=== PATIENT | male | born 1950 | race Caucasian/White ===

== ENCOUNTER 2020-11-26 06:53 | Outpatient (REF) | payer MEDICARE, SELFPAY ==
[2020-11-26 07:44] LABS: Anion Gap 12 (12-20); Blood Urea Nitrogen 12 mg/dL (9-16); Carbon Dioxide 28 mmol/L (22-29); Chloride 105 mmol/L (96-108); Estimated Glomerular Filt Rate > 60; Potassium 4.8 mmol/l (3.3-5.1); Sodium 140 mmol/L (135-145)
== END 2020-11-26 06:54 | disposition home or self-care (01) ==
LOC: HO.LAB 06:53
PROVIDERS: Visit Provider Family Medicine
DX: R79.89 Other specified abnormal findings of blood chemistry (principal)
CPT/HCPCS: 36415; 80051; 82565; 84520

== ENCOUNTER → 2021-01-13 12:36 | Outpatient (BNVA) | payer MEDICARE, SELFPAY | PROVIDERS: PCP Family Medicine; Visit Provider Internal Medicine Cardiovascular Disease | DX: R53.83 Other fatigue (principal); I25.10 Atherosclerotic heart disease of native coronary artery without angina pectoris; I10 Essential (primary) hypertension | CPT/HCPCS: 99212 ==

== ENCOUNTER 2021-06-30 09:16 | Outpatient (REF) | payer MEDICARE, SELFPAY ==
[2021-06-30 10:13] LABS: MANUAL DIFF FLAG NO
[2021-06-30 10:19] LABS: Basophils Percent Auto 0.5 % (0-2); Eosinophils Absolute Auto 0.3 X10*3/uL (0.0-0.4); Eosinophils Percent Auto 4.3 % (0-4); Hematocrit 43.5 % (42-52); Hemoglobin 14.6 g/dl (14.0-18.0); Imm Gran Abs Auto 0.04 X10*3/uL (0.00-0.03); Imm Gran Pct Auto 0.7 % (0.0-0.4); Lymphocytes Absolute Auto 1.5 X10*3/uL (1.2-4.9); Lymphocytes Percent Auto 25.6 % (20-40); Mean Corpuscular HGB Conc 33.6 g/dl (31.0-36.0); Mean Corpuscular Hemoglobin 32.4 pg (27.0-33.0); Mean Corpuscular Volume 96.7 fL (80-98); Mean Platelet Volume 9.6 fL (9.4-12.4); Monocytes Absolute Auto 0.6 X10*3/uL (0.1-1.2); Monocytes Percent Auto 10.1 % (2-11); Neutrophils Absolute Auto 3.4 X10*3/uL (2.0-8.3); Neutrophils Percent Auto 58.8 % (45-73); Platelet Count 214 X10*3/uL (160-400); White Blood Count 5.8 X10*3/uL (4.8-10.8)
[2021-06-30 10:40] LABS: Alanine Aminotransferase 27 U/L (0-40); Anion Gap 11 (12-20); Aspartate Amino Transferase 25 U/L (5-37); Blood Urea Nitrogen 12 mg/dL (9-16); Carbon Dioxide 27 mmol/L (22-29); Chloride 107 mmol/L (96-108); Estimated Glomerular Filt Rate > 60; Magnesium 2.2 mg/dL (1.6-2.6); Potassium 4.2 mmol/L (3.3-5.1); Sodium 141 mmol/L (135-145)
== END 2021-06-30 09:17 | disposition home or self-care (01) ==
LOC: HO.10HDL 09:16
PROVIDERS: PCP Family Medicine; Visit Provider Family Medicine
DX: Z13.89 Encounter for screening for other disorder (principal)
CPT/HCPCS: 36415; 80051; 82550; 82565; 83735; 84450; 84460; 84520; 85025

== ENCOUNTER → 2021-07-28 15:12 | Outpatient (BNVA) | payer MEDICARE, SELFPAY | PROVIDERS: PCP Family Medicine; Visit Provider Internal Medicine Cardiovascular Disease | DX: I25.10 Atherosclerotic heart disease of native coronary artery without angina pectoris (principal); I10 Essential (primary) hypertension; Z95.5 Presence of coronary angioplasty implant and graft; Z98.890 Other specified postprocedural states | CPT/HCPCS: 93005; 99212 ==

== ENCOUNTER 2021-09-18 11:33 | Outpatient (REF) | payer MEDICARE, SELFPAY ==
--- NOTE | ~2021-09-18 | XR_ITS ---
EXAMINATION: XR THORACIC SPINE CLINICAL INFORMATION: Back pain COMPARISON: None TECHNIQUE: 3 views of the thoracic spine were obtained. FINDINGS: Bone alignment is normal. No fracture or dislocation is seen. There is multilevel degenerative disc disease and spondylosis of the mid and lower thoracic spine. Paraspinal soft tissues are normal. XR/XR thoracic spine 3V IMPRESSION: Multilevel degenerative disc disease and spondylosis of the mid and lower thoracic spine.
--- NOTE | 2021-09-18 11:44 | ECG_ITS ---
Test Reason : palpitations Blood Pressure : / mmHG Vent. Rate : 059 BPM Atrial Rate : 059 BPM P-R Int : 162 ms QRS Dur : 100 ms QT Int : 412 ms P-R-T Axes : 044 035 031 degrees QTc Int : 407 ms Sinus bradycardia Otherwise normal ECG When compared with ECG of 24-JUN-2012 10:25, No significant change was found Heart rate has decreased Referred By: Agustin Mullen Electronically Signed By:SOPHIE LITTLE MD
== END 2021-09-18 11:34 | disposition home or self-care (01) ==
LOC: HO.XRAY 11:33
PROVIDERS: PCP Family Medicine; Visit Provider Family Medicine
DX: R00.2 Palpitations (principal); M54.9 Dorsalgia, unspecified
CPT/HCPCS: 72072; 93005

== ENCOUNTER → 2021-09-30 15:02 | Outpatient (BNVA) | payer MEDICARE, SELFPAY | PROVIDERS: PCP Family Medicine; Visit Provider Nurse Practitioner Family | DX: I25.10 Atherosclerotic heart disease of native coronary artery without angina pectoris (principal); I10 Essential (primary) hypertension; R10.9 Unspecified abdominal pain; Z95.5 Presence of coronary angioplasty implant and graft | CPT/HCPCS: 99212 ==

== ENCOUNTER 2022-03-16 06:44 | Outpatient (REF) | payer MEDICARE, SELFPAY ==
[2022-03-16 07:46] LABS: Alanine Aminotransferase 24 U/L (0-40); Anion Gap 16 (12-20); Aspartate Amino Transferase 27 U/L (5-37); Blood Urea Nitrogen 10 mg/dL (9-16); Carbon Dioxide 24 mmol/L (22-29); Chloride 105 mmol/L (96-108); Cholesterol 153 mg/dL; Estimated Glomerular Filt Rate > 60; HDL Cholesterol 39 mg/dL; LDL Cholesterol Calculated 70 mg/dl; Potassium 4.8 mmol/L (3.3-5.1); Sodium 140 mmol/L (135-145); Triglycerides 222 mg/dL
== END 2022-03-16 06:45 | disposition home or self-care (01) ==
LOC: HO.LAB 06:44
PROVIDERS: PCP Family Medicine; Visit Provider Family Medicine
DX: I10 Essential (primary) hypertension (principal); E78.00 Pure hypercholesterolemia, unspecified; Z79.899 Other long term (current) drug therapy
CPT/HCPCS: 36415; 80051; 80061; 82550; 82565; 84450; 84460; 84520

== ENCOUNTER → 2022-07-29 08:47 | Outpatient (BNVA) | payer MEDICARE, SELFPAY | PROVIDERS: PCP Family Medicine; Referring Provider Family Medicine; Visit Provider Internal Medicine Cardiovascular Disease | DX: I25.10 Atherosclerotic heart disease of native coronary artery without angina pectoris (principal); I10 Essential (primary) hypertension; Z95.5 Presence of coronary angioplasty implant and graft | CPT/HCPCS: 93005; 99212 ==

== ENCOUNTER → 2022-08-19 08:17 | Outpatient (REF) | payer MEDICARE, SELFPAY ==
--- NOTE | 2022-08-19 08:20 | CA_ITS ---
Transthoracic Echocardiogram Patient (Last, First, Middle): Darrick Ty E Gender: Male Date of : 1950 Age: 72 Procedure Date: 08/19/2022 Procedure Type: Transthoracic Echocardiogram Location: OP Height: 167.64 cm Weight: 89.81 kg BSA: 1.99 m2 Heart Rate: bpm BP: 130 / 64 mmHg Rotary Dump Operator: TO Referring MD: Williams Monzon MD Solvent Mixer: Williams Monzon MD Symptoms: I25.10 - Atherosclerotic heart disease of [place] coronary artery without... Study Quality: Adequate Conclusions: - Normal left ventricular size, thickness, systolic function, and wall motion. The visually estimated ejection fraction is between 55-60%. Diastolic function is normal for age. - Normal right ventricular cavity size and systolic function. - The left atrium is mildly dilated. The right atrium is mildly dilated. - There is mild dilatation of the sinuses of Valsalva measuring 3.69 cm and mild dilatation of the ascending aorta measuring 3.50 cm. Findings Left Ventricle Normal left ventricular size, thickness, systolic function, and wall motion. The visually estimated ejection fraction is between 55-60%. Diastolic function is normal for age. Right Ventricle Normal right ventricular cavity size and systolic function. Atria The left atrium is mildly dilated. The right atrium is mildly dilated. Aortic Valve Normal aortic valve structure and function. There is no aortic valve stenosis. There is no aortic valve regurgitation. Mitral Valve Normal mitral valve structure and function. There is trace mitral valve regurgitation. There is no mitral valve stenosis. Pulmonic Valve Normal pulmonic valve structure and function. There is trace pulmonic valve regurgitation. Tricuspid Valve Normal tricuspid valve structure and function. There is trace tricuspid valve regurgitation. Normal right atrial pressure. There is no evidence of pulmonary hypertension. Great Vessels There is mild dilatation of the sinuses of Valsalva measuring 3.69 cm and mild dilatation of the ascending aorta measuring 3.50 cm. The visualized portions of the pulmonary artery and branches are normal. Venous The inferior vena cava is normal in size and collapses greater than 50% with inspiration. Pericardium/Pleural There is no evidence of pericardial effusion. Prior Study Comparison No prior study available for comparison. Measurements 2D Linear Measurements IVSd: 1.09 0.6-0.9/0.6-1.0 cm LVIDd: 5.20 3.9-5.3/4.2-5.9 cm LVIDd Index: 2.61 2.4-3.2/2.2-3.1 cm/m2 LVIDs: 2.75 2.0-3.6 cm LVPWd: 0.99 0.7-1.1 cm LA Diam: 4.20 2.7-3.8/3.0-4.0 cm LAIDs Index: 2.11 1.5-2.3 cm/m2 LV Mass: 255.36 67-162/88-224 g LV Mass Index: 128.32 43-95/49-115 g/m2 LVOT Diam: 2.20 3.0+(-)1.3 cm 2D Systolic Function EF 4C: 59.10 >55% EF 2C: 58.30 >55% EF BiP: 59.30 >55% Mitral Valve MV Pk E: 0.55 MV PK A: 0.39 MV Decel Time: 300.00 E/A: 1.40 E'Lateral: 9.36 E'Medial: 6.09 E/E' Med: 9.00 E/E' Lat: 5.90 PHT: 88.00 MVA PHT: 2.50 Decel [place]: 1.83 Aortic Valve AoV Pk Luis F: 1.54 AoV Mn Luis F: 1.05 AoV VTI: 0.35 AoV Pk Grad: 9.00 Aov Mn Grad: 5.00 DEBORAH Cont.VTI: 2.46 LVOT LVOT Pk Luis F: 0.98 LVOT Mn Luis F: 0.59 LVOT VTI: 0.23 LVOT Pk Grad: 4.00 LVOT Mn Grad: 2.00 LVOT Diam: 2.20 LVOT Area: 3.80 Diastolic Function MV Pk E: 0.55 MV Pk A: 0.39 E/A: 1.40 E'Medial: 6.09 E/E' Med: 9.00 E' Laterial: 9.36 E/E' Lat: 5.90 Right Ventricle TAPSE (mm): 29.50 TVS' Luis F: 11.70 Tricuspid Valve TR Pk Luis F: 2.46 TR Pk Grad: 24.00 RA Press: 3.00 RVSP: 27.00 Great Vessels Aorta Sinus of Valsalva: 3.69 2.0-3.5 cm Ao Asc: 3.50 2.1-3.4 cm Updated in Other Vendor System with Status of Final Williams Monzon MD electronically signed on 08/20/2022 7:49:51 PM with status of Final
== END ==
LOC: HO.CARD 08:17
PROVIDERS: Visit Provider Internal Medicine Cardiovascular Disease
DX: I25.10 Atherosclerotic heart disease of native coronary artery without angina pectoris (principal)
CPT/HCPCS: 93306

== ENCOUNTER 2022-09-08 06:44 | Outpatient (REF) | payer MEDICARE, SELFPAY ==
[2022-09-08 07:45] LABS: Anion Gap 14 (12-20); Blood Urea Nitrogen 12 mg/dL (9-16); Carbon Dioxide 29 mmol/L (22-29); Chloride 103 mmol/L (96-108); Estimated Glomerular Filt Rate > 60; Potassium 4.6 mmol/L (3.3-5.1); Sodium 141 mmol/L (135-145)
== END 2022-09-08 06:45 | disposition home or self-care (01) ==
LOC: HO.LAB 06:44
PROVIDERS: PCP Family Medicine; Visit Provider Family Medicine
DX: I10 Essential (primary) hypertension (principal)
CPT/HCPCS: 36415; 80051; 82565; 84520

== ENCOUNTER 2023-08-02 08:46 | Outpatient (AMB) | payer MEDICARE, SELFPAY ==
[2023-08-02 08:52] VITALS: BP 130/80; PULSE 63; BMI 31.1
--- NOTE | 2023-08-02 08:52 | A.OFFVIS_ITS ---
Intake Vital Signs 08/02/23 08:52 Height 5 ft 7 in Weight 198 lb 6.656 oz BMI 31.1 BP 130/80 Blood Pressure Location Lt brachial Position Sitting Pulse 63 Intake Visit Reasons: 1 yr f/up Intake Note: 1 year follow-up with ekg feeling good Post Doc Fellowship Required: No Allergies No Known Allergies Allergy (Verified 07/29/22 08:49) Medication List - Last Reconciled 08/02/23 by Te Monzon MD amlodipine 5 mg PO DAILY aspirin (Adult Low Dose Aspirin) 81 mg PO DAILY atorvastatin 20 mg PO DAILY losartan 100 mg PO DAILY metoprolol tartrate 12.5 mg PO BID omeprazole 40 mg PO DAILY tramadol 50 mg PO TID PRN HPI HPI Comments History of Present Illness Details Pleasant 73-year-old gentleman here for follow-up. He has known history of coronary artery disease and previous distal RCA into PDA PCI complicated by side branch occlusion which was PLV. He did well since then. He has no chest discomfort. Blood pressure is well controlled on the current regimen. He has stopped taking the Plavix. He is taking baby aspirin. No bleeding issues. He is limited due to arthritis but denying any significant chest discomfort shortness of breath. 08/02/23: He returns for follow-up. He is denying any chest discomfort sh ortness of breath. His main complaints in the are related to arthritis involving his lower back and hands. He is saying he continues to work and exercise and has no exertional symptoms. [facility] Medical History Arthritis C2 cervical fracture Carpal tunnel syndrome Hypertension Scoliosis Surgical History History of cardiac cath Family History Father HTN (hypertension) Cardiac arrest Mother HTN (hypertension) Stroke Sister HTN (hypertension) Cancer Social History (Updated 07/29/22 @ 09:01 by GEORGIA Varghese) Alcohol intake: never Patient Tobacco Use Status: Former Tobacco user Quit Date: 1970 Years Smoked: 3 +/- Review of Systems Const Denies chills, Denies fatigue, Denies fever(s), Denies frequent falls, Denies weakness, Denies weight gain and Denies weight loss ENT Denies dizziness Card Denies chest pain, Denies leg edema, Denies lightheadedness, Denies palpitations, Denies dyspnea, Denies dyspnea on exertion, Denies orthopnea and Denies other (loss of consciousness) Resp Denies cough, Denies dyspnea and Denies dyspnea on exertion GI Denies hematochezia and Denies change in stool character Musc Denies abnormal gait, Denies muscle weakness, Denies numbness, Denies radiating pain into limb and Denies tingling Neuro Denies abnormal gait, Denies dizziness, Denies frequent falls, Denies numbness, Denies tingling and Denies weakness Endo Denies fatigue and Denies palpitations Physical Exam Vital Signs: BMI result Body Mass Index 31.1 GENERAL APPEARANCE: in no acute distress, well developed, well nourished. NECK/THYROID: no carotid bruit, no jugular venous distention. SKIN: no suspicious lesions, warm and dry. HEART: no murmurs, regular rate and rhythm, S1, S2 normal. LUNGS: clear to auscultation bilaterally. ABDOMEN: normal, bowel sounds present, soft, nontender, nondistended. EXTREMITIES: no clubbing, cyanosis, or edema. PERIPHERAL PULSES: equal. NEUROLOGIC: nonfocal, alert and oriented. PSYCH: mood/affect full range. Office Procedures EKG Details: Sinus rhythm 63 beats per minute, normal axis, poor R-wave progression, QTC 395 milliseconds. [id number], Complete Assessment & Plan Assessment & Plan (1) Stable angina: Code(s): I20.8 - Other forms of angina pectoris Plan Pleasant 73-year-old gentleman who is presenting for follow-up. He has stable angina at this point. He is physically active and denies any exertional issues right now. Main complaints are arthritis and low back issues. Blood pressure control is good. Clinically stable and will see us back in 1 year. Thank you for allowing me to participate in the care of your patient. Please feel free to contact me if you have any questions. Coding Level of Care Code Est Pt Level 3 (55303) Diagnoses Stable angina I20.8 CPT Codes EKG - CPT: 19758-[id number], Complete ([id number])
== END 2023-08-02 09:15 | disposition home or self-care (01) ==
PROVIDERS: PCP Family Medicine; Visit Provider Internal Medicine Cardiovascular Disease
DX: I20.8 Other forms of angina pectoris (principal)
CPT/HCPCS: 93010; 99213

== ENCOUNTER → 2023-08-02 08:46 | Outpatient (BNVA) | payer MEDICARE, SELFPAY | PROVIDERS: PCP Family Medicine; Visit Provider Internal Medicine Cardiovascular Disease | DX: I20.8 Other forms of angina pectoris (principal) | CPT/HCPCS: 93005; 99212 ==

== ENCOUNTER 2023-10-13 08:11 | Emergency (ER) | payer MEDICARE, SELFPAY ==
--- NOTE | ~2023-10-13 | CT_ITS ---
EXAMINATION: CT ABDOMEN AND PELVIS WITH CONTRAST CLINICAL INFORMATION: Abdominal pain and bloating. Rule out pancreatitis. COMPARISON: Ultrasound abdomen 06/29/2012 TECHNIQUE: Multidetector volumetric images were obtained from the superior aspect of the liver through the pubic symphysis following administration 85 mL of Omnipaque 350 intravenous contrast. Sagittal and coronal reformatted images were obtained on the technologist's workstation. Oral contrast: No This CT examination was performed using dose optimization techniques as appropriate, variously including the following: *Automated exposure control *Adjustment of mA and/or kV according to patient size (this includes techniques or standardized protocols for targeted exams where dose is matched to indication/reason for exam; i.e. extremities or head) *Use of iterative reconstruction technique DLP: 640 mGy-cm FINDINGS: LUNG BASES: There is lingular atelectasis. The heart size is normal. A small hiatal hernia. LIVER, GALLBLADDER, AND BILIARY TREE: The liver is normal in size, shape, and attenuation. No focal hepatic lesion or biliary ductal dilatation is present. There are multiple radiopaque gallstones without wall thickening or pericholecystic fluid collection. PANCREAS: The head of the pancreas is atrophied. The body and the tail of pancreas appears unremarkable.. SPLEEN: Unremarkable. ADRENAL GLANDS: Unremarkable. KIDNEYS AND URETERS: The kidneys are normal in size, shape, and attenuation. No hydronephrosis, hydroureter, or calculi seen. There is mild bilateral perinephric stranding. There are several punctate hypodensities in the midpole left kidney measuring fluid density likely small cysts. BLADDER: Unremarkable. GASTROINTESTINAL TRACT: Scattered stool, gas seen throughout the colon without distention. The small bowel loops are normal caliber. Appendix is not visualized. There is no free air or free fluid. No inflammatory process seen either. ABDOMINAL WALL: No significant hernia is appreciated. LYMPH NODES: Normal. VASCULAR: Unremarkable. PELVIC VISCERA: There is moderate prostate enlargement. No abnormal pelvic lymph nodes. No evidence of hernia. OSSEOUS STRUCTURES: There are degenerative disc changes with vacuum disc phenomena and spondylosis at every lumbar disc level. No aggressive lytic or sclerotic process seen. CT/CT abdomen pelvis w IV con IMPRESSION: 1. No acute intra-abdominal process seen. 2. Cholelithiasis without wall thickening. 3. Moderate prostate enlargement. 4. Small cysts in the upper pole left kidney Fleischner guidelines were followed.
--- NOTE | 2023-10-13 08:43 | ECG_ITS ---
Test Reason : epigastric pain Blood Pressure : / mmHG Vent. Rate : 092 BPM Atrial Rate : 092 BPM P-R Int : 162 ms QRS Dur : 098 ms QT Int : 368 ms P-R-T Axes : 039 002 015 degrees QTc Int : 455 ms Sinus rhythm with occasional Premature ventricular complexes Inferior infarct , age undetermined Anteroseptal infarct , age undetermined Abnormal ECG When compared with ECG of 18-SEP-2021 11:50, Premature ventricular complexes are now Present Vent. rate has increased BY 33 BPM Anteroseptal infarct is now Present Inferior infarct is now Present QT has lengthened Referred By: Nabor Todd Electronically Signed By:SANDHYA HAIRSTON
--- NOTE | 2023-10-13 08:43 | ED.ABDPAIN ---
HPI - Abdominal Pain General Chief Complaint: Abdominal Pain Stated Complaint: RUQ PAIN,CP,ETOH USE PER EMS Time Seen by Provider: 10/13/23 08:15 Source: patient Mode of arrival: EMS Limitations: no limitations History of Present Illness HPI narrative: 73-year-old male with a history of hypertension, hyperlipidemia, coronary artery disease ( no ID, stent 6 years prior), arthritis who presents emergency department for evaluation of abdominal pain, cramping a bloated sensation. He states that at 04:00 hours he woke up with abdominal pain he states the pain was greater than 10/10. He felt extremely bloated. He was diaphoretic and short of breath. States that he had nausea but no vomiting. At the time of evaluation he states that his pain is resolved he states that he had similar pain 8 years ago but never got a diagnosis. Patient states that he last moved his bowels yesterday unusually moves his bowels once or twice a day. He did not notice any dark bloody bowel movements or black bowel movements. He denied fever, chills, cough, chest pain, diarrhea, frequency, urgency or dysuria. Related Data Home Medications Medication Instructions Recorded Confirmed aspirin 81 mg tablet,delayed 81 mg PO DAILY 01/13/21 08/02/23 release (Adult Low Dose Aspirin) atorvastatin 20 mg tablet 20 mg PO DAILY 01/13/21 08/02/23 losartan 100 mg tablet 100 mg PO DAILY 01/13/21 08/02/23 metoprolol tartrate 25 mg tablet 12.5 mg PO BID 01/13/21 08/02/23 omeprazole 40 mg capsule,delayed 40 mg PO DAILY 01/13/21 08/02/23 release tramadol 50 mg tablet 50 mg PO TID PRN 01/13/21 08/02/23 Previous Rx's Medication Instructions Recorded amlodipine 5 mg tablet 5 mg PO DAILY #90 tabs 11/06/22 Allergies Allergy/AdvReac Type Severity Reaction Status Date / Time No Known Allergies Allergy Verified 07/29/22 08:49 Review of Systems Review of Systems Yes all other systems are reviewed and are negative [facility] Past Medical History [facility] Narrative: Social history: He denies tobacco, alcohol and drug use. Medical History Arthritis C2 cervical fracture Carpal tunnel syndrome Hypertension Scoliosis Surgical History History of cardiac cath Family History Family History Father HTN (hypertension) Cardiac arrest Mother HTN (hypertension) Stroke Sister HTN (hypertension) Cancer Social History Social History (Updated 07/29/22 @ 09:01 by GEORGIA Varghese) Alcohol intake: never Patient Tobacco Use Status: Former Tobacco user Quit Date: 1970 Years Smoked: 3 +/- Smoked in Last 30 Days: No Use of substances other than those prescribed or required for medical reasons: No Advance Directives: No Advance Directives Information Provided: Yes Physical Exam ED Vital Signs: Vital Signs - 24 hr 10/13/23 08:58 10/13/23 10:05 10/13/23 11:13 Temperature 98.7 F 98.0 F Pulse Rate 101 H 64 67 Respiratory Rate 13 18 15 Blood Pressure 157/80 H 127/70 130/63 Pulse Oximetry 94 93 96 Oxygen Delivery Method Room Air Room Air Room Air 10/13/23 11:53 Temperature Pulse Rate 79 Respiratory Rate 18 Blood Pressure 137/72 Pulse Oximetry 95 Oxygen Delivery Method Room Air BMI result Body Mass Index 32.2 Exam: General: Awake, alert in no distress Head: Normocephalic, atraumatic EENT: PERRL, Lids normal, sclera normal, conjunctiva normal, nose normal , ears normal, throat without erythema or exudates Neck: Supple, no adenopathy, no trachea midline or C-spine tenderness Lung: breath sounds symmetric, no wheezing, rales or rhonchi Chest: symmetric movement, nontender Heart: regular rate and rhythm, normal S1, S2 no murmurs or rubs Abdomen: soft, obese, non-tender, distended, normal bowel sounds Back: no vertebral tenderness, no CVAT Extremities: no deformities, moves all extremities symmetrically Neuro: Awake, alert, oriented, normal speech, cranial nerves intact, moves all extremities symmetrically Psych: Pleasant, cooperative Medical Decision Making Medical Decision Making MDM Narrative: 73-year-old male with a history of hypertension, hyperlipidemia, coronary artery disease ( no ID, stent 6 years prior), arthritis who presents emergency department for evaluation of abdominal pain, cramping a bloated sensation. He states that at 04:00 hours he woke up with bloated, abdominal pain he states the pain was greater than 10/10 associated with shortness of breath, diaphoresis and nausea. Patient is currently pain-free. He states he had similar pain 8 years prior but never was given a diagnosis. Patient has had no abdominal surgeries. Exam revealed no abdominal tenderness but he does appear to be distended. Following evaluation was ordered: CBC, CMP, lipase, PT/INR, PTT, troponin, urinalysis, CT scan of the abdomen pelvis with IV contrast, EKG Patient was treated with normal saline 1 L IV 12:06 Patient's laboratory evaluation revealed mild elevations in white blood cell count, elevated glucose elevated ALT and bilirubin otherwise but otherwise nonspecific. CT scan with IV contrast did not reveal a clear cause for the patient's pain, he did have gallstones and small left renal cyst which were incidental findings and not the explanation of his pain. Patient is feeling significantly better and has no abdominal tenderness, patient's pain was most likely caused by retention gas I did discuss this with him Patient was discharged home. Differential Diagnosis Differential Diagnoses: The differential diagnosis associated with the presentation includes Differential diagnosis includes but is not limited to bowel obstruction, perforation, pancreatitis, appendicitis, gastritis, ischemia, myocardial infarction, myocardial ischemia Admission/Observation Consideration of admission/observation: Escalation of care including admission/observation considered Lab Data MDM Lab Attestation statement: I reviewed the patient's lab results. My interpretation patient's laboratory evaluation as follows: WBC elevated 12,200, elevated glucose 127, elevated bilirubin 0.7, elevated AST 111, lipase normal. Troponin below detectable limits. Urinalysis was negative. 10/13/23 09:20 10/13/23 09:20 Labs: Lab Results 10/13/23 10/13/23 Range/Units 09:20 10:21 WBC 12.2 H (4.8-10.8) X10*3/uL RBC 4.51 L (4.60-5.80) X10*6/uL Hgb 14.5 (14.0-18.0) g/dl Hct 42.5 (42.0-52.0) % MCV 94.2 (80.0-98.0) fL MCH 32.2 (27.0-33.0) pg MCHC 34.1 (31.0-36.0) g/dl RDW 13.0 (11.0-16.0) % Plt Count 196 (160-400) X10*3/uL MPV 9.2 L (9.4-12.4) fL Immature Gran % (Auto) 0.4 (0.0-0.4) % Neut % (Auto) 90.7 H (45-73) % Lymph % (Auto) 3.9 L (20-40) % [place] % (Auto) 4.7 (2-11) % Eos % (Auto) 0.1 (0-4) % Baso % (Auto) 0.2 (0-2) % Lymph # (Auto) 0.5 L (1.2-4.9) X10*3/uL [place] # (Auto) 0.6 (0.1-1.2) X10*3/uL Eos # (Auto) 0.0 (0.0-0.4) X10*3/uL Baso # (Auto) 0.0 (0.0-0.2) X10*3/uL Abs Immat Gran (auto) 0.05 H (0.00-0.03) X10*3/uL Absolute Neuts (auto) 11.0 H (2.0-8.3) x10*3/uL Absolute Nucleated RBC 0.000 (0.0-0.012) X10*3/uL Nucleated RBC % (auto) 0.0 (0.0-0.2) /100WBC Smear Tech's Comments VERIFIED PT 12.2 (11.1-13.3) SEC INR 1.0 (0.9-1.1) APTT 30.9 (26.0-36.4) SEC Sodium 138 (135-145) mmol/L Potassium 4.1 (3.3-5.1) mmol/L Chloride 108 (96-108) mmol/L Carbon Dioxide 22 (22-29) mmol/L Anion Gap 12 (12-20) BUN 14 (9-16) mg/dL Creatinine 0.70 (0.5-1.4) mg/dL Estim Creat Clear Calc 99.0 Estimated GFR > 60 Random Glucose 127 H (60-115) mg/dL Calcium 8.9 (8.4-10.2) mg/dL Total Bilirubin 1.7 H (0.0-1.0) mg/dL AST 148 H (5-37) U/L ALT 111 H (0-40) U/L Alkaline Phosphatase 99 (39-117) U/L Troponin I High Sens < 2.7 (<3.5-35.0) ng/L Total Protein 7.1 (6.5-8.0) g/dL Albumin 4.0 (3.5-5.0) g/dL Lipase 17 (8-78) U/L Urine Color Yellow Urine Appearance Clear Urine pH 8.0 (5.0-9.0) Ur Specific [place] 1.015 (1.005-1.025) Urine Protein Negative (Neg-Trace) mg/dL Urine Glucose (UA) Negative (Negative) mg/dL Urine Ketones Negative (Negative) mg/dL Urine Blood Negative (Negative) Urine Nitrite Negative (Negative) Ur Leukocyte Esterase Negative (Negative) Radiology Impression Discussion of test interpretation with radiology: I have reviewed the radiologist's reading. Radiologist Impression: CT abdomen pelvis w IV con IMPRESSION: 1. No acute intra-abdominal process seen. 2. Cholelithiasis without wall thickening. 3. Moderate prostate enlargement. 4. Small cysts in the upper pole left kidney Fleischner guidelines were followed. Dictated By: Octavio Shaffer MD Chronic Conditions Patient?s care impacted by: Hypertension and Other (Coronary artery disease) Medications Administered Discontinued Medications Generic Name Dose Route Start Last Admin Trade Name Freq PRN Reason Stop Dose Admin Sodium Chloride 1,000 mls @ 999 mls/hr 10/13/23 08:43 10/13/23 10:22 Ns IV 10/13/23 09:43 999 mls/hr .Q1H1M STA Administration Iohexol 100 ml 10/13/23 10:44 10/13/23 10:45 Iohexol 350 Mg/Ml 100 Ml Infus..Btl IV 10/13/23 10:45 85 ml ONCE ONE Administration Discharge Plan Discharge Clinical Impression: Abdominal pain Qualifiers: Abdominal location: generalized Qualified Code(s): R10.84 - Generalized abdominal pain Patient Disposition: Home, Self-Care Instructions: Abdominal Pain (ED) Additional Instructions: Your blood work was nondiagnostic. The CT scan of your abdomen pelvis with IV contrast did not reveal a clear cause of your pain which is reassuring. There were 2 incidental findings: 1. Gallstone with no swelling or inflammation of your gallbladder 2. Small cysts in your left kidney but no evidence of kidney stones Your pain was most likely caused by retention of gas. Continue taking medications as prescribed by your providers. Follow-up with your doctor in 2 days. Please return to the emergency department if your symptoms get worse or if you develop any symptoms that are concerning to you. Prescriptions: No Action amlodipine 5 mg tablet 5 mg PO DAILY Qty: 90 3RF losartan 100 mg tablet 100 mg PO DAILY atorvastatin 20 mg tablet 20 mg PO DAILY omeprazole 40 mg capsule,delayed release(DR/EC) 40 mg PO DAILY metoprolol tartrate 25 mg tablet 12.5 mg PO BID tramadol 50 mg tablet 50 mg PO TID PRN aspirin [Adult Low Dose Aspirin] 81 mg tablet,delayed release (DR/EC) 81 mg PO DAILY
[2023-10-13 08:56] VITALS: BP 162/86; PULSE 102; O2SAT 97
[2023-10-13 08:58] VITALS: BP 157/80; PULSE 101; RESP 13; TEMP 37.1; O2SAT 94; BMI 32.2
[2023-10-13 09:29] LABS: Basophils Percent Auto 0.2 % (0-2); Eosinophils Percent Auto 0.1 % (0-4); Hematocrit 42.5 % (42.0-52.0); Hemoglobin 14.5 g/dl (14.0-18.0); Imm Gran Abs Auto 0.05 X10*3/uL (0.00-0.03); Imm Gran Pct Auto 0.4 % (0.0-0.4); Lymphocytes Absolute Auto 0.5 X10*3/uL (1.2-4.9); Lymphocytes Percent Auto 3.9 % (20-40); MANUAL DIFF FLAG SCAN; Mean Corpuscular HGB Conc 34.1 g/dl (31.0-36.0); Mean Corpuscular Hemoglobin 32.2 pg (27.0-33.0); Mean Corpuscular Volume 94.2 fL (80.0-98.0); Mean Platelet Volume 9.2 fL (9.4-12.4); Monocytes Absolute Auto 0.6 X10*3/uL (0.1-1.2); Monocytes Percent Auto 4.7 % (2-11); Neutrophils Percent Auto 90.7 % (45-73); Platelet Count 196 X10*3/uL (160-400); Red Blood Count 4.51 X10*6/uL (4.60-5.80); SCAN SMEAR FLAG 1; White Blood Count 12.2 X10*3/uL (4.8-10.8)
[2023-10-13 09:32] LABS: Prothrombin Time 12.2 SEC (11.1-13.3)
[2023-10-13 09:35] LABS: Partial Thromboplastin Time 30.9 SEC (26.0-36.4)
--- OUTSIDE RECORDS SUMMARY | 2023-10-13 09:38 | XMS_ITS | Continuity of Care Document ---
Author Name Unknown Organization [facility] ter Address [address] [place] [id number] Care Team Providers Care Downstairs Maid Name Role Phone Sebas BOSTON, Agustin Esquivel Primary Care Physician Encounter [facility] Date(s): 09/08/21 - 09/09/[address] [id number] Discharge Disposition: A-D/C Home Attending Physician: Nory Bowman MD Admitting Physician: Jenifer Adam DO Referring Physician: Not on Staff, Referring MD Allergies, Adverse Reactions, Alerts Substance Reaction Severity Status NKA Active Medications amLODIPine 5 mg oral tablet 5 mg, 1, tablet, By Mouth, Daily, # 30 tablet, Refills 0, Maintenance, 09/08/21 13:57:00 EDT, Partial fill upon patient request if the prescription is for a schedule II opioid drug. Start Date: 09/08/21 Status: Ordered amLODIPine 5 mg oral tablet 5 mg, Tablet, By Mouth, 09/09/21 9:00:00 EDT Start Date: 09/09/21 Stop Date: 09/09/21 Status: Completed aspirin 81 mg oral capsule 4 capsule = 324 mg, By Mouth, Every 4 hours, 0 Refills, Maintenance, 09/08/21 13:53:00 EDT, Partialfill upon patient request if the prescription is for a schedule II opioid drug. Start Date: 09/08/21 Status: Ordered atorvastatin 20 mg oral tablet 1 tablet = 20 mg, By Mouth, Every 48 hours, # 30 tablet, 0 Refills, Maintenance, Tablet, Route to Pharmacy Electronically, NCPDP_ID-[id number], [facility] Start Date: 03/28/19 Status: Ordered losartan 50 mg oral tablet 50 mg, 1, tablet, By Mouth, Daily, # 90 tablet, Refills 0, Maintenance, 09/08/21 13:52:00 EDT, Partial fill upon patient request if the prescription is for a schedule II opioid drug. Start Date: 09/08/21 Status: Ordered Metoprolol Tartrate 25 mg oral tablet 0.5 tablet = 12.5 mg, By Mouth, 2 times a day, 0 Refills, Maintenance, 09/08/21 13:52:00 EDT, Partial fill upon patient request if the prescription is for a schedule II opioid drug. Start Date: 09/08/21 Status: Ordered omeprazole 40 mg oral enteric coated capsule 1 capsule = 40 mg, By Mouth, Daily, # 90 capsule, 0 Refills, Maintenance, 09/08/21 13:51:00 EDT, ECCapsule, Partial fill upon patient request if the prescription is for a schedule II opioid drug. Start Date: 09/08/21 Status: Ordered Results Radiology Reports * Exam Date Time Procedure Performing Provider Status 09/08/21 8:05 AM Chest Portable Claudine Chamberlain; Auth (V erified) Notes: (Chest Portable) Reason For Exam: Shortness of Breath RESULT: Chest Portable Chest Portable HX OF PRESENT ILLNESS: Abd pain; Reason: Shortness of Breath; Clinical Question(s): CHF / CHF COMPARISON: None. FINDINGS: LINES AND TUBES: None. LUNGS AND PLEURA: Clear lungs. Normal pulmonary vascularity. No pleural effusion. No pneumothorax. HEART, MEDIASTINUM AND HALI: Heart is normal in size. Normal mediastinal and hilar contour. BONES AND SOFT TISSUES: No acute abnormality. IMPRESSION: No evidence of acute abnormality. WSN: [id number] Ordering Physician: Alfredo Lobato Dictated By: Sigifredo Archibald MD Dictated Date/Time: 09/08/21 8:20 am Reviewed By: Sigifredo Archibald MD Signed By: Sigifredo Archibald MD Signed Date/Time: 09/08/21 8:20 am Transcribed By: YARIEL Transcribed Date/Time: 09/08/21 8:19 am Vital Signs Most recent to oldest [Reference Range]: 1 2 3 Height 168.9 cm (09/09/21 11:51 AM) 168.9 cm (09/09/21 7:31 AM) 168.9 cm (09/09/21 4:02 AM) Weight 87.4 kg (09/08/21 1:01 PM) 87.4 kg (09/08/21 1:00 PM) Oxygen Saturation [94-100 %] 97 % (09/09/21 11:51 AM) 97 % (09/09/21 7:31 AM) 96 % (09/09/21 4:02 AM) Pulse Rate [55-90 bpm] 88 bpm (09/09/21 11:51 AM) 76 bpm (09/09/21 7:31 AM) 86 bpm (09/09/21 4:02 AM) Body Mass Index [18.5-24.99] 30.64 *>HHI* (09/08/21 1:01 PM) Blood Pressure [90-138/55-84 mm Hg] 114/64mm Hg (09/09/21 11:51 AM) 130/68mm Hg (09/09/21 8:17 AM) 125/67mm Hg (09/09/21 7:31 AM) Respiratory Rate [16-30 br/min] 18 br/min (09/09/21 11:51 AM) 18 br/min (09/09/21 8:21 AM) 17 br/min (09/09/21 7:31 AM) Temperature [96.8-100.4 DegF] 98.5 DegF (09/09/21 11:51 AM) 98.7 DegF (09/09/21 7:31 AM) 99.2 DegF (09/09/21 4:02 AM) Mode of Delivery (Oxygen) Room air (09/09/21 11:51 AM) Room air (09/09/21 7:31 AM) Room air (09/09/21 4:02 AM) Blood pressure sites Arm, right (09/09/21 11:51 AM) Arm, right (09/09/21 7:31 AM) Arm, right (09/09/21 4:02 AM) Temperature Route Oral (09/09/21 11:51 AM) Oral (09/09/21 7:31 AM) Oral (09/09/21 4:02 AM) Dry Weight 87.4 kg (09/08/21 1:01 PM) Weight Obtained Via Bed scale (09/08/21 1:01 PM) Bed scale (09/08/21 1:00 PM)
[2023-10-13 09:50] LABS: SLIDE REVIEW VERIFIED
[2023-10-13 09:56] LABS: Alanine Aminotransferase 111 U/L (0-40); Alkaline Phosphatase 99 U/L (39-117); Anion Gap 12 (12-20); Aspartate Amino Transferase 148 U/L (5-37); Bilirubin Total 1.7 mg/dL (0.0-1.0); Blood Urea Nitrogen 14 mg/dL (9-16); Calcium 8.9 mg/dL (8.4-10.2); Carbon Dioxide 22 mmol/L (22-29); Chloride 108 mmol/L (96-108); Estimated Glomerular Filt Rate > 60; Glucose Random 127 mg/dL (60-115); Lipase 17 U/L (8-78); Potassium 4.1 mmol/L (3.3-5.1); Sodium 138 mmol/L (135-145); Total Protein 7.1 g/dL (6.5-8.0)
[2023-10-13 09:58] LABS: Troponin-I High Sensitivity < 2.7 ng/L (<3.5-35.0)
[2023-10-13 10:05] VITALS: BP 127/70; PULSE 64; RESP 18; O2SAT 93
[2023-10-13] MEDS: 0.9 % Sodium Chloride 1,000 ML 999 ML IV (10:22)
[2023-10-13 10:33] LABS: Appearance Urine Clear; Color Urine Yellow; Glucose Urine UA Negative (Negative); Leukocyte Esterase Urine Negative (Negative); Nitrite Urine Negative (Negative); Specific Gravity - Urine 1.015 (1.005-1.025); Urine Blood Negative (Negative); Urine Ketones Negative (Negative); Urine Protein Negative (Neg-Trace)
[2023-10-13] MEDS: iohexoL 350 MG/ML 100 ML INFUS..BTL IV (10:45)
[2023-10-13 11:13] VITALS: BP 130/63; PULSE 67; RESP 15; TEMP 36.7; O2SAT 96
[2023-10-13 11:53] VITALS: BP 137/72; PULSE 79; RESP 18; O2SAT 95
== END 2023-10-13 12:31 | disposition home or self-care (01) ==
PROVIDERS: Emergency Provider Emergency Medicine Emergency Medical Services; PCP Family Medicine
DX: R10.84 Generalized abdominal pain (principal); R06.02 Shortness of breath; I10 Essential (primary) hypertension; E78.5 Hyperlipidemia, unspecified; Z79.02 Long term (current) use of antithrombotics/antiplatelets; Z79.82 Long term (current) use of aspirin; Z79.899 Other long term (current) drug therapy; Z87.891 Personal history of nicotine dependence
CPT/HCPCS: 36415; 74177; 80053; 81003; 83690; 84484; 85025; 85610; 85730; 93005; 99284; 99285; Q9967

== ENCOUNTER → 2023-10-13 08:43 | Outpatient (BNV) | payer MEDICARE, SELFPAY | PROVIDERS: Emergency Provider Emergency Medicine Emergency Medical Services; PCP Family Medicine; Visit Provider Internal Medicine | DX: I49.3 Ventricular premature depolarization (principal); R94.31 Abnormal electrocardiogram [ECG] [EKG] | CPT/HCPCS: 93010 ==

== ENCOUNTER 2023-10-21 09:34 | Outpatient (REF) | payer MEDICARE, SELFPAY ==
[2023-10-21 10:22] LABS: MANUAL DIFF FLAG NO
[2023-10-21 10:25] LABS: Basophils Percent Auto 0.7 % (0-2); Eosinophils Absolute Auto 0.2 X10*3/uL (0.0-0.4); Eosinophils Percent Auto 3.1 % (0-4); Hematocrit 44.5 % (42.0-52.0); Hemoglobin 15.2 g/dl (14.0-18.0); Imm Gran Abs Auto 0.02 X10*3/uL (0.00-0.03); Imm Gran Pct Auto 0.3 % (0.0-0.4); Lymphocytes Absolute Auto 1.4 X10*3/uL (1.2-4.9); Lymphocytes Percent Auto 23.6 % (20-40); Mean Corpuscular HGB Conc 34.2 g/dl (31.0-36.0); Mean Corpuscular Hemoglobin 32.9 pg (27.0-33.0); Mean Corpuscular Volume 96.3 fL (80.0-98.0); Mean Platelet Volume 9.3 fL (9.4-12.4); Monocytes Absolute Auto 0.6 X10*3/uL (0.1-1.2); Neutrophils Absolute Auto 3.7 x10*3/uL (2.0-8.3); Neutrophils Percent Auto 62.3 % (45-73); Platelet Count 220 X10*3/uL (160-400); Red Blood Count 4.62 X10*6/uL (4.60-5.80); Red Cell Distribution Width 13.3 % (11.0-16.0); White Blood Count 5.9 X10*3/uL (4.8-10.8)
[2023-10-21 10:39] LABS: Alanine Aminotransferase 53 U/L (0-40); Albumin Level 4.5 g/dL (3.5-5.0); Alkaline Phosphatase 107 U/L (39-117); Aspartate Amino Transferase 36 U/L (5-37); Bilirubin Direct 0.4 mg/dL (0.0-0.5); Bilirubin Total 1.3 mg/dL (0.0-1.0); Total Protein 7.7 g/dL (6.5-8.0)
== END 2023-10-21 09:35 | disposition home or self-care (01) ==
LOC: HO.10HDL 09:34
PROVIDERS: Visit Provider Family Medicine
DX: R10.13 Epigastric pain (principal)
CPT/HCPCS: 36415; 80076; 85025

== ENCOUNTER 2023-10-29 08:38 | Outpatient (REF) | payer MEDICARE, SELFPAY ==
--- NOTE | ~2023-10-29 | US_ITS ---
EXAMINATION: US ABDOMEN COMPLETE CLINICAL INFORMATION: Epigastric pain, gallstones, rule out cholecystitis. COMPARISON: CT abdomen and pelvis 10/13/2023 TECHNIQUE: Real-time imaging of the abdominal viscera. FINDINGS: PANCREAS: Visualized portions of the pancreas appear atrophic though of note portions are obscured by bowel gas limiting evaluation. ABDOMINAL AORTA: Atherosclerosis of the abdominal aorta. INFERIOR VENA CAVA: Visualized portions are normal. LIVER: The liver is normal in size. The liver contour is normal. Parenchymal echogenicity is normal. A 1.6 x 1.6 x 1.0 cm solid hypoechoic mass in the right hepatic lobe. There is no intrahepatic biliary duct dilatation seen. GALLBLADDER: Cholelithiasis and sludge balls within the gallbladder. Gallbladder wall is borderline to mildly thickened with trace pericholecystic fluid and moderate gallbladder distention. Per report there is a negative sonographic Herrera sign. COMMON BILE DUCT: Normal in caliber measuring 0.6 cm in diameter. RIGHT KIDNEY: Normal. No hydronephrosis. No renal calculi or focal parenchymal lesions. The kidney measures 11.7 cm in maximum dimension. LEFT KIDNEY: Benign-appearing renal cyst measuring 1 cm. No follow up imaging is recommended. No hydronephrosis or renal calculi. The kidney measures 11.5 cm in maximum dimension. SPLEEN: Normal. The spleen measures 11.6 cm in maximum dimension. FREE FLUID: None. US/US abdomen complete IMPRESSION: 1. Cholelithiasis and sludge balls within the gallbladder. Gallbladder wall is borderline to mildly thickened with trace pericholecystic fluid and moderate gallbladder distention, though there is a negative sonographic Herrera sign. Morphologically imaging findings can be seen in the setting of acute cholecystitis although this would be unusual given the absence of a sonographic Herrera sign and therefore correlation with clinical symptoms and further evaluation with HIDA scan is recommended. 2. A 1.6 cm solid hypoechoic mass in the right hepatic lobe, incompletely characterized. Recommend further characterization with contrast-enhanced MR abdomen. The findings and recommendations were discussed with Agustin Mullen MD by telephone at 10/29/2023 3:54 PM and it was ascertained that the content and urgency of the report was understood at the time of direct communication.
== END 2023-10-29 08:39 | disposition home or self-care (01) ==
LOC: HO.HMGCX 08:38
PROVIDERS: PCP Family Medicine; Visit Provider Family Medicine
DX: R10.13 Epigastric pain (principal); K80.20 Calculus of gallbladder without cholecystitis without obstruction
CPT/HCPCS: 76700

== ENCOUNTER 2023-11-03 14:06 | Outpatient (AMB) | payer MEDICARE, SELFPAY ==
--- NOTE | 2023-11-03 14:18 | A.OFFVIS_ITS ---
Intake Vital Signs 11/03/23 14:26 Height 5 ft 6 in Weight 198 lb BMI 32.0 BP 153/68 H Blood Pressure Location Rt brachial Position Sitting Pulse 91 Intake Visit Reasons: gallstones, Gallbladder sludge Intake Note: This patient presents for an assessment for gallstones, Gallbladder sludge. Patient c/o; reports afraid to eat , reports no postprandial nausea or vomiting, reports one episode of dry heaving, reports had an episode on [place] 11/01/2023. 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 He says he has known he has gallstones for over 2 years now. He says he really did not have problems with this until the past 1 or 2 months. He describes having episodes of right upper quadrant pain and tenderness. He was in the ER 3 weeks ago for an episode and is imaging studies did show gallstones. He says he had another episode about 3 days ago medication. He is LFTs have been unremarkable He does have a history of stenting about 5 years ago but he is no longer on antiplatelet.. Otherwise he says that he seems to be in good health and remains active for his age. [facility] Medical History (Updated 11/03/23 @ 14:42 by Ismael Dutta MD) Gallstones Scoliosis Carpal tunnel syndrome C2 cervical fracture Arthritis Hypertension Surgical History History of cardiac cath Family History Father HTN (hypertension) Cardiac arrest Mother HTN (hypertension) Stroke Sister HTN (hypertension) Cancer Social History Alcohol intake: never Patient Tobacco Use Status: Former Tobacco user Quit Date: 1971 Years Smoked: 3 +/- Review of Systems Const Denies chills and Denies fever(s) Card Denies chest pain, Denies dyspnea and Denies dyspnea on exertion Resp Denies cough, Denies dyspnea and Denies dyspnea on exertion GI Denies hematochezia and Denies change in bowel habits Denies hematuria and Denies difficulty urinating Musc Denies back pain and Denies limited range of motion Neuro Denies focal weakness and Denies convulsions Psych Denies depression and Denies mood swings Physical Exam Vital Signs: Last Vital Signs Pulse 91 11/03/23 14:26 BP 153/68 H 11/03/23 14:26 BMI result Body Mass Index 32.0 Const General: comfortable and no acute distress Orientation/consciousness: patient oriented x3 Neck Neck: Yes no lymphadenopathy Resp Auscultation: clear to auscultation bilaterally Cardio Rhythm: regular rhythm GI Other: No right upper quadrant tenderness or Herrera's sign Palpation (GI): Soft to palpation, nontender and no guarding Neuro General: patient oriented x3 Assessment & Plan Assessment & Plan (1) Gallstones: Code(s): K80.20 - Calculus of gallbladder without cholecystitis without obstruction Plan: He has had gallstones with symptoms. He had episodes of right upper quadrant pain the past 3 weeks. He therefore wants to proceed with cholecystectomy. I reviewed with the technique of laparoscopic cholecystectomy and possible open cholecystectomy. I explained the risks including but not limited to bleeding, infections, injury to other organs including bowel, liver and bile ducts, retained stones, bile leak, as well as the benefits and alternatives. He understands the risk of anesthesia for his age. He did have some mild elevation of his bilirubin at that time 3 weeks ago but this has improved significantly. His CAT scan does not suggest any CBD obstruction. I am going to repeat his LFTs. 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 Orders: Orders Liver Panel 11/03/23 K80.20 - Calculus of gallbladder without cholecystitis without obstruction Coding Level of Care Code New Pt Level 3 (92180) Diagnoses Gallstones K80.20
[2023-11-03 14:26] VITALS: BP 153/68; PULSE 91; BMI 32.0
== END 2023-11-03 14:40 | disposition home or self-care (01) ==
PROVIDERS: PCP Family Medicine; Visit Provider Surgery
DX: K80.20 Calculus of gallbladder without cholecystitis without obstruction (principal)
CPT/HCPCS: 99203

== ENCOUNTER 2023-11-03 14:06 | Outpatient (REF) | payer MEDICARE, SELFPAY ==
[2023-11-03 16:17] LABS: Alanine Aminotransferase 215 U/L (0-40); Albumin Level 4.2 g/dL (3.5-5.0); Alkaline Phosphatase 162 U/L (39-117); Aspartate Amino Transferase 83 U/L (5-37); Bilirubin Direct 0.5 mg/dL (0.0-0.5); Bilirubin Total 1.4 mg/dL (0.0-1.0); Total Protein 7.5 g/dL (6.5-8.0)
== END 2023-11-03 14:07 | disposition home or self-care (01) ==
LOC: HO.LAB 14:06
PROVIDERS: PCP Family Medicine; Visit Provider Surgery
DX: K80.20 Calculus of gallbladder without cholecystitis without obstruction (principal)
CPT/HCPCS: 36415; 80076; 99202

== ENCOUNTER 2023-11-10 16:50 | Inpatient (IN) | payer MEDICARE, SELFPAY ==
[2023-11-05 09:52] VITALS: BMI 31.5
--- NOTE | 2023-11-09 09:50 | HO.ANESPROP2 ---
Documented by User: Megan Linder NP 11/09/23 10:51 HPI - Anesthesia Eval Consult details Narrative: 73yo M for Cholecystectomy Laparoscopic,poss cholangiogram Cardiac cleared at [facility] (Tigertext sent in regards to new EKG changes 10/13/23. Awaiting response) [facility] Active Problems Active Problems: All Active Problems (Updated 11/05/23 @ 09:55 by Romi Grant RN) Stable angina (Acute) Stented coronary artery (Acute) Abdominal pain (Acute) Fatigue (Acute) Coronary artery disease (Acute) Essential hypertension (Acute) Gallstones (Acute) Past Medical History Medical History Hematoma GERD (gastroesophageal reflux disease) Elevated cholesterol Low back pain Depression CAD (coronary artery disease) Stable angina Gallstones Scoliosis Carpal tunnel syndrome C2 cervical fracture Arthritis Hypertension Family History Family History Father HTN (hypertension) Cardiac arrest Mother HTN (hypertension) Stroke Sister HTN (hypertension) Cancer Surgical History Surgical History S/P laparoscopic cholecystectomy Hx of carpal tunnel repair History of esophagogastroduodenoscopy (EGD) H/O colonoscopy History of cardiac cath Social History Social History Household Members: Spouse Household Members Other:: tereza Housing: House Are you a primary director day care center to a significant other at home: No Do you presently have visiting nurse or other home services: No Unable to assess alcohol history related to: Unable to respond Alcohol intake: never Patient Tobacco Use Status: Former Tobacco user Quit Date: 1970 Tobacco use type: Cigarette Years Smoked: 3 +/- service: Yes Meds Allergies Allergy/AdvReac Type Severity Reaction Status Date / Time No Known Allergies Allergy Verified 11/10/23 08:20 Home Medications Medication Instructions Recorded Confirmed Last Taken Type aspirin 81 mg tablet,delayed 81 mg PO DAILY 01/13/21 11/05/23 11/09/23 History release (Adult Low Dose Aspirin) atorvastatin 20 mg tablet 20 mg PO Q OTHER DAY 01/13/21 11/10/23 11/08/23 History losartan 100 mg tablet 100 mg PO BEDTIME 01/13/21 11/10/23 11/09/23 History metoprolol tartrate 25 mg tablet 12.5 mg PO BID 01/13/21 11/05/23 11/10/23 00:10 History omeprazole 40 mg capsule,delayed 40 mg PO BEDTIME 01/13/21 11/10/23 11/09/23 History release tramadol 50 mg tablet 50 mg PO BID PRN Pain 01/13/21 11/10/23 Unknown History acetaminophen 500 mg tablet 500 mg PO Q6H PRN Pain 11/03/23 11/10/23 Unknown History cholecalciferol (vitamin D3) 25 25 mcg PO DAILY 11/03/23 11/10/23 11/09/23 History mcg (1,000 unit) capsule glucosamine-chondroitin 500 mg-400 1 cap PO DAILY 11/03/23 11/10/23 11/09/23 History mg capsule magnesium oxide 500 mg tablet 500 mg PO DAILY 11/03/23 11/10/23 11/09/23 History mecobalamin (vitamin B12) 2,500 3,000 mcg PO DAILY 11/03/23 11/10/23 11/09/23 History mcg chewable tablet omega 3-zgm-jrp-fish oil 1,000 mg 1 cap PO DAILY 11/03/23 11/05/23 11/09/23 History (120 mg-180 mg) capsule (Fish Oil) amlodipine 5 mg tablet 5 mg PO BEDTIME 11/05/23 11/10/23 11/09/23 History Exam Height,Weight and Vital Signs: Height 5 ft 6 in Weight 88.451 kg Pertinent Lab Results Pertinent Lab Results: Laboratory Tests 10/13/23 10/21/23 09:20 09:40 WBC 5.9 Hgb 15.2 Hct 44.5 Plt Count 220 Sodium 138 Potassium 4.1 Chloride 108 Carbon Dioxide 22 BUN 14 Creatinine 0.70 Narrative Narrative: EKG 10/2023 Vent. Rate : 092 BPM Atrial Rate : 092 BPM P-R Int : 162 ms QRS Dur : 098 ms QT Int : 368 ms P-R-T Axes : 039 002 015 degrees QTc Int : 455 ms Sinus rhythm with occasional Premature ventricular complexes Inferior infarct , age undetermined Anteroseptal infarct , age undetermined Abnormal ECG When compared with ECG of 18-SEP-2021 11:50, Premature ventricular complexes are now Present Vent. rate has increased BY 33 BPM Anteroseptal infarct is now Present Inferior infarct is now Present QT has lengthened ECHO 2021 Conclusions: - Normal left ventricular size, thickness, systolic function, and wall motion. The visually estimated ejection fraction is between 55-60%. Diastolic function is normal for age. - Normal right ventricular cavity size and systolic function. - The left atrium is mildly dilated. The right atrium is mildly dilated. - There is mild dilatation of the sinuses of Valsalva measuring 3.69 cm and mild dilatation of the ascending aorta measuring 3.50 cm. Assessment and Plan Assessment Anesthesia Assessment: Chart Reviewed Documented by User: Luana Chatterjee MD 11/11/23 16:15 HPI - Anesthesia Eval Consult details Narrative: 73yo M s/p Laparoscopic Cholecystectomy 11/10/2023. With hematoma. For exploratory laparotomy and evacuation of hematoma. Cardiac cleared at intermediate (Tigertext sent in regards to new EKG changes 10/13/23. Awaiting response) [facility] Active Problems Active Problems: All Active Problems (Updated 11/11/23 @ 11:09 by Luana Chatterjee MD) Stable angina (Acute) Stented coronary artery (Acute) Abdominal pain (Acute) Fatigue (Acute) Coronary artery disease (Acute) Essential hypertension (Acute) Gallstones (Acute) 2 syncopal episodes yesterday in PACU. Admitted for observation. Still with pain today- CT-hematoma around liver Anemia Hgb/Hct 15.2/44.5(10/21/23) to 12.3/37(11/10/23) to 9.3/27.3(11/11/23) to 9.8/28.7 (11/11/23 post 1 unit PRBC) Past Medical History Medical History Hematoma GERD (gastroesophageal reflux disease) Elevated cholesterol Low back pain Depression CAD (coronary artery disease) Stable angina Gallstones Scoliosis Carpal tunnel syndrome C2 cervical fracture Arthritis Hypertension Family History Family History Father HTN (hypertension) Cardiac arrest Mother HTN (hypertension) Stroke Sister HTN (hypertension) Cancer Family history of problems with anesthesia: No Surgical History Surgical History S/P laparoscopic cholecystectomy Hx of carpal tunnel repair History of esophagogastroduodenoscopy (EGD) H/O colonoscopy History of cardiac cath History of Problems with Anesthesia: No Social History Social History Household Members: Spouse Household Members Other:: tereza Housing: House Are you a primary director day care center to a significant other at home: No Do you presently have visiting nurse or other home services: No Unable to assess alcohol history related to: Unable to respond Alcohol intake: never Patient Tobacco Use Status: Former Tobacco user Quit Date: 1970 Tobacco use type: Cigarette Years Smoked: 3 +/- service: Yes Meds Allergies Allergy/AdvReac Type Severity Reaction Status Date / Time No Known Allergies Allergy Verified 11/10/23 08:20 Home Medications Medication Instructions Recorded Confirmed Last Taken Type aspirin 81 mg tablet,delayed 81 mg PO DAILY 01/13/21 11/05/23 11/09/23 History release (Adult Low Dose Aspirin) atorvastatin 20 mg tablet 20 mg PO Q OTHER DAY 01/13/21 11/10/23 11/08/23 History losartan 100 mg tablet 100 mg PO BEDTIME 01/13/21 11/10/23 11/09/23 History metoprolol tartrate 25 mg tablet 12.5 mg PO BID 01/13/21 11/05/23 11/10/23 00:10 History omeprazole 40 mg capsule,delayed 40 mg PO BEDTIME 01/13/21 11/10/23 11/09/23 History release tramadol 50 mg tablet 50 mg PO BID PRN Pain 01/13/21 11/10/23 Unknown History acetaminophen 500 mg tablet 500 mg PO Q6H PRN Pain 11/03/23 11/10/23 Unknown History cholecalciferol (vitamin D3) 25 25 mcg PO DAILY 11/03/23 11/10/23 11/09/23 History mcg (1,000 unit) capsule glucosamine-chondroitin 500 mg-400 1 cap PO DAILY 11/03/23 11/10/23 11/09/23 History mg capsule magnesium oxide 500 mg tablet 500 mg PO DAILY 11/03/23 11/10/23 11/09/23 History mecobalamin (vitamin B12) 2,500 3,000 mcg PO DAILY 11/03/23 11/10/23 11/09/23 History mcg chewable tablet omega 1-jxy-slx-fish oil 1,000 mg 1 cap PO DAILY 11/03/23 11/05/23 11/09/23 History (120 mg-180 mg) capsule (Fish Oil) amlodipine 5 mg tablet 5 mg PO BEDTIME 11/05/23 11/10/23 11/09/23 History Exam Height,Weight and Vital Signs: Height 5 ft 6 in Weight 88.451 kg Vital Signs Temp Pulse Resp BP Pulse Ox O2 Del Method O2 Flow Rate 11/11/23 11:23 97.0 F 120 H 20 132/66 91 L Room Air 11/11/23 11:02 100.0 F 124 H Nasal Cannula 2 11/11/23 10:55 14 11/11/23 10:34 97.7 F 124 H 14 128/68 11/11/23 08:58 98.1 F 120 H 14 104/68 11/11/23 08:47 98.6 F 126 H 14 108/66 11/11/23 08:43 14 11/11/23 08:36 123 H 11/11/23 08:24 98.6 F 126 H 18 108/66 95 Nasal Cannula 2 11/11/23 05:47 98.0 F 111 H 25 H 108/63 98 Nasal Cannula 2 11/11/23 05:39 24 H 11/11/23 02:05 97.7 F 118 H 21 H 104/52 L 97 Nasal Cannula 2 11/11/23 00:22 106 H 20 99/50 L 95 Room Air 11/10/23 21:45 99.0 F 113 H 20 94/52 L 95 Nasal Cannula 2 11/10/23 21:07 111 H 20 108/60 97 Nasal Cannula 2 11/10/23 20:45 106 H 20 90/47 L 11/10/23 20:03 106 H 20 118/69 97 Nasal Cannula 2 11/10/23 18:56 98.2 F 103 H 30 H 132/71 98 Nasal Cannula 3 11/10/23 17:06 69 13 146/61 H 100 Nasal Cannula 3 11/10/23 17:00 71 15 142/62 H 100 Nasal Cannula 11/10/23 16:15 73 16 103/54 L 95 Nasal Cannula 2 11/10/23 16:00 76 16 105/53 L 95 Room Air 11/10/23 15:45 76 16 103/54 L 95 Room Air 11/10/23 15:20 75 16 117/69 95 Room Air 11/10/23 15:05 74 16 128/68 95 Nasal Cannula 2 11/10/23 14:55 70 16 136/69 95 Nasal Cannula 2 11/10/23 14:40 70 16 133/63 95 Nasal Cannula 2 11/10/23 14:25 67 16 135/59 L 92 Room Air 11/10/23 14:10 69 16 131/61 94 Room Air 2 11/10/23 13:55 68 16 137/60 98 Room Air 2 11/10/23 13:40 67 16 135/58 L 94 Room Air 11/10/23 13:10 59 20 106/55 L 95 Nasal Cannula with ETCO2 2 11/10/23 12:55 56 16 120/54 L 96 Room Air 3 11/10/23 12:40 97 F 65 16 132/51 L 96 Room Air 11/10/23 12:25 59 16 128/51 L 95 Room Air 11/10/23 12:10 58 16 93/45 L 96 Nasal Cannula 2 11/10/23 12:05 52 16 89/41 L 96 Nasal Cannula 2 11/10/23 12:00 52 16 108/42 L 96 Nasal Cannula 2 11/10/23 12:00 16 11/10/23 11:55 61 16 132/62 96 Nasal Cannula 2 11/10/23 11:40 67 16 146/80 H 96 Nasal Cannula 2 Airway Mallampati Class: III (H/o C2 cervical fracture) TM Dist: >3cm Neck ROM: Limited Loose/Missing/Broken Teeth: Yes (Some missing. Denies broken or loose teeth) Heart: RRR. Tachycardic Lungs: CTAB Assessment and Plan Assessment Anesthesia Assessment: Anesthesia Plan Discussed Final Anesthetic Review Family History of Problems with Anesthesia: No History of Problems with Anesthesia: No NPO: Yes ASA Class: IV and Emergency Final Preanesthetic Review: No Changes in Pt Med Stat, Meds/Allgs Chart Reviewed, Consent Obtained/Reviewed and Anes Risks/Benef Reviewed Patient Risk: High Procedure Risk: High Assessment/Block/Sedation in SS: Assess/Block/Sedation-SS Anesthetic Plan Anesthetic Plan: GA and Other (Arterial line) Disposition: Standard PACU, Inp. Admit - Standard Bed and Inp. Admit - ICU
[2023-11-10] VITALS (37 sets, daily range): BP systolic 89–190; BP diastolic 41–87; PULSE 52–113; RESP 13–30; TEMP 36.1–37.2; O2SAT 92–100; BMI 28.5
--- NOTE | ~2023-11-10 | XR_ITS ---
EXAMINATION: XR CHEST CLINICAL INFORMATION: Fever. COMPARISON: Chest radiograph 11/22/2023. TECHNIQUE: AP view of the chest was obtained. FINDINGS: Stable prominence of the cardiomediastinal silhouette. Low lung volumes with unchanged left greater than right bibasilar platelike opacities and left greater than right small pleural effusions. No new focal airspace densities. No pneumothorax. No acute osseous findings. XR/XR chest 1V IMPRESSION: No significant change when compared to 11/22/2023.
--- NOTE | ~2023-11-10 | US_ITS ---
EXAMINATION: US VENOUS ULTRASOUND WITH DOPPLER LOWER EXTREMITY, BILATERAL CLINICAL INFORMATION: Bilateral lower extremities COMPARISON: None available. TECHNIQUE: Ultrasound of the deep veins is performed from the hip to the calf with compression sonography and color and pulse Doppler assessment. Spectral analysis with color-flow imaging is performed. FINDINGS: RIGHT: There is evidence of DVT in the right leg with thrombus seen in the proximal to mid posterior tibial vein in the proximal to mid peroneal veins. Otherwise there is normal venous compression and respiratory variation with augmented flow in the common femoral vein, superficial femoral vein, profunda femoral vein and the popliteal vein. There is no significant popliteal fossa cyst. LEFT: There is DVT present with noncompressible thrombus seen in the left common femoral vein as well as the left great saphenous vein. The remainder of the left lower extremities demonstrates normal venous compression and respiratory variation with augmented flow. The visualized superficial femoral vein, profunda femoral vein, popliteal vein, and the trifurcation region shows no evidence of deep venous thrombosis. There is no significant popliteal fossa cyst. US/US venous duplex LE BI IMPRESSION: Bilateral DVT as described above.
--- NOTE | ~2023-11-10 | CT_ITS ---
EXAMINATION: CT ANGIOGRAM OF THE CHEST WITH AND WITHOUT CONTRAST (CT PULMONARY ANGIOGRAM FOR PE) CLINICAL INFORMATION: Reason for Exam DVTs, SOB COMPARISON: 11/15/2023 TECHNIQUE: Prior to contrast administration, noncontrast localization images were obtained. Subsequently, multidetector volumetric imaging was performed from the thoracic inlet to below the diaphragms following the administration of 65 mL Omnipaque 350 intravenous contrast. No contrast reaction reported Sagittal, coronal, and MIP oblique sagittal reformatted images were obtained on the CT workstation, uploaded to PACS, and reviewed. This CT examination was performed using dose optimization techniques as appropriate, variously including the following: *Automated exposure control *Adjustment of mA and/or kV according to patient size (this includes techniques or standardized protocols for targeted exams where dose is matched to indication/reason for exam; i.e. extremities or head) *Use of iterative reconstruction technique Total exam dose-length product 392 mGy-cm FINDINGS: QUALITY OF STUDY/CONTRAST BOLUS: Suboptimal. PULMONARY ARTERIES: Despite suboptimal contrast bolus timing there are pulmonary arterial filling defects involving all 5 lobes from lobar 2 subsegmental branches. Moderate clot burden. THORACIC AORTA: No aneurysm. LUN.1 cm left upper lobe groundglass nodule on image 16 of series 6. 4 mm solid right lower lobe nodule on image 24 series 6. Bibasilar consolidation/compressive atelectasis. PLEURA: Moderate right pleural effusion. Small left pleural effusion. MEDIASTINUM: The heart is enlarged. No pericardial effusion. No bulky hilar or mediastinal lymphadenopathy. No evidence of septal bowing or right heart strain. CORONARY ARTERY CALCIFICATION: Moderate. CHEST WALL/AXILLA: Gynecomastia. No axillary lymphadenopathy. OSSEOUS STRUCTURES: No destructive bone lesions. UPPER ABDOMEN: Ring-enhancing lesion measuring 1.6 x 1.5 cm in the right hepatic lobe. Partial visualization of subcapsular hematoma with indwelling drainage catheter. Partially visualized surgical drain in the central abdomen. Small hiatal hernia. Positive reflux of contrast into the hepatic veins to suggest elevated right heart pressures. CT/CT angio chest PE protocol IMPRESSION: Suboptimal contrast bolus timing. Despite this limitation, there are identified multiple bilateral pulmonary arterial filling defects involving the lobar, segmental and subsegmental branches. Moderate clot burden. No evidence of right heart strain. Moderate right pleural effusion. Small left pleural effusion. Bibasilar consolidation/compressive atelectasis. VTE: positive Findings were reviewed and discussed with the provider Mark Wright MD at 4:22 PM on 11/26/2023.
--- NOTE | ~2023-11-10 | CT_ITS ---
EXAMINATION: CTA CHEST PE STUDY CLINICAL INFORMATION: tachy, hypoxic, post op. r/o pe COMPARISON: 11/13/2023 chest x-ray. 11/11/2023 CT scan of the abdomen TECHNIQUE: Prior to contrast administration, noncontrast localization images were obtained. After the administration of 65 mL of Omnipaque nonionic IV contrast, contiguous thin slice helical images were obtained through the thorax. Reformatted MIP images in the coronal and sagittal planes were obtained at the acquisition workstation. This CT examination was performed using dose optimization techniques as appropriate, variously including the following: *Automated exposure control *Adjustment of mA and/or kV according to patient size (this includes techniques or standardized protocols for targeted exams where dose is matched to indication/reason for exam; i.e. extremities or head) *Use of iterative reconstruction technique DLP: 359 mGy-cm. FINDINGS: The bolus timing on this study was acceptable for visualization of the pulmonary arterial tree. There are no intraluminal pulmonary arterial filling defects present to suggest pulmonary embolism. Dependent airspace changes likely reflecting a component of atelectasis from small bilateral pleural effusions. No abnormal pulmonary nodules or masses are appreciated. No significant hilar or mediastinal adenopathy. There is no evidence of pneumothorax. The heart is normal in size. No evidence of ventricular septal bowing or right heart strain. Vascular calcification within the aorta and coronary vessels. Small hiatal hernia. There is no pericardial effusion or pericardial thickening. Limited evaluation of the upper abdominal viscera postoperative changes seen in the upper abdomen. Again there is a complex hyperdense hematoma surrounding the liver. Surgical drain is seen in the anterior abdomen. 1.3 cm lesion near the junctions of segments 5 and 8 of uncertain etiology. Examination is not tailored to evaluate the liver. This is not readily apparent on the older CT scan. CT/CT angio chest PE protocol IMPRESSION: 1. No evidence for pulmonary emboli. 2. Small bilateral pleural effusions with associated dependent airspace changes likely reflecting component of atelectasis. 3. Postoperative changes in the upper abdomen with evolving complex hyperdense hematoma surrounding the liver as noted on the prior study. 4. There is a 1.3 cm lesion suggested near the junctions of segments 5 and 8 of uncertain etiology. This is not readily apparent on the older 10/13/2023 CT scan. VTE: Negative.
--- NOTE | ~2023-11-10 | CT_ITS ---
Concern for infected perihepatic hematoma. Surgical service requests percutaneous drainage PROCEDURES: 1. Limited preprocedure CT of the abdomen. Permanent images saved in PACS. 2. Placement of a 14 Surinamese all-purpose drainage catheter into the perihepatic hematoma 3. Limited post procedure CT of the abdomen. Permanent images saved in PACS. CLINICIANS: Pedro Chairez PA-C Preprocedural imaging reviewed with Dr. Santiago MEDICATIONS: -Fentanyl 50 mcg, and lidocaine 1% 10 mL SQ -Antibiotics: None -For additional details, please see nursing flowsheet. COMPLICATIONS: None ESTIMATED BLOOD LOSS: < 5 ml CONTRAST: None SPECIMENS: A sample of fluid was sent for culture. PROCEDURE NOTE: The procedure, risks, benefits, and alternatives were carefully explained to the patient and written informed consent was obtained. The patient was placed supine on the CT table. A timeout was performed. A limited CT of the abdomen was performed to localize perihepatic fluid collection and choose appropriate needle entry and trajectory. The patient was prepped and draped in usual sterile fashion. The skin, subcutaneous tissues, and periosteum were anesthetized with lidocaine. Under CT guidance, 5 Surinamese Yueh catheter was advanced into the perihepatic fluid collection. Dark, nonclotting blood tinged fluid was immediately aspirated. A 0.038 in Amplatz wire was inserted through the catheter and coiled into the fluid collection. The tract was serially dilated. Over the wire, a 14 Surinamese all-purpose drainage catheter was advanced and coiled into the perihepatic collection. A total of 600 mL of dark, nonclotting blood tinged fluid was aspirated. A sample was sent for culture. The drainage catheter was connected to a DONATO bulb. The catheter was secured to the skin with 2-0 nylon suture. A dry dressing was applied and secured with Tegaderm. There were no immediate complications. The patient was stable after the procedure and was transferred back to surgical floor. The procedure was done with a dedicated nurse for monitoring of vital signs. CT/CT guided drainage Impression: CT-guided drainage of perihepatic hematoma. This procedure was performed by Pedro Chairez PA-C and supervised by Dr. Santiago.
--- NOTE | ~2023-11-10 | CT_ITS ---
EXAMINATION: CT ABDOMEN AND PELVIS WITHOUT CONTRAST CLINICAL INFORMATION: Abdominal pain. Sepsis. COMPARISON: Previous CT of the abdomen and pelvis November 11 and chest CTA 11/15/2023 TECHNIQUE: Multidetector volumetric imaging was performed from the superior aspect of the liver through the pubic symphysis. Sagittal and coronal reformatted images were obtained on the technologist's workstation. This CT examination was performed using dose optimization techniques as appropriate, variously including the following: *Automated exposure control *Adjustment of mA and/or kV according to patient size (this includes techniques or standardized protocols for targeted exams where dose is matched to indication/reason for exam; i.e. extremities or head) *Use of iterative reconstruction technique DLP: 593 mGy-cm FINDINGS: LUNG BASES: Bilateral lower lobe atelectasis/consolidation. This minimally increased on the right and significantly the left compared to 11/11/2023 exam. There are small bilateral pleural effusions. There is bilateral gynecomastia. LIVER, GALLBLADDER, AND BILIARY TREE: The liver is normal in size, shape, and attenuation. There is a round low-attenuation 1.3 cm lesion in the liver near the junction of the anterior segment of the right lobe and medial segment of the left lobe axial image 22 series ring-enhancing lesion seen on chest CTA November slightly increased in size from 8 mm November 2023 exam. The gallbladder has been removed.. There is a large hematoma adjacent to the right lobe of the liver. This is Heterogeneous in attenuation but overall decreased in size and attenuation from 11/11/2023 exam. There is a surgical drain inferior to the left lobe of the liver. There is no biliary duct dilatation. PANCREAS: Unremarkable. SPLEEN: Unremarkable. ADRENAL GLANDS: Unremarkable. KIDNEYS AND URETERS: The kidneys are normal in size, shape, and attenuation. No hydronephrosis, hydroureter, or calculi seen. No perinephric stranding. BLADDER: Air-fluid level in the bladder catheter placement. GASTROINTESTINAL TRACT: Mild diverticulosis of colon. The small and large bowel are otherwise unremarkable. The appendix is not seen. Small hiatal hernia. ABDOMINAL WALL: No significant hernia is appreciated. LYMPH NODES: Small upper abdominal and periportal lymph nodes. Small nonspecific peritoneal densities axial image 62 and 64. This may be related to recent surgery. VASCULAR: Unremarkable. PELVIC VISCERA: Prostate gland is enlarged. Small amount of ascites in the pelvis OSSEOUS STRUCTURES: Degenerative changes and scoliosis of the spine. CT/CT abdomen pelvis wo IV con IMPRESSION: Interval decrease in size and density of the large hematoma adjacent to the right lobe of the liver. Stable 1.3 cm low-attenuation liver lesion from chest CTA 11/15/2023 and increased in size from 11/11/[address] Liver abscess should be considered. Increasing bilateral lower lobe atelectasis/consolidation and small pleural effusions, particularly on the left. Fleischner guidelines were followed.
[2023-11-10] MEDS: Lactated Ringers 1,000 ML 100 ML IVCONT (08:22)
--- NOTE | 2023-11-10 08:59 | HO.ANESPROP2 ---
[facility] Active Problems Active Problems: All Active Problems (Updated 11/05/23 @ 09:55 by Romi Grant RN) Stable angina (Acute) Stented coronary artery (Acute) Abdominal pain (Acute) Fatigue (Acute) Coronary artery disease (Acute) Essential hypertension (Acute) Gallstones (Acute) Past Medical History Medical History GERD (gastroesophageal reflux disease) Elevated cholesterol Low back pain Depression CAD (coronary artery disease) Stable angina Gallstones Scoliosis Carpal tunnel syndrome C2 cervical fracture Arthritis Hypertension Family History Family History Father HTN (hypertension) Cardiac arrest Mother HTN (hypertension) Stroke Sister HTN (hypertension) Cancer Family history of problems with anesthesia: No Surgical History Surgical History Hx of carpal tunnel repair History of esophagogastroduodenoscopy (EGD) H/O colonoscopy History of cardiac cath History of Problems with Anesthesia: No Social History Social History Are you a primary adult caregiver to a significant other at home: No Do you presently have visiting nurse or other home services: No Alcohol intake: never Patient Tobacco Use Status: Former Tobacco user Quit Date: 1970 Tobacco use type: Cigarette Years Smoked: 3 +/- Use of substances other than those prescribed or required for medical reasons: No Have you been hit, kicked, punched, or otherwise hurt by someone within the past year? If so, by whom?: No Are you DNR?: Yes Advance Directives Information Provided: Yes (as above noted-will bring copies DOS) Advance Directives on File: No Recently lost weight without trying: No Eating poorly because of decreased appetite: No Nutrition Risks: No Nutritional Risk Poor oral hygiene: No (implants & crowns) Meds Allergies Allergy/AdvReac Type Severity Reaction Status Date / Time No Known Allergies Allergy Verified 11/10/23 08:20 Active Medications: Current Medications Fentanyl (Fentanyl Citrate/Pf 100 Mcg/2 Ml Vial) 25 mcg IVPUSH Q5M PRN; Protocol PRN Reason: Pain, Moderate(Pain Scale 4-6) Lactated Ringer's (Lr) 1,000 mls @ 100 mls/hr IVCONT .Q10H LEYLA Last Admin: 11/10/23 08:22 Dose: 100 mls/hr Ondansetron HCl (Ondansetron Hcl 4 Mg/2 Ml Vial) 4 mg IVPUSH ONCE PRN PRN Reason: Nausea and Vomiting Home Medications Medication Instructions Recorded Confirmed Last Taken Type aspirin 81 mg tablet,delayed 81 mg PO DAILY 01/13/21 11/05/23 11/09/23 History release (Adult Low Dose Aspirin) atorvastatin 20 mg tablet 20 mg PO BEDTIME 01/13/21 11/05/23 Unknown History losartan 100 mg tablet 100 mg PO BEDTIME 01/13/21 11/05/23 Unknown History metoprolol tartrate 25 mg tablet 12.5 mg PO BID 01/13/21 11/05/23 11/10/23 00:10 History omeprazole 40 mg capsule,delayed 40 mg PO BEDTIME 01/13/21 11/05/23 Unknown History release tramadol 50 mg tablet 50 mg PO TID PRN Pain 01/13/21 11/05/23 Unknown History acetaminophen 500 mg tablet 500 mg PO Q6H PRN Pain 11/03/23 11/05/23 Unknown History cholecalciferol (vitamin D3) 25 25 mcg PO DAILY 11/03/23 11/05/23 Unknown History mcg (1,000 unit) capsule glucosamine-chondroitin 500 mg-400 1 cap PO DAILY 11/03/23 11/05/23 Unknown History mg capsule magnesium oxide 500 mg tablet 500 mg PO DAILY 11/03/23 11/05/23 Unknown History mecobalamin (vitamin B12) 2,500 3,000 mcg PO DAILY 11/03/23 11/05/23 Unknown History mcg chewable tablet omega 3-gos-lde-fish oil 1,000 mg 1 cap PO DAILY 11/03/23 11/05/23 11/09/23 History (120 mg-180 mg) capsule (Fish Oil) amlodipine 5 mg tablet 5 mg PO BEDTIME 11/05/23 11/05/23 Unknown History Exam Height,Weight and Vital Signs: Height 5 ft 6 in Weight 88.451 kg Last Vital Signs Temp 97.9 F 11/10/23 08:17 Pulse 60 11/10/23 08:17 Resp 16 11/10/23 08:17 BP 157/77 H 11/10/23 08:17 Pulse Ox 96 11/10/23 08:17 O2 Del Method Room Air 11/10/23 08:17 Airway Mallampati Class: II TM Dist: >3cm Neck ROM: Full Loose/Missing/Broken Teeth: No Heart: rrr Lungs: clear Assessment and Plan Final Anesthetic Review Family History of Problems with Anesthesia: No History of Problems with Anesthesia: No NPO: Yes ASA Class: III Final Preanesthetic Review: No Changes in Pt Med Stat, Consent Obtained/Reviewed and Anes Risks/Benef Reviewed Patient Risk: Intermediate Procedure Risk: Intermediate Anesthetic Plan Anesthetic Plan: GA Disposition: Standard PACU
--- NOTE | 2023-11-10 09:10 | MHC.SHP ---
Pre-Procedural Eval Section A Date of Service: 11/10/23 The patient is an INPATIENT: No Changes since office visit: No Cold of Flu in the past 2 weeks, No New Medical Problems, No Changes in Medication and No Patient answered all questions The History & Physical has been completed within 30 days and I have reviewed it.: Yes Section B Chief Complaint: Calculus of gallbladder without cholecystitis with Allergies: Allergies Allergy/AdvReac Type Severity Reaction Status Date / Time No Known Allergies Allergy Verified 11/10/23 08:20 Plan I have reviewed the history and physical and performed a pertinent physical examination on my patient. No changes have occurred unless specified. Time Spent With Patient Time: Total time managing care of this patient today ____ minutes.
--- NOTE | 2023-11-10 10:42 | P.OP_ITS ---
Operative Note Operative Note Date of Service: 11/10/23 Narrative: Preop diagnosis: Gallstones, with symptoms Postop diagnosis: The same, with chronic cholecystitis Procedure: Laparoscopic cholecystectomy Surgeon: Ismael Dutta MD The patient is a 73-year-old male with recurrent right upper quadrant pain with note of gallstones on imaging studies. He had been to the ER because of this and continues to have recurrent symptoms. He wanted to proceed with cholecystectomy. He understood the technique of laparoscopic cholecystectomy and was aware of the risks, benefits, and alternatives. He was brought to the operating room. He was placed supine under general anesthesia via endotracheal tube. The abdomen was prepped and draped in the usual sterile fashion. A surgical time-out was done. The patient received Cefotan 2 g IV preoperatively. A small supraumbilical incision was made using blade 15. This was carried down through the full-thickness of the skin subcutaneous fat down to the fascia. The fascia was incised. The peritoneum was entered. Through this incision is on port was introduced. Pneumoperitoneum was introduced to a pressure of 15 mm of mercury. From here on the rest of procedure was done under vision with the laparoscopic. With laparoscopic visualization I proceeded to insert a 5/12 the port via small stab incision. Two 5 mm ports introduced small tissue below the subcostal margin along the anterior axillary line and the midclavicular line. Graspers were placed through this working ports. The patient was placed in head-up and [id number] position The gallbladder was seen. This was distended and the GB wall was significantly thickened. This was not erythematous. There was note of omentum adherent on the anterior wall. I was able to apply grasper on the fundus and this was used to retract the gallbladder cephalad. By doing so, so I was able to then gently dissect the adhesions off of the anterior wall. We had to spend some time before able to achieve good exposure. I was then able to eventually apply a g rasper towards the pouch of the gallbladder. This was used to retract the gallbladder laterally. The gallbladder was therefore being retracted in a cephalad and lateral fashion to put the area of the cystic duct on stretch. We proceeded carefully and gently dissect the neck of the gallbladder using the [place] dissector as there was a lot of thickening and fibrotic tissue surrounding this. We proceeded this slowly until I was able to visualize the cystic duct. I continued to dissect the cystic duct to define its confluence with the neck of the gallbladder. By doing so was able to achieve a critical view of the hepatocystic triangle. The cystic artery was also seen. With confluence of the cystic duct with the neck of the gallbladder well- defined, I proceeded to apply clips on the cystic duct, with 2 clips applied distally. The cystic duct was transected between clips with Endo scissors. I then proceeded to carefully define the cystic artery. Clips were applied and this was injected between clips and the scissors. Graft there were other smaller and finer adhesions that or in the area of the hilum so we had to carefully define this and apply clips. These were transected with clips with Endo scissors. I then proceeded to use electrocautery spatulato incise the peritoneum of the gallbladder wall and proceeded to carefully define a plane of dissection between the gallbladder wall and liver bed. This plane was not well- defined because of thickening consistent with chronic cholecystitis. I proceeded to carefully separate the gallbladder from the liver bed using a combination of electrocautery as well as blunt dissection with the tip until was able to completely separate the gallbladder. There was note of a tear on the gallbladder wall from the retraction and some spillage of bile from the gallbladder. the gallbladder was retrieved through an endobag through the umbilical incision. I copies irrigated the area of the dissection. Observe for mass stasis. There was note of some oozing from the liver bed which I had to cauterize. I also placed Surgicel on the area I then observed all 4 quadrants and there was no evidence of any bleeding or bowel injury or bile leak I then re-examined the subhepatic space and observe for about 2 minutes. There was no significant bleeding. I therefore desufflated through the port sites and removed all ports under visualization with the laparoscopic The umbilical port was therefore removed last. The fascia of the umbilical incision was closed with figure-eight Polysorb 0 stitch. Skin closure was achieved on all incisions using Polysorb 4-0 subcuticular running sutures Steri-Strips and dressings were applied. All incisions were infiltrated with Marcaine 0.5% for postop analgesia. The patient tolerated procedure well. There were made complications. Initial final counts of sponges and instruments were correct. Estimated blood loss about 50 cc e name of the
[2023-11-10] MEDS: Lactated Ringers 1,000 ML 1000 ML IVCONT (16:45)
--- NOTE | 2023-11-10 16:54 | PM.EVENT ---
Event Note Date of Service: 11/10/23 Event Note: Paged overhead stat to see patient in PACU who had a vagal episode while being given instructions for discharge and seated. Patient had been monitored in PACU since 10:45am when he arrived in PACU s/p Laparoscopic cholecystectomy. Patient has had a prior vagal episode in PACU and was kept for an extended period. When seen earlier, patient was sleepy but vital signs were stable. O/A in PACU, patient was lying in bed- AAOx3. VSS but patient had needed a sternal rub to arouse immediately after vagal episode. Patient has received 2.5 L of IVF. Bladder scan shows 325ml. Last dose of narcotics was 4 hours ago. Patient is asymptomatic now but given his cardiac history, he was transferred to the ER for further evaluation. Dr Dutta aware. Time Spent With Patient Time: Total time managing care of this patient today ____ minutes.
--- NOTE | 2023-11-10 17:01 | PC.NURSE ---
Patient up to chair and thru process from bed to chair orthostatic negative as assessed. Patient in chair and given 15 minutes to ensure stable and texted md. Chatterjee and .Thania Dutta patient condition and patient stable and while beginning discharge paperwork with patient he had another event where in which case the patient slumped over...stopped breathing...and did not respond to loud voice, and took sternal rub to have slight response where he opened his eyes to voice. response team called and staff lifted patient back to bed and upon laying flat patent awoke bp assessed back to baseline and patient transitioned to e.d. report provided to team ( did see patient for a few minutes prior to admission to e.d.)
--- NOTE | 2023-11-10 17:04 | PM.HPGS ---
History of Present Illness History of Present Illness Date of Service: 11/15/23 Chief complaint: Syncope,s/p lap roosevelt Narrative: Darrick Ty is a 73 year old male who had undergone laparoscopic cholecystectomy this morning for symptomatic gallstones. He was in the ED last Oct 13 for RUQ pin. I had seen him in the office last week. He says he continued to have had episodes at home and had wanted to proceed with cholecystectomy as early as he could in view of persistent symptoms. He tolerated the procedure well this morning and was being prepared for discharge but had a syncopal episode in PACU. He was reported to have a vagal episode earlier in the PACU as well. According the nursing staff, he seemed to be unresponsive for a few seconds. He was also described to be diaphroretic at that time. He does have a history of CAD and had stenting in the past. He was therefore brought to the ED to be admitted. As per PACU notes, his vital signs have been stable throughout. According to the PACU nurse, there has been no change in his abdl exam. According to the , he has had frequent periods of near syncope at home for several months now. He also has a history of Gilbert's syndrome of the liver as per his primary care physician Dr. Mullen. FORMERLY [facility], [facility] Past Medical History Medical History (Updated 11/15/23 @ 14:28 by Ismael Dutta MD) Pavo disease Hematoma GERD (gastroesophageal reflux disease) Elevated cholesterol Low back pain Depression CAD (coronary artery disease) Stable angina Gallstones Scoliosis Carpal tunnel syndrome C2 cervical fracture Arthritis Hypertension Family History Family History Father HTN (hypertension) Cardiac arrest Mother HTN (hypertension) Stroke Sister HTN (hypertension) Cancer Surgical History Surgical History S/P laparoscopic cholecystectomy Hx of carpal tunnel repair History of esophagogastroduodenoscopy (EGD) H/O colonoscopy History of cardiac cath Social History Social History Household Members: Spouse Household Members Other:: tereza Housing: House Are you a primary respite care provider to a significant other at home: No Do you presently have visiting nurse or other home services: No Unable to assess alcohol history related to: Unable to respond Alcohol intake: never Patient Tobacco Use Status: Former Tobacco user Quit Date: 1970 Tobacco use type: Cigarette Years Smoked: 3 +/- service: Yes Meds Allergies Allergy/AdvReac Type Severity Reaction Status Date / Time No Known Allergies Allergy Verified 11/10/23 08:20 Active Medications: Current Medications Hydromorphone HCl (Hydromorphone Hcl 0.5 Mg/0.5 Ml Syringe) 0.5 mg IVPUSH Q10M PRN; Protocol PRN Reason: Pain, Moderate(Pain Scale 4-6) Last Admin: 11/10/23 12:00 Dose: 0.5 mg Lactated Ringer's (Lr) 1,000 mls @ 100 mls/hr IVCONT .Q10H LEYLA Last Infusion: 11/10/23 11:23 Dose: Infused Home Medications Medication Instructions Recorded Confirmed Last Taken Type aspirin 81 mg tablet,delayed 81 mg PO DAILY 01/13/21 11/05/23 11/09/23 History release (Adult Low Dose Aspirin) atorvastatin 20 mg tablet 20 mg PO Q OTHER DAY 01/13/21 11/10/23 11/08/23 History losartan 100 mg tablet 100 mg PO BEDTIME 01/13/21 11/10/23 11/09/23 History metoprolol tartrate 25 mg tablet 12.5 mg PO BID 01/13/21 11/05/23 11/10/23 00:10 History omeprazole 40 mg capsule,delayed 40 mg PO BEDTIME 01/13/21 11/10/23 11/09/23 History release tramadol 50 mg tablet 50 mg PO BID PRN Pain 01/13/21 11/10/23 Unknown History acetaminophen 500 mg tablet 500 mg PO Q6H PRN Pain 11/03/23 11/10/23 Unknown History cholecalciferol (vitamin D3) 25 25 mcg PO DAILY 11/03/23 11/10/23 11/09/23 History mcg (1,000 unit) capsule glucosamine-chondroitin 500 mg-400 1 cap PO DAILY 11/03/23 11/10/23 11/09/23 History mg capsule magnesium oxide 500 mg tablet 500 mg PO DAILY 11/03/23 11/10/23 11/09/23 History mecobalamin (vitamin B12) 2,500 3,000 mcg PO DAILY 11/03/23 11/10/23 11/09/23 History mcg chewable tablet omega 7-kah-gdw-fish oil 1,000 mg 1 cap PO DAILY 11/03/23 11/05/23 11/09/23 History (120 mg-180 mg) capsule (Fish Oil) amlodipine 5 mg tablet 5 mg PO BEDTIME 11/05/23 11/10/23 11/09/23 History Physical Exam Vital Signs: Vital Signs: Last Vital Signs Temp 97 F 11/10/23 12:40 Pulse 73 11/10/23 16:15 Resp 16 11/10/23 16:15 BP 103/54 L 11/10/23 16:15 Pulse Ox 95 11/10/23 16:15 O2 Del Method Nasal Cannula 11/10/23 16:15 O2 Flow Rate 2 11/10/23 16:15 BMI result Body Mass Index 31.5 Const: Other: answers questions, oriented x 3 Resp: Effort & Inspection: normal respiratory effort Cardio: Rate: regular rate Rhythm: regular rhythm GI: Other: dressings dry Palpation (GI): Soft to palpation Assessment and Plan (1) S/P laparoscopic cholecystectomy: Status: Acute He had a syncopal episode in the PACU. He will be admitted for close monitoring as he has a hx of CAD and stenting. His vital signs have remained stable through the postop period. His Hg has drifted some although he did a get a lot of IVF in PACU and here in the ED. Postop bleeding is a consideration so his hemoglobin will be followed as well. I will consult the Hospitalist as well. I have updated his . Quality Stroke Does the patient have a stroke diagnosis?: No VTE Prior VTE?: No VTE Risk Level:: Medical - moderate - high VTE Device Contraindication: N/A - Device Ordered VTE Drug Contraindication: Treatment Not Indicated (Contraindicated in view of possible bleeding) Procedures Date of Service Date of Service: 11/15/23
--- NOTE | 2023-11-10 17:13 | ED.GENADULT ---
HPI - General Adult General Chief complaint: General Medical History of Present Illness HPI narrative: Patient is 73 years old with a history of coronary artery disease. Status post lap choly this morning. Patient was in the recovery room. Attempted to discharge patient twice unfortunately patient got very lethargic had a syncopal episode twice. Patient was sent down to the ED for further evaluation. He denies having any chest pain. Feels some distention in the abdomen. Related Data Home Medications Medication Instructions Recorded Confirmed aspirin 81 mg tablet,delayed 81 mg PO DAILY 01/13/21 11/05/23 release (Adult Low Dose Aspirin) atorvastatin 20 mg tablet 20 mg PO Q OTHER DAY 01/13/21 11/10/23 losartan 100 mg tablet 100 mg PO BEDTIME 01/13/21 11/10/23 metoprolol tartrate 25 mg tablet 12.5 mg PO BID 01/13/21 11/05/23 omeprazole 40 mg capsule,delayed 40 mg PO BEDTIME 01/13/21 11/10/23 release tramadol 50 mg tablet 50 mg PO BID PRN Pain 01/13/21 11/10/23 acetaminophen 500 mg tablet 500 mg PO Q6H PRN Pain 11/03/23 11/10/23 cholecalciferol (vitamin D3) 25 25 mcg PO DAILY 11/03/23 11/10/23 mcg (1,000 unit) capsule glucosamine-chondroitin 500 mg-400 1 cap PO DAILY 11/03/23 11/10/23 mg capsule magnesium oxide 500 mg tablet 500 mg PO DAILY 11/03/23 11/10/23 mecobalamin (vitamin B12) 2,500 3,000 mcg PO DAILY 11/03/23 11/10/23 mcg chewable tablet omega 3-mbn-rlv-fish oil 1,000 mg 1 cap PO DAILY 11/03/23 11/05/23 (120 mg-180 mg) capsule (Fish Oil) amlodipine 5 mg tablet 5 mg PO BEDTIME 11/05/23 11/10/23 Previous Rx's Medication Instructions Recorded oxycodone 5 mg tablet 5 mg PO Q4H PRN pain #25 tabs 11/10/23 Allergies Allergy/AdvReac Type Severity Reaction Status Date / Time No Known Allergies Allergy Verified 11/10/23 08:20 Review of Systems Review of Systems: No fever no chills. Positive abdominal distention. Positive syncopal episode x2 PMFSH Past Medical History Onset Date is defined in the Problem List Problems that require an onset date and time if occurred within 24 hrs of arrival to the ED Aortic Dissection and Rupture; Neurologic impairment; Cardiopulmonary Arrest; Endotracheal Intubation; Insertion or Replacement of Mechanical Circulatory Assist Device Medical History GERD (gastroesophageal reflux disease) Elevated cholesterol Low back pain Depression CAD (coronary artery disease) Stable angina Gallstones Scoliosis Carpal tunnel syndrome C2 cervical fracture Arthritis Hypertension Surgical History S/P laparoscopic cholecystectomy Hx of carpal tunnel repair History of esophagogastroduodenoscopy (EGD) H/O colonoscopy History of cardiac cath Family History Family History Father HTN (hypertension) Cardiac arrest Mother HTN (hypertension) Stroke Sister HTN (hypertension) Cancer Social History Social History Are you a primary administrator health care facility to a significant other at home: No Do you presently have visiting nurse or other home services: No Alcohol intake: never Patient Tobacco Use Status: Former Tobacco user Quit Date: 1970 Tobacco use type: Cigarette Years Smoked: 3 +/- Smoked in Last 30 Days: No Use of substances other than those prescribed or required for medical reasons: No Have you been hit, kicked, punched, or otherwise hurt by someone within the past year? If so, by whom?: No Are you DNR?: Yes Advance Directives Information Provided: Yes (as above noted-will bring copies DOS) Advance Directives on File: No Recently lost weight without trying: No Eating poorly because of decreased appetite: No Nutrition Risks: No Nutritional Risk Poor oral hygiene: No (implants & crowns) Physical Exam ED Vital Signs: Vital Signs - 24 hr 11/10/23 08:17 11/10/23 10:46 11/10/23 10:50 Temperature 97.9 F 97 F Pulse Rate 60 71 62 Respiratory Rate 16 18 16 Blood Pressure 157/77 H 165/85 H 184/83 H Pulse Oximetry 96 98 96 Oxygen Delivery Method Room Air Simple Mask Nasal Cannula Oxygen Flow Rate 4 2 11/10/23 10:50 11/10/23 10:55 11/10/23 11:00 Temperature Pulse Rate 62 63 Respiratory Rate 18 18 18 Blood Pressure 182/81 H 181/70 H Pulse Oximetry 96 96 Oxygen Delivery Method Nasal Cannula Nasal Cannula Oxygen Flow Rate 2 2 11/10/23 11:00 11/10/23 11:05 11/10/23 11:05 Temperature Pulse Rate 61 67 Respiratory Rate 18 16 16 Blood Pressure 182/71 H 190/72 H Pulse Oximetry 96 96 Oxygen Delivery Method Nasal Cannula Nasal Cannula Oxygen Flow Rate 2 2 11/10/23 11:10 11/10/23 11:10 11/10/23 11:15 Temperature Pulse Rate 71 Respiratory Rate 16 18 16 Blood Pressure 173/70 H Pulse Oximetry 96 Oxygen Delivery Method Nasal Cannula Oxygen Flow Rate 2 11/10/23 11:15 11/10/23 11:20 11/10/23 11:25 Temperature Pulse Rate 69 80 72 Respiratory Rate 16 16 16 Blood Pressure 154/83 H 163/87 H 154/83 H Pulse Oximetry 96 96 96 Oxygen Delivery Method Nasal Cannula Nasal Cannula Nasal Cannula Oxygen Flow Rate 2 2 2 11/10/23 11:40 11/10/23 11:55 11/10/23 12:00 Temperature Pulse Rate 67 61 Respiratory Rate 16 16 16 Blood Pressure 146/80 H 132/62 Pulse Oximetry 96 96 Oxygen Delivery Method Nasal Cannula Nasal Cannula Oxygen Flow Rate 2 2 11/10/23 12:00 11/10/23 12:05 11/10/23 12:10 Temperature Pulse Rate 52 52 58 Respiratory Rate 16 16 16 Blood Pressure 108/42 L 89/41 L 93/45 L Pulse Oximetry 96 96 96 Oxygen Delivery Method Nasal Cannula Nasal Cannula Nasal Cannula Oxygen Flow Rate 2 2 2 11/10/23 12:25 11/10/23 12:40 11/10/23 12:55 Temperature 97 F Pulse Rate 59 65 56 Respiratory Rate 16 16 16 Blood Pressure 128/51 L 132/51 L 120/54 L Pulse Oximetry 95 96 96 Oxygen Delivery Method Room Air Room Air Room Air Oxygen Flow Rate 3 11/10/23 13:10 11/10/23 13:40 11/10/23 13:55 Temperature Pulse Rate 59 67 68 Respiratory Rate 20 16 16 Blood Pressure 106/55 L 135/58 L 137/60 Pulse Oximetry 95 94 98 Oxygen Delivery Method Nasal Cannula with ETCO2 Room Air Room Air Oxygen Flow Rate 2 2 11/10/23 14:10 11/10/23 14:25 11/10/23 14:40 Temperature Pulse Rate 69 67 70 Respiratory Rate 16 16 16 Blood Pressure 131/61 135/59 L 133/63 Pulse Oximetry 94 92 95 Oxygen Delivery Method Room Air Room Air Nasal Cannula Oxygen Flow Rate 2 2 11/10/23 14:55 11/10/23 15:05 11/10/23 15:20 Temperature Pulse Rate 70 74 75 Respiratory Rate 16 16 16 Blood Pressure 136/69 128/68 117/69 Pulse Oximetry 95 95 95 Oxygen Delivery Method Nasal Cannula Nasal Cannula Room Air Oxygen Flow Rate 2 2 11/10/23 15:45 11/10/23 16:00 11/10/23 16:15 Temperature Pulse Rate 76 76 73 Respiratory Rate 16 16 16 Blood Pressure 103/54 L 105/53 L 103/54 L Pulse Oximetry 95 95 95 Oxygen Delivery Method Room Air Room Air Nasal Cannula Oxygen Flow Rate 2 11/10/23 17:00 11/10/23 17:06 Temperature Pulse Rate 71 69 Respiratory Rate 15 13 Blood Pressure 142/62 H 146/61 H Pulse Oximetry 100 100 Oxygen Delivery Method Nasal Cannula Nasal Cannula Oxygen Flow Rate 3 BMI result Body Mass Index 28.5 Appearance: Alert. Oriented X3. No acute distress. Eyes: Pupils equal, round and reactive to light. ENT: Pharynx normal. Neck: Normal inspection. Neck supple. No lymph nodes noted. No crepitus CVS: Normal heart rate and rhythm. Pulses normal. Normal S1 and S2 Respiratory: No respiratory distress. Breath sounds normal. No Wheezing. No rales Abdomen: Distended abdomen positive bowel sounds wound intact. Skin: Skin warm and dry. Normal skin color. Normal skin turgor. Extremities: No lower extremity edema. Neurovascular intact to all extremities. No Lacerations. No Rash Neuro: Oriented X 3. No motor deficit. No sensory deficit. Moving all extermities. No slurred speech Medications Administered Generic Name Dose Route Start Last Admin Trade Name Freq PRN Reason Stop Dose Admin Hydromorphone HCl 0.5 mg 11/10/23 11:51 11/10/23 17:22 Hydromorphone Hcl 0.5 Mg/0.5 Ml Syringe IVPUSH 0.25 mg Q10M PRN Administration Pain, Moderate(Pain Scale 4-6) Protocol Lactated Ringer's 1,000 mls @ 100 mls/hr 11/10/23 07:45 11/10/23 17:32 Lr IVCONT Infused .Q10H LEYLA Infusion Discontinued Medications Generic Name Dose Route Start Last Admin Trade Name Nolanq PRN Reason Stop Dose Admin Fentanyl 25 mcg 11/10/23 08:13 11/10/23 11:15 Fentanyl Citrate/Pf 100 Mcg/2 Ml Vial IVPUSH 25 mcg Q5M PRN Administration Pain, Moderate(Pain Scale 4-6) Protocol Promethazine HCl 6.25 mg/ 50.25 mls @ 201 mls/hr 11/10/23 13:11 11/10/23 17:00 Sodium Chloride IV 11/10/23 13:12 Infused ONCE ONE Infusion Ondansetron HCl 4 mg 11/10/23 08:13 11/10/23 12:03 Ondansetron Hcl 4 Mg/2 Ml Vial IVPUSH 4 mg ONCE PRN Administration Nausea and Vomiting Oxycodone HCl 5 mg 11/10/23 11:10 11/10/23 11:17 Oxycodone Hcl Immed Release 5 Mg Tablet PO 11/10/23 11:11 5 mg ONCE ONE Administration Medical Decision Making Medical Decision Making [facility] Narrative: 73 years old presented today from the PACU with having syncopal episode x2 worse with sitting up. Already received 2 L of fluid postop. Patient's bladder scan showed 300 cc of urine. Will have patient get a Croft catheter. Surgery made aware Dr. Trista parra evaluated the patient. Agreed with plan of admission. Patient has a history of coronary artery disease. Status post stent. His troponin is currently pending. My interpretation of patient's EKG showed a sinus rhythm heart rate is 75 NE QRS QTC within normal limits is no acute ST segment elevation noted. Patient to be admitted for further evaluation. Further monitoring. Additional fluids being given. Differential Diagnosis Differential Diagnoses: The differential diagnosis associated with the presentation includes Dehydration, postop complication, syncope secondary to arrhythmia Admission/Observation Consideration of admission/observation: Escalation of care including admission/observation considered Will admit patient for further evaluation Consult Healthcare Provider Management of the patient was discussed with: Hospitalist and Medical Or Surgical Instrument Maker (Surgery) Lab Data [facility] Lab Attestation statement: I reviewed the patient's lab results. 11/10/23 17:08 11/10/23 17:08 Labs: Lab Results 11/10/23 11/10/23 11/10/23 Range/Units 12:54 17:08 17:09 WBC 16.9 H (4.8-10.8) X10*3/uL RBC 3.73 L (4.60-5.80) X10*6/uL Hgb 12.3 L (14.0-18.0) g/dl Hct 37.0 L (42.0-52.0) % MCV 99.2 H (80.0-98.0) fL MCH 33.0 (27.0-33.0) pg MCHC 33.2 (31.0-36.0) g/dl RDW 13.4 (11.0-16.0) % Plt Count 252 (160-400) X10*3/uL MPV 9.2 L (9.4-12.4) fL Absolute Nucleated RBC 0.000 (0.0-0.012) X10*3/uL Nucleated RBC % (auto) 0.0 (0.0-0.2) /100WBC PT (11.1-13.3) SEC INR (0.9-1.1) Sodium 140 (135-145) mmol/L Potassium 4.6 (3.3-5.1) mmol/L Chloride 107 (96-108) mmol/L Carbon Dioxide 24 (22-29) mmol/L Anion Gap 14 (12-20) BUN 13 (9-16) mg/dL Creatinine 0.95 (0.5-1.4) mg/dL Estim Creat Clear Calc 68.8 Estimated GFR > 60 POC Glucose 145 H (60-115) mg/dL Random Glucose 189 H (60-115) mg/dL Calcium 8.7 (8.4-10.2) mg/dL Total Bilirubin 1.3 H (0.0-1.0) mg/dL AST 38 H (5-37) U/L ALT 57 H (0-40) U/L Alkaline Phosphatase 93 (39-117) U/L Total Creatine Kinase 66 (38-174) U/L Troponin I High Sens < 2.7 (<3.5-35.0) ng/L Total Protein 6.1 L (6.5-8.0) g/dL Albumin 3.5 (3.5-5.0) g/dL 11/10/23 Range/Units 17:10 WBC (4.8-10.8) X10*3/uL RBC (4.60-5.80) X10*6/uL Hgb (14.0-18.0) g/dl Hct (42.0-52.0) % MCV (80.0-98.0) fL MCH (27.0-33.0) pg MCHC (31.0-36.0) g/dl RDW (11.0-16.0) % Plt Count (160-400) X10*3/uL MPV (9.4-12.4) fL Absolute Nucleated RBC (0.0-0.012) X10*3/uL Nucleated RBC % (auto) (0.0-0.2) /100WBC PT 13.5 H (11.1-13.3) SEC INR 1.1 (0.9-1.1) Sodium (135-145) mmol/L Potassium (3.3-5.1) mmol/L Chloride (96-108) mmol/L Carbon Dioxide (22-29) mmol/L Anion Gap (12-20) BUN (9-16) mg/dL Creatinine (0.5-1.4) mg/dL Estim Creat Clear Calc Estimated GFR POC Glucose (60-115) mg/dL Random Glucose (60-115) mg/dL Calcium (8.4-10.2) mg/dL Total Bilirubin (0.0-1.0) mg/dL AST (5-37) U/L ALT (0-40) U/L Alkaline Phosphatase (39-117) U/L Total Creatine Kinase (38-174) U/L Troponin I High Sens (<3.5-35.0) ng/L Total Protein (6.5-8.0) g/dL Albumin (3.5-5.0) g/dL Independent Interpretation I performed an independent interpretation of an: EKG (My interpretation of patient's EKG showed a sinus rhythm heart rate is 70 NE QRS QTC within normal limits there is nonspecific T-wave flattening noted diffusely.) External Record Review External record reviewed: Inpatient record Chronic Conditions Patient?s care impacted by: Hypertension History of coronary artery disease status post stent Discharge Plan Discharge Clinical Impression: Syncope Patient Disposition: Admitted As Inpatient
--- NOTE | 2023-11-10 17:14 | PC.NURSE ---
Trial w/ out O2, lasted approximately 5 minutes and PT desatted to 88% on RA. Placed back on O2 at 3L. Current sat 99%. Dr. Dutta aware.
--- NOTE | 2023-11-10 17:28 | PC.NURSE ---
Gave 0.25mg Dilaudid IV. Decreased dose per Dr. Dutta.
--- NOTE | 2023-11-10 17:33 | PHA.MEDREC ---
Pharmacy Consult ? Medication Reconciliation Pharmacy has completed the medication reconciliation. Spoke to patient's to confirm meds.
[2023-11-10 17:37] LABS: Alanine Aminotransferase 57 U/L (0-40); Albumin Level 3.5 g/dL (3.5-5.0); Alkaline Phosphatase 93 U/L (39-117); Anion Gap 14 (12-20); Aspartate Amino Transferase 38 U/L (5-37); Bilirubin Total 1.3 mg/dL (0.0-1.0); Blood Urea Nitrogen 13 mg/dL (9-16); Calcium 8.7 mg/dL (8.4-10.2); Carbon Dioxide 24 mmol/L (22-29); Chloride 107 mmol/L (96-108); Creatinine Clr Calc Pharmacy 68.8; Estimated Glomerular Filt Rate > 60; Glucose Random 189 mg/dL (60-115); Potassium 4.6 mmol/L (3.3-5.1); Sodium 140 mmol/L (135-145); Total Protein 6.1 g/dL (6.5-8.0)
--- NOTE | 2023-11-10 18:09 | PC.NURSE ---
This RN spoke with PACU regarding abx due prior to surgery. Per EVITA Mckeon the anesthesiologist was supposed to be the one to document the medication and usually there is no issue with it. This RN called pharmacy who stated it should be left on the MAR to avoid false documentation.
--- NOTE | 2023-11-10 18:27 | HO.PM.IMCN ---
History of Present Illness Data of Consult Service Date: 11/10/23 Requesting physician: Ismael Dutta Primary Care Provider: Agustin Mullen MD HPI Reason for consult: syncope 73-year-old male with history of hypertension, hyperlipidemia, GERD, coronary artery disease s/p LEELA RCA 2007 admitted to General surgery s/p laparoscopic cholecystectomy for symptomatic gallstones. Per General surgery, procedure was uneventful and was tolerated well and while being prepared for discharge had a syncopal episode in the PACU. The patient reports uncontrolled pain levels at that time and denies any other prodrome including lightheadedness, visual changes, shortness of breath, palpitations, or chest pain. He he was unresponsive and diaphoretic for several seconds for responded to sternal rub. Anesthesia did see patient at bedside and felt episode was a vagal episode. He is being admitted to general surgery for further management with consult placed hospitalist service due to syncopal episode. The patient currently reports feeling fatigued, comfortable at rest but significant discomfort in RUQ with any movement. He states he has had episodes of near syncope about 3 years ago while on a ladder but did not syncopize at that time. About 13 years ago did syncopize after working outside in June on a hot day. Review of Systems Review of Systems: General: +fatigue. No fevers, malaise, unintentional weight loss HEENT: No blurred vision, diplopia. No sore throat, nasal congestion, rhinorrhea, sinus pain, ear pain Cardiovascular: No chest pain, palpitations, or leg edema Respiratory: No shortness of breath, wheezing, cough GI: +abd pain. No nausea, vomiting : No dysuria, hematuria, increased urinary frequency Neuro: No headaches, weakness, paresthesias, lightheadedness. +syncope Skin: No rashes or lesions [facility] Medical History GERD (gastroesophageal reflux disease) Elevated cholesterol Low back pain Depression CAD (coronary artery disease) Stable angina Gallstones Scoliosis Carpal tunnel syndrome C2 cervical fracture Arthritis Hypertension Family History Father HTN (hypertension) Cardiac arrest Mother HTN (hypertension) Stroke Sister HTN (hypertension) Cancer Surgical History S/P laparoscopic cholecystectomy Hx of carpal tunnel repair History of esophagogastroduodenoscopy (EGD) H/O colonoscopy History of cardiac cath Social History Are you a primary neonatal intensive care unit nurse to a significant other at home: No Do you presently have visiting nurse or other home services: No Alcohol intake: never Patient Tobacco Use Status: Former Tobacco user Quit Date: 1970 Tobacco use type: Cigarette Years Smoked: 3 +/- Smoked in Last 30 Days: No Use of substances other than those prescribed or required for medical reasons: No Have you been hit, kicked, punched, or otherwise hurt by someone within the past year? If so, by whom?: No Are you DNR?: Yes Advance Directives Information Provided: Yes (as above noted-will bring copies DOS) Advance Directives on File: No Recently lost weight without trying: No Eating poorly because of decreased appetite: No Nutrition Risks: No Nutritional Risk Poor oral hygiene: No (implants & crowns) Meds Allergies Allergy/AdvReac Type Severity Reaction Status Date / Time No Known Allergies Allergy Verified 11/10/23 08:20 Active Medications: Current Medications Hydromorphone HCl (Hydromorphone Hcl 0.5 Mg/0.5 Ml Syringe) 0.5 mg IVPUSH Q10M PRN; Protocol PRN Reason: Pain, Moderate(Pain Scale 4-6) Last Admin: 11/10/23 17:22 Dose: 0.25 mg Hydromorphone HCl (Hydromorphone Hcl 0.5 Mg/0.5 Ml Syringe) 0.25 mg IVPUSH Q2H PRN; Protocol PRN Reason: Pain, Severe (Pain Scale 7-10) Lactated Ringer's (Lr) 1,000 mls @ 100 mls/hr IVCONT .Q10H LEYLA Last Infusion: 11/10/23 17:32 Dose: Infused Metoprolol Tartrate (Metoprolol Tartrate 12.5 Mg Halftab) 12.5 mg PO BID LEYLA; Protocol Omeprazole (Omeprazole 40 Mg Capsule.Dr) 40 mg PO BEDTIME LEYLA Ondansetron HCl (Ondansetron Hcl 4 Mg/2 Ml Vial) 4 mg IVPUSH Q8H PRN PRN Reason: nausea Sodium Chloride (0.9 % Sodium Chloride Flush 3 Ml Syringe) [facility] S[facility] Chloride (0.9 % Sodium Chloride Flush 3 Ml Syringe) 3 ml IVFLUSH [facility] Home Medications Medication Instructions Recorded Confirmed Last Taken Type aspirin 81 mg tablet,delayed 81 mg PO DAILY 01/13/21 11/05/23 11/09/23 History release (Adult Low Dose Aspirin) atorvastatin 20 mg tablet 20 mg PO Q OTHER DAY 01/13/21 11/10/23 11/08/23 History losartan 100 mg tablet 100 mg PO BEDTIME 01/13/21 11/10/23 11/09/23 History metoprolol tartrate 25 mg tablet 12.5 mg PO BID 01/13/21 11/05/23 11/10/23 00:10 History omeprazole 40 mg capsule,delayed 40 mg PO BEDTIME 01/13/21 11/10/23 11/09/23 History release tramadol 50 mg tablet 50 mg PO BID PRN Pain 01/13/21 11/10/23 Unknown History acetaminophen 500 mg tablet 500 mg PO Q6H PRN Pain 11/03/23 11/10/23 Unknown History cholecalciferol (vitamin D3) 25 25 mcg PO DAILY 11/03/23 11/10/23 11/09/23 History mcg (1,000 unit) capsule glucosamine-chondroitin 500 mg-400 1 cap PO DAILY 11/03/23 11/10/23 11/09/23 History mg capsule magnesium oxide 500 mg tablet 500 mg PO DAILY 11/03/23 11/10/23 11/09/23 History mecobalamin (vitamin B12) 2,500 3,000 mcg PO DAILY 11/03/23 11/10/23 11/09/23 History mcg chewable tablet omega 0-hcp-pfg-fish oil 1,000 mg 1 cap PO DAILY 11/03/23 11/05/23 11/09/23 History (120 mg-180 mg) capsule (Fish Oil) amlodipine 5 mg tablet 5 mg PO BEDTIME 11/05/23 11/10/23 11/09/23 History Physical Exam Vital Signs and Narrative: Vital Signs: Last Vital Signs Temp 97 F 11/10/23 12:40 Pulse 69 11/10/23 17:06 Resp 13 11/10/23 17:06 BP 146/61 H 11/10/23 17:06 Pulse Ox 100 11/10/23 17:06 O2 Del Method Nasal Cannula 11/10/23 17:06 O2 Flow Rate 3 11/10/23 17:06 Oxygen Flow Rate 2 11/10/23 17:00 BMI result Body Mass Index 28.5 Constitutional - Awake and Alert, No apparent distress Eyes - PERRLA, EOMI Cardiovascular - S1S2, RRR, No edema Respiratory - Normal lung expansion, Normal respiratory effort, No respiratory distress, CTA bilaterally Extremities - no calf tenderness bilaterally, no swelling Skin - Warm/Dry Neurological - Alert & oriented x3, CN II-XII in tact Psychological - Appropriate affect Results Labs 11/10/23 17:08 11/10/23 17:08 Labs: Laboratory Results - last 24 hr 11/10/23 11/10/23 11/10/23 12:54 17:08 17:10 MCV 99.2 H MCH 33.0 MCHC 33.2 RDW 13.4 Plt Count 252 MPV 9.2 L Absolute Nucleated RBC 0.000 Nucleated RBC % (auto) 0.0 PT 13.5 H INR 1.1 Anion Gap 14 Estim Creat Clear Calc 68.8 Estimated GFR > 60 POC Glucose 145 H Random Glucose 189 H Calcium 8.7 Total Bilirubin 1.3 H AST 38 H ALT 57 H Alkaline Phosphatase 93 Total Creatine Kinase 66 Total Protein 6.1 L Albumin 3.5 Assessment and Plan (1) Syncope: Status: Acute Plan 73-year-old male with history of hypertension, hyperlipidemia, GERD, coronary artery disease s/p LEELA 2007 admitted to General surgery s/p laparoscopic cholecystectomy for symptomatic gallstones. In discussion with patient and review of chart, syncopal episode seems consistent with vasovagal syncope given given pallor and diaphoresis likely in the setting of pain coupled with acute blood loss secondary to surgery given absence of other prodrome. Blood pressures have been stable in PACU, no arrhythmia noted on heel seat trimmer. Hgb 15.2 --> 12.3. Trop below detectable limits. Low suspicion for PE or ACS at this time. No focal neuro deficits. #Cholelithiasis s/p lap roosevelt -plan per general surgery -optimize pain management #Vasovagal syncope -Check EKG -Continue IV LR per general surgery -pain management -Monitor VS closely -Follow H/H -Continue telemetry monitoring #HTN -bp's stable, no hypotension post-operatively -continue metoprolol -hold lisinopril and amlodipine to prevent post-operative hypotension given vagal episode, resume as appropriate #HLD -continue statin #CAD -no anginal chest pain, trop below detectable limits, doubt acs -check ekg -resume asa per general surgery, continue statin/bb #GERD -continue ppi Thank you for this consult. Will continue following along with you.
--- NOTE | 2023-11-10 19:05 | PM.EVENT ---
Event Note Date of Service: 11/11/23 Event Note: now much more comfortable able to nap stable VS abd with some distension but soft tender on incisions labs checked troponin low as per - he has had multiple near syncopal episodes at home on Dilaudid for now repeat labs in AM Hospitalist consulted Charlene updated by phone Time Spent With Patient Time: Total time managing care of this patient today ____ minutes.
--- NOTE | 2023-11-10 20:54 | PC.NURSE ---
PT laying in bed resting, requested medication for 1010 pain. BP found to be 90/47 with a HR of 106 on L arm, right arm 87/45. PT arousable to voice and oriented x 3. Dr. Delgado notified, 1L bolus of NS ordered and now running. Dilaudid and Metoprolol held. PT refused his PO Omeprazole.
--- NOTE | 2023-11-10 22:22 | PC.NURSE ---
1000mls of NS infused, BP 101/50 HR 110 O2 97 temp 98.1 - Dr. Delgado made aware via [employer], plan of care ongoing.
--- NOTE | 2023-11-10 22:55 | PC.NURSE ---
BP currently 105/46, HR 112 per edward Briceno to give Dilaudid 0.25mg IV.
[2023-11-11] VITALS (24 sets, daily range): BP systolic 99–149; BP diastolic 46–70; PULSE 94–126; RESP 10–25; TEMP 36.1–37.8; O2SAT 91–98
--- NOTE | 2023-11-11 00:45 | PC.NURSE ---
BP's are soft 88-90/43, P 110-120. Patient sleeping, medicated with Dilaudid 0.25 mg at 22:59. LR running at 100 mL/hr. Dr. Dutta notified, verbal order obtained for LR bolus 500 mL and Ofirmev 100 mg IV Q 6 H for pain.
--- NOTE | 2023-11-11 00:53 | PC.NURSE ---
Clarified with Dr. Dutta Ofirmef 100 mg IV Q 6 H for pin.
--- NOTE | 2023-11-11 02:43 | PC.NURSE ---
Patient continues to endorse 10/10 abdominal pain with no response to pain medications. Patient reports no flatus since surgical procedure in am, abdomen distended, BS hypoactive. BP slightly improved after bolus of LR 98-104/53, P 118-120. Dr. Dutta notified, no new orders at this time. Patient repositioned in bed, call serrano within patient's reach. Plan of care ongoing.
--- NOTE | 2023-11-11 03:13 | PM.EVENT ---
Event Note Date of Service: 11/11/23 Event Note: called to eval pt c/o of pain still - unusual for lap roosevelt abd distended BP reported to be soft earlier - responded to fluid bolus abd soft, although distended, tender on various areas ordered CT, labs - r/o bleeding/hematoma Time Spent With Patient Time: Total time managing care of this patient today ____ minutes.
--- NOTE | 2023-11-11 03:35 | PC.NURSE ---
Patient's bladder scanned with > 300 mL of urine noted in patient's bladder, Dr. Dutta made aware, new order received to insert 16 Fr. F/C with 10 ML balloon inflation.
--- NOTE | 2023-11-11 03:58 | PC.NURSE ---
16 Fr F/C inserted, balloon inflated with 10 mL of sterile water, 450m mL of yessica colored urine in F/C bag with catheter insertion. Patient tolerated procedure well.
--- NOTE | 2023-11-11 04:00 | PC.NURSE ---
Patient taken to CT scan.
[2023-11-11 06:30] LABS: Hematocrit 27.3 % (42.0-52.0); Hemoglobin 9.3 g/dl (14.0-18.0); Mean Corpuscular HGB Conc 34.1 g/dl (31.0-36.0); Mean Corpuscular Volume 96.8 fL (80.0-98.0); Mean Platelet Volume 9.3 fL (9.4-12.4); Platelet Count 253 X10*3/uL (160-400); Red Blood Count 2.82 X10*6/uL (4.60-5.80); Red Cell Distribution Width 13.4 % (11.0-16.0); White Blood Count 13.2 X10*3/uL (4.8-10.8)
--- NOTE | 2023-11-11 06:38 | PM.EVENT ---
Event Note Date of Service: 11/11/23 Event Note: pt's BP more steady now HR elevated c/o CT reviewed - c/w hematoma around liver Hg 9.3 continue pain mgt tranfuse 1 unit as pt has hx of CAD follow H/H pain mgt Time Spent With Patient Time: Total time managing care of this patient today ____ minutes.
[2023-11-11 06:48] LABS: Anion Gap 14 (12-20); Blood Urea Nitrogen 24 mg/dL (9-16); Calcium 8.1 mg/dL (8.4-10.2); Carbon Dioxide 22 mmol/L (22-29); Chloride 107 mmol/L (96-108); Creatinine Clr Calc Pharmacy 49.9; Estimated Glomerular Filt Rate 54; Glucose Random 177 mg/dL (60-115); Potassium 4.9 mmol/L (3.3-5.1); Sodium 138 mmol/L (135-145)
--- NOTE | 2023-11-11 07:47 | PC.NURSE ---
Resumed care of patinet, he is currently laying supine in bed, shallow breathing d.t pain. Dr. Dutta contacted to obtain blood consent, blood is ready at this time. BP remains soft, second IV placed, awaiting OR time
--- NOTE | 2023-11-11 08:15 | PM.PNGS ---
Subjective Subjective Date of Service: 11/11/23 Interval history: Says he has abdominal pain No nausea or vomiting Blood pressure 90s to 100 systolic Had urinary retention so Croft catheter inserted early this morning Physical Exam Vital Signs: Vital Signs: Last Vital Signs Temp 98.0 F 11/11/23 05:47 Pulse 111 H 11/11/23 05:47 Resp 25 H 11/11/23 05:47 BP 108/63 11/11/23 05:47 Pulse Ox 98 11/11/23 05:47 O2 Del Method Nasal Cannula 11/11/23 05:47 O2 Flow Rate 2 11/11/23 05:47 Oxygen Flow Rate 2 11/10/23 17:00 BMI result Body Mass Index 28.5 Const: Other: Complains of abdominal pain Resp: Effort & Inspection: normal respiratory effort Cardio: Rate: tachycardic GI: Other: Distended but soft, dressings dry, tender touch diffusely Objective Data Active Medications Hydromorphone HCl (Hydromorphone Hcl 0.5 Mg/0.5 Ml Syringe) 0.5 mg IVPUSH Q10M PRN; Protocol PRN Reason: Pain, Moderate(Pain Scale 4-6) Last Admin: 11/10/23 17:22 Dose: 0.25 mg Documented By: TABITHA Comments: Gave 0.25mg per Dr. Dutta's instructions Lactated Ringer's (Lr) 1,000 mls @ 100 mls/hr IVCONT .Q10H [facility] Last Admin: 11/11/23 04:18 Dose: Not Given Documented By: ARIC Non-Admin Reason: Duplicate Order Lactated Ringer's (Lr) 1,000 mls @ 100 mls/hr IVCONT .Q10H [facility] Last Admin: 11/11/23 05:44 Dose: 100 mls/hr Documented By: ARIC Acetaminophen (Ofirmev) 1,000 mg in 100 mls @ 400 mls/hr IV Q6H [facility] Last Infusion: 11/11/23 02:11 Dose: Infused Documented By: ARIC Metoprolol Tartrate (Metoprolol Tartrate 12.5 Mg Halftab) 12.5 mg PO BID [facility]; Protocol Last Admin: 11/10/23 20:47 Dose: Not Given Documented By: JESSICA Non-Admin Reason: Decreased Blood Pressure Morphine Sulfate (Morphine Sulfate 2 Mg/Ml Cartridge) 2 mg IVPUSH Q2H PRN; Protocol PRN Reason: Pain, Severe (Pain Scale 7-10) Last Admin: 11/11/23 05:39 Dose: 2 mg Documented By: ARIC Omeprazole (Omeprazole 40 Mg Capsule.Dr) 40 mg PO BEDTIME [facility] Last Admin: 11/10/23 22:29 Dose: 40 mg Documented By: TABITHA Ondansetron HCl (Ondansetron Hcl 4 Mg/2 Ml Vial) 4 mg IVPUSH Q8H PRN PRN Reason: nausea Last Admin: 11/11/23 05:39 Dose: 4 mg Documented By: ARIC Sodium Chloride (0.9 % Sodium Chloride Flush 3 Ml Syringe) [facility] Last Admin: 11/11/23 01:08 Dose: 3 ml Documented By: ARIC Sodium Chloride (0.9 % Sodium Chloride Flush 3 Ml Syringe) 3 ml IVFLUSH [facility] Last Admin: 11/11/23 01:09 Dose: Not Given Documented By: ARIC Non-Admin Reason: Duplicate Order Labs 11/11/23 10:27 11/11/23 06:02 Labs: Laboratory Results - last 24 hr 11/10/23 11/10/23 11/10/23 12:54 17:08 17:10 MCV 99.2 H MCH 33.0 MCHC 33.2 RDW 13.4 Plt Count 252 MPV 9.2 L Absolute Nucleated RBC 0.000 Nucleated RBC % (auto) 0.0 PT 13.5 H INR 1.1 Anion Gap 14 Estim Creat Clear Calc 68.8 Estimated GFR > 60 POC Glucose 145 H Random Glucose 189 H Calcium 8.7 Total Bilirubin 1.3 H AST 38 H ALT 57 H Alkaline Phosphatase 93 Total Creatine Kinase 66 Total Protein 6.1 L Albumin 3.5 Blood Type Antibody Screen Crossmatch 11/11/23 06:02 MCV 96.8 MCH 33.0 MCHC 34.1 RDW 13.4 Plt Count 253 MPV 9.3 L Absolute Nucleated RBC 0.000 Nucleated RBC % (auto) 0.0 PT INR Anion Gap 14 Estim Creat Clear Calc 49.9 Estimated GFR 54 POC Glucose Random Glucose 177 H Calcium 8.1 L D Total Bilirubin AST ALT Alkaline Phosphatase Total Creatine Kinase Total Protein Albumin Blood Type O Positive Antibody Screen NEGATIVE Crossmatch See Detail Procedures Date of Service Date of Service: 11/11/23 Progress Note: A&P Assessment and plan (1) S/P laparoscopic cholecystectomy: Status: Acute Assessment and Plan: He was admitted last night for syncope prior to discharge Hg repeated this morning - down to 9.3 CT scan shows hematoma around the liver Tenderness diffusely likely from the large hematoma 1 unit ordered Plan to follow hemoglobin Bleeding likely from liver bed or small vessel Hopeful that this will tamponade If persistent bleeding, may need to explore, control bleeder and evacuate hematoma (2) Hematoma: Status: Acute Assessment and Plan: Transfusion order Pain likely due to the hematoma Time Spent With Patient Time: Total time managing care of this patient today ____ minutes. Quality Stroke Does the patient have a stroke diagnosis?: No VTE Prior VTE?: No VTE Risk Level:: Medical - moderate - high VTE Device Contraindication: N/A - Device Ordered VTE Drug Contraindication: Treatment Not Indicated
--- NOTE | 2023-11-11 09:26 | PC.NURSE ---
Iveth perdue at bedside at this time, Dr. Dutta notified of pt verbalizing increase in abdominal pressure/pain. Tra at bedside. Blood running at this time, tolerating well, HR remains elevated, BP stable.
--- NOTE | 2023-11-11 10:08 | PC.NURSE ---
This policy writer typist contacted Iveth Sorenson again after relaying concerns to Dr. Dutta. Blood contnues to infuse, HR continues to be 120s, BP more stable at this time. pt remains 93% on 2l NC. Dr. Bear at bedside with US at this time. Croft remains draining urine, pt has no bowel sounds in LLQ/RLQ/RUQ, hypoactive bowel sounds in LUQ, pt continues to have severe guarding of abdomen.
--- NOTE | 2023-11-11 10:58 | PM.EVENT ---
Event Note Date of Service: 11/11/23 Event Note: Finished transfusion of 1 unit of packed RBC Hemoglobin up on the to 9.8 from 9.3 Blood pressure much improved but still tachycardic thread cutter tender diffusely I had a long discussion with the patient In view of minimal increase in H&H after transfusion, it may be best to do laparotomy, control any bleeder and evacuate the hematoma I explained to him the technique of this procedure I reviewed the risks including but not limited to bleeding, infections, bowel injury, injury to other organs, inherent risks of anesthesia including AL He agrees to proceed I have discussed above with his Charlene at [phone] Time Spent With Patient Time: Total time managing care of this patient today ____ minutes.
--- NOTE | 2023-11-11 11:33 | PC.NURSE ---
this song writer talk with OR to give handoff, OR at bedside as well, monitors changed over from ED to OR monitors. This song writer contacted pt to give update on events that have happened since we spoke this morning. Pt was ice packed d/t rectal temp and pt request. Pt reynolds remains to drain yellow urine at this time. Pt had been having ice chips this am d/t sore throat and tolerated well.
--- NOTE | 2023-11-11 13:06 | MHC.CM.PN ---
Pt undergoing care, CM to return for IMM. Pt lives with his , he is independent, no home health services, or med equip. He has not used [facility] or been to [facility] in the past, HCP with him, CM obtained copy and it is in record. PCP: Agustin Mullen, and pt sees Ananth Patel at [facility]. CM to follow and assist with DC planning.
--- NOTE | 2023-11-11 13:26 | HO.PM.IMPN ---
Subjective Subjective Date of Service: 11/11/23 Interval History: seen and examined this morning follow up medical consultation patient reporting severe abdominal pain no other complaints Review of Systems Review of Systems: Yes all other systems are reviewed and are negative Constitutional Constitutional: Denies chills and Denies fever(s) Cardiovascular Cardiovascular: Denies chest pain, Denies palpitations and Denies dyspnea Respiratory Respiratory: Denies cough and Denies dyspnea Endocrine Endocrine: Denies palpitations Physical Exam Vital Signs: Vital Signs: Last Vital Signs Temp 97.0 F 11/11/23 11:23 Pulse 120 H 11/11/23 11:23 Resp 20 11/11/23 11:23 BP 132/66 11/11/23 11:23 Pulse Ox 91 L 11/11/23 11:23 O2 Del Method Room Air 11/11/23 11:23 O2 Flow Rate 2 11/11/23 11:02 Oxygen Flow Rate 2 11/10/23 17:00 BMI result Body Mass Index 28.5 Const: Other: appears uncomfortable; awake, alert Orientation/consciousness: patient oriented x3 Resp: Effort & Inspection: normal respiratory effort, able to speak in complete sentences, no respiratory distress and no use of accessory muscles Cardio: Rate: tachycardic GI: Other: abdomen diffusely tender Neuro: Other: grossly nonfocal General: patient oriented x3 Extrem: General: Yes no pedal edema Objective Data Active Medications Hydromorphone HCl (Hydromorphone Hcl 0.5 Mg/0.5 Ml Syringe) 0.5 mg IVPUSH Q10M PRN; Protocol PRN Reason: Pain, Moderate(Pain Scale 4-6) Last Admin: 11/10/23 17:22 Dose: 0.25 mg Documented By: TABITHA Comments: Gave 0.25mg per Dr. Dutta's instructions Lactated Ringer's (Lr) 1,000 mls @ 100 mls/hr IVCONT .Q10H [facility] Last Admin: 11/11/23 04:18 Dose: Not Given Documented By: ARIC Non-Admin Reason: Duplicate Order Lactated Ringer's (Lr) 1,000 mls @ 100 mls/hr IVCONT .Q10H [facility] Last Admin: 11/11/23 05:44 Dose: 100 mls/hr Documented By: ARIC Acetaminophen (Ofirmev) 1,000 mg in 100 mls @ 400 mls/hr IV Q6H [facility] Last Infusion: 11/11/23 08:59 Dose: Infused Documented By: RIANA Lactated Ringer's (Lr) 1,000 mls @ 100 mls/hr IVCONT .Q10H [facility] Metoprolol Tartrate (Metoprolol Tartrate 12.5 Mg Halftab) 12.5 mg PO BID [facility]; Protocol Last Admin: 11/11/23 10:45 Dose: 12.5 mg Documented By: RIANA Comments: admin per provider Morphine Sulfate (Morphine Sulfate 2 Mg/Ml Cartridge) 2 mg IVPUSH Q2H PRN; Protocol PRN Reason: Pain, Severe (Pain Scale 7-10) Last Admin: 11/11/23 10:55 Dose: 2 mg Documented By: RIANA Omeprazole (Omeprazole 40 Mg Capsule.Dr) 40 mg PO BEDTIME [facility] Last Admin: 11/10/23 22:29 Dose: 40 mg Documented By: TABITHA Ondansetron HCl (Ondansetron Hcl 4 Mg/2 Ml Vial) 4 mg IVPUSH Q8H PRN PRN Reason: nausea Last Admin: 11/11/23 05:39 Dose: 4 mg Documented By: ARIC Sodium Chloride (0.9 % Sodium Chloride Flush 3 Ml Syringe) [facility] Last Admin: 11/11/23 08:59 Dose: Not Given Documented By: RIANA Non-Admin Reason: IV Running Sodium Chloride (0.9 % Sodium Chloride Flush 3 Ml Syringe) 3 ml IVFLUSH QSAKFT [facility] Last Admin: 11/11/23 08:59 Dose: Not Given Documented By: RIANA Non-Admin Reason: IV Running Labs 11/11/23 10:27 11/11/23 06:02 Labs: Laboratory Results - last 24 hr 11/10/23 11/10/23 11/11/23 17:08 17:10 06:02 POC Hgb (Calc) POC Hct MCV 99.2 H 96.8 MCH 33.0 33.0 MCHC 33.2 34.1 RDW 13.4 13.4 Plt Count 252 253 MPV 9.2 L 9.3 L Absolute Nucleated RBC 0.000 0.000 Nucleated RBC % (auto) 0.0 0.0 PT 13.5 H INR 1.1 POC Std Base Excess POC O2 Sat (Calc) POC ABG pO2 POC ABG Total CO2 POC Capillary pH POC Capillary pCO2 POC Cap HCO3 (Calc) POC Sodium POC Potassium Anion Gap 14 14 Estim Creat Clear Calc 68.8 49.9 Estimated GFR > 60 54 POC Glucose Random Glucose 189 H 177 H Calcium 8.7 8.1 L D Total Bilirubin 1.3 H AST 38 H ALT 57 H Alkaline Phosphatase 93 Total Creatine Kinase 66 Total Protein 6.1 L Albumin 3.5 Blood Type O Positive Antibody Screen NEGATIVE Crossmatch See Detail 11/11/23 13:04 POC Hgb (Calc) 9.2 L POC Hct 27 L MCV MCH MCHC RDW Plt Count MPV Absolute Nucleated RBC Nucleated RBC % (auto) PT INR POC Std Base Excess -3 POC O2 Sat (Calc) 99 POC ABG pO2 144 H POC ABG Total CO2 25 POC Capillary pH 7.28 L POC Capillary pCO2 50 H POC Cap HCO3 (Calc) 24 POC Sodium 137 POC Potassium 5.0 Anion Gap Estim Creat Clear Calc Estimated GFR POC Glucose 166 H Random Glucose Calcium Total Bilirubin AST ALT Alkaline Phosphatase Total Creatine Kinase Total Protein Albumin Blood Type Antibody Screen Crossmatch Assessment and Plan (1) Hematoma: Status: Acute Plan 73-year-old male with history of hypertension, hyperlipidemia, GERD, coronary artery disease s/p LEELA 2007 admitted to General surgery s/p laparoscopic cholecystectomy for symptomatic gallstones. In discussion with patient and review of chart, syncopal episode seems consistent with vasovagal syncope given given pallor and diaphoresis likely in the setting of pain coupled with acute blood loss secondary to surgery given absence of other prodrome. Blood pressures have been stable in PACU, no arrhythmia noted on residential monitor. Hgb 15.2 --> 12.3. Trop below detectable limits. Low suspicion for PE or ACS at this time. No focal neuro deficits. #Cholelithiasis s/p lap roosevelt with post operative hematoma H/H trending down, plan to return to OR today for exploration possible evacuation of hematoma #Vasovagal syncope likely due to above, no further episodes continue close monitoring #GUTIERREZ creatinine trending up getting IVF follow renal function #HTN BP soft overnight -continue metoprolol -hold lisinopril and amlodipine to prevent post-operative hypotension given vagal episode, resume as appropriate #HLD hold statin for now, resume on discharge #CAD -no anginal chest pain, trop below detectable limits, doubt acs -asa on hold for surgery, hematoma; continue BB #GERD -continue ppi Thank you for this consult. Will continue following along with you. Quality Stroke Does the patient have a stroke diagnosis?: No VTE Prior VTE?: No VTE Risk Level:: Medical - moderate - high VTE Device Contraindication: N/A - Device Ordered VTE Drug Contraindication: Treatment Not Indicated
--- NOTE | 2023-11-11 14:19 | HO.POSTANES ---
Post Anesthesia Evaluation Post Anesthesia Evaluation Date of Service: 11/11/23 Vital Signs: Vital Signs Temp Pulse Resp BP Pulse Ox O2 Del Method O2 Flow Rate 11/11/23 11:23 97.0 F 120 H 20 132/66 91 L Room Air 11/11/23 11:02 100.0 F 124 H Nasal Cannula 2 11/11/23 10:55 14 11/11/23 10:34 97.7 F 124 H 14 128/68 11/11/23 08:58 98.1 F 120 H 14 104/68 11/11/23 08:47 98.6 F 126 H 14 108/66 11/11/23 08:43 14 11/11/23 08:36 123 H 11/11/23 08:24 98.6 F 126 H 18 108/66 95 Nasal Cannula 2 11/11/23 05:47 98.0 F 111 H 25 H 108/63 98 Nasal Cannula 2 11/11/23 05:39 24 H Anesthesia: General Endotracheal-GETA Mental Status: Awake Pain Control: Satisfactory (complains of pain) Nausea/Vomiting: Mild Hydration: Adequate Anesthesia-Related Issues: No Anes. Related Issues Comments: Patient brought back to OR today for ex-lap evacuation of hematoma.
--- NOTE | 2023-11-11 14:29 | W.PM.OPN ---
Operative Note Operative Note Date of Service: 11/11/23 Narrative: Preop diagnosis: Postop bleeding and hematoma, status post laparoscopic cholecystectomy Postop diagnosis: The same Procedure: Laparotomy, control of bleeder under the gallbladder fossa, near the cystic duct stump, evacuation of hematoma, placement of DONATO drain Surgeon: Ismael Dutta MD [address] visitor use assistant: Quincy Parkinson MD Assistants: MD RICHARDSON Fitzgerald The patient is a 73-year-old male who had undergone laparoscopic cholecystectomy today for gallstones with chronic cholecystitis and symptoms. He had a syncopal episode just prior to discharge from the PACU yesterday afternoon so he was kept overnight. He continued to have unusual pain along with borderline blood pressure. I therefore ordered for a CT scan early this morning which showed a large hematoma surrounding the liver. He was ordered for 1 unit of p RBC and and repeat H&H showed minimal increased from 9.2-9.8. he remained tachycardic with pain so I explained to him that it will be best to explore and control any bleeders. He understood the planned procedure as well as the risks, benefits, and alternatives He was brought to the operating room. He was placed supine under general anesthesia via endotracheal tube. The abdomen was prepped and draped in the usual sterile fashion. A surgical time-out was done. The patient received cephalo stool in 2 g IV preoperatively. I made a an upper midline incision using blade number 15. This carried down to full-thickness of the skin subcutaneous fat down to the fascia. The fascia was incised. The peritoneum was entered. We proceeded to apply retractors . I retracted bowel loops away from the subhepatic space. We were able to see large amounts of clots in this area. This was evacuated. There was note of pulling of dark blood as well. We proceeded to suction and exposed this area We noticed that there was some significant steady oozing from a matted area of fat adjacent to the cystic duct stump. this appeared to be more of a use who is from this area. We attempted to apply clips initially without success as the clips appeared to just fall off from the friability of this fat areolar tissue . He had spent some time attempting to control this with clips but without success. I attempted placing a [id number] stitch as well but this did not achieve hemostasis at all . we applied packing with labs as well as Surgicel and snow for hemostasis on this area without any success. Since there was steady oozing from this area without as being able to achieve good hemostasis,, we decided to call in the vascular surgeon Dr. Parkinson. He scrubbed in on the procedure as well. We applied retraction on the surrounding bowel loops along with a Freistatt retractor. The bowel loops were protected with lap pads. We continued to attempt to achieve good visualization of the steady oozing area. This did not appear to be an single arterial bleeder path rather was like a raw oozing area. Eventually, we were able to apply 2 clips on this matted area of fibroareolar tissue which seemed to have allowed adequate hemostasis. We intermittently applied Surgicel as well as Snow for hemostasis prior to that without any significant success. At some point, we noticed that the 2 clips on the cystic duct stump were loosening and there was note of some scanty amount of bile from this area. Furthermore, the cystic duct stump had retracted to an area of matted tissue so there was very little stump to work with to apply fresh clips. I therefore had to close this stump with figure-eight nylon Prolene 5 0 sutures. It appears that this closed the stump adequately. We irrigated and examined for hemostasis.. We applied Snow and Surgicel as well. I positioned a DONATO drain in the subhepatic space along this area and this was brought out through an exit site on the right side of the abdomen. This was secured to the skin with 3-0 sutures. We continue to observe and wants it appeared that we had adequate hemostasis, I proceeded to then irrigate again. We removed all the lap pads. We closed the fascia with a running Maxon 1 stitch. Initial and final counts of sponges and instruments were then determined to be correct so we closed the skin with since laure. I infiltrated the incisions with Marcaine 0.5% for postop analgesia Dressings were applied Since we did not count the Freistatt retractors as this was opened in the middle of the procedure, a KUB was done at the end and this did not reveal any retained foreign body. Estimated blood loss was about a 1000 cc including clots that were evacuated. The patient was transfused with 3 units packed RBC in anticipation of a drop in H&H. However, there were no immediate complications during the procedure itself The patient is then transferred to the ICU with stable vital signs.
--- NOTE | 2023-11-11 15:00 | PC.NURSE ---
pt arrives to unit from or bedside report from staff. pt is alert to stimuli, not resposive to questions, confused, pulling at tubes.
--- NOTE | 2023-11-11 15:43 | PM.CCN ---
Critical Care Event Note Summary Date of Service: 11/11/23 Code activated: No Narrative: 73-year-old gentleman with underlying hypertension, hyperlipidemia, CAD status post drug-eluting stent in 2007 admitted on 11/10/2023 after laparoscopic cholecystectomy for cholelithiasis. Returned to [facility] 11/11/2023 for hematoma evacuation with EBL of approximately 1 L, status post 4 units of packed red blood cells. Now being monitored in the intensive care in the postop period. Critical Care Time (minutes): 0
--- NOTE | 2023-11-11 16:55 | PM.EVENT ---
Event Note Date of Service: 11/12/23 Event Note: seen postop in ICU waking up, able to communicate says he has adequate pain control NGT in place good UO DONATO drain - dark blood noted BP stable, HR in the 90's Hg 11 pain mgt drain care follow Hg Charlene updated earlier - explained procedure to her Time Spent With Patient Time: Total time managing care of this patient today ____ minutes.
[2023-11-12] VITALS (18 sets, daily range): BP systolic 131–179; BP diastolic 46–76; PULSE 84–104; RESP 13–21; TEMP 36.6–37.2; O2SAT 92–95; BMI 33.4
[2023-11-12 05:44] LABS: VBG Base Excess 4.7 mmol/L; VBG HCO3 28 mmol/L (22-26); VBG pCO2 40 mmHg; VBG pH 7.45 (7.32-7.43); VBG pO2 35 mmHg
--- NOTE | 2023-11-12 08:33 | PM.PNGS ---
Subjective Subjective Date of Service: 11/16/23 Interval history: no events overnight c/o incisional pain good UO Physical Exam Vital Signs: Vital Signs: Last Vital Signs Temp 98.9 F 11/12/23 08:00 Pulse 95 11/12/23 08:00 Resp 18 11/12/23 08:00 BP 139/51 L 11/12/23 08:00 Pulse Ox 93 11/12/23 08:00 O2 Del Method Nasal Cannula 11/12/23 08:00 O2 Flow Rate 2 11/12/23 08:00 Oxygen Flow Rate 2 11/10/23 17:00 BMI result Body Mass Index 33.4 Const: Other: awake General: no acute distress Resp: Effort & Inspection: normal respiratory effort Cardio: Rhythm: regular rhythm GI: Other: soft, dressings dry, DONATO drain - bloody, but low amount Objective Data Active Medications Acetaminophen (Ofirmev) 1,000 mg in 100 mls @ 400 mls/hr IV Q6H [facility] Last Infusion: 11/12/23 08:14 Dose: Infused Documented By: JULI Potassium Phosphate (Kphos) 15 mmol in 250 mls @ 62.5 mls/hr IV ONCE ONE Stop: 11/12/23 11:59 Last Admin: 11/12/23 07:43 Dose: 62.5 mls/hr Documented By: JULI Albumin Human (Kedbumin 25 %) 100 mls @ 100 mls/hr IV Q6H [facility] Stop: 11/13/23 02:59 Last Admin: 11/12/23 07:32 Dose: 100 mls/hr Documented By: JULI Morphine Sulfate (Morphine Sulfate 2 Mg/Ml Cartridge) 2 mg IVPUSH Q2H PRN; Protocol PRN Reason: Pain, Severe (Pain Scale 7-10) Last Admin: 11/12/23 05:47 Dose: 2 mg Documented By: JOSE ALFREDO Ondansetron HCl (Ondansetron Hcl 4 Mg/2 Ml Vial) 4 mg IVPUSH Q8H PRN PRN Reason: nausea Last Admin: 11/11/23 05:39 Dose: 4 mg Documented By: ARIC Sodium Chloride (0.9 % Sodium Chloride Flush 3 Ml Syringe) 3 ml IVFLUSH [facility] Last Admin: 11/12/23 07:32 Dose: 3 ml Documented By: JULI Labs 11/16/23 06:10 11/16/23 06:10 Labs: Laboratory Results - last 24 hr 11/11/23 11/11/23 11/11/23 06:02 13:04 14:14 POC Hgb (Calc) 9.2 L 10.5 L POC Hct 27 L 31 L MCV MCH MCHC RDW Plt Count MPV Immature Gran % (Auto) Neut % (Auto) Lymph % (Auto) [place] % (Auto) Eos % (Auto) Baso % (Auto) Lymph # (Auto) [place]t # (Auto) Eos # (Auto) Baso # (Auto) Abs Immat Gran (auto) Absolute Neuts (auto) Absolute Nucleated RBC Nucleated RBC % (auto) POC Std Base Excess -3 -3 POC O2 Sat (Calc) 99 99 POC ABG pO2 144 H 157 H POC ABG Total CO2 25 25 VBG pH VBG pCO2 VBG pO2 VBG HCO3 VBG O2 Saturation VBG Base Excess POC Capillary pH 7.28 L 7.33 L POC Capillary pCO2 50 H 44 POC Cap HCO3 (Calc) 24 23 POC Sodium 137 137 POC Potassium 5.0 5.4 H Anion Gap Estim Creat Clear Calc Estimated GFR POC Glucose 166 H 168 H Random Glucose Calcium Phosphorus Magnesium Total Bilirubin AST ALT Alkaline Phosphatase Total Protein Albumin Hold Green Top Blood Type O Positive Antibody Screen NEGATIVE Crossmatch See Detail 11/11/23 11/11/23 11/11/23 14:51 15:42 15:51 POC Hgb (Calc) POC Hct MCV 94.3 MCH 31.7 MCHC 33.6 RDW 14.3 Plt Count 172 D MPV 9.0 L Immature Gran % (Auto) 0.6 H Neut % (Auto) 88.3 H Lymph % (Auto) 4.2 L Knott % (Auto) 6.8 Eos % (Auto) 0.0 Baso % (Auto) 0.1 Lymph # (Auto) 0.7 L K[place]t # (Auto) 1.1 Eos # (Auto) 0.0 Baso # (Auto) 0.0 Abs Immat Gran (auto) 0.10 H Absolute Neuts (auto) 14.1 H Absolute Nucleated RBC 0.000 Nucleated RBC % (auto) 0.0 POC Std Base Excess POC O2 Sat (Calc) POC ABG pO2 POC ABG Total CO2 VBG pH 7.47 H VBG pCO2 30 VBG pO2 144 VBG HCO3 22 VBG O2 Saturation 100.0 VBG Base Excess -0.4 POC Capillary pH POC Capillary pCO2 POC Cap HCO3 (Calc) POC Sodium POC Potassium Anion Gap 13 Estim Creat Clear Calc 77.8 Estimated GFR > 60 POC Glucose Random Glucose 161 H Calcium 7.9 L Phosphorus 3.3 Magnesium 1.6 Total Bilirubin 4.5 H AST 75 H ALT 58 H Alkaline Phosphatase 64 Total Protein 4.8 L Albumin 2.8 L Hold Green Top See Note Blood Type Antibody Screen Crossmatch 11/12/23 11/12/23 05:36 05:37 POC Hgb (Calc) POC Hct MCV 94.1 MCH 32.1 MCHC 34.1 RDW 14.6 Plt Count 159 L MPV 9.1 L Immature Gran % (Auto) 0.5 H Neut % (Auto) 88.7 H Lymph % (Auto) 4.7 L Knott % (Auto) 6.0 Eos % (Auto) 0.0 Baso % (Auto) 0.1 Lymph # (Auto) 0.8 L [place] # (Auto) 1.0 Eos # (Auto) 0.0 Baso # (Auto) 0.0 Abs Immat Gran (auto) 0.08 H Absolute Neuts (auto) 14.6 H Absolute Nucleated RBC 0.000 Nucleated RBC % (auto) 0.0 POC Std Base Excess POC O2 Sat (Calc) POC ABG pO2 POC ABG Total CO2 VBG pH 7.45 H VBG pCO2 40 VBG pO2 35 VBG HCO3 28 H VBG O2 Saturation 62.0 VBG Base Excess 4.7 POC Capillary pH POC Capillary pCO2 POC Cap HCO3 (Calc) POC Sodium POC Potassium Anion Gap 12 Estim Creat Clear Calc 95.4 Estimated GFR > 60 POC Glucose Random Glucose 124 H Calcium 8.3 L Phosphorus 2.5 L Magnesium 1.9 Total Bilirubin 2.4 H AST 64 H ALT 48 H Alkaline Phosphatase 67 Total Protein 5.1 L Albumin 2.9 L Hold Green Top Blood Type Antibody Screen Crossmatch Procedures Date of Service Date of Service: 11/16/23 Progress Note: A&P Assessment and plan (1) Hematoma: Status: Acute Assessment and Plan: s/p laparotomy, control of bleeder, evac of hematoma Hg holding DONATO drain - bloody but decreasing, low amount stable VS follow Hg bilirubin down to 2.4 from 4.2 - likely from liver manipulation, retraction keep drain in place NGT in - if output low, will plan on removing, but anticipate ileus pain mgt will update Time Spent With Patient Time: Total time managing care of this patient today ____ minutes. Quality Stroke Does the patient have a stroke diagnosis?: No VTE Prior VTE?: No VTE Risk Level:: Medical - moderate - high VTE Device Contraindication: N/A - Device Ordered VTE Drug Contraindication: Treatment Not Indicated
--- NOTE | 2023-11-12 10:20 | HO.POSTANES ---
Post Anesthesia Evaluation Post Anesthesia Evaluation Date of Service: 11/12/23 Vital Signs: Vital Signs Temp Pulse Resp BP Pulse Ox O2 Del Method O2 Flow Rate 11/12/23 10:00 93 21 H 137/60 93 Nasal Cannula 2 11/12/23 09:00 98 F 93 17 147/52 H 93 Nasal Cannula 2 11/12/23 08:00 98.9 F 95 18 139/51 L 93 Nasal Cannula 2 11/12/23 07:00 89 16 151/52 H 94 Nasal Cannula 2 11/12/23 06:00 104 H 17 145/54 H 93 Room Air 11/12/23 05:00 93 16 158/56 H 94 Nasal Cannula 2 11/12/23 04:00 98.3 F 93 13 153/59 H 94 Nasal Cannula 2 11/12/23 03:00 86 15 149/52 H 93 Nasal Cannula 2 11/12/23 02:00 101 H 17 131/51 L 92 Nasal Cannula 2 11/12/23 01:00 98.5 F 96 17 133/46 L 93 Nasal Cannula 2 11/12/23 00:00 93 18 140/50 H 94 Nasal Cannula 2 11/11/23 23:00 94 18 123/46 L 93 Nasal Cannula 2 Anesthesia: General Endotracheal-GETA Mental Status: Awake Pain Control: Satisfactory Nausea/Vomiting: None Hydration: Adequate Anesthesia-Related Issues: No Anes. Related Issues
--- NOTE | 2023-11-12 14:05 | PC.NURSE ---
report to inpatient nurse verito. a line removed, reynolds removed, infiltrated ivs removed. pt moved with all belonings on tele back, vss. pt is alert oriented updated on plan of care.
--- NOTE | 2023-11-12 14:57 | PM.EVENT ---
Event Note Date of Service: 11/12/23 Event Note: transferred to [facility] this afternoon appears to have adequate pain control although a little uncomfortable NGT in [place] out DONATO drain - dark blood, nonbilious stable VS awake and alert pain mgt given incentive spirometry, instructed if unable to void - reinsert catheter at bedside Time Spent With Patient Time: Total time managing care of this patient today ____ minutes.
--- NOTE | 2023-11-12 15:56 | MHC.CM.PN ---
IMM 11/12/23, Pt's signed as pt. is still confused following surgery. She informed CM that Pt has to be able to walk upstairs to get into his home. CM will follow and assist with DC planning.
--- NOTE | 2023-11-12 17:27 | PC.NURSE ---
Pt. arrived to unit from ICU. Pt. with NGT in L nare to LWS. IVF infusing. Pt. due to void at 1999. [place] cath applied. updated at bedside.
[2023-11-13] VITALS (12 sets, daily range): BP systolic 142–180; BP diastolic 52–76; PULSE 71–102; RESP 17–20; TEMP 36.4–37.3; O2SAT 90–93
--- NOTE | 2023-11-13 04:41 | PC.NURSE ---
At approx 2000 pt noted to have increased PVCs on inspector watch parts. Not previous documented. Pt denies any chest pain, discomfort or palpitations. MD Delgado notified. STAT BMP and Mag level drawn and results to MD to review. No new orders at this time.
--- NOTE | 2023-11-13 07:42 | HO.PM.IMPN ---
Subjective Subjective Date of Service: 11/13/23 Interval History: seen and examined this morning follow up medical consultation patient reporting abd pain. productive cough x2 days, no sob, cp. NG tube in place with brown/black drainage no other complaints Review of Systems Review of Systems: Yes all other systems are reviewed and are negative Physical Exam Vital Signs: Vital Signs: Last Vital Signs Temp 97.8 F 11/13/23 04:00 Pulse 102 H 11/13/23 04:00 Resp 20 11/13/23 04:00 BP 148/72 H 11/13/23 04:00 Pulse Ox 91 L 11/13/23 04:00 O2 Del Method Nasal Cannula 11/13/23 04:00 O2 Flow Rate 2 11/13/23 04:00 Oxygen Flow Rate 2 11/12/23 15:00 BMI result Body Mass Index 33.4 Constitutional - Awake and fatigued, appears unwell, slightly clammy Eyes - PERRLA, EOMI Cardiovascular - S1S2, RRR, No edema Respiratory - Normal lung expansion, Normal respiratory effort, No respiratory distress, CTA bilaterally Extremities - no calf tenderness bilaterally, no swelling Skin - Warm/Dry Neurological - Alert & oriented x3 Psychological - Appropriate affect Objective Data Active Medications Acetaminophen (Ofirmev) 1,000 mg in 100 mls @ 400 mls/hr IV Q6H [facility] Last Infusion: 11/13/23 01:55 Dose: Infused Documented By: ISHAN Lactated Ringer's (Lr) 1,000 mls @ 80 mls/hr IVCONT .[id number] [facility] Last Admin: 11/13/23 05:40 Dose: 80 mls/hr Documented By: ISHAN Morphine Sulfate (Morphine Sulfate 2 Mg/Ml Cartridge) 2 mg IVPUSH Q2H PRN; Protocol PRN Reason: Pain, Severe (Pain Scale 7-10) Last Admin: 11/12/23 13:42 Dose: 2 mg Documented By: JULI Ondansetron HCl (Ondansetron Hcl 4 Mg/2 Ml Vial) 4 mg IVPUSH Q8H PRN PRN Reason: nausea Last Admin: 11/12/23 09:01 Dose: 4 mg Documented By: JULI Sodium Chloride (0.9 % Sodium Chloride Flush 3 Ml Syringe) 3 ml IVFLUSH QSHIFT [facility] Last Admin: 11/12/23 20:28 Dose: Not Given Documented By: ISHAN Non-Admin Reason: IV Running Labs 11/13/23 15:39 11/13/23 07:31 Labs: Laboratory Results - last 24 hr 11/12/23 11/12/23 16:09 20:13 Anion Gap 9 L Estim Creat Clear Calc 100.8 Estimated GFR > 60 POC Glucose 101 Random Glucose 101 Calcium 8.7 Magnesium 1.9 Assessment and Plan (1) Hematoma: Status: Acute Plan 73-year-old male with history of hypertension, hyperlipidemia, GERD, coronary artery disease s/p LEELA RCA 2007 admitted to General surgery s/p laparoscopic cholecystectomy for symptomatic gallstones. In discussion with patient and review of chart, syncopal episode seems consistent with vasovagal syncope given given pallor and diaphoresis likely in the setting of pain coupled with acute blood loss secondary to surgery given absence of other prodrome. Blood pressures have been stable in PACU, no arrhythmia noted on night monitor. Hgb 15.2 --> 12.3. Trop below detectable limits. Low suspicion for PE or ACS at this time. No focal neuro deficits. #Cholelithiasis s/p lap roosevelt with post operative hematoma s/p hematoma evacuation H/H trending down #Acute blood loss anemia -Hgb 10.9 --> 8.2 this am -Discussed with hematology/general surgery, transfuse 2 units FFP and 1 unit plt -Per general surgery, no intervention at this time, follow cbc #Acute pneumonia -?aspiration, cxr shows bilateraly patchy infiltrates -afebrile, WBC trending down -IV unasyn (initiated 11/13) #Vasovagal syncope likely due to above, no further episodes continue close monitoring #GUTIERREZ- resolved creatinine trending down getting IVF follow renal function #HTN -continue metoprolol -resume amlodipine. Continue holding lisinopril given gutierrez #HLD hold statin for now, resume on discharge #CAD -no anginal chest pain, trop below detectable limits, doubt acs -asa on hold for surgery, hematoma; continue BB #GERD -continue ppi Thank you for this consult. Will continue following along with you. Quality Stroke Does the patient have a stroke diagnosis?: No VTE Prior VTE?: No VTE Risk Level:: Medical - moderate - high VTE Device Contraindication: N/A - Device Ordered VTE Drug Contraindication: Treatment Not Indicated
--- NOTE | 2023-11-13 15:42 | PM.PNGS ---
Subjective Subjective Date of Service: 11/13/23 Interval history: pt feeling tired, awakens and talks well, still having pain but not as bad, passing some gas denies chest pain or sob Physical Exam Vital Signs: Vital Signs: Last Vital Signs Temp 97.9 F 11/13/23 15:32 Pulse 89 11/13/23 15:32 Resp 20 11/13/23 15:32 BP 143/71 H 11/13/23 15:32 Pulse Ox 92 11/13/23 15:32 O2 Del Method Nasal Cannula 11/13/23 15:32 O2 Flow Rate 2 11/13/23 15:32 Oxygen Flow Rate 2 11/13/23 14:12 BMI result Body Mass Index 33.4 Const: General: cooperative, no acute distress and tired appearing GI: Other: abdomen is distended , diffuse mild tenderness sharan drain - putting out bloody fluid - little thicker, no bile noted Objective Data Active Medications Amlodipine Besylate (Amlodipine Besylate 5 Mg Tablet) 5 mg PO BEDTIME [facility]; Protocol Acetaminophen (Ofirmev) 1,000 mg in 100 mls @ 400 mls/hr IV Q6H [facility] Last Infusion: 11/13/23 14:24 Dose: Infused Documented By: MANDIE Lactated Ringer's (Lr) 1,000 mls @ 80 mls/hr IVCONT .[id number] [facility] Last Admin: 11/13/23 05:40 Dose: 80 mls/hr Documented By: ISHAN Sodium Chloride (Ns) 100 mls @ 100 mls/hr IV ONCE ONE Stop: 11/13/23 16:30 Morphine Sulfate (Morphine Sulfate 2 Mg/Ml Cartridge) 2 mg IVPUSH Q2H PRN; Protocol PRN Reason: Pain, Severe (Pain Scale 7-10) Last Admin: 11/13/23 11:57 Dose: 2 mg Documented By: MANDIE Ondansetron HCl (Ondansetron Hcl 4 Mg/2 Ml Vial) 4 mg IVPUSH Q8H PRN PRN Reason: nausea Last Admin: 11/12/23 09:01 Dose: 4 mg Documented By: JULI Pantoprazole Sodium (Pantoprazole Sodium 40 Mg/10 Ml Vial) 40 mg IVPUSH BID@0630,1630 [facility] Sodium Chloride (0.9 % Sodium Chloride Flush 3 Ml Syringe) 3 ml IVFLUSH QSHIFT [facility] Last Admin: 11/13/23 14:08 Dose: 3 ml Documented By: MANDIE Labs 11/13/23 07:31 11/13/23 07:31 Labs: Laboratory Results - last 24 hr 11/11/23 11/12/23 11/12/23 06:02 16:09 20:13 MCV MCH MCHC RDW Plt Count MPV Immature Gran % (Auto) Neut % (Auto) Lymph % (Auto) [place] % (Auto) Eos % (Auto) Baso % (Auto) Lymph # (Auto) [place] # (Auto) Eos # (Auto) Baso # (Auto) Abs Immat Gran (auto) Absolute Neuts (auto) Absolute Nucleated RBC Nucleated RBC % (auto) Anion Gap 9 L Estim Creat Clear Calc 100.8 Estimated GFR > 60 POC Glucose 101 Random Glucose 101 Calcium 8.7 Phosphorus Magnesium 1.9 Albumin Gastric Occult Blood Blood Type O Positive Antibody Screen NEGATIVE Crossmatch See Detail 11/13/23 11/13/23 07:31 14:06 MCV 94.0 MCH 32.9 MCHC 35.0 RDW 14.4 Plt Count 144 L MPV 9.8 Immature Gran % (Auto) 0.7 H Neut % (Auto) 87.9 H Lymph % (Auto) 4.9 L [place] % (Auto) 6.1 Eos % (Auto) 0.2 Baso % (Auto) 0.2 Lymph # (Auto) 0.6 L [place] # (Auto) 0.8 Eos # (Auto) 0.0 Baso # (Auto) 0.0 Abs Immat Gran (auto) 0.09 H Absolute Neuts (auto) 11.5 H Absolute Nucleated RBC 0.000 Nucleated RBC % (auto) 0.0 Anion Gap 12 Estim Creat Clear Calc 108.6 Estimated GFR > 60 POC Glucose Random Glucose 89 Calcium 8.9 Phosphorus 2.5 L Magnesium 1.9 Albumin 3.5 Gastric Occult Blood POSITIVE Blood Type Antibody Screen Crossmatch Procedures Date of Service Date of Service: 11/13/23 Progress Note: A&P Assessment and plan (1) Hematoma: Status: Acute Assessment and Plan: Pt is POD#2 sp re-exploration for hematoma and bleeding from original lap roosevelt 3 days ago - at the re-exxploration lots of oozing but not much in regards to a specific bleeder. Pt has sharan drain in place at liver bed and fluid is bloody 130 cc out since yesterday. Hgb down to 8 from 10 yesterday but hemodynamics still good and pt making good urine output. ng aspirate heme positive - on iv PPI- but not at all grossly bloody At this point pt is stable but concern for continued slow ooze - will recheck labs - no meds with heparin or anticoagulation meds, on PPI and pneumoboots, pt with hx of cardiac issues so will keep hgb over 7/8 - set up for transfusion will discuss with hematology any potential to increase clotting and get control of any bleeding if continues to drop despite transfusion and supportive care may need to consider interventional radiology angiogram with embolization of any bleeding source. doubt re-exploration would show anything significant to control at this point and stress of surgery is significant discussed with pt who understands. med team notified and we are working on steps of care and then will discuss with hematology. Time Spent With Patient Time: Total time managing care of this patient today ____ minutes. Quality Stroke Does the patient have a stroke diagnosis?: No VTE Prior VTE?: No VTE Risk Level:: Medical - moderate - high VTE Device Contraindication: N/A - Device Ordered VTE Drug Contraindication: Treatment Not Indicated
[2023-11-13 16:07] LABS: INTERNATIONAL NORM RATIO 1.2 (0.9-1.1); Prothrombin Time 14.6 SEC (11.1-13.3)
[2023-11-13 16:10] LABS: Partial Thromboplastin Time 29.1 SEC (26.0-36.4)
[2023-11-14] VITALS (13 sets, daily range): BP systolic 140–180; BP diastolic 63–80; PULSE 83–99; RESP 18–22; TEMP 36.6–37.7; O2SAT 92–95
--- NOTE | 2023-11-14 09:48 | HO.PM.IMPN ---
Subjective Subjective Date of Service: 11/14/23 Interval History: seen and examined this morning follow up medical consultation continues with productive cough, but improved. transfused 1 unit platelets, 2 units ffp last night. no overnight events Review of Systems Review of Systems: Yes all other systems are reviewed and are negative Physical Exam Vital Signs: Vital Signs: Last Vital Signs Temp 99.2 F 11/14/23 07:40 Pulse 99 11/14/23 08:53 Resp 22 H 11/14/23 07:40 BP 170/79 H 11/14/23 08:53 Pulse Ox 92 11/14/23 07:40 O2 Del Method Nasal Cannula 11/14/23 07:40 O2 Flow Rate 4 11/14/23 07:40 Oxygen Flow Rate 2 11/13/23 14:12 BMI result Body Mass Index 33.4 Constitutional - Awake and fatigued, no distress Eyes - PERRLA, EOMI Cardiovascular - S1S2, RRR, No edema Respiratory - Normal lung expansion, Normal respiratory effort, No respiratory distress, CTA bilaterally Extremities - no calf tenderness bilaterally, no swelling Skin - Warm/Dry Neurological - Alert & oriented x3 Psychological - Appropriate affect Objective Data Active Medications Amlodipine Besylate (Amlodipine Besylate 5 Mg Tablet) 5 mg PO BEDTIME [facility]; Protocol Last Admin: 11/13/23 21:50 Dose: 5 mg Documented By: MANE Lactated Ringer's (Lr) 1,000 mls @ 80 mls/hr IVCONT .[id number] [facility] Last Admin: 11/14/23 05:53 Dose: 80 mls/hr Documented By: MANE Ampicillin Sodium/Sulbactam (Sodium 3 gm/ Sodium Chloride) 100 mls @ 200 mls/hr IV Q6H [facility] Last Infusion: 11/14/23 06:22 Dose: Infused Documented By: MANE Losartan Potassium (Losartan Potassium 50 Mg Tablet) 100 mg PO BEDTIME [facility]; Protocol Morphine Sulfate (Morphine Sulfate 2 Mg/Ml Cartridge) 2 mg IVPUSH Q2H PRN; Protocol PRN Reason: Pain, Severe (Pain Scale 7-10) Last Admin: 11/14/23 07:40 Dose: 2 mg Documented By: FERNANDA Ondansetron HCl (Ondansetron Hcl 4 Mg/2 Ml Vial) 4 mg IVPUSH Q8H PRN PRN Reason: nausea Last Admin: 11/14/23 01:57 Dose: 4 mg Documented By: MANE Pantoprazole Sodium (Pantoprazole Sodium 40 Mg/10 Ml Vial) 40 mg IVPUSH BID@0630,1630 [facility] Last Admin: 11/14/23 05:46 Dose: 40 mg Documented By: MANE Sodium Chloride (0.9 % Sodium Chloride Flush 3 Ml Syringe) 3 ml IVFLUSH QSHIFT [facility] Last Admin: 11/14/23 07:40 Dose: 3 ml Documented By: MARLENAAA Labs 11/14/23 09:01 11/14/23 09:01 Labs: Laboratory Results - last 24 hr 11/11/23 11/13/23 11/13/23 06:02 14:06 15:39 MCV MCH MCHC RDW Plt Count MPV Absolute Nucleated RBC Nucleated RBC % (auto) PT 14.6 H INR 1.2 H APTT 29.1 Anion Gap Estim Creat Clear Calc Estimated GFR Random Glucose Calcium Gastric Occult Blood POSITIVE Blood Type O Positive Antibody Screen NEGATIVE Crossmatch See Detail 11/14/23 09:01 MCV 93.1 MCH 32.3 MCHC 34.6 RDW 13.9 Plt Count 199 D MPV 9.6 Absolute Nucleated RBC 0.000 Nucleated RBC % (auto) 0.0 PT INR APTT Anion Gap 12 Estim Creat Clear Calc 112.0 Estimated GFR > 60 Random Glucose 113 Calcium 8.8 Gastric Occult Blood Blood Type Antibody Screen Crossmatch Assessment and Plan (1) Hematoma: Status: Acute (2) Aspiration pneumonia: Status: Acute (3) Acute blood loss anemia: Status: Acute Plan 73-year-old male with history of hypertension, hyperlipidemia, GERD, coronary artery disease s/p LEELA RCA 2007 admitted to General surgery s/p laparoscopic cholecystectomy for symptomatic gallstones. In discussion with patient and review of chart, syncopal episode seems consistent with vasovagal syncope given given pallor and diaphoresis likely in the setting of pain coupled with acute blood loss secondary to surgery given absence of other prodrome. Blood pressures have been stable in PACU, no arrhythmia noted on conveyor monitor. Hgb 15.2 --> 12.3. Trop below detectable limits. Low suspicion for PE or ACS at this time. No focal neuro deficits. #Cholelithiasis s/p lap roosevelt with post operative hematoma s/p hematoma evacuation H/H trending down #Acute blood loss anemia -Hgb 10.9 --> 8.2 --> 8.0 this am. Keep hgb above 8.0 per hematology -transfused 1 unit platelets, 2 units ffp overnight per hematology -Per general surgery, no intervention at this time, follow cbc #Acute pneumonia -?aspiration, cxr shows bilateraly patchy infiltrates -afebrile, WBC trending down -IV unasyn (initiated 11/13) #Vasovagal syncope likely due to above, no further episodes continue close monitoring #GUTIERREZ- resolved creatinine trending down getting IVF follow renal function #HTN -continue metoprolol -resume amlodipine. Continue holding lisinopril given gutierrez #HLD hold statin for now, resume on discharge #CAD -no anginal chest pain, trop below detectable limits, doubt acs -asa on hold for surgery, hematoma; continue BB #GERD -continue ppi Thank you for this consult. Will continue following along with you. Quality Stroke Does the patient have a stroke diagnosis?: No VTE Prior VTE?: No VTE Risk Level:: Medical - moderate - high VTE Device Contraindication: N/A - Device Ordered VTE Drug Contraindication: Treatment Not Indicated
--- NOTE | 2023-11-14 17:34 | PM.PNGS ---
Subjective Subjective Date of Service: 11/14/23 Interval history: Patient is a little sleepy this afternoon but doing overall better than yesterday. Says pain is improved has been passing some gas. Says that he is a little hungry. Physical Exam Vital Signs: Vital Signs: Last Vital Signs Temp 98.7 F 11/14/23 15:40 Pulse 92 11/14/23 15:40 Resp 20 11/14/23 15:40 BP 160/71 H 11/14/23 15:40 Pulse Ox 94 11/14/23 15:40 O2 Del Method Nasal Cannula 11/14/23 15:40 O2 Flow Rate 4 11/14/23 15:40 Oxygen Flow Rate 2 11/13/23 14:12 BMI result Body Mass Index 33.4 Const: General: cooperative, healthy appearing and comfortable HEENT: Head: Yes normal to inspection Resp: Effort & Inspection: normal respiratory effort Auscultation: clear to auscultation bilaterally Cardio: Rate: regular rate Rhythm: regular rhythm GI: Other: Abdomen is soft little distended good bowel sounds a little tender diffusely but no guarding no rebound no peritoneal signs DONATO drain intact in place with sanguinous fluid that is a little thinner than yesterday 105 cc from the DONATO drain Objective Data Active Medications Amlodipine Besylate (Amlodipine Besylate 5 Mg Tablet) 5 mg PO BEDTIME [facility]; Protocol Last Admin: 11/13/23 21:50 Dose: 5 mg Documented By: MANE Ampicillin Sodium/Sulbactam (Sodium 3 gm/ Sodium Chloride) 100 mls @ 200 mls/hr IV Q6H [facility] Last Admin: 11/14/23 17:15 Dose: 200 mls/hr Documented By: FERNANDA Losartan Potassium (Losartan Potassium 50 Mg Tablet) 100 mg PO BEDTIME [facility]; Protocol Morphine Sulfate (Morphine Sulfate 2 Mg/Ml Cartridge) 2 mg IVPUSH Q2H PRN; Protocol PRN Reason: Pain, Severe (Pain Scale 7-10) Last Admin: 11/14/23 17:15 Dose: 2 mg Documented By: FERNANDA Ondansetron HCl (Ondansetron Hcl 4 Mg/2 Ml Vial) 4 mg IVPUSH Q8H PRN PRN Reason: nausea Last Admin: 11/14/23 01:57 Dose: 4 mg Documented By: MANE Pantoprazole Sodium (Pantoprazole Sodium 40 Mg/10 Ml Vial) 40 mg IVPUSH BID@0630,1630 [facility] Last Admin: 11/14/23 15:57 Dose: 40 mg Documented By: FERNANDA Sodium Chloride (0.9 % Sodium Chloride Flush 3 Ml Syringe) 3 ml IVFLUSH QSHIFT [facility] Last Admin: 11/14/23 15:22 Dose: 3 ml Documented By: FERNANDA Labs 11/14/23 09:01 11/14/23 09:01 Labs: Laboratory Results - last 24 hr 11/11/23 11/14/23 06:02 09:01 MCV 93.1 MCH 32.3 MCHC 34.6 RDW 13.9 Plt Count 199 D MPV 9.6 Absolute Nucleated RBC 0.000 Nucleated RBC % (auto) 0.0 Anion Gap 12 Estim Creat Clear Calc 112.0 Estimated GFR > 60 Random Glucose 113 Calcium 8.8 Blood Type O Positive Antibody Screen NEGATIVE Crossmatch See Detail Procedures Date of Service Date of Service: 11/14/23 Progress Note: A&P Assessment and plan (1) S/P laparoscopic cholecystectomy: Status: Acute Assessment and Plan: patient is a 73-year-old male who is status post laparoscopic cholecystectomy with complications of postop bleeding and hematoma. He had a re-exploration with evacuation of the hematoma and hemostasis of some generalized oozing area and initially was good but yesterday he had a significant drop in his hemoglobin and his INR was a little elevated. Patient was putting bloody drainage out through his DONATO drain. We discussed with Hematology and as his hemoglobin hematocrit were stable from the morning to the afternoon it was decided to just treat with FFP and platelets and hold off on any packed red blood cells unless something changed and get blood work this morning. Today repeat blood work is about the same patient feels better DONATO stills has bloody drainage coming from it but the belly is less tender and good bowel sounds. antibiotics have been started for questionable pneumonia with lung changes on chest x-ray At this point our plan will be to clamp NG tube and allow sips of liquids. Check blood work tomorrow as well as coags. Follow DONATO drain output. If doing well from the NG tube may consider removal and start a diet. Patient's is very frustrated with his complication and course but we have had extensive discussions updating her with the plan yesterday as well as today by telephone. Will have professor of social work mental health case manager talk to her tomorrow as she is adamant about having patient go to rehab before he returns home Time Spent With Patient Time: Total time managing care of this patient today ____ minutes. Quality Stroke Does the patient have a stroke diagnosis?: No VTE Prior VTE?: No VTE Risk Level:: Medical - moderate - high VTE Device Contraindication: N/A - Device Ordered VTE Drug Contraindication: Treatment Not Indicated
[2023-11-14] MEDS: Losartan Potassium 50 MG TABLET 100 MG PO (20:57)
[2023-11-15] VITALS (8 sets, daily range): BP systolic 131–170; BP diastolic 71–84; PULSE 82–168; RESP 17–20; TEMP 37.1–37.5; O2SAT 92–96
--- NOTE | 2023-11-15 07:00 | CA_ITS ---
Transthoracic Echocardiogram Patient (Last, First, Middle): Darrick Ty E Gender: Male Date of : 1950 Age: 73 Procedure Date: 11/15/2023 Procedure Type: Transthoracic Echocardiogram Location: [facility] Height: 167.64 cm Weight: 93.9 kg BSA: 2.03 m2 Heart Rate: bpm BP: 131 / 79 mmHg Theater Projectionist: CHARMAINE Referring MD: Cata BAI Offal Separator: Guevara Arzola MD Symptoms: new onset afib, post-op Study Quality: Fair, Off axis apical views ECG Rhythm: Sinus with extra beats Conclusions: - 1. Normal LV ejection fraction of 55-60% with impaired relaxation filling pattern 2. Mildly dilated left atrium 3. No significant abnormality of cardiac valvular Doppler 4. RV systolic pressure could not be determined 5. No gross pericardial effusion Findings Left Ventricle Normal left ventricular size and systolic function. There is mildly increased left ventricular wall thickness. The visually estimated ejection fraction is between 55-60%. Spectral Doppler is indicative of an impaired relaxation filling pattern. E/E prime ratio is between 8 and 15 consistent with indeterminate filling pressures. Right Ventricle The right ventricle was not well visualized. Atria The left atrium is mildly dilated. Interatrial shunt cannot be excluded. The right atrium is likely dilated. Aortic Valve Normal aortic valve structure and function. There is no aortic valve stenosis. There is no aortic valve regurgitation. Mitral Valve There is mild anterior and posterior mitral leaflet thickening. There is trace mitral valve regurgitation. There is no mitral valve stenosis. Pulmonic Valve The pulmonic valve is likely normal. There is trace to mild pulmonic valve regurgitation. Tricuspid Valve Likely normal tricuspid valve structure and function. There is mild tricuspid valve regurgitation. Indeterminate right atrial pressure. Great Vessels The pulmonary artery was not well visualized. Moderate plaque is seen in the sino tubular ridge. Venous The inferior vena cava was not well visualized. Pericardium/Pleural There is no evidence of pericardial effusion. Measurements 2D Linear Measurements IVSd: 1.29 0.6-0.9/0.6-1.0 cm LVIDd: 4.41 3.9-5.3/4.2-5.9 cm LVIDd Index: 2.17 2.4-3.2/2.2-3.1 cm/m2 LVIDs: 2.72 2.0-3.6 cm LVPWd: 1.28 0.7-1.1 cm LA Diam: 3.20 2.7-3.8/3.0-4.0 cm LAIDs Index: 1.58 1.5-2.3 cm/m2 LV Mass: 264.47 67-162/88-224 g LV Mass Index: 130.28 43-95/49-115 g/m2 LVOT Diam: 2.30 3.0+(-)1.3 cm Mitral Valve MV Pk E: 0.46 MV PK A: 0.58 MV Decel Time: 168.00 E/A: 0.80 E'Lateral: 4.79 E'Medial: 5.66 E/E' Med: 8.20 E/E' Lat: 9.70 PHT: 49.00 MVA PHT: 4.49 Decel Henry: 2.75 Aortic Valve AoV Pk Luis F: 1.32 AoV Mn Luis F: 0.91 AoV VTI: 0.26 AoV Pk Grad: 7.00 Aov Mn Grad: 4.00 DEBORAH Cont.VTI: 3.55 LVOT LVOT Pk Luis F: 0.89 LVOT Mn Luis F: 0.60 LVOT VTI: 0.22 LVOT Pk Grad: 3.00 LVOT Mn Grad: 2.00 LVOT Diam: 2.30 LVOT Area: 4.15 Diastolic Function MV Pk E: 0.46 MV Pk A: 0.58 E/A: 0.80 E'Medial: 5.66 E/E' Med: 8.20 E' Laterial: 4.79 E/E' Lat: 9.70 Right Ventricle TAPSE (mm): 34.30 TVS' Luis F: 25.80 Tricuspid Valve TR Pk Luis F: 2.75 TR Pk Grad: 30.00 Great Vessels Aorta Sinus of Valsalva: 3.40 2.0-3.5 cm Ao Asc: 3.20 2.1-3.4 cm Pulmonary Valve PV Pk Luis F: 1.34 Peak PV Grad: 7.00 Updated in Other Vendor System with Status of Final Guevara Arzola MD electronically signed on 11/15/2023 3:06:27 PM with status of Final
--- NOTE | 2023-11-15 08:00 | P.PNGS_ITS ---
Subjective Subjective Date of Service: 11/16/23 Interval history: States that the NG tube bothers him with throat pain and nose pain as per nursing staff, no events overnight DONATO in place - output decreasing NG tube output low says he was out of bed to the recliner for half a day yesterday Physical Exam 2 Vital Signs: Vital Signs: Last Vital Signs Temp 98.8 F 11/15/23 07:58 Pulse 82 11/15/23 07:58 Resp 20 11/15/23 07:58 BP 168/84 H 11/15/23 07:58 Pulse Ox 96 11/15/23 07:58 O2 Del Method Nasal Cannula 11/15/23 07:58 O2 Flow Rate 4 11/15/23 07:58 Oxygen Flow Rate 2 11/13/23 14:12 BMI result Body Mass Index 33.4 Const: General: no acute distress Eyes: Other: Sclerae nonicteric Resp: Effort & Inspection: normal respiratory effort Cardio: Rate: regular rate GI: Other: DONATO with dark blood Palpation (GI): Soft to palpation Objective Data Active Medications Amlodipine Besylate (Amlodipine Besylate 5 Mg Tablet) 5 mg PO BEDTIME [facility]; Protocol Last Admin: 11/14/23 20:56 Dose: 5 mg Documented By: ODESSA Ampicillin Sodium/Sulbactam (Sodium 3 gm/ Sodium Chloride) 100 mls @ 200 mls/hr IV Q6H [facility] Last Infusion: 11/15/23 06:24 Dose: Infused Documented By: ODESSA Lactated Ringer's (Lr) 1,000 mls @ 80 mls/hr IVCONT .[id number] [facility] Last Admin: 11/15/23 05:26 Dose: 80 mls/hr Documented By: ODESSA Losartan Potassium (Losartan Potassium 50 Mg Tablet) 100 mg PO BEDTIME [facility]; Protocol Last Admin: 11/14/23 20:57 Dose: 100 mg Documented By: ODESSA Morphine Sulfate (Morphine Sulfate 2 Mg/Ml Cartridge) 2 mg IVPUSH Q2H PRN; Protocol PRN Reason: Pain, Severe (Pain Scale 7-10) Last Admin: 11/15/23 05:22 Dose: 2 mg Documented By: ODESSA Ondansetron HCl (Ondansetron Hcl 4 Mg/2 Ml Vial) 4 mg IVPUSH Q8H PRN PRN Reason: nausea Last Admin: 11/14/23 01:57 Dose: 4 mg Documented By: MANE Pantoprazole Sodium (Pantoprazole Sodium 40 Mg/10 Ml Vial) 40 mg IVPUSH BID@0630,1630 [facility] Last Admin: 11/15/23 05:40 Dose: 40 mg Documented By: ODESSA Sodium Chloride (0.9 % Sodium Chloride Flush 3 Ml Syringe) 3 ml IVFLUSH QSHIFT [facility] Last Admin: 11/14/23 20:57 Dose: 3 ml Documented By: ODESSA Labs 11/16/23 06:10 11/16/23 06:10 Labs: Laboratory Results - last 24 hr 11/11/23 11/14/23 11/15/23 06:02 09:01 06:25 MCV 93.1 93.2 MCH 32.3 32.0 MCHC 34.6 34.3 RDW 13.9 13.7 Plt Count 199 D 246 MPV 9.6 9.3 L Immature Gran % (Auto) 0.8 H Neut % (Auto) 79.5 H Lymph % (Auto) 7.3 L [place] % (Auto) 9.9 Eos % (Auto) 2.3 Baso % (Auto) 0.2 Lymph # (Auto) 0.8 L [place] # (Auto) 1.1 Eos # (Auto) 0.2 Baso # (Auto) 0.0 Abs Immat Gran (auto) 0.08 H Absolute Neuts (auto) 8.5 H Absolute Nucleated RBC 0.000 0.000 Nucleated RBC % (auto) 0.0 0.0 Anion Gap 12 Estim Creat Clear Calc 112.0 Estimated GFR > 60 Random Glucose 113 Calcium 8.8 Blood Type O Positive Antibody Screen NEGATIVE Crossmatch See Detail Procedures Date of Service Date of Service: 11/16/23 Progress Note: A&P Assessment and plan (1) Hematoma: Status: Acute Assessment and Plan: okay to DC NG tube hemoglobin is stable out of bed to chair Possible pneumonia chest x-ray -started on antibiotics Instructed on continuing with incentive spirometry he states he is a lot more comfortable today keep DONATO in place appreciate Hospitalist ffup updated - reviewed events of the weekend with her, questions answered Time Spent With Patient Time: Total time managing care of this patient today ____ minutes. Quality Stroke Does the patient have a stroke diagnosis?: No VTE Prior VTE?: No VTE Risk Level:: Medical - moderate - high VTE Device Contraindication: N/A - Device Ordered VTE Drug Contraindication: Treatment Not Indicated
--- NOTE | 2023-11-15 10:16 | PC.NURSE ---
Per Surgical MD NG tube to be removed. Tube removed at 0930, patient tolerated well.
--- NOTE | 2023-11-15 10:30 | HO.PM.IMPN ---
Subjective Subjective Date of Service: 11/15/23 Interval History: seen and examined this morning follow up medical consultation Feeling slightly better. No cough, sob, cp. Afebrile. Blood pressures remain elevated Review of Systems Review of Systems: Yes all other systems are reviewed and are negative Physical Exam Vital Signs: Vital Signs: Last Vital Signs Temp 98.8 F 11/15/23 07:58 Pulse 82 11/15/23 07:58 Resp 20 11/15/23 07:58 BP 168/84 H 11/15/23 07:58 Pulse Ox 96 11/15/23 07:58 O2 Del Method Nasal Cannula 11/15/23 07:58 O2 Flow Rate 4 11/15/23 07:58 Oxygen Flow Rate 2 11/13/23 14:12 BMI result Body Mass Index 33.4 Constitutional - Awake and fatigued, No apparent distress Eyes - PERRLA, EOMI Cardiovascular - S1S2, RRR, No edema Respiratory - Normal lung expansion, Normal respiratory effort, No respiratory distress, CTA bilaterally Extremities - no calf tenderness bilaterally, no swelling Skin - Warm/Dry Neurological - Alert & oriented x3 Psychological - Appropriate affect Objective Data Active Medications Amlodipine Besylate (Amlodipine Besylate 5 Mg Tablet) 5 mg PO BEDTIME [facility]; Protocol Last Admin: 11/14/23 20:56 Dose: 5 mg Documented By: ODESSA Ampicillin Sodium/Sulbactam (Sodium 3 gm/ Sodium Chloride) 100 mls @ 200 mls/hr IV Q6H [facility] Last Infusion: 11/15/23 06:24 Dose: Infused Documented By: ODESSA Lactated Ringer's (Lr) 1,000 mls @ 80 mls/hr IVCONT .[id number] [facility] Last Admin: 11/15/23 05:26 Dose: 80 mls/hr Documented By: ODESSA Losartan Potassium (Losartan Potassium 50 Mg Tablet) 100 mg PO BEDTIME [facility]; Protocol Last Admin: 11/14/23 20:57 Dose: 100 mg Documented By: ODESSA Morphine Sulfate (Morphine Sulfate 2 Mg/Ml Cartridge) 2 mg IVPUSH Q2H PRN; Protocol PRN Reason: Pain, Severe (Pain Scale 7-10) Last Admin: 11/15/23 05:22 Dose: 2 mg Documented By: ODESSA Ondansetron HCl (Ondansetron Hcl 4 Mg/2 Ml Vial) 4 mg IVPUSH Q8H PRN PRN Reason: nausea Last Admin: 11/14/23 01:57 Dose: 4 mg Documented By: MANE Pantoprazole Sodium (Pantoprazole Sodium 40 Mg/10 Ml Vial) 40 mg IVPUSH BID@0630,1630 [facility] Last Admin: 11/15/23 05:40 Dose: 40 mg Documented By: ODESSA Sodium Chloride (0.9 % Sodium Chloride Flush 3 Ml Syringe) 3 ml IVFLUSH QSHIFT [facility] Last Admin: 11/14/23 20:57 Dose: 3 ml Documented By: ODESSA Labs 11/15/23 06:25 11/14/23 09:01 Labs: Laboratory Results - last 24 hr 11/15/23 06:25 MCV 93.2 MCH 32.0 MCHC 34.3 RDW 13.7 Plt Count 246 MPV 9.3 L Immature Gran % (Auto) 0.8 H Neut % (Auto) 79.5 H Lymph % (Auto) 7.3 L [place] % (Auto) 9.9 Eos % (Auto) 2.3 Baso % (Auto) 0.2 Lymph # (Auto) 0.8 L [place] # (Auto) 1.1 Eos # (Auto) 0.2 Baso # (Auto) 0.0 Abs Immat Gran (auto) 0.08 H Absolute Neuts (auto) 8.5 H Absolute Nucleated RBC 0.000 Nucleated RBC % (auto) 0.0 Assessment and Plan (1) Hematoma: Status: Acute (2) Aspiration pneumonia: Status: Acute (3) Acute blood loss anemia: Status: Acute Plan 73-year-old male with history of hypertension, hyperlipidemia, GERD, coronary artery disease s/p LEELA 2007 admitted to General surgery s/p laparoscopic cholecystectomy for symptomatic gallstones. In discussion with patient and review of chart, syncopal episode seems consistent with vasovagal syncope given given pallor and diaphoresis likely in the setting of pain coupled with acute blood loss secondary to surgery given absence of other prodrome. Blood pressures have been stable in PACU, no arrhythmia noted on satellite project site monitor. Hgb 15.2 --> 12.3. Trop below detectable limits. Low suspicion for PE or ACS at this time. No focal neuro deficits. #Cholelithiasis s/p lap [facility] with post operative hematoma s/p hematoma evacuation H/H improving #Acute blood loss anemia -H/H improved to 9.4/27.4% -transfused 1 unit platelets, 2 units ffp 11/13 per hematology -Per general surgery, no intervention at this time, follow cbc #Acute pneumonia, likely aspiration -cxr shows bilaterally patchy infiltrates -afebrile, WBC trending down -IV unasyn (initiated 11/13), transition to augmentin once NG tube dc'd #Vasovagal syncope likely due to above, no further episodes continue close monitoring #GUTIERREZ- resolved creatinine trending down getting IVF follow renal function #HTN- bp elevated -continue metoprolol, amlodpine 5mg bedtime, losartan 100mg bedtime -add amlodipine 5mg daily #HLD hold statin for now, resume on discharge #CAD -no anginal chest pain, trop below detectable limits, doubt acs -asa on hold for surgery, hematoma; continue BB #GERD -continue ppi Thank you for this consult. Will continue following along with you. Quality Stroke Does the patient have a stroke diagnosis?: No VTE Prior VTE?: No VTE Risk Level:: Medical - moderate - high VTE Device Contraindication: N/A - Device Ordered VTE Drug Contraindication: Treatment Not Indicated
--- NOTE | 2023-11-15 11:44 | MHC.CM.PN ---
CM met with pt. and his today at 's request. She wanted to clarify that she is able to care for her at home, and that he does not want to go to STR. She said she wants him to be able to eat, and there are 5 steps to get into the house. She has arranged for him to stay on the first floor, there is a bedroom and full bathroom there. They are both amenable to VNA services if it is recommended upon DC. CM to follow and assist with DC plan.
--- NOTE | 2023-11-15 12:16 | ECG_ITS ---
Test Reason : TACHYCARDIA Blood Pressure : / mmHG Vent. Rate : 166 BPM Atrial Rate : 153 BPM P-R Int : 000 ms QRS Dur : 106 ms QT Int : 316 ms P-R-T Axes : 000 007 182 degrees QTc Int : 525 ms Atrial fibrillation with rapid ventricular response Low voltage QRS Septal infarct (cited on or before 13-OCT-2023) ST & T wave abnormality, consider lateral ischemia Abnormal ECG When compared with ECG of 10-NOV-2023 21:12, Atrial fibrillation with rapid ventricular response has replaced Sinus tachycardia Questionable change in initial forces of Anterior leads T wave inversion now evident in Lateral leads Referred By: Mark Wright Electronically Signed By:LEONARD NORWOOD MD
[2023-11-15] MEDS: dilTIAZem HCL 125 MG in 0.9 % Sodium Chloride 100 ML 10 MG IVCONT (12:40)
[2023-11-15 12:43] LABS: Glucose, Whole Blood 113 mg/dL (60-115)
--- NOTE | 2023-11-15 12:55 | PM.EVENT ---
Event Note Date of Service: 11/15/23 Event Note: Rapid response called due to rapid HR in 180s. Pt resting in bed, slightly diaphoretic. Denies shortness of breath or chest pain. No lightheadedness or palpitations. helicopter technician shows atrial fibrillation with rapid ventricular rate. No hypotension. BP 170/81 prior to medications administration. He does not have known atrial fibrillation. Given diltiazem 10 mg x 1, lopressor 5mg x 1 wiht HR still 130-170s. Repeat BP 131/79. Started on cardizem drip per protocol. Pt 92% on 4L supplemental O2, slightly decreased from 96% on 4L O2. Continue continuous tele monitoring. Repeat CBC. Check BMP, magnesium level. CTA chest ordered. Cardiology consult. Surgeon currently in ED but has been notified. Discussed with patient's , Charlene. Time Spent With Patient Time: Total time managing care of this patient today ____ minutes.
--- NOTE | 2023-11-15 13:19 | PM.EVENT ---
Event Note Date of Service: 11/16/23 Event Note: had an episode of diaphoresis and tachycardia HR was in the 170's, in afib now down to 90's he looks comfortable, alert and engaging in conversation abd soft as per Hospitalist, to undergo CT angiogran of chest pt in good mood Charlene has been updated Time Spent With Patient Time: Total time managing care of this patient today ____ minutes.
[2023-11-15 13:49] LABS: Anion Gap 18 (12-20); Blood Urea Nitrogen 15 mg/dL (9-16); Calcium 9.1 mg/dL (8.4-10.2); Carbon Dioxide 24 mmol/L (22-29); Chloride 102 mmol/L (96-108); Creatinine Clr Calc Pharmacy 108.6; Estimated Glomerular Filt Rate > 60; Glucose Random 124 mg/dL (60-115); Magnesium 1.9 mg/dL (1.6-2.6); Potassium 3.8 mmol/L (3.3-5.1); Sodium 140 mmol/L (135-145)
--- NOTE | 2023-11-15 14:03 | PC.NURSE ---
Patient HR maintaining 160-170's on tele, pt asymptomatic. Pt sitting up in bed and diaphoretic. Unable to get ahold of surgical MD assigned to patient, rapid response called by primary nurse. EKG obtained - appears afib rvr per MD - Cardizem 10mg IVP administered at 1234 w/ no effect. Lopressor 5mg IVP administered at 1239 w/ no effect. Cardizem gtt started at 10mg/hr at 1240. Patient remained asymptomatic. Heart rate now bouncing between 90's and lo 100's. [ End ]
--- NOTE | 2023-11-15 15:14 | P.CDIM_ITS ---
PROVIDER RESPONSE TEXT: To clarify, the appropriate diagnosis supported by the clinical indicators: Acute blood loss anemia QUERY TEXT: PHYSICIAN'S DOCUMENTATION REQUEST Date of Query: 11/12/2023 12:11 PM EST Patient Name: Darrick Ty Admit Date: 11/10/2023 Dear Ismael Dutta, A review of the medical record indicates additional documentation may be needed. Please review below and update the documentation accordingly. Clinical Indicators: Hospitalist business sales consultant note 1/ - Diaphoresis likely in the setting of pain and coupled with acute bl ood loss secondary to surgery. Transfused 1 unit PRBC BP 89/41 HGB 9.3 HCT 27.3 Surgery note 11/11 - c/o CT reviewed - c/w hematoma around the liver Surgery note 11/11 - Finished transfusion of 1 unit of packed RBC, BP improved but still tachycardic. Based on the above, could you clarify which of the following noted acute blood loss: Acute blood loss anemia Acute posthemorrhagic anemia Other Other (explain) Clinically unable to determine (explain) Thank you, Gabriela Shah, CCS, CDIS Use of terms such as suspected, likely, concern for, or probable (associated with a specific diagnosi s that is being evaluated, monitored, or treated as if it exists) are acceptable and can be coded in the inpatient se tting, when documented at the time of discharge. Please use your independent medical judgment in providing your response. THIS QUERY IS PART OF THE PERMANENT MEDICAL RECORD
--- NOTE | 2023-11-15 16:31 | PM.EVENT ---
Event Note Date of Service: 11/15/23 Event Note: HR remains well controlled with Cardizem looks comfortable passing flatus tolerating little amounts of clear liquids abd softer DONATO drain still with bloody output altough seems thinner he is more alert able to do well with incentive spirometry scheduled for CTA for episodeof a-fib, mild hypoxia update overall, much improved Time Spent With Patient Time: Total time managing care of this patient today ____ minutes.
[2023-11-15] MEDS: Pantoprazole Sodium 40 MG/10 ML VIAL IVPUSH (17:28)
[2023-11-15] MEDS: iohexoL 350 MG/ML 100 ML INFUS..BTL 65 ML IV (18:55)
[2023-11-15] MEDS: amLODIPine Besylate 5 MG TABLET PO (20:02)
[2023-11-15] MEDS: Losartan Potassium 50 MG TABLET 100 MG PO (20:02)
[2023-11-15] MEDS: Acetaminophen 325 MG TABLET 650 MG PO (21:12)
[2023-11-16] VITALS (9 sets, daily range): BP systolic 139–185; BP diastolic 74–89; PULSE 77–93; RESP 18–20; TEMP 36.5–37.2; O2SAT 93–97
--- NOTE | 2023-11-16 01:40 | PC.NURSE ---
11/15: Assumed care of patient 19:15; Pt just returning from stat CT angio chest to r/o PE on assuming care. A&Ox4. VSS. NSR on tele 70's-80's HR. Pt denies chest pain. Continuous spo2 monitoring in place as ordered, >95%. Continues on 4L nc as assumed on care. Denies sob at rest. Pt able to speak in full sentences and participate with his repositioning in bed without issues; breathing observed even and unlabored without distress throughout. IS encouraged. Midline abdominal incision with laure is CRACKER OFF, c/d/i without redness or drainage. RLQ DONATO with scant output. Pt reporting 4-5/10 pain at this site; Covering Dr. Larsen notified for prn tylenol order, obtained and given with +reported effect. See shift assessment and EMAR for full details. Bed alarm on and safety measures in place. Handoff report given to oncoming RN at 23:00.
[2023-11-16] MEDS: Acetaminophen 325 MG TABLET 650 MG PO ×2 (02:58→09:00)
[2023-11-16] MEDS: Pantoprazole Sodium 40 MG/10 ML VIAL IVPUSH ×2 (05:23→14:42)
[2023-11-16 07:02] LABS: MANUAL DIFF FLAG NO
[2023-11-16 07:25] LABS: Basophils Percent Auto 0.2 % (0-2); Eosinophils Absolute Auto 0.4 X10*3/uL (0.0-0.4); Eosinophils Percent Auto 3.9 % (0-4); Hematocrit 24.7 % (42.0-52.0); Hemoglobin 8.5 g/dl (14.0-18.0); Imm Gran Abs Auto 0.07 X10*3/uL (0.00-0.03); Imm Gran Pct Auto 0.8 % (0.0-0.4); Lymphocytes Absolute Auto 0.7 X10*3/uL (1.2-4.9); Lymphocytes Percent Auto 7.5 % (20-40); Mean Corpuscular HGB Conc 34.4 g/dl (31.0-36.0); Mean Corpuscular Hemoglobin 32.3 pg (27.0-33.0); Mean Corpuscular Volume 93.9 fL (80.0-98.0); Mean Platelet Volume 9.8 fL (9.4-12.4); Monocytes Absolute Auto 0.8 X10*3/uL (0.1-1.2); Monocytes Percent Auto 9.1 % (2-11); Neutrophils Absolute Auto 7.2 x10*3/uL (2.0-8.3); Neutrophils Percent Auto 78.5 % (45-73); Platelet Count 269 X10*3/uL (160-400); Red Blood Count 2.63 X10*6/uL (4.60-5.80); Red Cell Distribution Width 13.7 % (11.0-16.0); White Blood Count 9.2 X10*3/uL (4.8-10.8)
[2023-11-16 07:42] LABS: Anion Gap 12 (12-20); Blood Urea Nitrogen 14 mg/dL (9-16); Calcium 8.5 mg/dL (8.4-10.2); Carbon Dioxide 25 mmol/L (22-29); Chloride 106 mmol/L (96-108); Estimated Glomerular Filt Rate > 60; Glucose Random 114 mg/dL (60-115); Potassium 3.6 mmol/L (3.3-5.1); Sodium 139 mmol/L (135-145)
--- NOTE | 2023-11-16 08:24 | P.PNGS_ITS ---
Subjective Subjective Date of Service: 11/17/23 Interval history: no events reported pain control adequate tolerating clears he wants to try regular diet off Cardizem Physical Exam 2 Vital Signs: Vital Signs: Last Vital Signs Temp 98.2 F 11/16/23 07:17 Pulse 77 11/16/23 07:17 Resp 18 11/16/23 07:17 BP 139/77 11/16/23 07:17 Pulse Ox 97 11/16/23 07:17 O2 Del Method Nasal Cannula 11/16/23 07:17 O2 Flow Rate 4 11/16/23 07:17 Oxygen Flow Rate 4 11/15/23 15:00 BMI result Body Mass Index 33.4 Const: Other: sitting up on recliner General: comfortable Resp: Other: mildly short of breath Effort & Inspection: able to speak in complete sentences Cardio: Rate: regular rate GI: Other: DONATO drain - less output, blood looks darker Palpation (GI): Soft to palpation, not firm and nontender : Other: good UO Objective Data Active Medications Acetaminophen (Acetaminophen 325 Mg Tablet) 650 mg PO Q6H PRN PRN Reason: Pain, Mild (Pain Scale 1-3) Last Admin: 11/16/23 02:58 Dose: 650 mg Documented By: RADHA Amlodipine Besylate (Amlodipine Besylate 5 Mg Tablet) 5 mg PO BEDTIME [facility]; Protocol Last Admin: 11/15/23 20:02 Dose: 5 mg Documented By: JONY Amlodipine Besylate (Amlodipine Besylate 5 Mg Tablet) 5 mg PO DAILY [facility]; Protocol Last Admin: 11/15/23 12:19 Dose: 5 mg Documented By: LAUREN Ampicillin Sodium/Sulbactam (Sodium 3 gm/ Sodium Chloride) 100 mls @ 200 mls/hr IV Q6H [facility] Last Infusion: 11/16/23 05:53 Dose: Infused Documented By: RADHA Lactated Ringer's (Lr) 1,000 mls @ 80 mls/hr IVCONT .[id number] [facility] Last Admin: 11/16/23 05:23 Dose: 80 mls/hr Documented By: RADHA Losartan Potassium (Losartan Potassium 50 Mg Tablet) 100 mg PO BEDTIME [facility]; Protocol Last Admin: 11/15/23 20:02 Dose: 100 mg Documented By: JONY Ondansetron HCl (Ondansetron Hcl 4 Mg/2 Ml Vial) 4 mg IVPUSH Q8H PRN PRN Reason: nausea Last Admin: 11/14/23 01:57 Dose: 4 mg Documented By: MANE Pantoprazole Sodium (Pantoprazole Sodium 40 Mg/10 Ml Vial) 40 mg IVPUSH BID@0630,1630 [facility] Last Admin: 11/16/23 05:23 Dose: 40 mg Documented By: RADHA Sodium Chloride (0.9 % Sodium Chloride Flush 3 Ml Syringe) 3 ml IVFLUSH QSHIFT [facility] Last Admin: 11/15/23 20:02 Dose: 3 ml Documented By: JONY Labs 11/17/23 06:30 11/17/23 06:30 Labs: Laboratory Results - last 24 hr 11/15/23 11/15/23 11/16/23 12:21 13:15 06:10 MCV 93.3 93.9 MCH 32.3 32.3 MCHC 34.6 34.4 RDW 13.9 13.7 Plt Count 253 269 MPV 9.6 9.8 Immature Gran % (Auto) 0.8 H Neut % (Auto) 78.5 H Lymph % (Auto) 7.5 L [place] % (Auto) 9.1 Eos % (Auto) 3.9 Baso % (Auto) 0.2 Lymph # (Auto) 0.7 L [place] # (Auto) 0.8 Eos # (Auto) 0.4 Baso # (Auto) 0.0 Abs Immat Gran (auto) 0.07 H Absolute Neuts (auto) 7.2 Absolute Nucleated RBC 0.000 0.000 Nucleated RBC % (auto) 0.0 0.0 Anion Gap 18 12 Estim Creat Clear Calc 108.6 112.0 Estimated GFR > 60 > 60 POC Glucose 113 Random Glucose 124 H 114 Calcium 9.1 8.5 D Magnesium 1.9 Procedures Date of Service Date of Service: 11/17/23 Progress Note: A&P Assessment and plan (1) Acute blood loss anemia: Status: Acute Assessment and Plan: S/P laparotomy for post op bleeding after cholecystectomy looks much more comfortable DONATO drain slowly decreasing Hg fluctuating but has not had transfusion since Nov 11 advance diet abd remains soft and benign pain mgt doing incentive spirometry well appreciate Hospitalist ffup - CTA does not suggest PE in room - updated overall, continues to improve Time Spent With Patient Time: Total time managing care of this patient today ____ minutes. Quality Stroke Does the patient have a stroke diagnosis?: No VTE Prior VTE?: No VTE Risk Level:: Medical - moderate - high VTE Device Contraindication: N/A - Device Ordered VTE Drug Contraindication: Treatment Not Indicated (Contraindicated in view of possible bleeding)
[2023-11-16] MEDS: amLODIPine Besylate 5 MG TABLET PO ×2 (08:55→22:10)
--- NOTE | 2023-11-16 10:08 | P.CONCA_ITS ---
History of Present Illness History of Present Illness Date of Service: 11/16/23 Requesting physician: Cata Nicholas Consult reason: atrial fibrillation Chief complaint: Syncope,s/p lap roosevelt Narrative: I was consulted to see Abdullahi in cardiology consultation today as he developed paroxysmal atrial fibrillation yesterday. Patient with complicated recent history status post laparoscopic cholecystectomy complicated by hematoma undergoing repeat surgery about 5 days ago. Patient was usual state of health recuperating yesterday Faustina prep it heart rate consistent with atrial fibrillation. This lasted for about an hour and converted back to sinus rhythm with IV Cardizem drip. Remains in sinus rhythm. He had no symptoms during the episode of atrial fibrillation. Remained hemodynamically stable without evidence of heart failure. Echocardiogram done yesterday showed normal LV systolic function with mild left atrial enlargement. Cardiology consult was sought because of atrial fibrillation. He has no prior history of atrial fibrillation. Has prior history of CAD status post stenting of the RCA few years ago for symptoms exertional shortness of breath with improved symptoms. Had been maintain her low-dose aspirin therapy and statin therapy. Has history of hypertension. Review of Systems 2 Constitutional: Constitutional: Reports lethargy and Reports weakness Cardiovascular: Cardiovascular: Reports no additional cardiovascular complaints and Reports dyspnea Respiratory: Respiratory: Reports dyspnea Gastrointestinal: Gastrointestinal: Reports constipation Genitourinary: Genitourinary: Reports no additional male genitourinary complaints Neurologic: Reports system reviewed and no additional complaints, except as documented and Reports weakness Psychiatric: Psychiatric: Reports no additional psychiatric complaints [facility] Past Medical History Medical History [place] disease Hematoma GERD (gastroesophageal reflux disease) Elevated cholesterol Low back pain Depression CAD (coronary artery disease) Stable angina Gallstones Scoliosis Carpal tunnel syndrome C2 cervical fracture Arthritis Hypertension Family History Family History Father HTN (hypertension) Cardiac arrest Mother HTN (hypertension) Stroke Sister HTN (hypertension) Cancer Surgical History Surgical History S/P laparoscopic cholecystectomy Hx of carpal tunnel repair History of esophagogastroduodenoscopy (EGD) H/O colonoscopy History of cardiac cath Social History Social History Household Members: Spouse Household Members Other:: tereza Housing: House Are you a primary medication care manager to a significant other at home: No Do you presently have visiting nurse or other home services: No Unable to assess alcohol history related to: Unable to respond Alcohol intake: never Patient Tobacco Use Status: Former Tobacco user Quit Date: 1970 Tobacco use type: Cigarette Years Smoked: 3 +/- service: Yes Meds Allergies Allergy/AdvReac Type Severity Reaction Status Date / Time No Known Allergies Allergy Verified 11/10/23 08:20 Active Medications: Current Medications Acetaminophen (Acetaminophen 325 Mg Tablet) 650 mg PO Q6H PRN PRN Reason: Pain, Mild (Pain Scale 1-3) Last Admin: 11/16/23 09:00 Dose: 650 mg Amlodipine Besylate (Amlodipine Besylate 5 Mg Tablet) 5 mg PO BEDTIME [facility]; Protocol Last Admin: 11/15/23 20:02 Dose: 5 mg Amlodipine Besylate (Amlodipine Besylate 5 Mg Tablet) 5 mg PO DAILY [facility]; Protocol Last Admin: 11/16/23 08:55 Dose: 5 mg Ampicillin Sodium/Sulbactam (Sodium 3 gm/ Sodium Chloride) 100 mls @ 200 mls/hr IV Q6H [facility] Last Infusion: 11/16/23 05:53 Dose: Infused Lactated Ringer's (Lr) 1,000 mls @ 80 mls/hr IVCONT .[id number] [facility] Last Admin: 11/16/23 05:23 Dose: 80 mls/hr Losartan Potassium (Losartan Potassium 50 Mg Tablet) 100 mg PO BEDTIME [facility]; Protocol Last Admin: 11/15/23 20:02 Dose: 100 mg Ondansetron HCl (Ondansetron Hcl 4 Mg/2 Ml Vial) 4 mg IVPUSH Q8H PRN PRN Reason: nausea Last Admin: 11/14/23 01:57 Dose: 4 mg Pantoprazole Sodium (Pantoprazole Sodium 40 Mg/10 Ml Vial) 40 mg IVPUSH BID@0630,1630 [facility] Last Admin: 11/16/23 05:23 Dose: 40 mg Sodium Chloride (0.9 % Sodium Chloride Flush 3 Ml Syringe) 3 ml IVFLUSH QSHIFT [facility] Last Admin: 11/16/23 08:51 Dose: Not Given Home Medications Medication Instructions Recorded Confirmed Last Taken Type aspirin 81 mg tablet,delayed 81 mg PO DAILY 01/13/21 11/05/23 11/09/23 History release (Adult Low Dose Aspirin) atorvastatin 20 mg tablet 20 mg PO Q OTHER DAY 01/13/21 11/10/23 11/08/23 History losartan 100 mg tablet 100 mg PO BEDTIME 01/13/21 11/10/23 11/09/23 History metoprolol tartrate 25 mg tablet 12.5 mg PO BID 01/13/21 11/05/23 11/10/23 00:10 History omeprazole 40 mg capsule,delayed 40 mg PO BEDTIME 01/13/21 11/10/23 11/09/23 History release tramadol 50 mg tablet 50 mg PO BID PRN Pain 01/13/21 11/10/23 Unknown History acetaminophen 500 mg tablet 500 mg PO Q6H PRN Pain 11/03/23 11/10/23 Unknown History cholecalciferol (vitamin D3) 25 25 mcg PO DAILY 11/03/23 11/10/23 11/09/23 History mcg (1,000 unit) capsule glucosamine-chondroitin 500 mg-400 1 cap PO DAILY 11/03/23 11/10/23 11/09/23 History mg capsule magnesium oxide 500 mg tablet 500 mg PO DAILY 11/03/23 11/10/23 11/09/23 History mecobalamin (vitamin B12) 2,500 3,000 mcg PO DAILY 11/03/23 11/10/23 11/09/23 History mcg chewable tablet omega [id number] oil 1,000 mg 1 cap PO DAILY 11/03/23 11/05/23 11/09/23 History (120 mg-180 mg) capsule (Fish Oil) amlodipine 5 mg tablet 5 mg PO BEDTIME 11/05/23 11/10/23 11/09/23 History Physical Exam 2 Vital Signs: Vital Signs: Last Vital Signs Temp 98.2 F 11/16/23 07:17 Pulse 77 11/16/23 07:17 Resp 18 11/16/23 07:17 BP 139/77 11/16/23 07:17 Pulse Ox 97 11/16/23 07:17 O2 Del Method Nasal Cannula 11/16/23 07:17 O2 Flow Rate 4 11/16/23 07:17 Oxygen Flow Rate 4 11/15/23 15:00 BMI result Body Mass Index 33.4 Const: General: cooperative, comfortable, in distress mild and respiratory, ill appearing and tired appearing Nutritional Appearance: overweight O rientation/consciousness: patient oriented x3 HEENT: Head: Yes normocephalic and Yes atraumatic Neck: Neck: Yes trachea midline and Yes no JVD Resp: Effort & Inspection: decreased respiratory effort Auscultation: no rales, no wheezes and diminished lung sounds Cardio: Jugular venous distension: no JVD Palpation: normal PMI Rate: r egular rate Rhythm: regular rhythm Heart sounds: S1 normal heart sound present, S2 normal heart sound present, no click, no gallops, no murmurs and no rubs GI: Inspection: Yes distended Skin: General skin exam: no rashes or lesions noted Neuro: General: patient oriented x3 and no focal motor deficits Extrem: General: Yes no clubbing, cyanosis or edema Objective Labs and Meds 11/16/23 06:10 11/16/23 06:10 Lab results: Laboratory Results - last 24 hr 11/15/23 11/15/23 11/16/23 12:21 13:15 06:10 WBC 10.7 9.2 RBC 2.82 L 2.63 L Hgb 9.1 L 8.5 L Hct 26.3 L 24.7 L MCV 93.3 93.9 MCH 32.3 32.3 MCHC 34.6 34.4 RDW 13.9 13.7 Plt Count 253 269 MPV 9.6 9.8 Immature Gran % (Auto) 0.8 H Neut % (Auto) 78.5 H Lymph % (Auto) 7.5 L [place] % (Auto) 9.1 Eos % (Auto) 3.9 Baso % (Auto) 0.2 Lymph # (Auto) 0.7 L [place] # (Auto) 0.8 Eos # (Auto) 0.4 Baso # (Auto) 0.0 Abs Immat Gran (auto) 0.07 H Absolute Neuts (auto) 7.2 Absolute Nucleated RBC 0.000 0.000 Nucleated RBC % (auto) 0.0 0.0 Sodium 140 139 Potassium 3.8 3.6 Chloride 102 106 Carbon Dioxide 24 25 Anion Gap 18 12 BUN 15 14 Creatinine 0.65 0.63 Estim Creat Clear Calc 108.6 112.0 Estimated GFR > 60 > 60 POC Glucose 113 Random Glucose 124 H 114 Calcium 9.1 8.5 D Magnesium 1.9 Imaging Radiologist's impression: Impressions Chest CTA 11/15/23 19:02 IMPRESSION: 1. No evidence for pulmonary emboli. 2. Small bilateral pleural effusions with associated dependent airspace changes likely reflecting component of atelectasis. 3. Postoperative changes in the upper abdomen with evolving complex hyperdense hematoma surrounding the liver as noted on the prior study. 4. There is a 1.3 cm lesion suggested near the junctions of segments 5 and 8 of uncertain etiology. This is not readily apparent on the older 10/13/2023 CT scan. VTE: Negative. Assessment and Plan (1) Paroxysmal atrial fibrillation: Status: Acute Paroxysmal atrial fibrillation transient converted back to sinus rhythm with IV Cardizem drip. Most likely related to his acute medical/surgical illness and repeated surgery. He does have mild left atrial enlargement from before. At this point time would consider starting on metoprolol 25 mg b.i.d. to reduce recurrence of atrial fibrillation. If he has recurrent atrial fibrillation current consider antiarrhythmic drug therapy for temporary. With time. Continue blood pressure control. Continue supportive care. Discussed with surgery and would avoid using oral anticoagulation given both transient nature of atrial fibrillation recent significant bleeding complication post surgery as well as persistent anemia. Continue full disclosure cardiac monitoring. Continue statin therapy. Resume aspirin therapy when cleared by surgery. Will sign of the case. Thank you for allowing me to partake in his care Procedures Date of Service Date of Service: 11/16/23
[2023-11-16] MEDS: Morphine Sulfate 2 MG/ML CARTRIDGE IVPUSH ×3 (12:55→22:09)
--- NOTE | 2023-11-16 14:11 | P.PNIM_ITS ---
Subjective Subjective Date of Service: 11/16/23 Interval History: seen and examined this morning follow up medical consultation Feeling slightly better, still week. No cough, sob, cp. Afebrile. Blood pressures improved. No overnight events. NO recurrence afib Review of Systems Review of Systems: Yes all other systems are reviewed and are negative Physical Exam 2 Vital Signs: Vital Signs: Last Vital Signs Temp 98.7 F 11/16/23 11:25 Pulse 90 11/16/23 11:25 Resp 18 11/16/23 11:25 BP 146/74 H 11/16/23 11:25 Pulse Ox 96 11/16/23 11:25 O2 Del Method Nasal Cannula 11/16/23 11:25 O2 Flow Rate 4 11/16/23 11:25 Oxygen Flow Rate 4 11/15/23 15:00 BMI result Body Mass Index 33.4 Constitutional - Awake and Alert, No apparent distress Eyes - PERRLA, EOMI Cardiovascular - S1S2, RRR, No edema Respiratory - Normal lung expansion, Normal respiratory effort, No respiratory distress, CTA bilaterally Extremities - no calf tenderness bilaterally, no swelling Skin - Warm/Dry Neurological - Alert & oriented x3 Psychological - Appropriate affect Objective Data Active Medications Acetaminophen (Acetaminophen 325 Mg Tablet) 650 mg PO Q6H PRN PRN Reason: Pain, Mild (Pain Scale 1-3) Last Admin: 11/16/23 09:00 Dose: 650 mg Documented By: LAUREN Amlodipine Besylate (Amlodipine Besylate 5 Mg Tablet) 5 mg PO BEDTIME [facility]; Protocol Last Admin: 11/15/23 20:02 Dose: 5 mg Documented By: JONY Amlodipine Besylate (Amlodipine Besylate 5 Mg Tablet) 5 mg PO DAILY [facility]; Protocol Last Admin: 11/16/23 08:55 Dose: 5 mg Documented By: LAUREN Ampicillin Sodium/Sulbactam (Sodium 3 gm/ Sodium Chloride) 100 mls @ 200 mls/hr IV Q6H [facility] Last Infusion: 11/16/23 12:49 Dose: Infused Documented By: LAUREN Lactated Ringer's (Lr) 1,000 mls @ 80 mls/hr IVCONT .[id number] [facility] Last Admin: 11/16/23 05:23 Dose: 80 mls/hr Documented By: RADHA Losartan Potassium (Losartan Potassium 50 Mg Tablet) 100 mg PO BEDTIME [facility]; Protocol Last Admin: 11/15/23 20:02 Dose: 100 mg Documented By: JONY Morphine Sulfate (Morphine Sulfate 2 Mg/Ml Cartridge) 2 mg IVPUSH Q3H PRN; Protocol PRN Reason: Pain, Severe (Pain Scale 7-10) Last Admin: 11/16/23 12:55 Dose: 2 mg Documented By: LAUREN Ondansetron HCl (Ondansetron Hcl 4 Mg/2 Ml Vial) 4 mg IVPUSH Q8H PRN PRN Reason: nausea Last Admin: 11/14/23 01:57 Dose: 4 mg Documented By: MANE Oxycodone HCl (Oxycodone Hcl Immed Release 5 Mg Tablet) 5 mg PO Q4H PRN PRN Reason: Pain, Moderate(Pain Scale 4-6) Pantoprazole Sodium (Pantoprazole Sodium 40 Mg/10 Ml Vial) 40 mg IVPUSH BID@0630,1630 [facility] Last Admin: 11/16/23 05:23 Dose: 40 mg Documented By: RADHA Sodium Chloride (0.9 % Sodium Chloride Flush 3 Ml Syringe) 3 ml IVFLUSH QSHIFT [facility] Last Admin: 11/16/23 08:51 Dose: Not Given Documented By: LAUREN Non-Admin Reason: IV Running Labs 11/16/23 06:10 11/16/23 06:10 Labs: Laboratory Results - last 24 hr 11/16/23 06:10 MCV 93.9 MCH 32.3 MCHC 34.4 RDW 13.7 Plt Count 269 MPV 9.8 Immature Gran % (Auto) 0.8 H Neut % (Auto) 78.5 H Lymph % (Auto) 7.5 L [place] % (Auto) 9.1 Eos % (Auto) 3.9 Baso % (Auto) 0.2 Lymph # (Auto) 0.7 L [place] # (Auto) 0.8 Eos # (Auto) 0.4 Baso # (Auto) 0.0 Abs Immat Gran (auto) 0.07 H Absolute Neuts (auto) 7.2 Absolute Nucleated RBC 0.000 Nucleated RBC % (auto) 0.0 Anion Gap 12 Estim Creat Clear Calc 112.0 Estimated GFR > 60 Random Glucose 114 Calcium 8.5 D Assessment and Plan (1) Hematoma: Status: Acute (2) Aspiration pneumonia: Status: Acute (3) Acute blood loss anemia: Status: Acute Plan 73-year-old male with history of hypertension, hyperlipidemia, GERD, coronary artery disease s/p LEELA RCA 2007 admitted to General surgery s/p laparoscopic cholecystectomy for symptomatic gallstones. In discussion with patient and review of chart, syncopal episode seems consistent with vasovagal syncope given given pallor and diaphoresis likely in the setting of pain coupled with acute blood loss secondary to surgery given absence of other prodrome. Blood pressures have been stable in PACU, no arrhythmia noted on quality assurance monitor final. Hgb 15.2 --> 12.3. Trop below detectable limits. Low suspicion for PE or ACS at this time. No focal neuro deficits. #Cholelithiasis s/p lap roosevelt with post operative hematoma s/p hematoma evacuation H/H improving #Paroxysmal atrial fibrillation- rate now controlled -likely r/t acute medical/surgical condition and repeated surgery -Start metoprolol 25mg BID -If recurrent, consider antiarrhythmic drug therapy -avoid ac given transient nature of atrial fibrillation and recent significant bleeding complication post surgery as well as persistent anemia #Acute blood loss anemia -H/H stable overall -transfused 1 unit platelets, 2 units ffp / per hematology -Plan per general surgery #Acute pneumonia, likely aspiration -cxr shows bilaterally patchy infiltrates -afebrile, WBC trending down -IV unasyn (initiated 11/13), transition to augmentin once NG tube dc'd #Pleural effusions -dependent r/t atelectasis, pneumonia, post-op #Vasovagal syncope likely due to above, no further episodes continue close monitoring #GUTIERREZ- resolved creatinine trending down getting IVF follow renal function #HTN- bp elevated -continue metoprolol, amlodpine 5mg bedtime, losartan 100mg bedtime -add amlodipine 5mg daily #HLD hold statin for now, resume on discharge #CAD -no anginal chest pain, trop below detectable limits, doubt acs -asa on hold for surgery, hematoma; continue BB #GERD -continue ppi Thank you for this consult. Will continue following along with you. Quality Stroke Does the patient have a stroke diagnosis?: No VTE Prior VTE?: No VTE Risk Level:: Medical - moderate - high VTE Device Contraindication: N/A - Device Ordered VTE Drug Contraindication: Treatment Not Indicated (Contraindicated in view of possible bleeding)
[2023-11-16] MEDS: Metoprolol Tartrate 25 MG TABLET PO ×2 (14:42→22:10)
--- NOTE | 2023-11-16 15:05 | PM.EVENT ---
Event Note Date of Service: 11/17/23 Event Note: States he feels well tolerated lunch, ate about half but says he got full quickly and had some pain Currently comfortable Abdomen remained soft and benign Stable vital signs DONATO drain decreasing in output, more of darker colored blood Good urine Continue incentive spirometry Oral pain meds Continues to do improve Time Spent With Patient Time: Total time managing care of this patient today ____ minutes.
[2023-11-16] MEDS: ondansetron HCL 4 MG/2 ML VIAL IVPUSH (17:43)
[2023-11-16] MEDS: Losartan Potassium 50 MG TABLET 100 MG PO (22:09)
[2023-11-16] MEDS: Amoxicillin/Potassium Clav 875 MG TABLET PO (22:10)
[2023-11-17] VITALS (7 sets, daily range): BP systolic 126–161; BP diastolic 60–75; PULSE 82–92; RESP 18–20; TEMP 36–36.9; O2SAT 92–96
[2023-11-17] MEDS: oxyCODONE HCl Immed Release 5 MG TABLET PO ×2 (05:08→20:30)
[2023-11-17 07:14] LABS: MANUAL DIFF FLAG NO
[2023-11-17 07:32] LABS: Basophils Percent Auto 0.3 % (0-2); Eosinophils Absolute Auto 0.3 X10*3/uL (0.0-0.4); Eosinophils Percent Auto 3.6 % (0-4); Hematocrit 25.9 % (42.0-52.0); Hemoglobin 8.9 g/dl (14.0-18.0); Imm Gran Abs Auto 0.07 X10*3/uL (0.00-0.03); Imm Gran Pct Auto 0.8 % (0.0-0.4); Lymphocytes Absolute Auto 0.7 X10*3/uL (1.2-4.9); Lymphocytes Percent Auto 7.1 % (20-40); Mean Corpuscular HGB Conc 34.4 g/dl (31.0-36.0); Mean Corpuscular Hemoglobin 32.7 pg (27.0-33.0); Mean Corpuscular Volume 95.2 fL (80.0-98.0); Mean Platelet Volume 9.6 fL (9.4-12.4); Monocytes Absolute Auto 0.8 X10*3/uL (0.1-1.2); Monocytes Percent Auto 8.6 % (2-11); Neutrophils Absolute Auto 7.3 x10*3/uL (2.0-8.3); Neutrophils Percent Auto 79.6 % (45-73); Platelet Count 309 X10*3/uL (160-400); Red Blood Count 2.72 X10*6/uL (4.60-5.80); Red Cell Distribution Width 13.7 % (11.0-16.0); White Blood Count 9.1 X10*3/uL (4.8-10.8)
[2023-11-17 07:36] LABS: Anion Gap 14 (12-20); Blood Urea Nitrogen 13 mg/dL (9-16); Calcium 8.5 mg/dL (8.4-10.2); Carbon Dioxide 24 mmol/L (22-29); Chloride 105 mmol/L (96-108); Creatinine Clr Calc Pharmacy 115.7; Estimated Glomerular Filt Rate > 60; Glucose Random 109 mg/dL (60-115); Potassium 3.7 mmol/L (3.3-5.1); Sodium 139 mmol/L (135-145)
--- NOTE | 2023-11-17 08:26 | P.PNGS_ITS ---
Subjective Subjective Date of Service: 11/18/23 Interval history: Says he continues to feel better Tolerating diet Pain level improving No events reported Physical Exam 2 Vital Signs: Vital Signs: Last Vital Signs Temp 97.8 F 11/17/23 07:08 Pulse 92 11/17/23 07:08 Resp 18 11/17/23 07:08 BP 135/75 11/17/23 07:08 Pulse Ox 96 11/17/23 07:08 O2 Del Method Nasal Cannula 11/17/23 07:08 O2 Flow Rate 2 11/17/23 07:08 Oxygen Flow Rate 4 11/16/23 15:00 BMI result Body Mass Index 33.4 Const: General: no acute distress Orientation/consciousness: patient oriented x3 Resp: Effort & Inspection: normal respiratory effort Cardio: Rate: regular rate GI: Other: Soft, no guarding rebound, incision clean, DONATO drain with much less output, darker old blood Neuro: General: patient oriented x3 Objective Data Active Medications Acetaminophen (Acetaminophen 325 Mg Tablet) 650 mg PO Q6H PRN PRN Reason: Pain, Mild (Pain Scale 1-3) Last Admin: 11/16/23 09:00 Dose: 650 mg Documented By: LAUREN Amlodipine Besylate (Amlodipine Besylate 5 Mg Tablet) 5 mg PO BEDTIME [facility]; Protocol Last Admin: 11/16/23 22:10 Dose: 5 mg Documented By: BRETT Amlodipine Besylate (Amlodipine Besylate 5 Mg Tablet) 5 mg PO DAILY [facility]; Protocol Last Admin: 11/16/23 08:55 Dose: 5 mg Documented By: LAUREN Amoxicillin/Clavulanate Potassium (Amoxicillin/Potassium Clav 875 Mg Tablet) 875 mg PO BID [facility] Stop: 11/18/23 21:01 Last Admin: 11/16/23 22:10 Dose: 875 mg Documented By: BRETT Losartan Potassium (Losartan Potassium 50 Mg Tablet) 100 mg PO BEDTIME [facility]; Protocol Last Admin: 11/16/23 22:09 Dose: 100 mg Documented By: BRETT Metoprolol Tartrate (Metoprolol Tartrate 25 Mg Tablet) 25 mg PO BID [facility]; Protocol Last Admin: 11/16/23 22:10 Dose: 25 mg Documented By: BRETT Morphine Sulfate (Morphine Sulfate 2 Mg/Ml Cartridge) 2 mg IVPUSH Q3H PRN; Protocol PRN Reason: Pain, Severe (Pain Scale 7-10) Last Admin: 11/16/23 22:09 Dose: 2 mg Documented By: BRETT Ondansetron HCl (Ondansetron Hcl 4 Mg/2 Ml Vial) 4 mg IVPUSH Q8H PRN PRN Reason: nausea Last Admin: 11/16/23 17:43 Dose: 4 mg Documented By: LAUREN Oxycodone HCl (Oxycodone Hcl Immed Release 5 Mg Tablet) 5 mg PO Q4H PRN PRN Reason: Pain, Moderate(Pain Scale 4-6) Last Admin: 11/17/23 05:08 Dose: 5 mg Documented By: BRETT Sodium Chloride (0.9 % Sodium Chloride Flush 3 Ml Syringe) 3 ml IVFLUSH QSHIFT [facility] Last Admin: 11/16/23 22:10 Dose: 3 ml Documented By: BRETT Labs 11/17/23 06:30 11/17/23 06:30 Labs: Laboratory Results - last 24 hr 11/17/23 06:30 MCV 95.2 MCH 32.7 MCHC 34.4 RDW 13.7 Plt Count 309 MPV 9.6 Immature Gran % (Auto) 0.8 H Neut % (Auto) 79.6 H Lymph % (Auto) 7.1 L [place] % (Auto) 8.6 Eos % (Auto) 3.6 Baso % (Auto) 0.3 Lymph # (Auto) 0.7 L [place] # (Auto) 0.8 Eos # (Auto) 0.3 Baso # (Auto) 0.0 Abs Immat Gran (auto) 0.07 H Absolute Neuts (auto) 7.3 Absolute Nucleated RBC 0.000 Nucleated RBC % (auto) 0.0 Anion Gap 14 Estim Creat Clear Calc 115.7 Estimated GFR > 60 Random Glucose 109 Calcium 8.5 Procedures Date of Service Date of Service: 11/18/23 Progress Note: A&P Assessment and plan (1) S/P laparoscopic cholecystectomy: Status: Acute Assessment and Plan: Status post laparotomy for a bleeding Continues to improve Tolerating diet Hemoglobin steady DONATO drain much less output Abdomen remained soft and benign Clinically much better Try physical therapy today Time Spent With Patient Time: Total time managing care of this patient today ____ minutes. Quality Stroke Does the patient have a stroke diagnosis?: No VTE Prior VTE?: No VTE Risk Level:: Medical - moderate - high VTE Device Contraindication: N/A - Device Ordered VTE Drug Contraindication: Treatment Not Indicated (Contraindicated in view of possible bleeding)
[2023-11-17] MEDS: Metoprolol Tartrate 25 MG TABLET PO ×2 (08:55→20:31)
[2023-11-17] MEDS: Amoxicillin/Potassium Clav 875 MG TABLET PO ×2 (08:55→20:30)
[2023-11-17] MEDS: amLODIPine Besylate 5 MG TABLET PO ×2 (08:58→20:30)
--- NOTE | 2023-11-17 10:35 | P.PNIM_ITS ---
Subjective Subjective Date of Service: 11/17/23 Interval History: no further afib weak, needs PT DONATO with some output postop pain controlled Review of Systems Review of Systems: Yes all other systems are reviewed and are negative Physical Exam 2 Vital Signs: Vital Signs: Last Vital Signs Temp 97.8 F 11/17/23 07:08 Pulse 92 11/17/23 07:08 Resp 18 11/17/23 07:08 BP 135/75 11/17/23 07:08 Pulse Ox 96 11/17/23 07:08 O2 Del Method Nasal Cannula 11/17/23 07:08 O2 Flow Rate 2 11/17/23 07:08 Oxygen Flow Rate 4 11/16/23 15:00 BMI result Body Mass Index 33.4 Gen: in no acute distress HEENT: sclera anicteric, moist mucus membranes Neck: supple Lungs: clear to auscultation bilaterally Heart: regular rate and rhythm, no murmurs Abd: soft, surgical incisions clean/dry/intact, non-distended, DONATO drain with serosanguinous drainage Ext: no edema Skin: warm/well-perfused Neuro: alert and oriented x3, no focal findings Psych: appropriate affect Objective Data Active Medications Acetaminophen (Acetaminophen 325 Mg Tablet) 650 mg PO Q6H PRN PRN Reason: Pain, Mild (Pain Scale 1-3) Last Admin: 11/16/23 09:00 Dose: 650 mg Documented By: LAUREN Amlodipine Besylate (Amlodipine Besylate 5 Mg Tablet) 5 mg PO BEDTIME [facility]; Protocol Last Admin: 11/16/23 22:10 Dose: 5 mg Documented By: BRETT Amlodipine Besylate (Amlodipine Besylate 5 Mg Tablet) 5 mg PO DAILY [facility]; Protocol Last Admin: 11/17/23 08:58 Dose: 5 mg Documented By: BRUNILDA Amoxicillin/Clavulanate Potassium (Amoxicillin/Potassium Clav 875 Mg Tablet) 875 mg PO BID [facility] Stop: 11/18/23 21:01 Last Admin: 11/17/23 08:55 Dose: 875 mg Documented By: BRUNILDA Losartan Potassium (Losartan Potassium 50 Mg Tablet) 100 mg PO BEDTIME [facility]; Protocol Last Admin: 11/16/23 22:09 Dose: 100 mg Documented By: BRETT Metoprolol Tartrate (Metoprolol Tartrate 25 Mg Tablet) 25 mg PO BID [facility]; Protocol Last Admin: 11/17/23 08:55 Dose: 25 mg Documented By: BRUNILDA Morphine Sulfate (Morphine Sulfate 2 Mg/Ml Cartridge) 2 mg IVPUSH Q3H PRN; Protocol PRN Reason: Pain, Severe (Pain Scale 7-10) Last Admin: 11/16/23 22:09 Dose: 2 mg Documented By: BRETT Ondansetron HCl (Ondansetron Hcl 4 Mg/2 Ml Vial) 4 mg IVPUSH Q8H PRN PRN Reason: nausea Last Admin: 11/16/23 17:43 Dose: 4 mg Documented By: LAUREN Oxycodone HCl (Oxycodone Hcl Immed Release 5 Mg Tablet) 5 mg PO Q4H PRN PRN Reason: Pain, Moderate(Pain Scale 4-6) Last Admin: 11/17/23 05:08 Dose: 5 mg Documented By: BRETT Sodium Chloride (0.9 % Sodium Chloride Flush 3 Ml Syringe) 3 ml IVFLUSH [facility] Last Admin: 11/17/23 08:56 Dose: 3 ml Documented By: BRUNILDA Labs 11/17/23 06:30 11/17/23 06:30 Labs: Laboratory Results - last 24 hr 11/17/23 06:30 MCV 95.2 MCH 32.7 MCHC 34.4 RDW 13.7 Plt Count 309 MPV 9.6 Immature Gran % (Auto) 0.8 H Neut % (Auto) 79.6 H Lymph % (Auto) 7.1 L [place] % (Auto) 8.6 Eos % (Auto) 3.6 Baso % (Auto) 0.3 Lymph # (Auto) 0.7 L [place] # (Auto) 0.8 Eos # (Auto) 0.3 Baso # (Auto) 0.0 Abs Immat Gran (auto) 0.07 H Absolute Neuts (auto) 7.3 Absolute Nucleated RBC 0.000 Nucleated RBC % (auto) 0.0 Anion Gap 14 Estim Creat Clear Calc 115.7 Estimated GFR > 60 Random Glucose 109 Calcium 8.5 Assessment and Plan (1) Hematoma: Status: Acute (2) Aspiration pneumonia: Status: Acute (3) Acute blood loss anemia: Status: Acute Plan d8 73yo M with HTN, HLD, GERD, CAD s/p LEELA to RCA 2007 admitted to [facility] for lap roosevelt done 11/10/23, returned to 11/11/23 for control of bleeder near cystic duct stump/hematoma evacuation/DONATO drain had syncopal episode likely due to vasovagal syndrome + acute blood loss postoperative paroxysmal AF cholelithiasis - s/p lap roosevelt, pain control/IS, DONATO drain management per Gen SUrg paroxysmal AF - transient, due to postoperative state, AC not indiacted - metoprolol 25 mg bid acute blood loss anemia - transfused 1u plts, 2u FFP, 4u pRBCs - H+H stable aspiration PNA - amp-sul 11/13-11/16, amox-clav 11/16-11/18 - WBCs normalized dependent pleural effusions - due to postop fluid shifts, encourage IS vasovagal syncope - resolved prerenal GUTIERREZ - resolved after transfusion + fluid resuscitation HTN - continue metoprolol, amlodipine, losartan CAD - ASA held for surgery, continue metoprolol GERD - PPI VTE ppx - SCDs dispo - PT eval In my clinical judgment, the patient requires continued inpatient hospitalization for the following reasons: postop care Total time managing care of this patient today: 35 minutes. Quality Stroke Does the patient have a stroke diagnosis?: No VTE Prior VTE?: No VTE Risk Level:: Medical - moderate - high VTE Device Contraindication: N/A - Device Ordered VTE Drug Contraindication: Treatment Not Indicated (Contraindicated in view of possible bleeding)
--- NOTE | 2023-11-17 14:40 | MHC.CM.PN ---
EMR reviewed and per MD rounds, pt is not medically cleared for D/C. PT recommends STR. This CM met with pt and his at bedside to discuss. Pts is not ready to discuss STR at this time. Surgeon at bedside and aware. CM will continue to follow.
--- NOTE | 2023-11-17 15:03 | P.EN_ITS ---
Event Note Date of Service: 11/18/23 Event Note: Seen on afternoon rounds now ate well for breakfast but was asleep for lunch Says he has been sleepy and tired today Was able to do physical therapy for the 1st time this afternoon -walks around the bed Abdomen remained soft Good urine output Stable vital signs Push p.o. intake Oral pain meds -now off IV pain medications His expressed frustration that staffing may not be adequate for nursing She states that she has been a [employer]IO IN[employer]PERATOR for a long time and wanted more to be done for patient Discussed this with nursing staff He does well with incentive spirometry Time Spent With Patient Time: Total time managing care of this patient today ____ minutes.
[2023-11-17] MEDS: Dextrose 5 % and 0.9 % NaCl 1,000 ML 80 ML IVCONT (15:28)
[2023-11-17] MEDS: Losartan Potassium 50 MG TABLET 100 MG PO (20:31)
[2023-11-18] VITALS (8 sets, daily range): BP systolic 136–158; BP diastolic 65–73; PULSE 72–90; RESP 16–20; TEMP 36.6–37.8; O2SAT 91–95
[2023-11-18] MEDS: oxyCODONE HCl Immed Release 5 MG TABLET PO ×2 (03:55→09:53)
[2023-11-18] MEDS: Dextrose 5 % and 0.9 % NaCl 1,000 ML 80 ML IVCONT (03:56)
[2023-11-18] MEDS: Metoprolol Tartrate 25 MG TABLET PO ×2 (07:57→19:55)
[2023-11-18] MEDS: Amoxicillin/Potassium Clav 875 MG TABLET PO ×2 (07:57→19:55)
[2023-11-18] MEDS: amLODIPine Besylate 5 MG TABLET PO ×2 (07:57→19:55)
--- NOTE | 2023-11-18 08:01 | P.PNGS_ITS ---
Subjective Subjective Date of Service: 11/19/23 Interval history: feels well this morning hungry, states he is waiting for breakfast tolerating diet Physical Exam 2 Vital Signs: Vital Signs: Last Vital Signs Temp 98.2 F 11/18/23 07:49 Pulse 84 11/18/23 07:49 Resp 20 11/18/23 07:49 BP 154/71 H 11/18/23 07:49 Pulse Ox 95 11/18/23 07:49 O2 Del Method Nasal Cannula 11/18/23 07:49 O2 Flow Rate 1 11/18/23 07:49 Oxygen Flow Rate 2 11/17/23 15:00 BMI result Body Mass Index 33.4 Const: General: comfortable, no acute distress and alert Eyes: Other: Anicteric sclerae Resp: Effort & Inspection: normal respiratory effort Cardio: Rate: regular rate GI: Palpation (GI): Soft to palpation, not firm, Tenderness to palpation present (GI) (tender on right side and along incision) and no guarding Objective Data Active Medications Acetaminophen (Acetaminophen 325 Mg Tablet) 650 mg PO Q6H PRN PRN Reason: Pain, Mild (Pain Scale 1-3) Last Admin: 11/16/23 09:00 Dose: 650 mg Documented By: LAUREN Amlodipine Besylate (Amlodipine Besylate 5 Mg Tablet) 5 mg PO BEDTIME [facility]; Protocol Last Admin: 11/17/23 20:30 Dose: 5 mg Documented By: BRETT Amlodipine Besylate (Amlodipine Besylate 5 Mg Tablet) 5 mg PO DAILY [facility]; Protocol Last Admin: 11/18/23 07:57 Dose: 5 mg Documented By: BRUNILDA Amoxicillin/Clavulanate Potassium (Amoxicillin/Potassium Clav 875 Mg Tablet) 875 mg PO BID [facility] Stop: 11/18/23 21:01 Last Admin: 11/18/23 07:57 Dose: 875 mg Documented By: BRUNILDA Dextrose/Sodium Chloride (D5ns) 1,000 mls @ 80 mls/hr IVCONT .[id number] [facility] Last Admin: 11/18/23 03:56 Dose: 80 mls/hr Documented By: BRETT Losartan Potassium (Losartan Potassium 50 Mg Tablet) 100 mg PO BEDTIME [facility]; Protocol Last Admin: 11/17/23 20:31 Dose: 100 mg Documented By: BRETT Metoprolol Tartrate (Metoprolol Tartrate 25 Mg Tablet) 25 mg PO BID [facility]; Protocol Last Admin: 11/18/23 07:57 Dose: 25 mg Documented By: BRUNILDA Morphine Sulfate (Morphine Sulfate 2 Mg/Ml Cartridge) 2 mg IVPUSH Q3H PRN; Protocol PRN Reason: Pain, Severe (Pain Scale 7-10) Last Admin: 11/16/23 22:09 Dose: 2 mg Documented By: BRETT Ondansetron HCl (Ondansetron Hcl 4 Mg/2 Ml Vial) 4 mg IVPUSH Q8H PRN PRN Reason: nausea Last Admin: 11/16/23 17:43 Dose: 4 mg Documented By: LAUREN Oxycodone HCl (Oxycodone Hcl Immed Release 5 Mg Tablet) 5 mg PO Q4H PRN PRN Reason: Pain, Moderate(Pain Scale 4-6) Last Admin: 11/18/23 03:55 Dose: 5 mg Documented By: BRETT Sodium Chloride (0.9 % Sodium Chloride Flush 3 Ml Syringe) 3 ml IVFLUSH [facility] Last Admin: 11/18/23 07:57 Dose: Not Given Documented By: BRUNILDA Non-Admin Reason: IV Running Labs 11/17/23 06:30 11/17/23 06:30 Procedures Date of Service Date of Service: 11/19/23 Progress Note: A&P Assessment and plan (1) Acute blood loss anemia: Status: Acute Assessment and Plan: posstop bleed after lap roosevelt, s/p laparotomy to control bleeding area doing well today abd soft some tenderness on right - has residual hematoma, will allow to resorb on its own DONATO drain with dark older blood, much less in quantity push PO intake Physically deconditioned - PT, increase activity - does not want him to go to Rehab Time Spent With Patient Time: Total time managing care of this patient today ____ minutes. Quality Stroke Does the patient have a stroke diagnosis?: No VTE Prior VTE?: No VTE Risk Level:: Medical - moderate - high VTE Device Contraindication: N/A - Device Ordered VTE Drug Contraindication: Treatment Not Indicated (Contraindicated in view of possible bleeding)
--- NOTE | 2023-11-18 10:34 | MHC.CM.PN ---
This CM met with pts per her request to discuss STR options. Pts has decided STR would be the best option for her to get better before going home. Pts preferences are 1. [facility], 2. [facility], 3. [facility], 4. [facility], 5. [facility]. If they do not have a bed available, pts states we could put a referral in to [facility], [facility], and [facility] in [place]. This CM placed STR referrals to pts top 5 choices, will continue to follow.
--- NOTE | 2023-11-18 12:54 | P.PNIM_ITS ---
Subjective Subjective Date of Service: 11/18/23 Interval History: feels weak diet improving Review of Systems Review of Systems: Yes all other systems are reviewed and are negative Physical Exam 2 Vital Signs: Vital Signs: Last Vital Signs Temp 98.5 F 11/18/23 11:52 Pulse 82 11/18/23 11:52 Resp 20 11/18/23 11:52 BP 136/65 11/18/23 11:52 Pulse Ox 93 11/18/23 11:52 O2 Del Method Room Air 11/18/23 11:52 O2 Flow Rate 1 11/18/23 07:49 Oxygen Flow Rate 2 11/17/23 15:00 BMI result Body Mass Index 33.4 Gen: in no acute distress HEENT: sclera anicteric, moist mucus membranes Neck: supple Lungs: clear to auscultation bilaterally Heart: regular rate and rhythm, no murmurs Abd: soft, surgical incisions clean/dry/intact, non-distended, DONATO drain with serosanguinous drainage Ext: no edema Skin: warm/well-perfused Neuro: alert and oriented x3, no focal findings Psych: appropriate affect Objective Data Active Medications Acetaminophen (Acetaminophen 325 Mg Tablet) 650 mg PO Q6H PRN PRN Reason: Pain, Mild (Pain Scale 1-3) Last Admin: 11/16/23 09:00 Dose: 650 mg Documented By: LAUREN Amlodipine Besylate (Amlodipine Besylate 5 Mg Tablet) 5 mg PO BEDTIME [facility]; Protocol Last Admin: 11/17/23 20:30 Dose: 5 mg Documented By: BRETT Amlodipine Besylate (Amlodipine Besylate 5 Mg Tablet) 5 mg PO DAILY [facility]; Protocol Last Admin: 11/18/23 07:57 Dose: 5 mg Documented By: BRUNILDA Amoxicillin/Clavulanate Potassium (Amoxicillin/Potassium Clav 875 Mg Tablet) 875 mg PO BID [facility] Stop: 11/18/23 21:01 Last Admin: 11/18/23 07:57 Dose: 875 mg Documented By: BRUNILDA Dextrose/Sodium Chloride (D5ns) 1,000 mls @ 80 mls/hr IVCONT .[id number] [facility] Last Admin: 11/18/23 03:56 Dose: 80 mls/hr Documented By: BRETT Losartan Potassium (Losartan Potassium 50 Mg Tablet) 100 mg PO BEDTIME [facility]; Protocol Last Admin: 11/17/23 20:31 Dose: 100 mg Documented By: BRETT Metoprolol Tartrate (Metoprolol Tartrate 25 Mg Tablet) 25 mg PO BID COUNTS INCLUDE [facility] BEDS AT [facility]; Protocol Last Admin: 11/18/23 07:57 Dose: 25 mg Documented By: BRUNILDA Morphine Sulfate (Morphine Sulfate 2 Mg/Ml Cartridge) 2 mg IVPUSH Q3H PRN; Protocol PRN Reason: Pain, Severe (Pain Scale 7-10) Last Admin: 11/16/23 22:09 Dose: 2 mg Documented By: BRETT Ondansetron HCl (Ondansetron Hcl 4 Mg/2 Ml Vial) 4 mg IVPUSH Q8H PRN PRN Reason: nausea Last Admin: 11/16/23 17:43 Dose: 4 mg Documented By: LAUREN Oxycodone HCl (Oxycodone Hcl Immed Release 5 Mg Tablet) 5 mg PO Q4H PRN PRN Reason: Pain, Moderate(Pain Scale 4-6) Last Admin: 11/18/23 09:53 Dose: 5 mg Documented By: BRUNILDA Sodium Chloride (0.9 % Sodium Chloride Flush 3 Ml Syringe) [facility] Last Admin: 11/18/23 07:57 Dose: Not Given Documented By: BRUNILDA Non-Admin Reason: IV Running Labs 11/17/23 06:30 11/17/23 06:30 Assessment and Plan (1) Hematoma: Status: Acute (2) Aspiration pneumonia: Status: Acute (3) Acute blood loss anemia: Status: Acute Plan d9 73yo M with HTN, HLD, GERD, CAD s/p LEELA to RCA 2007 admitted to [facility]urg for lap roosevelt done 11/10/23, returned to 11/11/23 for control of bleeder near cystic duct stump/hematoma evacuation/DONATO drain had syncopal episode likely due to vasovagal syndrome + acute blood loss postoperative paroxysmal AF cholelithiasis - s/p lap roosevelt, pain control/IS, DONATO drain management per Gen Surg paroxysmal AF - transient, due to postoperative state, AC not indicated, has not recurred - metoprolol 25 mg bid acute blood loss anemia - transfused 1u plts, 2u FFP, 4u pRBCs - H+H stable aspiration PNA - amp-sul 11/13-11/16, amox-clav 11/16-11/18 - WBCs normalized dependent pleural effusions - due to postop fluid shifts, encourage IS vasovagal syncope - resolved prerenal GUTIERREZ - resolved after transfusion + fluid resuscitation HTN - continue metoprolol, amlodipine, losartan CAD - ASA held for surgery, continue metoprolol GERD - PPI VTE ppx - SCDs dispo - PT eval: STR suggested In my clinical judgment, the patient requires continued inpatient hospitalization for the following reasons: postop care Total time managing care of this patient today: 35 minutes. Quality Stroke Does the patient have a stroke diagnosis?: No VTE Prior VTE?: No VTE Risk Level:: Medical - moderate - high VTE Device Contraindication: N/A - Device Ordered VTE Drug Contraindication: Treatment Not Indicated (Contraindicated in view of possible bleeding)
[2023-11-18] MEDS: Acetaminophen 325 MG TABLET 650 MG PO (15:00)
--- NOTE | 2023-11-18 15:37 | PM.EVENT ---
Event Note Date of Service: 11/19/23 Event Note: Seen on afternoon rounds He underwent physical therapy, was able to ambulate around the room Oral intake better He has been on the recliner for many hours Abdomen remained soft He feels subjectively better His is now unable to him being discharged to rehab Continue physical therapy DONATO drain with dark blood Continues to improve Time Spent With Patient Time: Total time managing care of this patient today ____ minutes.
[2023-11-18] MEDS: Dextrose 5 % and 0.9 % NaCl 1,000 ML 60 ML IVCONT (16:34)
[2023-11-18] MEDS: Losartan Potassium 50 MG TABLET 100 MG PO (19:55)
[2023-11-19] VITALS (9 sets, daily range): BP systolic 127–157; BP diastolic 61–71; PULSE 70–83; RESP 17–22; TEMP 36.2–38.4; O2SAT 92–95
[2023-11-19] MEDS: Acetaminophen 325 MG TABLET 650 MG PO ×3 (00:43→20:04)
--- NOTE | 2023-11-19 09:05 | HO.PM.IMPN ---
Subjective Subjective Date of Service: 11/19/23 Interval History: no further runs of AF tired, weak passing gas Review of Systems Review of Systems: Yes all other systems are reviewed and are negative Physical Exam Vital Signs: Vital Signs: Last Vital Signs Temp 98.3 F 11/19/23 07:56 Pulse 78 11/19/23 07:56 Resp 22 H 11/19/23 07:56 BP 149/71 H 11/19/23 07:56 Pulse Ox 93 11/19/23 07:56 O2 Del Method Nasal Cannula 11/19/23 07:56 O2 Flow Rate 1 11/19/23 07:56 Oxygen Flow Rate 2 11/17/23 15:00 BMI result Body Mass Index 33.4 Gen: in no acute distress HEENT: sclera anicteric, moist mucus membranes Neck: supple Lungs: clear to auscultation bilaterally Heart: regular rate and rhythm, no murmurs Abd: soft, surgical incisions clean/dry/intact, non-distended, DONATO drain with serosanguinous drainage Ext: no edema Skin: warm/well-perfused Neuro: alert and oriented x3, no focal findings Psych: appropriate affect Objective Data Active Medications Acetaminophen (Acetaminophen 325 Mg Tablet) 650 mg PO Q6H PRN PRN Reason: Pain, Mild (Pain Scale 1-3) Last Admin: 11/19/23 00:43 Dose: 650 mg Documented By: ZAKIYA Amlodipine Besylate (Amlodipine Besylate 5 Mg Tablet) 5 mg PO BEDTIME [facility]; Protocol Last Admin: 11/18/23 19:55 Dose: 5 mg Documented By: ABENA Amlodipine Besylate (Amlodipine Besylate 5 Mg Tablet) 5 mg PO DAILY [facility]; Protocol Last Admin: 11/18/23 07:57 Dose: 5 mg Documented By: BRUNILDA Dextrose/Sodium Chloride (D5ns) 1,000 mls @ 60 mls/hr IVCONT .[id number] [facility] Last Admin: 11/18/23 16:34 Dose: 60 mls/hr Documented By: BRUNILDA Losartan Potassium (Losartan Potassium 50 Mg Tablet) 100 mg PO BEDTIME [facility]; Protocol Last Admin: 11/18/23 19:55 Dose: 100 mg Documented By: ABENA Metoprolol Tartrate (Metoprolol Tartrate 25 Mg Tablet) 25 mg PO BID [facility]; Protocol Last Admin: 11/18/23 19:55 Dose: 25 mg Documented By: ABENA Morphine Sulfate (Morphine Sulfate 2 Mg/Ml Cartridge) 2 mg IVPUSH Q3H PRN; Protocol PRN Reason: Pain, Severe (Pain Scale 7-10) Last Admin: 11/16/23 22:09 Dose: 2 mg Documented By: BRETT Ondansetron HCl (Ondansetron Hcl 4 Mg/2 Ml Vial) 4 mg IVPUSH Q8H PRN PRN Reason: nausea Last Admin: 11/16/23 17:43 Dose: 4 mg Documented By: LAUREN Oxycodone HCl (Oxycodone Hcl Immed Release 5 Mg Tablet) 5 mg PO Q4H PRN PRN Reason: Pain, Moderate(Pain Scale 4-6) Last Admin: 11/18/23 09:53 Dose: 5 mg Documented By: BRUNILDA Sodium Chloride (0.9 % Sodium Chloride Flush 3 Ml Syringe) 3 ml IVFLUSH [facility] Last Admin: 11/19/23 00:37 Dose: 3 ml Documented By: YASMANIK Labs 11/17/23 06:30 11/17/23 06:30 Assessment and Plan (1) Hematoma: Status: Acute (2) Aspiration pneumonia: Status: Acute (3) Acute blood loss anemia: Status: Acute Plan d10 73yo M with HTN, HLD, GERD, CAD s/p LEELA to RCA 2007 admitted to Gen Surg for lap roosevelt done 11/10/23, returned to 11/11/23 for control of bleeder near cystic duct stump/hematoma evacuation/DONATO drain had syncopal episode likely due to vasovagal syndrome + acute blood loss postoperative paroxysmal AF cholelithiasis - s/p lap roosevelt, pain control/IS, DONATO drain management per Gen Surg paroxysmal AF - transient, due to postoperative state, AC not indicated, has not recurred - started metoprolol 25 mg bid acute blood loss anemia - transfused 1u plts, 2u FFP, 4u pRBCs - H+H stable aspiration PNA - amp-sul 11/13-11/16, amox-clav 11/16-11/18 - WBCs normalized dependent pleural effusions - due to postop fluid shifts, encourage IS vasovagal syncope - resolved prerenal GUTIERREZ - resolved after transfusion + fluid resuscitation HTN - continue metoprolol, amlodipine, losartan CAD - ASA held for surgery, continue metoprolol GERD - PPI VTE ppx - SCDs dispo - PT eval: STR suggested In my clinical judgment, the patient requires continued inpatient hospitalization for the following reasons: postop care Total time managing care of this patient today: 35 minutes. Quality Stroke Does the patient have a stroke diagnosis?: No VTE Prior VTE?: No VTE Risk Level:: Medical - moderate - high VTE Device Contraindication: N/A - Device Ordered VTE Drug Contraindication: Treatment Not Indicated (Contraindicated in view of possible bleeding)
--- NOTE | 2023-11-19 09:30 | PM.PNGS ---
Subjective Subjective Date of Service: 11/19/23 Interval history: feels well tolerating diet although intake still inconsistent - states food does not taste as well was able to ambulate down hallway with PT DONATO drain output much less, darker blood Physical Exam Vital Signs: Vital Signs: Last Vital Signs Temp 98.3 F 11/19/23 07:56 Pulse 78 11/19/23 07:56 Resp 22 H 11/19/23 07:56 BP 149/71 H 11/19/23 07:56 Pulse Ox 93 11/19/23 07:56 O2 Del Method Nasal Cannula 11/19/23 07:56 O2 Flow Rate 1 11/19/23 07:56 Oxygen Flow Rate 2 11/17/23 15:00 BMI result Body Mass Index 33.4 Const: General: comfortable and alert Eyes: Other: nonicteric Resp: Other: gets short of breath easily Effort & Inspection: normal respiratory effort Cardio: Rate: regular rate GI: Other: incision clean, DONATO with low output, dark blood Palpation (GI): Soft to palpation, not firm and no guarding : Other: urine clear Objective Data Active Medications Acetaminophen (Acetaminophen 325 Mg Tablet) 650 mg PO Q6H PRN PRN Reason: Pain, Mild (Pain Scale 1-3) Last Admin: 11/19/23 00:43 Dose: 650 mg Documented By: ZAKIYA Amlodipine Besylate (Amlodipine Besylate 5 Mg Tablet) 5 mg PO BEDTIME [facility]; Protocol Last Admin: 11/18/23 19:55 Dose: 5 mg Documented By: ABENA Amlodipine Besylate (Amlodipine Besylate 5 Mg Tablet) 5 mg PO DAILY [facility]; Protocol Last Admin: 11/18/23 07:57 Dose: 5 mg Documented By: BRUNILDA Dextrose/Sodium Chloride (D5ns) 1,000 mls @ 60 mls/hr IVCONT .[id number] [facility] Last Admin: 11/18/23 16:34 Dose: 60 mls/hr Documented By: BRUNILDA Losartan Potassium (Losartan Potassium 50 Mg Tablet) 100 mg PO BEDTIME [facility]; Protocol Last Admin: 11/18/23 19:55 Dose: 100 mg Documented By: ABENA Metoprolol Tartrate (Metoprolol Tartrate 25 Mg Tablet) 25 mg PO BID [facility]; Protocol Last Admin: 11/18/23 19:55 Dose: 25 mg Documented By: ABENA Morphine Sulfate (Morphine Sulfate 2 Mg/Ml Cartridge) 2 mg IVPUSH Q3H PRN; Protocol PRN Reason: Pain, Severe (Pain Scale 7-10) Last Admin: 11/16/23 22:09 Dose: 2 mg Documented By: BRETT Ondansetron HCl (Ondansetron Hcl 4 Mg/2 Ml Vial) 4 mg IVPUSH Q8H PRN PRN Reason: nausea Last Admin: 11/16/23 17:43 Dose: 4 mg Documented By: LAUREN Oxycodone HCl (Oxycodone Hcl Immed Release 5 Mg Tablet) 5 mg PO Q4H PRN PRN Reason: Pain, Moderate(Pain Scale 4-6) Last Admin: 11/18/23 09:53 Dose: 5 mg Documented By: BRUNILDA Sodium Chloride (0.9 % Sodium Chloride Flush 3 Ml Syringe) 3 ml IVFLUSH [facility] Last Admin: 11/19/23 00:37 Dose: 3 ml Documented By: YASMANIK Labs 11/17/23 06:30 11/17/23 06:30 Procedures Date of Service Date of Service: 11/19/23 Progress Note: A&P Assessment and plan (1) Postoperative anemia due to acute blood loss: Status: Acute Assessment and Plan: postop bleed after cholecystectomy DONATO drain much less, dark blood Hg has been steady undergoing PT for deconditioning push PO intake receptive to SNF placement overall, much improved Time Spent With Patient Time: Total time managing care of this patient today ____ minutes. Quality Stroke Does the patient have a stroke diagnosis?: No VTE Prior VTE?: No VTE Risk Level:: Medical - moderate - high VTE Device Contraindication: N/A - Device Ordered VTE Drug Contraindication: Treatment Not Indicated (Contraindicated in view of possible bleeding)
[2023-11-19] MEDS: Metoprolol Tartrate 25 MG TABLET PO ×2 (09:37→20:04)
[2023-11-19] MEDS: amLODIPine Besylate 5 MG TABLET PO ×2 (09:37→20:04)
[2023-11-19] MEDS: oxyCODONE HCl Immed Release 5 MG TABLET PO ×2 (09:37→13:44)
[2023-11-19] MEDS: Dextrose 5 % and 0.9 % NaCl 1,000 ML 60 ML IVCONT (09:42)
--- NOTE | 2023-11-19 12:36 | PM.EVENT ---
Event Note Date of Service: 11/19/23 Event Note: pt seen for midday rounds states he ate 1/3 of breakfast has complained that pt needs more help with feeding and getting out of bed pt also with exercise intolerance - gets more short of breath with exercise will add Ensure likely to have abdl pain and early satiety with meals in view of hematoma intrabdominally explained above to will try to facilitate bedside nursing care reviewed with Hospitalist laura David cath Time Spent With Patient Time: Total time managing care of this patient today ____ minutes.
--- NOTE | 2023-11-19 14:28 | MHC.CM.PN ---
EMR reviewed and per MD rounds, pt is not medically cleared for D/C due to continued need for post-op care. This CM met with pt and his per their request. Pts would like him to go to [facility] at D/C. This CM placed referral to [facility].
--- NOTE | 2023-11-19 15:47 | P.EN_ITS ---
Event Note Date of Service: 11/19/23 Event Note: able to walk hallway this afternoon - more than previously still with some exercise intolerance on 1-2 LPM O2 by NC able to eat some, but appetite poor, with early satiety - likely from intraabdl hematoma DONATO drain much less output, dark blood abd remains soft Ensure ordered had a long discussion with Charlene and nursing supervisor publications production Keny, and patient advocate Gaviota regarding 's concerns; her issues were addressed explained to pt and that he will stay in the hospital for while under oral intake adequate, and with better activity toleraance Time Spent With Patient Time: Total time managing care of this patient today ____ minutes.
--- NOTE | 2023-11-19 15:50 | PC.NURSE ---
Physical therapy at bedside.
[2023-11-19] MEDS: Losartan Potassium 50 MG TABLET 100 MG PO (20:05)
[2023-11-20] VITALS (10 sets, daily range): BP systolic 145–158; BP diastolic 66–78; PULSE 63–87; RESP 16–20; TEMP 36.6–37.8; O2SAT 88–96
[2023-11-20] MEDS: Acetaminophen 325 MG TABLET 650 MG PO ×2 (03:55→13:27)
--- NOTE | 2023-11-20 07:10 | PC.NURSE ---
sharan drained at 07:10. 40mLs of serosanguineous fluid
[2023-11-20] MEDS: amLODIPine Besylate 5 MG TABLET PO ×2 (08:35→20:32)
[2023-11-20] MEDS: oxyCODONE HCl Immed Release 5 MG TABLET PO ×2 (08:35→15:27)
[2023-11-20] MEDS: Metoprolol Tartrate 25 MG TABLET PO ×2 (08:36→20:32)
--- NOTE | 2023-11-20 08:54 | P.PNGS_ITS ---
Subjective Subjective Date of Service: 11/20/23 Interval history: Overall patient feels improved however still feels pain after eating. Tried sipping on ensure but after taking a small amount reported increased pain. Denies nausea or vomiting. Would like to get out of bed and ambulate again today. Did fairly well yesterday. DONATO producing serous fluid today. Physical Exam 2 Vital Signs: Vital Signs: Last Vital Signs Temp 97.9 F 11/20/23 08:17 Pulse 79 11/20/23 08:17 Resp 16 11/20/23 08:17 BP 152/78 H 11/20/23 08:17 Pulse Ox 93 11/20/23 08:17 O2 Del Method Nasal Cannula 11/20/23 08:17 O2 Flow Rate 2 11/20/23 08:17 Oxygen Flow Rate 2 11/19/23 11:41 BMI result Body Mass Index 33.4 Const: General: comfortable and alert Eyes: Other: nonicteric Resp: Other: gets short of breath easily Effort & Inspection: normal respiratory effort Cardio: Rate: regular rate GI: Other: incision clean, DONATO with low output, serous fluid only Palpation (GI): Soft to palpation, not firm and no guarding : Other: urine clear Objective Data Active Medications Acetaminophen (Acetaminophen 325 Mg Tablet) 650 mg PO Q6H PRN PRN Reason: Pain, Mild (Pain Scale 1-3) Last Admin: 11/20/23 03:55 Dose: 650 mg Documented By: JASBIR Amlodipine Besylate (Amlodipine Besylate 5 Mg Tablet) 5 mg PO BEDTIME [facility]; Protocol Last Admin: 11/19/23 20:04 Dose: 5 mg Documented By: JASBIR Amlodipine Besylate (Amlodipine Besylate 5 Mg Tablet) 5 mg PO DAILY [facility]; Protocol Last Admin: 11/20/23 08:35 Dose: 5 mg Documented By: ZONIA Losartan Potassium (Losartan Potassium 50 Mg Tablet) 100 mg PO BEDTIME [facility]; Protocol Last Admin: 11/19/23 20:05 Dose: 100 mg Documented By: JASBIR Metoprolol Tartrate (Metoprolol Tartrate 25 Mg Tablet) 25 mg PO BID [facility]; Protocol Last Admin: 11/20/23 08:36 Dose: 25 mg Documented By: ZONIA Morphine Sulfate (Morphine Sulfate 2 Mg/Ml Cartridge) 2 mg IVPUSH Q3H PRN; Protocol PRN Reason: Pain, Severe (Pain Scale 7-10) Last Admin: 11/16/23 22:09 Dose: 2 mg Documented By: BRETT Ondansetron HCl (Ondansetron Hcl 4 Mg/2 Ml Vial) 4 mg IVPUSH Q8H PRN PRN Reason: nausea Last Admin: 11/16/23 17:43 Dose: 4 mg Documented By: LAUREN Oxycodone HCl (Oxycodone Hcl Immed Release 5 Mg Tablet) 5 mg PO Q4H PRN PRN Reason: Pain, Moderate(Pain Scale 4-6) Last Admin: 11/20/23 08:35 Dose: 5 mg Documented By: ZONIA Sodium Chloride (0.9 % Sodium Chloride Flush 3 Ml Syringe) 3 ml IVFLUSH [facility] Last Admin: 11/20/23 08:36 Dose: 3 ml Documented By: ZONIA Labs 11/17/23 06:30 11/17/23 06:30 Procedures Date of Service Date of Service: 11/20/23 Progress Note: A&P Assessment and plan (1) Postoperative anemia due to acute blood loss: Status: Acute Assessment and Plan: postop bleed after cholecystectomy DONATO drain much less, serous fluid only Will recheck CBC in a.m. Continue PT for deconditioning push PO intake receptive to SNF placement overall, much improved Time Spent With Patient Time: Total time managing care of this patient today ____ minutes. Quality Stroke Does the patient have a stroke diagnosis?: No VTE Prior VTE?: No VTE Risk Level:: Medical - moderate - high VTE Device Contraindication: N/A - Device Ordered VTE Drug Contraindication: Treatment Not Indicated (Contraindicated in view of possible bleeding)
--- NOTE | 2023-11-20 11:40 | HO.PM.IMPN ---
Subjective Subjective Date of Service: 11/20/23 Interval History: poor PO intake some abd pain with eating passing gas minimal stool Review of Systems Review of Systems: Yes all other systems are reviewed and are negative Physical Exam Vital Signs: Vital Signs: Last Vital Signs Temp 99.1 F 11/20/23 11:22 Pulse 85 11/20/23 11:22 Resp 20 11/20/23 11:22 BP 158/72 H 11/20/23 11:22 Pulse Ox 92 11/20/23 11:22 O2 Del Method Room Air 11/20/23 11:22 O2 Flow Rate 2 11/20/23 08:17 Oxygen Flow Rate 2 11/19/23 11:41 BMI result Body Mass Index 33.4 Gen: in no acute distress HEENT: sclera anicteric, moist mucus membranes Neck: supple Lungs: clear to auscultation bilaterally Heart: regular rate and rhythm, no murmurs Abd: soft, non-tender, non-distended, incisions intact, DONATO with serous fluid Ext: no edema Skin: warm/well-perfused Neuro: alert and oriented x3, no focal findings Psych: appropriate affect Objective Data Active Medications Acetaminophen (Acetaminophen 325 Mg Tablet) 650 mg PO Q6H PRN PRN Reason: Pain, Mild (Pain Scale 1-3) Last Admin: 11/20/23 03:55 Dose: 650 mg Documented By: JASBIR Amlodipine Besylate (Amlodipine Besylate 5 Mg Tablet) 5 mg PO BEDTIME [facility]; Protocol Last Admin: 11/19/23 20:04 Dose: 5 mg Documented By: JASBIR Amlodipine Besylate (Amlodipine Besylate 5 Mg Tablet) 5 mg PO DAILY [facility]; Protocol Last Admin: 11/20/23 08:35 Dose: 5 mg Documented By: ZONIA Losartan Potassium (Losartan Potassium 50 Mg Tablet) 100 mg PO BEDTIME [facility]; Protocol Last Admin: 11/19/23 20:05 Dose: 100 mg Documented By: JASBIR Metoprolol Tartrate (Metoprolol Tartrate 25 Mg Tablet) 25 mg PO BID [facility]; Protocol Last Admin: 11/20/23 08:36 Dose: 25 mg Documented By: ZONIA Morphine Sulfate (Morphine Sulfate 2 Mg/Ml Cartridge) 2 mg IVPUSH Q3H PRN; Protocol PRN Reason: Pain, Severe (Pain Scale 7-10) Last Admin: 11/16/23 22:09 Dose: 2 mg Documented By: BRETT Ondansetron HCl (Ondansetron Hcl 4 Mg/2 Ml Vial) 4 mg IVPUSH Q8H PRN PRN Reason: nausea Last Admin: 11/16/23 17:43 Dose: 4 mg Documented By: LAUREN Oxycodone HCl (Oxycodone Hcl Immed Release 5 Mg Tablet) 5 mg PO Q4H PRN PRN Reason: Pain, Moderate(Pain Scale 4-6) Last Admin: 11/20/23 08:35 Dose: 5 mg Documented By: ZONIA Sodium Chloride (0.9 % Sodium Chloride Flush 3 Ml Syringe) [facility] Last Admin: 11/20/23 08:36 Dose: 3 ml Documented By: ZONIA Labs 11/17/23 06:30 11/17/23 06:30 Assessment and Plan (1) Hematoma: Status: Acute (2) Aspiration pneumonia: Status: Acute (3) Acute blood loss anemia: Status: Acute Plan d11 73yo M with HTN, HLD, GERD, CAD s/p LEELA to RCA 2007 admitted to [facility] for lap roosevelt done 11/10/23, returned to 11/11/23 for control of bleeder near cystic duct stump/hematoma evacuation/DONATO drain had syncopal episode likely due to vasovagal syndrome + acute blood loss postoperative paroxysmal AF cholelithiasis - s/p lap roosevelt, pain control/IS, DONATO drain management per Gen Surg paroxysmal AF - transient, due to postoperative state, AC not indicated, has not recurred - continue metoprolol tartrate 25 mg bid acute blood loss anemia - transfused 1u plts, 2u FFP, 4u pRBCs - H+H stable aspiration PNA - amp-sul 11/13-11/16, amox-clav 11/16-11/18 - WBCs normalized dependent pleural effusions - due to postop fluid shifts, encourage IS vasovagal syncope - resolved prerenal GUTIERREZ - resolved after transfusion + fluid resuscitation HTN - continue metoprolol tartrate, amlodipine, losartan CAD - ASA held for surgery, continue metoprolol GERD - PPI VTE ppx - SCDs dispo - PT eval: STR suggested Thank you for this consultation. We are signing off the case at this time. Please communicate with us if any new medical questions arise. Total time managing care of this patient today: 35 minutes. Quality Stroke Does the patient have a stroke diagnosis?: No VTE Prior VTE?: No VTE Risk Level:: Medical - moderate - high VTE Device Contraindication: N/A - Device Ordered VTE Drug Contraindication: Treatment Not Indicated (Contraindicated in view of possible bleeding)
--- NOTE | 2023-11-20 16:49 | PC.NURSE ---
patient ambulated on the hallway 100 feet with the walker with RN assistance , tolerated fair
[2023-11-20] MEDS: ondansetron HCL 4 MG/2 ML VIAL IVPUSH (20:01)
[2023-11-20] MEDS: Losartan Potassium 50 MG TABLET 100 MG PO (20:32)
--- NOTE | 2023-11-20 22:37 | PC.NURSE ---
oxygen saturation 88% on RA while sleeping , 2L via NC applied, oxygen saturation 95%
[2023-11-21] VITALS (10 sets, daily range): BP systolic 92–146; BP diastolic 50–66; PULSE 67–89; RESP 17–18; TEMP 36.5–37.9; O2SAT 92–99
[2023-11-21 06:48] LABS: MANUAL DIFF FLAG NO
[2023-11-21 06:51] LABS: Basophils Percent Auto 0.2 % (0-2); Eosinophils Absolute Auto 0.1 X10*3/uL (0.0-0.4); Eosinophils Percent Auto 0.4 % (0-4); Hematocrit 24.9 % (42.0-52.0); Hemoglobin 8.6 g/dl (14.0-18.0); Imm Gran Abs Auto 0.08 X10*3/uL (0.00-0.03); Imm Gran Pct Auto 0.6 % (0.0-0.4); Lymphocytes Absolute Auto 0.8 X10*3/uL (1.2-4.9); Lymphocytes Percent Auto 5.8 % (20-40); Mean Corpuscular HGB Conc 34.5 g/dl (31.0-36.0); Mean Corpuscular Hemoglobin 32.1 pg (27.0-33.0); Mean Corpuscular Volume 92.9 fL (80.0-98.0); Mean Platelet Volume 9.3 fL (9.4-12.4); Monocytes Absolute Auto 1.2 X10*3/uL (0.1-1.2); Monocytes Percent Auto 8.5 % (2-11); Neutrophils Absolute Auto 11.5 x10*3/uL (2.0-8.3); Neutrophils Percent Auto 84.5 % (45-73); Platelet Count 364 X10*3/uL (160-400); Red Blood Count 2.68 X10*6/uL (4.60-5.80); Red Cell Distribution Width 13.5 % (11.0-16.0); White Blood Count 13.6 X10*3/uL (4.8-10.8)
[2023-11-21] MEDS: Metoprolol Tartrate 25 MG TABLET PO ×2 (09:12→20:53)
[2023-11-21] MEDS: amLODIPine Besylate 5 MG TABLET PO ×2 (09:12→20:53)
[2023-11-21] MEDS: Acetaminophen 325 MG TABLET 650 MG PO ×2 (09:12→20:57)
[2023-11-21] MEDS: oxyCODONE HCl Immed Release 5 MG TABLET PO ×3 (09:12→20:54)
--- NOTE | 2023-11-21 10:00 | P.PNGS_ITS ---
Subjective Subjective Date of Service: 11/21/23 Interval history: Patient reports having a reasonably good day yesterday, ambulating to nurse's station and back. Was able to eat some food but does report increased pain after eating. Denies any nausea or vomiting. Passing flatus and BM. Physical Exam 2 Vital Signs: Vital Signs: Last Vital Signs Temp 99.6 F 11/21/23 07:57 Pulse 89 11/21/23 07:57 Resp 17 11/21/23 07:57 BP 136/63 11/21/23 07:57 Pulse Ox 93 11/21/23 07:57 O2 Del Method Nasal Cannula 11/21/23 07:57 O2 Flow Rate 2 11/21/23 07:57 Oxygen Flow Rate 2 11/19/23 11:41 BMI result Body Mass Index 33.4 Const: General: comfortable and alert Eyes: Other: nonicteric Resp: Other: gets short of breath easily Effort & Inspection: normal respiratory effort Cardio: Rate: regular rate GI: Other: incision clean, DONATO with low output, serous fluid only Palpation (GI): Soft to palpation, not firm and no guarding : Other: urine clear Objective Data Active Medications Acetaminophen (Acetaminophen 325 Mg Tablet) 650 mg PO Q6H PRN PRN Reason: Pain, Mild (Pain Scale 1-3) Last Admin: 11/21/23 09:12 Dose: 650 mg Documented By: COTEMA Amlodipine Besylate (Amlodipine Besylate 5 Mg Tablet) 5 mg PO BEDTIME [facility]; Protocol Last Admin: 11/20/23 20:32 Dose: 5 mg Documented By: KAUSHIK Amlodipine Besylate (Amlodipine Besylate 5 Mg Tablet) 5 mg PO DAILY [facility]; Protocol Last Admin: 11/21/23 09:12 Dose: 5 mg Documented By: COTEMA Losartan Potassium (Losartan Potassium 50 Mg Tablet) 100 mg PO BEDTIME [facility]; Protocol Last Admin: 11/20/23 20:32 Dose: 100 mg Documented By: KAUSHIK Metoprolol Tartrate (Metoprolol Tartrate 25 Mg Tablet) 25 mg PO BID [facility]; Protocol Last Admin: 11/21/23 09:12 Dose: 25 mg Documented By: COTEMA Morphine Sulfate (Morphine Sulfate 2 Mg/Ml Cartridge) 2 mg IVPUSH Q3H PRN; Protocol PRN Reason: Pain, Severe (Pain Scale 7-10) Last Admin: 11/16/23 22:09 Dose: 2 mg Documented By: BRETT Ondansetron HCl (Ondansetron Hcl 4 Mg/2 Ml Vial) 4 mg IVPUSH Q8H PRN PRN Reason: nausea Last Admin: 11/20/23 20:01 Dose: 4 mg Documented By: KAUSHIK Oxycodone HCl (Oxycodone Hcl Immed Release 5 Mg Tablet) 5 mg PO Q4H PRN PRN Reason: Pain, Moderate(Pain Scale 4-6) Last Admin: 11/21/23 09:12 Dose: 5 mg Documented By: SWATI Sodium Chloride (0.9 % Sodium Chloride Flush 3 Ml Syringe) 3 ml IVFLUSH QSHIFT [facility] Last Admin: 11/21/23 09:13 Dose: 3 ml Documented By: SWATI Labs 11/21/23 05:50 11/17/23 06:30 Labs: Laboratory Results - last 24 hr 11/21/23 05:50 MCV 92.9 MCH 32.1 MCHC 34.5 RDW 13.5 Plt Count 364 MPV 9.3 L Immature Gran % (Auto) 0.6 H Neut % (Auto) 84.5 H Lymph % (Auto) 5.8 L [place] % (Auto) 8.5 Eos % (Auto) 0.4 Baso % (Auto) 0.2 Lymph # (Auto) 0.8 L [place] # (Auto) 1.2 Eos # (Auto) 0.1 Baso # (Auto) 0.0 Abs Immat Gran (auto) 0.08 H Absolute Neuts (auto) 11.5 H Absolute Nucleated RBC 0.000 Nucleated RBC % (auto) 0.0 Procedures Date of Service Date of Service: 11/21/23 Progress Note: A&P Assessment and plan (1) Postoperative anemia due to acute blood loss: Status: Acute Assessment and Plan: POD #11 s/p laparoscopic cholecystectomy, POD # 10 laparotomy, control of gallbladder fossa bleeding, evacuation of hematoma. Patient making slow improvement with increase in p.o. intake. Patient was able to ambulate yesterday and plans to ambulate further today in the hallways. DONATO output is serous. H&H relatively stable, but has not increased. Increased activity and p.o. intake encouraged. Time Spent With Patient Time: Total time managing care of this patient today ____ minutes. Quality Stroke Does the patient have a stroke diagnosis?: No VTE Prior VTE?: No VTE Risk Level:: Medical - moderate - high VTE Device Contraindication: N/A - Device Ordered VTE Drug Contraindication: Treatment Not Indicated (Contraindicated in view of possible bleeding)
--- NOTE | 2023-11-21 10:51 | MHC.CM.PN ---
CM spoke to pt and his re: DC plan acute rehab vs. STR. Pts expressed that acute rehab will likely be too difficult for pt at this time. CM reviewed STR for pt choice, [facility] is first choice, update sent. Pt and also want the other STR's that have said yes to be considered, so will have them keep following.
[2023-11-21] MEDS: Losartan Potassium 50 MG TABLET 100 MG PO (20:53)
--- NOTE | 2023-11-21 21:57 | PC.NURSE ---
patient encouraged to ambulate ,use IS , increase PO intake, RN assisted pt to get up and stand up , pt took few steps and than decided to go back on the recliner, refused dinner . RN offer other options : toast , tea but pt refused . He is drinking water and clear Ensure with total assistance, he is able to use his upper extremities to feed himself but needs constant cuing . Pt has very flat affect, doesn't converse much , most of the time his eyes are closed, he reports being in pain and sick , no vomiting.
--- NOTE | 2023-11-21 23:42 | PC.NURSE ---
Addendum entered by Carolina Dejesus, RN 11/22/23 00:15: IV bolus 500 ml , new IV# 20 to lt hand Original Note: BP 92/50 , diaphoretic, previous temp 100.3 down to 98.7 , pt denied sob at rest , no dizziness , DR Fernandez notified PLAN: NS 250 ml IV bolus over 1 hr , labs , be cautious with BP meds
[2023-11-22] VITALS (10 sets, daily range): BP systolic 111–144; BP diastolic 56–67; PULSE 71–94; RESP 16–20; TEMP 37.2–37.9; O2SAT 92–95
[2023-11-22] MEDS: 0.9 % Sodium Chloride 500 ML 250 ML IV (00:20)
[2023-11-22 00:31] LABS: Hemoglobin 8.1 g/dl (14.0-18.0); Mean Corpuscular HGB Conc 33.8 g/dl (31.0-36.0); Mean Corpuscular Hemoglobin 31.9 pg (27.0-33.0); Mean Corpuscular Volume 94.5 fL (80.0-98.0); Mean Platelet Volume 8.9 fL (9.4-12.4); Platelet Count 368 X10*3/uL (160-400); Red Blood Count 2.54 X10*6/uL (4.60-5.80); Red Cell Distribution Width 13.6 % (11.0-16.0); White Blood Count 13.4 X10*3/uL (4.8-10.8)
[2023-11-22] MEDS: ondansetron HCL 4 MG/2 ML VIAL IVPUSH (00:36)
[2023-11-22] MEDS: Acetaminophen 325 MG TABLET 650 MG PO ×2 (00:38→16:00)
[2023-11-22 00:41] LABS: Lactic Acid 1.3 mmol/L (0.5-2.0)
[2023-11-22 00:49] LABS: Alanine Aminotransferase 102 U/L (0-40); Albumin Level 2.9 g/dL (3.5-5.0); Alkaline Phosphatase 147 U/L (39-117); Anion Gap 11 (12-20); Aspartate Amino Transferase 83 U/L (5-37); Bilirubin Total 1.1 mg/dL (0.0-1.0); Blood Urea Nitrogen 22 mg/dL (9-16); Calcium 8.5 mg/dL (8.4-10.2); Carbon Dioxide 24 mmol/L (22-29); Chloride 103 mmol/L (96-108); Creatinine Clr Calc Pharmacy 67.2; Estimated Glomerular Filt Rate > 60; Glucose Random 175 mg/dL (60-115); Potassium 3.6 mmol/L (3.3-5.1); Sodium 134 mmol/L (135-145); Total Protein 6.2 g/dL (6.5-8.0)
[2023-11-22] MEDS: oxyCODONE HCl Immed Release 5 MG TABLET PO (05:48)
--- NOTE | 2023-11-22 06:59 | PC.NURSE ---
Assumed care of patient at 2345. Stat orders in place by covering Dr. Jim Rowe on assuming care for recent temp 100.3 po and soft BP 92/50 prior to assuming care. PO temp obtained by blog writer was 98.7. Skin normothermic. Pt denied chills. Labs obtained including lactic acid and BCx2 obtained as ordered. Bolus given after labs were obtained to ensure accurate H+H given pt course with abdominal hematoma. Zofran given for +n/-v with +effect, denied further nausea. Po intake encouraged and tolerating since. Midline surgical incision with laure and ABD are c/d/i. Abdomen soft. +Abdominal binder continues in place. DONATO drain to RLQ with scant serous output for blog writer. DSD c/d/i. Tylenol given early per MD for pain as narcotics were deferred at that time for soft pressures per MD written order. Repeat BP after bolus finished was 122/60, later 129/61 on scheduled vitals. Prn oxycodone given with +effect reported. Pt resting in bed without distress on frequent rounding. See shift assessments and EMAR for full details. Handoff report given to oncoming RN 06:45.
--- NOTE | 2023-11-22 08:12 | PM.PNGS ---
Subjective Subjective Date of Service: 11/23/23 Interval history: says oral intake improving Ambulated down hallway yesterday Still gets short of breath easily As per nurse, had fever last night Physical Exam Vital Signs: Vital Signs: Last Vital Signs Temp 99.5 F 11/22/23 08:00 Pulse 94 11/22/23 08:00 Resp 20 11/22/23 08:00 BP 120/57 L 11/22/23 08:00 Pulse Ox 93 11/22/23 08:00 O2 Del Method Nasal Cannula 11/22/23 08:00 O2 Flow Rate 1.5 11/22/23 08:00 Oxygen Flow Rate 2 11/19/23 11:41 BMI result Body Mass Index 33.4 Const: General: comfortable Resp: Other: Gets short of breath with exertion Cardio: Rhythm: regular rhythm GI: Other: Soft, DONATO drain minimal output, incision clean Objective Data Active Medications Acetaminophen (Acetaminophen 325 Mg Tablet) 650 mg PO Q6H PRN PRN Reason: Pain, Mild (Pain Scale 1-3) Last Admin: 11/22/23 00:38 Dose: 650 mg Documented By: JONY Acetaminophen (Acetaminophen 325 Mg Tablet) 975 mg PO Q6H PRN PRN Reason: headache Amlodipine Besylate (Amlodipine Besylate 5 Mg Tablet) 5 mg PO BEDTIME [facility]; Protocol Last Admin: 11/21/23 20:53 Dose: 5 mg Documented By: KAUSHIK Amlodipine Besylate (Amlodipine Besylate 5 Mg Tablet) 5 mg PO DAILY [facility]; Protocol Last Admin: 11/21/23 09:12 Dose: 5 mg Documented By: COTPRISCILLA Losartan Potassium (Losartan Potassium 50 Mg Tablet) 100 mg PO BEDTIME [facility]; Protocol Last Admin: 11/21/23 20:53 Dose: 100 mg Documented By: KAUSHIK Metoclopramide HCl (Metoclopramide Hcl 10 Mg/2 Ml Vial) 5 mg IVPUSH Q6H PRN PRN Reason: Nausea and Vomiting Metoprolol Tartrate (Metoprolol Tartrate 25 Mg Tablet) 25 mg PO BID [facility]; Protocol Last Admin: 11/21/23 20:53 Dose: 25 mg Documented By: KAUSHIK Morphine Sulfate (Morphine Sulfate 2 Mg/Ml Cartridge) 2 mg IVPUSH Q3H PRN; Protocol PRN Reason: Pain, Severe (Pain Scale 7-10) Last Admin: 11/16/23 22:09 Dose: 2 mg Documented By: BRETT Ondansetron HCl (Ondansetron Hcl 4 Mg/2 Ml Vial) 4 mg IVPUSH Q8H PRN PRN Reason: nausea Last Admin: 11/22/23 00:36 Dose: 4 mg Documented By: JONY Oxycodone HCl (Oxycodone Hcl Immed Release 5 Mg Tablet) 5 mg PO Q4H PRN PRN Reason: Pain, Moderate(Pain Scale 4-6) Last Admin: 11/22/23 05:48 Dose: 5 mg Documented By: JONY Sodium Chloride (0.9 % Sodium Chloride Flush 3 Ml Syringe) 3 ml IVFLUSH QSHIFT [facility] Last Admin: 11/22/23 00:20 Dose: 3 ml Documented By: JONY Labs 11/22/23 00:23 11/22/23 00:23 Labs: Laboratory Results - last 24 hr 11/22/23 00:23 MCV 94.5 MCH 31.9 MCHC 33.8 RDW 13.6 Plt Count 368 MPV 8.9 L Absolute Nucleated RBC 0.000 Nucleated RBC % (auto) 0.0 Anion Gap 11 L Estim Creat Clear Calc 67.2 Estimated GFR > 60 Random Glucose 175 H Lactic Acid 1.3 Calcium 8.5 Total Bilirubin 1.1 H AST 83 H ALT 102 H Alkaline Phosphatase 147 H Total Protein 6.2 L Albumin 2.9 L Procedures Date of Service Date of Service: 11/23/23 Progress Note: A&P Assessment and plan (1) Postoperative anemia due to acute blood loss: Status: Acute Assessment and Plan: Still with exertional dyspnea Continue physical therapy Check x-ray in view of fever DONATO drain with very scanty output Abdomen soft Incentive spirometry Time Spent With Patient Time: Total time managing care of this patient today ____ minutes. Quality Stroke Does the patient have a stroke diagnosis?: No VTE Prior VTE?: No VTE Risk Level:: Medical - moderate - high VTE Device Contraindication: N/A - Device Ordered VTE Drug Contraindication: Treatment Not Indicated (Contraindicated in view of possible bleeding)
[2023-11-22] MEDS: Metoprolol Tartrate 25 MG TABLET PO ×2 (09:16→20:34)
[2023-11-22] MEDS: amLODIPine Besylate 5 MG TABLET PO ×2 (09:17→20:34)
[2023-11-22] MEDS: Piperacillin Sodium/Tazobactam 3.375 GM in 0.9 % Sodium Chloride 50 ML IV ×2 (12:54→18:40)
--- NOTE | 2023-11-22 13:07 | P.PNIM_ITS ---
Subjective Subjective Date of Service: 11/23/23 Interval History: poor PO intake some abd pain but no change and thinks related to not taking PPI passing gas temp of 100 an episode of low bp overnight and given fluid Physical Exam 2 Vital Signs: Vital Signs: Last Vital Signs Temp 100.2 F 11/22/23 12:00 Pulse 84 11/22/23 12:00 Resp 20 11/22/23 12:00 BP 120/56 L 11/22/23 12:00 Pulse Ox 92 11/22/23 12:00 O2 Del Method Nasal Cannula 11/22/23 12:00 O2 Flow Rate 1.5 11/22/23 12:00 Oxygen Flow Rate 2 11/19/23 11:41 BMI result Body Mass Index 33.4 Gen: in no acute distress HEENT: sclera anicteric, moist mucus membranes Neck: supple Lungs: clear to auscultation bilaterally Heart: regular rate and rhythm, no murmurs Abd: soft, non-tender, non-distended, incisions intact, DONATO with serous fluid Ext: no edema Skin: warm/well-perfused Neuro: alert and oriented x3, no focal findings Psych: appropriate affect Const: Other: Gen: in no acute distress HEENT: sclera anicteric, moist mucus membranes Neck: supple Lungs: clear to auscultation bilaterally Heart: regular rate and rhythm, no murmurs Abd: soft, non-tender, non-distended, incisions intact, DONATO with serous fluid Ext: no edema Skin: warm/well-perfused Neuro: alert and oriented x3, no focal findings Psych: appropriate affect Objective Data Active Medications Acetaminophen (Acetaminophen 325 Mg Tablet) 650 mg PO Q6H PRN PRN Reason: Pain, Mild (Pain Scale 1-3) Last Admin: 11/22/23 00:38 Dose: 650 mg Documented By: JONY Acetaminophen (Acetaminophen 325 Mg Tablet) 975 mg PO Q6H PRN PRN Reason: headache Amlodipine Besylate (Amlodipine Besylate 5 Mg Tablet) 5 mg PO BEDTIME [facility]; Protocol Last Admin: 11/21/23 20:53 Dose: 5 mg Documented By: KAUSHIK Amlodipine Besylate (Amlodipine Besylate 5 Mg Tablet) 5 mg PO DAILY [facility]; Protocol Last Admin: 11/22/23 09:17 Dose: 5 mg Documented By: APPLE Piperacillin Sod/Tazobactam (Sod 3.375 gm/ Sodium Chloride) 50 mls @ 100 mls/hr IV ONCE ONE Stop: 11/22/23 13:12 Last Admin: 11/22/23 12:54 Dose: 100 mls/hr Documented By: ZONIA Losartan Potassium (Losartan Potassium 50 Mg Tablet) 100 mg PO BEDTIME [facility]; Protocol Last Admin: 11/21/23 20:53 Dose: 100 mg Documented By: KAUSHIK Metoclopramide HCl (Metoclopramide Hcl 10 Mg/2 Ml Vial) 5 mg IVPUSH Q6H PRN PRN Reason: Nausea and Vomiting Metoprolol Tartrate (Metoprolol Tartrate 25 Mg Tablet) 25 mg PO BID [facility]; Protocol Last Admin: 11/22/23 09:16 Dose: 25 mg Documented By: APPLE Morphine Sulfate (Morphine Sulfate 2 Mg/Ml Cartridge) 2 mg IVPUSH Q3H PRN; Protocol PRN Reason: Pain, Severe (Pain Scale 7-10) Last Admin: 11/16/23 22:09 Dose: 2 mg Documented By: BRETT Omeprazole (Omeprazole 20 Mg Capsule.Dr) 20 mg PO BID@0630,1630 [facility] Ondansetron HCl (Ondansetron Hcl 4 Mg/2 Ml Vial) 4 mg IVPUSH Q8H PRN PRN Reason: nausea Last Admin: 11/22/23 00:36 Dose: 4 mg Documented By: JONY Oxycodone HCl (Oxycodone Hcl Immed Release 5 Mg Tablet) 5 mg PO Q4H PRN PRN Reason: Pain, Moderate(Pain Scale 4-6) Last Admin: 11/22/23 05:48 Dose: 5 mg Documented By: JONY Sodium Chloride (0.9 % Sodium Chloride Flush 3 Ml Syringe) [facility] Last Admin: 11/22/23 12:59 Dose: 3 ml Documented By: ZONIA Labs 11/22/23 00:23 11/22/23 00:23 Labs: Laboratory Results - last 24 hr 11/22/23 00:23 MCV 94.5 MCH 31.9 MCHC 33.8 RDW 13.6 Plt Count 368 MPV 8.9 L Absolute Nucleated RBC 0.000 Nucleated RBC % (auto) 0.0 Anion Gap 11 L Estim Creat Clear Calc 67.2 Estimated GFR > 60 Random Glucose 175 H Lactic Acid 1.3 Calcium 8.5 Total Bilirubin 1.1 H AST 83 H ALT 102 H Alkaline Phosphatase 147 H Total Protein 6.2 L Albumin 2.9 L Assessment and Plan (1) Hematoma: Status: Acute (2) Aspiration pneumonia: Status: Acute (3) Acute blood loss anemia: Status: Acute Plan 73yo M with HTN, HLD, GERD, CAD s/p LEELA to RCA 2007 admitted to [facility]urg for lap roosevelt done 11/10/23, returned to 11/11/23 for control of bleeder near cystic duct stump/hematoma evacuation/DONATO drain had syncopal episode likely due to vasovagal syndrome + acute blood loss postoperative paroxysmal AF cholelithiasis - s/p lap roosevelt, pain control/IS, DONATO drain management per Gen Surg paroxysmal AF - transient, due to postoperative state, AC not indicated, has not recurred - continue metoprolol tartrate 25 mg bid acute blood loss anemia - transfused 1u plts, 2u FFP, 4u pRBCs - H+H stable aspiration PNA - amp-sul 11/13-11/16, amox-clav 11/16-11/18. Zosyn 11/22 - WBCs normalized Fever this morning, blood culture drawan and restarted on Zosyn dependent pleural effusions - due to postop fluid shifts, encourage IS vasovagal syncope - resolved prerenal GUTIERREZ - resolved after transfusion + fluid resuscitation HTN - continue metoprolol tartrate, amlodipine, losartan CAD - ASA held for surgery, continue metoprolol GERD - PPI VTE ppx - SCDs dispo - PT eval: STR suggested Total time managing care of this patient today: 35 minutes. Quality Stroke Does the patient have a stroke diagnosis?: No VTE Prior VTE?: No VTE Risk Level:: Medical - moderate - high VTE Device Contraindication: N/A - Device Ordered VTE Drug Contraindication: Treatment Not Indicated (Contraindicated in view of possible bleeding)
--- NOTE | 2023-11-22 13:48 | MHC.CM.PN ---
EMR reviewed and per MD rounds, pt is not medically cleared for D/C due to continued need for post-op care. DCP remains STR via BLS when medically cleared. CM will continue to follow.
--- NOTE | 2023-11-22 15:52 | PM.EVENT ---
Event Note Date of Service: 11/23/23 Event Note: still on recliner says he is tolerating his Ensure looks comfortable abd soft CXR - decreased lung volume, blunting on left CP angle encouraged on incentive spirometry Charlene says he still has poor oral intake pushed to take Ensure TID Hospitalist ffup Time Spent With Patient Time: Total time managing care of this patient today ____ minutes.
[2023-11-22] MEDS: Omeprazole 20 MG CAPSULE.DR PO (16:07)
[2023-11-22] MEDS: Losartan Potassium 50 MG TABLET 100 MG PO (20:34)
[2023-11-23] VITALS (7 sets, daily range): BP systolic 112–154; BP diastolic 56–74; PULSE 63–98; RESP 18–20; TEMP 36.1–37.2; O2SAT 92–97
[2023-11-23] MEDS: Piperacillin Sodium/Tazobactam 3.375 GM in 0.9 % Sodium Chloride 50 ML IV ×4 (01:32→18:05)
[2023-11-23] MEDS: Acetaminophen 325 MG TABLET 650 MG PO ×2 (01:33→08:08)
[2023-11-23] MEDS: Omeprazole 20 MG CAPSULE.DR PO ×2 (06:32→15:57)
[2023-11-23] MEDS: Metoprolol Tartrate 25 MG TABLET PO ×2 (08:07→20:32)
[2023-11-23] MEDS: amLODIPine Besylate 5 MG TABLET PO ×2 (08:08→20:31)
--- NOTE | 2023-11-23 08:45 | PM.PNGS ---
Subjective Subjective Date of Service: 11/24/23 Interval history: says he slept well tolerating Ensure no eventsd reported Physical Exam Vital Signs: Vital Signs: Last Vital Signs Temp 97.5 F 11/23/23 07:41 Pulse 82 11/23/23 07:41 Resp 20 11/23/23 07:41 BP 136/64 11/23/23 07:41 Pulse Ox 93 11/23/23 07:41 O2 Del Method Nasal Cannula 11/23/23 07:41 O2 Flow Rate 1.5 11/23/23 07:41 Oxygen Flow Rate 1.5 11/22/23 15:00 BMI result Body Mass Index 33.4 Const: Other: looks comfortable, alert General: comfortable Resp: Effort & Inspection: normal respiratory effort GI: Other: soft, DONATO drain - very scanty output : Other: urine appears concentrated Objective Data Active Medications Acetaminophen (Acetaminophen 325 Mg Tablet) 650 mg PO Q6H PRN PRN Reason: Pain, Mild (Pain Scale 1-3) Last Admin: 11/23/23 08:08 Dose: 650 mg Documented By: NIMA Acetaminophen (Acetaminophen 325 Mg Tablet) 975 mg PO Q6H PRN PRN Reason: headache Amlodipine Besylate (Amlodipine Besylate 5 Mg Tablet) 5 mg PO BEDTIME [facility]; Protocol Last Admin: 11/22/23 20:34 Dose: 5 mg Documented By: BRETT Amlodipine Besylate (Amlodipine Besylate 5 Mg Tablet) 5 mg PO DAILY [facility]; Protocol Last Admin: 11/23/23 08:08 Dose: 5 mg Documented By: NIMA Piperacillin Sod/Tazobactam (Sod 3.375 gm/ Sodium Chloride) 50 mls @ 100 mls/hr IV Q6H [facility] Last Infusion: 11/23/23 07:02 Dose: Infused Documented By: BRETT Lactated Ringer's (Lr) 1,000 mls @ 80 mls/hr IVCONT .[id number] [facility] Losartan Potassium (Losartan Potassium 50 Mg Tablet) 100 mg PO BEDTIME [facility]; Protocol Last Admin: 11/22/23 20:34 Dose: 100 mg Documented By: BRETT Metoclopramide HCl (Metoclopramide Hcl 10 Mg/2 Ml Vial) 5 mg IVPUSH Q6H PRN PRN Reason: Nausea and Vomiting Metoprolol Tartrate (Metoprolol Tartrate 25 Mg Tablet) 25 mg PO BID [facility]; Protocol Last Admin: 11/23/23 08:07 Dose: 25 mg Documented By: NIMA Morphine Sulfate (Morphine Sulfate 2 Mg/Ml Cartridge) 2 mg IVPUSH Q3H PRN; Protocol PRN Reason: Pain, Severe (Pain Scale 7-10) Last Admin: 11/16/23 22:09 Dose: 2 mg Documented By: BRETT Omeprazole (Omeprazole 20 Mg Capsule.Dr) 20 mg PO BID@0630,1630 [facility] Last Admin: 11/23/23 06:32 Dose: 20 mg Documented By: BRETT Ondansetron HCl (Ondansetron Hcl 4 Mg/2 Ml Vial) 4 mg IVPUSH Q8H PRN PRN Reason: nausea Last Admin: 11/22/23 00:36 Dose: 4 mg Documented By: JONY Oxycodone HCl (Oxycodone Hcl Immed Release 5 Mg Tablet) 5 mg PO Q4H PRN PRN Reason: Pain, Moderate(Pain Scale 4-6) Last Admin: 11/22/23 05:48 Dose: 5 mg Documented By: JONY Sodium Chloride (0.9 % Sodium Chloride Flush 3 Ml Syringe) [facility] Last Admin: 11/23/23 08:08 Dose: 3 ml Documented By: NIMA Labs 11/24/23 06:52 11/24/23 06:52 Microbiology Microbiology Results: Microbiology 11/22/23 00:23 Blood Culture - Preliminary Blood - Venous Prelim: GNR Gram Stain only 11/22/23 00:23 Blood Culture - Preliminary Blood - Venous Prelim: GNR Gram Stain only Procedures Date of Service Date of Service: 11/24/23 Progress Note: A&P Assessment and plan (1) Postoperative anemia due to acute blood loss: Status: Acute Assessment and Plan: Hg has been steady urine appears concentrated - will give IVF still with exercise intolerance - low Hg a factor push PT oral intake marginal still says food does not taste well also has postprandial pain, early satiety - likely from residual hematoma Ensure OOB He had blood cultures over the weekend now growing Gram-negative rods - will do a CT scan to rule out intra-abdominal infection, i.e. abscess Time Spent With Patient Time: Total time managing care of this patient today ____ minutes. Quality Stroke Does the patient have a stroke diagnosis?: No VTE Prior VTE?: No VTE Risk Level:: Medical - moderate - high VTE Device Contraindication: N/A - Device Ordered VTE Drug Contraindication: Treatment Not Indicated (Contraindicated in view of possible bleeding)
[2023-11-23] MEDS: Lactated Ringers 1,000 ML 80 ML IVCONT ×2 (08:47→20:40)
--- NOTE | 2023-11-23 09:57 | P.PNIM_ITS ---
Subjective Subjective Date of Service: 11/23/23 Interval History: f/ u on fever, PAF no fever, still with abdominal discomort, worst with food blood cultures 11/22 2/ GNR--on Zosyn Physical Exam 2 Vital Signs: Vital Signs: Last Vital Signs Temp 97.5 F 11/23/23 07:41 Pulse 82 11/23/23 07:41 Resp 20 11/23/23 07:41 BP 136/64 11/23/23 07:41 Pulse Ox 93 11/23/23 07:41 O2 Del Method Nasal Cannula 11/23/23 07:41 O2 Flow Rate 1.5 11/23/23 07:41 Oxygen Flow Rate 1.5 11/22/23 15:00 BMI result Body Mass Index 33.4 Gen: in no acute distress HEENT: sclera anicteric, moist mucus membranes Neck: supple Lungs: clear to auscultation bilaterally Heart: regular rate and rhythm, no murmurs Abd: soft, some tenderness, non-distended, incisions intact, Ext: no edema Skin: warm/well-perfused Neuro: alert and oriented x3, no focal findings Psych: appropriate affect Objective Data Active Medications Acetaminophen (Acetaminophen 325 Mg Tablet) 650 mg PO Q6H PRN PRN Reason: Pain, Mild (Pain Scale 1-3) Last Admin: 11/23/23 08:08 Dose: 650 mg Documented By: NIMA Acetaminophen (Acetaminophen 325 Mg Tablet) 975 mg PO Q6H PRN PRN Reason: headache Amlodipine Besylate (Amlodipine Besylate 5 Mg Tablet) 5 mg PO BEDTIME [facility]; Protocol Last Admin: 11/22/23 20:34 Dose: 5 mg Documented By: BRETT Amlodipine Besylate (Amlodipine Besylate 5 Mg Tablet) 5 mg PO DAILY [facility]; Protocol Last Admin: 11/23/23 08:08 Dose: 5 mg Documented By: NIMA Piperacillin Sod/Tazobactam (Sod 3.375 gm/ Sodium Chloride) 50 mls @ 100 mls/hr IV Q6H [facility] Last Infusion: 11/23/23 07:02 Dose: Infused Documented By: BRETT Lactated Ringer's (Lr) 1,000 mls @ 80 mls/hr IVCONT .[id number] [facility] Last Admin: 11/23/23 08:47 Dose: 80 mls/hr Documented By: NIMA Losartan Potassium (Losartan Potassium 50 Mg Tablet) 100 mg PO BEDTIME [facility]; Protocol Last Admin: 11/22/23 20:34 Dose: 100 mg Documented By: BRETT Metoclopramide HCl (Metoclopramide Hcl 10 Mg/2 Ml Vial) 5 mg IVPUSH Q6H PRN PRN Reason: Nausea and Vomiting Metoprolol Tartrate (Metoprolol Tartrate 25 Mg Tablet) 25 mg PO BID [facility]; Protocol Last Admin: 11/23/23 08:07 Dose: 25 mg Documented By: NIMA Morphine Sulfate (Morphine Sulfate 2 Mg/Ml Cartridge) 2 mg IVPUSH Q3H PRN; Protocol PRN Reason: Pain, Severe (Pain Scale 7-10) Last Admin: 11/16/23 22:09 Dose: 2 mg Documented By: BRETT Omeprazole (Omeprazole 20 Mg Capsule.Dr) 20 mg PO BID@0630,1630 [facility] Last Admin: 11/23/23 06:32 Dose: 20 mg Documented By: BRETT Ondansetron HCl (Ondansetron Hcl 4 Mg/2 Ml Vial) 4 mg IVPUSH Q8H PRN PRN Reason: nausea Last Admin: 11/22/23 00:36 Dose: 4 mg Documented By: JONY Oxycodone HCl (Oxycodone Hcl Immed Release 5 Mg Tablet) 5 mg PO Q4H PRN PRN Reason: Pain, Moderate(Pain Scale 4-6) Last Admin: 11/22/23 05:48 Dose: 5 mg Documented By: JONY Sodium Chloride (0.9 % Sodium Chloride Flush 3 Ml Syringe) 3 ml IVFLUSH [facility] Last Admin: 11/23/23 08:08 Dose: 3 ml Documented By: NIMA Labs 11/22/23 00:23 11/22/23 00:23 Microbiology Microbiology Results: Microbiology 11/22/23 00:23 Blood Culture - Preliminary Blood - Venous Prelim: GNR Gram Stain only 11/22/23 00:23 Blood Culture - Preliminary Blood - Venous Prelim: GNR Gram Stain only Assessment and Plan (1) Hematoma: Status: Acute (2) Aspiration pneumonia: Status: Acute (3) Acute blood loss anemia: Status: Acute Plan 73yo M with HTN, HLD, GERD, CAD s/p LEELA to RCA 2007 admitted to [facility]urg for lap roosevelt done 11/10/23, returned to 11/11/23 for control of bleeder near cystic duct stump/hematoma evacuation/DONATO drain had syncopal episode likely due to vasovagal syndrome + acute blood loss postoperative paroxysmal AF GNR bacteremia ? source, fever resolved -Continue Zosyn -ID consult - CT of abdomen/Pelvis to rule abdominal surce cholelithiasis - s/p lap roosevelt, pain control/IS, DONATO drain management per Gen Surg paroxysmal AF - transient, due to postoperative state, AC not indicated, has not recurred - continue metoprolol tartrate 25 mg bid acute blood loss anemia - transfused 1u plts, 2u FFP, 4u pRBCs - H+H stable; monitor aspiration PNA - amp-sul 11/13-11/16, amox-clav 11/16-11/18. Zosyn 11/22 dependent pleural effusions - due to postop fluid shifts, encourage IS vasovagal syncope - resolved prerenal GUTIERREZ - resolved after transfusion + fluid resuscitation HTN - continue metoprolol tartrate, amlodipine, losartan CAD - ASA held for surgery, continue metoprolol GERD - PPI VTE ppx - SCDs dispo - PT eval: STR suggested when acute issues resolved. Total time managing care of this patient today: 35 minutes. Quality Stroke Does the patient have a stroke diagnosis?: No VTE Prior VTE?: No VTE Risk Level:: Medical - moderate - high VTE Device Contraindication: N/A - Device Ordered VTE Drug Contraindication: Treatment Not Indicated (Contraindicated in view of possible bleeding)
[2023-11-23] MEDS: oxyCODONE HCl Immed Release 5 MG TABLET PO (11:58)
--- NOTE | 2023-11-23 15:45 | PM.EVENT ---
Event Note Date of Service: 11/24/23 Event Note: CT reviewed - ?large residual hematoma on the right flank area; no offical report yet likely causing him pain will review with IR if there is benefit to draining this explained above to pt and continue Zosyn - he has had no fever since yesterday push PO intake pain mgt Time Spent With Patient Time: Total time managing care of this patient today ____ minutes.
[2023-11-23] MEDS: oxyCODONE HCl Immed Release 5 MG TABLET 10 MG PO (15:56)
[2023-11-23] MEDS: Docusate Sodium 100 MG CAPSULE PO (20:31)
[2023-11-23] MEDS: Losartan Potassium 50 MG TABLET 100 MG PO (20:31)
--- NOTE | 2023-11-23 23:40 | P.CNID_ITS ---
History of Present Illness Data of Consult Service Date: 11/23/23 Requesting physician: Mark Wright Primary Care Provider: Agustin Mullen MD HPI Reason for consult: gram negative simon /sepsis He presents to hospital [facility] after lap choly and had syncopal episodes when supposed to be discharged. He had been placed on antibiotics with Unasyn 11/13-11/16,Augmentin 11/16-11/18 and piperacillin/tazobactam today. He has fever and chills and started on Zosyn CT without contrast show ?liver abscess and hematoma right lobe. Review of Systems 2 Review of Systems: Yes all other systems are reviewed and are negative [facility] Past Medical History Medical History (Updated 11/23/23 @ 23:44 by Linsey Willson MD) Fever of unknown origin Postoperative anemia due to acute blood loss Mustang disease Hematoma GERD (gastroesophageal reflux disease) Elevated cholesterol Low back pain Depression CAD (coronary artery disease) Stable angina Gallstones Scoliosis Carpal tunnel syndrome C2 cervical fracture Arthritis Hypertension Family History Family History Father HTN (hypertension) Cardiac arrest Mother HTN (hypertension) Stroke Sister HTN (hypertension) Cancer Family history: reviewed and not pertinent Surgical History Surgical History S/P laparoscopic cholecystectomy Hx of carpal tunnel repair History of esophagogastroduodenoscopy (EGD) H/O colonoscopy History of cardiac cath Social History Social History Household Members: Spouse Household Members Other:: tereza Housing: House Are you a primary patient care coordinator to a significant other at home: No Do you presently have visiting nurse or other home services: No Unable to assess alcohol history related to: Unable to respond Alcohol intake: never Patient Tobacco Use Status: Former Tobacco user Quit Date: 1970 Tobacco use type: Cigarette Years Smoked: 3 +/- service: Yes Meds Allergies Allergy/AdvReac Type Severity Reaction Status Date / Time No Known Allergies Allergy Verified 11/10/23 08:20 Active Medications: Current Medications Acetaminophen (Acetaminophen 325 Mg Tablet) 650 mg PO Q6H PRN PRN Reason: Pain, Mild (Pain Scale 1-3) Last Admin: 11/23/23 08:08 Dose: 650 mg Acetaminophen (Acetaminophen 325 Mg Tablet) 975 mg PO Q6H PRN PRN Reason: headache Amlodipine Besylate (Amlodipine Besylate 5 Mg Tablet) 5 mg PO BEDTIME [facility]; Protocol Last Admin: 11/23/23 20:31 Dose: 5 mg Amlodipine Besylate (Amlodipine Besylate 5 Mg Tablet) 5 mg PO DAILY [facility]; Protocol Last Admin: 11/23/23 08:08 Dose: 5 mg Docusate Sodium (Docusate Sodium 100 Mg Capsule) 100 mg PO BID [facility] Last Admin: 11/23/23 20:31 Dose: 100 mg Piperacillin Sod/Tazobactam (Sod 3.375 gm/ Sodium Chloride) 50 mls @ 100 mls/hr IV Q6H [facility] Last Infusion: 11/23/23 18:36 Dose: Infused Lactated Ringer's (Lr) 1,000 mls @ 80 mls/hr IVCONT .[id number] [facility] Last Admin: 11/23/23 20:40 Dose: 80 mls/hr Losartan Potassium (Losartan Potassium 50 Mg Tablet) 100 mg PO BEDTIME [facility]; Protocol Last Admin: 11/23/23 20:31 Dose: 100 mg Metoclopramide HCl (Metoclopramide Hcl 10 Mg/2 Ml Vial) 5 mg IVPUSH Q6H PRN PRN Reason: Nausea and Vomiting Metoprolol Tartrate (Metoprolol Tartrate 25 Mg Tablet) 25 mg PO BID [facility]; Protocol Last Admin: 11/23/23 20:32 Dose: 25 mg Morphine Sulfate (Morphine Sulfate 2 Mg/Ml Cartridge) 2 mg IVPUSH Q3H PRN; Protocol PRN Reason: Pain, Severe (Pain Scale 7-10) Last Admin: 11/16/23 22:09 Dose: 2 mg Omeprazole (Omeprazole 20 Mg Capsule.Dr) 20 mg PO BID@0630,1630 [facility] Last Admin: 11/23/23 15:57 Dose: 20 mg Ondansetron HCl (Ondansetron Hcl 4 Mg/2 Ml Vial) 4 mg IVPUSH Q8H PRN PRN Reason: nausea Last Admin: 11/22/23 00:36 Dose: 4 mg Oxycodone HCl (Oxycodone Hcl Immed Release 5 Mg Tablet) 10 mg PO Q4H PRN PRN Reason: Pain, Moderate(Pain Scale 4-6) Last Admin: 11/23/23 15:56 Dose: 10 mg Sodium Chloride (0.9 % Sodium Chloride Flush 3 Ml Syringe) 3 ml [facility] Last Admin: 11/23/23 15:30 Dose: Not Given Home Medications Medication Instructions Recorded Confirmed Last Taken Type aspirin 81 mg tablet,delayed 81 mg PO DAILY 01/13/21 11/05/23 11/09/23 History release (Adult Low Dose Aspirin) atorvastatin 20 mg tablet 20 mg PO Q OTHER DAY 01/13/21 11/10/23 11/08/23 History losartan 100 mg tablet 100 mg PO BEDTIME 01/13/21 11/10/23 11/09/23 History metoprolol tartrate 25 mg tablet 12.5 mg PO BID 01/13/21 11/05/23 11/10/23 00:10 History omeprazole 40 mg capsule,delayed 40 mg PO BEDTIME 01/13/21 11/10/23 11/09/23 History release tramadol 50 mg tablet 50 mg PO BID PRN Pain 01/13/21 11/10/23 Unknown History acetaminophen 500 mg tablet 500 mg PO Q6H PRN Pain 11/03/23 11/10/23 Unknown History cholecalciferol (vitamin D3) 25 25 mcg PO DAILY 11/03/23 11/10/23 11/09/23 History mcg (1,000 unit) capsule glucosamine-chondroitin 500 mg-400 1 cap PO DAILY 11/03/23 11/10/23 11/09/23 History mg capsule magnesium oxide 500 mg tablet 500 mg PO DAILY 11/03/23 11/10/23 11/09/23 History mecobalamin (vitamin B12) 2,500 3,000 mcg PO DAILY 11/03/23 11/10/23 11/09/23 History mcg chewable tablet omega 7-oio-kln-fish oil 1,000 mg 1 cap PO DAILY 11/03/23 11/05/23 11/09/23 History (120 mg-180 mg) capsule (Fish Oil) amlodipine 5 mg tablet 5 mg PO BEDTIME 11/05/23 11/10/23 11/09/23 History Physical Exam 2 Vital Signs: Vital Signs: Last Vital Signs Temp 99.0 F 11/23/23 19:03 Pulse 98 11/23/23 19:03 Resp 18 11/23/23 19:03 BP 135/64 11/23/23 19:03 Pulse Ox 92 11/23/23 19:03 O2 Del Method Nasal Cannula 11/23/23 19:03 O2 Flow Rate 1.5 11/23/23 19:03 Oxygen Flow Rate 1.5 11/23/23 15:00 BMI result Body Mass Index 33.4 Const: General: cooperative HEENT: Head: Yes normal to inspection Face and sinus: Yes normal facial exam Mouth: Normal oral and palatal mucosa present Teeth and gingiva: d entition normal Eyes: General: appearance normal, both eyes and all related structures P upils: Equal, round and reactive pupils present Resp: Effort & Inspection: normal respiratory effort Cardio: Rate: regular rate Rhythm: regular rhythm GI: Other: mild diffuse lower abdominal discomfort Palpation (GI): Soft to palpation and nontender : General: Yes no CVA tenderness Back/Spine/Pelvis: Back: no CVA tenderness Skin: General skin exam: no rashes or lesions noted Neuro: General: moves all extremities Cranial nerves: Yes Equal, round and reactive pupils present Extrem: General: Yes normal to inspection Psych: Appearance: grossly normal Results Labs 11/22/23 00:23 11/22/23 00:23 Microbiology Microbiology Results: Microbiology 11/22/23 00:23 Blood - Venous Blood Culture - Preliminary Prelim: GNR Gram Stain only 11/22/23 00:23 Blood - Venous Blood Culture - Preliminary Prelim: GNR Gram Stain only Assessment and Plan (1) Fever of unknown origin: Status: Acute He has possible liver abscess Possible aspiration pneumonia Plan CT scan abdomen and pelvis With Contrast see if liver abscess. Continue Zosyn for now. Await culture
[2023-11-24] VITALS (15 sets, daily range): BP systolic 137–158; BP diastolic 58–74; PULSE 76–101; RESP 12–20; TEMP 36.4–37.6; O2SAT 90–96
[2023-11-24] MEDS: Piperacillin Sodium/Tazobactam 3.375 GM in 0.9 % Sodium Chloride 50 ML IV ×4 (00:11→17:54)
[2023-11-24] MEDS: oxyCODONE HCl Immed Release 5 MG TABLET 10 MG PO ×6 (00:11→23:22)
[2023-11-24] MEDS: Omeprazole 20 MG CAPSULE.DR PO ×2 (05:45→16:36)
--- NOTE | 2023-11-24 06:23 | PC.NURSE ---
Patient having difficulty urinating overnight. Bladder scanned for 843 ml, notified hospitalist . Ordered straight catheterization, str cathed for 700 ml. Patient did urinate a small amount following, which was blood tinged. Bladder scanned a second time for 344 ml. Hospitalist notified and patient attempting to urinate. Will continue to monitor.
--- NOTE | 2023-11-24 07:14 | P.PNIM_ITS ---
Subjective Subjective Date of Service: 11/24/23 Interval History: f/ u on fever, bacteremia doesn't feel good today, has urinary retention ct 11/23 ? liver abscess Physical Exam 2 Vital Signs: Vital Signs: Last Vital Signs Temp 98.9 F 11/24/23 03:33 Pulse 86 11/24/23 03:33 Resp 20 11/24/23 03:33 BP 142/66 H 11/24/23 03:33 Pulse Ox 96 11/24/23 03:33 O2 Del Method Nasal Cannula 11/24/23 03:33 O2 Flow Rate 1.5 11/24/23 03:33 Oxygen Flow Rate 1.5 11/23/23 15:00 BMI result Body Mass Index 33.4 Gen: in no acute distress HEENT: sclera anicteric, moist mucus membranes Neck: supple Lungs: clear to auscultation bilaterally Heart: regular rate and rhythm, no murmurs Abd: soft, some tenderness, non-distended, incisions intact, Ext: no edema Skin: warm/well-perfused Neuro: alert and oriented x3, no focal findings Psych: appropriate affect Const: Other: t Objective Data Active Medications Acetaminophen (Acetaminophen 325 Mg Tablet) 650 mg PO Q6H PRN PRN Reason: Pain, Mild (Pain Scale 1-3) Last Admin: 11/23/23 08:08 Dose: 650 mg Documented By: NIMA Acetaminophen (Acetaminophen 325 Mg Tablet) 975 mg PO Q6H PRN PRN Reason: headache Amlodipine Besylate (Amlodipine Besylate 5 Mg Tablet) 5 mg PO BEDTIME [facility]; Protocol Last Admin: 11/23/23 20:31 Dose: 5 mg Documented By: PARTH Amlodipine Besylate (Amlodipine Besylate 5 Mg Tablet) 5 mg PO DAILY [facility]; Protocol Last Admin: 11/23/23 08:08 Dose: 5 mg Documented By: NIMA Docusate Sodium (Docusate Sodium 100 Mg Capsule) 100 mg PO BID [facility] Last Admin: 11/23/23 20:31 Dose: 100 mg Documented By: PARTH Piperacillin Sod/Tazobactam (Sod 3.375 gm/ Sodium Chloride) 50 mls @ 100 mls/hr IV Q6H [facility] Last Infusion: 11/24/23 07:07 Dose: Infused Documented By: PARTH Lactated Ringer's (Lr) 1,000 mls @ 80 mls/hr IVCONT .[id number] [facility] Last Admin: 11/23/23 20:40 Dose: 80 mls/hr Documented By: PARTH Losartan Potassium (Losartan Potassium 50 Mg Tablet) 100 mg PO BEDTIME [facility]; Protocol Last Admin: 11/23/23 20:31 Dose: 100 mg Documented By: PARTH Metoclopramide HCl (Metoclopramide Hcl 10 Mg/2 Ml Vial) 5 mg IVPUSH Q6H PRN PRN Reason: Nausea and Vomiting Metoprolol Tartrate (Metoprolol Tartrate 25 Mg Tablet) 25 mg PO BID [facility]; Protocol Last Admin: 11/23/23 20:32 Dose: 25 mg Documented By: PARTH Morphine Sulfate (Morphine Sulfate 2 Mg/Ml Cartridge) 2 mg IVPUSH Q3H PRN; Protocol PRN Reason: Pain, Severe (Pain Scale 7-10) Last Admin: 11/16/23 22:09 Dose: 2 mg Documented By: BRETT Omeprazole (Omeprazole 20 Mg Capsule.Dr) 20 mg PO BID@0630,1630 [facility] Last Admin: 11/24/23 05:45 Dose: 20 mg Documented By: PARTH Ondansetron HCl (Ondansetron Hcl 4 Mg/2 Ml Vial) 4 mg IVPUSH Q8H PRN PRN Reason: nausea Last Admin: 11/22/23 00:36 Dose: 4 mg Documented By: JONY Oxycodone HCl (Oxycodone Hcl Immed Release 5 Mg Tablet) 10 mg PO Q4H PRN PRN Reason: Pain, Moderate(Pain Scale 4-6) Last Admin: 11/24/23 04:17 Dose: 10 mg Documented By: PARTH Sodium Chloride (0.9 % Sodium Chloride Flush 3 Ml Syringe) 3 ml IVFLUSH QSHIFT [facility] Last Admin: 11/24/23 00:10 Dose: 3 ml Documented By: PARTH Labs 11/22/23 00:23 11/24/23 06:52 Microbiology Microbiology Results: Microbiology 11/22/23 00:23 Blood Culture - Preliminary Blood - Venous Prelim: GNR Gram Stain only 11/22/23 00:23 Blood Culture - Preliminary Blood - Venous Prelim: GNR Gram Stain only Assessment and Plan (1) Hematoma: Status: Acute (2) Aspiration pneumonia: Status: Acute (3) Acute blood loss anemia: Status: Acute Plan 73yo M with HTN, HLD, GERD, CAD s/p LEELA to RCA 2007 admitted to [facility] Surg for lap roosevelt done 11/10/23, returned to 11/11/23 for control of bleeder near cystic duct stump/hematoma evacuation/DONATO drain had syncopal episode likely due to vasovagal syndrome + acute blood loss postoperative paroxysmal AF GNR bacteremia ? source, fever resolved -sensitivity pending -Continue Zosyn -Non contrast CT show liver collection, for IR drainage -ID input noted New urinary retention likely from BPH -Croft, uro consult, add cholelithiasis - s/p lap roosevelt, pain control/IS, DONATO drain management per Gen Surg paroxysmal AF - transient, due to postoperative state, AC not indicated, has not recurred - continue metoprolol tartrate 25 mg bid acute blood loss anemia - transfused 1u plts, 2u FFP, 4u pRBCs - H+H stable; monitor aspiration PNA - amp-sul 11/13-11/16, amox-clav 11/16-11/18. Zosyn 11/22 dependent pleural effusions - due to postop fluid shifts, encourage IS vasovagal syncope - resolved prerenal GUTIERREZ - resolved after transfusion + fluid resuscitation HTN - continue metoprolol tartrate, amlodipine, losartan CAD - ASA held for surgery, continue metoprolol GERD - PPI VTE ppx - SCDs dispo - PT eval: STR suggested when acute issues resolved. Total time managing care of this patient today: 35 minutes. Quality Stroke Does the patient have a stroke diagnosis?: No VTE Prior VTE?: No VTE Risk Level:: Medical - moderate - high VTE Device Contraindication: N/A - Device Ordered VTE Drug Contraindication: Treatment Not Indicated (Contraindicated in view of possible bleeding)
[2023-11-24 08:03] LABS: Anion Gap 11 (12-20); Blood Urea Nitrogen 15 mg/dL (9-16); Calcium 8.4 mg/dL (8.4-10.2); Carbon Dioxide 24 mmol/L (22-29); Chloride 103 mmol/L (96-108); Creatinine Clr Calc Pharmacy 96.7; Estimated Glomerular Filt Rate > 60; Glucose Random 133 mg/dL (60-115); Potassium 3.4 mmol/L (3.3-5.1); Sodium 135 mmol/L (135-145)
[2023-11-24 08:14] LABS: Hematocrit 23.3 % (42.0-52.0); Hemoglobin 7.7 g/dl (14.0-18.0); Mean Corpuscular Hemoglobin 30.7 pg (27.0-33.0); Mean Corpuscular Volume 92.8 fL (80.0-98.0); Mean Platelet Volume 9.6 fL (9.4-12.4); Platelet Count 384 X10*3/uL (160-400); Red Blood Count 2.51 X10*6/uL (4.60-5.80); Red Cell Distribution Width 13.8 % (11.0-16.0); White Blood Count 8.2 X10*3/uL (4.8-10.8)
[2023-11-24] MEDS: Docusate Sodium 100 MG CAPSULE PO ×2 (08:43→19:54)
[2023-11-24] MEDS: Metoprolol Tartrate 25 MG TABLET PO ×2 (08:44→19:53)
[2023-11-24] MEDS: Tamsulosin HCL 0.4 MG CAPSULE PO (08:44)
[2023-11-24] MEDS: amLODIPine Besylate 5 MG TABLET PO ×2 (08:44→19:53)
--- NOTE | 2023-11-24 09:11 | P.CNUR_ITS ---
History of Present Illness Consult details Consult date: 11/24/23 Narrative: CC: Postsurgical retention 700 cc on straight catheterization 400 cc at time of placement Catheter to remain for 14 days Advised use of catheter plug to empty every 4 hours Start alpha-daya doxazosin 4 mg with finasteride Review of Systems 2 Constitutional: Constitutional: Reports as per HPI and Reports no additional constitutional complaints Cardiovascular: Cardiovascular: Reports as per HPI and Reports no additional cardiovascular complaints Respiratory: Respiratory: Reports as per HPI and Reports no additional respiratory complaints Gastrointestinal: Gastrointestinal: Reports as per HPI and Reports no additional gastrointestinal complaints Genitourinary: Genitourinary: Reports as per HPI Musculoskeletal: Musculoskeletal: Reports no additional musculoskeletal complaints and Reports as per HPI Neurologic: Reports system reviewed and no additional complaints, except as documented and Reports as per HPI [facility] Past Medical History Medical History (Updated 12/17/23 @ 11:52 by Cheo Kenney MD) Pulmonary embolism Postoperative anemia due to acute blood loss [place]elope disease Hematoma GERD (gastroesophageal reflux disease) Elevated cholesterol Low back pain Depression CAD (coronary artery disease) Stable angina Gallstones Scoliosis Carpal tunnel syndrome C2 cervical fracture Arthritis Hypertension Family History Family History Father HTN (hypertension) Cardiac arrest Mother HTN (hypertension) Stroke Sister HTN (hypertension) Cancer Family history: reviewed and not pertinent Surgical History Surgical History (Updated 12/11/23 @ 00:01 by Linda Stark) S/P laparoscopic cholecystectomy Hx of carpal tunnel repair History of esophagogastroduodenoscopy (EGD) H/O colonoscopy History of cardiac cath Social History Social History Household Members: Spouse Household Members Other:: tereza Housing: House Are you a primary health care coach to a significant other at home: No Do you presently have visiting nurse or other home services: No Unable to assess alcohol history related to: Unable to respond Alcohol intake: never Patient Tobacco Use Status: Former Tobacco user Quit Date: 1970 Tobacco use type: Cigarette Years Smoked: 3 +/- service: Yes Meds Allergies Allergy/AdvReac Type Severity Reaction Status Date / Time No Known Allergies Allergy Verified 11/10/23 08:20 Active Medications: Current Medications Acetaminophen (Acetaminophen 325 Mg Tablet) 650 mg PO Q6H PRN PRN Reason: Pain, Mild (Pain Scale 1-3) Last Admin: 11/23/23 08:08 Dose: 650 mg Acetaminophen (Acetaminophen 325 Mg Tablet) 975 mg PO Q6H PRN PRN Reason: headache Amlodipine Besylate (Amlodipine Besylate 5 Mg Tablet) 5 mg PO BEDTIME [facility]; Protocol Last Admin: 11/23/23 20:31 Dose: 5 mg Amlodipine Besylate (Amlodipine Besylate 5 Mg Tablet) 5 mg PO DAILY [facility]; Protocol Last Admin: 11/24/23 08:44 Dose: 5 mg Docusate Sodium (Docusate Sodium 100 Mg Capsule) 100 mg PO BID [facility] Last Admin: 11/24/23 08:43 Dose: 100 mg Piperacillin Sod/Tazobactam (Sod 3.375 gm/ Sodium Chloride) 50 mls @ 100 mls/hr IV Q6H [facility] Last Infusion: 11/24/23 07:07 Dose: Infused Lactated Ringer's (Lr) 1,000 mls @ 80 mls/hr IVCONT .[id number] [facility] Last Admin: 11/23/23 20:40 Dose: 80 mls/hr Losartan Potassium (Losartan Potassium 50 Mg Tablet) 100 mg PO BEDTIME [facility]; Protocol Last Admin: 11/23/23 20:31 Dose: 100 mg Metoclopramide HCl (Metoclopramide Hcl 10 Mg/2 Ml Vial) 5 mg IVPUSH Q6H PRN PRN Reason: Nausea and Vomiting Metoprolol Tartrate (Metoprolol Tartrate 25 Mg Tablet) 25 mg PO BID [facility]; Protocol Last Admin: 11/24/23 08:44 Dose: 25 mg Morphine Sulfate (Morphine Sulfate 2 Mg/Ml Cartridge) 2 mg IVPUSH Q3H PRN; Protocol PRN Reason: Pain, Severe (Pain Scale 7-10) Last Admin: 11/16/23 22:09 Dose: 2 mg Omeprazole (Omeprazole 20 Mg Capsule.Dr) 20 mg PO BID@0630,1630 [facility] Last Admin: 11/24/23 05:45 Dose: 20 mg Ondansetron HCl (Ondansetron Hcl 4 Mg/2 Ml Vial) 4 mg IVPUSH Q8H PRN PRN Reason: nausea Last Admin: 11/22/23 00:36 Dose: 4 mg Oxycodone HCl (Oxycodone Hcl Immed Release 5 Mg Tablet) 10 mg PO Q4H PRN PRN Reason: Pain, Moderate(Pain Scale 4-6) Last Admin: 11/24/23 08:44 Dose: 10 mg Sodium Chloride (0.9 % Sodium Chloride Flush 3 Ml Syringe) 3 ml IVFLUSH QSHIFT [facility] Last Admin: 11/24/23 08:45 Dose: Not Given Tamsulosin HCl (Tamsulosin Hcl 0.4 Mg Capsule) 0.4 mg PO DAILY [facility] Last Admin: 11/24/23 08:44 Dose: 0.4 mg Home Medications Medication Instructions Recorded Confirmed Last Taken Type aspirin 81 mg tablet,delayed 81 mg PO DAILY 01/13/21 11/05/23 11/09/23 History release (Adult Low Dose Aspirin) atorvastatin 20 mg tablet 20 mg PO Q OTHER DAY 01/13/21 11/10/23 11/08/23 History losartan 100 mg tablet 100 mg PO BEDTIME 01/13/21 11/10/23 11/09/23 History omeprazole 40 mg capsule,delayed 40 mg PO BEDTIME 01/13/21 11/10/23 11/09/23 History release tramadol 50 mg tablet 50 mg PO BID PRN Pain 01/13/21 11/10/23 Unknown History acetaminophen 500 mg tablet 500 mg PO Q6H PRN Pain 11/03/23 11/10/23 Unknown History cholecalciferol (vitamin D3) 25 25 mcg PO DAILY 11/03/23 11/10/23 11/09/23 History mcg (1,000 unit) capsule glucosamine-chondroitin 500 mg-400 1 cap PO DAILY 11/03/23 11/10/23 11/09/23 History mg capsule magnesium oxide 500 mg PO DAILY 11/03/23 11/10/23 11/09/23 History mecobalamin (vitamin B12) 2,500 3,000 mcg PO DAILY 11/03/23 11/10/23 11/09/23 History mcg chewable tablet omega 2-bcm-akb-fish oil 1,000 mg 1 cap PO DAILY 11/03/23 11/05/23 11/09/23 History (120 mg-180 mg) capsule (Fish Oil) amlodipine 5 mg tablet 5 mg PO BEDTIME 11/05/23 11/10/23 11/09/23 History Physical Exam 2 Vital Signs: Vital Signs: Last Vital Signs Temp 99.0 F 11/24/23 08:00 Pulse 96 11/24/23 08:00 Resp 18 11/24/23 08:00 BP 148/73 H 11/24/23 08:00 Pulse Ox 92 11/24/23 08:00 O2 Del Method Nasal Cannula 11/24/23 08:00 O2 Flow Rate 2 11/24/23 08:00 Oxygen Flow Rate 1.5 11/23/23 15:00 BMI result Body Mass Index 33.4 Const: General: cooperative, healthy appearing, comfortable and no acute distress Orientation/consciousness: patient oriented x3 HEENT: Face and sinus: Yes normal facial exam Mouth: moist mucous membranes Neck: Neck: Yes normal visual inspection, Yes full ROM and Yes trachea midline Chest: Chest palpation & inspection: normal inspection of the chest Resp: Effort & Inspection: normal respiratory effort, able to speak in complete sentences and no respiratory distress GI: Inspection: Yes normal to inspection Back/Spine/Pelvis: Cervical Spine: normal cervical lordosis Thoracic/Lumbar Spine: thoracic and lumbar spine normal to inspection Skin: General skin exam: no rashes or lesions noted Neuro: General: patient oriented x3, tone normal and moves all extremities Extrem: General: Yes normal to inspection and Yes capillary refill normal Results Labs 12/02/23 09:56 12/03/23 06:35 Labs: Abnormal lab results 11/24/23 Range/Units 06:52 RBC 2.51 L (4.60-5.80) X10*6/uL Hgb 7.7 L (14.0-18.0) g/dl Hct 23.3 L (42.0-52.0) % Anion Gap 11 L (12-20) Random Glucose 133 H (60-115) mg/dL Short CBC 11/24/23 Range/Units 06:52 WBC 8.2 (4.8-10.8) X10*3/uL Hgb 7.7 L (14.0-18.0) g/dl Hct 23.3 L (42.0-52.0) % Plt Count 384 (160-400) X10*3/uL BMP 11/24/23 06:52 Sodium 135 Potassium 3.4 Chloride 103 Carbon Dioxide 24 BUN 15 Creatinine 0.73 Calcium 8.4 All other labs normal. Assessment and Plan (1) Urinary retention with incomplete bladder emptying: Status: [facility] Procedures Date of Service Date of Service: 12/17/23
--- NOTE | 2023-11-24 09:23 | P.PNGS_ITS ---
Subjective Subjective Date of Service: 11/25/23 Interval history: No events reported overnight However, has had urinary retention Oral intake still marginal Physical Exam 2 Vital Signs: Vital Signs: Last Vital Signs Temp 99.0 F 11/24/23 08:00 Pulse 96 11/24/23 08:00 Resp 18 11/24/23 08:00 BP 148/73 H 11/24/23 08:00 Pulse Ox 92 11/24/23 08:00 O2 Del Method Nasal Cannula 11/24/23 08:00 O2 Flow Rate 2 11/24/23 08:00 Oxygen Flow Rate 1.5 11/23/23 15:00 BMI result Body Mass Index 33.4 Const: Other: Has excisional dyspnea General: no acute distress Resp: Other: Has exertional dyspnea Cardio: Rate: regular rate GI: Other: Bladder feels full DONATO drain very minimal, dark old blood Palpation (GI): Soft to palpation Objective Data Active Medications Acetaminophen (Acetaminophen 325 Mg Tablet) 650 mg PO Q6H PRN PRN Reason: Pain, Mild (Pain Scale 1-3) Last Admin: 11/23/23 08:08 Dose: 650 mg Documented By: NIMA Acetaminophen (Acetaminophen 325 Mg Tablet) 975 mg PO Q6H PRN PRN Reason: headache Amlodipine Besylate (Amlodipine Besylate 5 Mg Tablet) 5 mg PO BEDTIME [facility]; Protocol Last Admin: 11/23/23 20:31 Dose: 5 mg Documented By: PARTH Amlodipine Besylate (Amlodipine Besylate 5 Mg Tablet) 5 mg PO DAILY [facility]; Protocol Last Admin: 11/24/23 08:44 Dose: 5 mg Documented By: NIMA Docusate Sodium (Docusate Sodium 100 Mg Capsule) 100 mg PO BID [facility] Last Admin: 11/24/23 08:43 Dose: 100 mg Documented By: NIMA Doxazosin Mesylate (Doxazosin Mesylate 2 Mg Tablet) 4 mg PO BEDTIME [facility]; Protocol Finasteride (Finasteride 5 Mg Tablet) 5 mg PO DAILY [facility] Piperacillin Sod/Tazobactam (Sod 3.375 gm/ Sodium Chloride) 50 mls @ 100 mls/hr IV Q6H [facility] Last Infusion: 11/24/23 07:07 Dose: Infused Documented By: PARTH Lactated Ringer's (Lr) 1,000 mls @ 80 mls/hr IVCONT .[id number] [facility] Last Admin: 11/23/23 20:40 Dose: 80 mls/hr Documented By: PARTH Losartan Potassium (Losartan Potassium 50 Mg Tablet) 100 mg PO BEDTIME [facility]; Protocol Last Admin: 11/23/23 20:31 Dose: 100 mg Documented By: PARTH Metoclopramide HCl (Metoclopramide Hcl 10 Mg/2 Ml Vial) 5 mg IVPUSH Q6H PRN PRN Reason: Nausea and Vomiting Metoprolol Tartrate (Metoprolol Tartrate 25 Mg Tablet) 25 mg PO BID [facility]; Protocol Last Admin: 11/24/23 08:44 Dose: 25 mg Documented By: NIMA Morphine Sulfate (Morphine Sulfate 2 Mg/Ml Cartridge) 2 mg IVPUSH Q3H PRN; Protocol PRN Reason: Pain, Severe (Pain Scale 7-10) Last Admin: 11/16/23 22:09 Dose: 2 mg Documented By: BRETT Omeprazole (Omeprazole 20 Mg Capsule.Dr) 20 mg PO BID@0630,1630 [facility] Last Admin: 11/24/23 05:45 Dose: 20 mg Documented By: PARTH Ondansetron HCl (Ondansetron Hcl 4 Mg/2 Ml Vial) 4 mg IVPUSH Q8H PRN PRN Reason: nausea Last Admin: 11/22/23 00:36 Dose: 4 mg Documented By: JONY Oxycodone HCl (Oxycodone Hcl Immed Release 5 Mg Tablet) 10 mg PO Q4H PRN PRN Reason: Pain, Moderate(Pain Scale 4-6) Last Admin: 11/24/23 08:44 Dose: 10 mg Documented By: NIMA Sodium Chloride (0.9 % Sodium Chloride Flush 3 Ml Syringe) 3 ml IVFLUSH QSHIFT [facility] Last Admin: 11/24/23 08:45 Dose: Not Given Documented By: NIMA Non-Admin Reason: IV Running Labs 11/24/23 06:52 11/24/23 06:52 Labs: Laboratory Results - last 24 hr 11/24/23 06:52 MCV 92.8 MCH 30.7 MCHC 33.0 RDW 13.8 Plt Count 384 MPV 9.6 Absolute Nucleated RBC 0.000 Nucleated RBC % (auto) 0.0 Anion Gap 11 L Estim Creat Clear Calc 96.7 Estimated GFR > 60 Random Glucose 133 H Calcium 8.4 Microbiology Microbiology Results: Microbiology 11/22/23 00:23 Blood Culture - Preliminary Blood - Venous Prelim: GNR Gram Stain only 11/22/23 00:23 Blood Culture - Preliminary Blood - Venous Prelim: GNR Gram Stain only Procedures Date of Service Date of Service: 11/25/23 Progress Note: A&P Assessment and plan (1) Postoperative anemia due to acute blood loss: Status: Acute Assessment and Plan: CT scan shows residual large hematoma around liver CT drain today to rule out infected hematoma Discussed with IR Hemoglobin has drifted -likely contributing to excisional dyspnea Transfuse today Push oral intake Increase activity tolerance Appreciate hospitalist follow-up Croft catheter for retention Time Spent With Patient Time: Total time managing care of this patient today ____ minutes. Quality Stroke Does the patient have a stroke diagnosis?: No VTE Prior VTE?: No VTE Risk Level:: Medical - moderate - high VTE Device Contraindication: N/A - Device Ordered VTE Drug Contraindication: Treatment Not Indicated (Contraindicated in view of possible bleeding)
[2023-11-24] MEDS: Finasteride 5 MG TABLET PO (09:54)
[2023-11-24] MEDS: Lactated Ringers 1,000 ML 80 ML IVCONT (09:54)
--- NOTE | 2023-11-24 12:18 | HO.RADPN ---
RADIOLOGY Narrative Narrative: Procedure Note: CT drainage of perihepatic hematoma 14 fr drain placed. 600 cc dark non-clotting old blood removed and sent for culture. Pedro BAI Interventional Radiology
--- NOTE | 2023-11-24 15:01 | P.PNID_ITS ---
Subjective Subjective Date of Service: 11/24/23 Critical Care Time (minutes): 15 Comment: he is going to get drain today Objective Data Labs 11/24/23 06:52 11/24/23 06:52 Labs: Laboratory Results - last 24 hr 11/24/23 11/24/23 06:52 13:50 WBC 8.2 RBC 2.51 L Hgb 7.7 L Hct 23.3 L MCV 92.8 MCH 30.7 MCHC 33.0 RDW 13.8 Plt Count 384 MPV 9.6 Absolute Nucleated RBC 0.000 Nucleated RBC % (auto) 0.0 Sodium 135 Potassium 3.4 Chloride 103 Carbon Dioxide 24 Anion Gap 11 L BUN 15 Creatinine 0.73 Estim Creat Clear Calc 96.7 Estimated GFR > 60 Random Glucose 133 H Calcium 8.4 Blood Type O Positive Antibody Screen NEGATIVE Crossmatch See Detail Microbiology Microbiology Results: Microbiology 11/24/23 11:45 Abscess Intra-abdominal Gram Stain - Final 11/22/23 00:23 Blood - Venous Blood Culture - Preliminary Prelim: GNR Gram Stain only 11/22/23 00:23 Blood - Venous Blood Culture - Preliminary Prelim: GNR Gram Stain only Physical Exam 2 Vital Signs: Vital Signs: Last Vital Signs Temp 98.0 F 11/24/23 14:56 Pulse 101 H 11/24/23 14:56 Resp 18 11/24/23 14:56 BP 145/65 H 11/24/23 14:56 Pulse Ox 90 L 11/24/23 14:51 O2 Del Method Nasal Cannula 11/24/23 14:51 O2 Flow Rate 1.5 11/24/23 14:51 Oxygen Flow Rate 1.5 11/23/23 15:00 BMI result Body Mass Index 33.4 Const: General: cooperative HEENT: Head: Yes normal to inspection Mouth: Normal oral and palatal mucosa present Resp: Effort & Inspection: normal respiratory effort Cardio: Rate: regular rate Rhythm: regular rhythm GI: Palpation (GI): Soft to palpation and nontender Assessment and Plan Assessment and plan (1) Fever of unknown origin: Problem details: probable hematoma or liver abscess,high concern over liver abscess Status: Acute Assessment and Plan: Probable liver abscess Plan Would continue piperacillin/tazobactam Await cultures from drainage. Time Spent With Patient Time: Total time managing care of this patient today ____ minutes.
--- NOTE | 2023-11-24 15:44 | MHC.CM.PN ---
EMR reviewed and per MD rounds, pt is not medically cleared due to pt returning to OR for liver abscess drainage. CM will continue to follow.
--- NOTE | 2023-11-24 15:57 | PM.EVENT ---
Event Note Date of Service: 11/25/23 Event Note: CT drainage had been done earlier today 600 cc of dark old blood drained from the right side Reviewed with IR - blood drained appeared to be old, not infected Patient also ongoing transfusion for drop in hemoglobin Follow hemoglobin He does state that there is less pressure on the right side of his abdomen after drainage Urine was concentrated and appeared dark earlier likely from by-products of the hematoma Urine here this afternoon Continue IV fluids Continue to push for oral intake updated Time Spent With Patient Time: Total time managing care of this patient today ____ minutes.
[2023-11-24] MEDS: Losartan Potassium 50 MG TABLET 100 MG PO (19:53)
[2023-11-24] MEDS: Doxazosin Mesylate 2 MG TABLET 4 MG PO (19:57)
[2023-11-24] MEDS: Morphine Sulfate 2 MG/ML CARTRIDGE IVPUSH (20:05)
--- NOTE | 2023-11-24 22:07 | PHA.PROG ---
Admission Date/Time: November 10, 2023 17:45 Indication: INTRA-ABDOMINAL Weight in k kg Adjusted body weight in Kg: [place] body weight in Kg: Obesity Dosing Indication % IBW: Serum Creatinine - Last 168 Hours 11/22/23 11/24/23 00:23 06:52 Creatinine 1.05 0.73 Estimated CrCl and GFR - Last 168 Hours 11/22/23 11/24/23 00:23 06:52 Estim Creat Clear Calc 67.2 96.7 Estimated GFR > 60 > 60 Vancomycin Loading Dose: 2000MG Current Vancomycin Dosing Regimen: 1250 MG Q12H Vancomycin Monitoring using AUC goal of 400 - 600 range with trough as surrogate marker: AUC 551 MG/L/HR WITH TROUGH 17.5 MG/L Date and Time for next Vancomycin Level to be drawn: 11/25/23@2100 Pharmacist Comments on Vancomycin Plan: BASED ON PATIENT'S sCr OF 0.73, CrCl OF 96.7 AND INDICATION, DOSE WAS PUT IN FOR 1250 MG Q12H, STARTING ON 11/25/23@1100. RANDOM IS SCHEDULED FOR 11/25/23@2100 TO MONITOR FOR SAFETY AND EFFICACY. Vancomycin dosing will take advantage of [employer] as a clinical decision support tool that uses Bayesian modeling to calculate individual patient's pharmacokinetic parameters and forecast the patient's drug concentration time course with the target goal AUC 24 range of 400 - 600 mg/L/hr.
[2023-11-24] MEDS: Acetaminophen 325 MG TABLET 975 MG PO (23:21)
[2023-11-25] VITALS (7 sets, daily range): BP systolic 115–184; BP diastolic 58–78; PULSE 83–97; RESP 18–20; TEMP 36.3–37.3; O2SAT 92–97; BMI 33.4
--- NOTE | 2023-11-25 | ECG_ITS ---
Test Reason : bigeminy Blood Pressure : / mmHG Vent. Rate : 092 BPM Atrial Rate : 092 BPM P-R Int : 138 ms QRS Dur : 102 ms QT Int : 376 ms P-R-T Axes : 052 010 052 degrees QTc Int : 464 ms Sinus rhythm with frequent Premature ventricular complexes Possible Anterior infarct (cited on or before 13-OCT-2023) Abnormal ECG When compared with ECG of 15-NOV-2023 12:16, Rhythm change Premature ventricular complexes present Referred By: Mark Wright Electronically Signed By:SANDHYA HAIRSTON
[2023-11-25] MEDS: Lactated Ringers 1,000 ML 80 ML IVCONT (05:40)
[2023-11-25] MEDS: Omeprazole 20 MG CAPSULE.DR PO ×2 (05:40→16:35)
[2023-11-25] MEDS: Piperacillin Sodium/Tazobactam 3.375 GM in 0.9 % Sodium Chloride 50 ML IV ×4 (06:05→17:52)
[2023-11-25] MEDS: amLODIPine Besylate 5 MG TABLET PO ×2 (08:10→20:05)
[2023-11-25] MEDS: Finasteride 5 MG TABLET PO (08:10)
[2023-11-25] MEDS: Docusate Sodium 100 MG CAPSULE PO ×2 (08:10→20:05)
[2023-11-25] MEDS: Metoprolol Tartrate 25 MG TABLET PO ×2 (08:10→20:05)
[2023-11-25] MEDS: oxyCODONE HCl Immed Release 5 MG TABLET 10 MG PO ×3 (08:11→17:56)
--- NOTE | 2023-11-25 08:11 | P.PNGS_ITS ---
Subjective Subjective Date of Service: 11/26/23 Interval history: says he is tired oral intake still very marginal transfused yesterday had CT drainage of large hematoma yesterday Physical Exam 2 Vital Signs: Vital Signs: Last Vital Signs Temp 99.2 F 11/25/23 07:13 Pulse 86 11/25/23 07:13 Resp 18 11/25/23 07:13 BP 143/64 H 11/25/23 07:13 Pulse Ox 92 11/25/23 07:13 O2 Del Method Nasal Cannula 11/25/23 07:13 O2 Flow Rate 2 11/25/23 07:13 Oxygen Flow Rate 1.5 11/24/23 15:00 BMI result Body Mass Index 33.4 Const: Other: has exercise intolerance conversant, although appears tired Resp: Other: gets SOB easily wiuh exertion Cardio: Rate: regular rate GI: Other: soft, incision clean, DONATO drains - dark blood both minimal output Objective Data Active Medications Acetaminophen (Acetaminophen 325 Mg Tablet) 650 mg PO Q6H PRN PRN Reason: Pain, Mild (Pain Scale 1-3) Last Admin: 11/23/23 08:08 Dose: 650 mg Documented By: NIMA Acetaminophen (Acetaminophen 325 Mg Tablet) 975 mg PO Q6H PRN PRN Reason: headache Last Admin: 11/24/23 23:21 Dose: 975 mg Documented By: PARTH Amlodipine Besylate (Amlodipine Besylate 5 Mg Tablet) 5 mg PO BEDTIME [facility]; Protocol Last Admin: 11/24/23 19:53 Dose: 5 mg Documented By: PARTH Amlodipine Besylate (Amlodipine Besylate 5 Mg Tablet) 5 mg PO DAILY [facility]; Protocol Last Admin: 11/24/23 08:44 Dose: 5 mg Documented By: NIMA Docusate Sodium (Docusate Sodium 100 Mg Capsule) 100 mg PO BID [facility] Last Admin: 11/24/23 19:54 Dose: 100 mg Documented By: PARTH Doxazosin Mesylate (Doxazosin Mesylate 2 Mg Tablet) 4 mg PO BEDTIME [facility]; Protocol Last Admin: 11/24/23 19:57 Dose: 4 mg Documented By: PARTH Finasteride (Finasteride 5 Mg Tablet) 5 mg PO DAILY [facility] Last Admin: 11/24/23 09:54 Dose: 5 mg Documented By: NIMA Piperacillin Sod/Tazobactam (Sod 3.375 gm/ Sodium Chloride) 50 mls @ 100 mls/hr IV Q6H [facility] Last Infusion: 11/25/23 06:42 Dose: Infused Documented By: PARTH Lactated Ringer's (Lr) 1,000 mls @ 80 mls/hr IVCONT .[id number] [facility] Last Admin: 11/25/23 05:40 Dose: 80 mls/hr Documented By: PARTH Vancomycin HCl 1,250 mg/ (Sodium Chloride) 250 mls @ 166.667 mls/hr IV Q12H [facility] Losartan Potassium (Losartan Potassium 50 Mg Tablet) 100 mg PO BEDTIME [facility]; Protocol Last Admin: 11/24/23 19:53 Dose: 100 mg Documented By: PARTH Metoclopramide HCl (Metoclopramide Hcl 10 Mg/2 Ml Vial) 5 mg IVPUSH Q6H PRN PRN Reason: Nausea and Vomiting Metoprolol Tartrate (Metoprolol Tartrate 25 Mg Tablet) 25 mg PO BID [facility]; Protocol Last Admin: 11/24/23 19:53 Dose: 25 mg Documented By: PARTH Morphine Sulfate (Morphine Sulfate 2 Mg/Ml Cartridge) 2 mg IVPUSH Q3H [facility]; Protocol PRN Reason: Pain, Severe (Pain Scale 7-10) Last Admin: 11/24/23 20:05 Dose: 2 mg Documented By: PARTH Omeprazole (Omeprazole 20 Mg Capsule.Dr) 20 mg PO BID@0630,1630 [facility] Last Admin: 11/25/23 05:40 Dose: 20 mg Documented By: PARTH Ondansetron HCl (Ondansetron Hcl 4 Mg/2 Ml Vial) 4 mg IVPUSH Q8H PRN PRN Reason: nausea Last Admin: 11/22/23 00:36 Dose: 4 mg Documented By: JONY Oxycodone HCl (Oxycodone Hcl Immed Release 5 Mg Tablet) 10 mg PO Q4H PRN PRN Reason: Pain, Moderate(Pain Scale 4-6) Last Admin: 11/24/23 23:22 Dose: 10 mg Documented By: PARTH Pharmacy Consult (Consult Rx Vancomycin Dosing) 1 each MISCELLANE DAILY PRN PRN Reason: Consult order Sodium Chloride (0.9 % Sodium Chloride Flush 3 Ml Syringe) 3 ml IVFLUSH QSHIFT [facility] Last Admin: 11/24/23 23:13 Dose: 3 ml Documented By: PARTH Labs 11/26/23 06:36 11/26/23 06:38 Labs: Laboratory Results - last 24 hr 11/24/23 11/24/23 06:52 13:50 MCV 92.8 MCH 30.7 MCHC 33.0 RDW 13.8 Plt Count 384 MPV 9.6 Absolute Nucleated RBC 0.000 Nucleated RBC % (auto) 0.0 Blood Type O Positive Antibody Screen NEGATIVE Crossmatch See Detail Microbiology Microbiology Results: Microbiology 11/24/23 11:45 Gram Stain - Final Abscess Intra-abdominal 11/22/23 00:23 Blood Culture - Preliminary Blood - Venous Prelim: GNR Gram Stain only 11/22/23 00:23 Blood Culture - Preliminary Blood - Venous Prelim: GNR Gram Stain only Procedures Date of Service Date of Service: 11/26/23 Progress Note: A&P Assessment and plan (1) Postoperative anemia due to acute blood loss: Status: Acute Assessment and Plan: CT drain done for hematoma yesterday check Hg emphasized to pt and nursing stafff need to really have better PO intake and to get OOB push Ensure no fever hopefully, exercise tolerance improves with transfusion and that PO intake increases with drainage of intraabdl hematoma yesterday urine clearing being updated regularly Hospitalist following Time Spent With Patient Time: Total time managing care of this patient today ____ minutes. Quality Stroke Does the patient have a stroke diagnosis?: No VTE Prior VTE?: No VTE Risk Level:: Medical - moderate - high VTE Device Contraindication: N/A - Device Ordered VTE Drug Contraindication: Treatment Not Indicated (Contraindicated in view of possible bleeding)
--- NOTE | 2023-11-25 08:45 | P.CDIM_ITS ---
PROVIDER RESPONSE TEXT: To clarify, the appropriate diagnosis supported by the clinical indicators: possible, probable, suspected QUERY TEXT: PHYSICIAN'S DOCUMENTATION REQUEST Date of Query: 11/24/2023 12:05 PM EST Patient Name: Darrick Ty Admit Date: 11/10/2023 Dear Ismael Dutta, A review of the medical record indicates additional documentation may be needed. Please review below and update the documentation accordingly. Clinical Indicators: PN: Aspiration PNA Amp-sul 11/13-11/16, amox-clav 11/16-11/18 wbc's normal Based on the above, could you clarify in the Progress Notes further specificity regarding the aspirat ion pneumonia and its etiology: Aspiration Pneumonia due to food, vomitus etc suspected, possible, probable Aspiration pneumonia due to anesthesia possible, probable, suspected Other (explain) Clinically unable to determine (explain) Thank you, Gabriela Shah, CCS, CDIS Use of terms such as suspected, likely, concern for, or probable (associated with a specific diagnosi s that is being evaluated, monitored, or treated as if it exists) are acceptable and can be coded in the inpatient se tting, when documented at the time of discharge. Please use your independent medical judgment in providing your response. THIS QUERY IS PART OF THE PERMANENT MEDICAL RECORD
[2023-11-25 09:18] LABS: Hematocrit 29.7 % (42.0-52.0); Hemoglobin 10.2 g/dl (14.0-18.0); Mean Corpuscular HGB Conc 34.3 g/dl (31.0-36.0); Mean Corpuscular Hemoglobin 31.4 pg (27.0-33.0); Mean Corpuscular Volume 91.4 fL (80.0-98.0); Mean Platelet Volume 9.2 fL (9.4-12.4); Platelet Count 380 X10*3/uL (160-400); Red Blood Count 3.25 X10*6/uL (4.60-5.80); Red Cell Distribution Width 14.4 % (11.0-16.0); White Blood Count 7.3 X10*3/uL (4.8-10.8)
[2023-11-25 09:26] LABS: Anion Gap 12 (12-20); Blood Urea Nitrogen 12 mg/dL (9-16); Calcium 8.8 mg/dL (8.4-10.2); Carbon Dioxide 26 mmol/L (22-29); Chloride 104 mmol/L (96-108); Creatinine Clr Calc Pharmacy 102.3; Estimated Glomerular Filt Rate > 60; Glucose Random 116 mg/dL (60-115); Potassium 3.8 mmol/L (3.3-5.1); Sodium 138 mmol/L (135-145)
--- NOTE | 2023-11-25 10:49 | HO.PM.IMPN ---
Subjective Subjective Date of Service: 11/25/23 Interval History: f/ u bacteremia, possible infected hematoma s/p ir drainage 11/24, Gram stain = Enteroccocus/Streptococcus Physical Exam Vital Signs: Vital Signs: Last Vital Signs Temp 99.2 F 11/25/23 07:13 Pulse 86 11/25/23 07:13 Resp 18 11/25/23 07:13 BP 143/64 H 11/25/23 07:13 Pulse Ox 92 11/25/23 07:13 O2 Del Method Nasal Cannula 11/25/23 07:13 O2 Flow Rate 2 11/25/23 07:13 Oxygen Flow Rate 1.5 11/24/23 15:00 BMI result Body Mass Index 33.4 Gen: in no acute distress Lungs: clear to auscultation bilaterally Heart: regular rate and rhythm, no murmurs Abd: soft, some tenderness, non-distended, incisions intact, Ext: no edema Skin: warm/well-perfused right sided drain with dark blood Neuro: alert and oriented x3, no focal findings Psych: appropriate affect Objective Data Active Medications Acetaminophen (Acetaminophen 325 Mg Tablet) 650 mg PO Q6H PRN PRN Reason: Pain, Mild (Pain Scale 1-3) Last Admin: 11/23/23 08:08 Dose: 650 mg Documented By: NIMA Acetaminophen (Acetaminophen 325 Mg Tablet) 975 mg PO Q6H PRN PRN Reason: headache Last Admin: 11/24/23 23:21 Dose: 975 mg Documented By: PARTH Amlodipine Besylate (Amlodipine Besylate 5 Mg Tablet) 5 mg PO BEDTIME [facility]; Protocol Last Admin: 11/24/23 19:53 Dose: 5 mg Documented By: PARTH Amlodipine Besylate (Amlodipine Besylate 5 Mg Tablet) 5 mg PO DAILY [facility]; Protocol Last Admin: 11/25/23 08:10 Dose: 5 mg Documented By: NIMA Docusate Sodium (Docusate Sodium 100 Mg Capsule) 100 mg PO BID [facility] Last Admin: 11/25/23 08:10 Dose: 100 mg Documented By: NIMA Doxazosin Mesylate (Doxazosin Mesylate 2 Mg Tablet) 4 mg PO BEDTIME [facility]; Protocol Last Admin: 11/24/23 19:57 Dose: 4 mg Documented By: PARTH Finasteride (Finasteride 5 Mg Tablet) 5 mg PO DAILY [facility] Last Admin: 11/25/23 08:10 Dose: 5 mg Documented By: NIMA Piperacillin Sod/Tazobactam (Sod 3.375 gm/ Sodium Chloride) 50 mls @ 100 mls/hr IV Q6H [facility] Last Infusion: 11/25/23 06:42 Dose: Infused Documented By: PARTH Lactated Ringer's (Lr) 1,000 mls @ 80 mls/hr IVCONT .[id number] [facility] Last Admin: 11/25/23 05:40 Dose: 80 mls/hr Documented By: PARTH Vancomycin HCl 1,250 mg/ (Sodium Chloride) 250 mls @ 166.667 mls/hr IV Q12H [facility] Losartan Potassium (Losartan Potassium 50 Mg Tablet) 100 mg PO BEDTIME [facility]; Protocol Last Admin: 11/24/23 19:53 Dose: 100 mg Documented By: PARTH Metoclopramide HCl (Metoclopramide Hcl 10 Mg/2 Ml Vial) 5 mg IVPUSH Q6H PRN PRN Reason: Nausea and Vomiting Metoprolol Tartrate (Metoprolol Tartrate 25 Mg Tablet) 25 mg PO BID [facility]; Protocol Last Admin: 11/25/23 08:10 Dose: 25 mg Documented By: NIMA Morphine Sulfate (Morphine Sulfate 2 Mg/Ml Cartridge) 2 mg IVPUSH Q3H PRN; Protocol PRN Reason: Pain, Severe (Pain Scale 7-10) Last Admin: 11/24/23 20:05 Dose: 2 mg Documented By: PARTH Omeprazole (Omeprazole 20 Mg Capsule.) 20 mg PO BID@0630,1630 [facility] Last Admin: 11/25/23 05:40 Dose: 20 mg Documented By: PARTH Ondansetron HCl (Ondansetron Hcl 4 Mg/2 Ml Vial) 4 mg IVPUSH Q8H PRN PRN Reason: nausea Last Admin: 11/22/23 00:36 Dose: 4 mg Documented By: JONY Oxycodone HCl (Oxycodone Hcl Immed Release 5 Mg Tablet) 10 mg PO Q4H PRN PRN Reason: Pain, Moderate(Pain Scale 4-6) Last Admin: 11/25/23 08:11 Dose: 10 mg Documented By: NIMA Pharmacy Consult (Consult Rx Vancomycin Dosing) 1 each MISCELLANE DAILY PRN PRN Reason: Consult order Sodium Chloride (0.9 % Sodium Chloride Flush 3 Ml Syringe) 3 ml IVFLUSH QSHIFT [facility] Last Admin: 11/25/23 08:11 Dose: Not Given Documented By: NIMA Non-Admin Reason: IV Running Labs 11/25/23 08:59 11/25/23 09:09 Labs: Laboratory Results - last 24 hr 11/24/23 11/25/23 11/25/23 13:50 08:59 09:09 MCV 91.4 MCH 31.4 MCHC 34.3 RDW 14.4 Plt Count 380 MPV 9.2 L Absolute Nucleated RBC 0.000 Nucleated RBC % (auto) 0.0 Anion Gap 12 Estim Creat Clear Calc 102.3 Estimated GFR > 60 Random Glucose 116 H Calcium 8.8 Blood Type O Positive Antibody Screen NEGATIVE Crossmatch See Detail Microbiology Microbiology Results: Microbiology 11/24/23 11:45 Gram Stain - Final Abscess Intra-abdominal Routine Culture - Preliminary Enterococcus/Streptococcus sp Anaerobic Culture - Preliminary Culture in progress. 11/22/23 00:23 Blood Culture - Preliminary Blood - Venous Prelim: GNR Gram Stain only 11/22/23 00:23 Blood Culture - Preliminary Blood - Venous Prelim: GNR Gram Stain only Assessment and Plan (1) Hematoma: Status: Acute (2) Aspiration pneumonia: Status: Acute (3) Acute blood loss anemia: Status: Acute Plan 73yo M with HTN, HLD, GERD, CAD s/p LEELA to RCA 2007 admitted to Gen Surg for lap roosevelt done 11/10/23, returned to 11/11/23 for control of bleeder near cystic duct stump/hematoma evacuation/DONATO drain had syncopal episode likely due to vasovagal syndrome + acute blood loss postoperative paroxysmal AF GNR bacteremia ? source, fever resolved Enteroccus/streptococcus in hematoma drainage -sensitivity pending -Continue Zosyn started 11/22, Vanco started 11/24 -Non contrast CT show liver collection, for IR drainage -ID input noted New urinary retention likely from BPH -Croft, uro consult, Doxazosin cholelithiasis - s/p lap roosevelt, pain control/IS, DONATO drain management per Gen Surg paroxysmal AF - transient, due to postoperative state, AC not indicated, has not recurred - continue metoprolol tartrate 25 mg bid acute blood loss anemia - transfused 1u plts, 2u FFP, 6u pRBCs - H+H stable; monitor aspiration PNA - amp-sul 11/13-11/16, amox-clav 11/16-11/18. Zosyn 11/22 dependent pleural effusions - due to postop fluid shifts, encourage IS vasovagal syncope - resolved prerenal GUTIERREZ - resolved after transfusion + fluid resuscitation HTN - continue metoprolol tartrate, amlodipine, losartan CAD - ASA held for surgery, continue metoprolol GERD - PPI VTE ppx - SCDs dispo - PT eval: STR suggested when acute issues resolved. Total time managing care of this patient today: 35 minutes. Quality Stroke Does the patient have a stroke diagnosis?: No VTE Prior VTE?: No VTE Risk Level:: Medical - moderate - high VTE Device Contraindication: N/A - Device Ordered VTE Drug Contraindication: Treatment Not Indicated (Contraindicated in view of possible bleeding)
[2023-11-25] MEDS: vancomycin HCL 1,250 MG in 0.9 % Sodium Chloride 250 ML 166.67 MG IV (11:14)
[2023-11-25] MEDS: Acetaminophen 325 MG TABLET 650 MG PO (12:41)
[2023-11-25] MEDS: Dextrose 5 % and 0.9 % NaCl 1,000 ML 80 ML IVCONT (13:35)
--- NOTE | 2023-11-25 13:43 | MHC.CLN ---
RE: CONSULT PT S/P SX AND CONTINUES WITH PROLONGED POOR PO INTAKE REQUIRING PPN TO MEET NUTRIENT NEEDS MD TO START PPN STARTING 11/26/23 DISCUSSED WITH PHARMACY AND PROVIDER RECOMMEND PPN AT 50ML/HR TO PROVIDE 612KCALS, 120G DEXTROSE, 51G PROTEIN REPLETE LYTES NEEDED PT CONTINUES WITH BLAND DIET WITH NUTRITION SUPPLEMENTS PO INTAKE 0-25% MONITOR PO INTAKE, ENCOURAGE SUPPLEMENTS
--- NOTE | 2023-11-25 15:08 | PM.EVENT ---
Event Note Date of Service: 11/25/23 Event Note: rythm changed to bigeminy, pt reports feeling great , no sob, no chest pain. O2 not reading well on figer but better on ear. electrolytes were normal this morning, K 3.8, mag 1.6. K and mag supplement for tota, keep around 4 and Mag 2. Bilater venous isa duplex, rule dvt Time Spent With Patient Time: Total time managing care of this patient today ____ minutes.
[2023-11-25] MEDS: Potassium Chloride ER 20 MEQ TAB.ER.PRT 40 MEQ PO (15:30)
[2023-11-25] MEDS: Magnesium Sulfate/H2O 2 GM/50 ML PIGGYBACK IV (15:40)
--- NOTE | 2023-11-25 16:01 | PM.EVENT ---
Event Note Date of Service: 11/26/23 Event Note: Seen multiple times today Now back in bed Was able to have better oral intake today especially with ensure Also was out of bed for a long time and walked a little bit with the assistance Still with exercise intolerance DVT studies ordered by Hospitalist Labs okay Continue IV antibiotics for now DONATO drains with old blood, minimal Abdomen remained soft Very slow progress but stable Continue to try to increase oral intake, and activity every day I have ordered for PPN - discussed with general office assistant and this will be started tomorrow Time Spent With Patient Time: Total time managing care of this patient today ____ minutes.
--- NOTE | 2023-11-25 18:20 | PM.EVENT ---
Event Note Date of Service: 11/26/23 Event Note: DVT of lower extremities show bilateral DVT, unfortunately patient remains extremely high risk for bleeding complication, just having been transfused 2 units of RBCs just yesterday, and abscess drained inserted yesterday with sanguinous output and therefore not a candidate for anticoagulation at this time. His oxygen saturation has not changed, he denies chest pain or shortness. I have vascular surgery for an IVC filter as soon as feasible. Also requesting hematology consult. Finding communicated to surgery Time Spent With Patient Time: Total time managing care of this patient today ____ minutes.
[2023-11-25] MEDS: Doxazosin Mesylate 2 MG TABLET 4 MG PO (20:04)
[2023-11-25] MEDS: Losartan Potassium 50 MG TABLET 100 MG PO (20:05)
[2023-11-25 21:23] LABS: Vancomycin Random 10.9 mcg/mL (15-20)
--- NOTE | 2023-11-25 21:41 | HE.PHANOTE ---
RE: VANCO Random came back as 10.9 mg/L. Dose is increased to 1500 mg q12h starting @2300 11/25/23 (based on predicted AUC of 559 and trough of 17.2). Another random is scheduled for 11/26/23 @2100.
[2023-11-25] MEDS: vancomycin HCL 1,500 MG in 0.9 % Sodium Chloride 500 ML 333.33 MG IV (22:08)
[2023-11-26] VITALS (7 sets, daily range): BP systolic 146–180; BP diastolic 68–86; PULSE 81–98; RESP 18–20; TEMP 36.6–36.9; O2SAT 91–96
[2023-11-26] MEDS: oxyCODONE HCl Immed Release 5 MG TABLET 10 MG PO ×3 (00:44→21:11)
[2023-11-26] MEDS: Piperacillin Sodium/Tazobactam 3.375 GM in 0.9 % Sodium Chloride 50 ML IV ×4 (00:47→20:43)
[2023-11-26] MEDS: Dextrose 5 % and 0.9 % NaCl 1,000 ML 80 ML IVCONT (02:07)
[2023-11-26] MEDS: Morphine Sulfate 2 MG/ML CARTRIDGE IVPUSH ×2 (03:55→08:51)
[2023-11-26] MEDS: Omeprazole 20 MG CAPSULE.DR PO ×2 (06:26→16:38)
[2023-11-26 07:45] LABS: MANUAL DIFF FLAG NO
[2023-11-26 07:58] LABS: INTERNATIONAL NORM RATIO 1.3 (0.9-1.1); Prothrombin Time 15.2 SEC (11.1-13.3)
[2023-11-26 07:59] LABS: Basophils Percent Auto 0.2 % (0-2); Eosinophils Absolute Auto 0.1 X10*3/uL (0.0-0.4); Eosinophils Percent Auto 0.9 % (0-4); Hematocrit 26.8 % (42.0-52.0); Hemoglobin 9.1 g/dl (14.0-18.0); Imm Gran Abs Auto 0.07 X10*3/uL (0.00-0.03); Imm Gran Pct Auto 0.8 % (0.0-0.4); Lymphocytes Absolute Auto 0.6 X10*3/uL (1.2-4.9); Lymphocytes Percent Auto 6.7 % (20-40); Mean Corpuscular Hemoglobin 31.1 pg (27.0-33.0); Mean Corpuscular Volume 91.5 fL (80.0-98.0); Mean Platelet Volume 9.5 fL (9.4-12.4); Monocytes Absolute Auto 0.6 X10*3/uL (0.1-1.2); Monocytes Percent Auto 7.1 % (2-11); Neutrophils Absolute Auto 7.3 x10*3/uL (2.0-8.3); Neutrophils Percent Auto 84.3 % (45-73); Platelet Count 380 X10*3/uL (160-400); Red Blood Count 2.93 X10*6/uL (4.60-5.80); White Blood Count 8.6 X10*3/uL (4.8-10.8)
[2023-11-26 08:00] LABS: Partial Thromboplastin Time 30.9 SEC (26.0-36.4)
[2023-11-26 08:01] LABS: INTERNATIONAL NORM RATIO 1.3 (0.9-1.1); Prothrombin Time 15.9 SEC (11.1-13.3)
[2023-11-26 08:06] LABS: Albumin Level 2.5 g/dL (3.5-5.0); Anion Gap 12 (12-20); Blood Urea Nitrogen 12 mg/dL (9-16); Calcium 8.5 mg/dL (8.4-10.2); Carbon Dioxide 24 mmol/L (22-29); Chloride 109 mmol/L (96-108); Creatinine Clr Calc Pharmacy 78.4; Estimated Glomerular Filt Rate > 60; Glucose Random 135 mg/dL (60-115); Magnesium 2.2 mg/dL (1.6-2.6); Phosphorus 3.7 mg/dL (2.7-4.5); Potassium 3.8 mmol/L (3.3-5.1); Sodium 141 mmol/L (135-145)
[2023-11-26] MEDS: Metoprolol Tartrate 25 MG TABLET PO ×2 (08:35→20:49)
[2023-11-26] MEDS: Finasteride 5 MG TABLET PO (08:35)
[2023-11-26] MEDS: amLODIPine Besylate 5 MG TABLET PO ×2 (08:35→20:49)
[2023-11-26] MEDS: Docusate Sodium 100 MG CAPSULE PO ×2 (08:35→20:58)
--- NOTE | 2023-11-26 08:53 | P.PNIM_ITS ---
Subjective Subjective Date of Service: 11/26/23 Interval History: f/ u bacteremia, infected hematoma, now with bilateral DVT of legs has no sob or chest pain or leg pain--generally weak Physical Exam 2 Vital Signs: Vital Signs: Last Vital Signs Temp 98.5 F 11/26/23 08:00 Pulse 98 11/26/23 08:00 Resp 20 11/26/23 08:00 BP 156/86 H 11/26/23 08:00 Pulse Ox 96 11/26/23 08:00 O2 Del Method Nasal Cannula 11/26/23 08:00 O2 Flow Rate 1.5 11/26/23 08:00 Oxygen Flow Rate 2 11/25/23 15:00 BMI result Body Mass Index 33.4 Gen: in no acute distress, looks frustrated Lungs: clear to auscultation bilaterally Heart: regular rate and rhythm, no murmurs Abd: soft, some tenderness, non-distended, incisions intact, Ext: no edema, subtle swelling of both legs, no calv tenderness Skin: warm/well-perfused right sided drains with dark blood Neuro: alert and oriented x3, no focal findings Psych: appropriate affect Objective Data Active Medications Acetaminophen (Acetaminophen 325 Mg Tablet) 650 mg PO Q6H PRN PRN Reason: Pain, Mild (Pain Scale 1-3) Last Admin: 11/25/23 12:41 Dose: 650 mg Documented By: NIMA Acetaminophen (Acetaminophen 325 Mg Tablet) 975 mg PO Q6H PRN PRN Reason: headache Last Admin: 11/24/23 23:21 Dose: 975 mg Documented By: PARTH Amlodipine Besylate (Amlodipine Besylate 5 Mg Tablet) 5 mg PO BEDTIME [facility]; Protocol Last Admin: 11/25/23 20:05 Dose: 5 mg Documented By: MELISSA Amlodipine Besylate (Amlodipine Besylate 5 Mg Tablet) 5 mg PO DAILY [facility]; Protocol Last Admin: 11/26/23 08:35 Dose: 5 mg Documented By: LEONARDA Docusate Sodium (Docusate Sodium 100 Mg Capsule) 100 mg PO BID [facility] Last Admin: 11/26/23 08:35 Dose: 100 mg Documented By: LEONARDA Doxazosin Mesylate (Doxazosin Mesylate 2 Mg Tablet) 4 mg PO BEDTIME [facility]; Protocol Last Admin: 11/25/23 20:04 Dose: 4 mg Documented By: MELISSA Finasteride (Finasteride 5 Mg Tablet) 5 mg PO DAILY [facility] Last Admin: 11/26/23 08:35 Dose: 5 mg Documented By: LEONARDA Piperacillin Sod/Tazobactam (Sod 3.375 gm/ Sodium Chloride) 50 mls @ 100 mls/hr IV Q6H [facility] Last Admin: 11/26/23 08:40 Dose: 100 mls/hr Documented By: LEONARDA Dextrose/Sodium Chloride (D5ns) 1,000 mls @ 80 mls/hr IVCONT .[id number] [facility] Last Admin: 11/26/23 02:07 Dose: 80 mls/hr Documented By: ESTEBAN Vancomycin HCl 1,500 mg/ (Sodium Chloride) 500 mls @ 333.333 mls/hr IV Q12H [facility] Last Infusion: 11/25/23 23:48 Dose: Infused Documented By: MELISSA Losartan Potassium (Losartan Potassium 50 Mg Tablet) 100 mg PO BEDTIME [facility]; Protocol Last Admin: 11/25/23 20:05 Dose: 100 mg Documented By: MELISSA Metoclopramide HCl (Metoclopramide Hcl 10 Mg/2 Ml Vial) 5 mg IVPUSH Q6H PRN PRN Reason: Nausea and Vomiting Metoprolol Tartrate (Metoprolol Tartrate 25 Mg Tablet) 25 mg PO BID [facility]; Protocol Last Admin: 11/26/23 08:35 Dose: 25 mg Documented By: LEONARDA Morphine Sulfate (Morphine Sulfate 2 Mg/Ml Cartridge) 2 mg IVPUSH Q3H PRN; Protocol PRN Reason: Pain, Severe (Pain Scale 7-10) Last Admin: 11/26/23 08:51 Dose: 2 mg Documented By: LEONARDA Omeprazole (Omeprazole 20 Mg Capsule.Dr) 20 mg PO BID@0630,1630 [facility] Last Admin: 11/26/23 06:26 Dose: 20 mg Documented By: ESTEBAN Ondansetron HCl (Ondansetron Hcl 4 Mg/2 Ml Vial) 4 mg IVPUSH Q8H PRN PRN Reason: nausea Last Admin: 11/22/23 00:36 Dose: 4 mg Documented By: JONY Oxycodone HCl (Oxycodone Hcl Immed Release 5 Mg Tablet) 10 mg PO Q4H PRN PRN Reason: Pain, Moderate(Pain Scale 4-6) Last Admin: 11/26/23 00:44 Dose: 10 mg Documented By: ESTEBAN Pharmacy Consult (Consult Rx Vancomycin Dosing) 1 each MISCELLANE DAILY PRN PRN Reason: Consult order Pharmacy Consult (Consult Rx Parenteral Nutrition Ordering) 1 each MISCELLANE DAILY PRN PRN Reason: Consult order Sodium Chloride (0.9 % Sodium Chloride Flush 3 Ml Syringe) 3 ml IVFLUSH [facility] Last Admin: 11/26/23 08:36 Dose: 3 ml Documented By: LEONARDA Labs 11/26/23 06:36 11/26/23 06:38 Labs: Laboratory Results - last 24 hr 11/25/23 11/25/23 11/25/23 08:59 09:09 21:00 MCV 91.4 MCH 31.4 MCHC 34.3 RDW 14.4 Plt Count 380 MPV 9.2 L Immature Gran % (Auto) Neut % (Auto) Lymph % (Auto) [place] % (Auto) Eos % (Auto) Baso % (Auto) Lymph # (Auto) [place] # (Auto) Eos # (Auto) Baso # (Auto) Abs Immat Gran (auto) Absolute Neuts (auto) Absolute Nucleated RBC 0.000 Nucleated RBC % (auto) 0.0 PT INR APTT Anion Gap 12 Estim Creat Clear Calc 102.3 Estimated GFR > 60 Random Glucose 116 H Calcium 8.8 Phosphorus Magnesium 2.0 Albumin Random Vancomycin 10.9 L 11/26/23 11/26/23 11/26/23 06:35 06:36 06:38 MCV 91.5 MCH 31.1 MCHC 34.0 RDW 14.0 Plt Count 380 MPV 9.5 Immature Gran % (Auto) 0.8 H Neut % (Auto) 84.3 H Lymph % (Auto) 6.7 L [place] % (Auto) 7.1 Eos % (Auto) 0.9 Baso % (Auto) 0.2 Lymph # (Auto) 0.6 L [place] # (Auto) 0.6 Eos # (Auto) 0.1 Baso # (Auto) 0.0 Abs Immat Gran (auto) 0.07 H Absolute Neuts (auto) 7.3 Absolute Nucleated RBC 0.000 Nucleated RBC % (auto) 0.0 PT 15.2 H INR 1.3 H APTT 30.9 Anion Gap 12 Estim Creat Clear Calc 78.4 Estimated GFR > 60 Random Glucose 135 H Calcium 8.5 Phosphorus 3.7 Magnesium 2.2 Albumin 2.5 L Random Vancomycin 11/26/23 07:42 MCV MCH MCHC RDW Plt Count MPV Immature Gran % (Auto) Neut % (Auto) Lymph % (Auto) [place] % (Auto) Eos % (Auto) Baso % (Auto) Lymph # (Auto) [place] # (Auto) Eos # (Auto) Baso # (Auto) Abs Immat Gran (auto) Absolute Neuts (auto) Absolute Nucleated RBC Nucleated RBC % (auto) PT 15.9 H INR 1.3 H APTT Anion Gap Estim Creat Clear Calc Estimated GFR Random Glucose Calcium Phosphorus Magnesium Albumin Random Vancomycin Microbiology Microbiology Results: Microbiology 11/24/23 11:45 Gram Stain - Final Abscess Intra-abdominal Routine Culture - Final Enterococcus faecalis Anaerobic Culture - Preliminary Culture in progress. 11/22/23 00:23 Blood Culture - Final Blood - Venous Parabacteroides distasonis 11/22/23 00:23 Blood Culture - Final Blood - Venous Parabacteroides distasonis Assessment and Plan (1) Hematoma: Status: Acute (2) Aspiration pneumonia: Status: Acute (3) Acute blood loss anemia: Status: Acute Plan 73yo M with HTN, HLD, GERD, CAD s/p LEELA to RCA 2007 admitted to Gen Surg for lap roosevelt done 11/10/23, returned to OR 11/11/23 for control of bleeder near cystic duct stump/hematoma evacuation/DONATO drain had syncopal episode likely due to vasovagal syndrome + acute blood loss anemia, further complicated by postoperative paroxysmal AF w/ RVR converted on cardizem and metoprolol. Now with bacteremia, infected hematoma and new bilater DVTs 11/25 Parabacteroides distasonis bacteremia 2/2 from 11/23 Enteroccus Fe[place] in abscess drain -Continue Zosyn started 11/22, Vanco started 11/24 -Will discuss with ID to simplify Abx Bilateral LE DVTs d/t imobilities--remains at high risk for bleeding -To have IVC filter -Hematology consult New urinary retention likely from BPH -Croft, uro consult, Doxazosin cholelithiasis-- - s/p lap roosevelt 11/10, complicated by hematoma , management per surgery paroxysmal AF - transient, due to postoperative state, AC not indicated, has not recurred - continue metoprolol tartrate 25 mg bid acute blood loss anemia - transfused 1u plts, 2u FFP, 6u pRBCs - H+H, trending down slowly, monitor aspiration PNA - amp-sul 11/13-11/16, amox-clav 11/16-11/18. dependent pleural effusions - due to postop fluid shifts, encourage IS vasovagal syncope - resolved prerenal GUTIERREZ - resolved after transfusion + fluid resuscitation HTN - continue metoprolol tartrate, amlodipine, losartan CAD - ASA held for surgery, continue metoprolol GERD - PPI VTE ppx - SCDs dispo - PT eval: STR suggested when acute issues resolved. Total time managing care of this patient today: 35 minutes. Quality Stroke Does the patient have a stroke diagnosis?: No VTE Prior VTE?: No VTE Risk Level:: Medical - moderate - high VTE Device Contraindication: N/A - Device Ordered VTE Drug Contraindication: Treatment Not Indicated (Contraindicated in view of possible bleeding)
--- NOTE | 2023-11-26 09:07 | P.PNGS_ITS ---
Subjective Subjective Date of Service: 11/27/23 Interval history: no events reported overnight however, US shows DVTs Physical Exam 2 Vital Signs: Vital Signs: Last Vital Signs Temp 98.5 F 11/26/23 08:00 Pulse 98 11/26/23 08:00 Resp 20 11/26/23 08:00 BP 156/86 H 11/26/23 08:00 Pulse Ox 96 11/26/23 08:00 O2 Del Method Nasal Cannula 11/26/23 08:00 O2 Flow Rate 1.5 11/26/23 08:00 Oxygen Flow Rate 2 11/25/23 15:00 BMI result Body Mass Index 33.4 Const: Other: same shortness of breath Resp: Other: some SOB Cardio: Rate: regular rate GI: Other: soft, DONATO drains - minimal old blood Objective Data Active Medications Acetaminophen (Acetaminophen 325 Mg Tablet) 650 mg PO Q6H PRN PRN Reason: Pain, Mild (Pain Scale 1-3) Last Admin: 11/25/23 12:41 Dose: 650 mg Documented By: NIMA Acetaminophen (Acetaminophen 325 Mg Tablet) 975 mg PO Q6H PRN PRN Reason: headache Last Admin: 11/24/23 23:21 Dose: 975 mg Documented By: PARTH Amlodipine Besylate (Amlodipine Besylate 5 Mg Tablet) 5 mg PO BEDTIME [facility]; Protocol Last Admin: 11/25/23 20:05 Dose: 5 mg Documented By: MELISSA Amlodipine Besylate (Amlodipine Besylate 5 Mg Tablet) 5 mg PO DAILY [facility]; Protocol Last Admin: 11/26/23 08:35 Dose: 5 mg Documented By: LEONARDA Docusate Sodium (Docusate Sodium 100 Mg Capsule) 100 mg PO BID [facility] Last Admin: 11/26/23 08:35 Dose: 100 mg Documented By: LEONARDA Doxazosin Mesylate (Doxazosin Mesylate 2 Mg Tablet) 4 mg PO BEDTIME [facility]; Protocol Last Admin: 11/25/23 20:04 Dose: 4 mg Documented By: MELISSA Finasteride (Finasteride 5 Mg Tablet) 5 mg PO DAILY [facility] Last Admin: 11/26/23 08:35 Dose: 5 mg Documented By: LEONARDA Piperacillin Sod/Tazobactam (Sod 3.375 gm/ Sodium Chloride) 50 mls @ 100 mls/hr IV Q6H [facility] Last Admin: 11/26/23 08:40 Dose: 100 mls/hr Documented By: LEONARDA Dextrose/Sodium Chloride (D5ns) 1,000 mls @ 80 mls/hr IVCONT .[id number] [facility] Last Admin: 11/26/23 02:07 Dose: 80 mls/hr Documented By: ESTEBAN Vancomycin HCl 1,500 mg/ (Sodium Chloride) 500 mls @ 333.333 mls/hr IV Q12H [facility] Last Infusion: 11/25/23 23:48 Dose: Infused Documented By: MELISSA Losartan Potassium (Losartan Potassium 50 Mg Tablet) 100 mg PO BEDTIME [facility]; Protocol Last Admin: 11/25/23 20:05 Dose: 100 mg Documented By: MELISSA Metoclopramide HCl (Metoclopramide Hcl 10 Mg/2 Ml Vial) 5 mg IVPUSH Q6H PRN PRN Reason: Nausea and Vomiting Metoprolol Tartrate (Metoprolol Tartrate 25 Mg Tablet) 25 mg PO BID [facility]; Protocol Last Admin: 11/26/23 08:35 Dose: 25 mg Documented By: LEONARDA Morphine Sulfate (Morphine Sulfate 2 Mg/Ml Cartridge) 2 mg IVPUSH Q3H PRN; Protocol PRN Reason: Pain, Severe (Pain Scale 7-10) Last Admin: 11/26/23 08:51 Dose: 2 mg Documented By: LEONARDA Omeprazole (Omeprazole 20 Mg Capsule.Dr) 20 mg PO BID@0630,1630 [facility] Last Admin: 11/26/23 06:26 Dose: 20 mg Documented By: ESTEBAN Ondansetron HCl (Ondansetron Hcl 4 Mg/2 Ml Vial) 4 mg IVPUSH Q8H PRN PRN Reason: nausea Last Admin: 11/22/23 00:36 Dose: 4 mg Documented By: JONY Oxycodone HCl (Oxycodone Hcl Immed Release 5 Mg Tablet) 10 mg PO Q4H PRN PRN Reason: Pain, Moderate(Pain Scale 4-6) Last Admin: 11/26/23 00:44 Dose: 10 mg Documented By: ESTEBAN Pharmacy Consult (Consult Rx Vancomycin Dosing) 1 each MISCELLANE DAILY PRN PRN Reason: Consult order Pharmacy Consult (Consult Rx Parenteral Nutrition Ordering) 1 each MISCELLANE DAILY PRN PRN Reason: Consult order Sodium Chloride (0.9 % Sodium Chloride Flush 3 Ml Syringe) [facility] Last Admin: 11/26/23 08:36 Dose: 3 ml Documented By: LEONARDA Labs 11/27/23 09:03 11/27/23 09:03 Labs: Laboratory Results - last 24 hr 11/25/23 11/25/23 11/25/23 08:59 09:09 21:00 MCV 91.4 MCH 31.4 MCHC 34.3 RDW 14.4 Plt Count 380 MPV 9.2 L Immature Gran % (Auto) Neut % (Auto) Lymph % (Auto) [place] % (Auto) Eos % (Auto) Baso % (Auto) Lymph # (Auto) [place] # (Auto) Eos # (Auto) Baso # (Auto) Abs Immat Gran (auto) Absolute Neuts (auto) Absolute Nucleated RBC 0.000 Nucleated RBC % (auto) 0.0 PT INR APTT Anion Gap 12 Estim Creat Clear Calc 102.3 Estimated GFR > 60 Random Glucose 116 H Calcium 8.8 Phosphorus Magnesium 2.0 Albumin Random Vancomycin 10.9 L 11/26/23 11/26/23 11/26/23 06:35 06:36 06:38 MCV 91.5 MCH 31.1 MCHC 34.0 RDW 14.0 Plt Count 380 MPV 9.5 Immature Gran % (Auto) 0.8 H Neut % (Auto) 84.3 H Lymph % (Auto) 6.7 L [place] % (Auto) 7.1 Eos % (Auto) 0.9 Baso % (Auto) 0.2 Lymph # (Auto) 0.6 L [place] # (Auto) 0.6 Eos # (Auto) 0.1 Baso # (Auto) 0.0 Abs Immat Gran (auto) 0.07 H Absolute Neuts (auto) 7.3 Absolute Nucleated RBC 0.000 Nucleated RBC % (auto) 0.0 PT 15.2 H INR 1.3 H APTT 30.9 Anion Gap 12 Estim Creat Clear Calc 78.4 Estimated GFR > 60 Random Glucose 135 H Calcium 8.5 Phosphorus 3.7 Magnesium 2.2 Albumin 2.5 L Random Vancomycin 11/26/23 07:42 MCV MCH MCHC RDW Plt Count MPV Immature Gran % (Auto) Neut % (Auto) Lymph % (Auto) [place] % (Auto) Eos % (Auto) Baso % (Auto) Lymph # (Auto) [place] # (Auto) Eos # (Auto) Baso # (Auto) Abs Immat Gran (auto) Absolute Neuts (auto) Absolute Nucleated RBC Nucleated RBC % (auto) PT 15.9 H INR 1.3 H APTT Anion Gap Estim Creat Clear Calc Estimated GFR Random Glucose Calcium Phosphorus Magnesium Albumin Random Vancomycin Microbiology Microbiology Results: Microbiology 11/24/23 11:45 Gram Stain - Final Abscess Intra-abdominal Routine Culture - Final Enterococcus faecalis Anaerobic Culture - Preliminary Culture in progress. 11/22/23 00:23 Blood Culture - Final Blood - Venous Parabacteroides distasonis 11/22/23 00:23 Blood Culture - Final Blood - Venous Parabacteroides distasonis Procedures Date of Service Date of Service: 11/27/23 Progress Note: A&P Assessment and plan (1) Postoperative anemia due to acute blood loss: Status: Acute Assessment and Plan: oral intake better yesterday NPO today for IVC filter good UO - clearing may not be able to do much activity today after IVC filter Time Spent With Patient Time: Total time managing care of this patient today ____ minutes. Quality Stroke Does the patient have a stroke diagnosis?: No VTE Prior VTE?: No VTE Risk Level:: Medical - moderate - high VTE Device Contraindication: N/A - Device Ordered VTE Drug Contraindication: Treatment Not Indicated (Contraindicated in view of possible bleeding)
--- NOTE | 2023-11-26 09:23 | P.CONGS_ITS ---
History of Present Illness Consult details Consult date: 11/26/23 Reason for consult: other (DVT) Narrative: Pleasant 73-year-old male well known to me who was status post lap choly and procedure was complicated by a bleed. He was discovered to have a DVT yesterday. Unfortunately he is unable to be anticoagulated secondary to his bleed. He has been doing relatively well. He remains at high risk of bleeding complications and was transfused 2 units blood. He was discovered to have a DVT yesterday evening. He now presents for filter placement. Review of Systems 2 Review of Systems: Yes all other systems are reviewed and are negative Constitutional: Constitutional: Reports no additional constitutional complaints ENT: Reports Normal hearing present Cardiovascular: Cardiovascular: Denies chest pain, Denies chest pain at rest, Denies chest pain with activity and Denies pedal edema Respiratory: Respiratory: Denies cough Gastrointestinal: Gastrointestinal: Denies abdominal pain Musculoskeletal: Musculoskeletal: Denies abnormal gait, Denies muscle cramps and Denies radiating pain into limb Integumentary/Breasts: Skin/Breast: Denies skin ulcer and Denies wounds Neurologic: Reports Normal hearing present and Denies abnormal gait Psychiatric: Psychiatric: Reports no additional psychiatric complaints [facility] Past Medical History Medical History (Updated 11/26/23 @ 09:26 by David Parkinson MD) Fever of unknown origin Postoperative anemia due to acute blood loss [place] disease Hematoma GERD (gastroesophageal reflux disease) Elevated cholesterol Low back pain Depression CAD (coronary artery disease) Stable angina Gallstones Scoliosis Carpal tunnel syndrome C2 cervical fracture Arthritis Hypertension Family History Family History Father HTN (hypertension) Cardiac arrest Mother HTN (hypertension) Stroke Sister HTN (hypertension) Cancer Family history: reviewed and not pertinent Surgical History Surgical History S/P laparoscopic cholecystectomy Hx of carpal tunnel repair History of esophagogastroduodenoscopy (EGD) H/O colonoscopy History of cardiac cath Social History Social History Household Members: Spouse Household Members Other:: tereza Housing: House Are you a primary medicare insurance specialist to a significant other at home: No Do you presently have visiting nurse or other home services: No Unable to assess alcohol history related to: Unable to respond Alcohol intake: never Patient Tobacco Use Status: Former Tobacco user Quit Date: 1970 Tobacco use type: Cigarette Years Smoked: 3 +/- service: Yes Meds Allergies Allergy/AdvReac Type Severity Reaction Status Date / Time No Known Allergies Allergy Verified 11/10/23 08:20 Active Medications: Current Medications Acetaminophen (Acetaminophen 325 Mg Tablet) 650 mg PO Q6H PRN PRN Reason: Pain, Mild (Pain Scale 1-3) Last Admin: 11/25/23 12:41 Dose: 650 mg Acetaminophen (Acetaminophen 325 Mg Tablet) 975 mg PO Q6H PRN PRN Reason: headache Last Admin: 11/24/23 23:21 Dose: 975 mg Amlodipine Besylate (Amlodipine Besylate 5 Mg Tablet) 5 mg PO BEDTIME LEYLA; Protocol Last Admin: 11/25/23 20:05 Dose: 5 mg Amlodipine Besylate (Amlodipine Besylate 5 Mg Tablet) 5 mg PO DAILY LEYLA; Protocol Last Admin: 11/26/23 08:35 Dose: 5 mg Docusate Sodium (Docusate Sodium 100 Mg Capsule) 100 mg PO BID LEYLA Last Admin: 11/26/23 08:35 Dose: 100 mg Doxazosin Mesylate (Doxazosin Mesylate 2 Mg Tablet) 4 mg PO BEDTIME LEYLA; Protocol Last Admin: 11/25/23 20:04 Dose: 4 mg Finasteride (Finasteride 5 Mg Tablet) 5 mg PO DAILY LEYLA Last Admin: 11/26/23 08:35 Dose: 5 mg Piperacillin Sod/Tazobactam (Sod 3.375 gm/ Sodium Chloride) 50 mls @ 100 mls/hr IV Q6H LEYLA Last Admin: 11/26/23 08:40 Dose: 100 mls/hr Dextrose/Sodium Chloride (D5ns) 1,000 mls @ 80 mls/hr IVCONT .[id number] LEYLA Last Admin: 11/26/23 02:07 Dose: 80 mls/hr Vancomycin HCl 1,500 mg/ (Sodium Chloride) 500 mls @ 333.333 mls/hr IV Q12H LEYLA Last Infusion: 11/25/23 23:48 Dose: Infused Losartan Potassium (Losartan Potassium 50 Mg Tablet) 100 mg PO BEDTIME LEYLA; Protocol Last Admin: 11/25/23 20:05 Dose: 100 mg Metoclopramide HCl (Metoclopramide Hcl 10 Mg/2 Ml Vial) 5 mg IVPUSH Q6H PRN PRN Reason: Nausea and Vomiting Metoprolol Tartrate (Metoprolol Tartrate 25 Mg Tablet) 25 mg PO BID [facility]; Protocol Last Admin: 11/26/23 08:35 Dose: 25 mg Morphine Sulfate (Morphine Sulfate 2 Mg/Ml Cartridge) 2 mg IVPUSH Q3H PRN; Protocol PRN Reason: Pain, Severe (Pain Scale 7-10) Last Admin: 11/26/23 08:51 Dose: 2 mg Omeprazole (Omeprazole 20 Mg Capsule.Dr) 20 mg PO BID@0630,1630 [facility] Last Admin: 11/26/23 06:26 Dose: 20 mg Ondansetron HCl (Ondansetron Hcl 4 Mg/2 Ml Vial) 4 mg IVPUSH Q8H PRN PRN Reason: nausea Last Admin: 11/22/23 00:36 Dose: 4 mg Oxycodone HCl (Oxycodone Hcl Immed Release 5 Mg Tablet) 10 mg PO Q4H PRN PRN Reason: Pain, Moderate(Pain Scale 4-6) Last Admin: 11/26/23 00:44 Dose: 10 mg Pharmacy Consult (Consult Rx Vancomycin Dosing) 1 each MISCELLANE DAILY PRN PRN Reason: Consult order Pharmacy Consult (Consult Rx Parenteral Nutrition Ordering) 1 each MISCELLANE DAILY PRN PRN Reason: Consult order Sodium Chloride (0.9 % Sodium Chloride Flush 3 Ml Syringe) 3 ml IVFLUSH QSHIFT [facility] Last Admin: 11/26/23 08:36 Dose: 3 ml Home Medications Medication Instructions Recorded Confirmed Last Taken Type aspirin 81 mg tablet,delayed 81 mg PO DAILY 01/13/21 11/05/23 11/09/23 History release (Adult Low Dose Aspirin) atorvastatin 20 mg tablet 20 mg PO Q OTHER DAY 01/13/21 11/10/23 11/08/23 History losartan 100 mg tablet 100 mg PO BEDTIME 01/13/21 11/10/23 11/09/23 History metoprolol tartrate 25 mg tablet 12.5 mg PO BID 01/13/21 11/05/23 11/10/23 00:10 History omeprazole 40 mg capsule,delayed 40 mg PO BEDTIME 01/13/21 11/10/2324 History release tramadol 50 mg tablet 50 mg PO BID PRN Pain 01/13/21 11/10/23 Unknown History acetaminophen 500 mg tablet 500 mg PO Q6H PRN Pain 11/03/23 11/10/23 Unknown History cholecalciferol (vitamin D3) 25 25 mcg PO DAILY 11/03/23 11/10/23 11/09/23 History mcg (1,000 unit) capsule glucosamine-chondroitin 500 mg-400 1 cap PO DAILY 11/03/23 11/10/23 11/09/23 History mg capsule magnesium oxide 500 mg tablet 500 mg PO DAILY 11/03/23 11/10/23 11/09/23 History mecobalamin (vitamin B12) 2,500 3,000 mcg PO DAILY 11/03/23 11/10/23 11/09/23 History mcg chewable tablet omega 6-evd-yij-fish oil 1,000 mg 1 cap PO DAILY 11/03/23 11/05/23 11/09/23 History (120 mg-180 mg) capsule (Fish Oil) amlodipine 5 mg tablet 5 mg PO BEDTIME 11/05/23 11/10/23 11/09/23 History Physical Exam 2 Vital Signs: Vital Signs: Last Vital Signs Temp 98.5 F 11/26/23 08:00 Pulse 98 11/26/23 08:00 Resp 20 11/26/23 08:00 BP 156/86 H 11/26/23 08:00 Pulse Ox 96 11/26/23 08:00 O2 Del Method Nasal Cannula 11/26/23 08:00 O2 Flow Rate 1.5 11/26/23 08:00 Oxygen Flow Rate 2 11/25/23 15:00 BMI result Body Mass Index 33.4 Const: General: cooperative, healthy appearing and comfortable O rientation/consciousness: oriented to person, oriented to place and oriented to time HEENT: Head: Yes normal to inspection Neck: Neck: Yes normal visual inspection Carotids: no bruits Chest: Chest palpation & inspection: normal inspection of the chest Resp: Effort & Inspection: normal respiratory effort and able to speak in complete sentences Auscultation: clear to auscultation bilaterally, no crackles, no rales, no rhonchi and no wheezes Cardio: Rate: regular rate Rhythm: regular rhythm Heart sounds: S1 normal heart sound present and S2 normal heart sound present Bruits: no carotid bruits Peripheral pulses: Peripheral pulses 2+ throughout GI: Inspection: Yes normal to inspection Skin: Wounds: no wounds Hair: normal Neuro: General: oriented to person, oriented to place and oriented to time Cranial nerves: Yes CN's II-XII intact bilaterally and Yes Normal hearing present Cognition (Neuro): normal cognition Motor exam (neuro): 5/5 motor strength present throughout Extrem: Other: venous exam: No significant superficial varicosities or spider telangiectasias, minimal edema General: No clubbing, No cyanosis and No edema Psych: Appearance: grossly normal Mental Status: mental status grossly normal Speech and movement: Normal speech and movement present Results Labs 11/26/23 06:36 11/26/23 06:38 Labs: Abnormal lab results 11/25/23 11/25/23 11/26/23 Range/Units 09:09 21:00 06:35 RBC (4.60-5.80) X10*6/uL Hgb (14.0-18.0) g/dl Hct (42.0-52.0) % Immature Gran % (Auto) (0.0-0.4) % Neut % (Auto) (45-73) % Lymph % (Auto) (20-40) % Lymph # (Auto) (1.2-4.9) X10*3/uL Abs Immat Gran (auto) (0.00-0.03) X10*3/uL PT 15.2 H (11.1-13.3) SEC INR 1.3 H (0.9-1.1) Chloride (96-108) mmol/L Random Glucose 116 H (60-115) mg/dL Albumin (3.5-5.0) g/dL Random Vancomycin 10.9 L (15-20) mcg/mL 11/26/23 11/26/23 11/26/23 Range/Units 06:36 06:38 07:42 RBC 2.93 L (4.60-5.80) X10*6/uL Hgb 9.1 L (14.0-18.0) g/dl Hct 26.8 L (42.0-52.0) % Immature Gran % (Auto) 0.8 H (0.0-0.4) % Neut % (Auto) 84.3 H (45-73) % Lymph % (Auto) 6.7 L (20-40) % Lymph # (Auto) 0.6 L (1.2-4.9) X10*3/uL Abs Immat Gran (auto) 0.07 H (0.00-0.03) X10*3/uL PT 15.9 H (11.1-13.3) SEC INR 1.3 H (0.9-1.1) Chloride 109 H (96-108) mmol/L Random Glucose 135 H (60-115) mg/dL Albumin 2.5 L (3.5-5.0) g/dL Random Vancomycin (15-20) mcg/mL Short CBC 11/26/23 Range/Units 06:36 WBC 8.6 (4.8-10.8) X10*3/uL Hgb 9.1 L (14.0-18.0) g/dl Hct 26.8 L (42.0-52.0) % Plt Count 380 (160-400) X10*3/uL BMP 11/25/23 11/26/23 09:09 06:38 Sodium 138 141 Potassium 3.8 3.8 Chloride 104 109 H Carbon Dioxide 26 24 BUN 12 12 Creatinine 0.69 0.90 Calcium 8.8 8.5 Liver Function 11/26/23 Range/Units 06:38 Albumin 2.5 L (3.5-5.0) g/dL All other labs normal. Assessment and Plan (1) DVT (deep venous thrombosis): Qualifiers: DVT location: lower extremity Affected thrombotic vein of extremity: t ibial Laterality: bilateral Chronicity: acute Qualified Code(s): I82.443 - Acute embolism and thrombosis of tibial vein, bilateral Status: Acute Plan In short patient has acute onset DVT. Unfortunately he is unable to be anticoagulated. Will require IVC filter placement. Risks benefits complications of the procedure were discussed in detail with the patient. He understood and consented. Procedures Date of Service Date of Service: 11/26/23
--- NOTE | 2023-11-26 10:22 | P.OP_ITS ---
Operative Note Operative Note Date of Service: 11/26/23 Narrative: Angiogram report from [facility] Preoperative diagnosis: Deep venous thrombosis Postoperative diagnosis: Same Procedure: 1. Ultrasound-guided right common femoral vein access 2. Inferior vena cavogram 3. Placement of inferior vena cava filter Surgeon:David Parkinson M.D., FACS, RPVI [employer] Business Representative:None Anesthesia: Local only Specimens:none Drains:none Estimated blood loss: Less than 10 ml Implant: Bard Eliana retrievable vena cava filter Indications: 73-year-old gentleman who originally underwent a lap roosevelt with re-exploration for postop bleeding has had a prolonged hospital course. He has developed lower extremity DVTs. Due to the inability to anticoagulate he now presents for vena cava filter placement. The patient has signed the informed consent after reviewing risks, complications, benefits, and alternatives previously discussed with the patient. The patient was given the opportunity to ask any additional questions or voice any concerns. All questions were answered to the patient's satisfaction. Procedure in detail: Patient was brought to the angiography suite prior to which a time-out was called for patient identification and site verification. Bilateral groins were prepped and draped in the standard surgical fashion. Under ultrasound guidance right common femoral vein was punctured with micro puncture needle and wire. Subsequently a precision 5 [place] sheath was then placed. Bentson wire was advanced to the level of the vena cava. Vena cavogram was then undertaken through the 5 [place] sheath. This was a baseline study to define the variant anatomy, caval size, location and number of renal veins, and to evaluate for ileo caval thrombus. Under direct fluoroscopic guidance we exchanged out the 5 [place] sheath for the Bard eliana sheath. We brought the filter into position. This was then subsequently deployed. The inner cannula was then removed. Through the sheath a hand injection was performed to assess filter position. Once this was accomplished the sheath was then removed, and hemostasis was achieved with 10 minutes of direct compression. No immediate complications occurred and the patient was returned to the recovery suite with no complications Interpretation of films: 1. Ultrasound demonstrates appropriate femoral vein puncture. Image of which was saved. 2. There was no ileal caval thrombus noted 3. There are single renal veins bilaterally and the IVC is normal in caliber. There is no aberrant anatomy. 4. The filter was deployed appropriately and position below the lowest renal vein. Conclusion: 1. Successful placement of Bard Eliana IVC filter 2. Anticoagulation status: Resume regular anticoagulation as indicated 4 hours post filter placement This note is constructed using voice recognition software. While every effort has been made to ensure accuracy, education counselor errors may have been included. Thank you for allowing me to participate in the care of your patient. Yours sincerely, David Parkinson MD, FACS, R.P.V.I.
--- NOTE | 2023-11-26 10:36 | MHC.CLN ---
F/U PT CONTINUES WITH PROLONGED POOR PO INTAKE REQUIRING PPN TO MEET NUTRIENT NEEDS PT CURRENTLY NPO PENDING PROCEDURE MD TO START PPN STARTING 11/26/23 DISCUSSED WITH PHARMACY AND PROVIDER 11/26 RECOMMEND PPN AT 50ML/HR TO PROVIDE 612KCALS, 120G DEXTROSE, 51G PROTEIN REPLETE LYTES NEEDED 11/27 RECOMMEND PPN INCREASE TO 70ML/HR TO PROVIDE 857KCALS, 168G DEXTROSE, 71G PROTEIN CHECK TRIG LEVEL 11/28 RECOMMEND PPN INCREASE TO MAX GOAL RATE 90ML/HR WITH 79G LIPIDS TO PROVIDE 1892TOTAL KCALS (25KCALS/KG), 216G DEXTROSE, 92G PROTEIN (1.2G/KG) REPLETE LYTES NEEDED DISCUSSED WEEKEND PLANS WITH PHARMACY RD CAN BE CONTACTED [facility] LANDON HYATT IF NEEDED DURING OFF HOURS
--- NOTE | 2023-11-26 11:49 | MHC.CM.PN ---
EMR reviewed and per MD rounds, pt is not medically cleared for D/C due to pt developing DVT yesterday evening, and received IVC filter placement today. CM will continue to follow.
[2023-11-26] MEDS: vancomycin HCL 1,500 MG in 0.9 % Sodium Chloride 500 ML 333.3 MG IV (12:06)
--- NOTE | 2023-11-26 12:11 | PM.HEMONCCN ---
Subjective - Subjective Chief complaint: Consult for: Bilateral DVT. Status post recent cholecystectomy with postop bleeding Patient: new to practice Consult date: 11/26/23 Requesting Physician: Kyle. Primary Care Provider: Agustin Mullen MD Medical Summary: DIAGNOSIS: BILATERAL LOWER EXTREMITY DVT. RECENT BLEEDING STATUS POST CHOLECYSTECTOMY. HPI - Consult Narrative Reason for consult: Consult for: 1. Bilateral DVT. 2. Bleeding post cholecystectomy Narrative: Darrick Ty is a 73 year old gentleman who was admitted to General surgery s/p laparoscopic cholecystectomy for symptomatic gallstones. Procedure was uneventful and was tolerated well. While being prepared for discharge he had a syncopal episode in the PACU. He reported uncontrolled pain levels at that time and denied any other prodrome including lightheadedness, visual changes, shortness of breath, palpitations, or chest pain. He was unresponsive and diaphoretic for several seconds for responded to sternal rub. Anesthesia felt episode was a vagal episode. He was admitted to general surgery for further management with consult placed hospitalist service due to syncopal episode. He had to be taken back to the OR 11/11/23 for control of bleeder near cystic duct stump/hematoma evacuation/DONATO drain. Postoperatively, He has required multiple units of packed RBCs on account of recurrent drop in his hematocrit. He has received FFP and platelets as well. The patient currently reports feeling rather tired. He is comfortable at rest but reports significant discomfort in RUQ with any movement. He states he has had episodes of near syncope about 3 years ago while on a ladder but did not syncopize at that time. About 13 years ago did syncopize after working outside in June on a hot day. DATA BASE: WBC 8.6, HGB 9.1, HCT 26.8, PLT 380. Ultrasound of the legs from 11/25: Bilateral DVT as described above. PAST MEDICAL HISTORY: History of hypertension, Hyperlipidemia, GERD, Coronary artery disease s/p LEELA RCA 2007. Review of Systems - Constitutional Reports system reviewed and no additional complaints, except as documented - Eyes Reports system reviewed and no additional complaints, except as documented - ENT Reports system reviewed and no additional complaints, except as documented - Cardiovascular Reports system reviewed and no additional complaints, except as documented - Respiratory Reports no additional respiratory complaints - Gastrointestinal Reports system reviewed and no additional complaints, except as documented - Genitourinary Genitourinary: Reports no additional male genitourinary complaints - Musculoskeletal Reports system reviewed and no additional complaints, except as documented - Integumentary/Breasts Skin/Breast: Reports no additional skin complaints - Neurologic Reports system reviewed and no additional complaints, except as documented, Reports hearing normal, Reports weakness, Denies abnormal gait - Psychiatric Reports system reviewed and no additional complaints, except as documented - Endocrine Reports no additional endocrine complaints - Hematologic/Lymphatic Reports system reviewed and no additional complaints, except as documented - Allergic/Immunologic Reports system reviewed and no additional complaints, except as documented Oncology Screenings - ECOG Performance Status ECOG Performance Status: 2 [facility] Medical History: Medical History (Last Updated 11/23/23 @ 23:44 by Linsey Willson MD) Arthritis C2 cervical fracture CAD (coronary artery disease) Carpal tunnel syndrome Depression Elevated cholesterol Fever of unknown origin Gallstones GERD (gastroesophageal reflux disease) [place] disease Hematoma Hypertension Low back pain Postoperative anemia due to acute blood loss Scoliosis Stable angina Family History: Family History (Last Reviewed 11/23/23 @ 23:43 by Linsey Willson MD) Father HTN (hypertension) Cardiac arrest Mother HTN (hypertension) Stroke Sister HTN (hypertension) Cancer Family history: reviewed and not pertinent Surgical History: Surgical History (Last Reviewed 11/23/23 @ 23:43 by Linsey Willson MD) H/O colonoscopy History of cardiac cath History of esophagogastroduodenoscopy (EGD) Hx of carpal tunnel repair S/P laparoscopic cholecystectomy Social History: Social History (Last Reviewed 11/23/23 @ 23:43 by Linsey Willson MD) Living Situation History: Household Members: Spouse Household Members Other:: tereza Housing: House Are you a primary hearing care practitioner to a significant other at home: No Do you presently have visiting nurse or other home services: No Alcohol History: Unable to assess alcohol history related to: Unable to respond Tobacco History: Patient Tobacco Use Status: Former Tobacco user Tobacco use type: Cigarette Years Smoked: 3 +/- Smoke Quit Date: 1970 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 Home Medications and Allergies Current Medications: Current Medications Acetaminophen (Acetaminophen 325 Mg Tablet) 650 mg PO Q6H PRN PRN Reason: Pain, Mild (Pain Scale 1-3) Last Admin: 11/25/23 12:41 Dose: 650 mg Acetaminophen (Acetaminophen 325 Mg Tablet) 975 mg PO Q6H PRN PRN Reason: headache Last Admin: 11/24/23 23:21 Dose: 975 mg Amlodipine Besylate (Amlodipine Besylate 5 Mg Tablet) 5 mg PO BEDTIME [facility]; Protocol Last Admin: 11/25/23 20:05 Dose: 5 mg Amlodipine Besylate (Amlodipine Besylate 5 Mg Tablet) 5 mg PO DAILY [facility]; Protocol Last Admin: 11/26/23 08:35 Dose: 5 mg Docusate Sodium (Docusate Sodium 100 Mg Capsule) 100 mg PO BID [facility] Last Admin: 11/26/23 08:35 Dose: 100 mg Doxazosin Mesylate (Doxazosin Mesylate 2 Mg Tablet) 4 mg PO BEDTIME [facility]; Protocol Last Admin: 11/25/23 20:04 Dose: 4 mg Finasteride (Finasteride 5 Mg Tablet) 5 mg PO DAILY [facility] Last Admin: 11/26/23 08:35 Dose: 5 mg Piperacillin Sod/Tazobactam (Sod 3.375 gm/ Sodium Chloride) 50 mls @ 100 mls/hr IV Q6H [facility] Last Infusion: 11/26/23 09:34 Dose: Infused Dextrose/Sodium Chloride (D5ns) 1,000 mls @ 80 mls/hr IVCONT .[id number] [facility] Last Admin: 11/26/23 02:07 Dose: 80 mls/hr Vancomycin HCl 1,500 mg/ (Sodium Chloride) 500 mls @ 333.333 mls/hr IV Q12H [facility] Last Infusion: 11/25/23 23:48 Dose: Infused Nutrition (Parenteral) (Parenteral Nutrition) 1,200 mls @ 50 mls/hr IV .Q24H [facility]; Protocol Stop: 11/27/23 20:59 Losartan Potassium (Losartan Potassium 50 Mg Tablet) 100 mg PO BEDTIME [facility]; Protocol Last Admin: 11/25/23 20:05 Dose: 100 mg Metoclopramide HCl (Metoclopramide Hcl 10 Mg/2 Ml Vial) 5 mg IVPUSH Q6H PRN PRN Reason: Nausea and Vomiting Metoprolol Tartrate (Metoprolol Tartrate 25 Mg Tablet) 25 mg PO BID [facility]; Protocol Last Admin: 11/26/23 08:35 Dose: 25 mg Omeprazole (Omeprazole 20 Mg Capsule.Dr) 20 mg PO BID@0630,1630 [facility] Last Admin: 11/26/23 06:26 Dose: 20 mg Ondansetron HCl (Ondansetron Hcl 4 Mg/2 Ml Vial) 4 mg IVPUSH Q8H PRN PRN Reason: nausea Last Admin: 11/22/23 00:36 Dose: 4 mg Oxycodone HCl (Oxycodone Hcl Immed Release 5 Mg Tablet) 10 mg PO Q4H PRN PRN Reason: Pain, Moderate(Pain Scale 4-6) Last Admin: 11/26/23 00:44 Dose: 10 mg Pharmacy Consult (Consult Rx Vancomycin Dosing) 1 each MISCELLANE DAILY PRN PRN Reason: Consult order Pharmacy Consult (Consult Rx Parenteral Nutrition Ordering) 1 each MISCELLANE DAILY PRN PRN Reason: Consult order Sodium Chloride (0.9 % Sodium Chloride Flush 3 Ml Syringe) 3 ml IVFLUSH [facility] Last Admin: 11/26/23 08:36 Dose: 3 ml Home Medications Medication Instructions Recorded Confirmed Type aspirin 81 mg tablet,delayed 81 mg PO DAILY 01/13/21 11/05/23 History release (Adult Low Dose Aspirin) atorvastatin 20 mg tablet 20 mg PO Q OTHER DAY 01/13/21 11/10/23 History losartan 100 mg tablet 100 mg PO BEDTIME 01/13/21 11/10/23 History metoprolol tartrate 25 mg tablet 12.5 mg PO BID 01/13/21 11/05/23 History omeprazole 40 mg capsule,delayed 40 mg PO BEDTIME 01/13/21 11/10/23 History release tramadol 50 mg tablet 50 mg PO BID PRN Pain 01/13/21 11/10/23 History acetaminophen 500 mg tablet 500 mg PO Q6H PRN Pain 11/03/23 11/10/23 History cholecalciferol (vitamin D3) 25 25 mcg PO DAILY 11/03/23 11/10/23 History mcg (1,000 unit) capsule glucosamine-chondroitin 500 mg-400 1 cap PO DAILY 11/03/23 11/10/23 History mg capsule magnesium oxide 500 mg tablet 500 mg PO DAILY 11/03/23 11/10/23 History mecobalamin (vitamin B12) 2,500 3,000 mcg PO DAILY 11/03/23 11/10/23 History mcg chewable tablet omega [id number]-fish oil 1,000 mg 1 cap PO DAILY 11/03/23 11/05/23 History (120 mg-180 mg) capsule (Fish Oil) amlodipine 5 mg tablet 5 mg PO BEDTIME 11/05/23 11/10/23 History Allergies Allergy/AdvReac Type Severity Reaction Status Date / Time No Known Allergies Allergy Verified 11/10/23 08:20 Physical Exam Vital signs: Vital Signs Temp 97.9 F 11/26/23 11:36 Pulse 81 11/26/23 11:36 Resp 20 11/26/23 11:36 BP 169/81 H 11/26/23 11:36 Pulse Ox 96 11/26/23 11:36 O2 Del Method Nasal Cannula 11/26/23 11:36 O2 Flow Rate 2 11/26/23 11:36 Intake & Output 11/25/23 11/26/23 11/26/23 18:59 06:59 18:59 Intake Total 1461.333 / 3461.333 2000 / 3461.333 50 / 50 Output Total 70 / 2140 2070 / 2140 Balance 1391.333 / 1321.333 -70 / 1321.333 50 / 50 Urine Output (Average ml/kg/hr) 1.77 1.77 Intake: Intake, Oral Amount 420 / 870 450 / 870 Intake, IV Amount 1041.333 / 2591.333 1550 / 2591.333 50 / 50 Magnesium Sulfate/H2O 2 gm In 50 / 50 50 ml @ 25 mls/hr IV ONCE ONE Rx#:[id number] Piperacillin Sodium/Tazobactam 100 / 150 50 / 150 50 / 50 3.375 gm In 0.9 % Sodium Chloride 50 ml @ 100 mls/hr IV Q6H [facility] Rx#:[id number] vancomycin HCL 1,250 mg In 0.9 250 / 250 % Sodium Chloride 250 ml @ 166. 667 mls/hr IV Q12H [facility] Rx#: [id number] vancomycin HCL 1,500 mg In 0.9 500 / 500 % Sodium Chloride 500 ml @ 333. 333 mls/hr IV Q12H [facility] Rx#: [id number] Dextrose 5 % and 0.9 % NaCl 1, 1000 / 1000 000 ml @ 80 mls/hr IVCONT . [id number] [facility] Rx#:[id number] Lactated Ringers 1,000 ml @ 80 641.333 / 641.333 mls/hr IVCONT .[id number] [facility] Rx#: [id number] Output: Output, Urine Amount (Catheter) 1999 Straight 1999 Output, Drainage Amount 70 / 140 70 / 140 DONATO drain 11/24/23 70 / 130 60 / 130 DONATO drain 11/11/23 Other: Meal Refused No NPO Yes Breakfast % Eaten 25% Lunch % Eaten 25% Dinner % Eaten 0% Urine Color Yellow Weight 94 kg Weight 94 kg - Constitutional Present: moderate distress - Routine HEENT Exam Head: Present: normocephalic Eye: Present: normal appearance, PERRL ENT: Present: mucous membranes moist - Routine Neck Exam Present: supple - Routine Cardiovascular Exam Cardiovascular: Present: RRR, S1, S2 - Routine Abdominal Exam Present: soft, nontender - Routine Extremities Exam Present: nontender Hem/Onc Consult Result - Labs CBC & Chem 7: 11/29/23 06:47 11/29/23 06:47 Labs: Short CBC 11/26/23 Range/Units 06:36 WBC 8.6 (4.8-10.8) X10*3/uL Hgb 9.1 L (14.0-18.0) g/dl Hct 26.8 L (42.0-52.0) % Plt Count 380 (160-400) X10*3/uL BMP 11/26/23 06:38 Sodium 141 Potassium 3.8 Chloride 109 H Carbon Dioxide 24 BUN 12 Creatinine 0.90 Calcium 8.5 Liver Function 11/26/23 Range/Units 06:38 Albumin 2.5 L (3.5-5.0) g/dL Assessment and Plan Patient Active problem list reviewed?: Yes (1) Deep vein thrombosis (DVT) Status: Acute Assessment and plan: 73 yo gentleman, with HTN, HLD, GERD, CAD s/p LEELA to RCA 2007 admitted to Gen Surg for lap roosevelt done 11/10/23,. He had to be taken back to the OR 11/11/23 for control of bleeder near cystic duct stump/hematoma evacuation/DONATO drain. He had syncopal episode likely due to vasovagal syndrome + acute blood loss anemia, further complicated by postoperative paroxysmal AF w/ RVR converted on cardizem and metoprolol. He now has bacteremia, and infected hematoma. It appears that he is still bleeding. He required 2 units of blood on 11/24. His hemoglobin is trickling down again. He was noted to have bilateral lower extremity edema. Ultrasound of his legs from yesterday revealed: Bilateral DVT as described above. He has been seen by vascular and underwent IVC filter placement by Dr. Parkinson. Patient is at high risk of bleeding complications, with anticoagulation. His course has been complicated by repeated drop in his hemoglobin requiring blood transfusions, over the past couple of weeks. Anticoagulating him could be catastrophic. He already has had the filter placed so that should provide some protection against PE. PLAN: I would recommend carefully following his blood count as you are doing. Transfusions as required. Can consider IV heparin at a later date, if and when his H&H stabilize completely. Thank you for this consult, I will follow along with you. CC: Dr. Wright. CTA of the lungs: Suboptimal contrast bolus timing. Despite this limitation, there are identified multiple bilateral pulmonary arterial filling defects involving the lobar, segmental and subsegmental branches. Moderate clot burden. No evidence of right heart strain. Moderate right pleural effusion. Small left pleural effusion. Bibasilar consolidation/compressive atelectasis. To start on Low dose S/C Heparin for further clot progression. (2) DVT (deep venous thrombosis) Status: Acute - Time Spent With Patient Time Spent with Patient (in minutes): 30
[2023-11-26] MEDS: iohexoL 350 MG/ML 100 ML INFUS..BTL IV (14:35)
--- NOTE | 2023-11-26 17:28 | PM.EVENT ---
Event Note Date of Service: 11/27/23 Event Note: CT of chest demonstarted bilateral PE in all lobes but no central or saddle emboli and thus no indication for trombolytic which he could not tolerate at this time, giving high risk for bleeding with full anticoagulation at this time, will try DVT prevention dose of heparin 5000 bid and close monitor for any bleeding complications with ultimate goal of full anticoagulation at a later time Time Spent With Patient Time: Total time managing care of this patient today ____ minutes.
--- NOTE | 2023-11-26 17:37 | PM.EVENT ---
Event Note Date of Service: 11/27/23 Event Note: CT angio shows multilobar PE; no saddle or large vessel involvement explained this to pt I feel he is at risk for rebleed with full anticoagulation IVC filter in place abd soft he is on 2LPM of O2 by NC explained to him importance of getting OOB more increase oral intake discussions with Charlene done Time Spent With Patient Time: Total time managing care of this patient today ____ minutes.
[2023-11-26] MEDS: Heparin Sodium,Porcine 5,000 UNIT/ML VIAL 5000 UNIT SUBCUT (18:04)
[2023-11-26 18:55] LABS: Fibrinogen > 700 MG/DL (259-690)
[2023-11-26] MEDS: Parenteral Nutrition 1,200 ML 50 ML IV (20:35)
[2023-11-26] MEDS: Losartan Potassium 50 MG TABLET 100 MG PO (20:49)
[2023-11-26] MEDS: Doxazosin Mesylate 2 MG TABLET 4 MG PO (20:49)
[2023-11-26 21:48] LABS: Vancomycin Random 17.4 mcg/mL (15-20)
[2023-11-27] VITALS (7 sets, daily range): BP systolic 136–184; BP diastolic 64–84; PULSE 74–105; RESP 18–20; TEMP 36.4–36.8; O2SAT 91–100
[2023-11-27] MEDS: vancomycin HCL 1,250 MG in 0.9 % Sodium Chloride 250 ML 166.67 MG IV ×3 (00:13→21:34)
[2023-11-27] MEDS: polyethylene glycoL 3350 17 GM POWD.PACK PO (02:25)
[2023-11-27] MEDS: Piperacillin Sodium/Tazobactam 3.375 GM in 0.9 % Sodium Chloride 50 ML IV ×4 (02:25→18:04)
[2023-11-27] MEDS: Omeprazole 20 MG CAPSULE.DR PO ×2 (05:49→16:47)
[2023-11-27] MEDS: Heparin Sodium,Porcine 5,000 UNIT/ML VIAL 5000 UNIT SUBCUT ×2 (05:53→16:47)
--- NOTE | 2023-11-27 07:20 | PC.NURSE ---
Patient alert and oriented to self and place, pt lethargic but easily arousable.Fluids encouraged and tolerated well. Nuero checks done and within normal limits.
--- NOTE | 2023-11-27 07:30 | PC.NURSE ---
Assumed care of patient at this time. Patient refusing all PO medications today- stating, I refused all my fucking meds . Patient noted to be apathetic, fatigued, and having minimal conversation with staff this morning. Education provided, reinforced medication adherence importance, made aware his blood pressure was high this morning, reviewed risks associated with higher blood pressures including stroke and VT. Given options to just take certain medications at this time, for example ones for just blood pressure, but patient continued to refuse. Will attempt to administer medications later on with reinforcement on their importance.
[2023-11-27 09:14] LABS: Hematocrit 27.5 % (42.0-52.0); Hemoglobin 9.2 g/dl (14.0-18.0); Mean Corpuscular HGB Conc 33.5 g/dl (31.0-36.0); Mean Corpuscular Hemoglobin 31.2 pg (27.0-33.0); Mean Corpuscular Volume 93.2 fL (80.0-98.0); Mean Platelet Volume 9.1 fL (9.4-12.4); Platelet Count 388 X10*3/uL (160-400); Red Blood Count 2.95 X10*6/uL (4.60-5.80); Red Cell Distribution Width 14.4 % (11.0-16.0); White Blood Count 7.7 X10*3/uL (4.8-10.8)
[2023-11-27 09:26] LABS: Vancomycin Random 15.1 mcg/mL (15-20)
[2023-11-27 09:27] LABS: Albumin Level 2.6 g/dL (3.5-5.0); Anion Gap 11 (12-20); Blood Urea Nitrogen 14 mg/dL (9-16); Calcium 8.6 mg/dL (8.4-10.2); Carbon Dioxide 24 mmol/L (22-29); Chloride 111 mmol/L (96-108); Creatinine Clr Calc Pharmacy 77.5; Estimated Glomerular Filt Rate > 60; Glucose Random 153 mg/dL (60-115); Magnesium 2.3 mg/dL (1.6-2.6); Phosphorus 4.2 mg/dL (2.7-4.5); Potassium 3.7 mmol/L (3.3-5.1); Sodium 142 mmol/L (135-145); Triglycerides 113 mg/dL (<150)
--- NOTE | 2023-11-27 09:46 | PM.PNGS ---
Subjective Subjective Date of Service: 11/27/23 Interval history: as per nursing staff - refusing oral meds says he is ok but weak oral intake remains very marginal Physical Exam Vital Signs: Vital Signs: Last Vital Signs Temp 97.8 F 11/27/23 07:47 Pulse 94 11/27/23 07:47 Resp 20 11/27/23 07:47 BP 184/84 H 11/27/23 07:47 Pulse Ox 98 11/27/23 07:47 O2 Del Method Nasal Cannula 11/27/23 07:47 O2 Flow Rate 2 11/27/23 07:47 Oxygen Flow Rate 2 11/25/23 15:00 BMI result Body Mass Index 33.4 Const: Other: still with some SOB, exertional dyspnea Resp: Other: some SOB Cardio: Rate: regular rate GI: Other: drains - dark old blood, not a lot Palpation (GI): Soft to palpation, not firm and no guarding Objective Data Active Medications Acetaminophen (Acetaminophen 325 Mg Tablet) 650 mg PO Q6H PRN PRN Reason: Pain, Mild (Pain Scale 1-3) Last Admin: 11/25/23 12:41 Dose: 650 mg Acetaminophen (Acetaminophen 325 Mg Tablet) 975 mg PO Q6H PRN PRN Reason: headache Last Admin: 11/24/23 23:21 Dose: 975 mg Documented By: PARTH Amlodipine Besylate (Amlodipine Besylate 5 Mg Tablet) 5 mg PO BEDTIME REPLACED BY [facility]; Protocol Last Admin: 11/26/23 20:49 Dose: 5 mg Documented By: PASTOR Amlodipine Besylate (Amlodipine Besylate 5 Mg Tablet) 5 mg PO DAILY REPLACED BY [facility]; Protocol Last Admin: 11/26/23 08:35 Dose: 5 mg Docusate Sodium (Docusate Sodium 100 Mg Capsule) 100 mg PO BID REPLACED BY [facility] Last Admin: 11/26/23 20:58 Dose: 100 mg Doxazosin Mesylate (Doxazosin Mesylate 2 Mg Tablet) 4 mg PO BEDTIME REPLACED BY [facility]; Protocol Last Admin: 11/26/23 20:49 Dose: 4 mg Documented By: PASTOR Finasteride (Finasteride 5 Mg Tablet) 5 mg PO DAILY REPLACED BY [facility] Last Admin: 11/26/23 08:35 Dose: 5 mg Heparin Sodium (Porcine) (Heparin Sodium,Porcine 5,000 Unit/Ml Vial) 5,000 unit SUBCUT Q12H [facility] Last Admin: 11/27/23 05:53 Dose: 5,000 unit Documented By: PASTOR Piperacillin Sod/Tazobactam (Sod 3.375 gm/ Sodium Chloride) 50 mls @ 100 mls/hr IV Q6H REPLACED BY [facility] Last Admin: 11/27/23 07:41 Dose: 100 mls/hr Documented By: GISEL-RIVLA Nutrition (Parenteral) (Parenteral Nutrition) 1,200 mls @ 50 mls/hr IV .Q24H REPLACED BY [facility]; Protocol Stop: 11/27/23 20:59 Last Admin: 11/26/23 20:35 Dose: 50 mls/hr Documented By: PASTOR Vancomycin HCl 1,250 mg/ (Sodium Chloride) 250 mls @ 166.667 mls/hr IV Q12H REPLACED BY [facility] Last Infusion: 11/27/23 02:16 Dose: Infused Documented By: PASTOR Losartan Potassium (Losartan Potassium 50 Mg Tablet) 100 mg PO BEDTIME REPLACED BY [facility]; Protocol Last Admin: 11/26/23 20:49 Dose: 100 mg Documented By: PASTOR Metoclopramide HCl (Metoclopramide Hcl 10 Mg/2 Ml Vial) 5 mg IVPUSH Q6H PRN PRN Reason: Nausea and Vomiting Metoprolol Tartrate (Metoprolol Tartrate 25 Mg Tablet) 25 mg PO BID REPLACED BY [facility]; Protocol Last Admin: 11/26/23 20:49 Dose: 25 mg Omeprazole (Omeprazole 20 Mg Capsule.Dr) 20 mg PO BID@0630,1630 REPLACED BY [facility] Last Admin: 11/27/23 05:49 Dose: 20 mg Documented By: PASTOR Ondansetron HCl (Ondansetron Hcl 4 Mg/2 Ml Vial) 4 mg IVPUSH Q8H PRN PRN Reason: nausea Last Admin: 11/22/23 00:36 Dose: 4 mg Documented By: JONY Oxycodone HCl (Oxycodone Hcl Immed Release 5 Mg Tablet) 10 mg PO Q4H PRN PRN Reason: Pain, Moderate(Pain Scale 4-6) Last Admin: 11/26/23 21:11 Dose: 10 mg Documented By: PASTOR Pharmacy Consult (Consult Rx Vancomycin Dosing) 1 each MISCELLANE DAILY PRN PRN Reason: Consult order Pharmacy Consult (Consult Rx Parenteral Nutrition Ordering) 1 each MISCELLANE DAILY PRN PRN Reason: Consult order Sodium Chloride (0.9 % Sodium Chloride Flush 3 Ml Syringe) 3 ml IVFLUSH [facility] Last Admin: 11/27/23 07:40 Dose: 3 ml Documented By: ZONIA Labs 11/28/23 05:30 11/28/23 05:30 Labs: Laboratory Results - last 24 hr 11/26/23 11/26/23 11/27/23 18:12 20:59 09:03 MCV 93.2 MCH 31.2 MCHC 33.5 RDW 14.4 Plt Count 388 MPV 9.1 L Absolute Nucleated RBC 0.000 Nucleated RBC % (auto) 0.0 Fibrinogen > 700 H Anion Gap 11 L Estim Creat Clear Calc 77.5 Estimated GFR > 60 Random Glucose 153 H Calcium 8.6 Phosphorus 4.2 Magnesium 2.3 Albumin 2.6 L Triglycerides 113 Random Vancomycin 17.4 15.1 Microbiology Microbiology Results: Microbiology 11/24/23 11:45 Gram Stain - Final Abscess Intra-abdominal Routine Culture - Final Enterococcus faecalis Anaerobic Culture - Preliminary Culture in progress. Procedures Date of Service Date of Service: 11/28/23 Progress Note: A&P Assessment and plan (1) Postoperative anemia due to acute blood loss: Status: Acute Assessment and Plan: has DVT, with PE on Ct angio not a candidate for full anticoag at this time IVC filter in place on subq heparin still with poor oral intake on PPN labs ok Hg holding poor exercise - try to get OoB to recliner, bedside exercises Time Spent With Patient Time: Total time managing care of this patient today ____ minutes. Quality Stroke Does the patient have a stroke diagnosis?: No VTE Prior VTE?: No VTE Risk Level:: Medical - moderate - high VTE Device Contraindication: N/A - Device Ordered VTE Drug Contraindication: Treatment Not Indicated (Contraindicated in view of possible bleeding)
--- NOTE | 2023-11-27 13:00 | P.PNIM_ITS ---
Subjective Subjective Date of Service: 11/27/23 Interval History: f/ u bacteremia, infected hematoma, now with bilateral DVT of legs and bilateral PE, s/p IVC filter 11/26, started on sub cut heparin 11/24, partial TPN also started yesterday. He says he feels better today than yesterday, no chest pain, and no sob, good oxygen saturation on 2 liters. H/H is fairly stable Physical Exam 2 Vital Signs: Vital Signs: Last Vital Signs Temp 97.7 F 11/27/23 11:19 Pulse 105 H 11/27/23 11:19 Resp 20 11/27/23 11:19 BP 165/70 H 11/27/23 11:19 Pulse Ox 96 11/27/23 11:19 O2 Del Method Nasal Cannula 11/27/23 11:19 O2 Flow Rate 2 11/27/23 11:19 Oxygen Flow Rate 2 11/25/23 15:00 BMI result Body Mass Index 33.4 Gen: Not in acute distress, alert and oriented Lungs: clear to auscultation bilaterally Heart: regular rate and rhythm, no murmurs Abd: soft, some tenderness, non-distended, Ext: no edema, subtle swelling of both legs, no calv tenderness : increased scrotal edema Skin: warm/well-perfused right sided drains with dark blood Neuro: alert and oriented x3, no focal findings Psych: appropriate affect Const: Other: t Objective Data Active Medications Acetaminophen (Acetaminophen 325 Mg Tablet) 650 mg PO Q6H PRN PRN Reason: Pain, Mild (Pain Scale 1-3) Last Admin: 11/25/23 12:41 Dose: 650 mg Acetaminophen (Acetaminophen 325 Mg Tablet) 975 mg PO Q6H PRN PRN Reason: headache Last Admin: 11/24/23 23:21 Dose: 975 mg Documented By: PARTH Amlodipine Besylate (Amlodipine Besylate 5 Mg Tablet) 5 mg PO BEDTIME [facility]; Protocol Last Admin: 11/26/23 20:49 Dose: 5 mg Documented By: PASTOR Amlodipine Besylate (Amlodipine Besylate 5 Mg Tablet) 5 mg PO DAILY [facility]; Protocol Last Admin: 11/26/23 08:35 Dose: 5 mg Docusate Sodium (Docusate Sodium 100 Mg Capsule) 100 mg PO BID [facility] Last Admin: 01/19/24 20:58 Dose: 100 mg Doxazosin Mesylate (Doxazosin Mesylate 2 Mg Tablet) 4 mg PO BEDTIME [facility]; Protocol Last Admin: 11/26/23 20:49 Dose: 4 mg Documented By: PASTOR Finasteride (Finasteride 5 Mg Tablet) 5 mg PO DAILY [facility] Last Admin: 11/26/23 08:35 Dose: 5 mg Heparin Sodium (Porcine) (Heparin Sodium,Porcine 5,000 Unit/Ml Vial) 5,000 unit SUBCUT Q12H [facility] Last Admin: 11/27/23 05:53 Dose: 5,000 unit Documented By: PASTOR Piperacillin Sod/Tazobactam (Sod 3.375 gm/ Sodium Chloride) 50 mls @ 100 mls/hr IV Q6H [facility] Last Infusion: 11/27/23 10:06 Dose: Infused Documented By: ZONIA Nutrition (Parenteral) (Parenteral Nutrition) 1,200 mls @ 50 mls/hr IV .Q24H [facility]; Protocol Stop: 11/27/23 20:59 Last Admin: 11/26/23 20:35 Dose: 50 mls/hr Documented By: PASTOR Vancomycin HCl 1,250 mg/ (Sodium Chloride) 250 mls @ 166.667 mls/hr IV Q12H [facility] Last Admin: 11/27/23 10:37 Dose: 166.67 mls/hr Documented By: ZONIA Nutrition (Parenteral) (Parenteral Nutrition) 1,680 mls @ 70 mls/hr IV .Q24H [facility]; Protocol Stop: 11/28/23 20:59 Losartan Potassium (Losartan Potassium 50 Mg Tablet) 100 mg PO BEDTIME [facility]; Protocol Last Admin: 11/26/23 20:49 Dose: 100 mg Documented By: PASTOR Metoclopramide HCl (Metoclopramide Hcl 10 Mg/2 Ml Vial) 5 mg IVPUSH Q6H PRN PRN Reason: Nausea and Vomiting Metoprolol Tartrate (Metoprolol Tartrate 25 Mg Tablet) 25 mg PO BID [facility]; Protocol Last Admin: 11/26/23 20:49 Dose: 25 mg Omeprazole (Omeprazole 20 Mg Capsule.Dr) 20 mg PO BID@0630,1630 [facility] Last Admin: 11/27/23 05:49 Dose: 20 mg Documented By: PASTOR Ondansetron HCl (Ondansetron Hcl 4 Mg/2 Ml Vial) 4 mg IVPUSH Q8H PRN PRN Reason: nausea Last Admin: 11/22/23 00:36 Dose: 4 mg Documented By: JONY Oxycodone HCl (Oxycodone Hcl Immed Release 5 Mg Tablet) 10 mg PO Q4H PRN PRN Reason: Pain, Moderate(Pain Scale 4-6) Last Admin: 11/26/23 21:11 Dose: 10 mg Documented By: PASTOR Pharmacy Consult (Consult Rx Vancomycin Dosing) 1 each MISCELLANE DAILY PRN PRN Reason: Consult order Pharmacy Consult (Consult Rx Parenteral Nutrition Ordering) 1 each MISCELLANE DAILY PRN PRN Reason: Consult order Sodium Chloride (0.9 % Sodium Chloride Flush 3 Ml Syringe) 3 ml IVFLUSH QSHIFT [facility] Last Admin: 11/27/23 10:36 Dose: 3 ml Documented By: ZONIA Labs 11/27/23 09:03 11/27/23 09:03 Labs: Laboratory Results - last 24 hr 11/26/23 11/26/23 11/27/23 18:12 20:59 09:03 MCV 93.2 MCH 31.2 MCHC 33.5 RDW 14.4 Plt Count 388 MPV 9.1 L Absolute Nucleated RBC 0.000 Nucleated RBC % (auto) 0.0 Fibrinogen > 700 H Anion Gap 11 L Estim Creat Clear Calc 77.5 Estimated GFR > 60 Random Glucose 153 H Calcium 8.6 Phosphorus 4.2 Magnesium 2.3 Albumin 2.6 L Triglycerides 113 Random Vancomycin 17.4 15.1 Microbiology Microbiology Results: Microbiology 11/24/23 11:45 Gram Stain - Final Abscess Intra-abdominal Routine Culture - Final Enterococcus faecalis Anaerobic Culture - Preliminary Culture in progress. Assessment and Plan (1) Hematoma: Status: Acute (2) Aspiration pneumonia: Status: Acute (3) Acute blood loss anemia: Status: Acute Plan 73yo M with HTN, HLD, GERD, CAD s/p LEELA to RCA 2007 admitted to [facility] Surg for lap roosevelt done 11/10/23, returned to OR 11/11 for control of bleeder near cystic duct stump/hematoma evacuation/DONATO drain had syncopal episode likely due to vasovagal syndrome + acute blood loss anemia. 11/13 Aspiration PNA, 11/15 went into AFIB with RVR, converted after IV metoprolol and IV cardizem and remains in sinus since, 11/22 fever 101 Blood cultures + Parabacteroides distasonis. 11/24 Abscess drainage --E. Faecalis; 11/24 Urinary retention Croft, 11/25/23 Bilateral DVT of LE, IVC filter on11/26; 11/26 Bilateral PE sartedon Sub Cut Heparin d/t, 11/26 Partinal TPN d/t malnutrition Parabacteroides distasonis bacteremia 2/ from 11/23 Enteroccus Faecalis in abscess drain -Continue Zosyn started 11/22, Vanco started 11/24 -Echo pending, ID to determine lenght of treatment Bilateral LE DVTs and tyron P/E d/t imobility and unable to anticoagulate-remains at high risk for bleeding s/p IVC filter 11/26, Sub Hep started on 11/26, so far no bleeding complication, will adjust dose to q8 if remains stable without bleeding issues. Seen by hematology with ultimate goal of full anticoagulation in the future if no bleeding issues New urinary retention 11/24 likely from BPH -Croft, uro consult--> Doxazosin cholelithiasis-- - s/p lap roosevelt 11/10, complicated by hematoma , management per surgery paroxysmal AF - transient, due to postoperative state, AC not indicated, has not recurred - continue metoprolol tartrate 25 mg bid acute blood loss anemia - transfused 1u plts, 2u FFP, 6u pRBCs (total) - H+H stable last 2 days aspiration PNA - amp-sul 11/13-11/16, amox-clav 11/16-11/18. dependent pleural effusions - due to postop fluid shifts, encourage IS vasovagal syncope - resolved prerenal GUTIERREZ - resolved after transfusion + fluid resuscitation HTN - continue metoprolol tartrate, amlodipine, losartan CAD - ASA held for surgery, continue metoprolol GERD - PPI Fluid overload/scrotal edema--+ 14 liters, stop IVF, IV Lasix and monitor I/O, electrolytes VTE ppx - SCDs dispo - PT eval: STR suggested when acute issues resolved. Management being discussed with surgery on daily basis Total time managing care of this patient today: 35 minutes. Quality Stroke Does the patient have a stroke diagnosis?: No VTE Prior VTE?: No VTE Risk Level:: Medical - moderate - high VTE Device Contraindication: N/A - Device Ordered VTE Drug Contraindication: Treatment Not Indicated (Contraindicated in view of possible bleeding)
[2023-11-27] MEDS: Furosemide 40 MG/4 ML VIAL IVPUSH ×2 (13:02→21:34)
[2023-11-27] MEDS: Acetaminophen 325 MG TABLET 650 MG PO (13:02)
[2023-11-27] MEDS: amLODIPine Besylate 5 MG TABLET PO ×2 (13:02→21:33)
[2023-11-27] MEDS: Finasteride 5 MG TABLET PO (13:02)
[2023-11-27] MEDS: Docusate Sodium 100 MG CAPSULE PO ×2 (13:02→21:33)
[2023-11-27] MEDS: Metoprolol Tartrate 25 MG TABLET PO ×2 (13:02→21:33)
--- NOTE | 2023-11-27 16:34 | PM.EVENT ---
Event Note Date of Service: 11/28/23 Event Note: had been on recliner for a long period of time able to walk a short distance appears more comfortable abd soft drains with scanty old blood overall, he had a good day today needs work with oral intake exercising his legs at bedside dw Time Spent With Patient Time: Total time managing care of this patient today ____ minutes.
[2023-11-27] MEDS: ondansetron HCL 4 MG/2 ML VIAL IVPUSH (16:47)
[2023-11-27 17:07] LABS: Hematocrit 28.7 % (42.0-52.0); Hemoglobin 9.6 g/dl (14.0-18.0); Mean Corpuscular HGB Conc 33.4 g/dl (31.0-36.0); Mean Corpuscular Volume 92.6 fL (80.0-98.0); Mean Platelet Volume 8.8 fL (9.4-12.4); Platelet Count 380 X10*3/uL (160-400); Red Cell Distribution Width 14.4 % (11.0-16.0); White Blood Count 8.8 X10*3/uL (4.8-10.8)
[2023-11-27] MEDS: Parenteral Nutrition 1,680 ML 70 ML IV (21:29)
[2023-11-27] MEDS: Losartan Potassium 50 MG TABLET 100 MG PO (21:33)
[2023-11-27] MEDS: Doxazosin Mesylate 2 MG TABLET 4 MG PO (21:46)
[2023-11-28] VITALS (7 sets, daily range): BP systolic 133–158; BP diastolic 60–95; PULSE 77–89; RESP 17–18; TEMP 36.4–37.1; O2SAT 90–98
[2023-11-28] MEDS: Piperacillin Sodium/Tazobactam 3.375 GM in 0.9 % Sodium Chloride 50 ML IV ×4 (01:39→18:15)
[2023-11-28 05:59] LABS: Hematocrit 28.5 % (42.0-52.0); Hemoglobin 9.4 g/dl (14.0-18.0); Mean Corpuscular Volume 94.1 fL (80.0-98.0); Mean Platelet Volume 9.4 fL (9.4-12.4); Platelet Count 379 X10*3/uL (160-400); Red Blood Count 3.03 X10*6/uL (4.60-5.80); Red Cell Distribution Width 14.4 % (11.0-16.0)
[2023-11-28 06:15] LABS: Albumin Level 2.9 g/dL (3.5-5.0); Anion Gap 15 (12-20); Blood Urea Nitrogen 19 mg/dL (9-16); Carbon Dioxide 25 mmol/L (22-29); Chloride 105 mmol/L (96-108); Creatinine Clr Calc Pharmacy 68.5; Estimated Glomerular Filt Rate > 60; Glucose Random 142 mg/dL (60-115); Magnesium 2.1 mg/dL (1.6-2.6); Phosphorus 5.1 mg/dL (2.7-4.5); Potassium 3.5 mmol/L (3.3-5.1); Sodium 141 mmol/L (135-145)
[2023-11-28] MEDS: Heparin Sodium,Porcine 5,000 UNIT/ML VIAL 5000 UNIT SUBCUT ×2 (06:42→16:18)
[2023-11-28] MEDS: Omeprazole 20 MG CAPSULE.DR PO ×2 (06:43→16:18)
[2023-11-28] MEDS: ondansetron HCL 4 MG/2 ML VIAL IVPUSH (07:38)
[2023-11-28] MEDS: Acetaminophen 325 MG TABLET 650 MG PO ×3 (07:38→20:50)
[2023-11-28] MEDS: Finasteride 5 MG TABLET PO (07:38)
[2023-11-28] MEDS: Docusate Sodium 100 MG CAPSULE PO ×2 (07:39→20:48)
[2023-11-28] MEDS: Furosemide 40 MG/4 ML VIAL IVPUSH ×2 (07:39→20:48)
[2023-11-28] MEDS: Metoprolol Tartrate 25 MG TABLET PO ×2 (07:39→20:47)
[2023-11-28] MEDS: amLODIPine Besylate 5 MG TABLET PO ×2 (07:39→20:48)
[2023-11-28 09:10] LABS: Vancomycin Random 17.6 mcg/mL (15-20)
--- NOTE | 2023-11-28 10:30 | P.PNGS_ITS ---
Subjective Subjective Date of Service: 11/29/23 Interval history: OOB to recliner early today good oral intake last night off O2 has been more alert, mood improving Physical Exam 2 Vital Signs: Vital Signs: Last Vital Signs Temp 97.6 F 11/28/23 07:18 Pulse 84 11/28/23 07:18 Resp 17 11/28/23 07:18 BP 151/74 H 11/28/23 07:18 Pulse Ox 95 11/28/23 07:18 O2 Del Method Nasal Cannula 11/28/23 07:18 O2 Flow Rate 2 11/28/23 04:00 Oxygen Flow Rate 1.5 11/27/23 14:47 BMI result Body Mass Index 33.4 Const: Other: still with some exertional dyspnea General: comfortable Resp: Other: some exertional dyspnea Cardio: Rate: regular rate GI: Other: DONATO drains - old blood, scanty incision clean, laure removed Palpation (GI): Soft to palpation Objective Data Active Medications Acetaminophen (Acetaminophen 325 Mg Tablet) 650 mg PO Q6H PRN PRN Reason: Pain, Mild (Pain Scale 1-3) Last Admin: 11/28/23 07:38 Dose: 650 mg Documented By: ZONIA Acetaminophen (Acetaminophen 325 Mg Tablet) 975 mg PO Q6H PRN PRN Reason: headache Last Admin: 11/24/23 23:21 Dose: 975 mg Documented By: PARTH Amlodipine Besylate (Amlodipine Besylate 5 Mg Tablet) 5 mg PO BEDTIME [facility]; Protocol Last Admin: 11/27/23 21:33 Dose: 5 mg Documented By: PASTOR Amlodipine Besylate (Amlodipine Besylate 5 Mg Tablet) 5 mg PO DAILY [facility]; Protocol Last Admin: 11/28/23 07:39 Dose: 5 mg Documented By: ZONIA Docusate Sodium (Docusate Sodium 100 Mg Capsule) 100 mg PO BID [facility] Last Admin: 11/28/23 07:39 Dose: 100 mg Documented By: ZONIA Doxazosin Mesylate (Doxazosin Mesylate 2 Mg Tablet) 4 mg PO BEDTIME [facility]; Protocol Last Admin: 11/27/23 21:46 Dose: 4 mg Documented By: PASTOR Finasteride (Finasteride 5 Mg Tablet) 5 mg PO DAILY [facility] Last Admin: 11/28/23 07:38 Dose: 5 mg Documented By: ZONIA Furosemide (Furosemide 40 Mg/4 Ml Vial) 40 mg IVPUSH BID [facility]; Protocol Last Admin: 11/28/23 07:39 Dose: 40 mg Documented By: ZONIA Heparin Sodium (Porcine) (Heparin Sodium,Porcine 5,000 Unit/Ml Vial) 5,000 unit SUBCUT Q12H [facility] Last Admin: 11/28/23 06:42 Dose: 5,000 unit Documented By: PASTOR Piperacillin Sod/Tazobactam (Sod 3.375 gm/ Sodium Chloride) 50 mls @ 100 mls/hr IV Q6H [facility] Last Infusion: 11/28/23 07:14 Dose: Infused Documented By: ZONIA Vancomycin HCl 1,250 mg/ (Sodium Chloride) 250 mls @ 166.667 mls/hr IV Q12H [facility] Last Infusion: 11/28/23 01:14 Dose: Infused Documented By: PASTOR Nutrition (Parenteral) (Parenteral Nutrition) 1,680 mls @ 70 mls/hr IV .Q24H [facility]; Protocol Stop: 11/28/23 20:59 Last Admin: 11/27/23 21:29 Dose: 70 mls/hr Documented By: PASTOR Losartan Potassium (Losartan Potassium 50 Mg Tablet) 100 mg PO BEDTIME [facility]; Protocol Last Admin: 11/27/23 21:33 Dose: 100 mg Documented By: PASTOR Metoclopramide HCl (Metoclopramide Hcl 10 Mg/2 Ml Vial) 5 mg IVPUSH Q6H PRN PRN Reason: Nausea and Vomiting Metoprolol Tartrate (Metoprolol Tartrate 25 Mg Tablet) 25 mg PO BID [facility]; Protocol Last Admin: 11/28/23 07:39 Dose: 25 mg Documented By: ZONIA Omeprazole (Omeprazole 20 Mg Capsule.Dr) 20 mg PO BID@0630,1630 [facility] Last Admin: 11/28/23 06:43 Dose: 20 mg Documented By: PSATOR Ondansetron HCl (Ondansetron Hcl 4 Mg/2 Ml Vial) 4 mg IVPUSH Q8H PRN PRN Reason: nausea Last Admin: 11/28/23 07:38 Dose: 4 mg Documented By: ZONIA Oxycodone HCl (Oxycodone Hcl Immed Release 5 Mg Tablet) 5 mg PO Q6H PRN PRN Reason: Pain, Severe (Pain Scale 7-10) Pharmacy Consult (Consult Rx Vancomycin Dosing) 1 each MISCELLANE DAILY PRN PRN Reason: Consult order Pharmacy Consult (Consult Rx Parenteral Nutrition Ordering) 1 each MISCELLANE DAILY PRN PRN Reason: Consult order Polyethylene Glycol (Polyethylene Glycol 3350 17 Gm Powd.Pack) 17 gm PO ONCE ONE Stop: 11/28/23 10:30 Simethicone (Simethicone 80 Mg Tab.Chew) 80 mg PO QIDWMHS [facility] Sodium Chloride (0.9 % Sodium Chloride Flush 3 Ml Syringe) 3 ml IVFLUSH QSHIFT [facility] Last Admin: 11/28/23 07:39 Dose: 3 ml Documented By: ZONIA Labs 11/29/23 06:47 11/29/23 06:47 Labs: Laboratory Results - last 24 hr 11/27/23 11/28/23 11/28/23 17:01 05:30 08:49 MCV 92.6 94.1 MCH 31.0 31.0 MCHC 33.4 33.0 RDW 14.4 14.4 Plt Count 380 379 MPV 8.8 L 9.4 Absolute Nucleated RBC 0.000 0.000 Nucleated RBC % (auto) 0.0 0.0 Anion Gap 15 Estim Creat Clear Calc 68.5 Estimated GFR > 60 Random Glucose 142 H Calcium 9.0 Phosphorus 5.1 H Magnesium 2.1 Albumin 2.9 L Random Vancomycin 17.6 Microbiology Microbiology Results: Microbiology 11/26/23 13:45 Blood Culture - Preliminary Blood - Venous No growth after 24 hours. 11/26/23 13:45 Blood Culture - Preliminary Blood - Venous No growth after 24 hours. 11/24/23 11:45 Gram Stain - Final Abscess Intra-abdominal Routine Culture - Final Enterococcus faecalis Anaerobic Culture - Final Parabacteroides distasonis Bacteroides eggerthii Procedures Date of Service Date of Service: 11/29/23 Progress Note: A&P Assessment and plan (1) Postoperative anemia due to acute blood loss: Status: Acute Assessment and Plan: with PE and DVT IVF filter placed on subq heparin, not on full anticoag due to postop bleed Hg stable so far rest of labs good oral intake much improved since yesterday skin laure removed starting to show significant improvement push PO encouraged on moving, bedside exercises Miralax, Colace for constipation Charlene regularly updated Time Spent With Patient Time: Total time managing care of this patient today ____ minutes. Quality Stroke Does the patient have a stroke diagnosis?: No VTE Prior VTE?: No VTE Risk Level:: Medical - moderate - high VTE Device Contraindication: N/A - Device Ordered VTE Drug Contraindication: Treatment Not Indicated (Contraindicated in view of possible bleeding)
[2023-11-28] MEDS: vancomycin HCL 1,250 MG in 0.9 % Sodium Chloride 250 ML 166.67 MG IV ×2 (10:43→23:35)
[2023-11-28] MEDS: polyethylene glycoL 3350 17 GM POWD.PACK PO (10:45)
--- NOTE | 2023-11-28 12:02 | HO.PM.IMPN ---
Subjective Subjective Date of Service: 11/28/23 Interval History: Patient had a relatively good day yesterday. Ate about 75% of meal, ambulated in [place] with RN. Started on IV Lasix for fluid overallod with 14 liters positive with nearly 3L negative and H/H has stayed relatively unchanged and seem to to be tolerating sub cut heparin for further dvt prevention. Of O2 and doing ok on room air Physical Exam Vital Signs: Vital Signs: Last Vital Signs Temp 97.9 F 11/28/23 11:17 Pulse 86 11/28/23 11:17 Resp 18 11/28/23 11:17 BP 133/60 11/28/23 11:17 Pulse Ox 93 11/28/23 11:17 O2 Del Method Room Air 11/28/23 11:17 O2 Flow Rate 2 11/28/23 04:00 Oxygen Flow Rate 1.5 11/27/23 14:47 BMI result Body Mass Index 33.4 Gen: Not in acute distress, alert and oriented Lungs: diminisned, subtle rales at baseds Heart: regular rate and rhythm, no murmurs Abd: soft, some tenderness, non-distended, Ext: , subtle swelling of both legs, no calv tenderness : i noted scrotal edema, better Skin: warm/well-perfused right sided drains with dark blood Neuro: alert and oriented x3, no focal findings Psych: appropriate affect Const: Other: t Objective Data Active Medications Acetaminophen (Acetaminophen 325 Mg Tablet) 650 mg PO Q6H PRN PRN Reason: Pain, Mild (Pain Scale 1-3) Last Admin: 11/28/23 07:38 Dose: 650 mg Documented By: ZONIA Acetaminophen (Acetaminophen 325 Mg Tablet) 975 mg PO Q6H PRN PRN Reason: headache Last Admin: 11/24/23 23:21 Dose: 975 mg Documented By: PARTH Amlodipine Besylate (Amlodipine Besylate 5 Mg Tablet) 5 mg PO BEDTIME [facility]; Protocol Last Admin: 11/27/23 21:33 Dose: 5 mg Documented By: PASTOR Amlodipine Besylate (Amlodipine Besylate 5 Mg Tablet) 5 mg PO DAILY [facility]; Protocol Last Admin: 11/28/23 07:39 Dose: 5 mg Documented By: ZONIA Docusate Sodium (Docusate Sodium 100 Mg Capsule) 100 mg PO BID [facility] Last Admin: 11/28/23 07:39 Dose: 100 mg Documented By: ZONIA Doxazosin Mesylate (Doxazosin Mesylate 2 Mg Tablet) 4 mg PO BEDTIME [facility]; Protocol Last Admin: 11/27/23 21:46 Dose: 4 mg Documented By: PASTOR Finasteride (Finasteride 5 Mg Tablet) 5 mg PO DAILY [facility] Last Admin: 11/28/23 07:38 Dose: 5 mg Documented By: ZONIA Furosemide (Furosemide 40 Mg/4 Ml Vial) 40 mg IVPUSH BID [facility]; Protocol Last Admin: 11/28/23 07:39 Dose: 40 mg Documented By: ZONIA Heparin Sodium (Porcine) (Heparin Sodium,Porcine 5,000 Unit/Ml Vial) 5,000 unit SUBCUT Q12H [facility] Last Admin: 11/28/23 06:42 Dose: 5,000 unit Documented By: PASTOR Piperacillin Sod/Tazobactam (Sod 3.375 gm/ Sodium Chloride) 50 mls @ 100 mls/hr IV Q6H [facility] Last Infusion: 11/28/23 07:14 Dose: Infused Documented By: ZONIA Vancomycin HCl 1,250 mg/ (Sodium Chloride) 250 mls @ 166.667 mls/hr IV Q12H [facility] Last Admin: 11/28/23 10:43 Dose: 166.67 mls/hr Documented By: ZONIA Nutrition (Parenteral) (Parenteral Nutrition) 1,680 mls @ 70 mls/hr IV .Q24H [facility]; Protocol Stop: 11/28/23 20:59 Last Admin: 11/27/23 21:29 Dose: 70 mls/hr Documented By: PASTOR Nutrition (Parenteral) (Parenteral Nutrition) 2,160 mls @ 90 mls/hr IV .Q24H [facility]; Protocol Stop: 11/29/23 20:59 Losartan Potassium (Losartan Potassium 50 Mg Tablet) 100 mg PO BEDTIME [facility]; Protocol Last Admin: 11/27/23 21:33 Dose: 100 mg Documented By: PASTOR Metoclopramide HCl (Metoclopramide Hcl 10 Mg/2 Ml Vial) 5 mg IVPUSH Q6H PRN PRN Reason: Nausea and Vomiting Metoprolol Tartrate (Metoprolol Tartrate 25 Mg Tablet) 25 mg PO BID [facility]; Protocol Last Admin: 11/28/23 07:39 Dose: 25 mg Documented By: ZONIA Omeprazole (Omeprazole 20 Mg Capsule.) 20 mg PO BID@0630,1630 [facility] Last Admin: 11/28/23 06:43 Dose: 20 mg Documented By: PASTOR Ondansetron HCl (Ondansetron Hcl 4 Mg/2 Ml Vial) 4 mg IVPUSH Q8H PRN PRN Reason: nausea Last Admin: 11/28/23 07:38 Dose: 4 mg Documented By: ZONIA Oxycodone HCl (Oxycodone Hcl Immed Release 5 Mg Tablet) 5 mg PO Q6H PRN PRN Reason: Pain, Severe (Pain Scale 7-10) Pharmacy Consult (Consult Rx Vancomycin Dosing) 1 each MISCELLANE DAILY PRN PRN Reason: Consult order Pharmacy Consult (Consult Rx Parenteral Nutrition Ordering) 1 each MISCELLANE DAILY PRN PRN Reason: Consult order Simethicone (Simethicone 80 Mg Tab.Chew) 80 mg PO QIDWMHS [facility] Sodium Chloride (0.9 % Sodium Chloride Flush 3 Ml Syringe) 3 ml IVFLUSH QSHIFT [facility] Last Admin: 11/28/23 07:39 Dose: 3 ml Documented By: ZONIA Labs 11/28/23 05:30 11/28/23 05:30 Labs: Laboratory Results - last 24 hr 11/27/23 11/28/23 11/28/23 17:01 05:30 08:49 MCV 92.6 94.1 MCH 31.0 31.0 MCHC 33.4 33.0 RDW 14.4 14.4 Plt Count 380 379 MPV 8.8 L 9.4 Absolute Nucleated RBC 0.000 0.000 Nucleated RBC % (auto) 0.0 0.0 Anion Gap 15 Estim Creat Clear Calc 68.5 Estimated GFR > 60 Random Glucose 142 H Calcium 9.0 Phosphorus 5.1 H Magnesium 2.1 Albumin 2.9 L Random Vancomycin 17.6 Microbiology Microbiology Results: Microbiology 11/26/23 13:45 Blood Culture - Preliminary Blood - Venous No growth after 24 hours. 11/26/23 13:45 Blood Culture - Preliminary Blood - Venous No growth after 24 hours. 11/24/23 11:45 Gram Stain - Final Abscess Intra-abdominal Routine Culture - Final Enterococcus faecalis Anaerobic Culture - Final Parabacteroides distasonis Bacteroides eggerthii Assessment and Plan (1) Hematoma: Status: Acute (2) Aspiration pneumonia: Status: Acute (3) Acute blood loss anemia: Status: Acute Plan 73yo M with HTN, HLD, GERD, CAD s/p LEELA to RCA 2007 admitted to Gen Surg for lap roosevelt done 11/10/23, returned to OR 11/11 for control of bleeder near cystic duct stump/hematoma evacuation/DONATO drain had syncopal episode likely due to vasovagal syndrome + acute blood loss anemia. 11/13 Aspiration PNA, 11/15 went into AFIB with RVR, converted after IV metoprolol and IV cardizem and remains in sinus since, 11/22 fever 101 Blood cultures + Parabacteroides distasonis. 11/24 Abscess drainage --E. Faecalis; 11/24 Urinary retention Croft, 11/25/23 Bilateral DVT of LE, IVC filter on11/26; 11/26 Bilateral PE sartedon Sub Cut Heparin d/t, 11/26 PPN d/t malnutrition; IV Lasix 11/27 for total body fluid overload of 14 L Parabacteroides distasonis bacteremia 2/2 from 11/23 Enteroccus Faecalis in abscess drain -Continue Zosyn started 11/22, Vanco started 11/24 -Echo pending, ID to determine lenght of treatment -repeat cultures Bilateral LE DVTs and tyron P/E d/t imobility and unable to anticoagulate-remains at high risk for bleeding s/p IVC filter 11/26, Sub Hep started on 11/26, so far no bleeding complication, will adjust dose to q8 if remains stable without bleeding issue by tomorrow. Seen by hematology with ultimate goal of full anticoagulation in the future if no bleeding issues Urinary retention 11/24 likely from BPH -Croft, uro consult--> Doxazosin cholelithiasis-- - s/p lap roosevelt 11/10, complicated by hematoma , management per surgery paroxysmal AF - transient, due to postoperative state, AC not indicated, has not recurred - continue metoprolol tartrate 25 mg bid acute blood loss anemia - transfused 1u plts, 2u FFP, 6u pRBCs (total) - H+H stable last 3 days aspiration PNA - amp-sul 11/13-11/16, amox-clav 11/16-11/18. dependent pleural effusions - due to postop fluid shifts, encourage IS vasovagal syncope - resolved prerenal GUTIERREZ - resolved after transfusion + fluid resuscitation HTN - continue metoprolol tartrate, amlodipine, losartan CAD - ASA held for surgery, continue metoprolol GERD - PPI Fluid overload/scrotal edema--+ 14 liters, , IV Lasix and monitor I/O, electrolytes VTE ppx - SCDs dispo - PT eval: STR suggested when acute issues resolved. Management being discussed with surgery on daily basis Out of bed, ambulate with staft and or PT daily at least 3 times Total time managing care of this patient today: 35 minutes. Quality Stroke Does the patient have a stroke diagnosis?: No VTE Prior VTE?: No VTE Risk Level:: Medical - moderate - high VTE Device Contraindication: N/A - Device Ordered VTE Drug Contraindication: Treatment Not Indicated (Contraindicated in view of possible bleeding)
[2023-11-28] MEDS: Simethicone 80 MG TAB.CHEW PO ×3 (12:30→20:48)
--- NOTE | 2023-11-28 16:16 | PM.EVENT ---
Event Note Date of Service: 11/29/23 Event Note: able to do more today oral intake better had BM subjectively seems to be feeling better had pain on right shoulder after using walker abd soft plan to continue current care continue to push PO intake once PO intake appears adequate, will stop PPN subQ heparin TID Charlene updated pt benefitting from intensive nursing care Time Spent With Patient Time: Total time managing care of this patient today ____ minutes.
[2023-11-28] MEDS: Doxazosin Mesylate 2 MG TABLET 4 MG PO (20:48)
[2023-11-28] MEDS: Parenteral Nutrition 2,160 ML 90 ML IV (20:48)
[2023-11-28] MEDS: Losartan Potassium 50 MG TABLET 100 MG PO (20:48)
[2023-11-29] VITALS (7 sets, daily range): BP systolic 137–164; BP diastolic 65–74; PULSE 62–82; RESP 17–20; TEMP 36.4–36.7; O2SAT 92–95
[2023-11-29] MEDS: Piperacillin Sodium/Tazobactam 3.375 GM in 0.9 % Sodium Chloride 50 ML IV ×4 (01:35→21:16)
[2023-11-29] MEDS: Heparin Sodium,Porcine 5,000 UNIT/ML VIAL 5000 UNIT SUBCUT ×3 (05:58→21:17)
[2023-11-29] MEDS: Omeprazole 20 MG CAPSULE.DR PO ×2 (05:59→15:35)
[2023-11-29] MEDS: Acetaminophen 325 MG TABLET 650 MG PO (05:59)
--- NOTE | 2023-11-29 07:00 | CA_ITS ---
Transthoracic Echocardiogram Patient (Last, First, Middle): Darrick Ty E Gender: Male Date of : 1950 Age: 73 Procedure Date: 11/29/2023 Procedure Type: Transthoracic Echocardiogram Location: [facility] [place] Height: 167.64 cm Weight: 93.9 kg BSA: 2.03 m2 Heart Rate: bpm BP: 184 / 84 mmHg Systems Program Manager: Referring MD: Mark Wright MD Symptoms: PE, bacteremia Study Quality: Fair ECG Rhythm: Sinus Conclusions: - Normal left ventricular size, thickness, systolic function, and wall motion. The visually estimated ejection fraction is between 55-60%. - Normal right ventricular cavity size and systolic function. Findings Left Ventricle Normal left ventricular size, thickness, systolic function, and wall motion. The visually estimated ejection fraction is between 55-60%. Diastolic function is indeterminate on the basis of available data. Right Ventricle Normal right ventricular cavity size and systolic function. Aortic Valve Normal aortic valve structure and function. Mitral Valve The mitral valve appears normal. There is trace mitral valve regurgitation. Pulmonic Valve The pulmonic valve is likely normal. Tricuspid Valve The tricuspid valve was not well visualized. Great Vessels The visualized portions of the pulmonary artery and branches are normal. Venous The inferior vena cava was not well visualized. Pericardium/Pleural There is no evidence of pericardial effusion. Prior Study Comparison No significant change compared to prior study. Measurements 2D Linear Measurements IVSd: 1.24 0.6-0.9/0.6-1.0 cm LVIDd: 4.90 3.9-5.3/4.2-5.9 cm LVIDd Index: 2.41 2.4-3.2/2.2-3.1 cm/m2 LVIDs: 3.01 2.0-3.6 cm LVPWd: 1.27 0.7-1.1 cm LV Mass: 300.79 67-162/88-224 g LV Mass Index: 148.17 43-95/49-115 g/m2 Right Ventricle TAPSE (mm): 30.00 Tricuspid Valve TR Pk Luis F: 2.63 TR Pk Grad: 28.00 RA Press: 3.00 RVSP: 31.00 Updated in Other Vendor System with Status of Final Te Monzon MD electronically signed on 11/29/2023 6:01:10 PM with status of Final
[2023-11-29 07:05] LABS: Hematocrit 28.4 % (42.0-52.0); Hemoglobin 9.3 g/dl (14.0-18.0); Mean Corpuscular HGB Conc 32.7 g/dl (31.0-36.0); Mean Corpuscular Hemoglobin 30.9 pg (27.0-33.0); Mean Corpuscular Volume 94.4 fL (80.0-98.0); Mean Platelet Volume 9.3 fL (9.4-12.4); Platelet Count 384 X10*3/uL (160-400); Red Blood Count 3.01 X10*6/uL (4.60-5.80); Red Cell Distribution Width 14.1 % (11.0-16.0); White Blood Count 7.7 X10*3/uL (4.8-10.8)
[2023-11-29 07:25] LABS: Albumin Level 2.8 g/dL (3.5-5.0); Anion Gap 12 (12-20); Blood Urea Nitrogen 21 mg/dL (9-16); Carbon Dioxide 28 mmol/L (22-29); Chloride 101 mmol/L (96-108); Creatinine Clr Calc Pharmacy 60.3; Estimated Glomerular Filt Rate > 60; Glucose Random 138 mg/dL (60-115); Magnesium 2.1 mg/dL (1.6-2.6); Phosphorus 3.7 mg/dL (2.7-4.5); Potassium 3.4 mmol/L (3.3-5.1); Sodium 138 mmol/L (135-145)
--- NOTE | 2023-11-29 09:57 | P.PICC_ITS ---
PICC Line Insertion NPICC Diagnosis: Sepsis Indication: nursing home ABT use Pertinent Labs: reviewed Technique: Following informed consent including risks, benefits and alternatives and using sterile technique including cap and mask, sterile gown, glove and drape, the right arm was prepped and draped in the usual sterile fashion of full barrier technique with G. Following completion of [place] Protocol the skin and soft tissues were anesthetized with 1% Lidocaine plain. Using ultrasound guidance, brachial vein access was obtained. Over an 0.018 wire through peel- away sheath, a 4FR single lumen PASAV PowerPICC SOLO PICC line was positioned. Catheter length is 39cm internal length, 0 external length, for a total trimmed length of 39cm. The procedure was performed in [facility]. Tip verification was performed by Amy Pineda with Gonsalolock 3CG. Tip located in SVC. Ultrasound was used to document vein patency and for needle entry. A formal ultrasound picture and cardiac rhythm strip was recorded. [employer] [employer] has released the line for use and it is currently dressed with a StatLock, Tegaderm, and CHG disc. Verification has been performed for blood return and line patency. Arm Circumference: 29cm Equipment: PowerPICC SOLO catheter [id number] Catheter Type: 4FR single lumen PASV catheter Lot #: [id number]
--- NOTE | 2023-11-29 10:18 | MHC.CLN ---
RE: CONSULT PO INTAKE IMPROVING SLOWLY SPOKE WITH PT'S PT AT PROCEDURE DURING [facility] CONFIRMED PO INTAKE IMPROVING OVER WEEKEND PO FOLLOWS: 11/27: 25, 25, 75% 11/28: 50,75, 75 BM NOTED REPORTS PT RECEPTIVE TO EATING THRIVE ICE CREAM SUPPLEMENT PT RECEIVING ENSURE CLEAR HOWEVER PREFERS TO ONLY SIP FOOD PREFERENCES RECORDED AND SENT TO [facility] ON NEED FOR GOOD NUTRITION TO PROMOTE WOUND HEALING DISCUSSED ENCOURAGING FOODS WITH HIGH BIOLOGICAL VALUE PROTEIN PPN TO CONTINUE ONE MORE DAY DISCUSSED WITH PHARMACY RECOMMEND CONTINUE PPN AT MAX GOAL RATE 90ML/HR WITH 79G LIPIDS TO PROVIDE 1892TOTAL KCALS (25KCALS/KG), 216G DEXTROSE, 92G PROTEIN (1.2G/KG) REPLETE LYTES NEEDED IF PO INTAKE >/=50% EACH MEAL CAN D/C PPN 11/30
[2023-11-29] MEDS: vancomycin HCL 1,250 MG in 0.9 % Sodium Chloride 250 ML 166.67 MG IV (10:29)
[2023-11-29] MEDS: Docusate Sodium 100 MG CAPSULE PO ×2 (10:31→21:14)
[2023-11-29] MEDS: Finasteride 5 MG TABLET PO (10:31)
[2023-11-29] MEDS: Furosemide 40 MG/4 ML VIAL IVPUSH (10:31)
[2023-11-29] MEDS: Metoprolol Tartrate 25 MG TABLET PO ×2 (10:31→21:16)
[2023-11-29] MEDS: Simethicone 80 MG TAB.CHEW PO ×3 (10:31→21:16)
[2023-11-29] MEDS: amLODIPine Besylate 5 MG TABLET PO ×2 (10:31→21:16)
--- NOTE | 2023-11-29 10:38 | P.PNIM_ITS ---
Subjective Subjective Date of Service: 11/29/23 Interval History: Pt seen/examined, overnight events reviewed, no new issues, more awake, alert and more engating, vitals are Ok, off oxygen, no new bleeding issues, H/H is stable. A picc line was requested overnight for IV Abx, and PPN, pt was down early before but nurse told indicated to him that it was for assisted IV Abx as documented, I proceed to explain to the patient and to the about the indication, confirmed with surgeon, infectious disease Dr. and band ripsaw operator that it was ok, he and the were agreeable and IR pedroceed with the Picc line Physical Exam 2 Vital Signs: Vital Signs: Last Vital Signs Temp 97.8 F 11/29/23 07:09 Pulse 72 11/29/23 07:09 Resp 17 11/29/23 07:09 BP 147/67 H 11/29/23 07:09 Pulse Ox 94 11/29/23 07:09 O2 Del Method Room Air 11/29/23 07:09 O2 Flow Rate 2 11/28/23 04:00 Oxygen Flow Rate 1.5 11/27/23 14:47 BMI result Body Mass Index 33.4 Gen: Not in acute distress, alert and oriented CV RRR Neuro: alert and oriented x3, no focal findings Psych: appropriate affect Const: Other: t Objective Data Active Medications Acetaminophen (Acetaminophen 325 Mg Tablet) 650 mg PO Q6H PRN PRN Reason: Pain, Mild (Pain Scale 1-3) Last Admin: 11/29/23 05:59 Dose: 650 mg Documented By: ORESTES Acetaminophen (Acetaminophen 325 Mg Tablet) 975 mg PO Q6H PRN PRN Reason: headache Last Admin: 11/24/23 23:21 Dose: 975 mg Documented By: PARTH Amlodipine Besylate (Amlodipine Besylate 5 Mg Tablet) 5 mg PO BEDTIME [facility]; Protocol Last Admin: 11/28/23 20:48 Dose: 5 mg Documented By: ORESTES Amlodipine Besylate (Amlodipine Besylate 5 Mg Tablet) 5 mg PO DAILY [facility]; Protocol Last Admin: 11/29/23 10:31 Dose: 5 mg Documented By: JANET Docusate Sodium (Docusate Sodium 100 Mg Capsule) 100 mg PO BID [facility] Last Admin: 11/29/23 10:31 Dose: 100 mg Documented By: JANET Doxazosin Mesylate (Doxazosin Mesylate 2 Mg Tablet) 4 mg PO BEDTIME [facility]; Protocol Last Admin: 11/28/23 20:48 Dose: 4 mg Documented By: ORESTES Finasteride (Finasteride 5 Mg Tablet) 5 mg PO DAILY [facility] Last Admin: 11/29/23 10:31 Dose: 5 mg Documented By: JANET Furosemide (Furosemide 40 Mg/4 Ml Vial) 40 mg IVPUSH BID [facility]; Protocol Last Admin: 11/29/23 10:31 Dose: 40 mg Documented By: JANET Heparin Sodium (Porcine) (Heparin Sodium,Porcine 5,000 Unit/Ml Vial) 5,000 unit SUBCUT Q8H [facility] Heparin Sodium (Porcine) (Heparin Sodium,Porcine Flush 50 Units/5 Ml Syringe) 50 units IVFLUSH QSHIFT [facility] Piperacillin Sod/Tazobactam (Sod 3.375 gm/ Sodium Chloride) 50 mls @ 100 mls/hr IV Q6H [facility] Last Infusion: 11/29/23 07:05 Dose: Infused Documented By: JANET Vancomycin HCl 1,250 mg/ (Sodium Chloride) 250 mls @ 166.667 mls/hr IV Q12H [facility] Last Admin: 11/29/23 10:29 Dose: 166.67 mls/hr Documented By: JANET Nutrition (Parenteral) (Parenteral Nutrition) 2,160 mls @ 90 mls/hr IV .Q24H [facility]; Protocol Stop: 11/29/23 20:59 Last Admin: 11/28/23 20:48 Dose: 90 mls/hr Documented By: ORESTES Nutrition (Parenteral) (Parenteral Nutrition) 2,160 mls @ 90 mls/hr IV .Q24H [facility]; Protocol Stop: 11/30/23 20:59 Losartan Potassium (Losartan Potassium 50 Mg Tablet) 100 mg PO BEDTIME [facility]; Protocol Last Admin: 11/28/23 20:48 Dose: 100 mg Documented By: ORESTES Metoclopramide HCl (Metoclopramide Hcl 10 Mg/2 Ml Vial) 5 mg IVPUSH Q6H PRN PRN Reason: Nausea and Vomiting Metoprolol Tartrate (Metoprolol Tartrate 25 Mg Tablet) 25 mg PO BID [facility]; Protocol Last Admin: 11/29/23 10:31 Dose: 25 mg Documented By: JANET Omeprazole (Omeprazole 20 Mg Pamella.) 20 mg PO BID@0630,1630 [facility] Last Admin: 11/29/23 05:59 Dose: 20 mg Documented By: ORESTES Ondansetron HCl (Ondansetron Hcl 4 Mg/2 Ml Vial) 4 mg IVPUSH Q8H PRN PRN Reason: nausea Last Admin: 11/28/23 07:38 Dose: 4 mg Documented By: GISEL-RIVGARFIELD Oxycodone HCl (Oxycodone Hcl Immed Release 5 Mg Tablet) 5 mg PO Q6H PRN PRN Reason: Pain, Severe (Pain Scale 7-10) Pharmacy Consult (Consult Rx Vancomycin Dosing) 1 each MISCELLANE DAILY PRN PRN Reason: Consult order Pharmacy Consult (Consult Rx Parenteral Nutrition Ordering) 1 each MISCELLANE DAILY PRN PRN Reason: Consult order Simethicone (Simethicone 80 Mg Tab.Chew) 80 mg PO QIDWMHS [facility] Last Admin: 11/29/23 10:31 Dose: 80 mg Documented By: JANET Sodium Chloride (0.9 % Sodium Chloride Flush 3 Ml Syringe) 3 ml IVFLUSH QSHIFT [facility] Last Admin: 11/29/23 07:05 Dose: Not Given Documented By: JANET Non-Admin Reason: See Note Labs 11/29/23 06:47 11/29/23 06:47 Labs: Laboratory Results - last 24 hr 11/29/23 06:47 MCV 94.4 MCH 30.9 MCHC 32.7 RDW 14.1 Plt Count 384 MPV 9.3 L Absolute Nucleated RBC 0.000 Nucleated RBC % (auto) 0.0 Anion Gap 12 Estim Creat Clear Calc 60.3 Estimated GFR > 60 Random Glucose 138 H Calcium 9.0 Phosphorus 3.7 Magnesium 2.1 Albumin 2.8 L Microbiology Microbiology Results: Microbiology 11/26/23 13:45 Blood Culture - Preliminary Blood - Venous No growth after 48 hours. 11/26/23 13:45 Blood Culture - Preliminary Blood - Venous No growth after 48 hours. Assessment and Plan (1) Hematoma: Status: Acute (2) Aspiration pneumonia: Status: Acute (3) Acute blood loss anemia: Status: Acute Plan 73yo M with HTN, HLD, GERD, CAD s/p LEELA to RCA 2007 admitted to Gen Surg for lap roosevelt done 11/10/23, returned to OR 11/11 for control of bleeder near cystic duct stump/hematoma evacuation/DONATO drain had syncopal episode likely due to vasovagal syndrome + acute blood loss anemia. 11/13 Aspiration PNA, 11/15 went into AFIB with RVR, converted after IV metoprolol and IV cardizem and remains in sinus since, 11/22 fever 101 Blood cultures + Parabacteroides distasonis. 11/24 Abscess drainage --E. Faecalis; 11/24 Urinary retention Croft, 11/25/23 Bilateral DVT of LE, IVC filter on11/26; 11/26 Bilateral PE sartedon Sub Cut Heparin d/t, 11/26 PPN d/t malnutrition; IV Lasix 11/27 for total body fluid overload of 14 L. 11/29/23 PICC line inserted Parabacteroides distasonis bacteremia 2/2 from 11/23 Enteroccus Faecalis and Parabacteroides distasonis in abscess drain repeat culture 11/26 negative -Continue Zosyn started 11/22, Vanco started 11/24, Vanco being stopped per ID, Zosyn will cover both organisms -Echo pending, ID to determine lenght of treatment -repeat cultures -PICC line inserted 11/29/23 Bilateral LE DVTs and tyron P/E d/t imobility and unable to anticoagulate-remains at high risk for bleeding s/p IVC filter 11/26, Sub Hep started on 11/26, so far no bleeding complication, and H/H stable, will adjust dose to q8 today and continue to closely monitor. Seen by hematology: full anticoagulation in the future if h/h stable and no further bleeding complications. Urinary retention 11/24 likely from BPH -Croft, uro consult--> Doxazosin, ? Uro to determine when to do voiding trial cholelithiasis-- - s/p lap roosevelt 11/10, complicated by hematoma, s/p evacuation, drain. management per surgery paroxysmal AF--transient on 11/15, d/t post op state, no further episode, seen by card. No indication for anticoagulation. Metoprolol 25 bid (also for HTN) acute blood loss anemia--related hematoma above, - transfused 1u plts, 2u FFP, 6u pRBCs (total), last 2 units of 11/24, H/H stable. aspiration PNA - amp-sul 11/13-11/16, amox-clav 11/16-11/18. dependent pleural effusions - due to postop fluid shifts, encourage IS vasovagal syncope - resolved prerenal GUTIERREZ - resolved after transfusion + fluid resuscitation HTN - continue metoprolol tartrate, amlodipine, losartan CAD - ASA held for surgery, continue metoprolol GERD - PPI Fluid overload/scrotal edema--+ 14 liters, IV Lasix and monitor I/O, electrolytes, change to PO in am VTE ppx - SCDs dispo - PT eval: STR suggested when acute issues resolved. Management being discussed with surgery on daily basis Out of bed, ambulate with staft and or PT daily at least 3 times Total time managing care of this patient today: 35 minutes. Quality Stroke Does the patient have a stroke diagnosis?: No VTE Prior VTE?: No VTE Risk Level:: Medical - moderate - high VTE Device Contraindication: N/A - Device Ordered VTE Drug Contraindication: Treatment Not Indicated (Contraindicated in view of possible bleeding)
--- NOTE | 2023-11-29 11:12 | MHC.CM.PN ---
EMR reviewed and per MD rounds, pt is not medically cleared for D/C due to continued need for post-op care. CM will continue to follow.
--- NOTE | 2023-11-29 13:05 | P.PNGS_ITS ---
Subjective Subjective Date of Service: 11/30/23 Interval history: already up on recliner early this AM when seen oral intake steadily improving exercise tolerance improving Physical Exam 2 Vital Signs: Vital Signs: Last Vital Signs Temp 98 F 11/29/23 11:50 Pulse 62 11/29/23 11:50 Resp 18 11/29/23 11:50 BP 137/65 11/29/23 11:50 Pulse Ox 92 11/29/23 11:50 O2 Del Method Room Air 11/29/23 11:50 O2 Flow Rate 2 11/28/23 04:00 Oxygen Flow Rate 1.5 11/27/23 14:47 BMI result Body Mass Index 33.4 Const: General: comfortable and no acute distress Resp: Other: sone exertional dyspnea, but better Cardio: Rate: regular rate GI: Other: DONATO drains - old blood Palpation (GI): Soft to palpation, not firm and no guarding Objective Data Active Medications Acetaminophen (Acetaminophen 325 Mg Tablet) 650 mg PO Q6H PRN PRN Reason: Pain, Mild (Pain Scale 1-3) Last Admin: 11/29/23 05:59 Dose: 650 mg Documented By: ORESTES Acetaminophen (Acetaminophen 325 Mg Tablet) 975 mg PO Q6H PRN PRN Reason: headache Last Admin: 11/24/23 23:21 Dose: 975 mg Documented By: PARTH Amlodipine Besylate (Amlodipine Besylate 5 Mg Tablet) 5 mg PO BEDTIME [facility]; Protocol Last Admin: 11/28/23 20:48 Dose: 5 mg Documented By: ORESTES Amlodipine Besylate (Amlodipine Besylate 5 Mg Tablet) 5 mg PO DAILY [facility]; Protocol Last Admin: 11/29/23 10:31 Dose: 5 mg Documented By: JANET Docusate Sodium (Docusate Sodium 100 Mg Capsule) 100 mg PO BID [facility] Last Admin: 11/29/23 10:31 Dose: 100 mg Documented By: JANET Doxazosin Mesylate (Doxazosin Mesylate 2 Mg Tablet) 4 mg PO BEDTIME [facility]; Protocol Last Admin: 11/28/23 20:48 Dose: 4 mg Documented By: ORESTES Finasteride (Finasteride 5 Mg Tablet) 5 mg PO DAILY [facility] Last Admin: 11/29/23 10:31 Dose: 5 mg Documented By: JANET Furosemide (Furosemide 40 Mg/4 Ml Vial) 40 mg IVPUSH BID [facility]; Protocol Last Admin: 11/29/23 10:31 Dose: 40 mg Documented By: JANET Heparin Sodium (Porcine) (Heparin Sodium,Porcine 5,000 Unit/Ml Vial) 5,000 unit SUBCUT Q8H [facility] Heparin Sodium (Porcine) (Heparin Sodium,Porcine Flush 50 Units/5 Ml Syringe) 50 units IVFLUSH QSHIFT [facility] Piperacillin Sod/Tazobactam (Sod 3.375 gm/ Sodium Chloride) 50 mls @ 100 mls/hr IV Q6H [facility] Last Admin: 11/29/23 12:07 Dose: 100 mls/hr Documented By: JANET Vancomycin HCl 1,250 mg/ (Sodium Chloride) 250 mls @ 166.667 mls/hr IV Q12H [facility] Last Infusion: 11/29/23 12:09 Dose: Infused Documented By: JANET Nutrition (Parenteral) (Parenteral Nutrition) 2,160 mls @ 90 mls/hr IV .Q24H [facility]; Protocol Stop: 11/29/23 20:59 Last Admin: 11/28/23 20:48 Dose: 90 mls/hr Documented By: ORESTES Nutrition (Parenteral) (Parenteral Nutrition) 2,160 mls @ 90 mls/hr IV .Q24H [facility]; Protocol Stop: 11/30/23 20:59 Losartan Potassium (Losartan Potassium 50 Mg Tablet) 100 mg PO BEDTIME [facility]; Protocol Last Admin: 11/28/23 20:48 Dose: 100 mg Documented By: ORESTES Metoclopramide HCl (Metoclopramide Hcl 10 Mg/2 Ml Vial) 5 mg IVPUSH Q6H PRN PRN Reason: Nausea and Vomiting Metoprolol Tartrate (Metoprolol Tartrate 25 Mg Tablet) 25 mg PO BID [facility]; Protocol Last Admin: 11/29/23 10:31 Dose: 25 mg Documented By: JANET Omeprazole (Omeprazole 20 Mg Capsule.Dr) 20 mg PO BID@0630,1630 [facility] Last Admin: 11/29/23 05:59 Dose: 20 mg Documented By: ORESTES Ondansetron HCl (Ondansetron Hcl 4 Mg/2 Ml Vial) 4 mg IVPUSH Q8H PRN PRN Reason: nausea Last Admin: 11/28/23 07:38 Dose: 4 mg Documented By: ZONIA Oxycodone HCl (Oxycodone Hcl Immed Release 5 Mg Tablet) 5 mg PO Q6H PRN PRN Reason: Pain, Severe (Pain Scale 7-10) Pharmacy Consult (Consult Rx Parenteral Nutrition Ordering) 1 each MISCELLANE DAILY PRN PRN Reason: Consult order Simethicone (Simethicone 80 Mg Tab.Chew) 80 mg PO QIDWMHS [facility] Last Admin: 11/29/23 12:07 Dose: Not Given Documented By: JANET Non-Admin Reason: Patient Refused Sodium Chloride (0.9 % Sodium Chloride Flush 3 Ml Syringe) 3 ml IVFLUSH QSHIFT [facility] Last Admin: 11/29/23 12:25 Dose: Not Given Documented By: JANET Non-Admin Reason: See Note Labs 11/29/23 06:47 11/30/23 05:56 Labs: Laboratory Results - last 24 hr 11/29/23 06:47 MCV 94.4 MCH 30.9 MCHC 32.7 RDW 14.1 Plt Count 384 MPV 9.3 L Absolute Nucleated RBC 0.000 Nucleated RBC % (auto) 0.0 Anion Gap 12 Estim Creat Clear Calc 60.3 Estimated GFR > 60 Random Glucose 138 H Calcium 9.0 Phosphorus 3.7 Magnesium 2.1 Albumin 2.8 L Microbiology Microbiology Results: Microbiology 11/26/23 13:45 Blood Culture - Preliminary Blood - Venous No growth after 48 hours. 11/26/23 13:45 Blood Culture - Preliminary Blood - Venous No growth after 48 hours. Procedures Date of Service Date of Service: 11/30/23 Progress Note: A&P Assessment and plan (1) Postoperative anemia due to acute blood loss: Status: Acute Assessment and Plan: with DVT, PE had shown signfiicant improvement over the weekend oral intake better tolerating more activity Hg steady PICC line for abx - he had positive cultures last week, old hematoma also growing bacteria on CT drain nonseptic continue to push PO intake OOB if oral intake adequate, dc PPN Time Spent With Patient Time: Total time managing care of this patient today ____ minutes. Quality Stroke Does the patient have a stroke diagnosis?: No VTE Prior VTE?: No VTE Risk Level:: Medical - moderate - high VTE Device Contraindication: N/A - Device Ordered VTE Drug Contraindication: Treatment Not Indicated (Contraindicated in view of possible bleeding)
--- NOTE | 2023-11-29 13:16 | HO.WOUND ---
Wound Consult: Initial 73yr old?M admitted to [facility] [place] on 11/10/23 after elective surgery complications - See progress notes and H&P for detailed history.? Wound consult placed for buttocks and Groin.? Patient agreeable to assessment and photo documentation.? Arrival to bedside pt was eating lunch with assistance from his . Patient was agreeable to assessment - he denies pain or discomfort in the area. He stood with the assistance of a walker and his skin was assessed. The buttock is noted for MASD intergluteal. There is some evidence of fungal dermatitis - with advancing boarders and some satellite lesions noted. The bilateral inner thighs and scrotum are noted for MASD and Fungal dermatitis. The bilateral thighs are extremely moist with epidermal lifting noted due to moisture. The patient surprisingly denies pain and discomfort he reports he had chronic trauma to the area over the years with the required uniform for his job years ago and since does not have much feeling to the area - his confirms he frequently had wounds secondary to moisture and chaffing. Will recommend provider to order Antifungal powder and follow with Triad to protect from moisture and friction. Buttock and Groin. inner thighs and scrotum Etiology: ?MASD with fungal dermatitis Wound Bed: red pink blanchable tissue with epidermal lifting - not consistent with pressure Drainage / Odor: moist tissue no observable drainage Edges: ? advancing and satellite lesions noted Valerie wound: Intact ? No Induration, Fluctuance or Warmth noted Pain: denies Goals of Treatment: ?Topical antifungal cream applied twice daily followed by Triad to protect from moisture and friction Recommendations: 1. Turn and Reposition every 2 hours and as needed for patient comfort.? Use pillows or wedges to support off loading positions. - Waffle cushion currently in place. 2. Off Load all bony prominences with use of pillows and heel boots if needed.? Apply Preventative foams where needed. ? 3. Monitor for incontinence and moisture control, use barrier creams when needed for prevention and treatment. 4. Provide adequate and supplemental nutrition.? Nutrition orders in place. 5. Continue low air loss mattress. 6. Bilateral Inner Thigh, Scrotum, Groin and Buttocks - Cleanse with PH balance wipes, pat dry with soft cloth.? Apply antifungal power to assist with moisture management.? Be sure to dust of excess powder to prevent caking on skin and in folds. Apply per provider orders. Followed by a thin layer of Triad to affected area - only pat and dab no scrub and rub when soiling occurs. Reapply thin layer PRN after each episode of incontinence. Re-consult wound care Nurse for wound deterioration or wound changes.
[2023-11-29] MEDS: Acetaminophen 325 MG TABLET 975 MG PO ×2 (15:34→21:14)
--- NOTE | 2023-11-29 15:52 | P.PNID_ITS ---
Subjective Subjective Date of Service: 11/29/23 Critical Care Time (minutes): 15 Comment: He has no complaints. He has drains in and Croft catheter. Objective Data Labs 11/29/23 06:47 11/29/23 06:47 Labs: Laboratory Results - last 24 hr 11/29/23 06:47 WBC 7.7 RBC 3.01 L Hgb 9.3 L Hct 28.4 L MCV 94.4 MCH 30.9 MCHC 32.7 RDW 14.1 Plt Count 384 MPV 9.3 L Absolute Nucleated RBC 0.000 Nucleated RBC % (auto) 0.0 Sodium 138 Potassium 3.4 Chloride 101 Carbon Dioxide 28 Anion Gap 12 BUN 21 H Creatinine 1.17 Estim Creat Clear Calc 60.3 Estimated GFR > 60 Random Glucose 138 H Calcium 9.0 Phosphorus 3.7 Magnesium 2.1 Albumin 2.8 L Microbiology Microbiology Results: Microbiology 11/26/23 13:45 Blood - Venous Blood Culture - Preliminary No growth after 48 hours. 11/26/23 13:45 Blood - Venous Blood Culture - Preliminary No growth after 48 hours. 11/24/23 11:45 Abscess Intra-abdominal Gram Stain - Final 11/24/23 11:45 Abscess Intra-abdominal Routine Culture - Final Enterococcus faecalis 11/24/23 11:45 Abscess Intra-abdominal Anaerobic Culture - Final Parabacteroides distasonis Bacteroides eggerthii 11/22/23 00:23 Blood - Venous Blood Culture - Final Parabacteroides distasonis 11/22/23 00:23 Blood - Venous Blood Culture - Final Parabacteroides distasonis Physical Exam 2 Vital Signs: Vital Signs: Last Vital Signs Temp 98 F 11/29/23 11:50 Pulse 62 11/29/23 11:50 Resp 18 11/29/23 11:50 BP 137/65 11/29/23 11:50 Pulse Ox 92 11/29/23 11:50 O2 Del Method Room Air 11/29/23 15:00 O2 Flow Rate 2 11/28/23 04:00 Oxygen Flow Rate 1.5 11/27/23 14:47 BMI result Body Mass Index 33.4 Const: General: cooperative HEENT: Head: Yes normal to inspection Mouth: Normal oral and palatal mucosa present Resp: Effort & Inspection: normal respiratory effort Cardio: Rhythm: regular rhythm GI: Other: abdominal drains,no cellulitis some fungal irritation groin area Inspection: Yes normal to inspection Assessment and Plan Assessment and plan (1) Liver abscess: Problem details: There is concern over parabacteroides and enterococcus faecalis Status: Acute Plan 2-3 weeks IV Zosyn Check CT abdomena and pelvis again possibly. Time Spent With Patient Time: Total time managing care of this patient today ____ minutes.
--- NOTE | 2023-11-29 16:40 | PM.EVENT ---
Event Note Date of Service: 11/30/23 Event Note: oral intake better underwent PICC line exercise toelrarnce better looks well continue current care pt steadily improving Charlene updated Time Spent With Patient Time: Total time managing care of this patient today ____ minutes.
[2023-11-29] MEDS: traMADoL HCL 50 MG TABLET PO (17:16)
[2023-11-29] MEDS: Doxazosin Mesylate 2 MG TABLET 4 MG PO (21:15)
[2023-11-29] MEDS: Losartan Potassium 50 MG TABLET 100 MG PO (21:15)
[2023-11-29] MEDS: Parenteral Nutrition 2,160 ML 90 ML IV (21:17)
[2023-11-29] MEDS: Nystatin Powder 15 GM BOTTLE 1 APPL TOPICAL (22:08)
[2023-11-30] MEDS: Piperacillin Sodium/Tazobactam 3.375 GM in 0.9 % Sodium Chloride 50 ML IV ×4 (02:52→20:30)
[2023-11-30 03:17] VITALS: BP 181/80; PULSE 81; RESP 18; TEMP 36.8; O2SAT 92
[2023-11-30 04:00] VITALS: BP 158/72
[2023-11-30] MEDS: Omeprazole 20 MG CAPSULE.DR PO ×2 (04:45→17:43)
[2023-11-30] MEDS: traMADoL HCL 50 MG TABLET PO ×3 (04:45→20:40)
[2023-11-30] MEDS: Heparin Sodium,Porcine 5,000 UNIT/ML VIAL 5000 UNIT SUBCUT ×3 (04:45→21:18)
[2023-11-30 06:38] LABS: Albumin Level 2.8 g/dL (3.5-5.0); Anion Gap 11 (12-20); Blood Urea Nitrogen 19 mg/dL (9-16); Calcium 8.9 mg/dL (8.4-10.2); Carbon Dioxide 28 mmol/L (22-29); Chloride 102 mmol/L (96-108); Creatinine Clr Calc Pharmacy 69.2; Estimated Glomerular Filt Rate > 60; Glucose Random 125 mg/dL (60-115); Magnesium 2.1 mg/dL (1.6-2.6); Phosphorus 3.4 mg/dL (2.7-4.5); Potassium 2.9 mmol/L (3.3-5.1); Sodium 138 mmol/L (135-145)
[2023-11-30 07:31] VITALS: BP 158/76; PULSE 77; RESP 18; TEMP 36.7; O2SAT 94
[2023-11-30] MEDS: Docusate Sodium 100 MG CAPSULE PO (09:29)
[2023-11-30] MEDS: Finasteride 5 MG TABLET PO (09:29)
[2023-11-30] MEDS: Simethicone 80 MG TAB.CHEW PO ×4 (09:29→20:31)
[2023-11-30] MEDS: Metoprolol Tartrate 25 MG TABLET PO ×2 (09:29→20:31)
[2023-11-30] MEDS: amLODIPine Besylate 5 MG TABLET PO ×2 (09:29→20:31)
[2023-11-30] MEDS: Potassium Chloride ER 20 MEQ TAB.ER.PRT 40 MEQ PO (09:29)
[2023-11-30] MEDS: Nystatin Powder 15 GM BOTTLE 1 APPL TOPICAL ×2 (09:41→20:36)
--- NOTE | 2023-11-30 10:20 | PM.PNGS ---
Subjective Subjective Date of Service: 12/01/23 Interval history: States he continues to feel better Oral intake much improved Exercise tolerance better Off oxygen supplement Physical Exam Vital Signs: Vital Signs: Last Vital Signs Temp 98.0 F 11/30/23 07:31 Pulse 77 11/30/23 07:31 Resp 18 11/30/23 07:31 BP 158/76 H 11/30/23 07:31 Pulse Ox 94 11/30/23 07:31 O2 Del Method Room Air 11/30/23 07:31 O2 Flow Rate 2 11/28/23 04:00 Oxygen Flow Rate 1.5 11/27/23 14:47 BMI result Body Mass Index 33.4 Const: Other: Sitting on recliner General: comfortable and no acute distress Resp: Other: Still has some exercise intolerance Cardio: Rate: regular rate GI: Other: Drains with all blood very scanty Palpation (GI): Soft to palpation, not firm and no guarding Objective Data Active Medications Acetaminophen (Acetaminophen 325 Mg Tablet) 650 mg PO Q6H PRN PRN Reason: Pain, Mild (Pain Scale 1-3) Last Admin: 11/29/23 05:59 Dose: 650 mg Documented By: ORESTES Acetaminophen (Acetaminophen 325 Mg Tablet) 975 mg PO Q6H PRN PRN Reason: headache Last Admin: 11/29/23 21:14 Dose: 975 mg Documented By: ORESTES Amlodipine Besylate (Amlodipine Besylate 5 Mg Tablet) 5 mg PO BEDTIME [facility]; Protocol Last Admin: 11/29/23 21:16 Dose: 5 mg Documented By: ORESTES Amlodipine Besylate (Amlodipine Besylate 5 Mg Tablet) 5 mg PO DAILY [facility]; Protocol Last Admin: 11/30/23 09:29 Dose: 5 mg Documented By: JANET Docusate Sodium (Docusate Sodium 100 Mg Capsule) 100 mg PO BID [facility] Last Admin: 11/30/23 09:29 Dose: 100 mg Documented By: JANET Doxazosin Mesylate (Doxazosin Mesylate 2 Mg Tablet) 4 mg PO BEDTIME [facility]; Protocol Last Admin: 11/29/23 21:15 Dose: 4 mg Documented By: ORESTES Finasteride (Finasteride 5 Mg Tablet) 5 mg PO DAILY [facility] Last Admin: 11/30/23 09:29 Dose: 5 mg Documented By: JANET Heparin Sodium (Porcine) (Heparin Sodium,Porcine 5,000 Unit/Ml Vial) 5,000 unit SUBCUT Q8H [facility] Last Admin: 11/30/23 04:45 Dose: 5,000 unit Documented By: ORESTES Heparin Sodium (Porcine) (Heparin Sodium,Porcine Flush 50 Units/5 Ml Syringe) 50 units IVFLUSH QSHIFT [facility] Last Admin: 11/30/23 07:09 Dose: Not Given Documented By: JANET Non-Admin Reason: IV Running Nutrition (Parenteral) (Parenteral Nutrition) 2,160 mls @ 90 mls/hr IV .Q24H [facility]; Protocol Stop: 11/30/23 20:59 Last Admin: 11/29/23 21:17 Dose: 90 mls/hr Documented By: ORESTES Piperacillin Sod/Tazobactam (Sod 3.375 gm/ Sodium Chloride) 50 mls @ 100 mls/hr IV Q6H [facility] Last Infusion: 11/30/23 09:59 Dose: Infused Documented By: JANET Losartan Potassium (Losartan Potassium 50 Mg Tablet) 100 mg PO BEDTIME [facility]; Protocol Last Admin: 11/29/23 21:15 Dose: 100 mg Documented By: ORESTES Metoclopramide HCl (Metoclopramide Hcl 10 Mg/2 Ml Vial) 5 mg IVPUSH Q6H PRN PRN Reason: Nausea and Vomiting Metoprolol Tartrate (Metoprolol Tartrate 25 Mg Tablet) 25 mg PO BID [facility]; Protocol Last Admin: 11/30/23 09:29 Dose: 25 mg Documented By: JANET Nystatin (Nystatin Powder 15 Gm Bottle) 1 appl TOPICAL BID [facility]; Protocol Last Admin: 11/30/23 09:41 Dose: 1 appl Documented By: AJNET Omeprazole (Omeprazole 20 Mg Capsule.) 20 mg PO BID@0630,1630 [facility] Last Admin: 11/30/23 04:45 Dose: 20 mg Documented By: ORESTES Ondansetron HCl (Ondansetron Hcl 4 Mg/2 Ml Vial) 4 mg IVPUSH Q8H PRN PRN Reason: nausea Last Admin: 11/28/23 07:38 Dose: 4 mg Documented By: ZONIA Oxycodone HCl (Oxycodone Hcl Immed Release 5 Mg Tablet) 5 mg PO Q6H PRN PRN Reason: Pain, Severe (Pain Scale 7-10) Pharmacy Consult (Consult Rx Parenteral Nutrition Ordering) 1 each MISCELLANE DAILY PRN PRN Reason: Consult order Simethicone (Simethicone 80 Mg Tab.Chew) 80 mg PO QIDWMHS [facility] Last Admin: 11/30/23 09:29 Dose: 80 mg Documented By: JANET Sodium Chloride (0.9 % Sodium Chloride Flush 3 Ml Syringe) 3 ml IVFLUSH QSHIFT [facility] Last Admin: 11/30/23 07:09 Dose: Not Given Documented By: JANET Non-Admin Reason: See Note Tramadol HCl (Tramadol Hcl 50 Mg Tablet) 50 mg PO Q6H PRN PRN Reason: Pain, Moderate(Pain Scale 4-6) Last Admin: 11/30/23 04:45 Dose: 50 mg Documented By: ORESTES Labs 12/01/23 08:39 12/01/23 06:18 Labs: Laboratory Results - last 24 hr 11/29/23 11/30/23 18:19 05:56 Hold Purple Top SEE NOTE Anion Gap 11 L Estim Creat Clear Calc 69.2 Estimated GFR > 60 Random Glucose 125 H Calcium 8.9 Phosphorus 3.4 Magnesium 2.1 Albumin 2.8 L Vancomycin Trough 21.0 H Procedures Date of Service Date of Service: 12/01/23 Progress Note: A&P Assessment and plan (1) Postoperative anemia due to acute blood loss: Status: Acute Assessment and Plan: Developed PE and DVT Respiratory status much improved Oral intake much improved as well Will stop PPN after this back Continue pushing for ambulation, out of bed Looks well today Plan to DC drains soon Time Spent With Patient Time: Total time managing care of this patient today ____ minutes. Quality Stroke Does the patient have a stroke diagnosis?: No VTE Prior VTE?: No VTE Risk Level:: Medical - moderate - high VTE Device Contraindication: N/A - Device Ordered VTE Drug Contraindication: Treatment Not Indicated (Contraindicated in view of possible bleeding)
[2023-11-30 11:20] VITALS: BP 157/74; PULSE 67; RESP 18; TEMP 36.1; O2SAT 95
--- NOTE | 2023-11-30 11:43 | MHC.CLN ---
F/U PO INTAKE CONTINUES TO IMPROVE AVERAGING AROUND 50% SPOKE WITH PT TODAY WHO CONFIRMED HIS APPETITE IS BACK DISCUSSED WITH PHARMACY AND PROVIDER PLAN IS TO D/C CURRENT PPN WHEN THIS LAST HANGING BAG RUNS OUT STRICT PO INTAKE RECORDS
--- NOTE | 2023-11-30 12:02 | P.PNVS_ITS ---
Subjective Subjective Date of Service: 11/30/23 Patient reports: no new complaints and feels better Interval history: Patient seen and examined. Status post IVC filter for DVT. He appears to be doing significantly better. He reports that he actually has an appetite and is tolerating p.o. this morning. Was actually eating a bowl of cereal at the time of my visit. Now for routine follow-up. Physical Exam Vital Signs: Vital Signs: Last Vital Signs Temp 97.0 F 11/30/23 11:20 Pulse 67 11/30/23 11:20 Resp 18 11/30/23 11:20 BP 157/74 H 11/30/23 11:20 Pulse Ox 95 11/30/23 11:20 O2 Del Method Room Air 11/30/23 11:20 O2 Flow Rate 2 11/28/23 04:00 Oxygen Flow Rate 1.5 11/27/23 14:47 BMI result Body Mass Index 33.4 Const: General: cooperative, healthy appearing and no acute distress Orientation/consciousness: oriented to person, oriented to place and oriented to time HEENT: Head: Yes normal to inspection Neck: Carotids: no bruits Chest: Chest palpation & inspection: normal inspection of the chest Resp: Effort & Inspection: normal respiratory effort and able to speak in complete sentences Auscultation: clear to auscultation bilaterally Cardio: Rate: regular rate Heart sounds: S1 normal heart sound present and S2 normal heart sound present GI: Other: Abdominal binder intact Inspection: Yes normal to inspection Skin: Other: Right groin no hematoma General skin exam: no rashes or lesions noted Wounds: no wounds Neuro: General: oriented to person, oriented to place, oriented to time and CN's II-XI intact bilaterally Extrem: General: Yes normal to inspection, Yes full ROM and Yes no clubbing, cyanosis or edema Psych: Appearance: grossly normal and well kempt Speech and movement: Normal speech and movement present Affect: normal affect Progress Note: A&P Assessment and plan (1) DVT (deep venous thrombosis): Status: Acute Assessment and Plan: In short patient is doing well with IVC filter placement. Would recommend ambulation as much as tolerated. In addition as he is more ambulatory and functional may eventually need compression stockings. We will follow on an as- needed basis. Thank you for allowing us to assist in his care. Time Spent With Patient Time: Total time managing care of this patient today ____ minutes. Procedures Date of Service Date of Service: 11/30/23 Quality Stroke Does the patient have a stroke diagnosis?: No VTE Prior VTE?: No VTE Risk Level:: Medical - moderate - high VTE Device Contraindication: N/A - Device Ordered VTE Drug Contraindication: Treatment Not Indicated (Contraindicated in view of possible bleeding)
[2023-11-30 12:38] LABS: Potassium 3.1 mmol/L (3.3-5.1)
[2023-11-30 15:04] VITALS: BP 164/75; PULSE 85; RESP 18; TEMP 36.8; O2SAT 95
--- NOTE | 2023-11-30 15:04 | PM.EVENT ---
Event Note Date of Service: 12/01/23 Event Note: continues to do better PO intake continues to improve walking more looks more comfortable, and more alert continue current care stop PPN after current bag matthew Chang re Rehabn placement Time Spent With Patient Time: Total time managing care of this patient today ____ minutes.
--- NOTE | 2023-11-30 15:25 | P.PNIM_ITS ---
Subjective Subjective Date of Service: 11/30/23 Interval History: follow up Review of Systems denies any sob or nausea or abd pain no fever,eating better need to ambulate if possible Physical Exam 2 Vital Signs: Vital Signs: Last Vital Signs Temp 98.3 F 11/30/23 15:04 Pulse 85 11/30/23 15:04 Resp 18 11/30/23 15:04 BP 164/75 H 11/30/23 15:04 Pulse Ox 95 11/30/23 15:04 O2 Del Method Room Air 11/30/23 15:04 O2 Flow Rate 2 11/28/23 04:00 Oxygen Flow Rate 2 11/30/23 14:12 BMI result Body Mass Index 33.4 Gen: Not in acute distress, alert and oriented CV RRR,s1s2 heard. Neuro: alert and oriented x3, no focal findings Psych: appropriate affect Objective Data Active Medications Acetaminophen (Acetaminophen 325 Mg Tablet) 650 mg PO Q6H PRN PRN Reason: Pain, Mild (Pain Scale 1-3) Last Admin: 11/29/23 05:59 Dose: 650 mg Documented By: ORESTES Acetaminophen (Acetaminophen 325 Mg Tablet) 975 mg PO Q6H PRN PRN Reason: headache Last Admin: 11/29/23 21:14 Dose: 975 mg Documented By: ORESTES Amlodipine Besylate (Amlodipine Besylate 5 Mg Tablet) 5 mg PO BEDTIME [facility]; Protocol Last Admin: 11/29/23 21:16 Dose: 5 mg Documented By: ORESTES Amlodipine Besylate (Amlodipine Besylate 5 Mg Tablet) 5 mg PO DAILY [facility]; Protocol Last Admin: 11/30/23 09:29 Dose: 5 mg Documented By: JANET Docusate Sodium (Docusate Sodium 100 Mg Capsule) 100 mg PO BID [facility] Last Admin: 11/30/23 09:29 Dose: 100 mg Documented By: JANET Doxazosin Mesylate (Doxazosin Mesylate 2 Mg Tablet) 4 mg PO BEDTIME [facility]; Protocol Last Admin: 11/29/23 21:15 Dose: 4 mg Documented By: ORESTES Finasteride (Finasteride 5 Mg Tablet) 5 mg PO DAILY [facility] Last Admin: 11/30/23 09:29 Dose: 5 mg Documented By: JANET Heparin Sodium (Porcine) (Heparin Sodium,Porcine 5,000 Unit/Ml Vial) 5,000 unit SUBCUT Q8H [facility] Last Admin: 11/30/23 13:46 Dose: 5,000 unit Documented By: JANET Heparin Sodium (Porcine) (Heparin Sodium,Porcine Flush 50 Units/5 Ml Syringe) 50 units IVFLUSH QSHIFT [facility] Last Admin: 11/30/23 12:16 Dose: Not Given Documented By: JANET Non-Admin Reason: IV Running Nutrition (Parenteral) (Parenteral Nutrition) 2,160 mls @ 90 mls/hr IV .Q24H [facility]; Protocol Stop: 11/30/23 20:59 Last Admin: 11/29/23 21:17 Dose: 90 mls/hr Documented By: ORESTES Piperacillin Sod/Tazobactam (Sod 3.375 gm/ Sodium Chloride) 50 mls @ 100 mls/hr IV Q6H [facility] Last Infusion: 11/30/23 14:16 Dose: Infused Documented By: JANET Losartan Potassium (Losartan Potassium 50 Mg Tablet) 100 mg PO BEDTIME [facility]; Protocol Last Admin: 11/29/23 21:15 Dose: 100 mg Documented By: ORESTES Metoclopramide HCl (Metoclopramide Hcl 10 Mg/2 Ml Vial) 5 mg IVPUSH Q6H PRN PRN Reason: Nausea and Vomiting Metoprolol Tartrate (Metoprolol Tartrate 25 Mg Tablet) 25 mg PO BID [facility]; Protocol Last Admin: 11/30/23 09:29 Dose: 25 mg Documented By: JANET Nystatin (Nystatin Powder 15 Gm Bottle) 1 appl TOPICAL BID [facility]; Protocol Last Admin: 11/30/23 09:41 Dose: 1 appl Documented By: JANET Omeprazole (Omeprazole 20 Mg Capsule.Dr) 20 mg PO BID@0630,1630 [facility] Last Admin: 11/30/23 04:45 Dose: 20 mg Documented By: ORESTES Ondansetron HCl (Ondansetron Hcl 4 Mg/2 Ml Vial) 4 mg IVPUSH Q8H PRN PRN Reason: nausea Last Admin: 11/28/23 07:38 Dose: 4 mg Documented By: ZONIA Oxycodone HCl (Oxycodone Hcl Immed Release 5 Mg Tablet) 5 mg PO Q6H PRN PRN Reason: Pain, Severe (Pain Scale 7-10) Pharmacy Consult (Consult Rx Parenteral Nutrition Ordering) 1 each MISCELLANE DAILY PRN PRN Reason: Consult order Simethicone (Simethicone 80 Mg Tab.Chew) 80 mg PO QIDWMHS [facility] Last Admin: 11/30/23 11:22 Dose: 80 mg Documented By: JANET Sodium Chloride (0.9 % Sodium Chloride Flush 3 Ml Syringe) 3 ml IVFLUSH QSHIFT [facility] Last Admin: 11/30/23 12:16 Dose: Not Given Documented By: JANET Non-Admin Reason: See Note Tramadol HCl (Tramadol Hcl 50 Mg Tablet) 50 mg PO Q6H PRN PRN Reason: Pain, Moderate(Pain Scale 4-6) Last Admin: 11/30/23 14:15 Dose: 50 mg Documented By: JANET Labs 11/29/23 06:47 11/30/23 11:02 Labs: Laboratory Results - last 24 hr 11/29/23 11/30/23 18:19 05:56 Hold Purple Top SEE NOTE Anion Gap 11 L Estim Creat Clear Calc 69.2 Estimated GFR > 60 Random Glucose 125 H Calcium 8.9 Phosphorus 3.4 Magnesium 2.1 Albumin 2.8 L Vancomycin Trough 21.0 H Assessment and Plan (1) Hematoma: Status: Acute (2) Aspiration pneumonia: Status: Acute (3) Acute blood loss anemia: Status: Acute Plan 73yo M with HTN, HLD, GERD, CAD s/p LEELA to RCA 2007 admitted to [facility]urg for lap roosevelt done 11/10/23, returned to OR 11/11 for control of bleeder near cystic duct stump/hematoma evacuation/DONATO drain had syncopal episode likely due to vasovagal syndrome + acute blood loss anemia. 11/13 Aspiration PNA, 11/15 went into AFIB with RVR, converted after IV metoprolol and IV cardizem and remains in sinus since, 11/22 fever 101 Blood cultures + Parabacteroides distasonis. 11/24 Abscess drainage --E. Faecalis; 11/24 Urinary retention Croft, 11/25/23 Bilateral DVT of LE, IVC filter on11/26; 11/26 Bilateral PE sartedon Sub Cut Heparin d/t, 11/26 PPN d/t malnutrition; IV Lasix 11/27 for total body fluid overload of 14 L. 11/29/23 PICC line inserted Parabacteroides distasonis bacteremia 2/2 from 11/23 Enteroccus Faecalis and Parabacteroides distasonis in abscess drain repeat culture 11/26 negative@48hrs Echo pending PICC line inserted 11/29/23 Continue Zosyn started 11/22,Zosyn will cover both organisms, Vanco started 11/24, Vanco being stopped (11/29/22). Id follow up for duration of antibiotics Bilateral LE DVTs and tyron P/E d/t imobility and unable to anticoagulate-remains at high risk for bleeding s/p IVC filter 11/26, Sub Hep started on 11/26, so far no bleeding complication, and H/H stable, will adjust dose to q8 today and continue to closely monitor. Seen by hematology: full anticoagulation in the future if h/h stable and no further bleeding complications. Urinary retention 11/24 likely from BPH-Croft, uro consult--> Doxazosin, ? Uro to determine when to do voiding trial cholelithiasis-- - s/p lap roosevelt 11/10, complicated by hematoma, s/p evacuation, drain. management per surgery paroxysmal AF--transient on 11/15, d/t post op state, no further episode, seen by card. No indication for anticoagulation. Metoprolol 25 bid (also for HTN) acute blood loss anemia--related hematoma above- transfused 1u plts, 2u FFP, 6u pRBCs (total), last 2 units of 11/24, H/H stable. aspiration PNA- amp-sul 11/13-11/16, amox-clav 11/16-11/18. dependent pleural effusions- due to postop fluid shifts, encourage IS vasovagal syncope- resolved. prerenal GUTIERREZ- resolved after transfusion + fluid resuscitation. HTN- continue metoprolol tartrate, amlodipine, losartan. CAD- ASA on hold ( anemia), continue metoprolol. GERD - PPI Fluid overload/scrotal edema--+ 14 liters, IV Lasix and monitor I/O, electrolytes, change to PO in am VTE ppx - SCDs dispo - PT eval: [facility] suggested when acute issues resolved. Management being discussed with surgery on daily basis Out of bed, ambulate with staft and or PT daily at least 3 times, dicussed with staff in detail. Total time managing care of this patient today: 35 minutes. Quality Stroke Does the patient have a stroke diagnosis?: No VTE Prior VTE?: No VTE Risk Level:: Medical - moderate - high VTE Device Contraindication: N/A - Device Ordered VTE Drug Contraindication: Treatment Not Indicated (Contraindicated in view of possible bleeding)
[2023-11-30 19:54] VITALS: BP 174/81; PULSE 68; RESP 20; TEMP 37.1; O2SAT 92
[2023-11-30] MEDS: Doxazosin Mesylate 2 MG TABLET 4 MG PO (20:30)
[2023-11-30] MEDS: Losartan Potassium 50 MG TABLET 100 MG PO (20:30)
[2023-12-01] VITALS (7 sets, daily range): BP systolic 127–180; BP diastolic 66–84; PULSE 74–89; RESP 18–20; TEMP 36.3–37; O2SAT 93–96
[2023-12-01] MEDS: Heparin Sodium,Porcine Flush 50 UNITS/5 ML SYRINGE IVFLUSH ×3 (01:03→16:50)
[2023-12-01] MEDS: Piperacillin Sodium/Tazobactam 3.375 GM in 0.9 % Sodium Chloride 50 ML IV ×4 (01:06→19:48)
[2023-12-01] MEDS: ondansetron HCL 4 MG/2 ML VIAL IVPUSH (04:19)
[2023-12-01] MEDS: traMADoL HCL 50 MG TABLET PO ×2 (04:19→19:49)
[2023-12-01] MEDS: Heparin Sodium,Porcine 5,000 UNIT/ML VIAL 5000 UNIT SUBCUT ×3 (05:47→22:30)
[2023-12-01] MEDS: Omeprazole 20 MG CAPSULE.DR PO ×2 (05:49→16:49)
[2023-12-01 07:32] LABS: Albumin Level 2.8 g/dL (3.5-5.0); Anion Gap 11 (12-20); Blood Urea Nitrogen 16 mg/dL (9-16); Calcium 8.9 mg/dL (8.4-10.2); Carbon Dioxide 26 mmol/L (22-29); Chloride 103 mmol/L (96-108); Creatinine Clr Calc Pharmacy 69.2; Estimated Glomerular Filt Rate > 60; Glucose Random 115 mg/dL (60-115); Phosphorus 3.6 mg/dL (2.7-4.5); Potassium 3.3 mmol/L (3.3-5.1); Sodium 137 mmol/L (135-145)
[2023-12-01] MEDS: Acetaminophen 325 MG TABLET 650 MG PO (08:15)
[2023-12-01] MEDS: Finasteride 5 MG TABLET PO (08:16)
[2023-12-01] MEDS: Nystatin Powder 15 GM BOTTLE 1 APPL TOPICAL ×2 (08:17→22:30)
[2023-12-01] MEDS: Docusate Sodium 100 MG CAPSULE PO (08:17)
[2023-12-01] MEDS: Simethicone 80 MG TAB.CHEW PO ×4 (08:17→19:49)
[2023-12-01] MEDS: Metoprolol Tartrate 25 MG TABLET PO ×2 (08:17→19:49)
[2023-12-01] MEDS: amLODIPine Besylate 5 MG TABLET PO ×2 (08:17→19:48)
[2023-12-01 08:52] LABS: Hematocrit 26.9 % (42.0-52.0)
--- NOTE | 2023-12-01 10:25 | MHC.CM.PN ---
Pt is not yet ready for DC. DC plan is for pt. to go to [facility], 4 SNF's are following, updates have been sent. CM to continue to follow and assist with DC plan.
--- NOTE | 2023-12-01 12:53 | PM.PNGS ---
Subjective Subjective Date of Service: 12/03/23 Interval history: oral intake continues to be better ambulating more less SOB Physical Exam Vital Signs: Vital Signs: Last Vital Signs Temp 97.5 F 12/01/23 11:05 Pulse 74 12/01/23 11:05 Resp 18 12/01/23 11:05 BP 127/66 12/01/23 11:05 Pulse Ox 96 12/01/23 11:05 O2 Del Method Room Air 12/01/23 11:05 O2 Flow Rate 2 11/28/23 04:00 Oxygen Flow Rate 2 11/30/23 14:12 BMI result Body Mass Index 33.4 Const: General: no acute distress Resp: Effort & Inspection: normal respiratory effort Cardio: Rate: regular rate GI: Other: drains - dark blood, very scanty Palpation (GI): Soft to palpation Objective Data Active Medications Acetaminophen (Acetaminophen 325 Mg Tablet) 650 mg PO Q6H PRN PRN Reason: Pain, Mild (Pain Scale 1-3) Last Admin: 12/01/23 08:15 Dose: 650 mg Documented By: ARMIN Acetaminophen (Acetaminophen 325 Mg Tablet) 975 mg PO Q6H PRN PRN Reason: headache Last Admin: 11/29/23 21:14 Dose: 975 mg Documented By: ORESTES Amlodipine Besylate (Amlodipine Besylate 5 Mg Tablet) 5 mg PO BEDTIME [facility]; Protocol Last Admin: 11/30/23 20:31 Dose: 5 mg Documented By: KAUSHIK Amlodipine Besylate (Amlodipine Besylate 5 Mg Tablet) 5 mg PO DAILY [facility]; Protocol Last Admin: 12/01/23 08:17 Dose: 5 mg Documented By: ARMIN Docusate Sodium (Docusate Sodium 100 Mg Capsule) 100 mg PO BID [facility] Last Admin: 12/01/23 08:17 Dose: 100 mg Documented By: ARMIN Doxazosin Mesylate (Doxazosin Mesylate 2 Mg Tablet) 4 mg PO BEDTIME [facility]; Protocol Last Admin: 11/30/23 20:30 Dose: 4 mg Documented By: KAUSHIK Finasteride (Finasteride 5 Mg Tablet) 5 mg PO DAILY [facility] Last Admin: 12/01/23 08:16 Dose: 5 mg Documented By: ARMIN Heparin Sodium (Porcine) (Heparin Sodium,Porcine 5,000 Unit/Ml Vial) 5,000 unit SUBCUT Q8H [facility] Last Admin: 12/01/23 05:47 Dose: 5,000 unit Documented By: WILFRED Heparin Sodium (Porcine) (Heparin Sodium,Porcine Flush 50 Units/5 Ml Syringe) 50 units IVFLUSH QSHIFT [facility] Last Admin: 12/01/23 08:16 Dose: 50 units Documented By: ARMIN Piperacillin Sod/Tazobactam (Sod 3.375 gm/ Sodium Chloride) 50 mls @ 100 mls/hr IV Q6H [facility] Last Infusion: 12/01/23 08:49 Dose: Infused Documented By: ARMIN Losartan Potassium (Losartan Potassium 50 Mg Tablet) 100 mg PO BEDTIME [facility]; Protocol Last Admin: 11/30/23 20:30 Dose: 100 mg Documented By: KAUSHIK Metoclopramide HCl (Metoclopramide Hcl 10 Mg/2 Ml Vial) 5 mg IVPUSH Q6H PRN PRN Reason: Nausea and Vomiting Metoprolol Tartrate (Metoprolol Tartrate 25 Mg Tablet) 25 mg PO BID [facility]; Protocol Last Admin: 12/01/23 08:17 Dose: 25 mg Documented By: ARMIN Nystatin (Nystatin Powder 15 Gm Bottle) 1 appl TOPICAL BID [facility]; Protocol Last Admin: 12/01/23 08:17 Dose: 1 appl Documented By: ARMIN Omeprazole (Omeprazole 20 Mg Capsule.Dr) 20 mg PO BID@0630,1630 [facility] Last Admin: 12/01/23 05:49 Dose: 20 mg Documented By: WILFRED Ondansetron HCl (Ondansetron Hcl 4 Mg/2 Ml Vial) 4 mg IVPUSH Q8H PRN PRN Reason: nausea Last Admin: 12/01/23 04:19 Dose: 4 mg Documented By: WILFRED Oxycodone HCl (Oxycodone Hcl Immed Release 5 Mg Tablet) 5 mg PO Q6H PRN PRN Reason: Pain, Severe (Pain Scale 7-10) Pharmacy Consult (Consult Rx Parenteral Nutrition Ordering) 1 each MISCELLANE DAILY PRN PRN Reason: Consult order Simethicone (Simethicone 80 Mg Tab.Chew) 80 mg PO QIDWMHS [facility] Last Admin: 12/01/23 08:17 Dose: 80 mg Documented By: ARMIN Sodium Chloride (0.9 % Sodium Chloride Flush 3 Ml Syringe) [facility] Last Admin: 12/01/23 08:16 Dose: 3 ml Documented By: ARMIN Tramadol HCl (Tramadol Hcl 50 Mg Tablet) 50 mg PO Q6H PRN PRN Reason: Pain, Moderate(Pain Scale 4-6) Last Admin: 12/01/23 04:19 Dose: 50 mg Documented By: WILFRED Labs 12/02/23 09:56 12/03/23 06:35 Labs: Laboratory Results - last 24 hr 12/01/23 06:18 Hold Purple Top SEE NOTE Anion Gap 11 L Estim Creat Clear Calc 69.2 Estimated GFR > 60 Random Glucose 115 Calcium 8.9 Phosphorus 3.6 Magnesium 2.0 Albumin 2.8 L Procedures Date of Service Date of Service: 12/03/23 Progress Note: A&P Assessment and plan (1) Postoperative anemia due to acute blood loss: Status: Acute Assessment and Plan: continues to improve oral intake better better exercise tolerance start planning for Rehab updated frequently Time Spent With Patient Time: Total time managing care of this patient today ____ minutes. Quality Stroke Does the patient have a stroke diagnosis?: No VTE Prior VTE?: No VTE Risk Level:: Medical - moderate - high VTE Device Contraindication: N/A - Device Ordered VTE Drug Contraindication: Treatment Not Indicated (Contraindicated in view of possible bleeding)
--- NOTE | 2023-12-01 16:03 | PM.EVENT ---
Event Note Date of Service: 12/01/23 Event Note: He says she continues to feel better Oral intake improving He has been walking more He states he has a lot more comfortable I discussed with him and his - start planning for rehab placement Time Spent With Patient Time: Total time managing care of this patient today ____ minutes.
--- NOTE | 2023-12-01 16:20 | HO.PM.IMPN ---
Subjective Subjective Date of Service: 12/01/23 Interval History: follow up Review of Systems Says slowly is feeling better Eating better Encouraged for ambulation also. Physical Exam Vital Signs: Vital Signs: Last Vital Signs Temp 97.4 F 12/01/23 15:30 Pulse 77 12/01/23 15:30 Resp 18 12/01/23 15:30 BP 154/68 H 12/01/23 15:30 Pulse Ox 95 12/01/23 15:30 O2 Del Method Room Air 12/01/23 15:30 O2 Flow Rate 2 11/28/23 04:00 Oxygen Flow Rate 2 11/30/23 14:12 BMI result Body Mass Index 33.4 Gen: Not in acute distress, alert and oriented CV RRR,s1s2 heard. Neuro: alert and oriented x3, no focal findings Psych: appropriate affect Objective Data Active Medications Acetaminophen (Acetaminophen 325 Mg Tablet) 650 mg PO Q6H PRN PRN Reason: Pain, Mild (Pain Scale 1-3) Last Admin: 12/01/23 08:15 Dose: 650 mg Documented By: ARMIN Acetaminophen (Acetaminophen 325 Mg Tablet) 975 mg PO Q6H PRN PRN Reason: headache Last Admin: 11/29/23 21:14 Dose: 975 mg Documented By: ORESTES Amlodipine Besylate (Amlodipine Besylate 5 Mg Tablet) 5 mg PO BEDTIME [facility]; Protocol Last Admin: 11/30/23 20:31 Dose: 5 mg Documented By: KAUSHIK Amlodipine Besylate (Amlodipine Besylate 5 Mg Tablet) 5 mg PO DAILY [facility]; Protocol Last Admin: 12/01/23 08:17 Dose: 5 mg Documented By: ARMIN Docusate Sodium (Docusate Sodium 100 Mg Capsule) 100 mg PO BID [facility] Last Admin: 12/01/23 08:17 Dose: 100 mg Documented By: ARMIN Doxazosin Mesylate (Doxazosin Mesylate 2 Mg Tablet) 4 mg PO BEDTIME [facility]; Protocol Last Admin: 11/30/23 20:30 Dose: 4 mg Documented By: KAUSHIK Finasteride (Finasteride 5 Mg Tablet) 5 mg PO DAILY [facility] Last Admin: 12/01/23 08:16 Dose: 5 mg Documented By: ARMIN Heparin Sodium (Porcine) (Heparin Sodium,Porcine 5,000 Unit/Ml Vial) 5,000 unit SUBCUT Q8H [facility] Last Admin: 12/01/23 13:46 Dose: 5,000 unit Documented By: ARMIN Heparin Sodium (Porcine) (Heparin Sodium,Porcine Flush 50 Units/5 Ml Syringe) 50 units IVFLUSH QSHIFT [facility] Last Admin: 12/01/23 08:16 Dose: 50 units Documented By: ARMIN Piperacillin Sod/Tazobactam (Sod 3.375 gm/ Sodium Chloride) 50 mls @ 100 mls/hr IV Q6H [facility] Last Infusion: 12/01/23 14:38 Dose: Infused Documented By: ARMIN Losartan Potassium (Losartan Potassium 50 Mg Tablet) 100 mg PO BEDTIME [facility]; Protocol Last Admin: 11/30/23 20:30 Dose: 100 mg Documented By: KAUSHIK Metoclopramide HCl (Metoclopramide Hcl 10 Mg/2 Ml Vial) 5 mg IVPUSH Q6H PRN PRN Reason: Nausea and Vomiting Metoprolol Tartrate (Metoprolol Tartrate 25 Mg Tablet) 25 mg PO BID [facility]; Protocol Last Admin: 12/01/23 08:17 Dose: 25 mg Documented By: ARMIN Nystatin (Nystatin Powder 15 Gm Bottle) 1 appl TOPICAL BID [facility]; Protocol Last Admin: 12/01/23 08:17 Dose: 1 appl Documented By: ARMIN Omeprazole (Omeprazole 20 Mg Capsule.Dr) 20 mg PO BID@0630,1630 [facility] Last Admin: 12/01/23 05:49 Dose: 20 mg Documented By: WILFRED Ondansetron HCl (Ondansetron Hcl 4 Mg/2 Ml Vial) 4 mg IVPUSH Q8H PRN PRN Reason: nausea Last Admin: 12/01/23 04:19 Dose: 4 mg Documented By: WILFRED Oxycodone HCl (Oxycodone Hcl Immed Release 5 Mg Tablet) 5 mg PO Q6H PRN PRN Reason: Pain, Severe (Pain Scale 7-10) Pharmacy Consult (Consult Rx Parenteral Nutrition Ordering) 1 each MISCELLANE DAILY PRN PRN Reason: Consult order Simethicone (Simethicone 80 Mg Tab.Chew) 80 mg PO QIDWMHS [facility] Last Admin: 12/01/23 13:45 Dose: 80 mg Documented By: ARMIN Sodium Chloride (0.9 % Sodium Chloride Flush 3 Ml Syringe) 3 ml IVFLUSH QSHIFT [facility] Last Admin: 12/01/23 08:16 Dose: 3 ml Documented By: ARMIN Tramadol HCl (Tramadol Hcl 50 Mg Tablet) 50 mg PO Q6H PRN PRN Reason: Pain, Moderate(Pain Scale 4-6) Last Admin: 12/01/23 04:19 Dose: 50 mg Documented By: WILFRED Labs 12/01/23 08:39 12/01/23 06:18 Labs: Laboratory Results - last 24 hr 12/01/23 06:18 Hold Purple Top SEE NOTE Anion Gap 11 L Estim Creat Clear Calc 69.2 Estimated GFR > 60 Random Glucose 115 Calcium 8.9 Phosphorus 3.6 Magnesium 2.0 Albumin 2.8 L Microbiology Microbiology Results: Microbiology 11/26/23 13:45 Blood Culture - Final Blood - Venous No growth after 5 days. 11/26/23 13:45 Blood Culture - Final Blood - Venous No growth after 5 days. Assessment and Plan (1) Hematoma: Status: Acute (2) Aspiration pneumonia: Status: Acute (3) Acute blood loss anemia: Status: Acute Plan 73yo M with HTN, HLD, GERD, CAD s/p LEELA to RCA 2007 admitted to [facility] for lap roosevelt done 11/10/23, returned to OR 11/11 for control of bleeder near cystic duct stump/hematoma evacuation/DONATO drain had syncopal episode likely due to vasovagal syndrome + acute blood loss anemia. 11/13 Aspiration PNA, 11/15 went into AFIB with RVR, converted after IV metoprolol and IV cardizem and remains in sinus since, 11/22 fever 101 Blood cultures + Parabacteroides distasonis. 11/24 Abscess drainage --E. Faecalis; 11/24 Urinary retention Croft, 11/25/23 Bilateral DVT of LE, IVC filter on11/26; 11/26 Bilateral PE sartedon Sub Cut Heparin d/t, 11/26 PPN d/t malnutrition; IV Lasix 11/27 for total body fluid overload of 14 L. 11/29/23 PICC line inserted Parabacteroides distasonis bacteremia 2/2 from 11/23 Enteroccus Faecalis and Parabacteroides distasonis in abscess drain repeat culture 11/26 negative@48hrs Echo pending PICC line inserted 11/29/23 Continue Zosyn started 11/22,Zosyn will cover both organisms, Vanco started 11/24, Vanco being stopped (11/29/22). Id follow up for duration of antibiotics Bilateral LE DVTs and tyron P/E d/t imobility and unable to anticoagulate-remains at high risk for bleeding s/p IVC filter 11/26, Sub Hep started on 11/26, so far no bleeding complication, and H/H stable, will adjust dose to q8 today and continue to closely monitor. Seen by hematology: full anticoagulation in the future if h/h stable and no further bleeding complications. Urinary retention 11/24 likely from BPH-Croft, uro consult--> Doxazosin, ? Uro to determine when to do voiding trial cholelithiasis-- - s/p lap roosevelt 11/10, complicated by hematoma, s/p evacuation, drain. management per surgery paroxysmal AF--transient on 11/15, d/t post op state, no further episode, seen by card- Metoprolol 25 bid (also for HTN), will need hematology /surgery follow to about furture anticoagulation acute blood loss anemia--related hematoma above- transfused 1u plts, 2u FFP, 6u pRBCs (total), last 2 units of 11/24, H/H stable. aspiration PNA- amp-sul 11/13-11/16, amox-clav 11/16-11/18. dependent pleural effusions- due to postop fluid shifts, encourage IS vasovagal syncope- resolved. prerenal GUTIERREZ- resolved after transfusion + fluid resuscitation. HTN- continue metoprolol tartrate, amlodipine, losartan. CAD- ASA on hold ( anemia), continue metoprolol. GERD - PPI Fluid overload/scrotal edema--+ 14 liters, IV Lasix and monitor I/O, electrolytes, change to PO in am VTE ppx - SCDs dispo - PT eval: STR suggested when acute issues resolved. Management being discussed with surgery on daily basis Out of bed, ambulate with staft and or PT daily at least 3 times, dicussed with staff in detail. Total time managing care of this patient today: 35 minutes. Quality Stroke Does the patient have a stroke diagnosis?: No VTE Prior VTE?: No VTE Risk Level:: Medical - moderate - high VTE Device Contraindication: N/A - Device Ordered VTE Drug Contraindication: Treatment Not Indicated (Contraindicated in view of possible bleeding)
[2023-12-01] MEDS: Doxazosin Mesylate 2 MG TABLET 4 MG PO (19:48)
[2023-12-01] MEDS: Losartan Potassium 50 MG TABLET 100 MG PO (19:48)
[2023-12-02] VITALS (8 sets, daily range): BP systolic 120–158; BP diastolic 68–75; PULSE 64–88; RESP 18–20; TEMP 36.7–37.7; O2SAT 93–98
[2023-12-02] MEDS: Heparin Sodium,Porcine Flush 50 UNITS/5 ML SYRINGE IVFLUSH ×3 (01:12→15:15)
[2023-12-02] MEDS: Piperacillin Sodium/Tazobactam 3.375 GM in 0.9 % Sodium Chloride 50 ML IV ×4 (01:12→19:34)
[2023-12-02] MEDS: Omeprazole 20 MG CAPSULE.DR PO ×2 (05:52→17:45)
[2023-12-02] MEDS: Heparin Sodium,Porcine 5,000 UNIT/ML VIAL 5000 UNIT SUBCUT ×3 (05:52→21:07)
[2023-12-02 07:06] LABS: Vancomycin Trough 3.1 mcg/mL (10.0-20.0)
[2023-12-02 07:09] LABS: Albumin Level 2.8 g/dL (3.5-5.0); Anion Gap 12 (12-20); Blood Urea Nitrogen 14 mg/dL (9-16); Calcium 8.8 mg/dL (8.4-10.2); Carbon Dioxide 25 mmol/L (22-29); Chloride 105 mmol/L (96-108); Creatinine Clr Calc Pharmacy 68.5; Estimated Glomerular Filt Rate > 60; Glucose Random 94 mg/dL (60-115); Phosphorus 3.6 mg/dL (2.7-4.5); Potassium 3.4 mmol/L (3.3-5.1); Sodium 139 mmol/L (135-145)
--- NOTE | 2023-12-02 08:31 | P.PNIM_ITS ---
Subjective Subjective Date of Service: 12/02/23 Interval History: follow up Review of Systems improving -feeling slowly better no fevers Physical Exam 2 Vital Signs: Vital Signs: Last Vital Signs Temp 99.8 F 12/02/23 07:32 Pulse 88 12/02/23 07:32 Resp 18 12/02/23 07:32 BP 154/70 H 12/02/23 07:32 Pulse Ox 97 12/02/23 07:32 O2 Del Method Room Air 12/02/23 07:32 O2 Flow Rate 2 11/28/23 04:00 Oxygen Flow Rate 2 11/30/23 14:12 BMI result Body Mass Index 33.4 Gen: Not in acute distress, alert and oriented CV RRR,s1s2 heard. Neuro: alert and oriented x3, no focal findings Psych: appropriate affect Objective Data Active Medications Acetaminophen (Acetaminophen 325 Mg Tablet) 650 mg PO Q6H PRN PRN Reason: Pain, Mild (Pain Scale 1-3) Last Admin: 12/01/23 08:15 Dose: 650 mg Documented By: ARMIN Acetaminophen (Acetaminophen 325 Mg Tablet) 975 mg PO Q6H PRN PRN Reason: headache Last Admin: 11/29/23 21:14 Dose: 975 mg Documented By: ORESTES Amlodipine Besylate (Amlodipine Besylate 5 Mg Tablet) 5 mg PO BEDTIME [facility]; Protocol Last Admin: 12/01/23 19:48 Dose: 5 mg Documented By: KAUSHIK Amlodipine Besylate (Amlodipine Besylate 5 Mg Tablet) 5 mg PO DAILY [facility]; Protocol Last Admin: 12/01/23 08:17 Dose: 5 mg Documented By: ARMIN Docusate Sodium (Docusate Sodium 100 Mg Capsule) 100 mg PO BID [facility] Last Admin: 12/01/23 22:26 Dose: Not Given Documented By: KAUSHIK Non-Admin Reason: Patient Refused Doxazosin Mesylate (Doxazosin Mesylate 2 Mg Tablet) 4 mg PO BEDTIME [facility]; Protocol Last Admin: 12/01/23 19:48 Dose: 4 mg Documented By: KAUSHIK Finasteride (Finasteride 5 Mg Tablet) 5 mg PO DAILY [facility] Last Admin: 12/01/23 08:16 Dose: 5 mg Documented By: ARMIN Heparin Sodium (Porcine) (Heparin Sodium,Porcine 5,000 Unit/Ml Vial) 5,000 unit SUBCUT Q8H [facility] Last Admin: 12/02/23 05:52 Dose: 5,000 unit Documented By: RADHA Heparin Sodium (Porcine) (Heparin Sodium,Porcine Flush 50 Units/5 Ml Syringe) 50 units IVFLUSH QSHIFT [facility] Last Admin: 12/02/23 01:12 Dose: 50 units Documented By: RADHA Piperacillin Sod/Tazobactam (Sod 3.375 gm/ Sodium Chloride) 50 mls @ 100 mls/hr IV Q6H [facility] Last Infusion: 12/02/23 01:46 Dose: Infused Documented By: RADHA Losartan Potassium (Losartan Potassium 50 Mg Tablet) 100 mg PO BEDTIME [facility]; Protocol Last Admin: 12/01/23 19:48 Dose: 100 mg Documented By: KAUSHIK Metoclopramide HCl (Metoclopramide Hcl 10 Mg/2 Ml Vial) 5 mg IVPUSH Q6H PRN PRN Reason: Nausea and Vomiting Metoprolol Tartrate (Metoprolol Tartrate 25 Mg Tablet) 25 mg PO BID [facility]; Protocol Last Admin: 12/01/23 19:49 Dose: 25 mg Documented By: KAUSHIK Nystatin (Nystatin Powder 15 Gm Bottle) 1 appl TOPICAL BID [facility]; Protocol Last Admin: 12/01/23 22:30 Dose: 1 appl Documented By: KAUSHIK Omeprazole (Omeprazole 20 Mg Capsule.Dr) 20 mg PO BID@0630,1630 [facility] Last Admin: 12/02/23 05:52 Dose: 20 mg Documented By: RADHA Ondansetron HCl (Ondansetron Hcl 4 Mg/2 Ml Vial) 4 mg IVPUSH Q8H PRN PRN Reason: nausea Last Admin: 12/01/23 04:19 Dose: 4 mg Documented By: WILFRED Oxycodone HCl (Oxycodone Hcl Immed Release 5 Mg Tablet) 5 mg PO Q6H PRN PRN Reason: Pain, Severe (Pain Scale 7-10) Pharmacy Consult (Consult Rx Parenteral Nutrition Ordering) 1 each MISCELLANE DAILY PRN PRN Reason: Consult order Simethicone (Simethicone 80 Mg Tab.Chew) 80 mg PO QIDWMHS [facility] Last Admin: 12/01/23 19:49 Dose: 80 mg Documented By: KAUSHIK Sodium Chloride (0.9 % Sodium Chloride Flush 3 Ml Syringe) 3 ml IVFLUSH QSHIFT [facility] Last Admin: 12/02/23 01:12 Dose: 3 ml Documented By: RADHA Tramadol HCl (Tramadol Hcl 50 Mg Tablet) 50 mg PO Q6H PRN PRN Reason: Pain, Moderate(Pain Scale 4-6) Last Admin: 12/01/23 19:49 Dose: 50 mg Documented By: KAUSHIK Labs 12/02/23 09:56 12/02/23 06:33 Labs: Laboratory Results - last 24 hr 12/02/23 06:33 Anion Gap 12 Estim Creat Clear Calc 68.5 Estimated GFR > 60 Random Glucose 94 Calcium 8.8 Phosphorus 3.6 Magnesium 2.0 Albumin 2.8 L Vancomycin Trough 3.1 L Microbiology Microbiology Results: Microbiology 11/26/23 13:45 Blood Culture - Final Blood - Venous No growth after 5 days. 11/26/23 13:45 Blood Culture - Final Blood - Venous No growth after 5 days. Assessment and Plan (1) Hematoma: Status: Acute (2) Aspiration pneumonia: Status: Acute (3) Acute blood loss anemia: Status: Acute Plan 73yo M with HTN, HLD, GERD, CAD s/p LEELA to RCA 2007 admitted to [facility] Surg for lap roosevelt done 11/10/23, returned to OR 11/11 for control of bleeder near cystic duct stump/hematoma evacuation/DONATO drain had syncopal episode likely due to vasovagal syndrome + acute blood loss anemia. 11/13 Aspiration PNA, 11/15 went into AFIB with RVR, converted after IV metoprolol and IV cardizem and remains in sinus since, 11/22 fever 101 Blood cultures + Parabacteroides distasonis. 11/24 Abscess drainage --E. Faecalis; 11/24 Urinary retention Reynolds, 11/25/23 Bilateral DVT of LE, IVC filter on11/26; 11/26 Bilateral PE sartedon Sub Cut Heparin d/t, 11/26 PPN d/t malnutrition; IV Lasix 11/27 for total body fluid overload of 14 L. 11/29/23 PICC line inserted Parabacteroides distasonis bacteremia 2/2 from 11/23 Enteroccus Faecalis and Parabacteroides distasonis in abscess drain repeat culture 11/26 negative@48hrs Echo pending PICC line inserted 11/29/23 Vanco started 11/24, Vanco being stopped (11/29/22). Continue Zosyn started 11/22,Zosyn will cover both organisms, Id follow -recomended zosyn 2-3 weeks, consider ct abd as per primary team. Bilateral LE DVTs and tyron P/E d/t imobility and unable to anticoagulate-remains at high risk for bleeding s/p IVC filter 11/26, Sub Hep started on 11/26, so far no bleeding complication, and H/H stable, will adjust dose to q8 today and continue to closely monitor. Seen by hematology: full anticoagulation in the future if h/h stable and no further bleeding complications. Urinary retention 11/24 likely from BPH-Reynolds, uro consult--> Doxazosin, ? Uro to determine when to do voiding trial: as per staff reynolds was leaking-off reynolds ,patient already void 1 liter. moniter pvr. cholelithiasis-- - s/p lap roosevelt 11/10, complicated by hematoma, s/p evacuation, drain. management per surgery paroxysmal AF--transient on 11/15, d/t post op state, no further episode, seen by card- Metoprolol 25 bid (also for HTN), will need hematology /surgery follow to about furture anticoagulation ( has dvt and Pulmonary embolism) acute blood loss anemia--related hematoma above- transfused 1u plts, 2u FFP, 6u pRBCs (total), last 2 units of 11/24, H/H stable. aspiration PNA- amp-sul 11/13-11/16, amox-clav 11/16-11/18. dependent pleural effusions- due to postop fluid shifts, encourage IS vasovagal syncope- resolved. prerenal GUTIERREZ- resolved after transfusion + fluid resuscitation. HTN- continue metoprolol tartrate, amlodipine, losartan. CAD- ASA on hold ( anemia), continue metoprolol. GERD - PPI Fluid overload/scrotal edema--+ 14 liters, IV Lasix and monitor I/O, electrolytes, change to PO . VTE ppx - SCDs dispo - PT eval: STR suggested when acute issues resolved. Management being discussed with surgery on daily basis Out of bed, ambulate with staft and or PT daily at least 3 times, dicussed with staff in detail. Total time managing care of this patient today: 35 minutes. Quality Stroke Does the patient have a stroke diagnosis?: No VTE Prior VTE?: No VTE Risk Level:: Medical - moderate - high VTE Device Contraindication: N/A - Device Ordered VTE Drug Contraindication: Treatment Not Indicated (Contraindicated in view of possible bleeding)
--- NOTE | 2023-12-02 08:47 | PM.PNGS ---
Subjective Subjective Date of Service: 12/03/23 Interval history: Continues to improve Oral intake much better Has BMs, flatus Exercise tolerance better Physical Exam Vital Signs: Vital Signs: Last Vital Signs Temp 99.8 F 12/02/23 07:32 Pulse 88 12/02/23 07:32 Resp 18 12/02/23 07:32 BP 154/70 H 12/02/23 07:32 Pulse Ox 97 12/02/23 07:32 O2 Del Method Room Air 12/02/23 07:32 O2 Flow Rate 2 11/28/23 04:00 Oxygen Flow Rate 2 11/30/23 14:12 BMI result Body Mass Index 33.4 Const: Other: Sitting on recliner General: comfortable and no acute distress Resp: Effort & Inspection: normal respiratory effort Cardio: Rate: regular rate GI: Other: Drains with old blood Palpation (GI): Soft to palpation and not firm Objective Data Active Medications Acetaminophen (Acetaminophen 325 Mg Tablet) 650 mg PO Q6H PRN PRN Reason: Pain, Mild (Pain Scale 1-3) Last Admin: 12/01/23 08:15 Dose: 650 mg Documented By: ARMIN Acetaminophen (Acetaminophen 325 Mg Tablet) 975 mg PO Q6H PRN PRN Reason: headache Last Admin: 11/29/23 21:14 Dose: 975 mg Documented By: ORESTES Amlodipine Besylate (Amlodipine Besylate 5 Mg Tablet) 5 mg PO BEDTIME [facility]; Protocol Last Admin: 12/01/23 19:48 Dose: 5 mg Documented By: KAUSHIK Amlodipine Besylate (Amlodipine Besylate 5 Mg Tablet) 5 mg PO DAILY [facility]; Protocol Last Admin: 12/01/23 08:17 Dose: 5 mg Documented By: ARMIN Docusate Sodium (Docusate Sodium 100 Mg Capsule) 100 mg PO BID [facility] Last Admin: 12/01/23 22:26 Dose: Not Given Documented By: KAUSHIK Non-Admin Reason: Patient Refused Doxazosin Mesylate (Doxazosin Mesylate 2 Mg Tablet) 4 mg PO BEDTIME [facility]; Protocol Last Admin: 12/01/23 19:48 Dose: 4 mg Documented By: KAUSHIK Finasteride (Finasteride 5 Mg Tablet) 5 mg PO DAILY [facility] Last Admin: 12/01/23 08:16 Dose: 5 mg Documented By: ARMIN Heparin Sodium (Porcine) (Heparin Sodium,Porcine 5,000 Unit/Ml Vial) 5,000 unit SUBCUT Q8H [facility] Last Admin: 12/02/23 05:52 Dose: 5,000 unit Documented By: RADHA Heparin Sodium (Porcine) (Heparin Sodium,Porcine Flush 50 Units/5 Ml Syringe) 50 units IVFLUSH QSHIFT [facility] Last Admin: 12/02/23 01:12 Dose: 50 units Documented By: RADHA Piperacillin Sod/Tazobactam (Sod 3.375 gm/ Sodium Chloride) 50 mls @ 100 mls/hr IV Q6H [facility] Last Infusion: 12/02/23 01:46 Dose: Infused Documented By: RADHA Losartan Potassium (Losartan Potassium 50 Mg Tablet) 100 mg PO BEDTIME [facility]; Protocol Last Admin: 12/01/23 19:48 Dose: 100 mg Documented By: KAUSHIK Metoclopramide HCl (Metoclopramide Hcl 10 Mg/2 Ml Vial) 5 mg IVPUSH Q6H PRN PRN Reason: Nausea and Vomiting Metoprolol Tartrate (Metoprolol Tartrate 25 Mg Tablet) 25 mg PO BID [facility]; Protocol Last Admin: 12/01/23 19:49 Dose: 25 mg Documented By: KAUSHIK Nystatin (Nystatin Powder 15 Gm Bottle) 1 appl TOPICAL BID [facility]; Protocol Last Admin: 12/01/23 22:30 Dose: 1 appl Documented By: KAUSHIK Omeprazole (Omeprazole 20 Mg Capsule.Dr) 20 mg PO BID@0630,1630 [facility] Last Admin: 12/02/23 05:52 Dose: 20 mg Documented By: RADHA Ondansetron HCl (Ondansetron Hcl 4 Mg/2 Ml Vial) 4 mg IVPUSH Q8H PRN PRN Reason: nausea Last Admin: 12/01/23 04:19 Dose: 4 mg Documented By: WILFRED Oxycodone HCl (Oxycodone Hcl Immed Release 5 Mg Tablet) 5 mg PO Q6H PRN PRN Reason: Pain, Severe (Pain Scale 7-10) Pharmacy Consult (Consult Rx Parenteral Nutrition Ordering) 1 each MISCELLANE DAILY PRN PRN Reason: Consult order Simethicone (Simethicone 80 Mg Tab.Chew) 80 mg PO QIDWMHS [facility] Last Admin: 12/01/23 19:49 Dose: 80 mg Documented By: KAUSHIK Sodium Chloride (0.9 % Sodium Chloride Flush 3 Ml Syringe) 3 ml IVFLUSH QSHIFT [facility] Last Admin: 12/02/23 01:12 Dose: 3 ml Documented By: RADHA Tramadol HCl (Tramadol Hcl 50 Mg Tablet) 50 mg PO Q6H PRN PRN Reason: Pain, Moderate(Pain Scale 4-6) Last Admin: 12/01/23 19:49 Dose: 50 mg Documented By: KAUSHIK Labs 12/02/23 09:56 12/03/23 06:35 Labs: Laboratory Results - last 24 hr 12/02/23 06:33 Anion Gap 12 Estim Creat Clear Calc 68.5 Estimated GFR > 60 Random Glucose 94 Calcium 8.8 Phosphorus 3.6 Magnesium 2.0 Albumin 2.8 L Vancomycin Trough 3.1 L Microbiology Microbiology Results: Microbiology 11/26/23 13:45 Blood Culture - Final Blood - Venous No growth after 5 days. 11/26/23 13:45 Blood Culture - Final Blood - Venous No growth after 5 days. Procedures Date of Service Date of Service: 12/03/23 Progress Note: A&P Assessment and plan (1) Postoperative anemia due to acute blood loss: Status: Acute Assessment and Plan: Continues to improve Oral intake much better Better exercise tolerance Hemoglobin has been stable Likely rehab placement tomorrow - discussed with event Plan to DC drains before discharge Anticoagulation for DVT and PE Time Spent With Patient Time: Total time managing care of this patient today ____ minutes. Quality Stroke Does the patient have a stroke diagnosis?: No VTE Prior VTE?: No VTE Risk Level:: Medical - moderate - high VTE Device Contraindication: N/A - Device Ordered VTE Drug Contraindication: Treatment Not Indicated (Contraindicated in view of possible bleeding)
[2023-12-02] MEDS: Finasteride 5 MG TABLET PO (08:58)
[2023-12-02] MEDS: traMADoL HCL 50 MG TABLET PO ×2 (08:58→15:13)
[2023-12-02] MEDS: amLODIPine Besylate 5 MG TABLET PO ×2 (08:58→20:33)
[2023-12-02] MEDS: Simethicone 80 MG TAB.CHEW PO ×4 (08:58→20:33)
[2023-12-02] MEDS: Docusate Sodium 100 MG CAPSULE PO (08:58)
[2023-12-02] MEDS: Metoprolol Tartrate 25 MG TABLET PO ×2 (09:00→20:33)
[2023-12-02] MEDS: Nystatin Powder 15 GM BOTTLE 1 APPL TOPICAL ×2 (09:03→19:35)
--- NOTE | 2023-12-02 09:55 | MHC.CLN ---
F/U PPN D/C PO INTAKE 100% DIET RX: REGULAR-APPROPRIATE PT RECEIVING ENSURE CLEAR AND FORTIFIED ICE CREAM TO INCREASE KCALS STRICT PO INTAKE RECORDS RD TO FOLLOW X 7 DAYS
[2023-12-02 10:09] LABS: Hematocrit 27.8 % (42.0-52.0)
[2023-12-02] MEDS: Lidocaine 4 % Patch ADH..PATCH 1 PATCH TRANSDERMA (12:35)
[2023-12-02] MEDS: Acetaminophen 325 MG TABLET 975 MG PO (12:52)
--- NOTE | 2023-12-02 14:10 | PC.NURSE ---
patient's reynolds cath was leaking significant amount of urine and patient requested to have removed. Dr. lizama was consulted and reynolds cath was removed at 1000.patient tolerated well and catheter was intact upon removal. patient due to void by 1600. 200 mLs or clear yellow urine voided at 1200. patient denies any dysuria, no hematuria noted in urinal.
--- NOTE | 2023-12-02 15:13 | MHC.CM.PN ---
Second IMM given, anticipate DC 12/03/23, updates sent to pt.'s choices of STR: [facility] and [facility]. CM to continue to assist with DC plan.
[2023-12-02] MEDS: Acetaminophen 325 MG TABLET 650 MG PO (19:41)
[2023-12-02] MEDS: Losartan Potassium 50 MG TABLET 100 MG PO (20:33)
[2023-12-02] MEDS: Doxazosin Mesylate 2 MG TABLET 4 MG PO (20:33)
[2023-12-02] MEDS: oxyCODONE HCl Immed Release 5 MG TABLET PO (23:33)
[2023-12-03] VITALS: BP 159/74; PULSE 72; RESP 20; TEMP 36.3; O2SAT 94
[2023-12-03] MEDS: Heparin Sodium,Porcine Flush 50 UNITS/5 ML SYRINGE IVFLUSH ×2 (01:02→07:56)
[2023-12-03] MEDS: Piperacillin Sodium/Tazobactam 3.375 GM in 0.9 % Sodium Chloride 50 ML IV ×2 (01:02→08:21)
[2023-12-03 03:20] VITALS: BP 169/78; PULSE 88; RESP 20; TEMP 36.3; O2SAT 93
[2023-12-03] MEDS: Heparin Sodium,Porcine 5,000 UNIT/ML VIAL 5000 UNIT SUBCUT (05:43)
[2023-12-03] MEDS: Omeprazole 20 MG CAPSULE.DR PO (05:43)
[2023-12-03] MEDS: oxyCODONE HCl Immed Release 5 MG TABLET PO (05:44)
[2023-12-03 07:13] LABS: Albumin Level 2.9 g/dL (3.5-5.0); Anion Gap 12 (12-20); Blood Urea Nitrogen 10 mg/dL (9-16); Calcium 8.8 mg/dL (8.4-10.2); Carbon Dioxide 25 mmol/L (22-29); Chloride 106 mmol/L (96-108); Creatinine Clr Calc Pharmacy 70.6; Estimated Glomerular Filt Rate > 60; Glucose Random 106 mg/dL (60-115); Phosphorus 3.4 mg/dL (2.7-4.5); Potassium 3.3 mmol/L (3.3-5.1); Sodium 140 mmol/L (135-145)
--- NOTE | 2023-12-03 07:45 | HO.PM.IMPN ---
Subjective Subjective Date of Service: 12/03/23 Interval History: follow up Review of Systems oral intake improving -feeling slowly better no fevers Physical Exam Vital Signs: Vital Signs: Last Vital Signs Temp 97.4 F 12/03/23 03:20 Pulse 88 12/03/23 03:20 Resp 20 12/03/23 03:20 BP 169/78 H 12/03/23 03:20 Pulse Ox 93 12/03/23 03:20 O2 Del Method Room Air 12/03/23 03:20 O2 Flow Rate 2 11/28/23 04:00 Oxygen Flow Rate 2 11/30/23 14:12 BMI result Body Mass Index 33.4 Gen: Not in acute distress, alert and oriented CV RRR,s1s2 heard. abd: soft ,has drain (mimimal pinkish fluid),abd wrapped ,no significant pain but has mild soarness ,bs present . Neuro: alert and oriented x3, no focal findings Psych: appropriate affect Objective Data Active Medications Acetaminophen (Acetaminophen 325 Mg Tablet) 650 mg PO Q6H PRN PRN Reason: Pain, Mild (Pain Scale 1-3) Last Admin: 12/02/23 19:41 Dose: 650 mg Documented By: ESTEBAN Amlodipine Besylate (Amlodipine Besylate 5 Mg Tablet) 5 mg PO BEDTIME [facility]; Protocol Last Admin: 12/02/23 20:33 Dose: 5 mg Documented By: ESTEBAN Amlodipine Besylate (Amlodipine Besylate 5 Mg Tablet) 5 mg PO DAILY [facility]; Protocol Last Admin: 12/02/23 08:58 Dose: 5 mg Documented By: ARMIN Docusate Sodium (Docusate Sodium 100 Mg Capsule) 100 mg PO BID [facility] Last Admin: 12/02/23 20:34 Dose: Not Given Documented By: ESTEBAN Non-Admin Reason: Patient Refused Doxazosin Mesylate (Doxazosin Mesylate 2 Mg Tablet) 4 mg PO BEDTIME [facility]; Protocol Last Admin: 12/02/23 20:33 Dose: 4 mg Documented By: ESTEBAN Finasteride (Finasteride 5 Mg Tablet) 5 mg PO DAILY [facility] Last Admin: 12/02/23 08:58 Dose: 5 mg Documented By: ARMIN Furosemide (Furosemide 20 Mg Tablet) 20 mg PO DAILY [facility]; Protocol Heparin Sodium (Porcine) (Heparin Sodium,Porcine 5,000 Unit/Ml Vial) 5,000 unit SUBCUT Q8H [facility] Last Admin: 12/03/23 05:43 Dose: 5,000 unit Documented By: RITO Heparin Sodium (Porcine) (Heparin Sodium,Porcine Flush 50 Units/5 Ml Syringe) 50 units IVFLUSH QSHIFT [facility] Last Admin: 12/03/23 01:02 Dose: 50 units Documented By: RITO Piperacillin Sod/Tazobactam (Sod 3.375 gm/ Sodium Chloride) 50 mls @ 100 mls/hr IV Q6H [facility] Last Infusion: 12/03/23 01:32 Dose: Infused Documented By: RITO Lidocaine (Lidocaine 4 % Patch Adh..Patch) 1 patch TRANSDERMA DAILY [facility]; Protocol Last Admin: 12/02/23 12:35 Dose: 1 patch Documented By: ARMIN Losartan Potassium (Losartan Potassium 50 Mg Tablet) 100 mg PO BEDTIME [facility]; Protocol Last Admin: 12/02/23 20:33 Dose: 100 mg Documented By: ESTEBAN Metoclopramide HCl (Metoclopramide Hcl 10 Mg/2 Ml Vial) 5 mg IVPUSH Q6H PRN PRN Reason: Nausea and Vomiting Metoprolol Tartrate (Metoprolol Tartrate 25 Mg Tablet) 25 mg PO BID [facility]; Protocol Last Admin: 12/02/23 20:33 Dose: 25 mg Documented By: ESTEBAN Nystatin (Nystatin Powder 15 Gm Bottle) 1 appl TOPICAL BID [facility]; Protocol Last Admin: 12/02/23 19:35 Dose: 1 appl Documented By: ESTEBAN Omeprazole (Omeprazole 20 Mg Pamella.) 20 mg PO BID@0630,1630 [facility] Last Admin: 12/03/23 05:43 Dose: 20 mg Documented By: RITO Ondansetron HCl (Ondansetron Hcl 4 Mg/2 Ml Vial) 4 mg IVPUSH Q8H PRN PRN Reason: nausea Last Admin: 12/01/23 04:19 Dose: 4 mg Documented By: WILFRED Oxycodone HCl (Oxycodone Hcl Immed Release 5 Mg Tablet) 5 mg PO Q6H PRN PRN Reason: Pain, Severe (Pain Scale 7-10) Last Admin: 12/03/23 05:44 Dose: 5 mg Documented By: RITO Pharmacy Consult (Consult Rx Parenteral Nutrition Ordering) 1 each MISCELLANE DAILY PRN PRN Reason: Consult order Simethicone (Simethicone 80 Mg Tab.Chew) 80 mg PO QIDWMHS [facility] Last Admin: 12/02/23 20:33 Dose: 80 mg Documented By: ESTEBAN Sodium Chloride (0.9 % Sodium Chloride Flush 3 Ml Syringe) 3 ml IVFLUSH QSHIFT [facility] Last Admin: 12/02/23 23:31 Dose: 3 ml Documented By: RITO Tramadol HCl (Tramadol Hcl 50 Mg Tablet) 50 mg PO Q6H PRN PRN Reason: Pain, Moderate(Pain Scale 4-6) Last Admin: 12/02/23 15:13 Dose: 50 mg Documented By: DEVONTETEKR Labs 12/02/23 09:56 12/03/23 06:35 Labs: Laboratory Results - last 24 hr 12/03/23 06:35 Anion Gap 12 Estim Creat Clear Calc 70.6 Estimated GFR > 60 Random Glucose 106 Calcium 8.8 Phosphorus 3.4 Magnesium 2.0 Albumin 2.9 L Assessment and Plan (1) Hematoma: Status: Acute (2) Aspiration pneumonia: Status: Acute (3) Acute blood loss anemia: Status: Acute Plan 73yo M with HTN, HLD, GERD, CAD s/p LEELA to RCA 2007 admitted to [facility] Surg for lap roosevelt done 11/10/23, returned to OR 11/11 for control of bleeder near cystic duct stump/hematoma evacuation/DONATO drain had syncopal episode likely due to vasovagal syndrome + acute blood loss anemia. 11/13 Aspiration PNA, 11/15 went into AFIB with RVR, converted after IV metoprolol and IV cardizem and remains in sinus since, 11/22 fever 101 Blood cultures + Parabacteroides distasonis. 11/24 Abscess drainage --E. Faecalis; 11/24 Urinary retention Reynolds, 11/25/23 Bilateral DVT of LE, IVC filter on11/26; 11/26 Bilateral PE sartedon Sub Cut Heparin d/t, 11/26 PPN d/t malnutrition; IV Lasix 11/27 for total body fluid overload . 11/29/23 PICC line inserted Parabacteroides distasonis bacteremia 2/2 from 1/16 Enteroccus Faecalis and Parabacteroides distasonis in abscess drain repeat culture 11/26 negative@48hrs Echo pending PICC line inserted 11/29/23 Vanco started 11/24, Vanco being stopped (11/29/22). Continue Zosyn started 11/22,Zosyn will cover both organisms, Id follow -recomended zosyn 2 more weeks,need iv zosyn for 2 more weeks - end date is 12/16/23, ID: Recommended to repeat CT abdomen to decide further antibiotic need within next 2 weeks outpatient with surgery. Bilateral LE DVTs and tyron P/E d/t imobility and unable to anticoagulate-remains at high risk for bleeding s/p IVC filter 11/26, Sub Hep started on 11/26, Bilateral LE DVTs and tyron P/E d/t imobility and unable to anticoagulate yet due to recent acute blood loss anemia (requiring multiple prbc transfusion),future need of anticogualtion and aspirin use will be decided outpatient with hematology and surgery.moniter cbc weekly . follow up with Dr Gray and surgery outpatient. Seen by hematology: full anticoagulation in the future if h/h stable and no further bleeding complications. Urinary retention 11/24 likely from BPH-Reynolds, uro consult--started and continued Doxazosin, finesteride. off reynolds (12/02/23),urinating afterwards as per staff ,continue flomax and finestride ,moniter pvr in rehab, consider outpatient urology follow up. cholelithiasis-- - s/p lap roosevelt 11/10, complicated by hematoma, s/p evacuation, drain. management per surgery paroxysmal AF--transient on 11/15, d/t post op state, no further episode, seen by card- Metoprolol 25 bid (also for HTN), hematology /surgery follow to about furture anticoagulation ( has dvt and Pulmonary embolism). acute blood loss anemia--related hematoma above- transfused 1u plts, 2u FFP, 6u pRBCs (total), last 2 units of 11/24, H/H stable (range around 9). aspiration PNA- amp-sul 11/13-11/16, amox-clav 11/16-11/18. dependent pleural effusions- due to postop fluid shifts, encourage IS vasovagal syncope- resolved. prerenal GUTIERREZ- improved with blood tranfuisons /fluids-moniter renal function and electrolytes . HTN-on continue metoprolol tartrate, amlodipine, losartan. CAD- ASA on hold ( anemia) - future use for aspirin and AC ( As above) -as per surgery/hematology outpatient. continue metoprolol. GERD- continue PPI edema -seems improving, -received IV Lasix earlier and patient seems to improving ,no need further lasix ( edema improving significantly- possible low albumin contributing) ,so currently no need for lasix. dvt prophylax -as per primary team. dispo: PT eval: STR suggested when acute issues resolved. Management being discussed with surgery on daily basis,Out of bed, ambulate with staft and or PT daily at least 3 times, dicussed with staff in detail. will sign off now ,please call us for any questions ,thanks for letting us participating in patient care. Total time managing care of this patient today: 35 minutes. Quality Stroke Does the patient have a stroke diagnosis?: No VTE Prior VTE?: No VTE Risk Level:: Medical - moderate - high VTE Device Contraindication: N/A - Device Ordered VTE Drug Contraindication: Treatment Not Indicated (Contraindicated in view of possible bleeding)
[2023-12-03] MEDS: Acetaminophen 325 MG TABLET 650 MG PO ×2 (07:54→13:58)
[2023-12-03] MEDS: Simethicone 80 MG TAB.CHEW PO ×2 (07:55→13:57)
[2023-12-03] MEDS: Furosemide 20 MG TABLET PO (07:55)
[2023-12-03] MEDS: amLODIPine Besylate 5 MG TABLET PO (07:55)
[2023-12-03] MEDS: Docusate Sodium 100 MG CAPSULE PO (07:55)
[2023-12-03] MEDS: Finasteride 5 MG TABLET PO (07:55)
[2023-12-03] MEDS: Metoprolol Tartrate 25 MG TABLET PO (07:55)
[2023-12-03 07:58] VITALS: BP 169/81; PULSE 83; RESP 18; TEMP 36.6; O2SAT 93
[2023-12-03] MEDS: Nystatin Powder 15 GM BOTTLE 1 APPL TOPICAL (08:22)
[2023-12-03 10:38] VITALS: BP 128/67; PULSE 83; RESP 20; TEMP 36.8; O2SAT 96
[2023-12-03 11:22] VITALS: BP 128/67; PULSE 83; O2SAT 96
--- NOTE | 2023-12-03 11:30 | MHC.CM.PN ---
Pt is medically cleared for D/C to STR at [facility] today at 2pm via BLS/[place]. Pt and his are in agreement with D/C plan.
--- NOTE | 2023-12-03 12:18 | PM.PNGS ---
Subjective Subjective Date of Service: 12/07/23 Interval history: oral intake much better, appears adequate able to ambulate down hallway Physical Exam Vital Signs: Vital Signs: Last Vital Signs Temp 98.3 F 12/03/23 10:38 Pulse 83 12/03/23 11:22 Resp 20 12/03/23 10:38 BP 128/67 12/03/23 11:22 Pulse Ox 96 12/03/23 11:22 O2 Del Method Room Air 12/03/23 10:38 O2 Flow Rate 2 11/28/23 04:00 Oxygen Flow Rate 2 11/30/23 14:12 BMI result Body Mass Index 33.4 Const: Other: sitting on recliner, General: comfortable Resp: Effort & Inspection: normal respiratory effort Cardio: Rate: regular rate GI: Other: soft; IR drain with old blood old DONATO drain site dry incision clean Objective Data Active Medications Acetaminophen (Acetaminophen 325 Mg Tablet) 650 mg PO Q6H PRN PRN Reason: Pain, Mild (Pain Scale 1-3) Last Admin: 12/03/23 07:54 Dose: 650 mg Documented By: MORAIMA Amlodipine Besylate (Amlodipine Besylate 5 Mg Tablet) 5 mg PO BEDTIME [facility]; Protocol Last Admin: 12/02/23 20:33 Dose: 5 mg Documented By: ESTEBAN Amlodipine Besylate (Amlodipine Besylate 5 Mg Tablet) 5 mg PO DAILY [facility]; Protocol Last Admin: 12/03/23 07:55 Dose: 5 mg Documented By: MORAIMA Docusate Sodium (Docusate Sodium 100 Mg Capsule) 100 mg PO BID [facility] Last Admin: 12/03/23 07:55 Dose: 100 mg Documented By: MORAIMA Doxazosin Mesylate (Doxazosin Mesylate 2 Mg Tablet) 4 mg PO BEDTIME [facility]; Protocol Last Admin: 12/02/23 20:33 Dose: 4 mg Documented By: ESTEBAN Finasteride (Finasteride 5 Mg Tablet) 5 mg PO DAILY [facility] Last Admin: 12/03/23 07:55 Dose: 5 mg Documented By: MORAIMA Heparin Sodium (Porcine) (Heparin Sodium,Porcine 5,000 Unit/Ml Vial) 5,000 unit SUBCUT Q8H [facility] Last Admin: 12/03/23 05:43 Dose: 5,000 unit Documented By: RITO Heparin Sodium (Porcine) (Heparin Sodium,Porcine Flush 50 Units/5 Ml Syringe) 50 units IVFLUSH QSHIFT [facility] Last Admin: 12/03/23 07:56 Dose: 50 units Documented By: MORAIMA Piperacillin Sod/Tazobactam (Sod 3.375 gm/ Sodium Chloride) 50 mls @ 100 mls/hr IV Q6H [facility] Last Infusion: 12/03/23 09:39 Dose: Infused Documented By: MORAIMA Lidocaine (Lidocaine 4 % Patch Adh..Patch) 1 patch TRANSDERMA DAILY [facility]; Protocol Last Admin: 12/03/23 08:21 Dose: Not Given Documented By: MORAIMA Non-Admin Reason: Patient Refused Losartan Potassium (Losartan Potassium 50 Mg Tablet) 100 mg PO BEDTIME [facility]; Protocol Last Admin: 12/02/23 20:33 Dose: 100 mg Documented By: ESTEBAN Metoclopramide HCl (Metoclopramide Hcl 10 Mg/2 Ml Vial) 5 mg IVPUSH Q6H PRN PRN Reason: Nausea and Vomiting Metoprolol Tartrate (Metoprolol Tartrate 25 Mg Tablet) 25 mg PO BID [facility]; Protocol Last Admin: 12/03/23 07:55 Dose: 25 mg Documented By: MORAIMA Nystatin (Nystatin Powder 15 Gm Bottle) 1 appl TOPICAL BID [facility]; Protocol Last Admin: 12/03/23 08:22 Dose: 1 appl Documented By: MORAIMA Omeprazole (Omeprazole 20 Mg Capsule.Dr) 20 mg PO BID@0630,1630 [facility] Last Admin: 12/03/23 05:43 Dose: 20 mg Documented By: RITO Ondansetron HCl (Ondansetron Hcl 4 Mg/2 Ml Vial) 4 mg IVPUSH Q8H PRN PRN Reason: nausea Last Admin: 12/01/23 04:19 Dose: 4 mg Documented By: WILFRED Oxycodone HCl (Oxycodone Hcl Immed Release 5 Mg Tablet) 5 mg PO Q6H PRN PRN Reason: Pain, Severe (Pain Scale 7-10) Last Admin: 12/03/23 05:44 Dose: 5 mg Documented By: RITO Pharmacy Consult (Consult Rx Parenteral Nutrition Ordering) 1 each MISCELLANE DAILY PRN PRN Reason: Consult order Simethicone (Simethicone 80 Mg Tab.Chew) 80 mg PO QIDWMHS [facility] Last Admin: 12/03/23 07:55 Dose: 80 mg Documented By: MORAIMA Sodium Chloride (0.9 % Sodium Chloride Flush 3 Ml Syringe) 3 ml IVFLUSH QSHIFT [facility] Last Admin: 12/03/23 07:56 Dose: 3 ml Documented By: MORAIMA Tramadol HCl (Tramadol Hcl 50 Mg Tablet) 50 mg PO Q6H PRN PRN Reason: Pain, Moderate(Pain Scale 4-6) Last Admin: 12/02/23 15:13 Dose: 50 mg Documented By: DEVONTETEKR Labs 12/02/23 09:56 12/03/23 06:35 Labs: Laboratory Results - last 24 hr 12/03/23 06:35 Anion Gap 12 Estim Creat Clear Calc 70.6 Estimated GFR > 60 Random Glucose 106 Calcium 8.8 Phosphorus 3.4 Magnesium 2.0 Albumin 2.9 L Procedures Date of Service Date of Service: 12/07/23 Progress Note: A&P Assessment and plan (1) Postoperative anemia due to acute blood loss: Status: Acute Assessment and Plan: has been doing much better the past week oral intake much improved exercise tolerance has improved Hg stable multiple discussions with pt and - he feels ready to go to rehab continue subQ heparim IV abx x 1 more week will see in office in 1-2 weeks dw plan with Hospitalist Time Spent With Patient Time: Total time managing care of this patient today ____ minutes. Quality Stroke Does the patient have a stroke diagnosis?: No VTE Prior VTE?: No VTE Risk Level:: Medical - moderate - high VTE Device Contraindication: N/A - Device Ordered VTE Drug Contraindication: Treatment Not Indicated (Contraindicated in view of possible bleeding)
--- NOTE | 2023-12-03 12:26 | PM.DS ---
DS: Providers Provider Date of Service: 12/03/23 Date of admission: 11/10/23 17:45 Primary care physician: Agustin Mullen MD Consults: 11/10/23 17:49 Consult to Hospitalist Routine Comment: Consulting Provider: Hospitalist Reason For Exam: syncope s/p lap cholecystectomy 11/15/23 12:58 Consult to Cardiology Routine Consulting Provider: [facility] Cardiovascular Services Reason for consultation: rapid afib, new onset. post-op hematoma evac 11/23/23 08:50 Consult to Infectious Diseases Routine Consulting Provider: [facility] Infectious Disease Reason for consultation: Gram-negative bacteremia Has provider been notified: No 11/24/23 07:59 Consult to Urology Routine Consulting Provider: Cheo Kenney Reason for consultation: Urinary retention Has provider been notified: No 11/25/23 18:11 Consult to Vascular Surgery Routine Consulting Provider: [facility] Vascular Services Reason for consultation: Bilateral DVT, ? needs IVC Has provider been notified: Yes 11/25/23 18:13 Consult to Hematology / Oncology Routine Consulting Provider: Blanca Hernadez Reason for consultation: Bilateral DVTs, help with management Has provider been notified: No 11/27/23 12:58 Consult to Wound Care Routine Reason for consultation: rash in between groin and buttocks DS: Diagnosis Discharge Diagnosis (1) Postoperative anemia due to acute blood loss: Status: Acute (2) Hematoma: Status: Acute (3) DVT (deep venous thrombosis): Status: Acute (4) Pulmonary embolism: Status: Acute DS: Summary Hospital Course Hospital Course: 73M underwent lap cholecystectomy on Nov 10, 2022 for symptomatic gallstones. He developed syncope in the PACU just before discharged. He was admitted therefore because of this. He had pain postop overnight with a drop in Hg to 9.3 He was transfused 1 unit with minimal increase.His CT showed a alrge hematoma around the liver. He remained tachycardic with a soft BP so he was brought back to the OR on Nov 11 for laparotomy. He had large clots in the abdomen with what appeared to be a steady nonarterial oozing area near the cystic duct stump. Clips were applied. He was transfused 2 unit intraop as well. He was transferred to [facility] ICU postop and was sent to [facility] on POD 1. His Hg was steady at 8. He remained stable but had poor exercise tolerance and oral intake. His DONATO drain did not have much output. He seemed to have very slow progress. He had a CT angio on Nov 15 which did not reveal a PE. I sent him for a ffup CT scan on which showed a large hematoma around the liver, so I arranged for him to have IR drain for this. Cultures showed growth of Enterobacter, and Bacteroides. He was started IV Zosyn for this. Since he continued to have poor exercise tolerance, he had a Doppler on Nov 24 which showed DVTs. He was transfused 2 more units on Nov 24 [address] His repeat CT showed multilobar PEs. He was started on on sub q heparin and had an IVC filter placed on Nov 26. He started to improve with regards to oral intake on Nov 27. He was on PPN as well for nutrition. He steadily improved with regards to exercise tolerance. He was able to tolerate room air with O2 supplementation. He continued to steadily improve the past week. He has remained afebrile. Multiple discussions with him and his were done throughout the week and he felt ready about going Rehab. He has been ambulatinmg with a walker down the hallway without difficulty. I removed his original DONATO drain yesterday. The plan is to continue with IV abx and subQ heparin at the Rehab institution. Time Attestation Discharge coordination time: Greater than 30 minutes Quality: Safe Use of Opioids Does Pt have an Active Cancer Diagnosis on the Problem List?: No Quality: Stroke Does the patient have a stroke diagnosis?: No Physical Exam Vital Signs: Vital Signs: Last Vital Signs Temp 98.3 F 12/03/23 10:38 Pulse 83 12/03/23 11:22 Resp 20 12/03/23 10:38 BP 128/67 12/03/23 11:22 Pulse Ox 96 12/03/23 11:22 O2 Del Method Room Air 12/03/23 10:38 O2 Flow Rate 2 11/28/23 04:00 Oxygen Flow Rate 2 11/30/23 14:12 BMI result Body Mass Index 33.4 Const: General: comfortable and no acute distress Resp: Effort & Inspection: normal respiratory effort Cardio: Rate: regular rate GI: Other: incision well healed; IR drain with DONATO on right side Palpation (GI): Soft to palpation, not firm and no guarding Extrem: Right upper extremity: no edema DS: Data Data Completed and Pending Completed studies during hospitalization [Text1]: Pending at discharge 11/10/23 10:09 Surgical [PTH] Routine Labs on day of discharge: Laboratory Results - last 24 hr 12/03/23 06:35 Sodium 140 Potassium 3.3 Chloride 106 Carbon Dioxide 25 Anion Gap 12 BUN 10 Creatinine 1.00 Estim Creat Clear Calc 70.6 Estimated GFR > 60 Random Glucose 106 Calcium 8.8 Phosphorus 3.4 Magnesium 2.0 Albumin 2.9 L Discharge Plan Discharge Anticipated Discharge Date/Time: 12/03/23 12:22 Patient Disposition: Xfer Inpatient Rehab Fac Discharge Diagnosis: postop bleeding after cholecystectyomy Referrals: [facility] [Outside] - 1 Week Agustin Mullen MD [Primary Care Provider] - 1 Week Ismael Dutta MD [Physician] - 1 Week Eric Gray MD [Physician] - 1 Week Discharge Medications: New oxycodone 5 mg tablet 5 mg PO Q4H PRN (Reason: pain) Qty: 25 0RF Rx Instructions: Partial Fill upon patient request. metoprolol tartrate 25 mg Tablet 25 mg PO BID Qty: 60 0RF Protocol: Hold for SBP/HR < HOLD for SBP < : 90 HOLD for HR < : 60 Rx Instructions: Replaces prior dose of 12.5 mg bid furosemide 20 mg Tablet 20 mg PO DAILY Qty: 30 0RF Protocol: Hold for SBP< HOLD for SBP < : 90 doxazosin 2 mg Tablet 4 mg PO BEDTIME Qty: 1 0RF Protocol: Hold for SBP< HOLD for SBP < : 90 finasteride 5 mg Tablet 5 mg PO DAILY Qty: 30 0RF Zosyn in dextrose (iso-osm) 3.375 gram/50 mL piggyback 3.375 g IV Q6H 14 Days Rx Instructions: end date 12/16/23 heparin (porcine) 5,000 unit/mL syringe 5,000 unit subcut Q8H Qty: 24 3RF amlodipine 5 mg Tablet 5 mg PO DAILY Qty: 30 0RF Protocol: Hold for SBP< HOLD for SBP < : 90 Continued amlodipine 5 mg tablet 5 mg PO BEDTIME losartan 100 mg tablet 100 mg PO BEDTIME atorvastatin 20 mg tablet 20 mg PO Q OTHER DAY omeprazole 40 mg capsule,delayed release(DR/EC) 40 mg PO BEDTIME tramadol 50 mg tablet 50 mg PO BID PRN (Reason: Pain) aspirin [Adult Low Dose Aspirin] 81 mg tablet,delayed release (DR/EC) 81 mg PO DAILY acetaminophen 500 mg tablet 500 mg PO Q6H PRN (Reason: Pain) omega 4-lec-qke-fish oil [Fish Oil] 1,000 mg (120 mg-180 mg) capsule 1 cap PO DAILY glucosamine-chondroitin 500-400 mg capsule 1 cap PO DAILY Rx Instructions: give with meal/snack magnesium oxide 500 mg tablet 500 mg PO DAILY mecobalamin (vitamin B12) 2,500 mcg tablet,chewable 3,000 mcg PO DAILY cholecalciferol (vitamin D3) 25 mcg (1,000 unit) capsule 25 mcg PO DAILY Discontinued metoprolol tartrate 25 mg tablet 12.5 mg PO BID Discharge Orders: Discharge Order (Routine); Ordered 12/03/23 Ordered By: Ismael Dutta Diet: Advance to usual diet Activity on Discharge: No heavy lifting Stand Alone Forms: Patient Portal Discharge page Other Ambulatory Orders: Basic Metabolic Panel (Routine) Timeframe: 1 Week Facility: [facility] - Location: Laboratory Ordered By: Simona Ford Complete Blood Count no Diff (Routine) Timeframe: 1 Week Facility: [facility] - Location: Laboratory Ordered By: Simona Ford Activity Restrictions/Additional Instructions: empty drain 2-3 times a day and record If the incision area is tender, you may apply an ice pack for short intervals (No more than 20 minutes on, followed by at least 20 minutes off). Do not apply heat. Do not use creams, lotions, or topical antibiotics unless instructed to do so by your surgeon. These can cause infection or allergic reaction. No lifting more than 20 lbs Okay to shower No strenuous activities Call the office for follow-up in1- 2 weeks - with Dr. Dutta Call Your Doctor If: -Your temperature exceeds 101.5? F -You experience excessive pain or swelling -You have an unexpected reaction to medication -You have excessive bleeding -You experience continued vomiting/nausea -Your incision begins to separate -Your incision shows signs of infection such as increased redness, swelling, excessive pain, drainage (light blood or clear fluid is normal) or heat Care Plan Goals: Bilateral LE DVTs and tyron P/E d/t imobility and unable to anticoagulate yet due to recent acute blood loss anemia (requiring multiple prbc transfusion),future need of anticogualtion and aspirin use will be decided outpatient with hematology and surgery. moniter cbc weekly . follow up with Dr Gray and surgery outpatient. acute blood loss anemia--related hematoma above- transfused 1u plts, 2u FFP, 6u pRBCs (total), last 2 units of 11/24, H/H is around 9/27 range . Urinary retention -reynolds out ,urinating afterwards as per staff ,continue flomax and finestride ,moniter pvr in rehab, consider outpatient urology follow up. prerenal GUTIERREZ- resolved after transfusion + fluid resuscitation.moniter renal function and electrolytes . Parabacteroides distasonis bacteremia,Enteroccus Faecalis and Parabacteroides distasonis in abscess drain: need iv zosyn for 2 more weeks - end date is 12/16/23, ID: Recommended to repeat CT abdomen to decide further antibiotic need within next 2 weeks outpatient with surgery. And For Paf : continue metropolol-follow up cardiology outpatient ,d/w cardiology: patient seems to improving ,no need further lasix ( edema improving significantly- possible low albumin contributing) ,so currently no need for lasix. htn : on amlodipine 5 mg po bid ,losaratn,metorpolol Health Concerns: as above. Plan of Treatment: as above. Assessment: doing well now Discharge Date/Time: 12/03/23 14:45
== END 2023-12-03 14:45 | DRG 417 ==
LOC: HO.ED 16:55 → HO.EDOVER 17:51 → HO.ICU 11-11 14:42 → HO.IMC 11-12 12:52
PROVIDERS: Internal Medicine; Internal Medicine Medical Oncology; Internal Medicine Pulmonary Disease; Physician Assistant; Physician Assistant Surgical; Surgery; Surgery Vascular Surgery; Absent Provider Surgery; Admitting Provider Surgery; Emergency Provider Emergency Medicine Emergency Medical Services; PCP Family Medicine; Visit Provider Surgery
PROC: 0FT44ZZ Resection of Gallbladder, Percutaneous Endoscopic Approach (ICD-10-PCS; CPT 47562; principal; 2023-11-10 09:10)
PROC: 0JCC0ZZ Extirpation of Matter from Pelvic Region Subcutaneous Tissue and Fascia, Open Approach (ICD-10-PCS; CPT 49000; principal; 2023-11-11 11:30)
PROC: 06H03DZ Insertion of Intraluminal Device into Inferior Vena Cava, Percutaneous Approach (ICD-10-PCS; principal; 2023-11-26 09:00)
PROC: 02HV33Z Insertion of Infusion Device into Superior Vena Cava, Percutaneous Approach (ICD-10-PCS; principal; 2023-11-29 08:00)
DX: K80.10 Calculus of gallbladder with chronic cholecystitis without obstruction (principal); I26.94 Multiple subsegmental thrombotic pulmonary emboli without acute cor pulmonale; J69.0 Pneumonitis due to inhalation of food and vomit; D62 Acute posthemorrhagic anemia; K91.870 Postprocedural hematoma of a digestive system organ or structure following a digestive system procedure; N17.9 Acute kidney failure, unspecified; J91.8 Pleural effusion in other conditions classified elsewhere; J98.11 Atelectasis; I82.443 Acute embolism and thrombosis of tibial vein, bilateral; R78.81 Bacteremia; T81.43XA Infection following a procedure, organ and space surgical site, initial encounter; R00.8 Other abnormalities of heart beat; N40.1 Benign prostatic hyperplasia with lower urinary tract symptoms; R33.8 Other retention of urine; B95.2 Enterococcus as the cause of diseases classified elsewhere; I10 Essential (primary) hypertension; Y83.8 Other surgical procedures as the cause of abnormal reaction of the patient, or of later complication, without mention of misadventure at the time of the procedure; I48.0 Paroxysmal atrial fibrillation; E78.5 Hyperlipidemia, unspecified; K21.9 Gastro-esophageal reflux disease without esophagitis; Z95.5 Presence of coronary angioplasty implant and graft; I25.119 Atherosclerotic heart disease of native coronary artery with unspecified angina pectoris; Z87.891 Personal history of nicotine dependence; Z79.82 Long term (current) use of aspirin; Z79.899 Other long term (current) drug therapy
CPT/HCPCS: 36415; 36573; 37191; 71045; 71275; 74018; 74176; 74177; 75989; 80048; 80053; 80202; 82040; 82271; 82550; 82803; 82947; 83605; 83735; 84100; 84132; 84478; 84484; 85014; 85018; 85025; 85027; 85384; 85610; 85730; 86850; 86900; 86901; 86923; 87040; 87070; 87073; 87076; 87077; 87185; 87186; 87205; 88304; 93005; 93306; 93308; 93970; 97116; 97162; 97530; 99024; 99285; 99499; A4649; C1729; C1751; C1758; C1769; C1880; C9113; J0131; J0295; J0330; J0665; J0690; J1100; J1170; J1642; J1644; J1940; J2250; J2270; J2405; J2543; J2550; J2704; J2795; J3010; J3370; J3371; J3475; J7120; P9016; P9017; P9047; P9073; Q9957; Q9967

== ENCOUNTER 2023-11-10 17:45 | Outpatient (BNV) | payer MEDICARE, SELFPAY | END 2023-11-10 21:12 | PROVIDERS: Absent Provider Surgery; Admitting Provider Surgery; Emergency Provider Emergency Medicine Emergency Medical Services; PCP Family Medicine; Visit Provider Internal Medicine Cardiovascular Disease | DX: I49.3 Ventricular premature depolarization (principal); I49.1 Atrial premature depolarization | CPT/HCPCS: 93010 ==

== ENCOUNTER 2023-11-10 17:45 | Outpatient (BNV) | payer MEDICARE, SELFPAY | END 2023-11-25 14:24 | PROVIDERS: Absent Provider Surgery; Admitting Provider Surgery; Emergency Provider Emergency Medicine Emergency Medical Services; PCP Family Medicine; Visit Provider Internal Medicine | DX: I49.3 Ventricular premature depolarization (principal); R94.31 Abnormal electrocardiogram [ECG] [EKG] | CPT/HCPCS: 93010 ==

== ENCOUNTER 2023-11-10 17:45 | Outpatient (BNV) | payer MEDICARE, SELFPAY | END 2023-11-29 07:00 | PROVIDERS: Absent Provider Surgery; Admitting Provider Surgery; Emergency Provider Emergency Medicine Emergency Medical Services; PCP Family Medicine; Visit Provider Internal Medicine Cardiovascular Disease | DX: R78.81 Bacteremia (principal); I26.99 Other pulmonary embolism without acute cor pulmonale | CPT/HCPCS: 93308 ==

== ENCOUNTER 2023-11-10 17:45 | Outpatient (BNV) | payer MEDICARE, SELFPAY | END 2023-11-15 07:00 | PROVIDERS: Absent Provider Surgery; Admitting Provider Surgery; Emergency Provider Emergency Medicine Emergency Medical Services; PCP Family Medicine; Visit Provider Internal Medicine Cardiovascular Disease | DX: I48.0 Paroxysmal atrial fibrillation (principal) | CPT/HCPCS: 93010; 93306 ==

== ENCOUNTER 2023-11-10 17:45 | Outpatient (BNV) | payer MEDICARE, SELFPAY | END 2023-11-24 10:52 | PROVIDERS: Absent Provider Surgery; Admitting Provider Surgery; Emergency Provider Emergency Medicine Emergency Medical Services; PCP Family Medicine; Visit Provider Student in an Organized Health Care Education/Training Program | DX: K75.0 Abscess of liver (principal) | CPT/HCPCS: 49405 ==

== ENCOUNTER → 2023-11-10 17:45 | Outpatient (BNV) | payer MEDICARE, SELFPAY | PROVIDERS: Absent Provider Surgery; Admitting Provider Surgery; Emergency Provider Emergency Medicine Emergency Medical Services; PCP Family Medicine; Visit Provider Physician Assistant | DX: R78.81 Bacteremia (principal); T14.8XXA Other injury of unspecified body region, initial encounter; J69.0 Pneumonitis due to inhalation of food and vomit; D62 Acute posthemorrhagic anemia; R79.89 Other specified abnormal findings of blood chemistry | CPT/HCPCS: 99222; 99232; 99233; 99499 ==

== ENCOUNTER → 2023-11-10 17:45 | Outpatient (BNV) | payer MEDICARE, SELFPAY | PROVIDERS: Absent Provider Surgery; Admitting Provider Surgery; Emergency Provider Emergency Medicine Emergency Medical Services; PCP Family Medicine; Visit Provider Surgery | DX: D62 Acute posthemorrhagic anemia (principal); T14.8XXA Other injury of unspecified body region, initial encounter; I82.443 Acute embolism and thrombosis of tibial vein, bilateral; I26.99 Other pulmonary embolism without acute cor pulmonale | CPT/HCPCS: 35840; 47562; 99024; 99222; 99499 ==

== ENCOUNTER → 2023-11-10 17:45 | Outpatient (BNV) | payer MEDICARE, SELFPAY | PROVIDERS: Absent Provider Surgery; Admitting Provider Surgery; Emergency Provider Emergency Medicine Emergency Medical Services; PCP Family Medicine; Visit Provider Internal Medicine Cardiovascular Disease | DX: I48.0 Paroxysmal atrial fibrillation (principal) | CPT/HCPCS: 99222 ==

== ENCOUNTER → 2023-11-10 17:45 | Outpatient (BNV) | payer MEDICARE, SELFPAY | PROVIDERS: Absent Provider Surgery; Admitting Provider Surgery; Emergency Provider Emergency Medicine Emergency Medical Services; PCP Family Medicine; Visit Provider Internal Medicine | DX: K75.0 Abscess of liver (principal) | CPT/HCPCS: 99222; 99232 ==

== ENCOUNTER → 2023-11-10 17:45 | Outpatient (BNV) | payer MEDICARE, SELFPAY | PROVIDERS: Absent Provider Surgery; Admitting Provider Surgery; Emergency Provider Emergency Medicine Emergency Medical Services; PCP Family Medicine; Visit Provider Internal Medicine Pulmonary Disease | DX: R55 Syncope and collapse (principal) | CPT/HCPCS: 99499 ==

== ENCOUNTER → 2023-11-10 17:45 | Outpatient (BNV) | payer MEDICARE, SELFPAY | PROVIDERS: Absent Provider Surgery; Admitting Provider Surgery; Emergency Provider Emergency Medicine Emergency Medical Services; PCP Family Medicine; Visit Provider Surgery Vascular Surgery | DX: I82.443 Acute embolism and thrombosis of tibial vein, bilateral (principal) | CPT/HCPCS: 37191; 99222; 99232 ==

== ENCOUNTER → 2023-11-10 17:45 | Outpatient (BNV) | payer MEDICARE, SELFPAY | PROVIDERS: Absent Provider Surgery; Admitting Provider Surgery; Emergency Provider Emergency Medicine Emergency Medical Services; PCP Family Medicine; Visit Provider Internal Medicine Medical Oncology | DX: I82.401 Acute embolism and thrombosis of unspecified deep veins of right lower extremity (principal); I82.402 Acute embolism and thrombosis of unspecified deep veins of left lower extremity | CPT/HCPCS: 99222 ==

== ENCOUNTER → 2023-11-10 17:45 | Outpatient (BNV) | payer MEDICARE, SELFPAY | PROVIDERS: Absent Provider Surgery; Admitting Provider Surgery; Emergency Provider Emergency Medicine Emergency Medical Services; PCP Family Medicine; Visit Provider Urology | DX: R33.9 Retention of urine, unspecified (principal) | CPT/HCPCS: 99222 ==

== ENCOUNTER 2023-12-22 14:00 | Outpatient (AMB) | payer MEDICARE, SELFPAY ==
--- NOTE | 2023-12-22 14:01 | MHC.OFFVIS ---
Intake Intake Visit Reasons: exp laparotomy Intake Note: This patient presents for a post-op assessment status post drain, exploratory laparotomy. Patient c/o; reports output of drain 5 mL. 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 He had laparoscopic cholecystectomy last 11/10/2023. He had postop bleeding and underwent laparotomy last 11/11/2023 for control of bleeders. His postop course was also complicated by development of DVT and PE. He was therefore in the hospital for a prolonged period of time He has been in rehab since then. According to him and his , he has been doing very well. He has good oral intake. He has started to gain back weight He seems to have had reached goals of physical therapy. He still has a drain in place because of his large intra-abdominal hematoma. He denies any significant pain. He denies any fever or chills. [facility] Medical History Pulmonary embolism Postoperative anemia due to acute blood loss [place] disease Hematoma GERD (gastroesophageal reflux disease) Elevated cholesterol Low back pain Depression CAD (coronary artery disease) Stable angina Gallstones Scoliosis Carpal tunnel syndrome C2 cervical fracture Arthritis Hypertension Surgical History S/P laparoscopic cholecystectomy Hx of carpal tunnel repair History of esophagogastroduodenoscopy (EGD) H/O colonoscopy History of cardiac cath Family History Father HTN (hypertension) Cardiac arrest Mother HTN (hypertension) Stroke Sister HTN (hypertension) Cancer Social History Household Members: Spouse Household Members Other:: tereza Housing: House Are you a primary career development consultant to a significant other at home: No Do you presently have visiting nurse or other home services: No Unable to assess alcohol history related to: Unable to respond Alcohol intake: never Patient Tobacco Use Status: Former Tobacco user Quit Date: 1970 Tobacco use type: Cigarette Years Smoked: 3 +/- service: Yes Review of Systems Const Denies chills and Denies fever(s) Card Denies chest pain Resp Denies cough Denies difficulty urinating Physical Exam Const Other: On wheelchair, looks well General: comfortable and no acute distress Resp Effort & Inspection: normal respiratory effort Cardio Rate: regular rate GI Other: Incision well healed DONATO drain in place, with about 20 cc of thick output, whitish red Palpation (GI): Soft to palpation, not firm, nontender and no guarding Assessment & Plan Assessment & Plan (1) Hematoma: Code(s): T14.8XXA - Other injury of unspecified body region, initial encounter Plan: He is here for follow-up after laparotomy for postop bleeding after cholecystectomy. He had a large intra-abdominal hematoma. He still has significant output from the drain. I am not going to pull it out therefore. He has been off antibiotics He looks well. He has been able to ambulate and says that he has reach goals with physical therapy He might be able to be discharged to his home next week I will see him in the office in about 2 weeks and see how much the drain is putting out. If there is minimal output then we will plan on removing this. Coding Level of Care Code Global (63907) Diagnoses Hematoma T14.8XXA
== END 2023-12-22 14:21 | disposition home or self-care (01) ==
PROVIDERS: PCP Family Medicine; Visit Provider Surgery
DX: T14.8XXA Other injury of unspecified body region, initial encounter (principal)
CPT/HCPCS: 99024

== ENCOUNTER → 2023-12-22 14:00 | Outpatient (BNVA) | payer MEDICARE, SELFPAY | PROVIDERS: PCP Family Medicine; Visit Provider Surgery | DX: L76.32 Postprocedural hematoma of skin and subcutaneous tissue following other procedure (principal) | CPT/HCPCS: 99212 ==

== ENCOUNTER 2024-01-05 13:07 | Outpatient (AMB) | payer MEDICARE, SELFPAY ==
--- NOTE | 2024-01-05 13:08 | A.OFFVIS_ITS ---
Intake Intake Visit Reasons: 2 week follow-up exp laparotomy, drain removal Intake Note: This patient presents for a follow-up assessment for drain removal. Pt c/o; reports upset stomach, reports diarrhea. 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 Accompanied by: Spouse Allergies No Known Allergies Allergy (Verified 01/05/24 13:15) Medication List - Last Reconciled 01/05/24 by Ismael Dutta MD acetaminophen 500 mg PO Q6H PRN amlodipine 5 mg PO BEDTIME amlodipine 5 mg See Protocol PO DAILY aspirin (Adult Low Dose Aspirin) 81 mg PO DAILY atorvastatin 20 mg PO Q OTHER DAY cholecalciferol (vitamin D3) 25 mcg PO DAILY doxazosin 4 mg See Protocol PO BEDTIME finasteride 5 mg PO DAILY furosemide 20 mg See Protocol PO DAILY glucosamine-chondroitin 500-400 mg 1 cap PO DAILY heparin (porcine) 5,000 units subcut Q8H losartan 100 mg PO BEDTIME magnesium oxide 500 mg PO DAILY mecobalamin (vitamin B12) 3,000 mcg PO DAILY metoprolol tartrate 25 mg See Protocol PO BID omega 6-ooz-skz-fish oil 1,000 mg (120 mg-180 mg) (Fish Oil) 1 cap PO DAILY omeprazole 40 mg PO BEDTIME oxycodone 5 mg PO Q4H PRN sjxycyyqbtat-yfajvznccz-lncwtx 3.375 gram/50 mL (Zosyn) 3.375 grams (56.25 mL) IV Q6H 14 days tramadol 50 mg PO BID PRN HPI 2 week follow-up exp laparotomy, drain removal HPI Details He is here for follow-up for his drain. He had undergone laparoscopic cholecystectomy in November 10 and had to go back to the OR for bleeding on postop day 1. He had evacuation of hematoma. I had a drain placed the following week because of this persistent hematoma. He is back home and has been doing very well according to his . He has been able to ambulate independently although he uses a walker when he is outside the house. He has good oral intake. He has gained 2 lb since I last saw him. He feels well over all. His says that there has been practically no output from his stoma anymore for several days now. [facility] Medical History Pulmonary embolism Postoperative anemia due to acute blood loss [place] disease Hematoma GERD (gastroesophageal reflux disease) Elevated cholesterol Low back pain Depression CAD (coronary artery disease) Stable angina Gallstones Scoliosis Carpal tunnel syndrome C2 cervical fracture Arthritis Hypertension Surgical History S/P laparoscopic cholecystectomy Hx of carpal tunnel repair History of esophagogastroduodenoscopy (EGD) H/O colonoscopy History of cardiac cath Family History Father HTN (hypertension) Cardiac arrest Mother HTN (hypertension) Stroke Sister HTN (hypertension) Cancer Social History Household Members: Spouse Household Members Other:: tereza Housing: House Are you a primary eye care professional to a significant other at home: No Do you presently have visiting nurse or other home services: No Unable to assess alcohol history related to: Unable to respond Alcohol intake: never Patient Tobacco Use Status: Former Tobacco user Quit Date: 1970 Tobacco use type: Cigarette Years Smoked: 3 +/- service: Yes Review of Systems Const Denies chills and Denies fever(s) Card Denies chest pain Resp Denies cough GI Details: Describes reflux symptoms but good oral intake Physical Exam Const General: comfortable and no acute distress Resp Effort & Inspection: normal respiratory effort GI Other: Soft, nondistended, no guarding, rebound, incisions well healed, DONATO drain in place with no significant output Assessment & Plan Assessment & Plan (1) S/P laparoscopic cholecystectomy: Code(s): Z90.49 - Acquired absence of other specified parts of digestive tract Plan: He is doing very well. I removed his drain without any difficulties He feels well overall. I will see him again in the office in about a month He has not on any blood thinner. He is PE and DVT were provoked because of him being bed-bound at that time. Coding Level of Care Code Global (15441) Diagnoses S/P laparoscopic cholecystectomy Z90.49
== END 2024-01-05 13:31 | disposition home or self-care (01) ==
PROVIDERS: PCP Family Medicine; Visit Provider Surgery
DX: Z90.49 Acquired absence of other specified parts of digestive tract (principal)
CPT/HCPCS: 99024

== ENCOUNTER → 2024-01-05 13:07 | Outpatient (BNVA) | payer MEDICARE, SELFPAY | PROVIDERS: PCP Family Medicine; Visit Provider Surgery | DX: Z90.49 Acquired absence of other specified parts of digestive tract (principal) | CPT/HCPCS: 99212 ==

== ENCOUNTER 2024-01-10 10:05 | Outpatient (REF) | payer MEDICARE, SELFPAY ==
[2024-01-10 10:38] LABS: MANUAL DIFF FLAG NO
[2024-01-10 11:02] LABS: Basophils Absolute Auto 0.1 X10*3/uL (0.0-0.2); Basophils Percent Auto 0.8 % (0-2); Eosinophils Absolute Auto 0.2 X10*3/uL (0.0-0.4); Eosinophils Percent Auto 3.7 % (0-4); Imm Gran Abs Auto 0.04 X10*3/uL (0.00-0.03); Imm Gran Pct Auto 0.6 % (0.0-0.4); Lymphocytes Absolute Auto 1.5 X10*3/uL (1.2-4.9); Lymphocytes Percent Auto 24.1 % (20-40); Mean Corpuscular HGB Conc 33.5 g/dl (31.0-36.0); Mean Corpuscular Hemoglobin 31.7 pg (27.0-33.0); Mean Corpuscular Volume 94.6 fL (80.0-98.0); Mean Platelet Volume 9.4 fL (9.4-12.4); Monocytes Absolute Auto 0.6 X10*3/uL (0.1-1.2); Monocytes Percent Auto 9.4 % (2-11); Neutrophils Absolute Auto 3.9 x10*3/uL (2.0-8.3); Neutrophils Percent Auto 61.4 % (45-73); Platelet Count 256 X10*3/uL (160-400); Red Blood Count 4.23 X10*6/uL (4.60-5.80); Red Cell Distribution Width 15.3 % (11.0-16.0); White Blood Count 6.3 X10*3/uL (4.8-10.8)
[2024-01-10 11:04] LABS: Hemoglobin 13.4 g/dl (14.0-18.0)
[2024-01-10 11:36] LABS: Alanine Aminotransferase 29 U/L (0-40); Albumin Level 3.9 g/dL (3.5-5.0); Alkaline Phosphatase 127 U/L (39-117); Anion Gap 11 (12-20); Aspartate Amino Transferase 25 U/L (5-37); Bilirubin Total 0.8 mg/dL (0.0-1.0); Blood Urea Nitrogen 12 mg/dL (9-16); Calcium 9.9 mg/dL (8.4-10.2); Carbon Dioxide 27 mmol/L (22-29); Chloride 107 mmol/L (96-108); Estimated Glomerular Filt Rate > 60; Glucose Random 105 mg/dL (60-115); Potassium 4.6 mmol/L (3.3-5.1); Sodium 140 mmol/L (135-145); Total Protein 7.5 g/dL (6.5-8.0)
== END 2024-01-10 10:06 | disposition home or self-care (01) ==
LOC: HO.LAB 10:05
PROVIDERS: PCP Family Medicine; Visit Provider Family Medicine
DX: D64.9 Anemia, unspecified (principal); R53.1 Weakness
CPT/HCPCS: 36415; 80053; 85025

== ENCOUNTER 2024-02-02 09:53 | Outpatient (AMB) | payer MEDICARE, SELFPAY ==
--- NOTE | 2024-02-02 09:59 | A.OFFVIS_ITS ---
Intake Intake Visit Reasons: s/p exp laparotomy, drain removal-1 mo follow-up Intake Note: This patient presents for a follow-up status post exploratory laparotomy, drain removal-1 month follow-up. Pt c/o; reports no complaints at this time. 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 He had the drain removed last month. He is doing very well and has been home f or 4 weeks. He says that he has gained weight. He has good oral intake. He has been doing more with regards to physical activity. He feels well overall. [facility] Medical History Pulmonary embolism Postoperative anemia due to acute blood loss [place] disease Hematoma GERD (gastroesophageal reflux disease) Elevated cholesterol Low back pain Depression CAD (coronary artery disease) Stable angina Gallstones Scoliosis Carpal tunnel syndrome C2 cervical fracture Arthritis Hypertension Surgical History S/P laparoscopic cholecystectomy Hx of carpal tunnel repair History of esophagogastroduodenoscopy (EGD) H/O colonoscopy History of cardiac cath Family History Father HTN (hypertension) Cardiac arrest Mother HTN (hypertension) Stroke Sister HTN (hypertension) Cancer Social History Household Members: Spouse Household Members Other:: tereza Housing: House Are you a primary medical care manager to a significant other at home: No Do you presently have visiting nurse or other home services: No Unable to assess alcohol history related to: Unable to respond Alcohol intake: never Patient Tobacco Use Status: Former Tobacco user Quit Date: 1970 Tobacco use type: Cigarette Years Smoked: 3 +/- service: Yes Review of Systems Const Denies chills and Denies fever(s) Card Denies chest pain, Denies dyspnea and Denies dyspnea on exertion Resp Denies cough, Denies dyspnea and Denies dyspnea on exertion GI Denies hematochezia and Denies change in bowel habits Denies hematuria and Denies difficulty urinating Musc Denies back pain and Denies limited range of motion Neuro Denies focal weakness and Denies convulsions Psych Denies depression and Denies mood swings Physical Exam Const Other: Looks well General: comfortable and no acute distress Resp Effort & Inspection: normal respiratory effort Cardio Rate: regular rate GI Other: Incision well healed Palpation (GI): Soft to palpation, not firm and nontender Assessment & Plan Assessment & Plan (1) S/P laparoscopic cholecystectomy: Code(s): Z90.49 - Acquired absence of other specified parts of digestive tract Plan: He had a complicated postop course. He is now doing very well. He is almost back to regular level of activities. He has gained weight since I last saw him. He looks well overall He is allowed to return to normal level of activities. I told him he can drive as well. I can see him for another postop check in about 3 months I discussed the above with his who was present. Coding Level of Care Code Global (52025) Diagnoses S/P laparoscopic cholecystectomy Z90.49
== END 2024-02-02 10:12 | disposition home or self-care (01) ==
PROVIDERS: PCP Family Medicine; Visit Provider Surgery
DX: Z90.49 Acquired absence of other specified parts of digestive tract (principal)
CPT/HCPCS: 99024

== ENCOUNTER → 2024-02-02 09:53 | Outpatient (BNVA) | payer MEDICARE, SELFPAY | PROVIDERS: PCP Family Medicine; Visit Provider Surgery | DX: Z48.815 Encounter for surgical aftercare following surgery on the digestive system (principal); Z90.49 Acquired absence of other specified parts of digestive tract | CPT/HCPCS: 99212 ==

== ENCOUNTER 2024-02-18 04:00 | Inpatient (IN) | payer MEDICARE, SELFPAY ==
[2024-02-18] VITALS (17 sets, daily range): BP systolic 119–180; BP diastolic 72–111; PULSE 90–111; RESP 8–24; TEMP 36.9–37.4; O2SAT 88–97; BMI 29.1; BMI 29.5
--- NOTE | 2024-02-18 | ECG_ITS ---
Test Reason : SYCOPE Blood Pressure : / mmHG Vent. Rate : 098 BPM Atrial Rate : 098 BPM P-R Int : 162 ms QRS Dur : 096 ms QT Int : 354 ms P-R-T Axes : 043 009 052 degrees QTc Int : 451 ms Normal sinus rhythm Possible Left atrial enlargement Inferior infarct , age undetermined Anteroseptal infarct (cited on or before 13-OCT-2023) Abnormal ECG When compared with ECG of 25-NOV-2023 14:24, Premature ventricular complexes are no longer Present Inferior infarct is now Present Referred By: Generic ED Physician Electronically Signed By:Te Monzon
--- NOTE | ~2024-02-18 | CT_ITS ---
EXAMINATION: CT ABDOMEN AND PELVIS WITH CONTRAST CLINICAL INFORMATION: Abdominal pain. COMPARISON: 11/23/2023. TECHNIQUE: Multidetector volumetric images were obtained from the superior aspect of the liver through the pubic symphysis following administration 85 mL of Omnipaque 350 intravenous contrast. Sagittal and coronal reformatted images were obtained on the technologist's workstation. Oral contrast: No This CT examination was performed using dose optimization techniques as appropriate, variously including the following: *Automated exposure control *Adjustment of mA and/or kV according to patient size (this includes techniques or standardized protocols for targeted exams where dose is matched to indication/reason for exam; i.e. extremities or head) *Use of iterative reconstruction technique DLP: 566 mGy-cm FINDINGS: LUNG BASES: There is scarring and/or atelectatic change at the lung bases. LIVER, GALLBLADDER, AND BILIARY TREE: The liver is normal in size, shape, and attenuation. No focal hepatic lesion or biliary ductal dilatation is present. There has been a prior cholecystectomy. The common bile duct measures up to 8 mm. There is a questionable hyperdensity within the distal common bile duct measuring approximately 3 mm. PANCREAS: There is moderate peripancreatic infiltration/fluid. SPLEEN: Unremarkable. ADRENAL GLANDS: Unremarkable. KIDNEYS AND URETERS: The kidneys are normal in size, shape, and attenuation. No hydronephrosis, hydroureter, or calculi seen. No perinephric stranding. Multiple subcentimeter left-sided renal hypodensities likely small cysts. BLADDER: Unremarkable. GASTROINTESTINAL TRACT: There are diverticula of the descending and the sigmoid colon without diverticulitis. ABDOMINAL WALL: No significant hernia is appreciated. LYMPH NODES: Normal. VASCULAR: IVC filter is in place. There is atherosclerotic plaque of the abdominal aorta and proximal branches. PELVIC VISCERA: The prostate gland is enlarged measuring 8.1 x 6 x 6.5 cm. OSSEOUS STRUCTURES: There is diffuse thoracolumbar disc degenerative change. CT/CT abdomen pelvis w IV con IMPRESSION: 1. Peripancreatic infiltration/fluid consistent with acute pancreatitis. 2. Common bile duct measures 8 mm. There is a questionable hyperdensity within the distal common bile duct measuring approximately 3 mm. This could be further evaluated with MRCP. 3. Diverticulosis without diverticulitis. 4. Enlarged prostate gland measuring 8.1 x 6 x 6.5 cm. Fleischner guidelines were followed.
--- NOTE | ~2024-02-18 | MR_ITS ---
EXAMINATION: MR ABDOMEN WITHOUT CONTRAST CLINICAL INFORMATION: Common bile duct dilatation COMPARISON: Previous CT of the abdomen and pelvis from earlier the same day TECHNIQUE: MR abdomen is performed without gadolinium contrast. MRCP sequences were also performed. FINDINGS: LUNG BASES: The visualized lung bases are unremarkable. LIVER, GALLBLADDER, AND BILIARY TREE: The liver is slightly enlarged. The liver is normal in signal. There is a 1.3 cm low signal T1, high signal T2 weighted sequences lesion at the junction of the anterior and posterior segments of the right lobe of the liver for example T2 image 8 series 5. This likely corresponds to hypoechoic lesion seen on ultrasound. This may represent a enhancing lesion seen on earlier CT axial image 27 series 3. This could represent an atypical hemangioma. It is incompletely characterized on MRCP exam and further evaluation with dedicated liver MRI with and without IV contrast should be considered if clinically indicated. No other focal liver lesion. The gallbladder has been removed. There is no intrahepatic biliary duct dilatation. The common bile duct measures 7 millimeters. There is slight irregularity of the distal common bile duct and decreased signal with a few tiny dots for example axial T2 image 12 and 14 series 5 and questionable for tiny stones or sludge. PANCREAS: The pancreas is upper normal in size. There is decreased T1 and increased T2 signal. There is abnormal signal seen in the peripancreatic fat. There is a small amount of ascites seen in the bilateral anterior pararenal fascia. There is trace ascites seen adjacent to the liver and spleen. Findings are suggestive of mild interstitial pancreatitis. This is similar to CT scan from earlier the same day. No focal pancreatic lesion. The main pancreatic duct does not appear dilated. SPLEEN: Unremarkable. ADRENAL GLANDS: Unremarkable. KIDNEYS AND URETERS: The kidneys are normal in size and shape. No hydronephrosis. Small bright T2 round lesions in the left kidney probably representing cysts. No imaging follow-up recommended. No perinephric stranding. GASTROINTESTINAL TRACT: No bowel obstruction. Trace ascites as described. ABDOMINAL WALL: No significant hernia is appreciated. Postsurgical changes to the anterior abdominal wall with signal artifact. LYMPH NODES: No lymphadenopathy. VASCULAR: IVC filter. OSSEOUS STRUCTURES: Marrow signal normal. Mild lumbar scoliosis. MR/MR MRCP IMPRESSION: Tiny filling defects in the distal common bile duct questionable for small stones or sludge. The intra and extrahepatic bile ducts do not appear dilated, common bile duct measuring 7 mm. Changes of mild interstitial pancreatitis similar to earlier CT. 1.3 cm lesion in the right lobe of the liver. This probably corresponds to ultrasound finding October 2023 and enhancing lesion on earlier abdominal and pelvic CT scan the same day. This may represent an atypical hemangioma. Further characterization with dedicated liver MRI according to a liver mass protocol with and without IV contrast recommended.
--- NOTE | 2024-02-18 04:22 | ED_ITS ---
HPI - General Adult General Chief complaint: General Medical Stated complaint: epi gastric pain Time Seen by Provider: 02/18/24 04:22 History of Present Illness HPI narrative: The patient is a 73-year-old male who had a laparoscopic cholecystectomy 3 months ago on November 10 2023. The surgeon was Dr. Ismael Dutta. Subsequently the patient had some postoperative bleeding in the gallbladder fossa and he had a 2nd surgery, laparotomy, to address the bleeding. He had a fairly long hospitalization and was ultimately discharged on December 03. During that hospitalization he also was found to have bilateral lower extremity DVTs and bilateral pulmonary mobility during the hospitalization. He received a [place] filter. The patient comes to the emergency room by ambulance tonight because of several hours of epigastric pain which got much worse early this morning and was associated with vomiting and an episode of near-syncope after using the toilet. No fever. No chest pain or shortness of breath. Related Data Home Medications ?Medication ?Instructions ?Recorded ?Confirmed aspirin 81 mg tablet,delayed 81 mg PO DAILY 01/13/21 02/18/24 release (Adult Low Dose Aspirin) atorvastatin 20 mg tablet 20 mg PO Q OTHER DAY 01/13/21 02/18/24 losartan 100 mg tablet 100 mg PO BEDTIME 01/13/21 02/18/24 omeprazole 40 mg capsule,delayed 40 mg PO BEDTIME 01/13/21 02/18/24 release tramadol 50 mg tablet 50 mg PO BID PRN Pain 01/13/21 02/18/24 acetaminophen 500 mg tablet 500 mg PO Q6H PRN Pain 11/03/23 02/18/24 cholecalciferol (vitamin D3) 25 25 mcg PO DAILY 11/03/23 02/18/24 mcg (1,000 unit) capsule glucosamine-chondroitin 500 mg-400 1 cap PO DAILY 11/03/23 02/18/24 mg capsule magnesium oxide 500 mg PO DAILY 11/03/23 02/18/24 mecobalamin (vitamin B12) 2,500 3,000 mcg PO DAILY 11/03/23 02/18/24 mcg chewable tablet amlodipine 5 mg tablet 5 mg PO BEDTIME 11/05/23 02/18/24 Previous Rx's ?Medication ?Instructions ?Recorded metoprolol tartrate 25 mg tablet 25 mg PO BID #60 tabs 11/19/23 Allergies Allergy/AdvReac Type Severity Reaction Status Date / Time No Known Allergies Allergy Verified 02/18/24 04:17 Review of Systems 2 Review of Systems: Yes all other systems are reviewed and are negative [facility] Past Medical History Medical History Pulmonary embolism Postoperative anemia due to acute blood loss [place] disease Hematoma GERD (gastroesophageal reflux disease) Elevated cholesterol Low back pain Depression CAD (coronary artery disease) Stable angina Gallstones Scoliosis Carpal tunnel syndrome C2 cervical fracture Arthritis Hypertension Surgical History S/P laparoscopic cholecystectomy Hx of carpal tunnel repair History of esophagogastroduodenoscopy (EGD) H/O colonoscopy History of cardiac cath Family History Family History Father HTN (hypertension) Cardiac arrest Mother HTN (hypertension) Stroke Sister HTN (hypertension) Cancer Social History Social History Household Members: Spouse Household Members Other:: tereza Housing: House Are you a primary anesthesiologist and critical care to a significant other at home: No Do you presently have visiting nurse or other home services: No Unable to assess alcohol history related to: Unable to respond Alcohol intake: never Patient Tobacco Use Status: Former Tobacco user Quit Date: 1970 Tobacco use type: Cigarette Years Smoked: 3 +/- Smoked in Last 30 Days: No Use of substances other than those prescribed or required for medical reasons: No Advance Directives: No Advance Directives Information Provided: No service: Yes Physical Exam ED Vital Signs: Vital Signs - 24 hr 02/18/24 04:11 02/18/24 04:33 02/18/24 05:39 Temperature 98.9 F Pulse Rate 94 Respiratory Rate 20 24 H 21 H Blood Pressure 160/111 H Pulse Oximetry 97 Oxygen Delivery Method Room Air Oxygen Flow Rate 02/18/24 05:41 02/18/24 07:18 02/18/24 08:34 Temperature 99.4 F 98.7 F Pulse Rate 98 102 H 105 H Respiratory Rate 21 H 16 18 Blood Pressure 157/82 H 119/76 141/78 H Pulse Oximetry 95 92 88 L Oxygen Delivery Method Room Air Room Air Room Air Oxygen Flow Rate 02/18/24 08:37 Temperature Pulse Rate 105 H Respiratory Rate 18 Blood Pressure Pulse Oximetry 95 Oxygen Delivery Method Nasal Cannula Oxygen Flow Rate 2 BMI result Body Mass Index 29.1 Const Other: The patient is awake and alert. He looked somewhat uncomfortable. HENMT Other: Face is symmetrical. Mucous membranes moist. Eyes Other: Pupils are round equal, conjunctivae clear Neck Other: No JVD Resp Effort & Inspection: normal respiratory effort Auscultation: clear to auscultation bilaterally Cardio Rate: regular rate Rhythm: regular rhythm Heart sounds: S1 normal heart sound present and S2 normal heart sound present GI Other: The patient is very tender across his upper abdomen. Skin Other: Skin is pale and dry Neuro Other: The patient is awake and alert with a clear mental status. Cranial nerves are grossly intact. He moves his extremities symmetrically. Extrem Other: No peripheral edema Medications Administered Generic Name Dose Route Start Last Admin Trade Name Freq PRN Reason Stop Dose Admin Sodium Chloride 1,000 mls @ 999 mls/hr 02/18/24 08:00 02/18/24 08:12 Ns IV 02/18/24 09:00 999 mls/hr .Q1H1M LEYLA Administration Discontinued Medications Generic Name Dose Route Start Last Admin Trade Name Freq PRN Reason Stop Dose Admin Hydromorphone HCl 1 mg 02/18/24 05:33 02/18/24 05:39 Hydromorphone Hcl 1 Mg/Ml Syringe IVPUSH 02/18/24 05:34 1 mg ONCE ONE Administration Protocol Hydromorphone HCl 1 mg 02/18/24 08:05 02/18/24 08:12 Hydromorphone Hcl 1 Mg/Ml Syringe IVPUSH 02/18/24 08:06 1 mg ONCE ONE Administration Protocol Sodium Chloride 1,000 mls @ 999 mls/hr 02/18/24 04:30 02/18/24 06:00 Ns IV 02/18/24 05:30 Infused .Q1H1M LEYLA Infusion Iohexol 85 ml 02/18/24 05:19 02/18/24 05:20 Iohexol 350 Mg/Ml 100 Ml Infus..Btl IV 02/18/24 05:20 85 ml ONCE ONE Administration Morphine Sulfate 4 mg 02/18/24 04:21 02/18/24 04:33 Morphine Sulfate 4 Mg/Ml Cartridge IVPUSH 02/18/24 04:22 4 mg ONCE ONE Administration Protocol Ondansetron HCl 4 mg 02/18/24 04:21 02/18/24 04:33 Ondansetron Hcl 4 Mg/2 Ml Vial IVPUSH 02/18/24 04:22 4 mg ONCE ONE Administration Medical Decision Making Medical Decision Making [facility] Narrative: The patient was seen promptly. He looks quite uncomfortable and he looked fairly ill. His abdomen was quite tender. He was given IV hydromorphone and droperidol as well as IV fluids. Labs came back with a lipase greater than 3000. Also abnormal LFTs. This suggests the possibility of a possible ductal stone. The patient does not seem septic or toxic. He is afebrile. He felt better with pain medications. CT scan of the abdomen and pelvis is consistent with pancreatitis with a question of a possible ductal stone. The patient will be admitted to the hospitalist service for further care. Lab Data 02/18/24 04:26 02/18/24 04:26 Labs: Lab Results 02/18/24 Range/Units 04:26 WBC 17.4 H (4.8-10.8) X10*3/uL RBC 4.62 (4.60-5.80) X10*6/uL Hgb 14.8 (14.0-18.0) g/dl Hct 42.4 (42.0-52.0) % MCV 91.8 (80.0-98.0) fL MCH 32.0 (27.0-33.0) pg MCHC 34.9 (31.0-36.0) g/dl RDW 15.4 (11.0-16.0) % Plt Count 200 (160-400) X10*3/uL MPV 9.3 L (9.4-12.4) fL Immature Gran % (Auto) 0.5 H (0.0-0.4) % Neut % (Auto) 93.4 H (45-73) % Lymph % (Auto) 2.1 L (20-40) % [place] % (Auto) 3.8 (2-11) % Eos % (Auto) 0.0 (0-4) % Baso % (Auto) 0.2 (0-2) % Lymph # (Auto) 0.4 L (1.2-4.9) X10*3/uL [place] # (Auto) 0.7 (0.1-1.2) X10*3/uL Eos # (Auto) 0.0 (0.0-0.4) X10*3/uL Baso # (Auto) 0.0 (0.0-0.2) X10*3/uL Abs Immat Gran (auto) 0.09 H (0.00-0.03) X10*3/uL Absolute Neuts (auto) 16.1 H (2.0-8.3) x10*3/uL Absolute Nucleated RBC 0.000 (0.0-0.012) X10*3/uL Nucleated RBC % (auto) 0.0 (0.0-0.2) /100WBC Smear Tech's Comments VERIFIED Sodium 138 (135-145) mmol/L Potassium 3.7 (3.3-5.1) mmol/L Chloride 102 (96-108) mmol/L Carbon Dioxide 24 (22-29) mmol/L Anion Gap 16 (12-20) BUN 18 H (9-16) mg/dL Creatinine 0.91 (0.5-1.4) mg/dL Estim Creat Clear Calc 72.6 Estimated GFR > 60 Random Glucose 179 H (60-115) mg/dL Calcium 9.4 (8.4-10.2) mg/dL Magnesium 1.6 (1.6-2.6) mg/dL Total Bilirubin 6.1 H (0.0-1.0) mg/dL Direct Bilirubin 2.6 H (0.0-0.5) mg/dL AST 372 H (5-37) U/L ALT 407 H (0-40) U/L Alkaline Phosphatase 176 H (39-117) U/L Troponin I High Sens 3.9 (<3.5-35.0) ng/L C-Reactive Protein 6.44 H (< or = 0.50) mg/dL Total Protein 7.1 (6.5-8.0) g/dL Albumin 4.0 (3.5-5.0) g/dL Lipase > 3000 H (8-78) U/L Critical Care Time Critical Care Time Critical Care Time: Yes Total Critical Care Time: 35 Attestation: The patient was critically ill with a high probability of imminent or life- threatening deterioration. ?I spent greater than 30 minutes of discontinuous time evaluating the patient, delivering critical care at the bedside, discussing evaluating data with consultants. ?Critical care time does not include time spent performing separately billable procedures or teaching. ?Time spent performing critical care with 35 minutes. Discharge Plan Discharge Clinical Impression: Acute pancreatitis, Abnormal LFTs Patient Disposition: Admitted As Inpatient Print Language: German
[2024-02-18] MEDS: ondansetron HCL 4 MG/2 ML VIAL IVPUSH (04:33)
[2024-02-18] MEDS: Morphine Sulfate 4 MG/ML CARTRIDGE IVPUSH (04:33)
[2024-02-18 04:34] LABS: Hematocrit 42.4 % (42.0-52.0); Hemoglobin 14.8 g/dl (14.0-18.0); Mean Corpuscular HGB Conc 34.9 g/dl (31.0-36.0); Mean Corpuscular Volume 91.8 fL (80.0-98.0); Mean Platelet Volume 9.3 fL (9.4-12.4); Platelet Count 200 X10*3/uL (160-400); Red Blood Count 4.62 X10*6/uL (4.60-5.80); Red Cell Distribution Width 15.4 % (11.0-16.0); White Blood Count 17.4 X10*3/uL (4.8-10.8)
[2024-02-18] MEDS: 0.9 % Sodium Chloride 1,000 ML 999 ML IV ×2 (04:35→08:12)
--- NOTE | 2024-02-18 04:41 | PC.NURSE ---
Pt BIBA from home, reports 9/10 constant epigastric pain x yesterday with one episode of dark liquid, coffee color emesis. Pt also reports syncope episode where had to lower him to floor after having BM. Pt denies head strike/thinner/ denies CP/SOB. Upper ABD tender to touch. Pt denies urinary symptoms. Pt reports cholecystectomy in November 2023. IV line placed, blood work collected and sent to lab.
[2024-02-18 04:50] LABS: Alanine Aminotransferase 407 U/L (0-40); Alkaline Phosphatase 176 U/L (39-117); Anion Gap 16 (12-20); Aspartate Amino Transferase 372 U/L (5-37); Bilirubin Direct 2.6 mg/dL (0.0-0.5); Bilirubin Total 6.1 mg/dL (0.0-1.0); Blood Urea Nitrogen 18 mg/dL (9-16); Calcium 9.4 mg/dL (8.4-10.2); Carbon Dioxide 24 mmol/L (22-29); Chloride 102 mmol/L (96-108); Creatinine Clr Calc Pharmacy 72.6; Estimated Glomerular Filt Rate > 60; Glucose Random 179 mg/dL (60-115); Magnesium 1.6 mg/dL (1.6-2.6); Potassium 3.7 mmol/L (3.3-5.1); Sodium 138 mmol/L (135-145); Total Protein 7.1 g/dL (6.5-8.0)
[2024-02-18 04:53] LABS: Troponin-I High Sensitivity 3.9 ng/L (<3.5-35.0)
[2024-02-18 05:00] LABS: Lipase > 3000 U/L (8-78)
[2024-02-18] MEDS: iohexoL 350 MG/ML 100 ML INFUS..BTL 85 ML IV (05:20)
[2024-02-18] MEDS: HYDROmorphone HCl 1 MG/ML SYRINGE IVPUSH ×2 (05:39→08:12)
[2024-02-18 05:41] LABS: Basophils Percent Auto 0.2 % (0-2); Imm Gran Abs Auto 0.09 X10*3/uL (0.00-0.03); Imm Gran Pct Auto 0.5 % (0.0-0.4); Lymphocytes Absolute Auto 0.4 X10*3/uL (1.2-4.9); Lymphocytes Percent Auto 2.1 % (20-40); MANUAL DIFF FLAG SCAN; Monocytes Absolute Auto 0.7 X10*3/uL (0.1-1.2); Monocytes Percent Auto 3.8 % (2-11); Neutrophils Absolute Auto 16.1 x10*3/uL (2.0-8.3); Neutrophils Percent Auto 93.4 % (45-73); SCAN SMEAR FLAG 1
[2024-02-18 05:43] LABS: C Reactive Protein 6.44 mg/dL (< or = 0.50)
--- NOTE | 2024-02-18 05:49 | PC.NURSE ---
Med rec done, and Pt at bedside able to verify home meds.
[2024-02-18 06:06] LABS: SLIDE REVIEW VERIFIED
--- NOTE | 2024-02-18 08:16 | PHA.MEDREC ---
Pharmacy Consult ? Medication Reconciliation Pharmacy has completed the medication reconciliation. Reviewed med rec done by nursing, confirmed with pt and that his provider took him off finasteride so he is no longer taking that, and that he takes his statin in the morning and had his dose yesterday.
--- NOTE | 2024-02-18 08:44 | PM.IMHP ---
History of Present Illness Date of Service: 02/18/24 Chief Complaint: abdominal pain, weakness The patient is a 73 year old male with a PMH of HTN, CAD, GERD, gallstones s/p removal (complicated hospitalization in November 2023) who presents to the ED with complaints of abdominal pain which began on the day prior to admission. THe patient reports that he has had abdominal symptoms and pain since his hospitalization in November but yesterday, the pain was different (lower/mid abdominal) and severe. He has been unable to keep orals down. He reports fevers of 101 on the day prior to admission. Had one episode of non-bloody, non-bilious vomiting. No diarrhea. On the day of admission, the patient was ambulating back to his bedroom after using the bathroom, at which point he had a near syncopal episode. He states he began feeling week and was slowly brought down to the floor with the help of his . No reports or chest pain or shortness of breath. Work up in the ED revealed LFTs in an obstructive pattern and CT questionable for distal CBD stone. He has been given 2L IVF, multiple rounds of IV analgesics and now will be admitted for further care. Review of Systems Review of Systems: Negative except HPI/interval history. [facility] Medical History Pulmonary embolism Postoperative anemia due to acute blood loss [place] disease Hematoma GERD (gastroesophageal reflux disease) Elevated cholesterol Low back pain Depression CAD (coronary artery disease) Stable angina Gallstones Scoliosis Carpal tunnel syndrome C2 cervical fracture Arthritis Hypertension Family History Father HTN (hypertension) Cardiac arrest Mother HTN (hypertension) Stroke Sister HTN (hypertension) Cancer Surgical History S/P laparoscopic cholecystectomy Hx of carpal tunnel repair History of esophagogastroduodenoscopy (EGD) H/O colonoscopy History of cardiac cath Social History Household Members: Spouse Household Members Other:: tereza Housing: House Are you a primary rn patient care to a significant other at home: No Do you presently have visiting nurse or other home services: No Unable to assess alcohol history related to: Unable to respond Alcohol intake: never Patient Tobacco Use Status: Former Tobacco user Quit Date: 1970 Tobacco use type: Cigarette Years Smoked: 3 +/- Smoked in Last 30 Days: No Use of substances other than those prescribed or required for medical reasons: No Currently Displaying Signs/Symptoms of Drug Intoxication Withdrawal: No Have you been hit, kicked, punched, or otherwise hurt by someone within the past year? If so, by whom?: No Do you feel safe in your current relationship?: Yes Is there a partner from a previous relationship who is making you feel unsafe now?: No Are you made to feel afraid or neglected: No Advance Directives: No Advance Directives Information Provided: No Do you have thoughts of harming others: None Do you have a plan to hurt others: No Plan Recently lost weight without trying: Yes How much weight loss: 14-23 pounds Eating poorly because of decreased appetite: No Nutrition screen score: 4 Nutrition Risks: No Nutritional Risk Poor oral hygiene: No service: No Meds Allergies Allergy/AdvReac Type Severity Reaction Status Date / Time No Known Allergies Allergy Verified 02/18/24 04:17 Active Medications: Current Medications Sodium Chloride (Ns) 1,000 mls @ 999 mls/hr IV .Q1H1M [facility] Stop: 02/18/24 09:00 Last Admin: 02/18/24 08:12 Dose: 999 mls/hr Lactated Ringer's (Lr) 1,000 mls @ 150 mls/hr IVCONT .Q6H40M [facility] Sodium Chloride (0.9 % Sodium Chloride Flush 3 Ml Syringe) 3 ml IVFLUSH QSHIFT [facility] Home Medications ?Medication ?Instructions ?Recorded ?Confirmed ?Last Taken ?Type aspirin 81 mg tablet,delayed 81 mg PO DAILY 01/13/21 02/18/24 11/09/23 History release (Adult Low Dose Aspirin) atorvastatin 20 mg tablet 20 mg PO Q OTHER DAY 01/13/21 02/18/24 02/17/24 History losartan 100 mg tablet 100 mg PO BEDTIME 01/13/21 02/18/24 11/09/23 History omeprazole 40 mg capsule,delayed 40 mg PO BEDTIME 01/13/21 02/18/24 11/09/23 History release tramadol 50 mg tablet 50 mg PO BID PRN Pain 01/13/21 02/18/24 Unknown History acetaminophen 500 mg tablet 500 mg PO Q6H PRN Pain 11/03/23 02/18/24 Unknown History cholecalciferol (vitamin D3) 25 25 mcg PO DAILY 11/03/23 02/18/24 11/09/23 History mcg (1,000 unit) capsule glucosamine-chondroitin 500 mg-400 1 cap PO DAILY 11/03/23 02/18/24 11/09/23 History mg capsule magnesium oxide 500 mg PO DAILY 11/03/23 02/18/24 11/09/23 History mecobalamin (vitamin B12) 2,500 3,000 mcg PO DAILY 11/03/23 02/18/24 11/09/23 History mcg chewable tablet amlodipine 5 mg tablet 5 mg PO BEDTIME 11/05/23 02/18/24 11/09/23 History Physical Exam Vital Signs and Narrative: Vital Signs: Last Vital Signs Temp 98.7 F 02/18/24 08:34 Pulse 105 H 02/18/24 08:37 Resp 18 02/18/24 08:37 BP 141/78 H 02/18/24 08:34 Pulse Ox 95 02/18/24 08:37 O2 Del Method Nasal Cannula 02/18/24 08:37 O2 Flow Rate 2 02/18/24 08:37 BMI result Body Mass Index 29.1 Const: Other: Constitutional - Awake and alert, appears comfortable at rest Eyes - PERRLA, EOMI Cardiovascular - S1S2, RRR, No edema Respiratory - Normal lung expansion, Normal respiratory effort, No respiratory distress, CTA bilaterally Gastrointestinal - diffuse TTP - No CVA tenderness Extremities - no calf tenderness bilaterally, no swelling Musculoskeletal - Normal inspection, normal ROM Skin - Warm/Dry Neurological - Alert & oriented x3, No focal deficit Psychological - Appropriate affect Results Labs 02/22/24 06:36 02/22/24 06:36 Labs: Laboratory Results - last 24 hr 02/18/24 04:26 MCV 91.8 MCH 32.0 MCHC 34.9 RDW 15.4 Plt Count 200 MPV 9.3 L Immature Gran % (Auto) 0.5 H Neut % (Auto) 93.4 H Lymph % (Auto) 2.1 L [place] % (Auto) 3.8 Eos % (Auto) 0.0 Baso % (Auto) 0.2 Lymph # (Auto) 0.4 L [place] # (Auto) 0.7 Eos # (Auto) 0.0 Baso # (Auto) 0.0 Abs Immat Gran (auto) 0.09 H Absolute Neuts (auto) 16.1 H Absolute Nucleated RBC 0.000 Nucleated RBC % (auto) 0.0 Smear Tech's Comments VERIFIED Anion Gap 16 Estim Creat Clear Calc 72.6 Estimated GFR > 60 Random Glucose 179 H Calcium 9.4 Magnesium 1.6 Total Bilirubin 6.1 H Direct Bilirubin 2.6 H AST 372 H ALT 407 H Alkaline Phosphatase 176 H Troponin I High Sens 3.9 C-Reactive Protein 6.44 H Total Protein 7.1 Albumin 4.0 Lipase > 3000 H Imaging Radiologist's Impressions: Impressions Abdomen/Pelvis CT 02/18/24 05:27 IMPRESSION: 1. Peripancreatic infiltration/fluid consistent with acute pancreatitis. 2. Common bile duct measures 8 mm. There is a questionable hyperdensity within the distal common bile duct measuring approximately 3 mm. This could be further evaluated with MRCP. 3. Diverticulosis without diverticulitis. 4. Enlarged prostate gland measuring 8.1 x 6 x 6.5 cm. Fleischner guidelines were followed. Assessment and Plan (1) Acute pancreatitis: Status: Acute Plan 73 yo M with a PMH of CAD, HTN, GERD, gall stones s/p cholecystectomy complicated by liver hematoma, 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 His work up is consistent with pancreatitis likely secondary to gallstones. 1. Acute pancreatitis, suspcted choledocolithiasis, obstructive jaundice bowel rest, IVF, IV analgesics pt with reported fever at home -- will empirically cover antibiotics (blood cultures and lactate ordered) MRCP to further delineate CT findings GI consult 2. Hypoxia mild, around 89-90 likely due to hypoventilation due to pain monitor and keep sats >92 3. HTN will observe BP and start BP meds as appropriate 4. History PE/DVT s/p IVF filter -- not on OAC (had liver hematoma) Full Code DVT pptx, lovenox Quality Stroke Does the patient have a stroke diagnosis?: No VTE Prior VTE?: No VTE Risk Level:: Medical - moderate - high VTE Device Contraindication: N/A - Device Ordered VTE Drug Contraindication: N/A - Med Ordered
[2024-02-18] MEDS: Piperacillin Sodium/Tazobactam 3.375 GM in 0.9 % Sodium Chloride 50 ML IV ×3 (09:09→22:46)
[2024-02-18 09:33] LABS: Lactic Acid 1.3 mmol/L (0.5-2.0)
[2024-02-18] MEDS: Lidocaine HCl 2 % Urojet 10 ML JEL.PF.APP TOPICAL (09:59)
[2024-02-18 10:01] LABS: INTERNATIONAL NORM RATIO 1.3 (0.9-1.1)
[2024-02-18] MEDS: Lactated Ringers 1,000 ML 150 ML IVCONT ×2 (10:55→20:29)
[2024-02-18] MEDS: Enoxaparin Sodium 40 MG/0.4 ML SYRINGE SUBCUT (11:00)
[2024-02-18] MEDS: HYDROmorphone HCl 0.5 MG/0.5 ML SYRINGE IVPUSH ×3 (13:24→22:46)
[2024-02-18] MEDS: Metoprolol Tartrate 25 MG TABLET PO ×2 (14:38→22:46)
[2024-02-18] MEDS: Phytonadione (Vit K1) 10 MG in 0.9 % Sodium Chloride 50 ML 51 MG IV (15:43)
[2024-02-18 18:31] LABS: MANUAL DIFF FLAG NO
--- NOTE | 2024-02-18 18:31 | PC.NURSE ---
Patient arrived from ED able to ambulate from stretcher to bed. Oriented to unit, call serrano and staff. A&OX4. Neurologically intact. LYNN to command 5/5 sensation intact, +pp bilat no edema noted. LSCTA denies SOB or CP, NSR on tele arrived on 2L oxygen satting 97%. BS+X4 abdomen round tender to touch old scarring from surgical site noted. Denies nausea/vomiting. c/o pain 9/10 to mid upper abdomen medicated with prn dialudid with good effect. Croft cath in place with clear yessica urine. Skin mildly jaundiced. IV fluids and antibiotics infusing per order. Bed in lowest locked position alarm for safety, call serrano within reach. Seen by Dr Neves labs ordered.
[2024-02-18 18:37] LABS: Basophils Percent Auto 0.2 % (0-2); Hematocrit 38.4 % (42.0-52.0); Hemoglobin 13.4 g/dl (14.0-18.0); Imm Gran Abs Auto 0.12 X10*3/uL (0.00-0.03); Imm Gran Pct Auto 0.9 % (0.0-0.4); Lymphocytes Absolute Auto 0.4 X10*3/uL (1.2-4.9); Lymphocytes Percent Auto 3.1 % (20-40); Mean Corpuscular HGB Conc 34.9 g/dl (31.0-36.0); Mean Corpuscular Hemoglobin 32.2 pg (27.0-33.0); Mean Corpuscular Volume 92.3 fL (80.0-98.0); Mean Platelet Volume 9.5 fL (9.4-12.4); Monocytes Absolute Auto 0.8 X10*3/uL (0.1-1.2); Neutrophils Absolute Auto 11.6 x10*3/uL (2.0-8.3); Neutrophils Percent Auto 89.8 % (45-73); Platelet Count 165 X10*3/uL (160-400); Red Blood Count 4.16 X10*6/uL (4.60-5.80); Red Cell Distribution Width 15.7 % (11.0-16.0); White Blood Count 12.9 X10*3/uL (4.8-10.8)
[2024-02-18 18:47] LABS: Alanine Aminotransferase 274 U/L (0-40); Albumin Level 3.3 g/dL (3.5-5.0); Alkaline Phosphatase 149 U/L (39-117); Aspartate Amino Transferase 197 U/L (5-37); Bilirubin Direct 3.4 mg/dL (0.0-0.5); Bilirubin Total 7.1 mg/dL (0.0-1.0); Total Protein 6.2 g/dL (6.5-8.0)
[2024-02-18 19:05] LABS: Lipase 1587 U/L (8-78)
--- NOTE | 2024-02-18 22:26 | PM.EVENT ---
Event Note Date of Service: 02/18/24 Event Note: GI Consult-full note dictated-History from patient, , and EMR Imp: Acute biliary pancreatitis with probable passage of a stone or sludge. Presently appears very stable without signs of cholangitis or sepsis presently. His MRCP does not show any definitive CBD stones. His abdominal exam remains tender and slightly distended with diminished BS, but without mass. Rec: Supportive care, antibiotics, F/U labs, NPO, PPI. I would hold off on an ERCP during the acute phase unless things worsen. Given the minimal and questionable findings on the MRCP, I would hold off on an ERCP in general down the road as well, unless something changes. His diet can be advanced as his pain resolves and the pancreatitis improves.D/W patient and in detail. They are comfortable with this plan. Thanks Time Spent With Patient Time: Total time managing care of this patient today ____ minutes.
[2024-02-18] MEDS: amLODIPine Besylate 5 MG TABLET PO (22:46)
[2024-02-18] MEDS: 0.9 % Sodium Chloride Flush 3 ML SYRINGE IVFLUSH (22:48)
[2024-02-18] MEDS: Pantoprazole Sodium 40 MG/10 ML VIAL IVPUSH (23:53)
[2024-02-19] VITALS (11 sets, daily range): BP systolic 127–168; BP diastolic 72–88; PULSE 80–110; RESP 16–20; TEMP 36.3–37.7; O2SAT 94–96
--- NOTE | 2024-02-19 02:30 | CONS_ITS ---
DATE OF SERVICE: 02/18/2024 REASON FOR CONSULTATION: Abdominal pain and pancreatitis. HISTORY OF PRESENT ILLNESS: This has been obtained from the patient and his , and the medical record. The patient is a 73-year-old male who was in his usual state of health when he developed the onset of mid-abdominal pain on the day prior to admission. This intensified and was associated with some vomiting and lightheadedness with associated syncope. The pain became quite severe and he was transported to the ER by ambulance. His past history is notable for a laparoscopic cholecystectomy in early November which was complicated by intraabdominal bleeding requiring exploratory laparotomy. He had a complicated hospital course including DVTs and pulmonary emboli which required placement of an IVC filter. He ultimately went to a rehab facility and has been home for over 1 month now. Since being home he has been progressing up until the onset of this abdominal pain. Since admission here he does continue to have abdominal pain, although he thinks things are somewhat better. He has not noticed any obvious jaundice. He does not use any alcohol. He has not noticed any hematemesis, coffee-grounds emesis, melena, nor hematochezia. He has no previous history of pancreatitis in himself nor family members. He denies any previous history of liver disease in himself, although there is reported Gilbert's disease in himself. CURRENT MEDICATIONS: Aspirin, amlodipine, atorvastatin, vitamin D, losartan, magnesium, omeprazole, metoprolol, and tramadol. PAST MEDICAL HISTORY: Coronary artery disease with 1 coronary artery stent, cholecystectomy as described above with complications. He has had DVT's and pulmonary emboli and is status-post IVC filter placement. He denies history of OR, stroke, nor lung disease. Other surgery includes carpal tunnel surgery bilaterally. SOCIAL HISTORY: He is . He is retired. He does not smoke nor use any significant amounts of alcohol. FAMILY HISTORY: Noncontributory. PHYSICAL EXAMINATION: GENERAL: The patient is a pleasant alert, fairly comfortable appearing male. SKIN: Warm and dry. Slightly icteric sclerae. Moist mucous membranes. CARDIAC: Normal S1, S2. ABDOMEN: Soft, but distended. Bowel sounds are diminished. There is diffuse tenderness. There is no palpable mass. LABORATORY DATA: White blood cell count 17.4 on admission and 12.9 on followup, hemoglobin 13.4, platelets 165,000. PT 16.0 with INR 1.3. Normal chemistries. BUN 18, creatinine 0.9, total bilirubin 6.1, direct bilirubin 2.6, AST 372, ALT 407, alkaline phosphatase 176. C-reactive protein 6.4. Lipase over 3000. Albumin 4.0. His CT scan of the abdomen and pelvis described his prior cholecystectomy and a common bile duct measured up to 8 mm with a question of a 3 mm stone in the distal common duct. The pancreas was noted to be somewhat edematous with some inflammation and fluid. He did have a followup MRCP today which also describes evidence of pancreatitis with a small amount of surrounding fluid, no intrahepatic bile duct dilatation, and a common bile duct of 7 mm. The radiologist describes very slight irregularity in the distal common duct and a few tiny dots raising a suspicion of some tiny stones or sludge. IMPRESSION: Given the patient's clinical history, this seems consistent with an episode of biliary pancreatitis with most likely passage of a stone and/or sludge. He did have fever and chills at home, but presently appears comfortable and does not appear to be toxic. In addition to the supportive care, I would continue antibiotics, follow up laboratories in the morning, an IV PPI and keeping him n.p.o. I would hold off on an ERCP during the acute phase of pancreatitis given no definitive findings on MRCP and the potential that an ERCP could exacerbate his pancreatitis. In general, I did advise him and his that given the minimal and very questionable findings on the MRCP, I would most likely hold off on an ERCP in general unless he develops recurrent pain and elevated LFTs after this episode resolves. At this point, I would continue to observe things and continue supportive care. I think his diet can be advanced as his pain resolves and pancreatitis improves. This has been discussed with his and the patient in detail, and they are comfortable with the plan. Thank you for this consultation. MD ELEONORA Boyd/SILVA / [phone] MTDKyler
[2024-02-19] MEDS: HYDROmorphone HCl 0.5 MG/0.5 ML SYRINGE IVPUSH ×7 (02:38→23:22)
[2024-02-19] MEDS: Piperacillin Sodium/Tazobactam 3.375 GM in 0.9 % Sodium Chloride 50 ML IV ×4 (02:38→20:19)
[2024-02-19] MEDS: Pantoprazole Sodium 40 MG/10 ML VIAL IVPUSH ×2 (06:48→15:25)
[2024-02-19] MEDS: Lactated Ringers 1,000 ML 150 ML IVCONT ×3 (06:50→22:13)
--- NOTE | 2024-02-19 07:17 | P.PNIM_ITS ---
Subjective Subjective Date of Service: 02/19/24 Interval History: Seen in follow up for acute pancreatitis Interval history: No overnight events Reports diffuse abd pain, nausea. No ongoing vomiting. Remains on supplemental O2 Review of Systems Review of Systems: Yes all other systems are reviewed and are negative Physical Exam 2 Vital Signs: Vital Signs: Last Vital Signs Temp 97.3 F 02/19/24 07:13 Pulse 99 02/19/24 07:13 Resp 18 02/19/24 07:13 BP 127/72 02/19/24 07:13 Pulse Ox 95 02/19/24 07:13 O2 Del Method Nasal Cannula 02/19/24 07:13 O2 Flow Rate 2 02/19/24 07:13 BMI result Body Mass Index 29.5 Constitutional - Awake and Alert, No apparent distress Eyes - PERRLA, EOMI Cardiovascular - S1S2, RRR, No edema Respiratory - Normal lung expansion, Normal respiratory effort, No respiratory distress, CTA bilaterally Gastrointestinal - mild distension, diffuse ttp with guarding. +BS; No rebound Extremities - no calf tenderness bilaterally, no swelling Skin - Warm/Dry. +jaudice Neurological - Alert & oriented x3 Psychological - Appropriate affect Objective Data Active Medications Acetaminophen (Acetaminophen 325 Mg Tablet) 650 mg PO Q6H PRN PRN Reason: Pain, Mild (Pain Scale 1-3) Amlodipine Besylate (Amlodipine Besylate 5 Mg Tablet) 5 mg PO BEDTIME [facility]; Protocol Last Admin: 02/18/24 22:46 Dose: 5 mg Documented By: SWAPNA Enoxaparin Sodium (Enoxaparin Sodium 40 Mg/0.4 Ml Syringe) 40 mg SUBCUT Q24H [facility] Last Admin: 02/18/24 11:00 Dose: 40 mg Documented By: TOSHA Hydromorphone HCl (Hydromorphone Hcl 0.5 Mg/0.5 Ml Syringe) 0.5 mg IVPUSH Q3H PRN; Protocol PRN Reason: Pain, Severe (Pain Scale 7-10) Last Admin: 02/19/24 06:38 Dose: 0.5 mg Documented By: SWAPNA Lactated Ringer's (Lr) 1,000 mls @ 150 mls/hr IVCONT .Q6H40M [facility] Last Admin: 02/19/24 06:50 Dose: 150 mls/hr Documented By: SWAPNA Piperacillin Sod/Tazobactam (Sod 3.375 gm/ Sodium Chloride) 50 mls @ 100 mls/hr IV Q6H [facility] Last Infusion: 02/19/24 03:40 Dose: Infused Documented By: SWAPNA Metoprolol Tartrate (Metoprolol Tartrate 25 Mg Tablet) 25 mg PO BID [facility]; Protocol Last Admin: 02/18/24 22:46 Dose: 25 mg Documented By: SWAPNA Pantoprazole Sodium (Pantoprazole Sodium 40 Mg/10 Ml Vial) 40 mg IVPUSH BID@0630,1630 [facility] Last Admin: 02/19/24 06:48 Dose: 40 mg Documented By: SWAPNA Sodium Chloride (0.9 % Sodium Chloride Flush 3 Ml Syringe) 3 ml IVFLUSH QSHIFT [facility] Last Admin: 02/18/24 22:48 Dose: 3 ml Documented By: SWAPNA Labs 02/19/24 06:40 02/19/24 06:40 Labs: Laboratory Results - last 24 hr 02/18/24 02/18/24 02/18/24 09:00 09:49 18:17 MCV 92.3 MCH 32.2 MCHC 34.9 RDW 15.7 Plt Count 165 MPV 9.5 Immature Gran % (Auto) 0.9 H Neut % (Auto) 89.8 H Lymph % (Auto) 3.1 L [place] % (Auto) 6.0 Eos % (Auto) 0.0 Baso % (Auto) 0.2 Lymph # (Auto) 0.4 L [place] # (Auto) 0.8 Eos # (Auto) 0.0 Baso # (Auto) 0.0 Abs Immat Gran (auto) 0.12 H Absolute Neuts (auto) 11.6 H Absolute Nucleated RBC 0.000 Nucleated RBC % (auto) 0.0 PT 16.0 H INR 1.3 H Lactic Acid 1.3 Total Bilirubin 7.1 H Direct Bilirubin 3.4 H AST 197 H ALT 274 H Alkaline Phosphatase 149 H Total Protein 6.2 L Albumin 3.3 L Lipase 1587 H Microbiology Microbiology Results: Microbiology 02/18/24 09:00 Blood Culture - Preliminary Blood - Venous Gram negative simon 02/18/24 09:00 Blood Culture - Preliminary Blood - Venous Gram negative simon Assessment and Plan (1) Acute pancreatitis: Status: Acute (2) Abnormal LFTs: Status: Acute Plan 73 yo M with a PMH of CAD, HTN, GERD, gall stones s/p cholecystectomy complicated by liver hematoma, 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 His work up is consistent with pancreatitis likely secondary to gallstones. #Acute pancreatitis/cholangitis/obstructive jaundice bowel rest, IVF, IV analgesics MRCP shows tiny filling defects in the distal CBD questionable for small stones/sludge. Mild interstitial pancreatitis noted. 1.3cm lesion R lobe liver, seen on prior imaging studies IV zosyn bili trending down trial clear liquids, advance as tolerated GI consult #Gram negative bacteremia febrile at home, afebrile since arrival likely due to above continue zosyn until final cultures finalized #Hypoxia mild, around 89-90 likely due to hypoventilation due to pain monitor and keep sats >92 #HTN will observe BP and start BP meds as appropriate #History PE/DVT s/p IVF filter -- not on OAC (had liver hematoma) Full Code DVT pptx, lovenox Pt requires ongoing inpt stay due persistent severe abd pain with guarding requiring IVF, advancement of diet as well as IV abx for bacteremia awaiting final cultures Quality Stroke Does the patient have a stroke diagnosis?: No VTE Prior VTE?: No VTE Risk Level:: Medical - moderate - high VTE Device Contraindication: N/A - Device Ordered VTE Drug Contraindication: N/A - Med Ordered
[2024-02-19 07:29] LABS: Hemoglobin 12.8 g/dl (14.0-18.0); Mean Corpuscular HGB Conc 34.6 g/dl (31.0-36.0); Mean Corpuscular Hemoglobin 32.2 pg (27.0-33.0); Mean Platelet Volume 10.2 fL (9.4-12.4); Platelet Count 165 X10*3/uL (160-400); Red Blood Count 3.98 X10*6/uL (4.60-5.80); Red Cell Distribution Width 15.1 % (11.0-16.0); White Blood Count 10.9 X10*3/uL (4.8-10.8)
[2024-02-19 07:45] LABS: Alanine Aminotransferase 202 U/L (0-40); Albumin Level 3.1 g/dL (3.5-5.0); Alkaline Phosphatase 160 U/L (39-117); Anion Gap 13 (12-20); Aspartate Amino Transferase 128 U/L (5-37); Bilirubin Total 5.6 mg/dL (0.0-1.0); Blood Urea Nitrogen 19 mg/dL (9-16); Calcium 8.8 mg/dL (8.4-10.2); Carbon Dioxide 24 mmol/L (22-29); Chloride 106 mmol/L (96-108); Creatinine Clr Calc Pharmacy 93.6; Estimated Glomerular Filt Rate > 60; Glucose Random 94 mg/dL (60-115); Potassium 3.6 mmol/L (3.3-5.1); Sodium 139 mmol/L (135-145); Total Protein 6.1 g/dL (6.5-8.0)
[2024-02-19 07:53] LABS: Lipase 565 U/L (8-78)
[2024-02-19] MEDS: 0.9 % Sodium Chloride Flush 3 ML SYRINGE IVFLUSH ×2 (09:14→15:25)
[2024-02-19] MEDS: Enoxaparin Sodium 40 MG/0.4 ML SYRINGE SUBCUT (09:14)
[2024-02-19] MEDS: Metoprolol Tartrate 25 MG TABLET PO ×2 (09:15→20:20)
[2024-02-19] MEDS: Acetaminophen 325 MG TABLET 650 MG PO (09:23)
--- NOTE | 2024-02-19 10:26 | MHC.CM.PN ---
IMM 02/18. Pt self-care, lives at home with his /HCP Charlene, she will transport him home. Pt has a walker. HCP on file and verified. PCP: Dr. Agustin Mullen
--- NOTE | 2024-02-19 17:20 | P.PNGI_ITS ---
Subjective Subjective Date of Service: 02/19/24 Interval History: Still with abdominal pain. Passing a little flatus. Has some nausea but denies vomiting. Feels distended. He thinks the clear liquids increased his symptoms. Critical Care Time (minutes): 0 Physical Exam 2 Vital Signs: Vital Signs: Last Vital Signs Temp 97.7 F 02/19/24 15:17 Pulse 87 02/19/24 15:17 Resp 18 02/19/24 15:17 BP 157/85 H 02/19/24 15:17 Pulse Ox 95 02/19/24 15:17 O2 Del Method Nasal Cannula 02/19/24 15:17 O2 Flow Rate 2 02/19/24 15:17 BMI result Body Mass Index 29.5 Const: General: cooperative, comfortable, no acute distress, well developed, alert and awake GI: Other: Abd-distended and tympanitic, diminished BS, diffusely tender, no mass Objective Data Labs 02/19/24 06:40 02/19/24 06:40 Labs: Laboratory Results - last 24 hr 02/18/24 02/19/24 18:17 06:40 WBC 12.9 H 10.9 H RBC 4.16 L 3.98 L Hgb 13.4 L 12.8 L Hct 38.4 L 37.0 L MCV 92.3 93.0 MCH 32.2 32.2 MCHC 34.9 34.6 RDW 15.7 15.1 Plt Count 165 165 MPV 9.5 10.2 Immature Gran % (Auto) 0.9 H Neut % (Auto) 89.8 H Lymph % (Auto) 3.1 L [place] % (Auto) 6.0 Eos % (Auto) 0.0 Baso % (Auto) 0.2 Lymph # (Auto) 0.4 L [place] # (Auto) 0.8 Eos # (Auto) 0.0 Baso # (Auto) 0.0 Abs Immat Gran (auto) 0.12 H Absolute Neuts (auto) 11.6 H Absolute Nucleated RBC 0.000 0.000 Nucleated RBC % (auto) 0.0 0.0 Sodium 139 Potassium 3.6 Chloride 106 Carbon Dioxide 24 Anion Gap 13 BUN 19 H Creatinine 0.71 Estim Creat Clear Calc 93.6 Estimated GFR > 60 Random Glucose 94 Calcium 8.8 D Total Bilirubin 7.1 H 5.6 H Direct Bilirubin 3.4 H AST 197 H 128 H ALT 274 H 202 H Alkaline Phosphatase 149 H 160 H Total Protein 6.2 L 6.1 L Albumin 3.3 L 3.1 L Lipase 1587 H 565 H Microbiology Microbiology Results: Microbiology 02/18/24 09:00 Blood - Venous Blood Culture - Preliminary Gram negative simon 02/18/24 09:00 Blood - Venous Blood Culture - Preliminary Gram negative simon Procedures Date of Service Date of Service: 02/19/24 Progress Note: A&P Assessment and plan (1) Biliary acute pancreatitis: Status: Acute Assessment and Plan: Imp: Clinically stable and still symptomatic from his pancreatitis. His exam is c/w an ileus. However, his LFT's and lipase are decreasing , c/w passage of a stone or sludge. Rec: Would keep NPO except for ice and sips. Continue antibiotics. Maximize OOB activity. F/U labs in AM. I still don't think he needs an urgent ERCP, nor an ERCP in the future, if things continue to progress in the right direction. Will follow along. D/W patient in detail and he is comfortable with this plan. Thanks. Time Spent With Patient Time: Total time managing care of this patient today ____ minutes. Quality Stroke Does the patient have a stroke diagnosis?: No VTE Prior VTE?: No VTE Risk Level:: Medical - moderate - high VTE Device Contraindication: N/A - Device Ordered VTE Drug Contraindication: N/A - Med Ordered
[2024-02-19] MEDS: amLODIPine Besylate 5 MG TABLET PO (20:20)
[2024-02-20] VITALS (8 sets, daily range): BP systolic 138–157; BP diastolic 70–76; PULSE 92–109; RESP 16–20; TEMP 36.6–37.3; O2SAT 93–97
[2024-02-20] MEDS: Piperacillin Sodium/Tazobactam 3.375 GM in 0.9 % Sodium Chloride 50 ML IV (02:20)
[2024-02-20] MEDS: HYDROmorphone HCl 0.5 MG/0.5 ML SYRINGE IVPUSH (02:22)
[2024-02-20] MEDS: Acetaminophen 325 MG TABLET 650 MG PO ×2 (04:05→10:31)
[2024-02-20] MEDS: ondansetron HCL 4 MG/2 ML VIAL IVPUSH ×2 (04:06→09:54)
[2024-02-20] MEDS: Lactated Ringers 1,000 ML 150 ML IVCONT ×2 (05:34→09:47)
[2024-02-20] MEDS: Pantoprazole Sodium 40 MG/10 ML VIAL IVPUSH ×2 (05:34→17:23)
[2024-02-20] MEDS: HYDROmorphone HCl 0.5 MG/0.5 ML SYRINGE 1 MG IVPUSH ×2 (06:37→10:03)
[2024-02-20 07:11] LABS: MANUAL DIFF FLAG NO
[2024-02-20 07:16] LABS: Basophils Percent Auto 0.1 % (0-2); Eosinophils Percent Auto 0.1 % (0-4); Hematocrit 34.4 % (42.0-52.0); Imm Gran Abs Auto 0.12 X10*3/uL (0.00-0.03); Lymphocytes Absolute Auto 0.5 X10*3/uL (1.2-4.9); Lymphocytes Percent Auto 4.1 % (20-40); Mean Corpuscular HGB Conc 34.9 g/dl (31.0-36.0); Mean Corpuscular Hemoglobin 31.9 pg (27.0-33.0); Mean Corpuscular Volume 91.5 fL (80.0-98.0); Mean Platelet Volume 9.8 fL (9.4-12.4); Monocytes Absolute Auto 0.9 X10*3/uL (0.1-1.2); Monocytes Percent Auto 7.1 % (2-11); Neutrophils Absolute Auto 10.9 x10*3/uL (2.0-8.3); Neutrophils Percent Auto 87.6 % (45-73); Platelet Count 147 X10*3/uL (160-400); Red Blood Count 3.76 X10*6/uL (4.60-5.80); Red Cell Distribution Width 14.6 % (11.0-16.0); White Blood Count 12.5 X10*3/uL (4.8-10.8)
--- NOTE | 2024-02-20 07:20 | HO.PM.IMPN ---
Subjective Subjective Date of Service: 02/20/24 Interval History: Seen in follow up for acute pancreatitis Interval history: No overnight events Abd pain improving, currently 2-01/15. No nausea/vomiting. Failed diet advancement yesterday- clears made pain worse. Pt reporting severe (chronic) low back pain Review of Systems Review of Systems: Yes all other systems are reviewed and are negative Physical Exam Vital Signs: Vital Signs: Last Vital Signs Temp 97.9 F 02/20/24 03:29 Pulse 105 H 02/20/24 03:29 Resp 20 02/20/24 06:37 BP 157/76 H 02/20/24 03:29 Pulse Ox 96 02/20/24 03:29 O2 Del Method Nasal Cannula 02/20/24 03:29 O2 Flow Rate 1 02/20/24 03:29 BMI result Body Mass Index 29.5 Constitutional - Awake and Alert, No apparent distress Eyes - PERRLA, EOMI Cardiovascular - S1S2, RRR, No edema Respiratory - Normal lung expansion, Normal respiratory effort, No respiratory distress, CTA bilaterally Gastrointestinal - mild distension, diffusely tender to palpation with some guarding. +BS; No rebound Extremities - no calf tenderness bilaterally, no swelling Skin - Warm/Dry. No jaundice Neurological - Alert & oriented x3 on initial exam and lucid, lethargic but arousable on reexam following dilaudid administration Psychological - Appropriate affect Objective Data Active Medications Acetaminophen (Acetaminophen 325 Mg Tablet) 650 mg PO Q6H PRN PRN Reason: Pain, Mild (Pain Scale 1-3) Last Admin: 02/20/24 04:05 Dose: 650 mg Documented By: SWAPNA Amlodipine Besylate (Amlodipine Besylate 5 Mg Tablet) 5 mg PO BEDTIME [facility]; Protocol Last Admin: 02/19/24 20:20 Dose: 5 mg Documented By: SWAPNA Enoxaparin Sodium (Enoxaparin Sodium 40 Mg/0.4 Ml Syringe) 40 mg SUBCUT Q24H [facility] Last Admin: 02/19/24 09:14 Dose: 40 mg Documented By: ESTEBAN Hydromorphone HCl (Hydromorphone Hcl 0.5 Mg/0.5 Ml Syringe) 1 mg IVPUSH Q3H PRN; Protocol PRN Reason: Pain, Severe (Pain Scale 7-10) Last Admin: 02/20/24 06:37 Dose: 1 mg Documented By: SWAPNA Lactated Ringer's (Lr) 1,000 mls @ 150 mls/hr IVCONT .Q6H40M [facility] Last Admin: 02/20/24 05:34 Dose: 150 mls/hr Documented By: SWAPNA Piperacillin Sod/Tazobactam (Sod 3.375 gm/ Sodium Chloride) 50 mls @ 100 mls/hr IV Q6H [facility] Last Infusion: 02/20/24 03:30 Dose: Infused Documented By: SWAPNA Metoprolol Tartrate (Metoprolol Tartrate 25 Mg Tablet) 25 mg PO BID [facility]; Protocol Last Admin: 02/19/24 20:20 Dose: 25 mg Documented By: SWAPNA Ondansetron HCl (Ondansetron Hcl 4 Mg/2 Ml Vial) 4 mg IVPUSH Q6H PRN PRN Reason: Nausea and Vomiting Last Admin: 02/20/24 04:06 Dose: 4 mg Documented By: SWAPNA Pantoprazole Sodium (Pantoprazole Sodium 40 Mg/10 Ml Vial) 40 mg IVPUSH BID@0630,1630 [facility] Last Admin: 02/20/24 05:34 Dose: 40 mg Documented By: SWAPNA Sodium Chloride (0.9 % Sodium Chloride Flush 3 Ml Syringe) 3 ml IVFLUSH QSHIFT [facility] Last Admin: 02/19/24 22:49 Dose: Not Given Documented By: SWAPNA Non-Admin Reason: Previously Administered Labs 02/20/24 06:22 02/20/24 06:22 Labs: Laboratory Results - last 24 hr 02/19/24 02/20/24 06:40 06:22 MCV 93.0 91.5 MCH 32.2 31.9 MCHC 34.6 34.9 RDW 15.1 14.6 Plt Count 165 147 L MPV 10.2 9.8 Immature Gran % (Auto) 1.0 H Neut % (Auto) 87.6 H Lymph % (Auto) 4.1 L [place] % (Auto) 7.1 Eos % (Auto) 0.1 Baso % (Auto) 0.1 Lymph # (Auto) 0.5 L [place] # (Auto) 0.9 Eos # (Auto) 0.0 Baso # (Auto) 0.0 Abs Immat Gran (auto) 0.12 H Absolute Neuts (auto) 10.9 H Absolute Nucleated RBC 0.000 0.000 Nucleated RBC % (auto) 0.0 0.0 Anion Gap 13 Estim Creat Clear Calc 93.6 Estimated GFR > 60 Random Glucose 94 Calcium 8.8 D Total Bilirubin 5.6 H AST 128 H ALT 202 H Alkaline Phosphatase 160 H Total Protein 6.1 L Albumin 3.1 L Lipase 565 H Microbiology Microbiology Results: Microbiology 02/18/24 09:00 Blood Culture - Final Blood - Venous Klebsiella pneumoniae 02/18/24 09:00 Blood Culture - Final Blood - Venous Klebsiella pneumoniae Assessment and Plan (1) Acute pancreatitis: Status: Acute (2) Abnormal LFTs: Status: Acute (3) Bacteremia due to Klebsiella pneumoniae: Status: Acute Plan 73 yo M with a PMH of CAD, HTN, GERD, gall stones s/p cholecystectomy complicated by liver hematoma, 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 His work up is consistent with pancreatitis likely secondary to gallstones. #Acute biliary pancreatitis/cholangitis/obstructive jaundice bowel rest, IVF, IV analgesics MRCP shows tiny filling defects in the distal CBD questionable for small stones/sludge. Mild interstitial pancreatitis noted. 1.3cm lesion R lobe liver, seen on prior imaging studies Suspect passed sludge/stone IV ceftriaxone bili trending down, jaundice resolved did not tolerate trial of clears 02/18, continue npo except ice and sips, advance as tolerated Wean narcotic medication as tolerated. Add oxycodone to bridge and push off iv narcotic use as tolerated GI input appreciated #Klebsiella bacteremia febrile at home, afebrile since arrival likely due to above Sensitive to ceftriaxone. IV zosyn (initiated 02/17) changed to 2g iv ctx 02/19 #Acute on chronic low back pain complicating narcotic management trial prednisone 40mg daily. lidocaine patch additional pain management as above encourage oob- discussed with nursing staff #Hypoxia mild, around 89-90 likely due to hypoventilation due to pain monitor and keep sats >92 add and encourage IS #HTN resume metoprolol, losartan, and amlodipine #History PE/DVT s/p IVF filter -- not on OAC (had liver hematoma) Full Code DVT pptx, lovenox Pt requires ongoing inpt stay due persistent severe abd pain with guarding requiring IVF and iv narcotics, advancement of diet as well as IV abx for bacteremia as well as expert consulation Quality Stroke Does the patient have a stroke diagnosis?: No VTE Prior VTE?: No VTE Risk Level:: Medical - moderate - high VTE Device Contraindication: N/A - Device Ordered VTE Drug Contraindication: N/A - Med Ordered
[2024-02-20 07:26] LABS: INTERNATIONAL NORM RATIO 1.1 (0.9-1.1); Prothrombin Time 13.5 SEC (11.1-13.3)
[2024-02-20 07:45] LABS: Alanine Aminotransferase 122 U/L (0-40); Albumin Level 3.1 g/dL (3.5-5.0); Alkaline Phosphatase 161 U/L (39-117); Anion Gap 12 (12-20); Aspartate Amino Transferase 58 U/L (5-37); Bilirubin Direct 1.5 mg/dL (0.0-0.5); Bilirubin Total 3.1 mg/dL (0.0-1.0); Blood Urea Nitrogen 15 mg/dL (9-16); Calcium 8.9 mg/dL (8.4-10.2); Carbon Dioxide 25 mmol/L (22-29); Chloride 103 mmol/L (96-108); Creatinine Clr Calc Pharmacy 112.7; Estimated Glomerular Filt Rate > 60; Glucose Fasting 86 mg/dL (60-99); Lipase 114 U/L (8-78); Potassium 3.2 mmol/L (3.3-5.1); Sodium 137 mmol/L (135-145); Total Protein 6.2 g/dL (6.5-8.0)
[2024-02-20] MEDS: Potassium Chloride ER 20 MEQ TAB.ER.PRT 40 MEQ PO (09:47)
[2024-02-20] MEDS: Enoxaparin Sodium 40 MG/0.4 ML SYRINGE SUBCUT (09:48)
[2024-02-20] MEDS: Metoprolol Tartrate 25 MG TABLET PO ×2 (09:48→20:34)
[2024-02-20] MEDS: 0.9 % Sodium Chloride Flush 3 ML SYRINGE IVFLUSH ×3 (09:48→20:37)
[2024-02-20] MEDS: cefTRIAXone sodium 2 GM in 0.9 % Sodium Chloride 50 ML IV (09:48)
[2024-02-20] MEDS: predniSONE 20 MG TABLET 40 MG PO (10:31)
[2024-02-20] MEDS: Lidocaine 4 % Patch ADH..PATCH 1 PATCH TRANSDERMA (10:33)
[2024-02-20] MEDS: oxyCODONE HCl Immed Release 5 MG TABLET PO ×2 (14:28→20:35)
--- NOTE | 2024-02-20 15:08 | PM.CNGS ---
History of Present Illness Consult details Consult date: 02/19/24 Narrative: Patient is a 73-year-old male who is approximately 3 months status post laparoscopic converted open cholecystectomy for gallbladder fossa bleeding who now presents with signs and symptoms consistent with choledocholithiasis and gallstone pancreatitis. Chart was reviewed and patient evaluated. [facility] Past Medical History Medical History Pulmonary embolism Postoperative anemia due to acute blood loss Pauline disease Hematoma GERD (gastroesophageal reflux disease) Elevated cholesterol Low back pain Depression CAD (coronary artery disease) Stable angina Gallstones Scoliosis Carpal tunnel syndrome C2 cervical fracture Arthritis Hypertension Family History Family History Father HTN (hypertension) Cardiac arrest Mother HTN (hypertension) Stroke Sister HTN (hypertension) Cancer Surgical History Surgical History S/P laparoscopic cholecystectomy Hx of carpal tunnel repair History of esophagogastroduodenoscopy (EGD) H/O colonoscopy History of cardiac cath Social History Social History Household Members: Spouse Household Members Other:: tereza Housing: House Are you a primary health care marketing specialist to a significant other at home: No Do you presently have visiting nurse or other home services: No Unable to assess alcohol history related to: Unable to respond Alcohol intake: never Patient Tobacco Use Status: Former Tobacco user Quit Date: 1970 Tobacco use type: Cigarette Years Smoked: 3 +/- Smoked in Last 30 Days: No Use of substances other than those prescribed or required for medical reasons: No Currently Displaying Signs/Symptoms of Drug Intoxication Withdrawal: No Have you been hit, kicked, punched, or otherwise hurt by someone within the past year? If so, by whom?: No Do you feel safe in your current relationship?: Yes Is there a partner from a previous relationship who is making you feel unsafe now?: No Are you made to feel afraid or neglected: No Advance Directives: No Advance Directives Information Provided: No Do you have thoughts of harming others: None Do you have a plan to hurt others: No Plan Recently lost weight without trying: Yes How much weight loss: 14-23 pounds Eating poorly because of decreased appetite: No Nutrition screen score: 4 Nutrition Risks: No Nutritional Risk Poor oral hygiene: No service: No Meds Allergies Allergy/AdvReac Type Severity Reaction Status Date / Time No Known Allergies Allergy Verified 02/18/24 04:17 Active Medications: Current Medications Acetaminophen (Acetaminophen 325 Mg Tablet) 650 mg PO Q6H PRN PRN Reason: Pain, Mild (Pain Scale 1-3) Last Admin: 02/20/24 10:31 Dose: 650 mg Amlodipine Besylate (Amlodipine Besylate 5 Mg Tablet) 5 mg PO BEDTIME LEYLA; Protocol Last Admin: 02/19/24 20:20 Dose: 5 mg Enoxaparin Sodium (Enoxaparin Sodium 40 Mg/0.4 Ml Syringe) 40 mg SUBCUT Q24H LYELA Last Admin: 02/20/24 09:48 Dose: 40 mg Hydromorphone HCl (Hydromorphone Hcl 0.5 Mg/0.5 Ml Syringe) 0.5 mg IVPUSH Q3H PRN; Protocol PRN Reason: Pain, Severe (Pain Scale 7-10) Ceftriaxone Sodium 2 gm/ (Sodium Chloride) 50 mls @ 100 mls/hr IV Q24H [facility] Last Infusion: 02/20/24 10:59 Dose: Infused Lidocaine (Lidocaine 4 % Patch Adh..Patch) 1 patch TRANSDERMA DAILY LEYLA; Protocol Last Admin: 02/20/24 10:33 Dose: 1 patch Losartan Potassium (Losartan Potassium 50 Mg Tablet) 100 mg PO BEDTIME LEYLA; Protocol Metoprolol Tartrate (Metoprolol Tartrate 25 Mg Tablet) 25 mg PO BID LEYLA; Protocol Last Admin: 02/20/24 09:48 Dose: 25 mg Ondansetron HCl (Ondansetron Hcl 4 Mg/2 Ml Vial) 4 mg IVPUSH Q6H PRN PRN Reason: Nausea and Vomiting Last Admin: 02/20/24 09:54 Dose: 4 mg Oxycodone HCl (Oxycodone Hcl Immed Release 5 Mg Tablet) 5 mg PO Q6H PRN PRN Reason: Pain, Moderate(Pain Scale 4-6) Last Admin: 02/20/24 14:28 Dose: 5 mg Pantoprazole Sodium (Pantoprazole Sodium 40 Mg/10 Ml Vial) 40 mg IVPUSH BID@0630,1630 [facility] Last Admin: 02/20/24 05:34 Dose: 40 mg Prednisone (Prednisone 20 Mg Tablet) 40 mg PO DAILY [facility] Last Admin: 02/20/24 10:31 Dose: 40 mg Sodium Chloride (0.9 % Sodium Chloride Flush 3 Ml Syringe) [facility] Last Admin: 02/20/24 14:28 Dose: 3 ml Home Medications ?Medication ?Instructions ?Recorded ?Confirmed ?Last Taken ?Type aspirin 81 mg tablet,delayed 81 mg PO DAILY 01/13/21 02/18/24 11/09/23 History release (Adult Low Dose Aspirin) atorvastatin 20 mg tablet 20 mg PO Q OTHER DAY 01/13/21 02/18/24 02/17/24 History losartan 100 mg tablet 100 mg PO BEDTIME 01/13/21 02/18/24 11/09/23 History omeprazole 40 mg capsule,delayed 40 mg PO BEDTIME 01/13/21 02/18/24 11/09/23 History release tramadol 50 mg tablet 50 mg PO BID PRN Pain 01/13/21 02/18/24 Unknown History acetaminophen 500 mg tablet 500 mg PO Q6H PRN Pain 11/03/23 02/18/24 Unknown History cholecalciferol (vitamin D3) 25 25 mcg PO DAILY 11/03/23 02/18/24 11/09/23 History mcg (1,000 unit) capsule glucosamine-chondroitin 500 mg-400 1 cap PO DAILY 11/03/23 02/18/24 11/09/23 History mg capsule magnesium oxide 500 mg PO DAILY 11/03/23 02/18/24 11/09/23 History mecobalamin (vitamin B12) 2,500 3,000 mcg PO DAILY 11/03/23 02/18/24 11/09/23 History mcg chewable tablet amlodipine 5 mg tablet 5 mg PO BEDTIME 11/05/23 02/18/24 11/09/23 History Physical Exam Vital Signs: Vital Signs: Last Vital Signs Temp 98.3 F 02/20/24 12:00 Pulse 92 02/20/24 12:00 Resp 20 02/20/24 12:00 BP 138/73 02/20/24 12:00 Pulse Ox 93 02/20/24 12:00 O2 Del Method Room Air 02/20/24 12:00 O2 Flow Rate 2 02/20/24 07:26 BMI result Body Mass Index 29.5 Const: Other: Patient in moderate abdominal distress secondary to presumed gallstone pancreatitis Eyes: Other: Icteric GI: Other: Marked epigastric tenderness. Mild abdominal distention midline wound well healed Results Labs 02/20/24 06:22 02/20/24 06:22 Labs: Abnormal lab results 02/20/24 Range/Units 06:22 WBC 12.5 H (4.8-10.8) X10*3/uL RBC 3.76 L (4.60-5.80) X10*6/uL Hgb 12.0 L (14.0-18.0) g/dl Hct 34.4 L (42.0-52.0) % Plt Count 147 L (160-400) X10*3/uL Immature Gran % (Auto) 1.0 H (0.0-0.4) % Neut % (Auto) 87.6 H (45-73) % Lymph % (Auto) 4.1 L (20-40) % Lymph # (Auto) 0.5 L (1.2-4.9) X10*3/uL Abs Immat Gran (auto) 0.12 H (0.00-0.03) X10*3/uL Absolute Neuts (auto) 10.9 H (2.0-8.3) x10*3/uL PT 13.5 H (11.1-13.3) SEC Potassium 3.2 L (3.3-5.1) mmol/L Total Bilirubin 3.1 H (0.0-1.0) mg/dL Direct Bilirubin 1.5 H (0.0-0.5) mg/dL AST 58 H (5-37) U/L ALT 122 H (0-40) U/L Alkaline Phosphatase 161 H (39-117) U/L Total Protein 6.2 L (6.5-8.0) g/dL Albumin 3.1 L (3.5-5.0) g/dL Lipase 114 H (8-78) U/L Short CBC 02/20/24 Range/Units 06:22 WBC 12.5 H (4.8-10.8) X10*3/uL Hgb 12.0 L (14.0-18.0) g/dl Hct 34.4 L (42.0-52.0) % Plt Count 147 L (160-400) X10*3/uL BMP 02/20/24 06:22 Sodium 137 Potassium 3.2 L Chloride 103 Carbon Dioxide 25 BUN 15 Creatinine 0.59 Calcium 8.9 Liver Function 02/20/24 Range/Units 06:22 Total Bilirubin 3.1 H (0.0-1.0) mg/dL Direct Bilirubin 1.5 H (0.0-0.5) mg/dL AST 58 H (5-37) U/L ALT 122 H (0-40) U/L Alkaline Phosphatase 161 H (39-117) U/L Albumin 3.1 L (3.5-5.0) g/dL All other labs normal. Assessment and Plan (1) Biliary acute pancreatitis: Status: Acute Plan Patient is current layer undergoing restorative measures and had GI consultation. If labs improve and clinical symptoms also improved, patient may not need ERCP. We will defer this to Dr. Neves/GI. At present, no acute surgical issues. To follow Procedures Date of Service Date of Service: 02/20/24
--- NOTE | 2024-02-20 15:11 | P.PNGS_ITS ---
Subjective Subjective Date of Service: 02/20/24 Interval history: Patient's abdominal symptoms have markedly improved from yesterday. LFTs and lipase have also dropped considerably. Physical Exam 2 Vital Signs: Vital Signs: Last Vital Signs Temp 98.3 F 02/20/24 12:00 Pulse 92 02/20/24 12:00 Resp 20 02/20/24 12:00 BP 138/73 02/20/24 12:00 Pulse Ox 93 02/20/24 12:00 O2 Del Method Room Air 02/20/24 12:00 O2 Flow Rate 2 02/20/24 07:26 BMI result Body Mass Index 29.5 GI: Other: Midline incision well healed. Minimal epigastric tenderness. Much better than yesterday. No acute abdomen at present. Objective Data Active Medications Acetaminophen (Acetaminophen 325 Mg Tablet) 650 mg PO Q6H PRN PRN Reason: Pain, Mild (Pain Scale 1-3) Last Admin: 02/20/24 10:31 Dose: 650 mg Documented By: ZONIA Amlodipine Besylate (Amlodipine Besylate 5 Mg Tablet) 5 mg PO BEDTIME LEYLA; Protocol Last Admin: 02/19/24 20:20 Dose: 5 mg Documented By: SWAPNA Enoxaparin Sodium (Enoxaparin Sodium 40 Mg/0.4 Ml Syringe) 40 mg SUBCUT Q24H LEYLA Last Admin: 02/20/24 09:48 Dose: 40 mg Documented By: ZONIA Hydromorphone HCl (Hydromorphone Hcl 0.5 Mg/0.5 Ml Syringe) 0.5 mg IVPUSH Q3H PRN; Protocol PRN Reason: Pain, Severe (Pain Scale 7-10) Ceftriaxone Sodium 2 gm/ (Sodium Chloride) 50 mls @ 100 mls/hr IV Q24H LEYLA Last Infusion: 02/20/24 10:59 Dose: Infused Documented By: ZONIA Lidocaine (Lidocaine 4 % Patch Adh..Patch) 1 patch TRANSDERMA DAILY LEYLA; Protocol Last Admin: 02/20/24 10:33 Dose: 1 patch Documented By: ZONIA Losartan Potassium (Losartan Potassium 50 Mg Tablet) 100 mg PO BEDTIME LEYLA; Protocol Metoprolol Tartrate (Metoprolol Tartrate 25 Mg Tablet) 25 mg PO BID LEYLA; Protocol Last Admin: 02/20/24 09:48 Dose: 25 mg Documented By: ZONIA Ondansetron HCl (Ondansetron Hcl 4 Mg/2 Ml Vial) 4 mg IVPUSH Q6H PRN PRN Reason: Nausea and Vomiting Last Admin: 02/20/24 09:54 Dose: 4 mg Documented By: ZONIA Oxycodone HCl (Oxycodone Hcl Immed Release 5 Mg Tablet) 5 mg PO Q6H PRN PRN Reason: Pain, Moderate(Pain Scale 4-6) Last Admin: 02/20/24 14:28 Dose: 5 mg Documented By: ZONIA Pantoprazole Sodium (Pantoprazole Sodium 40 Mg/10 Ml Vial) 40 mg IVPUSH BID@0630,1630 [facility] Last Admin: 02/20/24 05:34 Dose: 40 mg Documented By: SWAPNA Prednisone (Prednisone 20 Mg Tablet) 40 mg PO DAILY [facility] Last Admin: 02/20/24 10:31 Dose: 40 mg Documented By: ZONIA Sodium Chloride (0.9 % Sodium Chloride Flush 3 Ml Syringe) 3 ml IVFLUSH QSHIFT [facility] Last Admin: 02/20/24 14:28 Dose: 3 ml Documented By: ZONIA Labs 02/20/24 06:22 02/20/24 06:22 Labs: Laboratory Results - last 24 hr 02/20/24 06:22 MCV 91.5 MCH 31.9 MCHC 34.9 RDW 14.6 Plt Count 147 L MPV 9.8 Immature Gran % (Auto) 1.0 H Neut % (Auto) 87.6 H Lymph % (Auto) 4.1 L [place] % (Auto) 7.1 Eos % (Auto) 0.1 Baso % (Auto) 0.1 Lymph # (Auto) 0.5 L [place] # (Auto) 0.9 Eos # (Auto) 0.0 Baso # (Auto) 0.0 Abs Immat Gran (auto) 0.12 H Absolute Neuts (auto) 10.9 H Absolute Nucleated RBC 0.000 Nucleated RBC % (auto) 0.0 PT 13.5 H INR 1.1 Anion Gap 12 Estim Creat Clear Calc 112.7 Estimated GFR > 60 Fasting Glucose 86 Calcium 8.9 Total Bilirubin 3.1 H Direct Bilirubin 1.5 H AST 58 H ALT 122 H Alkaline Phosphatase 161 H Total Protein 6.2 L Albumin 3.1 L Lipase 114 H Microbiology Microbiology Results: Microbiology 02/18/24 09:00 Blood Culture - Final Blood - Venous Klebsiella pneumoniae 02/18/24 09:00 Blood Culture - Final Blood - Venous Klebsiella pneumoniae Procedures Date of Service Date of Service: 02/20/24 Progress Note: A&P Assessment and plan (1) Biliary acute pancreatitis: Status: Acute Plan Continue current plan of restorative measures, serial labs, serial exams. Clinically, appears patient has passed his common bile duct stones. To follow. Time Spent With Patient Time: Total time managing care of this patient today ____ minutes. Quality Stroke Does the patient have a stroke diagnosis?: No VTE Prior VTE?: No VTE Risk Level:: Medical - moderate - high VTE Device Contraindication: N/A - Device Ordered VTE Drug Contraindication: N/A - Med Ordered
--- NOTE | 2024-02-20 17:58 | P.PNGI_ITS ---
Subjective Subjective Date of Service: 02/20/24 Interval History: History from the patient, his , and the RN. He reports feeling much better today. He reports passing flatus and denies any abdominal pain. Tolerating liquids and would like to eat. His main issue is his chronic back pain. He has been up and walking though. Critical Care Time (minutes): 0 Physical Exam 2 Vital Signs: Vital Signs: Last Vital Signs Temp 98.3 F 02/20/24 15:22 Pulse 95 02/20/24 15:22 Resp 18 02/20/24 15:22 BP 157/75 H 02/20/24 15:22 Pulse Ox 97 02/20/24 15:22 O2 Del Method Room Air 02/20/24 15:22 O2 Flow Rate 2 02/20/24 07:26 BMI result Body Mass Index 29.5 Const: General: cooperative, healthy appearing, comfortable, no acute distress, well developed, alert and awake GI: Other: Abd- Improved with normal BS, NT, and less distended and tympanitic. Objective Data Labs 02/20/24 06:22 02/20/24 06:22 Labs: Laboratory Results - last 24 hr 02/20/24 06:22 WBC 12.5 H RBC 3.76 L Hgb 12.0 L Hct 34.4 L MCV 91.5 MCH 31.9 MCHC 34.9 RDW 14.6 Plt Count 147 L MPV 9.8 Immature Gran % (Auto) 1.0 H Neut % (Auto) 87.6 H Lymph % (Auto) 4.1 L [place] % (Auto) 7.1 Eos % (Auto) 0.1 Baso % (Auto) 0.1 Lymph # (Auto) 0.5 L [place] # (Auto) 0.9 Eos # (Auto) 0.0 Baso # (Auto) 0.0 Abs Immat Gran (auto) 0.12 H Absolute Neuts (auto) 10.9 H Absolute Nucleated RBC 0.000 Nucleated RBC % (auto) 0.0 PT 13.5 H INR 1.1 Sodium 137 Potassium 3.2 L Chloride 103 Carbon Dioxide 25 Anion Gap 12 BUN 15 Creatinine 0.59 Estim Creat Clear Calc 112.7 Estimated GFR > 60 Fasting Glucose 86 Calcium 8.9 Total Bilirubin 3.1 H Direct Bilirubin 1.5 H AST 58 H ALT 122 H Alkaline Phosphatase 161 H Total Protein 6.2 L Albumin 3.1 L Lipase 114 H Microbiology Microbiology Results: Microbiology 02/18/24 09:00 Blood - Venous Blood Culture - Final Klebsiella pneumoniae 02/18/24 09:00 Blood - Venous Blood Culture - Final Klebsiella pneumoniae Procedures Date of Service Date of Service: 02/20/24 Progress Note: A&P Assessment and plan (1) Biliary acute pancreatitis: Status: Acute Assessment and Plan: Imp: Clinically much improved today in regard to his symptoms, exam, and labs. This remains c/w his having passed a stone and/or sludge. Given the GNR sepsis, I would recommend holding off on steroids for his back. D/W Dr. Odell. Rec: Continue current management. F/U labs in AM. Advance diet tomorrow if remains stable.I will continue to hold off on ERCP as long as things continue to progress. D/W patient and his in detail. They are comfortable with this plan. Thanks Time Spent With Patient Time: Total time managing care of this patient today ____ minutes. Quality Stroke Does the patient have a stroke diagnosis?: No VTE Prior VTE?: No VTE Risk Level:: Medical - moderate - high VTE Device Contraindication: N/A - Device Ordered VTE Drug Contraindication: N/A - Med Ordered
[2024-02-20] MEDS: Losartan Potassium 50 MG TABLET 100 MG PO (20:34)
[2024-02-20] MEDS: amLODIPine Besylate 5 MG TABLET PO (20:35)
[2024-02-20] MEDS: Calcium Carbonate 750 MG TAB.CHEW PO (23:02)
[2024-02-21] VITALS (11 sets, daily range): BP systolic 127–165; BP diastolic 72–89; PULSE 87–110; RESP 16–20; TEMP 36.5–38.2; O2SAT 90–99
[2024-02-21] MEDS: HYDROmorphone HCl 0.5 MG/0.5 ML SYRINGE IVPUSH ×6 (03:51→20:24)
[2024-02-21] MEDS: Magnesium Hydrox/Alum Hydrox 30 ML ORAL.SUSP PO (03:57)
[2024-02-21] MEDS: Acetaminophen 325 MG TABLET 650 MG PO ×2 (06:07→22:12)
[2024-02-21] MEDS: Pantoprazole Sodium 40 MG/10 ML VIAL IVPUSH ×2 (06:08→17:22)
[2024-02-21 06:43] LABS: MANUAL DIFF FLAG NO
[2024-02-21 06:54] LABS: Basophils Percent Auto 0.1 % (0-2); Eosinophils Percent Auto 0.1 % (0-4); Hematocrit 33.5 % (42.0-52.0); Hemoglobin 11.9 g/dl (14.0-18.0); Imm Gran Abs Auto 0.07 X10*3/uL (0.00-0.03); Imm Gran Pct Auto 0.5 % (0.0-0.4); Lymphocytes Absolute Auto 0.6 X10*3/uL (1.2-4.9); Lymphocytes Percent Auto 4.7 % (20-40); Mean Corpuscular HGB Conc 35.5 g/dl (31.0-36.0); Mean Corpuscular Hemoglobin 32.3 pg (27.0-33.0); Mean Platelet Volume 9.7 fL (9.4-12.4); Monocytes Absolute Auto 0.9 X10*3/uL (0.1-1.2); Monocytes Percent Auto 6.8 % (2-11); Neutrophils Absolute Auto 11.7 x10*3/uL (2.0-8.3); Neutrophils Percent Auto 87.8 % (45-73); Platelet Count 180 X10*3/uL (160-400); Red Blood Count 3.68 X10*6/uL (4.60-5.80); Red Cell Distribution Width 14.2 % (11.0-16.0); White Blood Count 13.4 X10*3/uL (4.8-10.8)
[2024-02-21 07:21] LABS: Alanine Aminotransferase 83 U/L (0-40); Albumin Level 3.1 g/dL (3.5-5.0); Alkaline Phosphatase 135 U/L (39-117); Anion Gap 12 (12-20); Aspartate Amino Transferase 32 U/L (5-37); Bilirubin Direct 0.8 mg/dL (0.0-0.5); Bilirubin Total 1.8 mg/dL (0.0-1.0); Blood Urea Nitrogen 12 mg/dL (9-16); Carbon Dioxide 25 mmol/L (22-29); Chloride 103 mmol/L (96-108); Creatinine Clr Calc Pharmacy 102.3; Estimated Glomerular Filt Rate > 60; Glucose Fasting 106 mg/dL (60-99); Lipase 27 U/L (8-78); Sodium 137 mmol/L (135-145); Total Protein 6.4 g/dL (6.5-8.0)
[2024-02-21] MEDS: Enoxaparin Sodium 40 MG/0.4 ML SYRINGE SUBCUT (08:25)
[2024-02-21] MEDS: cefTRIAXone sodium 2 GM in 0.9 % Sodium Chloride 50 ML IV (08:25)
[2024-02-21] MEDS: Metoprolol Tartrate 25 MG TABLET PO ×2 (08:25→20:24)
[2024-02-21] MEDS: Potassium Chloride ER 20 MEQ TAB.ER.PRT 40 MEQ PO (08:25)
[2024-02-21] MEDS: 0.9 % Sodium Chloride Flush 3 ML SYRINGE IVFLUSH ×3 (08:26→20:27)
[2024-02-21] MEDS: Lidocaine 4 % Patch ADH..PATCH 1 PATCH TRANSDERMA (08:26)
--- NOTE | 2024-02-21 08:53 | P.PNGS_ITS ---
Subjective Subjective Date of Service: 02/22/24 Interval history: says he has some cramping with food passing flatus, had BM no vomitting Physical Exam 2 Vital Signs: Vital Signs: Last Vital Signs Temp 98.5 F 02/21/24 07:23 Pulse 100 02/21/24 07:23 Resp 18 02/21/24 07:23 BP 127/80 02/21/24 07:23 Pulse Ox 96 02/21/24 07:23 O2 Del Method Nasal Cannula 02/21/24 07:23 O2 Flow Rate 2 02/21/24 07:23 BMI result Body Mass Index 29.5 Const: General: comfortable Resp: Other: mild shortness of breath with talking Cardio: Rate: regular rate GI: Palpation (GI): Soft to palpation, not firm, nontender and no guarding Objective Data Active Medications Acetaminophen (Acetaminophen 325 Mg Tablet) 650 mg PO Q6H PRN PRN Reason: Pain, Mild (Pain Scale 1-3) Last Admin: 02/21/24 06:07 Dose: 650 mg Documented By: DIVINA Amlodipine Besylate (Amlodipine Besylate 5 Mg Tablet) 5 mg PO BEDTIME LEYLA; Protocol Last Admin: 02/20/24 20:35 Dose: 5 mg Documented By: ZONIA Calcium Carbonate (Calcium Carbonate 750 Mg Tab.Chew) 750 mg PO Q6H PRN PRN Reason: Heartburn Last Admin: 02/20/24 23:02 Dose: 750 mg Documented By: ZONIA Enoxaparin Sodium (Enoxaparin Sodium 40 Mg/0.4 Ml Syringe) 40 mg SUBCUT Q24H [facility] Last Admin: 02/21/24 08:25 Dose: 40 mg Documented By: BRIDGET Hydromorphone HCl (Hydromorphone Hcl 0.5 Mg/0.5 Ml Syringe) 0.5 mg IVPUSH Q3H PRN; Protocol PRN Reason: Pain, Severe (Pain Scale 7-10) Last Admin: 02/21/24 03:51 Dose: 0.5 mg Documented By: DIVINA Ceftriaxone Sodium 2 gm/ (Sodium Chloride) 50 mls @ 100 mls/hr IV Q24H [facility] Last Admin: 02/21/24 08:25 Dose: 100 mls/hr Documented By: BRIDGET Lidocaine (Lidocaine 4 % Patch Adh..Patch) 1 patch TRANSDERMA DAILY [facility]; Protocol Last Admin: 02/21/24 08:26 Dose: 1 patch Documented By: BRIDGET Losartan Potassium (Losartan Potassium 50 Mg Tablet) 100 mg PO BEDTIME [facility]; Protocol Last Admin: 02/20/24 20:34 Dose: 100 mg Documented By: ZONIA Metoprolol Tartrate (Metoprolol Tartrate 25 Mg Tablet) 25 mg PO BID [facility]; Protocol Last Admin: 02/21/24 08:25 Dose: 25 mg Documented By: BRIDGET Ondansetron HCl (Ondansetron Hcl 4 Mg/2 Ml Vial) 4 mg IVPUSH Q6H PRN PRN Reason: Nausea and Vomiting Last Admin: 02/20/24 09:54 Dose: 4 mg Documented By: ZONIA Oxycodone HCl (Oxycodone Hcl Immed Release 5 Mg Tablet) 5 mg PO Q6H PRN PRN Reason: Pain, Moderate(Pain Scale 4-6) Last Admin: 02/20/24 20:35 Dose: 5 mg Documented By: ZONIA Pantoprazole Sodium (Pantoprazole Sodium 40 Mg/10 Ml Vial) 40 mg IVPUSH BID@0630,1630 [facility] Last Admin: 02/21/24 06:08 Dose: 40 mg Documented By: DIVINA Sodium Chloride (0.9 % Sodium Chloride Flush 3 Ml Syringe) 3 ml IVFLUSH QSHIFT [facility] Last Admin: 02/21/24 08:26 Dose: 3 ml Documented By: BRIDGET Labs 02/22/24 06:36 02/22/24 06:36 Labs: Laboratory Results - last 24 hr 02/21/24 06:26 MCV 91.0 MCH 32.3 MCHC 35.5 RDW 14.2 Plt Count 180 MPV 9.7 Immature Gran % (Auto) 0.5 H Neut % (Auto) 87.8 H Lymph % (Auto) 4.7 L [place] % (Auto) 6.8 Eos % (Auto) 0.1 Baso % (Auto) 0.1 Lymph # (Auto) 0.6 L [place] # (Auto) 0.9 Eos # (Auto) 0.0 Baso # (Auto) 0.0 Abs Immat Gran (auto) 0.07 H Absolute Neuts (auto) 11.7 H Absolute Nucleated RBC 0.000 Nucleated RBC % (auto) 0.0 Anion Gap 12 Estim Creat Clear Calc 102.3 Estimated GFR > 60 Fasting Glucose 106 H Calcium 9.0 Total Bilirubin 1.8 H Direct Bilirubin 0.8 H AST 32 ALT 83 H Alkaline Phosphatase 135 H Total Protein 6.4 L Albumin 3.1 L Lipase 27 Microbiology Microbiology Results: Microbiology 02/18/24 09:00 Blood Culture - Final Blood - Venous Klebsiella pneumoniae 02/18/24 09:00 Blood Culture - Final Blood - Venous Klebsiella pneumoniae Procedures Date of Service Date of Service: 02/22/24 Progress Note: A&P Assessment and plan (1) Bacteremia due to Klebsiella pneumoniae: Status: Acute Assessment and Plan: had abnormal LFTS on admission bili not much improved may have passed residual stone? he still gets crampy with oral intake will keep on clears PPI follow LFTS exam benign no fever this a.m. Time Spent With Patient Time: Total time managing care of this patient today ____ minutes. Quality Stroke Does the patient have a stroke diagnosis?: No VTE Prior VTE?: No VTE Risk Level:: Medical - moderate - high VTE Device Contraindication: N/A - Device Ordered VTE Drug Contraindication: N/A - Med Ordered
--- NOTE | 2024-02-21 10:25 | HO.PM.IMPN ---
Subjective Subjective Date of Service: 02/21/24 Interval History: epigastric pain Physical Exam Vital Signs: Vital Signs: Last Vital Signs Temp 98.5 F 02/21/24 07:23 Pulse 100 02/21/24 07:23 Resp 18 02/21/24 07:23 BP 127/80 02/21/24 07:23 Pulse Ox 96 02/21/24 07:23 O2 Del Method Nasal Cannula 02/21/24 07:23 O2 Flow Rate 2 02/21/24 07:23 BMI result Body Mass Index 29.5 Const: General: comfortable Resp: Other: mild shortness of breath with talking Cardio: Rate: regular rate GI: Palpation (GI): Soft to palpation, not firm, nontender and no guarding Objective Data Active Medications Acetaminophen (Acetaminophen 325 Mg Tablet) 650 mg PO Q6H PRN PRN Reason: Pain, Mild (Pain Scale 1-3) Last Admin: 02/21/24 06:07 Dose: 650 mg Documented By: DIVINA Amlodipine Besylate (Amlodipine Besylate 5 Mg Tablet) 5 mg PO BEDTIME [facility]; Protocol Last Admin: 02/20/24 20:35 Dose: 5 mg Documented By: ZONIA Calcium Carbonate (Calcium Carbonate 750 Mg Tab.Chew) 750 mg PO Q6H PRN PRN Reason: Heartburn Last Admin: 02/20/24 23:02 Dose: 750 mg Documented By: ZONIA Enoxaparin Sodium (Enoxaparin Sodium 40 Mg/0.4 Ml Syringe) 40 mg SUBCUT Q24H [facility] Last Admin: 02/21/24 08:25 Dose: 40 mg Documented By: BRIDGET Hydromorphone HCl (Hydromorphone Hcl 0.5 Mg/0.5 Ml Syringe) 0.5 mg IVPUSH Q3H PRN; Protocol PRN Reason: Pain, Severe (Pain Scale 7-10) Last Admin: 02/21/24 03:51 Dose: 0.5 mg Documented By: DIVINA Ceftriaxone Sodium 2 gm/ (Sodium Chloride) 50 mls @ 100 mls/hr IV Q24H [facility] Last Infusion: 02/21/24 09:09 Dose: Infused Documented By: BRIDGET Lidocaine (Lidocaine 4 % Patch Adh..Patch) 1 patch TRANSDERMA DAILY [facility]; Protocol Last Admin: 02/21/24 08:26 Dose: 1 patch Documented By: BRIDGET Losartan Potassium (Losartan Potassium 50 Mg Tablet) 100 mg PO BEDTIME [facility]; Protocol Last Admin: 02/20/24 20:34 Dose: 100 mg Documented By: ZONIA Metoprolol Tartrate (Metoprolol Tartrate 25 Mg Tablet) 25 mg PO BID [facility]; Protocol Last Admin: 02/21/24 08:25 Dose: 25 mg Documented By: BRIDGET Ondansetron HCl (Ondansetron Hcl 4 Mg/2 Ml Vial) 4 mg IVPUSH Q6H PRN PRN Reason: Nausea and Vomiting Last Admin: 02/20/24 09:54 Dose: 4 mg Documented By: ZONIA Oxycodone HCl (Oxycodone Hcl Immed Release 5 Mg Tablet) 5 mg PO Q6H PRN PRN Reason: Pain, Moderate(Pain Scale 4-6) Last Admin: 02/20/24 20:35 Dose: 5 mg Documented By: ZONIA Pantoprazole Sodium (Pantoprazole Sodium 40 Mg/10 Ml Vial) 40 mg IVPUSH BID@0630,1630 [facility] Last Admin: 02/21/24 06:08 Dose: 40 mg Documented By: DIVINA Sodium Chloride (0.9 % Sodium Chloride Flush 3 Ml Syringe) 3 ml IVFLUSH QSHIFT [facility] Last Admin: 02/21/24 08:26 Dose: 3 ml Documented By: BRIDGET Labs 02/21/24 06:26 02/21/24 06:26 Labs: Laboratory Results - last 24 hr 02/21/24 06:26 MCV 91.0 MCH 32.3 MCHC 35.5 RDW 14.2 Plt Count 180 MPV 9.7 Immature Gran % (Auto) 0.5 H Neut % (Auto) 87.8 H Lymph % (Auto) 4.7 L [place] % (Auto) 6.8 Eos % (Auto) 0.1 Baso % (Auto) 0.1 Lymph # (Auto) 0.6 L [place] # (Auto) 0.9 Eos # (Auto) 0.0 Baso # (Auto) 0.0 Abs Immat Gran (auto) 0.07 H Absolute Neuts (auto) 11.7 H Absolute Nucleated RBC 0.000 Nucleated RBC % (auto) 0.0 Anion Gap 12 Estim Creat Clear Calc 102.3 Estimated GFR > 60 Fasting Glucose 106 H Calcium 9.0 Total Bilirubin 1.8 H Direct Bilirubin 0.8 H AST 32 ALT 83 H Alkaline Phosphatase 135 H Total Protein 6.4 L Albumin 3.1 L Lipase 27 Microbiology Microbiology Results: Microbiology 02/18/24 09:00 Blood Culture - Final Blood - Venous Klebsiella pneumoniae 02/18/24 09:00 Blood Culture - Final Blood - Venous Klebsiella pneumoniae Assessment and Plan (1) Acute pancreatitis: Status: Acute (2) Abnormal LFTs: Status: Acute (3) Bacteremia due to Klebsiella pneumoniae: Status: Acute Plan 73 yo M with a PMH of CAD, HTN, GERD, gall stones s/p cholecystectomy complicated by liver hematoma, 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 due to gallstone pancreatitis, Acute biliary pancreatitis/cholangitis/obstructive jaundice complicated by klebsiella bacteremia bowel rest, IVF, IV analgesics MRCP shows tiny filling defects in the distal CBD questionable for small stones/sludge. Mild interstitial pancreatitis noted. 1.3cm lesion R lobe liver, seen on prior imaging studies Suspect passed sludge/stone, no need for ercp at this point, patient already s/p cholecystectomy IV ceftriaxone, follow up repeat culture bili trending down, jaundice resolved full liquid diet acute Hypoxic respiratory failure mild, around 89-90 likely due to hypoventilation due to pain monitor and keep sats >92 add and encourage IS HTN resume metoprolol, losartan, and amlodipine History PE/DVT s/p IVF filter -- not on OAC (had liver hematoma) Full Code DVT pptx, lovenox reason for continued hospitalization: not toelrating po Quality Stroke Does the patient have a stroke diagnosis?: No VTE Prior VTE?: No VTE Risk Level:: Medical - moderate - high VTE Device Contraindication: N/A - Device Ordered VTE Drug Contraindication: N/A - Med Ordered
--- NOTE | 2024-02-21 11:05 | MHC.CLN ---
RE: CONSULT PT REPORTED WT LOSS 14-23# ON ADMISSION ASSESSMENT PREVIOUS WT HX FOLLOWS: 83KG (02/18/24) 94KG (11/25/23) 12% SIG CHANGE X 90DAYS 80KG (11/10/23) 4% WT GAIN X 90DAYS 90KG (08/02/23) 8% NONSIGNIFICANT LOSS X 1 YEAR QUESTION VALIDITY OF WEIGHTS IN NOVEMBER R/T LARGE FLUCTUATIONS PT REMAINS OBESE FOR HT WITH BMI 29.5 NOTED FREQUENT PREDNISONE USE CAN CAUSE WT FLUCTUATIONS MONITOR PO INTAKE AND CONTINUE CURRENT PLAN OF CARE RD TO FOLLOW WEEKLY
[2024-02-21] MEDS: oxyCODONE HCl Immed Release 5 MG TABLET PO ×2 (15:32→22:12)
[2024-02-21] MEDS: Losartan Potassium 50 MG TABLET 100 MG PO (20:24)
[2024-02-21] MEDS: amLODIPine Besylate 5 MG TABLET PO (20:24)
--- NOTE | 2024-02-22 00:52 | PC.NURSE ---
Pt requesting a Lidoderm patch for his back.Dr Durbin notified and informed that scheduled Lidoderm patch is for 0900. states ok to give 0900 Lidoderm patch now.
[2024-02-22] MEDS: Lidocaine 4 % Patch ADH..PATCH 1 PATCH TRANSDERMA (01:01)
[2024-02-22] MEDS: HYDROmorphone HCl 0.5 MG/0.5 ML SYRINGE IVPUSH ×3 (01:07→07:31)
[2024-02-22 03:59] VITALS: BP 165/81; PULSE 97; RESP 20; TEMP 36.7; O2SAT 95
[2024-02-22 07:20] VITALS: BP 158/87; PULSE 99; RESP 18; TEMP 36.4; O2SAT 94
[2024-02-22] MEDS: oxyCODONE HCl Immed Release 5 MG TABLET PO ×3 (07:31→15:37)
[2024-02-22] MEDS: Metoprolol Tartrate 25 MG TABLET PO ×2 (07:31→19:55)
[2024-02-22] MEDS: 0.9 % Sodium Chloride Flush 3 ML SYRINGE IVFLUSH ×2 (07:37→17:05)
[2024-02-22 07:40] LABS: Hematocrit 33.3 % (42.0-52.0); Hemoglobin 11.8 g/dl (14.0-18.0); Mean Corpuscular HGB Conc 35.4 g/dl (31.0-36.0); Mean Corpuscular Hemoglobin 32.6 pg (27.0-33.0); Mean Platelet Volume 9.8 fL (9.4-12.4); Platelet Count 225 X10*3/uL (160-400); Red Blood Count 3.62 X10*6/uL (4.60-5.80); Red Cell Distribution Width 14.3 % (11.0-16.0); White Blood Count 13.2 X10*3/uL (4.8-10.8)
[2024-02-22 07:55] LABS: Alanine Aminotransferase 63 U/L (0-40); Albumin Level 3.2 g/dL (3.5-5.0); Alkaline Phosphatase 126 U/L (39-117); Anion Gap 12 (12-20); Aspartate Amino Transferase 28 U/L (5-37); Bilirubin Direct 0.7 mg/dL (0.0-0.5); Bilirubin Total 1.5 mg/dL (0.0-1.0); Blood Urea Nitrogen 13 mg/dL (9-16); Calcium 9.1 mg/dL (8.4-10.2); Carbon Dioxide 25 mmol/L (22-29); Chloride 102 mmol/L (96-108); Estimated Glomerular Filt Rate > 60; Glucose Fasting 109 mg/dL (60-99); Magnesium 1.9 mg/dL (1.6-2.6); Sodium 136 mmol/L (135-145); Total Protein 6.4 g/dL (6.5-8.0)
--- NOTE | 2024-02-22 08:23 | PM.PNGS ---
Subjective Subjective Date of Service: 02/23/24 Interval history: Tired this morning Says he still has some epigastric pain periodically with food No nausea or vomiting Passing flatus Physical Exam Vital Signs: Vital Signs: Last Vital Signs Temp 97.6 F 02/22/24 07:20 Pulse 99 02/22/24 07:20 Resp 18 02/22/24 07:20 BP 158/87 H 02/22/24 07:20 Pulse Ox 94 02/22/24 07:20 O2 Del Method Room Air 02/22/24 07:20 O2 Flow Rate 2 02/22/24 03:59 BMI result Body Mass Index 29.5 Const: General: no acute distress Resp: Effort & Inspection: normal respiratory effort Cardio: Rhythm: regular rhythm GI: Palpation (GI): Soft to palpation, not firm, nontender and no guarding Objective Data Active Medications Acetaminophen (Acetaminophen 325 Mg Tablet) 650 mg PO Q6H PRN PRN Reason: Fever >100.4 and pain Last Admin: 02/21/24 22:12 Dose: 650 mg Documented By: SIRI Amlodipine Besylate (Amlodipine Besylate 5 Mg Tablet) 5 mg PO BEDTIME [facility]; Protocol Last Admin: 02/21/24 20:24 Dose: 5 mg Documented By: SIRI Calcium Carbonate (Calcium Carbonate 750 Mg Tab.Chew) 750 mg PO Q6H PRN PRN Reason: Heartburn Last Admin: 02/20/24 23:02 Dose: 750 mg Documented By: ZONIA Enoxaparin Sodium (Enoxaparin Sodium 40 Mg/0.4 Ml Syringe) 40 mg SUBCUT Q24H [facility] Last Admin: 02/21/24 08:25 Dose: 40 mg Documented By: BRIDGET Hydromorphone HCl (Hydromorphone Hcl 0.5 Mg/0.5 Ml Syringe) 0.5 mg IVPUSH Q3H PRN; Protocol PRN Reason: Pain, Severe (Pain Scale 7-10) Last Admin: 02/22/24 07:31 Dose: 0.5 mg Documented By: BEATRICE Ceftriaxone Sodium 2 gm/ (Sodium Chloride) 50 mls @ 100 mls/hr IV Q24H [facility] Last Infusion: 02/21/24 09:09 Dose: Infused Documented By: BRIDGET Lidocaine (Lidocaine 4 % Patch Adh..Patch) 1 patch TRANSDERMA DAILY [facility]; Protocol Last Admin: 02/22/24 01:01 Dose: 1 patch Documented By: WILFRED Losartan Potassium (Losartan Potassium 50 Mg Tablet) 100 mg PO BEDTIME [facility]; Protocol Last Admin: 02/21/24 20:24 Dose: 100 mg Documented By: SIRI Metoprolol Tartrate (Metoprolol Tartrate 25 Mg Tablet) 25 mg PO BID [facility]; Protocol Last Admin: 02/22/24 07:31 Dose: 25 mg Documented By: BEATRICE Ondansetron HCl (Ondansetron Hcl 4 Mg/2 Ml Vial) 4 mg IVPUSH Q6H PRN PRN Reason: Nausea and Vomiting Last Admin: 02/20/24 09:54 Dose: 4 mg Documented By: ZONIA Oxycodone HCl (Oxycodone Hcl Immed Release 5 Mg Tablet) 5 mg PO Q6H PRN PRN Reason: Pain, Moderate(Pain Scale 4-6) Last Admin: 02/22/24 07:31 Dose: 5 mg Documented By: BEATRICE Sodium Chloride (0.9 % Sodium Chloride Flush 3 Ml [facility]ringe) [facility] Last Admin: 02/22/24 07:37 Dose: 3 ml Documented By: BEATRICE Labs 02/22/24 06:36 02/22/24 06:36 Labs: Laboratory Results - last 24 hr 02/22/24 06:36 MCV 92.0 MCH 32.6 MCHC 35.4 RDW 14.3 Plt Count 225 MPV 9.8 Absolute Nucleated RBC 0.000 Nucleated RBC % (auto) 0.0 Anion Gap 12 Estim Creat Clear Calc 109.0 Estimated GFR > 60 Fasting Glucose 109 H Calcium 9.1 Magnesium 1.9 Total Bilirubin 1.5 H Direct Bilirubin 0.7 H AST 28 ALT 63 H Alkaline Phosphatase 126 H Total Protein 6.4 L Albumin 3.2 L Procedures Date of Service Date of Service: 02/23/24 Progress Note: A&P Assessment and plan (1) Biliary acute pancreatitis: Status: Acute Assessment and Plan: May have been passing sludge or retained small stones in the CBD LFTs now almost normal No fever Abdomen soft and benign Still has some periodic epigastric pain with oral intake Proton pump inhibitor Ambulate Follow LFTs Time Spent With Patient Time: Total time managing care of this patient today ____ minutes. Quality Stroke Does the patient have a stroke diagnosis?: No VTE Prior VTE?: No VTE Risk Level:: Medical - moderate - high VTE Device Contraindication: N/A - Device Ordered VTE Drug Contraindication: N/A - Med Ordered
[2024-02-22] MEDS: Enoxaparin Sodium 40 MG/0.4 ML SYRINGE SUBCUT (09:05)
[2024-02-22] MEDS: cefTRIAXone sodium 2 GM in 0.9 % Sodium Chloride 50 ML IV (09:05)
--- NOTE | 2024-02-22 10:18 | HO.PM.IMPN ---
Subjective Subjective Date of Service: 02/22/24 Interval History: still with epigastric pain, fever overnight Physical Exam Vital Signs: Vital Signs: Last Vital Signs Temp 97.6 F 02/22/24 07:20 Pulse 99 02/22/24 07:20 Resp 18 02/22/24 07:20 BP 158/87 H 02/22/24 07:20 Pulse Ox 94 02/22/24 07:20 O2 Del Method Room Air 02/22/24 07:20 O2 Flow Rate 2 02/22/24 03:59 BMI result Body Mass Index 29.5 Const: General: no acute distress Resp: Effort & Inspection: normal respiratory effort Cardio: Rhythm: regular rhythm GI: Palpation (GI): Soft to palpation, not firm, nontender and no guarding Objective Data Active Medications Acetaminophen (Acetaminophen 325 Mg Tablet) 650 mg PO Q6H PRN PRN Reason: Fever >100.4 and pain Last Admin: 02/21/24 22:12 Dose: 650 mg Documented By: SIRI Amlodipine Besylate (Amlodipine Besylate 5 Mg Tablet) 5 mg PO BEDTIME [facility]; Protocol Last Admin: 02/21/24 20:24 Dose: 5 mg Documented By: SIRI Calcium Carbonate (Calcium Carbonate 750 Mg Tab.Chew) 750 mg PO Q6H PRN PRN Reason: Heartburn Last Admin: 02/20/24 23:02 Dose: 750 mg Documented By: ZONIA Enoxaparin Sodium (Enoxaparin Sodium 40 Mg/0.4 Ml Syringe) 40 mg SUBCUT Q24H [facility] Last Admin: 02/22/24 09:05 Dose: 40 mg Documented By: BEATRICE Hydromorphone HCl (Hydromorphone Hcl 0.5 Mg/0.5 Ml Syringe) 0.5 mg IVPUSH Q3H PRN; Protocol PRN Reason: Pain, Severe (Pain Scale 7-10) Last Admin: 02/22/24 07:31 Dose: 0.5 mg Documented By: BEATRICE Ceftriaxone Sodium 2 gm/ (Sodium Chloride) 50 mls @ 100 mls/hr IV Q24H [facility] Last Infusion: 02/22/24 09:47 Dose: Infused Documented By: BEATRICE Lidocaine (Lidocaine 4 % Patch Adh..Patch) 1 patch TRANSDERMA DAILY [facility]; Protocol Last Admin: 02/22/24 01:01 Dose: 1 patch Documented By: WILFRED Losartan Potassium (Losartan Potassium 50 Mg Tablet) 100 mg PO BEDTIME [facility]; Protocol Last Admin: 02/21/24 20:24 Dose: 100 mg Documented By: SIRI Metoprolol Tartrate (Metoprolol Tartrate 25 Mg Tablet) 25 mg PO BID [facility]; Protocol Last Admin: 02/22/24 07:31 Dose: 25 mg Documented By: BEATRICE Ondansetron HCl (Ondansetron Hcl 4 Mg/2 Ml Vial) 4 mg IVPUSH Q6H PRN PRN Reason: Nausea and Vomiting Last Admin: 02/20/24 09:54 Dose: 4 mg Documented By: GISEL-RIVGARFIELD Oxycodone HCl (Oxycodone Hcl Immed Release 5 Mg Tablet) 5 mg PO Q4H PRN PRN Reason: Pain, Moderate(Pain Scale 4-6) Sodium Chloride (0.9 % Sodium Chloride Flush 3 Ml Syringe) 3 ml IVFLUSH QSHIFT [facility] Last Admin: 02/22/24 07:37 Dose: 3 ml Documented By: BEATRICE Labs 02/22/24 06:36 02/22/24 06:36 Labs: Laboratory Results - last 24 hr 02/22/24 06:36 MCV 92.0 MCH 32.6 MCHC 35.4 RDW 14.3 Plt Count 225 MPV 9.8 Absolute Nucleated RBC 0.000 Nucleated RBC % (auto) 0.0 Anion Gap 12 Estim Creat Clear Calc 109.0 Estimated GFR > 60 Fasting Glucose 109 H Calcium 9.1 Magnesium 1.9 Total Bilirubin 1.5 H Direct Bilirubin 0.7 H AST 28 ALT 63 H Alkaline Phosphatase 126 H Total Protein 6.4 L Albumin 3.2 L Assessment and Plan (1) Acute pancreatitis: Status: Acute (2) Abnormal LFTs: Status: Acute (3) Bacteremia due to Klebsiella pneumoniae: Status: Acute Plan 73 yo M with a PMH of CAD, HTN, GERD, gall stones s/p cholecystectomy complicated by liver hematoma, 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 due to gallstone pancreatitis, Acute biliary pancreatitis/cholangitis/obstructive jaundice complicated by klebsiella bacteremia MRCP shows tiny filling defects in the distal CBD questionable for small stones/sludge. Mild interstitial pancreatitis noted. 1.3cm lesion R lobe liver, seen on prior imaging studies Suspect passed sludge/stone, no need for ercp at this point, patient already s/p cholecystectomy continue IV ceftriaxone, follow up repeat culture bili trending down, jaundice resolved full liquid diet will add omeprazole acute Hypoxic respiratory failure now on room air HTN resume metoprolol, losartan, and amlodipine History PE/DVT s/p IVF filter -- not on OAC (had liver hematoma) Full Code DVT pptx, lovenox reason for continued hospitalization: not tolerating po, fever Quality Stroke Does the patient have a stroke diagnosis?: No VTE Prior VTE?: No VTE Risk Level:: Medical - moderate - high VTE Device Contraindication: N/A - Device Ordered VTE Drug Contraindication: N/A - Med Ordered
[2024-02-22 11:20] VITALS: BP 153/78; PULSE 92; RESP 18; TEMP 37; O2SAT 94
[2024-02-22] MEDS: polyethylene glycoL 3350 17 GM POWD.PACK PO (11:41)
[2024-02-22] MEDS: Calcium Carbonate 750 MG TAB.CHEW PO (11:41)
[2024-02-22] MEDS: Omeprazole 40 MG CAPSULE.DR PO ×2 (11:41→17:03)
--- NOTE | 2024-02-22 14:39 | MHC.CM.PN ---
EMR reviewed and per MD rounds, pt is not medically cleared for D/C due to management of epigastric pain with pt unable to tolerate PO.
[2024-02-22] MEDS: Acetaminophen 325 MG TABLET 650 MG PO (15:36)
[2024-02-22 15:46] VITALS: BP 157/75; PULSE 98; RESP 18; TEMP 36.9; O2SAT 94
--- NOTE | 2024-02-22 16:19 | PC.NURSE ---
Patient continues to complain of pain in back occasionally in abdomen. Pain meds adjusted by Dr Dumont medicated with prn oxycodone every 4 hours with effect. OOB with assist and walker to ambulate on unit. Ok for to help patient ambulate in room per Dr Dumont, aware of safety risks. Croft catheter dc this afternoon for voiding trial. OOB to chair during shift. Diet changed to regular.
[2024-02-22 19:04] VITALS: BP 134/73; PULSE 98; RESP 20; TEMP 36.9; O2SAT 95
[2024-02-22] MEDS: amLODIPine Besylate 5 MG TABLET PO (19:54)
[2024-02-22] MEDS: Losartan Potassium 50 MG TABLET 100 MG PO (19:55)
--- NOTE | 2024-02-22 22:56 | MHC.PIE ---
p; pt c/o constipation i; dr meraz notified. new order mom e; will cont to monitor
[2024-02-22] MEDS: Milk of Magnesia 30 ML ORAL.SUSP PO (22:58)
[2024-02-22 23:34] VITALS: BP 160/77; PULSE 88; RESP 20; TEMP 37.7; O2SAT 95
[2024-02-23] VITALS (8 sets, daily range): BP systolic 125–164; BP diastolic 61–81; PULSE 72–102; RESP 17–20; TEMP 36.1–36.9; O2SAT 93–97
--- NOTE | 2024-02-23 00:24 | W.PM.IDCN ---
History of Present Illness Data of Consult Service Date: 02/22/24 Requesting physician: Eduardo Dumont Primary Care Provider: Agustin Mullen MD HPI Reason for consult: abdominal pain,Klebsiella bacteremia He presents with abdominal discomfort and urinary retention. He has epigastric pain ,7/10. He has gallstone pancreatitis. He had cholecystectomy 3 months ago. Review of Systems Review of Systems: Yes all other systems are reviewed and are negative [facility] Past Medical History Medical History Pulmonary embolism Postoperative anemia due to acute blood loss [place] disease Hematoma GERD (gastroesophageal reflux disease) Elevated cholesterol Low back pain Depression CAD (coronary artery disease) Stable angina Gallstones Scoliosis Carpal tunnel syndrome C2 cervical fracture Arthritis Hypertension Family History Family History Father HTN (hypertension) Cardiac arrest Mother HTN (hypertension) Stroke Sister HTN (hypertension) Cancer Family history: reviewed and not pertinent Surgical History Surgical History S/P laparoscopic cholecystectomy Hx of carpal tunnel repair History of esophagogastroduodenoscopy (EGD) H/O colonoscopy History of cardiac cath Social History Social History Household Members: Spouse Household Members Other:: tereza Housing: House Are you a primary care management assistant to a significant other at home: No Do you presently have visiting nurse or other home services: No Unable to assess alcohol history related to: Unable to respond Alcohol intake: never Patient Tobacco Use Status: Former Tobacco user Quit Date: 1970 Tobacco use type: Cigarette Years Smoked: 3 +/- Smoked in Last 30 Days: No Use of substances other than those prescribed or required for medical reasons: No Currently Displaying Signs/Symptoms of Drug Intoxication Withdrawal: No Have you been hit, kicked, punched, or otherwise hurt by someone within the past year? If so, by whom?: No Do you feel safe in your current relationship?: Yes Is there a partner from a previous relationship who is making you feel unsafe now?: No Are you made to feel afraid or neglected: No Advance Directives: No Advance Directives Information Provided: No Do you have thoughts of harming others: None Do you have a plan to hurt others: No Plan Recently lost weight without trying: Yes How much weight loss: 14-23 pounds Eating poorly because of decreased appetite: No Nutrition screen score: 4 Nutrition Risks: No Nutritional Risk Poor oral hygiene: No service: No Meds Allergies Allergy/AdvReac Type Severity Reaction Status Date / Time No Known Allergies Allergy Verified 02/18/24 04:17 Active Medications: Current Medications Acetaminophen (Acetaminophen 325 Mg Tablet) 650 mg PO Q6H PRN PRN Reason: Fever >100.4 and pain Last Admin: 02/22/24 15:36 Dose: 650 mg Amlodipine Besylate (Amlodipine Besylate 5 Mg Tablet) 5 mg PO BEDTIME [facility]; Protocol Last Admin: 02/22/24 19:54 Dose: 5 mg Calcium Carbonate (Calcium Carbonate 750 Mg Tab.Chew) 750 mg PO Q6H PRN PRN Reason: Heartburn Last Admin: 02/22/24 11:41 Dose: 750 mg Enoxaparin Sodium (Enoxaparin Sodium 40 Mg/0.4 Ml Syringe) 40 mg SUBCUT Q24H [facility] Last Admin: 02/22/24 09:05 Dose: 40 mg Hydromorphone HCl (Hydromorphone Hcl 0.5 Mg/0.5 Ml Syringe) 0.25 mg IVPUSH Q3H PRN; Protocol PRN Reason: Pain, Severe (Pain Scale 7-10) Ceftriaxone Sodium 2 gm/ (Sodium Chloride) 50 mls @ 100 mls/hr IV Q24H [facility] Last Infusion: 02/22/24 09:47 Dose: Infused Lidocaine (Lidocaine 4 % Patch Adh..Patch) 1 patch TRANSDERMA DAILY [facility]; Protocol Last Admin: 02/22/24 01:01 Dose: 1 patch Losartan Potassium (Losartan Potassium 50 Mg Tablet) 100 mg PO BEDTIME [facility]; Protocol Last Admin: 02/22/24 19:55 Dose: 100 mg Magnesium Hydroxide (Milk Of Magnesia 30 Ml Oral.Susp) 30 ml PO TID PRN PRN Reason: anxiety/restlessness Last Admin: 02/22/24 22:58 Dose: 30 ml Metoprolol Tartrate (Metoprolol Tartrate 25 Mg Tablet) 25 mg PO BID [facility]; Protocol Last Admin: 02/22/24 19:55 Dose: 25 mg Omeprazole (Omeprazole 40 Mg Capsule.Dr) 40 mg PO BID@0630,1630 [facility] Last Admin: 02/22/24 17:03 Dose: 40 mg Ondansetron HCl (Ondansetron Hcl 4 Mg/2 Ml Vial) 4 mg IVPUSH Q6H PRN PRN Reason: Nausea and Vomiting Last Admin: 02/20/24 09:54 Dose: 4 mg Oxycodone HCl (Oxycodone Hcl Immed Release 5 Mg Tablet) 5 mg PO Q4H PRN PRN Reason: Pain, Moderate(Pain Scale 4-6) Last Admin: 02/22/24 15:37 Dose: 5 mg Sodium Chloride (0.9 % Sodium Chloride Flush 3 Ml Syringe) 3 ml IVFLUSH QSHIFT [facility] Last Admin: 02/22/24 17:05 Dose: 3 ml Home Medications ?Medication ?Instructions ?Recorded ?Confirmed ?Last Taken ?Type aspirin 81 mg tablet,delayed 81 mg PO DAILY 01/13/21 02/18/24 11/09/23 History release (Adult Low Dose Aspirin) atorvastatin 20 mg tablet 20 mg PO Q OTHER DAY 01/13/21 02/18/24 02/17/24 History losartan 100 mg tablet 100 mg PO BEDTIME 01/13/21 02/18/24 11/09/23 History omeprazole 40 mg capsule,delayed 40 mg PO BEDTIME 01/13/21 02/18/24 11/09/23 History release tramadol 50 mg tablet 50 mg PO BID PRN Pain 01/13/21 02/18/24 Unknown History acetaminophen 500 mg tablet 500 mg PO Q6H PRN Pain 11/03/23 02/18/24 Unknown History cholecalciferol (vitamin D3) 25 25 mcg PO DAILY 11/03/23 02/18/24 11/09/23 History mcg (1,000 unit) capsule glucosamine-chondroitin 500 mg-400 1 cap PO DAILY 11/03/23 02/18/24 11/09/23 History mg capsule magnesium oxide 500 mg PO DAILY 11/03/23 02/18/24 11/09/23 History mecobalamin (vitamin B12) 2,500 3,000 mcg PO DAILY 11/03/23 02/18/24 11/09/23 History mcg chewable tablet amlodipine 5 mg tablet 5 mg PO BEDTIME 11/05/23 02/18/24 11/09/23 History Physical Exam Vital Signs: Vital Signs: Last Vital Signs Temp 99.8 F 02/22/24 23:34 Pulse 88 02/22/24 23:34 Resp 20 02/22/24 23:34 BP 160/77 H 02/22/24 23:34 Pulse Ox 95 02/22/24 23:34 O2 Del Method Room Air 02/22/24 23:34 O2 Flow Rate 2 02/22/24 03:59 BMI result Body Mass Index 29.5 GI: Other: mild abdominal discomfort epigastic Results Labs 02/22/24 06:36 02/22/24 06:36 Labs: Short CBC 02/22/24 Range/Units 06:36 WBC 13.2 H (4.8-10.8) X10*3/uL Hgb 11.8 L (14.0-18.0) g/dl Hct 33.3 L (42.0-52.0) % Plt Count 225 (160-400) X10*3/uL BMP 02/22/24 06:36 Sodium 136 Potassium 3.0 L Chloride 102 Carbon Dioxide 25 BUN 13 Creatinine 0.61 Calcium 9.1 Liver Function 02/22/24 Range/Units 06:36 Total Bilirubin 1.5 H (0.0-1.0) mg/dL Direct Bilirubin 0.7 H (0.0-0.5) mg/dL AST 28 (5-37) U/L ALT 63 H (0-40) U/L Alkaline Phosphatase 126 H (39-117) U/L Albumin 3.2 L (3.5-5.0) g/dL Microbiology Microbiology Results: Microbiology 02/18/24 09:00 Blood - Venous Blood Culture - Final Klebsiella pneumoniae 02/18/24 09:00 Blood - Venous Blood Culture - Final Klebsiella pneumoniae Assessment and Plan (1) Bacteremia due to Klebsiella pneumoniae: Status: Acute (2) Biliary acute pancreatitis: Status: Acute Plan He has Klebsiella bacteremia likely due to gallstone pancreatitis/biliary obstruction. I dont think pancreas is necrotic at this time Would give IV Ceftriaxone probably 10-14 days. Repeat blood culture x 2. Follow GI
[2024-02-23] MEDS: Omeprazole 40 MG CAPSULE.DR PO ×2 (05:52→16:15)
[2024-02-23] MEDS: Metoprolol Tartrate 25 MG TABLET PO ×2 (09:13→20:58)
[2024-02-23] MEDS: Lidocaine 4 % Patch ADH..PATCH 1 PATCH TRANSDERMA (09:14)
[2024-02-23] MEDS: cefTRIAXone sodium 2 GM in 0.9 % Sodium Chloride 50 ML IV (09:15)
[2024-02-23] MEDS: 0.9 % Sodium Chloride Flush 3 ML SYRINGE IVFLUSH ×3 (09:19→23:21)
[2024-02-23] MEDS: Enoxaparin Sodium 40 MG/0.4 ML SYRINGE SUBCUT (09:19)
[2024-02-23] MEDS: Calcium Carbonate 750 MG TAB.CHEW PO ×2 (09:30→16:15)
--- NOTE | 2024-02-23 09:40 | PM.PNGS ---
Subjective Subjective Date of Service: 02/24/24 Interval history: Says he has burning epigastric pain with full Just staying on liquids for now No nausea or vomiting Has flatus and BMs Was ambulating yesterday morning Physical Exam Vital Signs: Vital Signs: Last Vital Signs Temp 97.6 F 02/23/24 07:22 Pulse 100 02/23/24 09:13 Resp 18 02/23/24 07:22 BP 140/76 H 02/23/24 07:22 Pulse Ox 95 02/23/24 07:22 O2 Del Method Room Air 02/23/24 07:22 O2 Flow Rate 2 02/22/24 03:59 BMI result Body Mass Index 29.5 Const: Other: Sitting on recliner General: no acute distress Resp: Other: Occasionally gets mildly short of breath Effort & Inspection: normal respiratory effort Cardio: Rate: regular rate GI: Palpation (GI): Soft to palpation, not firm and nontender Objective Data Active Medications Acetaminophen (Acetaminophen 325 Mg Tablet) 650 mg PO Q6H PRN PRN Reason: Fever >100.4 and pain Last Admin: 02/22/24 15:36 Dose: 650 mg Documented By: BEATRICE Amlodipine Besylate (Amlodipine Besylate 5 Mg Tablet) 5 mg PO BEDTIME [facility]; Protocol Last Admin: 02/22/24 19:54 Dose: 5 mg Documented By: ERMA Calcium Carbonate (Calcium Carbonate 750 Mg Tab.Chew) 750 mg PO Q6H PRN PRN Reason: Heartburn Last Admin: 02/23/24 09:30 Dose: 750 mg Documented By: CARTER Enoxaparin Sodium (Enoxaparin Sodium 40 Mg/0.4 Ml Syringe) 40 mg SUBCUT Q24H [facility] Last Admin: 02/23/24 09:19 Dose: 40 mg Documented By: CARTER Hydromorphone HCl (Hydromorphone Hcl 0.5 Mg/0.5 Ml Syringe) 0.25 mg IVPUSH Q3H PRN; Protocol PRN Reason: Pain, Severe (Pain Scale 7-10) Ceftriaxone Sodium 2 gm/ (Sodium Chloride) 50 mls @ 100 mls/hr IV Q24H [facility] Last Admin: 02/23/24 09:15 Dose: 100 mls/hr Documented By: CARTER Lidocaine (Lidocaine 4 % Patch Adh..Patch) 1 patch TRANSDERMA DAILY [facility]; Protocol Last Admin: 02/23/24 09:14 Dose: 1 patch Documented By: CARTER Losartan Potassium (Losartan Potassium 50 Mg Tablet) 100 mg PO BEDTIME [facility]; Protocol Last Admin: 02/22/24 19:55 Dose: 100 mg Documented By: ERMA Magnesium Hydroxide (Milk Of Magnesia 30 Ml Oral.Susp) 30 ml PO TID PRN PRN Reason: anxiety/restlessness Last Admin: 02/22/24 22:58 Dose: 30 ml Documented By: LORELEI Metoprolol Tartrate (Metoprolol Tartrate 25 Mg Tablet) 25 mg PO BID [facility]; Protocol Last Admin: 02/23/24 09:13 Dose: 25 mg Documented By: CARTER Omeprazole (Omeprazole 40 Mg Capsule.Dr) 40 mg PO BID@0630,1630 [facility] Last Admin: 02/23/24 05:52 Dose: 40 mg Documented By: LORELEI Ondansetron HCl (Ondansetron Hcl 4 Mg/2 Ml Vial) 4 mg IVPUSH Q6H PRN PRN Reason: Nausea and Vomiting Last Admin: 02/20/24 09:54 Dose: 4 mg Documented By: GISEL-RIVGARFIELD Oxycodone HCl (Oxycodone Hcl Immed Release 5 Mg Tablet) 5 mg PO Q4H PRN PRN Reason: Pain, Moderate(Pain Scale 4-6) Last Admin: 02/22/24 15:37 Dose: 5 mg Documented By: BEATRICE Sodium Chloride (0.9 % Sodium Chloride Flush 3 Ml Syringe) 3 ml IVFLUSH QSHIFT [facility] Last Admin: 02/23/24 09:19 Dose: 3 ml Documented By: CARTER Labs 02/24/24 06:53 02/24/24 06:53 Microbiology Microbiology Results: Microbiology 02/22/24 06:36 Blood Culture - Preliminary Blood - Venous No growth after 24 hours. 02/22/24 06:36 Blood Culture - Preliminary Blood - Venous No growth after 24 hours. Procedures Date of Service Date of Service: 02/24/24 Progress Note: A&P Assessment and plan (1) Biliary acute pancreatitis: Status: Acute Assessment and Plan: LFTs has improved significantly Patient describes burning pain in the epigastric area with food Continue PPI Likely to have peptic ulcer disease Encouraged to take Tums or magnesium oxide Exam otherwise benign Should be on some IV fluids as oral intake may be marginal Encourage ambulation Time Spent With Patient Time: Total time managing care of this patient today ____ minutes. Quality Stroke Does the patient have a stroke diagnosis?: No VTE Prior VTE?: No VTE Risk Level:: Medical - moderate - high VTE Device Contraindication: N/A - Device Ordered VTE Drug Contraindication: N/A - Med Ordered
--- NOTE | 2024-02-23 10:07 | HO.PM.IMPN ---
Subjective Subjective Date of Service: 02/23/24 Interval History: tolerating small amounts of solids Physical Exam Vital Signs: Vital Signs: Last Vital Signs Temp 97.6 F 02/23/24 07:22 Pulse 100 02/23/24 09:13 Resp 18 02/23/24 07:22 BP 140/76 H 02/23/24 07:22 Pulse Ox 95 02/23/24 07:22 O2 Del Method Room Air 02/23/24 07:22 O2 Flow Rate 2 02/22/24 03:59 BMI result Body Mass Index 29.5 Const: Other: Sitting on recliner General: no acute distress Resp: Other: Occasionally gets mildly short of breath Effort & Inspection: normal respiratory effort Cardio: Rate: regular rate GI: Palpation (GI): Soft to palpation, not firm and nontender Objective Data Active Medications Acetaminophen (Acetaminophen 325 Mg Tablet) 650 mg PO Q6H PRN PRN Reason: Fever >100.4 and pain Last Admin: 02/22/24 15:36 Dose: 650 mg Documented By: BEATRICE Amlodipine Besylate (Amlodipine Besylate 5 Mg Tablet) 5 mg PO BEDTIME [facility]; Protocol Last Admin: 02/22/24 19:54 Dose: 5 mg Documented By: ERMA Calcium Carbonate (Calcium Carbonate 750 Mg Tab.Chew) 750 mg PO Q6H PRN PRN Reason: Heartburn Last Admin: 02/23/24 09:30 Dose: 750 mg Documented By: CARTER Enoxaparin Sodium (Enoxaparin Sodium 40 Mg/0.4 Ml Syringe) 40 mg SUBCUT Q24H [facility] Last Admin: 02/23/24 09:19 Dose: 40 mg Documented By: CARTER Hydromorphone HCl (Hydromorphone Hcl 0.5 Mg/0.5 Ml Syringe) 0.25 mg IVPUSH Q3H PRN; Protocol PRN Reason: Pain, Severe (Pain Scale 7-10) Ceftriaxone Sodium 2 gm/ (Sodium Chloride) 50 mls @ 100 mls/hr IV Q24H [facility] Last Infusion: 02/23/24 09:50 Dose: Infused Documented By: CARTER Dextrose/Sodium Chloride (D5ns) 1,000 mls @ 80 mls/hr IVCONT .[id number] [facility] Lidocaine (Lidocaine 4 % Patch Adh..Patch) 1 patch TRANSDERMA DAILY [facility]; Protocol Last Admin: 02/23/24 09:14 Dose: 1 patch Documented By: CARTER Losartan Potassium (Losartan Potassium 50 Mg Tablet) 100 mg PO BEDTIME [facility]; Protocol Last Admin: 02/22/24 19:55 Dose: 100 mg Documented By: ERMA Magnesium Hydroxide (Milk Of Magnesia 30 Ml Oral.Susp) 30 ml PO TID PRN PRN Reason: anxiety/restlessness Last Admin: 02/22/24 22:58 Dose: 30 ml Documented By: LORELEI Metoprolol Tartrate (Metoprolol Tartrate 25 Mg Tablet) 25 mg PO BID [facility]; Protocol Last Admin: 02/23/24 09:13 Dose: 25 mg Documented By: CARTER Omeprazole (Omeprazole 40 Mg Capsule.Dr) 40 mg PO BID@0630,1630 [facility] Last Admin: 02/23/24 05:52 Dose: 40 mg Documented By: LORELEI Ondansetron HCl (Ondansetron Hcl 4 Mg/2 Ml Vial) 4 mg IVPUSH Q6H PRN PRN Reason: Nausea and Vomiting Last Admin: 02/20/24 09:54 Dose: 4 mg Documented By: GISEL-RIVGARFIELD Oxycodone HCl (Oxycodone Hcl Immed Release 5 Mg Tablet) 5 mg PO Q4H PRN PRN Reason: Pain, Moderate(Pain Scale 4-6) Last Admin: 02/22/24 15:37 Dose: 5 mg Documented By: BEATRICE Sodium Chloride (0.9 % Sodium Chloride Flush 3 Ml Syringe) 3 ml IVFLUSH QSHIFT [facility] Last Admin: 02/23/24 09:19 Dose: 3 ml Documented By: CARTER Labs 02/22/24 06:36 02/22/24 06:36 Microbiology Microbiology Results: Microbiology 02/22/24 06:36 Blood Culture - Preliminary Blood - Venous No growth after 24 hours. 02/22/24 06:36 Blood Culture - Preliminary Blood - Venous No growth after 24 hours. 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 due to gallstone pancreatitis, Acute biliary pancreatitis/cholangitis/obstructive jaundice complicated by klebsiella bacteremia MRCP shows tiny filling defects in the distal CBD questionable for small stones/sludge. Mild interstitial pancreatitis noted. 1.3cm lesion R lobe liver, seen on prior imaging studies Suspect passed sludge/stone, no need for ercp at this point, patient already s/p cholecystectomy continue IV ceftriaxone, follow up repeat culture from 02/22/24, ID appreciated, plan for 10-14 days iv ceftriaxone, if cultures stay negative will need midline/picc, plan to do abx at home bili trending down, jaundice resolved, monitor advanced to solids suspected PUD omeprazole increased to 40mg bid acute Hypoxic respiratory failure resolved now on room air HTN metoprolol, losartan, and amlodipine History PE/DVT s/p IVF filter -- not on OAC (had liver hematoma) Full Code DVT pptx, lovenox reason for continued hospitalization: awaiting cultures to place picc/midline, better tolerance of solids Quality Stroke Does the patient have a stroke diagnosis?: No VTE Prior VTE?: No VTE Risk Level:: Medical - moderate - high VTE Device Contraindication: N/A - Device Ordered VTE Drug Contraindication: N/A - Med Ordered
[2024-02-23] MEDS: Dextrose 5 % and 0.9 % NaCl 1,000 ML 80 ML IVCONT ×2 (10:29→20:59)
[2024-02-23] MEDS: Acetaminophen 325 MG TABLET 650 MG PO ×2 (10:39→18:28)
--- NOTE | 2024-02-23 11:40 | MHC.CM.PN ---
EMR reviewed and per MD rounds, pt is not medically cleared for D/C due to awaiting cultures, and pending PICC line placement tomorrow, pt will likely need 10 days IV abx. This CM met with pt and his to discuss D/C plan, and they are in agreement with going home with new VNA and home infusion. Per pts , they do not want overlook VNA, but would be agreeable to [facility]. Pt and agreeable to option longterm infusion as well. Referrals placed in [facility] accordingly.
[2024-02-23] MEDS: Milk of Magnesia 30 ML ORAL.SUSP PO (12:36)
[2024-02-23] MEDS: oxyCODONE HCl Immed Release 5 MG TABLET PO (18:28)
[2024-02-23] MEDS: amLODIPine Besylate 5 MG TABLET PO (20:58)
[2024-02-23] MEDS: Losartan Potassium 50 MG TABLET 100 MG PO (20:58)
[2024-02-24] MEDS: oxyCODONE HCl Immed Release 5 MG TABLET PO ×3 (02:35→15:24)
[2024-02-24 03:12] VITALS: BP 164/78; PULSE 80; RESP 20; TEMP 36.7; O2SAT 94
[2024-02-24] MEDS: Calcium Carbonate 750 MG TAB.CHEW PO ×2 (05:00→12:58)
[2024-02-24] MEDS: Omeprazole 40 MG CAPSULE.DR PO ×2 (06:00→16:41)
[2024-02-24 07:01] LABS: Hematocrit 31.2 % (42.0-52.0); Hemoglobin 10.9 g/dl (14.0-18.0); Mean Corpuscular HGB Conc 34.9 g/dl (31.0-36.0); Mean Corpuscular Hemoglobin 32.2 pg (27.0-33.0); Mean Platelet Volume 9.3 fL (9.4-12.4); Platelet Count 275 X10*3/uL (160-400); Red Blood Count 3.39 X10*6/uL (4.60-5.80); Red Cell Distribution Width 13.8 % (11.0-16.0)
[2024-02-24 07:24] LABS: Alanine Aminotransferase 42 U/L (0-40); Albumin Level 2.9 g/dL (3.5-5.0); Alkaline Phosphatase 114 U/L (39-117); Anion Gap 10 (12-20); Aspartate Amino Transferase 28 U/L (5-37); Bilirubin Direct 0.5 mg/dL (0.0-0.5); Bilirubin Total 0.9 mg/dL (0.0-1.0); Blood Urea Nitrogen 12 mg/dL (9-16); Calcium 8.4 mg/dL (8.4-10.2); Carbon Dioxide 26 mmol/L (22-29); Chloride 106 mmol/L (96-108); Creatinine Clr Calc Pharmacy 100.7; Estimated Glomerular Filt Rate > 60; Glucose Fasting 129 mg/dL (60-99); Magnesium 2.1 mg/dL (1.6-2.6); Sodium 139 mmol/L (135-145); Total Protein 5.9 g/dL (6.5-8.0)
[2024-02-24 07:33] LABS: Potassium 2.8 mmol/L (3.3-5.1)
[2024-02-24 07:39] VITALS: BP 151/78; PULSE 84; RESP 19; TEMP 38.1; O2SAT 95
--- NOTE | 2024-02-24 08:20 | PM.PNGS ---
Subjective Subjective Date of Service: 02/24/24 Interval history: feels ok has complaints of epig pain with meals low grade temp overnight says he had ambulated well yesterday Physical Exam Vital Signs: Vital Signs: Last Vital Signs Temp 100.5 F H 02/24/24 07:39 Pulse 84 02/24/24 07:39 Resp 19 02/24/24 07:39 BP 151/78 H 02/24/24 07:39 Pulse Ox 95 02/24/24 07:39 O2 Del Method Room Air 02/24/24 07:39 O2 Flow Rate 2 02/22/24 03:59 BMI result Body Mass Index 29.5 Const: General: no acute distress Limitations: No altered mental status Resp: Effort & Inspection: normal respiratory effort and no tracheal deviation Cardio: Rate: regular rate GI: Palpation (GI): Soft to palpation, not firm, nontender and no guarding Objective Data Active Medications Acetaminophen (Acetaminophen 325 Mg Tablet) 650 mg PO Q6H PRN PRN Reason: Fever >100.4 and pain Last Admin: 02/23/24 18:28 Dose: 650 mg Documented By: JANET Amlodipine Besylate (Amlodipine Besylate 5 Mg Tablet) 5 mg PO BEDTIME [facility]; Protocol Last Admin: 02/23/24 20:58 Dose: 5 mg Documented By: LORELEI Calcium Carbonate (Calcium Carbonate 750 Mg Tab.Chew) 750 mg PO Q6H PRN PRN Reason: Heartburn Last Admin: 02/24/24 05:00 Dose: 750 mg Documented By: LORELEI Enoxaparin Sodium (Enoxaparin Sodium 40 Mg/0.4 Ml Syringe) 40 mg SUBCUT Q24H [facility] Last Admin: 02/23/24 09:19 Dose: 40 mg Documented By: CARTER Hydromorphone HCl (Hydromorphone Hcl 0.5 Mg/0.5 Ml Syringe) 0.25 mg IVPUSH Q3H PRN; Protocol PRN Reason: Pain, Severe (Pain Scale 7-10) Ceftriaxone Sodium 2 gm/ (Sodium Chloride) 50 mls @ 100 mls/hr IV Q24H [facility] Last Infusion: 02/23/24 09:50 Dose: Infused Documented By: CARTER Dextrose/Sodium Chloride (D5ns) 1,000 mls @ 80 mls/hr IVCONT .[id number] [facility] Last Admin: 02/23/24 20:59 Dose: 80 mls/hr Documented By: LORELEI Potassium Chloride (Potassium Chloride/H20) 10 meq in 100 mls @ 100 mls/hr IV Q1H [facility] Stop: 02/24/24 10:14 Lidocaine (Lidocaine 4 % Patch Adh..Patch) 1 patch TRANSDERMA DAILY [facility]; Protocol Last Admin: 02/23/24 09:14 Dose: 1 patch Documented By: CARTER Losartan Potassium (Losartan Potassium 50 Mg Tablet) 100 mg PO BEDTIME [facility]; Protocol Last Admin: 02/23/24 20:58 Dose: 100 mg Documented By: LORELEI Magnesium Hydroxide (Milk Of Magnesia 30 Ml Oral.Susp) 30 ml PO TID PRN PRN Reason: anxiety/restlessness Last Admin: 02/23/24 12:36 Dose: 30 ml Documented By: CARTER Metoprolol Tartrate (Metoprolol Tartrate 25 Mg Tablet) 25 mg PO BID [facility]; Protocol Last Admin: 02/23/24 20:58 Dose: 25 mg Documented By: LORELEI Omeprazole (Omeprazole 40 Mg Capsule.Dr) 40 mg PO BID@0630,1630 [facility] Last Admin: 02/24/24 06:00 Dose: 40 mg Documented By: LORELEI Ondansetron HCl (Ondansetron Hcl 4 Mg/2 Ml Vial) 4 mg IVPUSH Q6H PRN PRN Reason: Nausea and Vomiting Last Admin: 02/20/24 09:54 Dose: 4 mg Documented By: ZONIA Oxycodone HCl (Oxycodone Hcl Immed Release 5 Mg Tablet) 5 mg PO Q4H PRN PRN Reason: Pain, Moderate(Pain Scale 4-6) Last Admin: 02/24/24 02:35 Dose: 5 mg Documented By: LORELEI Sodium Chloride (0.9 % Sodium Chloride Flush 3 Ml Syringe) 3 ml IVFLUSH QSHIFT [facility] Last Admin: 02/23/24 23:21 Dose: 3 ml Documented By: LORELEI Labs 02/24/24 06:53 02/24/24 06:53 Labs: Laboratory Results - last 24 hr 02/24/24 06:53 MCV 92.0 MCH 32.2 MCHC 34.9 RDW 13.8 Plt Count 275 MPV 9.3 L Absolute Nucleated RBC 0.000 Nucleated RBC % (auto) 0.0 Anion Gap 10 L Estim Creat Clear Calc 100.7 Estimated GFR > 60 Fasting Glucose 129 H Calcium 8.4 D Magnesium 2.1 Total Bilirubin 0.9 Direct Bilirubin 0.5 AST 28 ALT 42 H Alkaline Phosphatase 114 Total Protein 5.9 L Albumin 2.9 L Microbiology Microbiology Results: Microbiology 02/22/24 06:36 Blood Culture - Preliminary Blood - Venous No growth after 24 hours. 02/22/24 06:36 Blood Culture - Preliminary Blood - Venous No growth after 24 hours. Procedures Date of Service Date of Service: 02/24/24 Progress Note: A&P Assessment and plan (1) Bacteremia due to Klebsiella pneumoniae: Status: Acute Assessment and Plan: LFTs now normal WBC down had low grade temp - continue IV abx abd soft pt to take TUMs before meals continue PPI ambulate Charlene updated Time Spent With Patient Time: Total time managing care of this patient today ____ minutes. Quality Stroke Does the patient have a stroke diagnosis?: No VTE Prior VTE?: No VTE Risk Level:: Medical - moderate - high VTE Device Contraindication: N/A - Device Ordered VTE Drug Contraindication: N/A - Med Ordered
[2024-02-24] MEDS: cefTRIAXone sodium 2 GM in 0.9 % Sodium Chloride 50 ML IV (08:35)
[2024-02-24] MEDS: Metoprolol Tartrate 25 MG TABLET PO ×2 (08:36→20:26)
[2024-02-24] MEDS: Potassium Chloride ER 20 MEQ TAB.ER.PRT 40 MEQ PO (08:36)
[2024-02-24] MEDS: Lidocaine 4 % Patch ADH..PATCH 1 PATCH TRANSDERMA (08:38)
[2024-02-24] MEDS: 0.9 % Sodium Chloride Flush 3 ML SYRINGE IVFLUSH ×2 (08:38→15:24)
[2024-02-24] MEDS: Potassium Chloride/H20 10 MEQ/100 ML PIGGYBACK 100 MEQ IV ×2 (08:39→10:44)
[2024-02-24] MEDS: Dextrose 5 % and 0.9 % NaCl 1,000 ML 80 ML IVCONT (08:40)
[2024-02-24] MEDS: Enoxaparin Sodium 40 MG/0.4 ML SYRINGE SUBCUT (08:40)
[2024-02-24 11:45] VITALS: BP 131/61; PULSE 66; RESP 16; TEMP 36.4; O2SAT 96
[2024-02-24] MEDS: HYDROmorphone HCl 0.5 MG/0.5 ML SYRINGE 0.25 MG IVPUSH ×2 (13:03→16:47)
--- NOTE | 2024-02-24 14:21 | HO.PM.IMPN ---
Subjective Subjective Date of Service: 02/24/24 Interval History: seen and evaluated this morning reports feeling little better overall cultures negative still having pain on occasions Review of Systems Review of Systems: Yes all other systems are reviewed and are negative Physical Exam Vital Signs: Vital Signs: Last Vital Signs Temp 97.6 F 02/24/24 11:45 Pulse 66 02/24/24 11:45 Resp 16 02/24/24 11:45 BP 131/61 02/24/24 11:45 Pulse Ox 96 02/24/24 11:45 O2 Del Method Room Air 02/24/24 11:45 O2 Flow Rate 2 02/22/24 03:59 BMI result Body Mass Index 29.5 Const: Other: Constitutional : Awake, interactive, not in distress Neck : Normal inspection, Supple Cardiovascular : RRR, no JVP, no lower extremity edema Respiratory : good bilateral air entry, no crackles, wheezes or rhonchi Gastrointestinal: soft, lax, Normal bowel sounds, Non tender Skin : Warm, Dry Neurological : Alert & oriented x3, No focal deficit Objective Data Active Medications Acetaminophen (Acetaminophen 325 Mg Tablet) 650 mg PO Q6H PRN PRN Reason: Fever >100.4 and pain Last Admin: 02/23/24 18:28 Dose: 650 mg Documented By: JANET Amlodipine Besylate (Amlodipine Besylate 5 Mg Tablet) 5 mg PO BEDTIME [facility]S [facility]CLUDE 234 BEDS AT [facility]; Protocol Last Admin: 02/23/24 20:58 Dose: 5 mg Documented By: LORELEI Calcium Carbonate (Calcium Carbonate 750 Mg Tab.Chew) 750 mg PO Q6H PRN PRN Reason: Heartburn Last Admin: 02/24/24 12:58 Dose: 750 mg Documented By: MANDIE Enoxaparin Sodium (Enoxaparin Sodium 40 Mg/0.4 Ml Syringe) 40 mg SUBCUT Q24H [facility] Last Admin: 02/24/24 08:40 Dose: 40 mg Documented By: MANDIE Hydromorphone HCl (Hydromorphone Hcl 0.5 Mg/0.5 Ml Syringe) 0.25 mg IVPUSH Q3H PRN; Protocol PRN Reason: Pain, Severe (Pain Scale 7-10) Last Admin: 02/24/24 13:03 Dose: 0.25 mg Documented By: MANDIE Ceftriaxone Sodium 2 gm/ (Sodium Chloride) 50 mls @ 100 mls/hr IV Q24H [facility]S [facility]CLUDE 234 BEDS AT [facility] Last Infusion: 02/24/24 09:04 Dose: Infused Documented By: MANDIE Dextrose/Sodium Chloride (D5ns) 1,000 mls @ 80 mls/hr IVCONT .[id number] COUNTS INCLUDE 234 BEDS AT [facility] Last Admin: 02/24/24 08:40 Dose: 80 mls/hr Documented By: MANDIE Lidocaine (Lidocaine 4 % Patch Adh..Patch) 1 patch TRANSDERMA DAILY [facility] 234 BEDS AT [facility]; Protocol Last Admin: 02/24/24 08:38 Dose: 1 patch Documented By: MANDIE Losartan Potassium (Losartan Potassium 50 Mg Tablet) 100 mg PO BEDTIME [facility]S [facility]CLUDE 234 BEDS AT [facility]; Protocol Last Admin: 02/23/24 20:58 Dose: 100 mg Documented By: LORELEI Magnesium Hydroxide (Milk Of Magnesia 30 Ml Oral.Susp) 30 ml PO TID PRN PRN Reason: anxiety/restlessness Last Admin: 02/23/24 12:36 Dose: 30 ml Documented By: CARTER Metoprolol Tartrate (Metoprolol Tartrate 25 Mg Tablet) 25 mg PO BID [facility]S [facility]CLUDE 234 BEDS AT [facility]; Protocol Last Admin: 02/24/24 08:36 Dose: 25 mg Documented By: MANDIE Omeprazole (Omeprazole 40 Mg Capsule.Dr) 40 mg PO BID@0630,1630 [facility]CLUDE 234 BEDS AT [facility] Last Admin: 02/24/24 06:00 Dose: 40 mg Documented By: LORELEI Ondansetron HCl (Ondansetron Hcl 4 Mg/2 Ml Vial) 4 mg IVPUSH Q6H PRN PRN Reason: Nausea and Vomiting Last Admin: 02/20/24 09:54 Dose: 4 mg Documented By: ZONIA Oxycodone HCl (Oxycodone Hcl Immed Release 5 Mg Tablet) 5 mg PO Q4H PRN PRN Reason: Pain, Moderate(Pain Scale 4-6) Last Admin: 02/24/24 08:39 Dose: 5 mg Documented By: MANDIE Sodium Chloride (0.9 % Sodium Chloride Flush 3 Ml Syringe) 3 ml IVFLUSH QSHIFT COUNTS INCLUDE 234 BEDS AT [facility] Last Admin: 02/24/24 08:38 Dose: 3 ml Documented By: MANDIE Labs 02/24/24 06:53 02/24/24 06:53 Labs: Laboratory Results - last 24 hr 02/24/24 06:53 MCV 92.0 MCH 32.2 MCHC 34.9 RDW 13.8 Plt Count 275 MPV 9.3 L Absolute Nucleated RBC 0.000 Nucleated RBC % (auto) 0.0 Anion Gap 10 L Estim Creat Clear Calc 100.7 Estimated GFR > 60 Fasting Glucose 129 H Calcium 8.4 D Magnesium 2.1 Total Bilirubin 0.9 Direct Bilirubin 0.5 AST 28 ALT 42 H Alkaline Phosphatase 114 Total Protein 5.9 L Albumin 2.9 L Microbiology Microbiology Results: Microbiology 02/22/24 06:36 Blood Culture - Preliminary Blood - Venous No growth after 48 hours. 02/22/24 06:36 Blood Culture - Preliminary Blood - Venous No growth after 48 hours. 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 due to gallstone pancreatitis, Acute biliary pancreatitis/cholangitis/obstructive jaundice complicated by klebsiella bacteremia MRCP shows tiny filling defects in the distal CBD questionable for small stones/sludge. Mild interstitial pancreatitis noted. 1.3cm lesion R lobe liver, seen on prior imaging studies Suspect passed sludge/stone, no need for ercp at this point, patient already s/p cholecystectomy continue IV ceftriaxone, Negative repeat culture from 02/22/24, ID appreciated, plan for 10-14 days iv ceftriaxone, if cultures stay negative will need midline/picc, plan to do abx at home bili trending down, jaundice resolved, monitor advanced to solids suspected PUD omeprazole increased to 40mg bid acute Hypoxic respiratory failure resolved now on room air HTN metoprolol, losartan, and amlodipine History PE/DVT s/p IVF filter -- not on OAC (had liver hematoma) Full Code DVT pptx, lovenox reason for continued hospitalization: place picc/midline, better tolerance of solids, safe discharge plan Quality Stroke Does the patient have a stroke diagnosis?: No VTE Prior VTE?: No VTE Risk Level:: Medical - moderate - high VTE Device Contraindication: N/A - Device Ordered VTE Drug Contraindication: N/A - Med Ordered
--- NOTE | 2024-02-24 16:27 | HO.MIDLINE ---
Midline Insertion MIDLINE INSERTION Diagnosis: bacteremia Indication: 1 wk of ABT Pertinent Labs: reviewed Technique: Using sterile technique including cap and mask, glove and drape, the right arm was prepped and draped in the usual sterile fashion of full barrier technique with CHG. Using ultrasound guidance, right brachial vein access was obtained . 4FR nonPASV PowerMidline was positioned. The procedure was performed in community health. Ultrasound was used to document vein patency and for needle entry. A formal ultrasound picture was recorded. V[employer] has released the line for use and it is currently dressed with a StatLock, Tegaderm, and CHG disc. Verification has been performed for blood return and line patency. Arm Circumference: 34.5cm Equipment: BARD PowerMidline Catheter Catheter Type: 4FR single lumen nonPASV PowerMidline catheter Lot #: [id number]
[2024-02-24 16:41] VITALS: BP 165/76; PULSE 84; RESP 17; TEMP 37.1; O2SAT 94
[2024-02-24] MEDS: Milk of Magnesia 30 ML ORAL.SUSP PO (17:04)
[2024-02-24 19:28] VITALS: BP 154/69; PULSE 74; RESP 20; TEMP 37.7; O2SAT 97
[2024-02-24] MEDS: amLODIPine Besylate 5 MG TABLET PO (20:26)
[2024-02-24] MEDS: Losartan Potassium 50 MG TABLET 100 MG PO (20:26)
[2024-02-24] MEDS: Heparin Sodium,Porcine Flush 50 UNITS, 0.9 % Sodium Chloride Flush 5 ML IVFLUSH (20:35)
[2024-02-25] VITALS: BP 164/78; PULSE 73; RESP 20; TEMP 36.6; O2SAT 95
[2024-02-25] MEDS: Acetaminophen 325 MG TABLET 650 MG PO (00:03)
[2024-02-25] MEDS: 0.9 % Sodium Chloride Flush 3 ML SYRINGE IVFLUSH ×2 (00:04→08:24)
[2024-02-25 04:00] VITALS: BP 131/70; PULSE 74; RESP 20; TEMP 36.3; O2SAT 96
[2024-02-25] MEDS: Omeprazole 40 MG CAPSULE.DR PO (05:18)
[2024-02-25 08:00] VITALS: BP 138/71; PULSE 86; RESP 18; TEMP 36.4; O2SAT 96
[2024-02-25] MEDS: Calcium Carbonate 750 MG TAB.CHEW PO (08:22)
[2024-02-25] MEDS: Enoxaparin Sodium 40 MG/0.4 ML SYRINGE SUBCUT (08:23)
[2024-02-25] MEDS: Lidocaine 4 % Patch ADH..PATCH 1 PATCH TRANSDERMA (08:23)
[2024-02-25] MEDS: cefTRIAXone sodium 2 GM in 0.9 % Sodium Chloride 50 ML IV (08:24)
[2024-02-25] MEDS: Heparin Sodium,Porcine Flush 50 UNITS, 0.9 % Sodium Chloride Flush 5 ML IVFLUSH (08:30)
--- NOTE | 2024-02-25 08:47 | P.PNGS_ITS ---
Subjective Subjective Date of Service: 02/28/24 Interval history: Feels well this morning Denies abdominal pain Passing flatus and BMs Says oral intake has improved Physical Exam 2 Vital Signs: Vital Signs: Last Vital Signs Temp 97.4 F 02/25/24 04:00 Pulse 74 02/25/24 04:00 Resp 20 02/25/24 04:00 BP 131/70 02/25/24 04:00 Pulse Ox 96 02/25/24 04:00 O2 Del Method Room Air 02/25/24 04:00 O2 Flow Rate 2 02/22/24 03:59 BMI result Body Mass Index 29.5 Const: Other: Sitting up on chair, looks well General: comfortable and no acute distress Resp: Effort & Inspection: normal respiratory effort Cardio: Rate: regular rate GI: Palpation (GI): Soft to palpation, not firm, nontender and no guarding Objective Data Active Medications Acetaminophen (Acetaminophen 325 Mg Tablet) 650 mg PO Q6H PRN PRN Reason: Fever >100.4 and pain Last Admin: 02/25/24 00:03 Dose: 650 mg Documented By: RADHA Amlodipine Besylate (Amlodipine Besylate 5 Mg Tablet) 5 mg PO BEDTIME [facility]; Protocol Last Admin: 02/24/24 20:26 Dose: 5 mg Documented By: MANDIE Calcium Carbonate (Calcium Carbonate 750 Mg Tab.Chew) 750 mg PO Q6H PRN PRN Reason: Heartburn Last Admin: 02/25/24 08:22 Dose: 750 mg Documented By: TRACEY Heparin Sodium (Porcine) 50 (units/ Sodium Chloride 5 ml) 0 units IVFLUSH TID [facility] Last Admin: 02/25/24 08:30 Dose: 50 unit Documented By: TRACEY Enoxaparin Sodium (Enoxaparin Sodium 40 Mg/0.4 Ml Syringe) 40 mg SUBCUT Q24H LEYLA Last Admin: 02/25/24 08:23 Dose: 40 mg Documented By: TRACEY Hydromorphone HCl (Hydromorphone Hcl 0.5 Mg/0.5 Ml Syringe) 0.25 mg IVPUSH Q3H PRN; Protocol PRN Reason: Pain, Severe (Pain Scale 7-10) Last Admin: 02/24/24 16:47 Dose: 0.25 mg Documented By: MANDIE Ceftriaxone Sodium 2 gm/ (Sodium Chloride) 50 mls @ 100 mls/hr IV Q24H [facility] Last Admin: 02/25/24 08:24 Dose: 100 mls/hr Documented By: TRACEY Lidocaine (Lidocaine 4 % Patch Adh..Patch) 1 patch TRANSDERMA DAILY [facility]; Protocol Last Admin: 02/25/24 08:23 Dose: 1 patch Documented By: TRACYE Losartan Potassium (Losartan Potassium 50 Mg Tablet) 100 mg PO BEDTIME [facility]; Protocol Last Admin: 02/24/24 20:26 Dose: 100 mg Documented By: MANDIE Magnesium Hydroxide (Milk Of Magnesia 30 Ml Oral.Susp) 30 ml PO TID PRN PRN Reason: anxiety/restlessness Last Admin: 02/24/24 17:04 Dose: 30 ml Documented By: MANDIE Metoprolol Tartrate (Metoprolol Tartrate 25 Mg Tablet) 25 mg PO BID [facility]; Protocol Last Admin: 02/24/24 20:26 Dose: 25 mg Documented By: MANDIE Omeprazole (Omeprazole 40 Mg Capsule.Dr) 40 mg PO BID@0630,1630 [facility] Last Admin: 02/25/24 05:18 Dose: 40 mg Documented By: RADHA Ondansetron HCl (Ondansetron Hcl 4 Mg/2 Ml Vial) 4 mg IVPUSH Q6H PRN PRN Reason: Nausea and Vomiting Last Admin: 02/20/24 09:54 Dose: 4 mg Documented By: ZONIA Oxycodone HCl (Oxycodone Hcl Immed Release 5 Mg Tablet) 5 mg PO Q4H PRN PRN Reason: Pain, Moderate(Pain Scale 4-6) Last Admin: 02/24/24 15:24 Dose: 5 mg Documented By: MANDIE Sodium Chloride (0.9 % Sodium Chloride Flush 3 Ml Syringe) [facility] Last Admin: 02/25/24 08:24 Dose: 3 ml Documented By: TRACEY Labs 02/24/24 06:53 02/25/24 08:53 Microbiology Microbiology Results: Microbiology 02/22/24 06:36 Blood Culture - Preliminary Blood - Venous No growth after 48 hours. 02/22/24 06:36 Blood Culture - Preliminary Blood - Venous No growth after 48 hours. Procedures Date of Service Date of Service: 02/28/24 Progress Note: A&P Assessment and plan (1) Biliary acute pancreatitis: Status: Acute Assessment and Plan: Clinically looks well States he is ready to go home If it tolerating adequate oral intake, okay to DC home Abdomen remained soft and benign He will be discharged on IV antibiotics with a PICC line because of bacteremia on admission Has been afebrile for over 24 hours labs ok pancreatitis/ elevated LFTs likely from retained sludge? in CBD Time Spent With Patient Time: Total time managing care of this patient today ____ minutes. Quality Stroke Does the patient have a stroke diagnosis?: No VTE Prior VTE?: No VTE Risk Level:: Medical - moderate - high VTE Device Contraindication: N/A - Device Ordered VTE Drug Contraindication: N/A - Med Ordered
[2024-02-25 09:09] VITALS: BP 138/71; PULSE 78
[2024-02-25] MEDS: Metoprolol Tartrate 25 MG TABLET PO (09:09)
[2024-02-25 09:36] LABS: Anion Gap 11 (12-20); Blood Urea Nitrogen 10 mg/dL (9-16); Calcium 8.5 mg/dL (8.4-10.2); Carbon Dioxide 27 mmol/L (22-29); Chloride 105 mmol/L (96-108); Creatinine Clr Calc Pharmacy 96.4; Estimated Glomerular Filt Rate > 60; Glucose Random 133 mg/dL (60-115); Potassium 3.5 mmol/L (3.3-5.1); Sodium 139 mmol/L (135-145)
--- NOTE | 2024-02-25 10:59 | MHC.CM.PN ---
Second IMM 02/25/24, pt has been medically cleared for DC, he will go home via family transport, and have home care services from [facility] and [facility] Home infusion.
--- NOTE | 2024-02-25 11:17 | PM.DS ---
DS: Providers Provider Date of Service: 02/25/24 Date of admission: 02/18/24 08:39 Primary care physician: Agustin Mullen MD Consults: 02/18/24 08:38 Consult to Gastroenterology Routine Consulting Provider: Alexi Neves Reason for consultation: pancreatitis, s/p CCK, now with likely CBD stone, fevers at home 02/20/24 10:28 Consult to Infectious Diseases [place]ine [place]ing [place] [facility] [place] Reason for consultation: klebsiella bacteremia DS: Diagnosis Discharge Diagnosis (1) Biliary acute pancreatitis: Status: Acute (2) Bacteremia due to Klebsiella pneumoniae: Status: Acute (3) Abnormal LFTs: Status: Acute (4) Acute pancreatitis: Status: Acute DS: Summary Hospital Course Hospital Course: Admission note The patient is a 73 year old male with a PMH of HTN, CAD, GERD, gallstones s/p removal (complicated hospitalization in November 2023) who presents to the ED with complaints of abdominal pain which began on the day prior to admission. THe patient reports that he has had abdominal symptoms and pain since his hospitalization in November but yesterday, the pain was different (lower/mid abdominal) and severe. He has been unable to keep orals down. He reports fevers of 101 on the day prior to admission. Had one episode of non-bloody, non-bilious vomiting. No diarrhea. On the day of admission, the patient was ambulating back to his bedroom after using the bathroom, at which point he had a near syncopal episode. He states he began feeling week and was slowly brought down to the floor with the help of his . No reports or chest pain or shortness of breath. Work up in the ED revealed LFTs in an obstructive pattern and CT questionable for distal CBD stone. He has been given 2L IVF, multiple rounds of IV analgesics and now will be admitted for further care. Hospital course The patient was admitted for treatment of Acute biliary pancreatitis/cholangitis/obstructive jaundice complicated by klebsiella bacteremia as blood cultures turned positive. An MRCP shows tiny filling defects in the distal CBD questionable for small stones/sludge. Mild interstitial pancreatitis noted. 1.3cm lesion R lobe liver, seen on prior imaging studies as Suspect passed sludge/stone, no need for ERCP at this point per GI team who followed the patient, patient already s/p cholecystectomy. Treated with IV ceftriaxone as Negative repeat culture from 02/22/24. evaluated by ID who recommended plan for 10-14 days iv ceftriaxone, a PICC line was placed. his received informational session as bilirubin trended down, jaundice resolved and he was able to tolerate diet. fpr suspected PUD omeprazole increased to 40mg bid noticed to have acute Hypoxia which has resolved and now on room air with no process noted on images. Discharge Plan Continue Ceftriaxone as prescribed Oxycodone as needed for pain control Increase Omeprazole to twice daily Follow with PCP as outpatient for arrangement of care. Time Attestation Discharge Coordination Time (in mins): 37 Quality: Safe Use of Opioids Does Pt have an Active Cancer Diagnosis on the Problem List?: No Quality: Stroke Does the patient have a stroke diagnosis?: No Physical Exam Vital Signs: Vital Signs: Last Vital Signs Temp 97.5 F 02/25/24 08:00 Pulse 78 02/25/24 09:09 Resp 18 02/25/24 08:00 BP 138/71 02/25/24 09:09 Pulse Ox 96 02/25/24 08:00 O2 Del Method Room Air 02/25/24 08:00 O2 Flow Rate 2 02/22/24 03:59 BMI result Body Mass Index 29.5 Const: Other: Constitutional : Awake, interactive, not in distress Neck : Normal inspection, Supple Cardiovascular : RRR, no JVP, no lower extremity edema Respiratory : good bilateral air entry, no crackles, wheezes or rhonchi Gastrointestinal: soft, lax, Normal bowel sounds, Non tender Skin : Warm, Dry Neurological : Alert & oriented x3, No focal deficit DS: Data Data Completed and Pending Completed studies during hospitalization [Text1]: Procedures Control Bleeding in Pelvic Cavity, Open Approach (11/10/23) Drainage of Pelvic Cavity with Drainage Device, Percutaneous Approach (11/10/23) Extirpation of Matter from Pelvic Region Subcutaneous Tissue and Fascia, Open Approach (11/10/23) Insertion of Infusion Device into Superior Vena Cava, Percutaneous Approach (11/10/23) Insertion of Intraluminal Device into Inferior Vena Cava, Percutaneous Approach (11/10/23) Resection of Gallbladder, Percutaneous Endoscopic Approach (11/10/23) Transfusion of Nonautologous Frozen Plasma into Peripheral Vein, Percutaneous Approach (11/10/23) Transfusion of Nonautologous Platelets into Peripheral Vein, Percutaneous Approach (11/10/23) Transfusion of Nonautologous Red Blood Cells into Peripheral Vein, Percutaneous Approach (11/10/23) Ultrasonography of Superior Vena Cava, Guidance (11/10/23) Labs on day of discharge: Laboratory Results - last 24 hr 02/25/24 08:53 Sodium 139 Potassium 3.5 D Chloride 105 Carbon Dioxide 27 Anion Gap 11 L BUN 10 Creatinine 0.69 Estim Creat Clear Calc 96.4 Estimated GFR > 60 Random Glucose 133 H Calcium 8.5 Preliminary micro results at discharge 02/22/24 06:36 Blood Culture - Preliminary Blood - Venous No growth after 48 hours. 02/22/24 06:36 Blood Culture - Preliminary Blood - Venous No growth after [address] scan - abdomen: Radiologist's impression: ITS Impressions Abdomen/Pelvis CT 02/18/24 05:27 IMPRESSION: 1. Peripancreatic infiltration/fluid consistent with acute pancreatitis. 2. Common bile duct measures 8 mm. There is a questionable hyperdensity within the distal common bile duct measuring approximately 3 mm. This could be further evaluated with MRCP. 3. Diverticulosis without diverticulitis. 4. Enlarged prostate gland measuring 8.1 x 6 x 6.5 cm. Fleischner guidelines were followed. Cholangiopancreatography MRI 02/18/24 10:37 IMPRESSION: Tiny filling defects in the distal common bile duct questionable for small stones or sludge. The intra and extrahepatic bile ducts do not appear dilated, common bile duct measuring 7 mm. Changes of mild interstitial pancreatitis similar to earlier CT. 1.3 cm lesion in the right lobe of the liver. This probably corresponds to ultrasound finding October 2023 and enhancing lesion on earlier abdominal and pelvic CT scan the same day. This may represent an atypical hemangioma. Further characterization with dedicated liver MRI according to a liver mass protocol with and without IV contrast recommended. Discharge Plan Discharge Anticipated Discharge Date/Time: 02/25/24 11:12 Patient Disposition: Home Health Service Discharge Diagnosis: Klebsiella Bacteremia Pancreatitis Referrals: Lexie FIGUEROA [Outside] - 1 Week Agustin Mullen MD [Primary Care Provider] - 1 Week Discharge Medications: New lidocaine [Lidocaine Pain Relief] 4 % Adhesive Patch,Medicated 1 patch transdermal DAILY 30 Days Qty: 30 0RF Protocol: Apply to: Apply to: Low back omeprazole 40 mg Capsule,Delayed Release(Dr/Ec) 40 mg PO BID@0630,1630 Qty: 60 0RF ceftriaxone 2 gram Recon Soln 2 g IV Q24H Qty: 8 0RF oxycodone 5 mg Tablet 5 mg PO Q4H PRN (Reason: Pain, Moderate(Pain Scale 4-6)) Qty: 20 0RF Rx Instructions: Partial Fill upon patient request. Continued amlodipine 5 mg tablet 5 mg PO BEDTIME metoprolol tartrate 25 mg Tablet 25 mg PO BID Qty: 60 0RF Protocol: Hold for SBP/HR < HOLD for SBP < : 90 HOLD for HR < : 60 Rx Instructions: Replaces prior dose of 12.5 mg bid losartan 100 mg tablet 100 mg PO BEDTIME atorvastatin 20 mg tablet 20 mg PO Q OTHER DAY tramadol 50 mg tablet 50 mg PO BID PRN (Reason: Pain) aspirin [Adult Low Dose Aspirin] 81 mg tablet,delayed release (DR/EC) 81 mg PO DAILY acetaminophen 500 mg tablet 500 mg PO Q6H PRN (Reason: Pain) glucosamine-chondroitin 500-400 mg capsule 1 cap PO DAILY Rx Instructions: give with meal/snack magnesium oxide 500 mg tablet 500 mg PO DAILY mecobalamin (vitamin B12) 2,500 mcg tablet,chewable 3,000 mcg PO DAILY cholecalciferol (vitamin D3) 25 mcg (1,000 unit) capsule 25 mcg PO DAILY Discontinued omeprazole 40 mg capsule,delayed release(DR/EC) 40 mg PO BEDTIME Discharge Orders: Discharge Order (Routine); Ordered 02/25/24 Ordered By: Parag Delgado Diet: Advance to usual diet Activity on Discharge: As tolerated Stand Alone Forms: Patient Portal Discharge page Print Language: Bangladeshi Care Plan Goals: Read below Health Concerns: Read below Plan of Treatment: Read below Assessment: Continue Ceftriaxone as prescribed Oxycodone as needed for pain control Increase Omeprazole to twice daily Follow with PCP as outpatient for arrangement of care.
--- NOTE | 2024-02-25 11:55 | P.F2F_ITS ---
Service Date Service Date: 02/25/24 Encounter Date of encounter: 02/25/24 Reasons for Services Signs and symptoms assessed: Klebsiella bacteremia physical deconditioning Reason for half-way: central line care and medication management Reason for physical therapy: home safety and mobility and therapeutic exercises Homebound: Leaving the home is medically contraindicated at this time without the asist of a device and/or another person due th the listed conditions above and below. Reason homebound: unsteady gait / fall risk Certification: Based on the above findings, I certify that this patient is confined to the home and needs intermittent half-way care, physical therapy and/or speech therapy, or continues to need occupational therapy. The patient is under my care, and I have initiated the establishment of the plan of care. The patient will be followed by a physician who will periodically review the plan of care. Time Spent With Patient Time: Total time managing care of this patient today ____ minutes.
--- NOTE | 2024-02-29 11:33 | P.CDIM_ITS ---
PROVIDER RESPONSE TEXT: To clarify, the appropriate diagnosis supported by the clinical indicators: Hypokalemia QUERY TEXT: PHYSICIAN'S DOCUMENTATION REQUEST Date of Query: 02/25/2024 09:42 AM EDT Patient Name: Darrick Ty Admit Date: 02/18/2024 Dear Parag Delgado, A review of the medical record indicates additional documentation may be needed. Please review below and update the documentation accordingly. Clinical Indicators: on 02/24/24, potassium 2.8 IV KCL 10 meq in 100 mls Q1H, 2 bags ordered on 02/24/24 Based on the above, could you clarify the appropriate diagnosis, if significant, that supports the ab ove abnormalities and additional evaluation, monitoring, and/or treatment rendered: Hypokalemia Labs indicate a diagnosis of (please specify) Other (explain) Clinically unable to determine (explain) Thank you, Smiley Harden RN Use of terms such as suspected, likely, concern for, or probable (associated with a specific diagnosi s that is being evaluated, monitored, or treated as if it exists) are acceptable and can be coded in the inpatient se tting, when documented at the time of discharge. Please use your independent medical judgment in providing your response. THIS QUERY IS PART OF THE PERMANENT MEDICAL RECORD
== END 2024-02-25 12:20 | disposition home health service (06) | DRG 438 ==
LOC: HO.ED 07:55 → HO.EDOVER 08:46 → HO.IMC 14:34
PROVIDERS: Internal Medicine; Physician Assistant; Admitting Provider Family Medicine; Emergency Provider Emergency Medicine; PCP Family Medicine; Visit Provider Student in an Organized Health Care Education/Training Program
DX: K85.10 Biliary acute pancreatitis without necrosis or infection (principal); J96.01 Acute respiratory failure with hypoxia; K56.7 Ileus, unspecified; R78.81 Bacteremia; K80.31 Calculus of bile duct with cholangitis, unspecified, with obstruction; I25.10 Atherosclerotic heart disease of native coronary artery without angina pectoris; K27.9 Peptic ulcer, site unspecified, unspecified as acute or chronic, without hemorrhage or perforation; E87.6 Hypokalemia; M54.50 Low back pain, unspecified; G89.29 Other chronic pain; I10 Essential (primary) hypertension; Z86.711 Personal history of pulmonary embolism; B96.1 Klebsiella pneumoniae [K. pneumoniae] as the cause of diseases classified elsewhere; Z86.718 Personal history of other venous thrombosis and embolism; Z87.891 Personal history of nicotine dependence; Z79.899 Other long term (current) drug therapy
CPT/HCPCS: 36410; 36415; 74177; 74181; 80048; 80053; 80076; 82248; 83605; 83690; 83735; 84484; 85025; 85027; 85610; 86140; 87040; 87077; 87186; 87205; 93005; 97163; 99285; C1751; C1758; C9113; J0696; J1170; J1642; J1650; J2270; J2405; J2543; J3430; J3480; J7120; Q9967

== ENCOUNTER → 2024-02-18 04:08 | Outpatient (BNV) | payer MEDICARE, SELFPAY | PROVIDERS: Admitting Provider Family Medicine; Emergency Provider Emergency Medicine; PCP Family Medicine; Visit Provider Internal Medicine Cardiovascular Disease | DX: R94.31 Abnormal electrocardiogram [ECG] [EKG] (principal) | CPT/HCPCS: 93010 ==

== ENCOUNTER → 2024-02-18 08:39 | Outpatient (BNV) | payer MEDICARE, SELFPAY | PROVIDERS: Admitting Provider Family Medicine; Emergency Provider Emergency Medicine; PCP Family Medicine; Visit Provider Surgery | DX: K85.10 Biliary acute pancreatitis without necrosis or infection (principal) | CPT/HCPCS: 99222; 99232 ==

== ENCOUNTER → 2024-02-18 08:39 | Outpatient (BNV) | payer MEDICARE, SELFPAY | PROVIDERS: Admitting Provider Family Medicine; Emergency Provider Emergency Medicine; PCP Family Medicine; Visit Provider Physician Assistant | DX: K85.10 Biliary acute pancreatitis without necrosis or infection (principal); R78.81 Bacteremia; B96.1 Klebsiella pneumoniae [K. pneumoniae] as the cause of diseases classified elsewhere; R79.89 Other specified abnormal findings of blood chemistry | CPT/HCPCS: 99223; 99232; 99233; 99239; G0180 ==

== ENCOUNTER → 2024-02-18 08:39 | Outpatient (BNV) | payer MEDICARE, SELFPAY | PROVIDERS: Admitting Provider Family Medicine; Emergency Provider Emergency Medicine; PCP Family Medicine; Visit Provider Internal Medicine | DX: R78.81 Bacteremia (principal); B96.1 Klebsiella pneumoniae [K. pneumoniae] as the cause of diseases classified elsewhere; K85.10 Biliary acute pancreatitis without necrosis or infection | CPT/HCPCS: 99222 ==

== ENCOUNTER 2024-03-02 11:05 | Outpatient (REF) | payer MEDICARE, SELFPAY ==
[2024-03-02 11:09] LABS: MANUAL DIFF FLAG NO
[2024-03-02 11:28] LABS: Basophils Absolute Auto 0.1 X10*3/uL (0.0-0.2); Basophils Percent Auto 0.6 % (0-2); Eosinophils Absolute Auto 0.2 X10*3/uL (0.0-0.4); Eosinophils Percent Auto 2.1 % (0-4); Hematocrit 39.6 % (42.0-52.0); Hemoglobin 13.1 g/dl (14.0-18.0); Imm Gran Abs Auto 0.17 X10*3/uL (0.00-0.03); Imm Gran Pct Auto 2.1 % (0.0-0.4); Lymphocytes Absolute Auto 1.3 X10*3/uL (1.2-4.9); Lymphocytes Percent Auto 15.7 % (20-40); Mean Corpuscular HGB Conc 33.1 g/dl (31.0-36.0); Mean Corpuscular Hemoglobin 31.9 pg (27.0-33.0); Mean Corpuscular Volume 96.4 fL (80.0-98.0); Mean Platelet Volume 9.2 fL (9.4-12.4); Monocytes Absolute Auto 0.6 X10*3/uL (0.1-1.2); Monocytes Percent Auto 7.6 % (2-11); Neutrophils Absolute Auto 5.9 x10*3/uL (2.0-8.3); Neutrophils Percent Auto 71.9 % (45-73); Platelet Count 590 X10*3/uL (160-400); Red Blood Count 4.11 X10*6/uL (4.60-5.80); Red Cell Distribution Width 14.1 % (11.0-16.0); White Blood Count 8.1 X10*3/uL (4.8-10.8)
[2024-03-02 12:16] LABS: Anion Gap 13 (12-20); Blood Urea Nitrogen 10 mg/dL (9-16); Calcium 9.9 mg/dL (8.4-10.2); Carbon Dioxide 29 mmol/L (22-29); Chloride 104 mmol/L (96-108); Estimated Glomerular Filt Rate > 60; Glucose Random 90 mg/dL (60-115); Potassium 4.6 mmol/L (3.3-5.1); Sodium 141 mmol/L (135-145)
== END 2024-03-02 11:06 | disposition home or self-care (01) ==
LOC: HO.HVNA 11:05
PROVIDERS: Visit Provider Internal Medicine
DX: K85.10 Biliary acute pancreatitis without necrosis or infection (principal)
CPT/HCPCS: 36415; 80048; 85025

== ENCOUNTER 2024-03-03 13:41 | Outpatient (AMB) | payer MEDICARE, SELFPAY ==
--- NOTE | 2024-03-03 14:17 | MHC.OFFVIS ---
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 Allergies No Known Allergies Allergy (Verified 03/03/24 14:19) HPI HPI Ref.[facility],Bacteremia, med.end on 03/04/24: Details: He has had Klebsiella bacteremia ,GI source PFS Medical History Pulmonary embolism Postoperative anemia due to acute blood loss [place] disease Hematoma GERD (gastroesophageal reflux disease) Elevated cholesterol Low back pain Depression CAD (coronary artery disease) Stable angina Gallstones Scoliosis Carpal tunnel syndrome C2 cervical fracture Arthritis Hypertension Surgical History S/P laparoscopic cholecystectomy Hx of carpal tunnel repair History of esophagogastroduodenoscopy (EGD) H/O colonoscopy History of cardiac cath Family History Father HTN (hypertension) Cardiac arrest Mother HTN (hypertension) Stroke Sister HTN (hypertension) Cancer Social History Household Members: Spouse Household Members Other:: tereza Housing: House Are you a primary nonfarm animal caretaker to a significant other at home: No Do you presently have visiting nurse or other home services: No Unable to assess alcohol history related to: Unable to respond Alcohol intake: never Patient Tobacco Use Status: Former Tobacco user Quit Date: 1970 Tobacco use type: Cigarette Years Smoked: 3 +/- service: No Physical Exam Vital Signs: Last Vital Signs BP 118/62 03/03/24 14:18 BMI result Body Mass Index 29.0 Assessment & Plan Assessment & Plan (1) Bacteremia due to Klebsiella pneumoniae: Comment: Seems resovling Code(s): R78.81 - Bacteremia; B96.1 - Klebsiella pneumoniae [K. pneumoniae] as the cause of diseases classified elsewhere Category: Medical Plan: Continue off antibiotics See prn need. Orders: Orders IR cvc remove any age 0403/03/24 B96.1 - Klebsiella pneumoniae [K. pneumoniae] as the cause of diseases classified elsewhere, R78.81 - Bacteremia Medications: New nystatin swish and swallow 1 mL PO BID 14 mL 0RF 7 days Coding Level of Care Code Est Pt Level 4 (25970) Diagnoses Bacteremia due to Klebsiella pneumoniae R78.81; B96.1
[2024-03-03 14:18] VITALS: BP 118/62; BMI 29.0
== END 2024-03-03 15:14 | disposition home or self-care (01) ==
PROVIDERS: PCP Family Medicine; Visit Provider Internal Medicine
DX: R78.81 Bacteremia (principal); B96.1 Klebsiella pneumoniae [K. pneumoniae] as the cause of diseases classified elsewhere
CPT/HCPCS: 99214

== ENCOUNTER → 2024-03-03 13:41 | Outpatient (BNVA) | payer MEDICARE, SELFPAY | PROVIDERS: PCP Family Medicine; Visit Provider Internal Medicine | DX: R78.81 Bacteremia (principal); B96.1 Klebsiella pneumoniae [K. pneumoniae] as the cause of diseases classified elsewhere | CPT/HCPCS: 99212 ==

== ENCOUNTER 2024-03-23 08:51 | Outpatient (REF) | payer MEDICARE, SELFPAY ==
[2024-03-23 09:10] LABS: MANUAL DIFF FLAG NO
[2024-03-23 09:27] LABS: Basophils Percent Auto 0.6 % (0-2); Eosinophils Absolute Auto 0.2 X10*3/uL (0.0-0.4); Hematocrit 39.4 % (42.0-52.0); Hemoglobin 13.3 g/dl (14.0-18.0); Imm Gran Abs Auto 0.03 X10*3/uL (0.00-0.03); Imm Gran Pct Auto 0.6 % (0.0-0.4); Lymphocytes Absolute Auto 1.4 X10*3/uL (1.2-4.9); Mean Corpuscular HGB Conc 33.8 g/dl (31.0-36.0); Mean Corpuscular Hemoglobin 32.7 pg (27.0-33.0); Mean Corpuscular Volume 96.8 fL (80.0-98.0); Mean Platelet Volume 9.2 fL (9.4-12.4); Monocytes Absolute Auto 0.6 X10*3/uL (0.1-1.2); Monocytes Percent Auto 11.9 % (2-11); Neutrophils Absolute Auto 2.8 x10*3/uL (2.0-8.3); Neutrophils Percent Auto 55.9 % (45-73); Platelet Count 182 X10*3/uL (160-400); Red Blood Count 4.07 X10*6/uL (4.60-5.80); Red Cell Distribution Width 14.2 % (11.0-16.0)
[2024-03-23 09:46] LABS: Estimated Average Glucose 108 mg/dL; Hemoglobin A1c % 5.4 % (<6.0); Total Hemoglobin (HGBA1C) 3395.0271 umol/L
[2024-03-23 09:57] LABS: Anion Gap 14 (12-20); Blood Urea Nitrogen 12 mg/dL (9-16); Carbon Dioxide 27 mmol/L (22-29); Chloride 106 mmol/L (96-108); Estimated Glomerular Filt Rate > 60; Glucose Fasting 100 mg/dL (60-99); Potassium 4.6 mmol/L (3.3-5.1); Sodium 142 mmol/L (135-145)
== END 2024-03-23 08:52 | disposition home or self-care (01) ==
LOC: HO.LAB 08:51
PROVIDERS: PCP Family Medicine; Visit Provider Family Medicine
DX: R73.9 Hyperglycemia, unspecified (principal); D64.9 Anemia, unspecified; I10 Essential (primary) hypertension
CPT/HCPCS: 36415; 80051; 82565; 82947; 83036; 84520; 85025

== ENCOUNTER 2024-07-31 08:49 | Outpatient (AMB) | payer MEDICARE, SELFPAY ==
[2024-07-31 08:54] VITALS: BP 120/64; PULSE 59; BMI 31.0
--- NOTE | 2024-07-31 08:54 | MHC.OFFVIS ---
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 Accompanied by: Self / Same As Patient Allergies No Known Allergies Allergy (Verified 03/03/24 14:19) Medication List - Last Reconciled 07/31/24 by Te Monzon MD acetaminophen 500 mg PO Q6H PRN amlodipine 5 mg PO BEDTIME aspirin (Adult Low Dose Aspirin) 81 mg PO DAILY atorvastatin 20 mg PO Q OTHER DAY ceftriaxone 2 grams IV Q24H cholecalciferol (vitamin D3) 25 mcg PO DAILY glucosamine-chondroitin 500-400 mg 1 cap PO DAILY losartan 100 mg PO BEDTIME magnesium oxide 500 mg PO DAILY mecobalamin (vitamin B12) 3,000 mcg PO DAILY metoprolol tartrate 25 mg See Protocol PO BID nystatin 1 mL PO BID 7 days omeprazole 40 mg PO BID@0630,1630 tramadol 50 mg PO BID PRN HPI Comments Details: Pleasant 74-year-old gentleman here for follow-up. He has known history of coronary artery disease and previous distal RCA into PDA PCI complicated by side branch occlusion which was PLV. He did well since then. He has no chest discomfort. Blood pressure is well controlled on the current regimen. He has stopped taking the Plavix. He is taking baby aspirin. No bleeding issues. He is limited due to arthritis but denying any significant chest discomfort shortness of breath. 08/02/23: He returns for follow-up. He is denying any chest discomfort shortness of breath. His main complaints in the are related to arthritis involving his lower back and hands. He is saying he continues to work and exercise and has no exertional symptoms. 07/31/24: Here for f/u. He was admitted to [facility] with the last year with cholecystitis and had a rough postsurgical course. He subsequently was readmitted with pancreatitis 2. He said he was in the hospital and rehab for approximately 2 months. He has recovered since then. Continues to get back pain and arthritis issues which limit him. He continues to exercise and do activities and is currently building a deck. [facility] Medical History Pulmonary embolism Postoperative anemia due to acute blood loss [place] disease Hematoma GERD (gastroesophageal reflux disease) Elevated cholesterol Low back pain Depression CAD (coronary artery disease) Stable angina Gallstones Scoliosis Carpal tunnel syndrome C2 cervical fracture Arthritis Hypertension Surgical History S/P laparoscopic cholecystectomy Hx of carpal tunnel repair History of esophagogastroduodenoscopy (EGD) H/O colonoscopy History of cardiac cath Family History Father HTN (hypertension) Cardiac arrest Mother HTN (hypertension) Stroke Sister HTN (hypertension) Cancer Social History Household Members: Spouse Household Members Other:: tereza Housing: House Are you a primary after school caregiver to a significant other at home: No Do you presently have visiting nurse or other home services: No Unable to assess alcohol history related to: Unable to respond Alcohol intake: never Patient Tobacco Use Status: Former Tobacco user Tobacco use type: Cigarette Years Smoked: 3 +/- service: No Review of Systems Const Denies chills, Denies fatigue, Denies fever(s), Denies frequent falls, Denies weakness, Denies weight gain and Denies weight loss ENT Denies dizziness Card Denies chest pain, Denies leg edema, Denies lightheadedness, Denies palpitations, Denies dyspnea and Denies dyspnea on exertion Resp Denies cough, Denies dyspnea and Denies dyspnea on exertion GI Denies hematochezia Musc Denies abnormal gait, Denies muscle weakness, Denies numbness, Denies radiating pain into limb and Denies tingling Neuro Denies abnormal gait, Denies dizziness, Denies frequent falls, Denies numbness, Denies tingling and Denies weakness Endo Denies fatigue and Denies palpitations Physical Exam Vital Signs: Last Vital Signs Pulse 59 07/31/24 08:54 BP 120/64 07/31/24 08:54 BMI result Body Mass Index 31.0 GENERAL APPEARANCE: in no acute distress, well developed, well nourished. NECK/THYROID: no carotid bruit, no jugular venous distention. SKIN: no suspicious lesions, warm and dry. HEART: no murmurs, regular rate and rhythm, S1, S2 normal. LUNGS: clear to auscultation bilaterally. ABDOMEN: normal, bowel sounds present, soft, nontender, nondistended. EXTREMITIES: no clubbing, cyanosis, or edema. PERIPHERAL PULSES: equal. NEUROLOGIC: nonfocal, alert and oriented. PSYCH: mood/affect full range. Assessment & Plan Assessment & Plan (1) Essential hypertension: Comment: Blood pressure is well controlled. Code(s): I10 - Essential (primary) hypertension Category: Medical (2) Stable angina: Code(s): I20.8 - Other forms of angina pectoris Category: Medical Plan Pleasant 74 year gentleman who is here for follow-up. Clinically stable from cardiovascular point of view. Blood pressure is well controlled. No anginal symptoms. I have advised him to continue to exercise and stay physically active. He will reach out to us if he had any issues otherwise he will see us back in 1 year. Thank you for allowing me to participate in the care of your patient. Please feel free to contact me if you have any questions. Coding Level of Care Code Est Pt Level 3 (03004) Diagnoses Essential hypertension I10 Stable angina I20.8
== END 2024-07-31 09:19 | disposition home or self-care (01) ==
PROVIDERS: PCP Family Medicine; Visit Provider Internal Medicine Cardiovascular Disease
DX: I10 Essential (primary) hypertension (principal); I20.89 Other forms of angina pectoris
CPT/HCPCS: 99213

== ENCOUNTER → 2024-07-31 08:49 | Outpatient (BNVA) | payer MEDICARE, SELFPAY | PROVIDERS: PCP Family Medicine; Visit Provider Internal Medicine Cardiovascular Disease | DX: I25.118 Atherosclerotic heart disease of native coronary artery with other forms of angina pectoris (principal); I10 Essential (primary) hypertension | CPT/HCPCS: 99212 ==

== ENCOUNTER 2025-01-10 06:34 | Outpatient (REF) | payer MEDICARE, SELFPAY ==
--- OUTSIDE RECORDS SUMMARY | 2025-01-10 06:38 | XMS_ITS ---
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 Name Role Phone CAMILLA ELIZABETH Primary Care Provider Unavailabl e Insurance Providers: [...] SUPPLEMEN DG MEDEX CORE Nov 08, 2019 [id number] LIZA MAYNARD PATIENT [place] SUPPLEMEN DG MEDEX SAPPH HUEY Nov 08, 2022 [id number] LIZA MAYNARD PATIENT [place] SUPPLEMEN DG WTW MDX B HEAR AND V Nov 08, 2019 [id number] LIZA MAYNARD PATIENT CIGNA PREFERRED PROVIDER ORGANIZAT ION (PPO) BUILD ING SERVI CE Nov 08, 2011 [id number] [phone] LIZA MAYNARD PATIENT [employer] ([id number]) PRESCRIPT ION May 08, 2007 [id number] [phone] LIZA MAYNARD PATIENT MEDICARE (WNR) MEDICARE (M) PART B Jun 08, 2015 PART B [id number] [phone] LIZA MAYNARD PATIENT MEDICARE (WNR) MEDICARE (M) PART A Jun 08, 2015 PART A [id number] [phone] LIZA MAYNARD PATIENT MEDICARE (WNR) MEDICARE (M) PART B Jun 08, 2015 PART B [id number] LIZA MAYNARD PATIENT MEDICARE (WNR) MEDICARE (M) PART A Jun 08, 2015 PART A [id number] LIZA MAYNARD PATIENT MEDICARE (WNR) MEDICARE (M) PART B Jun 08, 2015 PART B [id number] LIZA MAYNARD PATIENT MEDICARE (WNR) MEDICARE (M) PART A Jun 08, 2015 PART A [id number] LIZA MAYNARD PATIENT Selected Encounter This section includes the information on record at [place] for the Encounter. Date/Time Encounter Type Encounter Description Reason Provider Source Apr 24, 2024 08:30 AM OFFICE O/P EST HI 40 MIN PRIMARY CARE/MEDICINE ICD-10-CM I24.9 Acute ischemic heart disease, unspecified FURCOLO,CAMILLA IHE Encounter Template Text not used by [place] Assessments - Encounter Diagnoses This section includes the primary and secondary diagnoses documented for the Encounter. Date/Time Primary/Secondary Diagnosis Diagnosis Name Provider Source May 26, 2024 11:09 AM PRIMARY Acute ischemic heart disease, unspecified FURCOLO,CAMILLA [facility] [place] [facility] May 26, 2024 11:09 AM SECONDARY Benign prostatic hyperplasia without lower urinry tract symp FURCOLO,CAMILLA [facility] [place] [facility] May 26, 2024 11:09 AM SECONDARY Cervicalgia FURCOLO,CAMILLA [facility] [place] [facility] May 26, 2024 11:09 AM SECONDARY Essential (primary) hypertension FURCOLO,CAMILLA [facility] [place] [facility] May 26, 2024 11:09 AM SECONDARY Gastro-esophageal reflux disease without esophagitis FURCOLO,CAMILLA [facility] [place] [facility] Plan of Treatment: Future Appointments (+ 6 months) and Future Tests (+/- 45 days) The Plan of Treatment section includes future care activities for the patient from [facility] [place] [facility]. This section includes future appointments and future orders which are active, pending or scheduled. Future Appointments This section includes appointments that were scheduled to occur 6 months from the date of the Encounter, up to a maximum of 20 appointments. The data comes from all [facility] facilities. Appointment Date/Time Appointment Type Appointme nt Facility Name Oct 17, 2024 08:00 AM AMBULATORY - REHAB MEDICIN E [facility] Oct 24, 2024 08:00 AM AMBULATORY - MEDICINE [facility] Active, Pending, and Scheduled Orders This section includes a listing of several types of active, pending, and scheduled orders, including clinic medications orders, diagnostic test orders, procedure orders and consult orders; where the start date of the order is 45 days before the date of the Encounter or 45 days after the date of theEncounter. The data comes from all [facility]. Test Date/Time Test Type Test Details Facility Name Apr 24, 2024 12:00 AM Laboratory - Chemi stry Order BASIC METABOLIC PANEL (fasting) BLOOD (SST-SERUM) [facility] Apr 24, 2024 12:00 AM Laboratory - Chemi stry Order LIPID PANEL FASTING BLOOD (SST-SERUM) [facility] Lab Results: +/- 30 days of the encounter This section includes the Chemistry and Hematology Lab Results on record with [place] for the patient. Radiology Reports and Pathology Reports are provided separately, in subsequent sections. Lab Results This section contains the Chemistry/Hematology Results that were resulted 30 days before or 30 daysafter the date of the Encounter. Date/Time Source Result Type Result - Unit Interpretation Reference Range Comment Apr 28, 2024 01:00 AM [facility] OCCULT BLOOD FIT X1 SCREEN(IN-HOUSE) Specimen Type: FECES No comment entered. Ordering Provider: CAMILLA ELIZABETH Report Released Date/Time: Apr 24, 2024 08:48 AM Reporting Lab: [address] [address] Performing Lab: [address] [address] OCCULT BLOOD (FIT)#1 OF 1 Negative NEG Apr 18, 2024 07:48 AM [facility] BASIC METABOLIC PANEL (fasting) Specimen Type: SERUM No comment entered. Ordering Provider: CAMILLA ELIZABETH Report Released Date/Time: Apr 11, 2024 11:41 AM Reporting Lab: [facility] [address] [facility] [address] Performing Lab: [address] [address] UREA NITROGEN 12 mg/dL 7-25 GLUCOSE 100 mg/dL 65-100 SODIUM 141 mmol/L 135-145 POTASSIUM 4.2 mmol/L 3.5-5.0 CHLORIDE 106 mmol/L 100-110 CO2 25 meq/L 20-30 CREATININE, Serum 0.88 mg/dL 0.50-1.40 eGFR(CKD-EPI 2020) 90 mL/min >60 Apr 18, 2024 07:48 AM [facility] LIPID PANEL FASTING Specimen Type: SERUM No comment entered. Ordering Provider: CAMILLA ELIZABETH Report Released Date/Time: Apr 11, 2024 11:41 AM Reporting Lab: [address] [address] Performing Lab: [address] [address] CHOLESTEROL 141 mg/dL TRIGLYCERIDE 159 mg/dL H 0-150 LDL calculated 64 mg/dL 0-129 CHOL/HDL 3.1 HDL CHOLESTEROL 45 mg/dL 40-60 Apr 18, 2024 07:48 AM [facility] LIVER FUNCTION Specimen Type: SERUM No comment entered. Ordering Provider: CAMILLA ELIZABETH Report Released Date/Time: Apr 11, 2024 11:41 AM Reporting Lab: [address] [address] Performing Lab: [address] [address] PROTEIN,TOTAL 7.0 g/dL 6.0-8.3 ALBUMIN 4.0 g/dL 3.5-5.0 ALKALINE PHOSPHATASE 83 U/L 40-150 AST 24 U/L 5-34 ALT 22 U/L BILIRUBIN, TOTAL 1.5 mg/dL H 0.2-1.2 BILIRUBIN, DIRECT 0.5 mg/dL 0-0.5 Vital Signs: All taken on the encounter date This section contains inpatient and outpatient Vital Signs collected on the date of the Encounter. Date/Time Temperature Pulse Blood Pressure Respiratory Rate SP02 Pain Height Weight Body Mass Index Source Apr 24, 2024 08:54 AM 142/80 [facility] [place] [facility] Apr 24, 2024 08:33 AM 96.8 68 164/82 16 97 5 187 30 [place] [facility] [place] [facility] Social History: Smoking Status (Most current) and Tobacco Use (All prior to encounter date) This section includes the most current, and the historical, smoking and tobacco- related health factors from the [place] facility where the Encounter took place. Current Smoking Status This section includes the most current smoking, or tobacco-related health factor, from the [place] facility where the Encounter took place. Date/Time Current Smoking Status Comment [facility] Oct 27, 2023 09:00 AM VA-TOBACCO FORMER USER [place] [facility] [place] [facility] Tobacco Use History This section includes a history of the smoking, or tobacco-related health factors, that were collected on or before the date of the Encounter. The data comes from the [place] facility where the Encounter took place. Date/Time Smoking Status/Tobac co Use Comment Facility Oct 27, 2023 09:00 AM VA-TOBACCO QUIT 15 YRS OR MORE [place] [facility] [place] [facility] Oct 13, 2022 09:30 AM VA-TOBACCO FORMER USER [facility] [place] [facility] Oct 13, 2022 09:30 AM VA-TOBACCO QUIT 15 YRS OR MORE [facility] [place] [facility] Sep 25, 2021 09:00 AM VA-TOBACCO FORMER USER [facility] [place] [facility] Sep 25, 2021 09:00 AM VA-TOBACCO QUIT 15 YRS OR MORE [facility] [place] [facility] May 23, 2019 08:36 AM VA-TOBACCO FORMER USER [facility] [place] [facility] May 23, 2019 08:36 AM VA-TOBACCO QUIT 15 YRS OR MORE [place] [facility] [place] [facility] May 26, 2018 08:24 AM VA-TOBACCO NEVER USED [facility] [place] [facility] May 26, 2018 07:54 AM QUIT TOBACCO USE > 7 YEARS AGO [facility] [place] [facility] Apr 19, 2017 08:50 AM QUIT TOBACCO USE > 7 YEARS AGO [facility] [place] [facility] Apr 15, 2016 09:36 AM QUIT TOBACCO USE > 7 YEARS AGO . [place] [facility] [place] [facility] March 16, 2014 02:49 PM QUIT TOBACCO USE > 7 YEARS AGO quit 40 years ago [facility] [place] [facility] Encounter Notes: All associated encounter notes This section contains the clinical notes associated to the Encounter. Date/Time Encounter Note(s) Provider Source May 11, 2024 06:27 PM LETTERS: LOCAL TITLE: PATIENT LETTER (T) STANDARD TITLE: LETTERS DATE OF NOTE: MAY 11, 2024@18:27 ENTRY DATE: MAY 11, 2024@18:27:40 AUTHOR: CAMILLA ELIZABETH EXP COSIGNER: URGENCY: STATUS: COMPLETED [facility] Toll Free Number Primary Care Telephone Assistance can be reached at extension [phone] [facility] scheduling can be reached at extension [phone] [facility] scheduling can be reached at ext [phone] [place] [address], [address] Dear [place], Your recent test results are as follows: negative for blood in your stool. LAB CHEMISTRY & HEMATOLOGY Collection DT Specimen Test Name Result Units Ref Range 04/28/2024 01:00 FECES FIT1/1 Negative Ref: NEG Please call if you have any questions or concerns. Upcoming Appointments: 10/17/2024 08:00 CWM NO AUDIO HAC E 1 10/24/2024 08:00 CWM/NO/PACT EIGHT 02/20/2025 09:00 CWM/NO/OPTOMETRY/MERHAR Sincerely, Your Primary Care Team [facility] [address] [address] [place], [place] [id number] [facility] [address] [place] [address],[address] [place] [address] [place] [address] [phone] [facility] [address] [facility] [place] [address] [place] [address] [phone] CAMILLA ELIZABETH [facility] [place] [facility] Apr 24, 2024 08:55 AM PHYSICIAN NOTE: LOCAL TITLE: MD NOTE STANDARD TITLE: PHYSICIAN NOTE DATE OF NOTE: APR 24, 2024@08:55 ENTRY DATE: APR 24, 2024@08:55:24 AUTHOR: CAMILLA ELIZABETH EXP COSIGNER: URGENCY: STATUS: COMPLETED cc: routine f.u had GB removal - complicated [id number], bilateral DVTs. s/p IVC filter. had afib with RVR. was hospitalized for 1 mo- then went to rehab, then had pancreatitis. saw cards inpatient- decided no blodd thinners needed- a fib caued by acute stress prost surgery has outside PCP Lexie Marks cardiology: through Dr. Sanjana Barba PMHx: Active problems - Computerized Problem List is the source for the followin. Exposure to potentially hazardous substance ([facility] [id number]) Entered automatically through [employer] Problem List documentation program 2. Hernia of anterior abdominal wall 3. Ischemic heart disease S/p drug eluting Sent in [facility] on 03/28/19 on Brilinta 90mg bid for one yr 4. Hypercholesterolemia 5. Benign prostatic hyperplasia 6. Tinnitus 7. Hearing loss (SNOMED CT 56516307) 8. Low back pain (SNOMED CT 879932732) 9. Neck pain (SNOMED CT 50158263) 10. Tension headache 11. Obesity (SNOMED CT 408959127) 12. Essential hypertension (SNOMED CT 53095477) 13. Gastroesophageal reflux disease (SNOMED CT 260973288) 14. Hiatal hernia (SNOMED CT 48608784) 15. Dysthymia (SNOMED CT 83768650) surgeries: cholecystectomy carpal tunnel repair social history: lives with . 2 floor home they have converted living on 1 floor meds: Active and Recently Outpatient Medications (excluding Supplies): Active Outpatient Medications Status ========= 1) CARBOXYMETHYLCELLULOSE NA 0.5% OPH SOLN INSTILL 1 ACTIVE DROP INTO EACH EYE FOUR TIMES DAILY NEEDED FOR DRY EYE Inactive Outpatient Medications Status ========= 1) LIDOCAINE 5% PATCH APPLY 1 PATCH TOPICALLY ONCE DAILY FOR NERVE PAIN (LEAVE PATCH ON FOR 12 HOURS, THEN REMOVE PATCH) Active Non-VA Medications Status ========= 1) Non-VA ACETAMINOPHEN 325MG TAB 650MG BY MOUTH EVERY 6 ACTIVE HOURS 2) Non-VA AMLODIPINE BESYLATE 5MG TAB 5MG BY MOUTH ONCE ACTIVE DAILY 3) Non-VA ASPIRIN 81MG EC TAB 81MG BY MOUTH EVERY DAY ACTIVE 4) Non-VA ATORVASTATIN CALCIUM 20MG TAB 10MG BY MOUTH ACTIVE EVERY OTHER DAY 5) Non-VA CHOLECALCIF 25MCG (D3-1,000UNIT) TAB 1000UNIT ACTIVE BY MOUTH EVERY DAY 6) Non-VA CYANOCOBALAMIN TAB 3000MG BY MOUTH EVERY DAY ACTIVE 7) Non-VA FISH OIL 1000MG (500MG DHA/EPA) CAP 1000MG BY ACTIVE MOUTH EVERY DAY 8) Non-VA FLAXSEED CAP,ORAL SOME BY MOUTH EVERY DAY ACTIVE 9) Non-VA GLUCOSAMINE/CHONDROITIN CAP/TAB ONE BY MOUTH ACTIVE EVERY DAY 10) Non-VA LOSARTAN 100MG TAB 100MG BY MOUTH ONCE DAILY ACTIVE 11) Non-VA MAGNESIUM OXIDE 420MG TAB 420MG BY MOUTH EVERY ACTIVE DAY 12) Non-VA METOPROLOL TARTRATE 25MG TAB 25MG BY MOUTH ACTIVE TWICE DAILY 13) Non-VA OMEPRAZOLE 20MG EC CAP 40MG BY MOUTH EVERY ACTIVE MORNING 30 MINUTES BEFORE BREAKFAST 14) Non-VA TRAMADOL HCL 50MG TAB 50MG BY MOUTH EVERY 6 ACTIVE HOURS NEEDED 16 Total Medications vitals: B/P: 142/80 (04/24/2024 08:54) pulse: 68 (04/24/2024 08:33) resp: 16 (04/24/2024 08:33) temp: 96.8 F [36.0 C] (04/24/2024 08:33) Ht: 66 in [167.6 cm] (04/22/2023 09:21) Wgt: 187 lb [84.82 kg] (04/24/2024 08:33) BMI: BMI: 30.2 exam: RRR S1 s2 LCTA bilat no LE edema A/P: Active problems - Computerized Problem List is the source for the followin. Exposure to potentially hazardous substance ([facility] [id number]) Entered automatically through [employer] Problem List documentation program 2. Hernia of anterior abdominal wall 3. Ischemic heart disease S/p drug eluting Sent in [facility] on 03/28/19 on Brilinta 90mg bid for one yr- no angina 4. Hypercholesterolemia- on statin 5. Benign prostatic hyperplasia- won't be seeing usologist more than every other year- asks to do PSA level here in 6 mo 6. Tinnitus 7. Hearing loss (SNOMED CT 04547699)- wearing hearing aides 8. Low back pain (SNOMED CT 690455262)- chronic- lives with- stays as active as possible. previously saw Dr. Valle- but defers epidural injections 9. Neck pain (SNOMED CT 15170669)- C2 fx with had syncope- was in a collar- stabilized and healed 10. Tension headache 11. Obesity (SNOMED CT 488194789) 12. Essential hypertension (SNOMED CT 76471058)- minimally elevated today 13. Gastroesophageal reflux disease (SNOMED CT 289154385)- taking ompeprazole 40 mg only once dialy now 14. Hiatal hernia (SNOMED CT 87518525) 15. Dysthymia (SNOMED CT 21126163) f/u in 6 mo visit type: a HIGH complexity visit where 60 minutes was spent in direct patient care, review of records and documentation. /myles/ CAMILLA ELIZABETH D.O. PHYSICIAN Signed: 04/24/2024 09:25 CAMILLA ELIZABETH [place] [facility] [place] [facility] Apr 24, 2024 08:37 AM PREVENTIVE MEDICINE NURSING NOTE: LOCAL TITLE: CLINICAL REMINDERS/NURSING STANDARD TITLE: PREVENTIVE MEDICINE NURSING NOTE DATE OF NOTE: APR 24, 2024@08:37 ENTRY DATE: APR 24, 2024@08:37:17 AUTHOR: SANDRA JALLOH EXP COSIGNER: URGENCY: STATUS: COMPLETED CLINICAL REMINDERS/NURSING Has ADDENDA PTSD Screening: PC-PTSD-5 A PTSD screening test (PC-PTSD-5) was positive (score=5). IN THE PAST MONTH, have you ever [...] situations that reminded you of the event(s)? YES 4. Been constantly on guard, watchful, or easily startled? YES 5. [place] numb or detached from people, activities, or your surroundings? YES 6. [place] guilty or unable to stop blaming yourself or others for the event(s) or any problems the event(s) may have caused? YES Licensed Independent Provider notified of positive screen and need for follow-up. Name of provider notified: Dr. Elizabeth /rafi JALLOH LPN License Practical Nurse Signed: 04/24/2024 08:39 04/24/2024 ADDENDUM STATUS: COMPLETED Follow Up Colonoscopy: Colonoscopy is due based on information available to this reminder. Patient declined screening/surveillance. Comment: refuses colonoscopy, denies any colorectal issues, fit kit given /rafi JALLOH LPN License Practical Nurse Signed: 04/24/2024 08:50 SANDRA JALLOH [facility]
--- OUTSIDE RECORDS SUMMARY | 2025-01-10 06:38 | XMS_ITS | Encounter Summary ---
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 ORGANIZAT ION (PPO) BUILD ING SERVI CE Nov 08, 2011 [id number] LIZA MAYNARD PATIENT EXPRESS SCRIPTS ([id number]) PRESCRIPT ION May 08, 2007 [id number] [phone] LIZA MAYNARD PATIENT MEDICARE (WNR) MEDICARE (M) PART B Jun 08, 2015 PART B [id number] [phone] LIZA MAYNARD PATIENT MEDICARE (WNR) MEDICARE (M) PART A Jun 08, 2015 PART A [id number] [phone] LIZA MAYNARD PATIENT MEDICARE (WNR) MEDICARE (M) PART B Jun 08, 2015 PART B [id number] [phone] LIZA MAYNARD PATIENT MEDICARE (WNR) MEDICARE (M) PART A Jun 08, 2015 PART A [id number] [phone] LIZA MAYNARD PATIENT MEDICARE (WNR) MEDICARE (M) PART B Jun 08, 2015 PART B [id number] LIZA MAYNARD PATIENT MEDICARE (WNR) MEDICARE (M) PART A Jun 08, 2015 PART A [id number] LIZA MAYNARD PATIENT Selected Encounter This section includes the information on record at [place] for the Encounter. Date/Time Encounter Type Encounter Description Reason Provider Source Feb 04, 2024 08:00 AM HEARING AID REPAIR/MODIFYIN G AUDIOLOGY ICD-10-CM Z46.1 Encounter for fitting and adjustment of hearing aid YULISSA PICHARDO Ana Encounter Template Text not used by [place] Assessments - Encounter Diagnoses This section includes the primary and secondary diagnoses documented for the Encounter. Date/Time Primary/Secondary Diagnosis Diagnosis Name Provider Source Feb 04, 2024 09:03 AM PRIMARY Encounter for fitting and adjustment of hearing aid CLOTILDE PICHARDO [facility] Feb 04, 2024 09:03 AM SECONDARY Sensorineural hearing loss, bilateral CLOTILDE PICHARDO [facility] Plan of Treatment: Future Appointments (+ 6 months) and Future Tests (+/- 45 days) The Plan of Treatment section includes future care activities for the patient from all [place] treatmentfacilities. This section includes future appointments and future orders which are active, pending or scheduled. Future Appointments This section includes appointments that were scheduled to occur 6 months from the date of the Encounter, up to a maximum of 20 appointments. The data comes from all [place] treatment facilities. Appointment Date/Time Appointment Type Appointme nt Facility Name Feb 17, 2024 08:00 AM AMBULATORY - MEDICINE [facility] March 30, 2024 08:00 AM [facility] Apr 21, 2024 08:00 AM AMBULAT[facility] Apr 24, 2024 08:30 AM [facility] [place] Social History: Smoking Status (Most current) and Tobacco Use (All prior to encounter date) This section includes the most current, and the historical, smoking and tobacco- related health factors from the [place] facility where the Encounter took place. Current Smoking Status This section includes the most current smoking, or tobacco-related health factor, from the [place] facility where the Encounter took place. Date/Time Current Smoking Status Comment Facil [facility] Oct 27, 2023 09:00 AM VA-TOBACCO QUIT 15 YRS OR MORE [facility] [place] Tobacco Use History This section includes a history of the smoking, or tobacco-related health factors, that were collected on or before the date of the Encounter. The data comes from the [place] facility where the Encounter took place. Date/Time Smoking Status/Tobac co Use Comment Facility Oct 27, 2023 09:00 AM VA-TOBACCO QUIT 15 YRS OR MORE [facility] Oct 13, 2022 09:30 AM VA-TOBACCO FORMER USER [facility] [place] Oct 13, 2022 09:30 AM VA-TOBACCO QUIT 15 YRS OR MORE [facility] [place] Sep 25, 2021 09:00 AM VA-TOBACCO FORMER USER [facility] [place] Sep 25, 2021 09:00 AM VA-TOBACCO QUIT 15 YRS OR MORE [facility] [place] May 23, 2019 08:36 AM VA-TOBACCO FORMER USER [facility] [place] May 23, 2019 08:36 AM VA-TOBACCO QUIT 15 YRS OR MORE [facility] [place] May 26, 2018 08:24 AM VA-TOBACCO NEVER USED [facility] [place] May 26, 2018 07:54 AM QUIT TOBACCO USE > 7 YEARS AGO [facility] [place] Apr 19, 2017 08:50 AM QUIT TOBACCO USE > 7 YEARS AGO [facility] Apr 15, 2016 09:36 AM QUIT TOBACCO USE > 7 YEARS AGO . [facility] March 16, 2014 02:49 PM QUIT TOBACCO USE > 7 YEARS AGO quit 40 years ago [facility] Encounter Notes: All associated encounter notes This section contains the clinical notes associated to the Encounter. Date/Time Encounter Note(s) Provider Source Feb 04, 2024 08:55 AM AUDIOLOGY E & M NO TE: [facility] TITLE: AUDIOLOGY CLINIC STANDARD TITLE: AUDIOLOGY E & M NOTE DATE OF NOTE: FEB 04, 2024@08:55 ENTRY DATE: FEB 04, 2024@08:55:41 AUTHOR: YULISSA PICHARDO COSIGNER: URGENCY: STATUS: COMPLETED AUDIOLOGY CLINIC Has ADDENDA Dx: Sensorineural hearing loss, bilateral Ulices was seen today for a hearing aid follow-up appointment. He was issued bilateral Farhad Jose Juan Edge AI MICHAEL 312 hearing aids on 04/23/21. F[place]on reports he was in the hospital recently for 5 weeks and when he went to put his hearing aids back in, his right hearing aid was not working. Initial listening check revealed the right aid was . Maintenance was performed on both hearing aids today. All debris was removed from the microphones. The receivers were suctioned and the microphone covers were replaced. The wax guards would not stay securely in the custom molds, therefore they were discarded. Batteries were replaced. Listening check post maintenance was positive for both hearing aids. reports the right earmold still will not stay in his ear securely, even after receiving the new earmold. He states the right earmold for his older Farhad BTE fits much better. expressed that he finds his older BTEs work better than his RICs. A new right MICHAEL earmold will be ordered referencing 's older BTE earmold. Once the earmold is received, it can be mailed to . He is scheduled for an updated hearing evaluation in March. Fulton will likely want to discuss switching back to BTE style hearing aids. Recommend sending his current RICs in for overhaul repair at his next fitting appointment. /es/ Paola Bunn, [facility]-A Car Repairer Apprentice Signed: 02/04/2024 09:04 02/14/2024 ADDENDUM STATUS: COMPLETED Right earmold recieved and certified, mailed to address on file today. /es/ GUILHERME GILLILAND Audiology Health Manager Skilled Signed: 02/14/2024 11:34 YULISSA PICHARDO [facility]
--- OUTSIDE RECORDS SUMMARY | 2025-01-10 06:38 | XMS_ITS ---
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 ORGANIZAT ION (PPO) BUILD ING SERVI CE Nov 08, 2011 [id number] LIZA MAYNARD PATIENT EXPRESS SCRIPTS ([id number]) PRESCRIPT ION May 08, 2007 [id number] [phone] LIZA MAYNARD PATIENT MEDICARE (WNR) MEDICARE (M) PART B Jun 08, 2015 PART B [id number] LIZA MAYNARD PATIENT MEDICARE (WNR) MEDICARE (M) PART A Jun 08, 2015 PART A [id number] LIZA MAYNARD PATIENT MEDICARE (WNR) MEDICARE (M) PART B Jun 08, 2015 PART B [id number] LIZA MAYNARD PATIENT MEDICARE (WNR) MEDICARE (M) PART A Jun 08, 2015 PART A [id number] LIZA MAYNARD PATIENT MEDICARE (WNR) MEDICARE (M) PART B Jun 08, 2015 PART B [id number] [phone] LIZA MAYNARD PATIENT MEDICARE (WNR) MEDICARE (M) PART A Jun 08, 2015 PART A [id number] [id number] [phone] LIZA MAYNARD PATIENT Selected Encounter This section includes the information on record at [place] for the Encounter. Date/Time Encounter Type Encounter Description Reason Provider Source Oct 17, 2024 08:00 AM HEARING AID REPAIR/MODIFYING AUDIOLOGY ICD-10-CM Z46.1 Encounter for fitting and adjustment of hearing aid AVA ALLEN Ana Encounter Template Text not used by [place] Assessments - Encounter Diagnoses This section includes the primary and secondary diagnoses documented for the Encounter. Date/Time Primary/Secondary Diagnosis Diagnosis Name Provider Source Oct 17, 2024 08:20 AM PRIMARY Encounter for fitting and adjustment of hearing aid ANGELES GILLILAND [facility] Oct 17, 2024 08:20 AM SECONDARY Sensorineural hearing loss, bilateral ANGELES GILLILAND [facility] Plan of Treatment: Future Appointments (+ 6 months) and Future Tests (+/- 45 days) The Plan of Treatment section includes future care activities for the patient from all [place] treatmentfacilities. This section includes future appointments and future orders which are active, pending or scheduled. Future Appointments This section includes appointments that were scheduled to occur 6 months from the date of the Encounter, up to a maximum of 20 appointments. The data comes from all [place] treatment facilities. Appointment Date/Time Appointment Type Appointme nt Facility Name Oct 24, 2024 08:00 AM AMBULATORY - MEDICINE [facility] Feb 21, 2025 07:30 AM [facility] Apr 17, 2025 08:30 AM [facility] Lab Results: +/- 30 days of the encounter This section includes the Chemistry and Hematology Lab Results on record with [place] for the patient. Radiology Reports and Pathology Reports are provided separately, in subsequent sections. Lab Results This section contains the Chemistry/Hematology Results that were resulted 30 days before or 30 daysafter the date of the Encounter. Date/Time Source Result Type Result - Unit Interpretation Reference Range Comment Oct 17, 2024 08:35 AM [facility] PSA Specimen Type: SERUM No comment entered. Ordering Provider: CAMILLA SOLIZ Report Released Date/Time: Apr 24, 2024 09:20 AM Reporting Lab: [address] [address] Performing Lab: [address] [address] PSA 2.76 ng/mL 0.00-4.00 Social History: Smoking Status (Most current) and Tobacco Use (All prior to encounter date) This section includes the most current, and the historical, smoking and tobacco- related health factors from the [place] facility where the Encounter took place. Current Smoking Status This section includes the most current smoking, or tobacco-related health factor, from the [place] facility where the Encounter took place. Date/Time Current Smoking Status Comment Steffi golden Oct 27, 2023 09:00 AM VA-TOBACCO FORMER USER [facility] Tobacco Use History This section includes a history of the smoking, or tobacco-related health factors, that were collected on or before the date of the Encounter. The data comes from the [place] facility where the Encounter took place. Date/Time Smoking Status/Tobac co Use Comment Facility Oct 27, 2023 09:00 AM AL-TOBACCO QUIT 15 YRS OR MORE [facility] Oct 13, 2022 09:30 AM VA-TOBACCO FORMER USER [facility] Oct 13, 2022 09:30 AM VA-TOBACCO QUIT 15 YRS OR MORE [facility] [place] [facility] Sep 25, 2021 09:00 AM VA-TOBACCO FORMER USER [facility] [place] [facility] Sep 25, 2021 09:00 AM VA-TOBACCO QUIT 15 YRS OR MORE [facility] [place] [facility] May 23, 2019 08:36 AM VA-TOBACCO FORMER USER [facility] [place] [facility] May 23, 2019 08:36 AM VA-TOBACCO QUIT 15 YRS OR MORE [facility] [place] [facility] May 26, 2018 08:24 AM VA-TOBACCO NEVER USED [facility] [place] [facility] May 26, 2018 07:54 AM QUIT TOBACCO USE > 7 YEARS AGO [facility] [place] [facility] Apr 19, 2017 08:50 AM QUIT TOBACCO USE > 7 YEARS AGO [facility] [place] [facility] Apr 15, 2016 09:36 AM QUIT TOBACCO USE > 7 YEARS AGO . [facility] [place] [facility] March 16, 2014 02:49 PM QUIT TOBACCO USE > 7 YEARS AGO [facility] Encounter Notes: All associated encounter notes This section contains the clinical notes associated to the Encounter. Date/Time Encounter Note(s) Provider Source Oct 17, 2024 07:47 AM AUDIOLOGY NOTE: LOCAL TITLE: AUDIOLOGY HEALTH INFUSION THERAPY NURSE STANDARD TITLE: AUDIOLOGY NOTE DATE OF NOTE: OCT 17, 2024@07:47 ENTRY DATE: OCT 17, 2024@07:47:11 AUTHOR: GUILHERME GILLILAND COSIGNER: AVA ALLEN URGENCY: STATUS: COMPLETED October 17, 2024 History/Background: Mona was seen for a hearing aid follow up, unaccompanied. The Mona presented today for routine maintenance on his hearing aids. Hearing aids: Farhad EVOLV AI BTEs Serial Numbers: [id number] Battery size: Rechargeable Date Issued: 04/21/2024 Hearing aid check: Both hearing aids were cleaned and checked. Replaced size 4 thin tubes and yumiko covers. Biologic check was good. Plan: The Mona was scheduled for routine maintenance on 04/17/2025 @ 0830. RTC order entered. Suicide Screen: C-SSRS Screening [place]-Suicide Severity Rating Scale (C-SSRS Screener) 1. Over [...] other questions. /myles/ GUILHERME GILLILAND Audiology Health Continuous Improvement Analyst Signed: 10/17/2024 08:21 /myles/ AVA Guo CCC-A CHIEF, AUDIOLOGY/COORDINATE MEASURING MACHINE PROGRAMMER Cosigned: 10/17/2024 08:50 Receipt Acknowledged By: 10/17/2024 09:33 /myles/ MANUEL FENG SUPERVISORY HYDRO PLANT TECHNICIAN GUILHERME GILLILAND [facility]
--- OUTSIDE RECORDS SUMMARY | 2025-01-10 06:39 | XMS_ITS | Continuity of Care Document ---
Author Name [facility] Organization [facility] Care Team Providers Care Children Librarian Name Role Phone [facility] Unavailable Unavailable Problems Combined list of problems from Department of Defense and Veterans Affairs facilities. It does not include entries that were removed or entered in error. Problem Status Onset Date Problem Type Date of Resolution Comments Source Benign prostatic hyperplasia Active Condition [facility] Essential hypertension (SNOMED CT 31304322) Active Condition [facility] Exposure to potentially hazardous substance ([facility] [id number]) Active Condition Feb 15 Entered By: SHAHRAM KNOX Comment: Entered automatically through [employer] Problem List documentation program [facility] Gastroesophageal reflux disease (SNOMED CT 528786485) Active Condition [facility] Hearing loss (SNOMED CT 15550882) Active Condition [facility] Hypercholesterolemia Active Condition Oct 24, 2024 Entered By: CAMILLA SOLIZ Comment: able to tolerate low dose atorvastatin 20 mg every other day [facility] Ischemic heart disease Active Condition May 23, 2019 Entered By: KEV SHAY Comment: S/p drug eluting Sent in [facility] on 03/28/19 [facility] Low back pain (SNOMED CT 069514881) Active Condition Oct 24, 2024 Entered By: CAMILLA SOLIZ Comment: chronic in nature, uses tramadol sparingly only 1-2 times per year with flare up [facility] Neck pain (SNOMED CT 28216437) Active Condition [facility]innitus Active Condition [facility] Knee pain (SNOMED CT 13098991) Inactive Condition 05/26/2018 [facility] Diagnosis: ICD-10-CM Z77.29 Contact with and exposure to other hazardous substances Active Diagnosis [facility] Diagnosis: ICD-10-CM Z46.1 Encounter for fitting and adjustment of hearing aid Active Diagnosis [facility] Diagnosis: ICD-10-CM I24.9 Acute ischemic heart disease, unspecified Active Diagnosis [facility] Diagnosis: ICD-10-CM H90.3 Sensorineural hearing loss, bilateral Active Diagnosis [facility] Diagnosis: ICD-10-CM Z46.0 Encounter for fit/adjst of spectacles and contact lenses Active Diagnosis [facility] Diagnosis: ICD-10-CM H40.013 Open angle with borderline findings, low risk, bilateral Active Diagnosis [facility] Diagnosis: ICD-10-CM H93.13 Tinnitus, bilateral Active Diagnosis [facility] Medications Combined list of outpatient medications from Department of Defense and Veterans Affairs facilities.Medications provided include 1) outpatient medications from the last 15 months, and 2) patient-reported medications. Medication Details Route Status Patient Instructions Prescription Expires Prescription Number Last Dispense Date Ordering Provider Order Date Order Qty Source ACETAMINOPH EN 325MG TAB TAKE TWO TABLETS BY MOUTH EVERY 6 HOURS ORAL ACTIVE MARIA DOLORES SHAY AMMED JAWED 2016 [facility] AMLODIPINE BESYLATE 5MG TAB TAKE ONE TABLET BY MOUTH ONCE DAILY ORAL ACTIVE AHMARIA DOLORES [place] AMMED JAWED 2018 [facility] ASPIRIN 81MG TAB,EC TAKE ONE TABLET BY MOUTH EVERY DAY ORAL ACTIVE AHMARIA DOLORES [place] AMMED JAWED 2016 [facility] ATORVASTATI N CA 40MG TAB TAKE ONE-HALF TABLET BY MOUTH EVERY OTHER DAY ORAL ACTIVE FURCOLO,T HECTOR 2021 [facility] CARBOXYMETH YLCELLULOSE NA 0.5% SOLN,OPH INSTILL 1 DROP INTO EACH EYE FOUR TIMES DAILY NEEDED FOR DRY EYE OPHTHA LMIC ACTIVE 02/17/2025 [id number] 12/08/202 4 MERHAR,NO AH B 2023 45 [facility] CHOLECALCIF NORBERTO 25MCG (1,000UNIT) TAB TAKE ONE TABLET BY MOUTH EVERY DAY [facility] 2016 [facility] CYANOCOBALA MIN TAB TAKE 3000MG BY MOUTH EVERY DAY [facility]AL [facility]IVE [facility] 2016 [facility] GLUCOSAMINE /CHONDROITI N CAP/TAB TAKE ONE BY MOUTH EVERY DAY [facility] 2016 [facility] LIDOCAINE 5% PATCH APPLY 1 PATCH TOPICALL Y ONCE DAILY FOR NERVE PAIN (LEAVE PATCH ON FOR 12 HOURS, THEN REMOVE PATCH) TOPICA L 04/22/2024 [id number] [facility] 2022 30 [facility] LOSARTAN POTASSIUM 100MG TAB TAKE ONE TABLET BY MOUTH ONCE DAILY ORAL ACTIVE [facility] MAGNESIUM OXIDE 420MG TAB TAKE ONE TABLET BY MOUTH EVERY DAY ORAL ACTIVE [facility] J[facility] 2016 [facility] METOPROLOL TARTRATE 25MG TAB TAKE ONE TABLET BY MOUTH TWICE DAILY ORAL ACTIVE [facility] OMEPRAZOLE 20MG CAP,EC TAKE 2 CAPSULES BY MOUTH EVERY MORNING 30 MINUTES BEFORE BREAKFAS T ORAL ACTIVE [facility] 2016 [facility] TRAMADOL HCL 50MG TAB TAKE ONE TABLET BY MOUTH EVERY 6 HOURS NEEDED ORAL ACTIVE [facility] J[facility] 2019 [facility] Allergies, Adverse Reactions, Alerts Combined list of allergies from Department of Defense and Veterans Affairs facilities. It does not include entries that were removed or entered in error. Substance Category Reaction Severity Reaction type Status Date Reported Comments Source PRAVASTATIN Propensity to adverse reactions to drug (finding) Muscle pain active 7 [facility] ZETIA Propensity to adverse reactions to drug (finding) Sedated active 7 [facility] Immunizations Combined list of available immunizations from the Department of Defense and Veterans Affairs facilities. Immunization Series Date Given Administered By Site Reaction Lot Number CVX Code Drug Sleep Technologist Status Comments Source INFLUENZA, UNSPECIFIED FORMULATION 2023 88 complet ed [facility] TD(ADULT) UNSPECIFIED FORMULATION 2023 139 complet ed [facility] INFLUENZA, UNSPECIFIED FORMULATION 2022 88 complet ed [facility] COVID-19 (MODERNA), MRNA, LNP-S, BIVALENT BOOSTER, PF, 50 MCG/0.5 ML OR 25MCG/0.25 ML DOSE 5 2021 229 complet ed Lot#: [id number] Mfr: [employer]NA [employer] Expiratio n Date: 04/21/23 [facility] INFLUENZA, UNSPECIFIED FORMULATION 2021 88 complet ed [facility] COVID-19 (MODERNA), MRNA, LNP-S, PF, 100 MCG/0.5ML DOSE OR 50 MCG/0.25ML DOSE 3 2021 207 complet ed [facility] COVID-19 (MODERNA), MRNA, LNP-S, PF, 100 MCG/0.5ML DOSE OR 50 MCG/0.25ML DOSE 3 2020 207 complet ed [facility] INFLUENZA, UNSPECIFIED FORMULATION 2020 88 complet ed [facility] COVID-19 (MODERNA), MRNA, LNP-S, PF, 100 MCG/0.5ML DOSE OR 50 MCG/0.25ML DOSE 2 2020 207 complet ed [facility] COVID-19 (MODERNA), MRNA, LNP-S, PF, 100 MCG/0.5ML DOSE OR 50 MCG/0.25ML DOSE 1 2020 207 complet ed [facility] INFLUENZA, INJECTABLE, QUADRIVALENT, PRESERVATIVE FREE 2019 150 complet ed [facility] ZOSTER RECOMBINANT 2 2019 187 complet ed [facility] ZOSTER RECOMBINANT 1 2019 187 complet ed [facility] PNEUMOCOCCAL POLYSACCHARID E PPV23 2017 33 complet ed [facility] PNEUMOCOCCAL CONJUGATE PCV 13 2015 133 complet ed reports as having prevnar 13 through Jackelin mancini on [facility]. [facility] FLU,3 YRS (HISTORICAL) 2015 88 complet ed [facility] PNEUMOCOCCAL POLYSACCHARID E PPV23 2013 33 complet ed [facility] DTAP, UNSPECIFIED FORMULATION 2012 107 complet ed [facility] FLU,3 YRS (HISTORICAL) 2012 88 complet ed [facility] ZOSTER (HISTORICAL) 2011 121 complet ed [facility] Results Combined list of recent chemistry, hematology and other laboratory results from Department of Defense and Veterans Affairs, ranging from 15 months to all on record, depending upon the facility. Order Name Results Value Reference Range Date Interpretation Specimen Comments Source PSA PROSTATE SPECIFIC AG [MASS/VOLU ME] IN SERUM OR PLASMA 2.76 ng/mL 0.00 - 4.00 10/17 Specimen Type: SERUM No comment entered. Ordering Provider: ANA SOLIZ Report Released Date/Time: Apr 24, 2024 09:20 AM Reporting Lab: [facility] [place] [facility] [address] [facility] [address] Performing Lab: [facility] [place] [facility] [address] [facility] [address] [facility] OCCULT BLOOD FIT X1 SCREEN(I N-HOUSE) HEMOGLOBIN .GASTROINT ESTINAL.LO WER [PRESENCE] IN STOOL BY IMMUNOASSA Y Negative 04/28 Specimen Type: FECES No comment entered. Ordering Provider: ANA SOLIZ Report Released Date/Time: Apr 24, 2024 08:48 AM Reporting Lab: [facility] [address] [address] Performing Lab: [address] [address] [facility] BASIC METABOLI C PANEL (fasting ) UREA NITROGEN [MASS/VOLU ME] IN SERUM OR PLASMA 12 mg/dL 7 - 25 04/18 Specimen Type: SERUM No comment entered. Ordering Provider: ANA SOLIZ Report Released Date/Time: Apr 11, 2024 11:41 AM Reporting Lab: [address] [address] Performing Lab: [address] [address] [facility] BASIC METABOLI C PANEL (fasting ) GLUCOSE [MASS/VOLU ME] IN SERUM OR PLASMA 100 mg/dL 65 - 100 04/18 Specimen Type: SERUM No comment entered. Ordering Provider: ANA SOLIZ Report Released Date/Time: Apr 11, 2024 11:41 AM Reporting Lab: [address] [address] Performing Lab: [facility] [address] [facility] BASIC METABOLI C PANEL (fasting ) SODIUM [MOLES/VOL UME] IN SERUM OR PLASMA 141 mmol/L 135 - 145 04/18 Specimen Type: SERUM No comment entered. Ordering Provider: ANA SOLIZ Report Released Date/Time: Apr 11, 2024 11:41 AM Reporting Lab: [address] [address] Performing Lab: [address] [place] [address] [facility]TRN [place] [facility] BASIC METABOLI C PANEL (fasting ) POTASSIUM [MOLES/VOL UME] IN SERUM OR PLASMA 4.2 mmol/L 3.5 - 5.0 04/18 Specimen Type: SERUM No comment entered. Ordering Provider: ANA SOLIZ Report Released Date/Time: Apr 11, 2024 11:41 AM Reporting Lab: [facility] [address] [address] Performing Lab: [facility] [address] [facility]ITALRUNITED [facility]PITALN [facility]ITALUSE [facility] BASIC METABOLI C PANEL (fasting ) CHLORIDE [MOLES/VOL UME] IN SERUM OR PLASMA 106 mmol/L 100 - 110 04/18 Specimen Type: SERUM No comment entered. Ordering Provider: ANA SOLIZ Report Released Date/Time: Apr 11, 2024 11:41 AM Reporting Lab: [facility]ITALRL TRN [facility] [address] Performing Lab: [facility] [address] [facility]ITALRHIGHLAND[facility] CENTERTRN [facility]ITALUSE [facility] BASIC METABOLI C PANEL (fasting ) CARBON DIOXIDE, TOTAL [MOLES/VOL UME] IN SERUM OR PLASMA 25 meq/L 20 - 30 04/18 Specimen Type: SERUM No comment entered. Ordering Provider: ANA SOLIZ Report Released Date/Time: Apr 11, 2024 11:41 AM Reporting Lab: [facility] [address] [address] Performing Lab: [facility] [address] [facility]ITALRUNITED [facility] MARINE HOSPITALN [facility] BASIC METABOLI C PANEL (fasting ) CREATININE [MASS/VOLU ME] IN SERUM OR PLASMA 0.88 mg/dL 0.50 - 1.40 04/18 Specimen Type: SERUM No comment entered. Ordering Provider: ANA SOLIZ Report Released Date/Time: Apr 11, 2024 11:41 AM Reporting Lab: [facility] [place] [facility] [address] [address] Performing Lab: [facility] [place] [facility] [address] [address] [facility] [place] [facility] BASIC METABOLI C PANEL (fasting ) GLOMERULAR FILTRATION RATE/1.73 SQ M.PREDICTE D [VOLUME RATE/AREA] IN SERUM, PLASMA OR BLOOD BY CREATININE -BASED FORMULA (CKD-EPI 2020) 90 mL/min 60 04/18 Specimen Type: SERUM No comment entered. Ordering Provider: ANA SOLIZ Report Released Date/Time: Apr 11, 2024 11:41 AM Reporting Lab: [place] [facility] [place] [facility] [address] [address] Performing Lab: [place] [facility] [place] [facility] [address] [address] [facility] [place] [facility] LIVER FUNCTION PROTEIN [MASS/VOLU ME] IN SERUM OR PLASMA 7.0 g/dL 6.0 - 8.3 04/18 Specimen Type: SERUM No comment entered. Ordering Provider: ANA SOLIZ Report Released Date/Time: Apr 11, 2024 11:41 AM Reporting Lab: [facility] [place] [facility] [address] [address] Performing Lab: [facility] [place] [facility] [address] [address] [facility] [place] [facility] LIVER FUNCTION ALBUMIN [MASS/VOLU ME] IN SERUM OR PLASMA 4.0 g/dL 3.5 - 5.0 04/18 Specimen Type: SERUM No comment entered. Ordering Provider: ANA SOLIZ Report Released Date/Time: Apr 11, 2024 11:41 AM Reporting Lab: [facility] [place] [facility] [address] [address] Performing Lab: [facility] [place] [facility] [address] [address] [place] [facility] [place] [facility] LIVER FUNCTION ALKALINE PHOSPHATAS E [ENZYMATIC ACTIVITY/V OLUME] IN SERUM OR PLASMA 83 U/L 40 - 150 04/18 Specimen Type: SERUM No comment entered. Ordering Provider: ANA SOLIZ Report Released Date/Time: Apr 11, 2024 11:41 AM Reporting Lab: [facility] [place] [facility] [address] [facility] [address] Performing Lab: [facility] [place] [facility] [address] [facility] [address] [facility] [place] [facility] LIVER FUNCTION ASPARTATE AMINOTRANS FERASE [ENZYMATIC ACTIVITY/V OLUME] IN SERUM OR PLASMA 24 U/L 5 - 34 04/18 Specimen Type: SERUM No comment entered. Ordering Provider: ANA SOLIZ Report Released Date/Time: Apr 11, 2024 11:41 AM Reporting Lab: [facility] [place] [facility] [address] [facility] [address] Performing Lab: [place] [facility] [place] [address] [address] [facility]ITALRL W[facility]N [facility]ITALUSE [facility] LIVER FUNCTION ALANINE AMINOTRANS FERASE [ENZYMATIC ACTIVITY/V OLUME] IN SERUM OR PLASMA 22 U/L 04/18 Specimen Type: SERUM No comment entered. Ordering Provider: ANA SOLIZ Report Released Date/Time: Apr 11, 2024 11:41 AM Reporting Lab: [facility] [place] [address] [address] Performing Lab: [facility] [place] [address] [address] [facility]ITALRL WSTRN [facility]ITALCHUSE [facility] LIVER FUNCTION BILIRUBIN. TOTAL [MASS/VOLU ME] IN SERUM OR PLASMA 1.5 mg/dL 0.2 - 1.2 04/18 H Specimen Type: SERUM No comment entered. Ordering Provider: ANA SOLIZ Report Released Date/Time: Apr 11, 2024 11:41 AM Reporting Lab: [facility] [place] [facility] [address] [facility] [address] Performing Lab: [facility] [place] [address] [address] [facility]RL [facility] LIVER FUNCTION BILIRUBIN. DIRECT [MASS/VOLU ME] IN SERUM OR PLASMA 0.5 mg/dL 0 - 0.5 04/18 Specimen Type: SERUM No comment entered. Ordering Provider: ANA SOLIZ Report Released Date/Time: Apr 11, 2024 11:41 AM Reporting Lab: [facility]ITALRHIGHLANDS MEDICAL CENTERTRN [facility]PITALUSETS [facility] [address] [facility] [address] Performing Lab: [facility]ITALRL W[facility]N [facility] [address] [facility]PITALRHIGHLANDS MEDICAL CENTERTRN [facility]USE [facility] LIPID PANEL FASTING CHOLESTERO L [MASS/VOLU ME] IN SERUM OR PLASMA 141 mg/dL 04/18 Specimen Type: SERUM No comment entered. Ordering Provider: ANA SOLIZ Report Released Date/Time: Apr 11, 2024 11:41 AM Reporting Lab: [facility]ITALRHIGHLANDS MEDICAL CENTERTRN [facility] [address] Performing Lab: [facility]PITALRHIGHLANDS MEDICAL CENTERTRN [facility]USE[address] [address] [facility] LIPID PANEL FASTING TRIGLYCERI DE [MASS/VOLU ME] IN SERUM OR PLASMA 159 mg/dL 0 - 150 04/18 H Specimen Type: SERUM No comment entered. Ordering Provider: ANA SOLIZ Report Released Date/Time: Apr 11, 2024 11:41 AM Reporting Lab: [facility]ITALRHIGHLANDS MEDICAL CENTERTRN [facility]USE[address] [address] Performing Lab: [facility]ITALRL WSTRN [facility]OSPITALUSETS [address] [address] [facility]ITALRHIGHLAND[facility] MEDICAL CENTERTRN [facility]USE [facility] LIPID PANEL FASTING CHOLESTERO L IN LDL [MASS/VOLU ME] IN SERUM OR PLASMA BY CALCULAEVANO N 64 mg/dL 0 - 129 04/18 Specimen Type: SERUM No comment entered. Ordering Provider: ANA SOLIZ Report Released Date/Time: Apr 11, 2024 11:41 AM Reporting Lab: [facility]ITALRHIGHLANDS MEDICAL CENTERTRN [facility]ITALUSE[address] [address] Performing Lab: [facility]OSPITALRL WSTRN [place] [place] [address] [facility] [place] [facility] LIPID PANEL FASTING CHOLESTERO L.TOTAL/CH OLESTEROL IN HDL [MASS RATIO] IN SERUM OR PLASMA 3.1 04/18 Specimen Type: SERUM No comment entered. Ordering Provider: ANA SOLIZ Report Released Date/Time: Apr 11, 2024 11:41 AM Reporting Lab: [facility] [place] [facility] [address] [facility] [address] Performing Lab: [facility] [place] [facility] [address] [facility] [address] [facility] [place] [facility] LIPID PANEL FASTING CHOLESTERO L IN HDL [MASS/VOLU ME] IN SERUM OR PLASMA 45 mg/dL 40 - 60 04/18 Specimen Type: SERUM No comment entered. Ordering Provider: ANA SOLIZ Report Released Date/Time: Apr 11, 2024 11:41 AM Reporting Lab: [facility] [place] [address] [address] Performing Lab: [facility] [place] [address] [address] [place] [facility] [place] [facility] LIVER FUNCTION PROTEIN [MASS/VOLU ME] IN SERUM OR PLASMA 7.3 g/dL 6.0 - 8.3 10/19 Specimen Type: SERUM No comment entered. Ordering Provider: MIKAELA SHAY Report Released Date/Time: Oct 08, 2023 11:59 AM Reporting Lab: [facility] [place] [facility] [address] [address] Performing Lab: [facility] [place] [address] [address] [facility] [place] [facility] LIVER FUNCTION ALBUMIN [MASS/VOLU ME] IN SERUM OR PLASMA 4.1 g/dL 3.5 - 5.0 10/19 Specimen Type: SERUM No comment entered. Ordering Provider: MIKAELA SHAY Report Released Date/Time: Oct 08, 2023 11:59 AM Reporting Lab: [facility] [place] [address] [place] [address] Performing Lab: [facility] [place] [facility] [address] [address] [facility] [place] [facility] LIVER FUNCTION ALKALINE PHOSPHATAS E [ENZYMATIC ACTIVITY/V OLUME] IN SERUM OR PLASMA 107 U/L 40 - 150 10/19 Specimen Type: SERUM No comment entered. Ordering Provider: MIKAELA SHAY Report Released Date/Time: Oct 08, 2023 11:59 AM Reporting Lab: [facility] [place] [facility] [address] [facility] [address] Performing Lab: [facility] [place] [facility] [address] [facility] [address] [place] [facility] [place] [facility] LIVER FUNCTION ASPARTATE AMINOTRANS FERASE [ENZYMATIC ACTIVITY/V OLUME] IN SERUM OR PLASMA 31 U/L 5 - 34 10/19 Specimen Type: SERUM No comment entered. Ordering Provider: MIKAELA SHAY Report Released Date/Time: Oct 08, 2023 11:59 AM Reporting Lab: [facility] [place] [facility] [address] [facility] [address] Performing Lab: [facility] [place] [facility] [address] [facility] [address] [facility] [place] [facility] LIVER FUNCTION ALANINE AMINOTRANS FERASE [ENZYMATIC ACTIVITY/V OLUME] IN SERUM OR PLASMA 56 U/L 10/19 H Specimen Type: SERUM No comment entered. Ordering Provider: MIKAELA SHAY Report Released Date/Time: Oct 08, 2023 11:59 AM Reporting Lab: [facility] [place] [facility] [address] [facility] [address] Performing Lab: [facility] [place] [facility] [address] [facility] [facility] [address] [facility] [place] [facility] LIVER FUNCTION BILIRUBIN. TOTAL [MASS/VOLU ME] IN SERUM OR PLASMA 1.1 mg/dL 0.2 - 1.2 10/19 Specimen Type: SERUM No comment entered. Ordering Provider: MIKAELA SHAY Report Released Date/Time: Oct 08, 2023 11:59 AM Reporting Lab: [facility] [place] [facility] [address] [facility] [address] Performing Lab: [facility] [place] [facility] [address] [facility] [facility] [address] [facility] [place] [facility] BASIC METABOLI C PANEL (fasting ) UREA NITROGEN [MASS/VOLU ME] IN SERUM OR PLASMA 9 mg/dL 7 - 25 10/19 Specimen Type: SERUM No comment entered. Ordering Provider: MIKAELA SHAYSynchronized Report Released Date/Time: Oct 08, 2023 11:59 AM Reporting Lab: [facility] [place] [facility] [address] [facility] [address] Performing Lab: [facility] [place] [facility] [address] [facility] [facility] [address] [facility] [place] [facility] BASIC METABOLI C PANEL (fasting ) GLUCOSE [MASS/VOLU ME] IN SERUM OR PLASMA 111 mg/dL 65 - 100 10/19 H Specimen Type: SERUM No comment entered. Ordering Provider: MIKAELA SHAY Report Released Date/Time: Oct 08, 2023 11:59 AM Reporting Lab: [facility] [place] [facility] [address] [facility] [address] Performing Lab: [facility] [place] [facility] [address] [facility] [address] [facility] [place] [facility] BASIC METABOLI C PANEL (fasting ) SODIUM [MOLES/VOL UME] IN SERUM OR PLASMA 140 mmol/L 135 - 145 10/19 Specimen Type: SERUM No comment entered. Ordering Provider: MIKAELA SHAY Report Released Date/Time: Oct 08, 2023 11:59 AM Reporting Lab: [facility] [place] [facility] [address] [facility] [facility] [address] Performing Lab: [facility] [place] [facility] [address] [facility] [facility] [address] [facility] [place] [facility] BASIC METABOLI C PANEL (fasting ) POTASSIUM [MOLES/VOL UME] IN SERUM OR PLASMA 4.8 mmol/L 3.5 - 5.0 10/19 Specimen Type: SERUM No comment entered. Ordering Provider: MIKAELA SHAY Report Released Date/Time: Oct 08, 2023 11:59 AM Reporting Lab: [facility] [place] [address] [address] Performing Lab: [facility] [address] [address] [facility] [place] [facility] BASIC METABOLI C PANEL (fasting ) CHLORIDE [MOLES/VOL UME] IN SERUM OR PLASMA 106 mmol/L 100 - 110 10/19 Specimen Type: SERUM No comment entered. Ordering Provider: MIKAELA SHAY Report Released Date/Time: Oct 08, 2023 11:59 AM Reporting Lab: [facility] [place] [address] [address] Performing Lab: [facility] [place] [address] [address] [facility] BASIC METABOLI C PANEL (fasting ) CARBON DIOXIDE, TOTAL [MOLES/VOL UME] IN SERUM OR PLASMA 27 meq/L 20 - 30 10/19 Specimen Type: SERUM No comment entered. Ordering Provider: MIKAELA SHAY Report Released Date/Time: Oct 08, 2023 11:59 AM Reporting Lab: [facility] [place] [address] [address] Performing Lab: [facility] [place] [address] [address] [facility] [place] [facility] BASIC METABOLI C PANEL (fasting ) CREATININE [MASS/VOLU ME] IN SERUM OR PLASMA 0.83 mg/dL 0.50 - 1.40 10/19 Specimen Type: SERUM No comment entered. Ordering Provider: MIKAELA SHAY Report Released Date/Time: Oct 08, 2023 11:59 AM Reporting Lab: [facility] [place] [address] [address] Performing Lab: [facility] [place] [facility] [address] [facility] [address] [facility] [place] [facility] BASIC METABOLI C PANEL (fasting ) GLOMERULAR FILTRATION RATE/1.73 SQ M.PREDICTE D [VOLUME RATE/AREA] IN SERUM, PLASMA OR BLOOD BY CREATININE -BASED FORMULA (CKD-EPI 2020) >90mL/mi n 60 10/19 Specimen Type: SERUM No comment entered. Ordering Provider: MIKAELA SHAY Report Released Date/Time: Oct 08, 2023 11:59 AM Reporting Lab: [facility] [place] [facility] [address] [facility] [address] Performing Lab: [facility] [place] [facility] [address] [facility] [address] [facility] [place] [facility] LIPID PANEL FASTING CHOLESTERO L [MASS/VOLU ME] IN SERUM OR PLASMA 152 mg/dL 10/19 Specimen Type: SERUM No comment entered. Ordering Provider: MIKAELA SHAY Report Released Date/Time: Oct 08, 2023 11:59 AM Reporting Lab: [facility] [place] [address] [address] Performing Lab: [facility] [place] [facility] [address] [facility] [facility] [address] [facility] [place] [facility] LIPID PANEL FASTING TRIGLYCERI DE [MASS/VOLU ME] IN SERUM OR PLASMA 195 mg/dL 0 - 150 10/19 H Specimen Type: SERUM No comment entered. Ordering Provider: MIKAELA SHAY Report Released Date/Time: Oct 08, 2023 11:59 AM Reporting Lab: [facility] [place] [facility] [address] [facility] [address] Performing Lab: [facility] [place] [facility] [address] [facility] [address] [facility] [place] [facility] LIPID PANEL FASTING CHOLESTERO L IN LDL [MASS/VOLU ME] IN SERUM OR PLASMA BY CALCULATIO N 73 mg/dL 0 - 129 10/19 Specimen Type: SERUM No comment entered. Ordering Provider: MIKAELA SHAY Report Released Date/Time: Oct 08, 2023 11:59 AM Reporting Lab: [facility] [place] [facility] [address] [facility] [facility] [address] Performing Lab: [facility] [place] [facility] [address] [facility] [facility] [address] [facility] [place] [facility] LIPID PANEL FASTING CHOLESTERO L.TOTAL/CH OLESTEROL IN HDL [MASS RATIO] IN SERUM OR PLASMA 3.8 10/19 Specimen Type: SERUM No comment entered. Ordering Provider: MIKAELA SHAY Report Released Date/Time: Oct 08, 2023 11:59 AM Reporting Lab: [facility] [place] [facility] [address] [facility] [address] Performing Lab: [facility] [place] [facility] [address] [facility] [address] [facility] [place] [facility] LIPID PANEL FASTING CHOLESTERO L IN HDL [MASS/VOLU ME] IN SERUM OR PLASMA 40 mg/dL 40 - 60 10/19 Specimen Type: SERUM No comment entered. Ordering Provider: MIKAELA SHAY Report Released Date/Time: Oct 08, 2023 11:59 AM Reporting Lab: [facility] [place] [facility] [address] [facility] [address] Performing Lab: [facility] [place] [facility] [address] [facility] [address] [facility] [place] [facility] CBC AND DIFF (AUTO) LEUKOCYTES [#/VOLUME] IN BLOOD BY AUTOMATED COUNT 5.60 10*3/uL 4.50 - 11.00 10/19 Specimen Type: BLOOD No comment entered. Ordering Provider: MIKAELA SHAY Report Released Date/Time: Oct 08, 2023 11:59 AM Reporting Lab: [facility] [place] [facility] [address] [facility] [facility] [address] Performing Lab: [facility] [place] [facility] [address] [facility] [address] [facility] [place] [facility] CBC AND DIFF (AUTO) ERYTHROCYT ES [#/VOLUME] IN BLOOD BY AUTOMATED COUNT 4.68 10*6/uL 4.23 - 5.66 10/19 Specimen Type: BLOOD No comment entered. Ordering Provider: MIKAELA SHAY Report Released Date/Time: Oct 08, 2023 11:59 AM Reporting Lab: [facility] [place] [facility] [address] [facility] [address] Performing Lab: [facility] [place] [facility] [address] [facility] [facility] [address] [facility] [place] [facility] CBC AND DIFF (AUTO) HEMOGLOBIN [MASS/VOLU ME] IN BLOOD 15.3 g/dL 12.8 - 17 10/19 Specimen Type: BLOOD No comment entered. Ordering Provider: MIKAELA SHAY Report Released Date/Time: Oct 08, 2023 11:59 AM Reporting Lab: [facility] [place] [facility] [address] [facility] [address] Performing Lab: [facility] [place] [facility] [address] [facility] [address] [facility] [place] [facility] CBC AND DIFF (AUTO) HEMATOCRIT [VOLUME FRACTION] OF BLOOD BY AUTOMATED COUNT 45.1 39.2 - 50.4 10/19 Specimen Type: BLOOD No comment entered. Ordering Provider: MIKAELA SHAY Report Released Date/Time: Oct 08, 2023 11:59 AM Reporting Lab: [facility] [place] [facility] [address] [facility] [address] Performing Lab: [facility] [place] [facility] [address] [facility] [address] [facility] [place] [facility] CBC AND DIFF (AUTO) MCV [ENTITIC VOLUME] BY AUTOMATED COUNT 96.4 fL 82 - 99 10/19 Specimen Type: BLOOD No comment entered. Ordering Provider: MIKAELA SHAY Report Released Date/Time: Oct 08, 2023 11:59 AM Reporting Lab: [facility] [place] [facility] [address] [facility] [address] Performing Lab: [facility] [place] [facility] [address] [facility] [address] [facility] [place] [facility] CBC AND DIFF (AUTO) MCHC [MASS/VOLU ME] BY AUTOMATED COUNT 33.9 g/dL 30.8 - 35.1 10/19 Specimen Type: BLOOD No comment entered. Ordering Provider: MIKAELA SHAY Report Released Date/Time: Oct 08, 2023 11:59 AM Reporting Lab: [facility] [place] [facility] [address] [facility] [facility] [address] Performing Lab: [facility] [place] [facility] [address] [facility] [address] [facility] [place] [facility] CBC AND DIFF (AUTO) PLATELETS [#/VOLUME] IN BLOOD BY AUTOMATED COUNT 234 10*3/uL 140 - 360 10/19 Specimen Type: BLOOD No comment entered. Ordering Provider: MIKAELA SHAY Report Released Date/Time: Oct 08, 2023 11:59 AM Reporting Lab: [facility] [place] [facility] [address] [facility] [facility] [address] Performing Lab: [facility] [place] [facility] [address] [facility] [address] [facility] [place] [facility] CBC AND DIFF (AUTO) ERYTHROCYT E DISTRIBUTI ON WIDTH [RATIO] BY AUTOMATED COUNT 12.9 12.0 - 16.0 10/19 Specimen Type: BLOOD No comment entered. Ordering Provider: MIKAELA SHAY Report Released Date/Time: Oct 08, 2023 11:59 AM Reporting Lab: [facility] [place] [facility] [address] [facility] [facility] [address] Performing Lab: [facility] [place] [facility] [address] [facility] [address] [facility] [place] [facility] CBC AND DIFF (AUTO) MONOCYTES [#/VOLUME] IN BLOOD BY AUTOMATED COUNT 0.49 10*3/uL 0.30 - 1.10 10/19 Specimen Type: BLOOD No comment entered. Ordering Provider: MIKAELA SHAY Report Released Date/Time: Oct 08, 2023 11:59 AM Reporting Lab: [facility] [place] [facility] [address] [facility] [address] Performing Lab: [facility] [place] [facility] [address] [facility] [address] [facility] [place] [facility] CBC AND DIFF (AUTO) MCH [ENTITIC MASS] BY AUTOMATED COUNT 32.7 pg 26.2 - 32.6 10/19 H Specimen Type: BLOOD No comment entered. Ordering Provider: MIKAELA SHAY Report Released Date/Time: Oct 08, 2023 11:59 AM Reporting Lab: [facility] [place] [facility] [address] [facility] [facility] [address] Performing Lab: [facility] [place] [facility] [address] [facility] [address] [facility] [place] [facility] CBC AND DIFF (AUTO) NEUTROPHIL S/100 LEUKOCYTES IN BLOOD BY AUTOMATED COUNT 63.0 43.7 - 75.8 10/19 Specimen Type: BLOOD No comment entered. Ordering Provider: MIKAELA SHAY Report Released Date/Time: Oct 08, 2023 11:59 AM Reporting Lab: [facility] [place] [facility] [address] [facility] [address] Performing Lab: [facility] [place] [facility] [address] [facility] [address] [facility] [place] [facility] CBC AND DIFF (AUTO) LYMPHOCYTE S/100 LEUKOCYTES IN BLOOD BY AUTOMATED COUNT 23.2 14.0 - 42.3 10/19 Specimen Type: BLOOD No comment entered. Ordering Provider: MIKAELA SHAY Report Released Date/Time: Oct 08, 2023 11:59 AM Reporting Lab: [facility] [place] [facility] [address] [facility] [address] Performing Lab: [facility] [place] [facility] [address] [facility] [facility] [address] [facility] [place] [facility] CBC AND DIFF (AUTO) MONOCYTES/ 100 LEUKOCYTES IN BLOOD BY AUTOMATED COUNT 8.8 5.1 - 13.7 10/19 Specimen Type: BLOOD No comment entered. Ordering Provider: MIKAELA SHAY Report Released Date/Time: Oct 08, 2023 11:59 AM Reporting Lab: [facility] [place] [facility] [address] [facility] [address] Performing Lab: [facility] [place] [facility] [address] [facility] [address] [facility] [place] [facility] CBC AND DIFF (AUTO) EOSINOPHIL S/100 LEUKOCYTES IN BLOOD BY AUTOMATED COUNT 3.9 0.4 - 6.8 10/19 Specimen Type: BLOOD No comment entered. Ordering Provider: MIKAELA SHAY Report Released Date/Time: Oct 08, 2023 11:59 AM Reporting Lab: [facility] [place] [facility] [address] [facility] [address] Performing Lab: [facility] [place] [facility] [address] [facility] [address] [facility] [place] [facility] CBC AND DIFF (AUTO) BASOPHILS/ 100 LEUKOCYTES IN BLOOD BY AUTOMATED COUNT 0.7 0.1 - 2.0 10/19 Specimen Type: BLOOD No comment entered. Ordering Provider: MIKAELA SHAY Report Released Date/Time: Oct 08, 2023 11:59 AM Reporting Lab: [facility] [place] [facility] [address] [facility] [address] Performing Lab: [facility] [place] [facility] [address] [facility] [address] [facility] [place] [facility] CBC AND DIFF (AUTO) NEUTROPHIL S [#/VOLUME] IN BLOOD BY AUTOMATED COUNT 3.53 10*3/uL 2.20 - 7.60 10/19 Specimen Type: BLOOD No comment entered. Ordering Provider: MIKAELA SHAY Report Released Date/Time: Oct 08, 2023 11:59 AM Reporting Lab: [facility] [place] [facility] [address] [facility] [address] Performing Lab: [facility] [place] [facility] [address] [facility] [address] [facility] [place] [facility] CBC AND DIFF (AUTO) LYMPHOCYTE S [#/VOLUME] IN BLOOD BY AUTOMATED COUNT 1.30 10*3/uL 1.00 - 3.20 10/19 Specimen Type: BLOOD No comment entered. Ordering Provider: MIKAELA SHAY Report Released Date/Time: Oct 08, 2023 11:59 AM Reporting Lab: [facility] [place] [address] [address] Performing Lab: [facility] [place] [facility] [address] [facility] [facility] [address] [facility] [place] [facility] CBC AND DIFF (AUTO) EOSINOPHIL S [#/VOLUME] IN BLOOD BY AUTOMATED COUNT 0.22 10*3/uL 0.03 - 0.44 10/19 Specimen Type: BLOOD No comment entered. Ordering Provider: MIKAELA SHAY Report Released Date/Time: Oct 08, 2023 11:59 AM Reporting Lab: [facility] [place] [address] Performing Lab: [facility] [place] [address] [facility] [place] [facility] CBC AND DIFF (AUTO) BASOPHILS [#/VOLUME] IN BLOOD BY AUTOMATED COUNT 0.04 10*3/uL 0.01 - 0.13 10/19 Specimen Type: BLOOD No comment entered. Ordering Provider: MIKAELA SHAY Report Released Date/Time: Oct 08, 2023 11:59 AM Reporting Lab: [facility] [place] [address] [address] Performing Lab: [facility] [place] [address] [address] [facility] [place] [facility] CBC AND DIFF (AUTO) IMMATURE GRANULOCYT ES/100 LEUKOCYTES IN BLOOD BY AUTOMATED COUNT 0.4 0.0 - 0.7 10/19 Specimen Type: BLOOD No comment entered. Ordering Provider: MIKAELA SHAY Report Released Date/Time: Oct 08, 2023 11:59 AM Reporting Lab: [facility] [place] [address] [address] Performing Lab: [facility] [facility] [address] [facility] [address] [facility] [facility] CBC AND DIFF (AUTO) IMMATURE GRANULOCYT ES [#/VOLUME] IN BLOOD 0.02 10*3/uL 0.00 - 0.06 10/19 Specimen Type: BLOOD No comment entered. Ordering Provider: MIKAELA SHAY Report Released Date/Time: Oct 08, 2023 11:59 AM Reporting Lab: [facility] [place] [facility] [address] [facility] [address] Performing Lab: [facility] [facility] [address] [facility] [address] [facility] [place] [facility] CREATINI NE (eGFR 2020) CREATININE [MASS/VOLU ME] IN SERUM OR PLASMA 0.83 mg/dL 0.50 - 1.40 04/08 Specimen Type: SERUM No comment entered. Ordering Provider: MIKAELA SHAY Report Released Date/Time: April 02, 2023 01:06 PM Reporting Lab: [facility] [facility] [address] [facility] [address] Performing Lab: [facility] [facility] [address] [facility] [address] [facility] [place] [facility] CREATINI NE (eGFR 2020) GLOMERULAR FILTRATION RATE/1.73 SQ M.PREDICTE D [VOLUME RATE/AREA] IN SERUM, PLASMA OR BLOOD BY CREATININE -BASED FORMULA (CKD-EPI) >90mL/mi n 04/08 Specimen Type: SERUM No comment entered. Ordering Provider: MIKAELA SHAY Report Released Date/Time: April 02, 2023 01:06 PM Reporting Lab: [facility] [place] [facility] [address] [facility] [address] Performing Lab: [facility] [address] [address] [facility] Vital Signs Combined list of inpatient and outpatient Vital Signs from Department of Defense and Veterans Affairs, ranging from 12 months to all on record, depending upon the facility. Vital Sign Value Date Comments Source SYSTOLIC BLOOD PRESSURE 158 10/24/20 24 07:57:57 [facility] [place] [facility] DIASTOLIC BLOOD PRESSURE 79 024 07:57:57 [facility] [place] [facility] PULSE OXIMETRY 98 10/24/2024 07:57:57 [facility] [place] WEIGHT 195 10/24/2024 07:57:57 [facility] [place] BMI 32 kg/m2 10/24/2024 07:57:57 [facility] [place] PAIN 6 10/24/2024 07:57:57 [facility] [place] TEMPERATURE 98 10/24/2024 07:57:57 [facility] [place] PULSE 58 10/24/2024 07:57:57 [facility] [place] [facility] RESPIRATION 16 10/24/2024 07:57:57 [facility] [place] [facility] SYSTOLIC BLOOD PRESSURE 164 04/24/20 24 08:33:13 [facility] [place] [facility] DIASTOLIC BLOOD PRESSURE 82 024 08:33:13 [facility] [place] [facility] PULSE OXIMETRY 97 04/24/2024 08:33:13 [facility] [place] WEIGHT 187 04/24/2024 08:33:13 [facility] [place] BMI 30 kg/m2 04/24/2024 08:33:13 [facility] [place] PAIN 5 04/24/2024 08:33:13 [facility] [place] TEMPERATURE 96.8 04/24/2024 08:33:13 [facility] [place] PULSE 68 04/24/2024 08:33:13 [facility] [place] RESPIRATION 16 04/24/2024 08:33:13 [facility] [place] Encounters Combined list of: 1) Encounters from Department of Veterans Affairs facilities going backup to the last 18 months, not all VA inpatient encounters are included; 2) Encounters from the Department of Defense facilities going backup to 280 months. Location Location Details Encounter Type Encounter Number Reason For Visit Attending Provider ADM Date DC Date Status Disposition Source [facility] [id number] Diagnos is: ICD-10- CM Z46.1 Encount er for fitting and adjustm ent of hearing aid Cori KONG 07/26 [facility] Out[facility] Encounter [id number] 08/08 [facility] Encounter [id number] 10/13 [facility] OFFICE O/P EST MOD 30-39 MIN [id number] Diagnos is: ICD-10- CM H93.13 Tinnitu s, MICHELLE Simms MMMARILUZ JAWED 10/27 [facility] HEARING AID REPAIR/MOD IFYING [id number] Diagnos is: ICD-10- CM Z46.1 Encount er for fitting and adjustm ent of hearing aid XENA RANGEL 10/28 [facility] HEARING AID REPAIR/MOD IFYING [id number] Diagnos is: ICD-10- CM Z46.1 Encount er for fitting and adjustm ent of hearing aid GARFIELD PICHARDO 02/03 [facility] COMPRE OPH EXAM EST PT 1/ [id number] Diagnos is: ICD-10- CM H40.013 Open angle with borderl ine finding s, low risk, bilyanely al ALEXIS,ADRIENNE H B 02/16 [facility] FIT SPECTACLES MULTIFOCAL [id number] Diagnos is: ICD-10- CM Z46.0 Encount er for fit/adj st of spectac les and contact lenses ADRIENNE ESPINOZA H B 02/16 [facility] HEARING AID REPAIR/MOD IFYING [id number] Diagnos is: ICD-10- CM H90.3 Sensori neural hearing loss, tyronyanely ATIF Núñez 03/30 [facility] HEARING SERVICE [id number] Diagnos is: ICD-10- CM Z46.1 Encount er for fitting and adjustm ent of hearing aid SENIOR,TITUS Ramirez 04/21 [facility] Out[facility] Encounter [id number] 04/24 [facility] OFFICE O/[place] HI 40 MIN [id number] Diagnos is: ICD-10- CM I24.9 Acute ischemi c heart disease , unspeci fied FURCOLO,TI NA 04/24 [facility] En[facility] [id number] 08/17 [facility] En[facility] [id number] 10/13 [facility] HEARING AID REPAIR/MOD IFYING [id number] Diagnos is: ICD-10- CM Z46.1 Encount er for fitting and adjustm ent of hearing aid JULIA ALLEN Ashley 10/17 [facility] [place] [facility] [facility] OFFICE O/P EST MOD 30 MIN [id number] Diagnos is: ICD-10- CM Z77.29 Contact with and exposur e to other hazardo us substan mal FURCOLO,TI NA 10/24 [place] [facility] [place] [facility] [place] [facility] Outpatient Encounter [id number] 10/24 [place] [facility] [place] [facility] Social History Combined list of available smoking, tobacco, and other social history from Department of Defense and Veterans Affairs facilities. Social History Type Response Date Comment Source Tobacco smoking status [facility] VA-TOBACCO USE FORMER CIGARETTES 10/24/2024 [place] [facility] [place] [facility] History of tobacco use ND-TOBACCO NEVER USED OTHER TYPE 10/24/2024 [place] [facility] [place] [facility] History of tobacco use VA-TOBACCO FORMER USER 10/27/2023 [place] [facility] [place] [facility] History of tobacco use VA-TOBACCO FORMER USER 10/13/2022 [place] [facility] [place] [facility] History of tobacco use VA-TOBACCO FORMER USER 09/25/2021 [place] [facility] [place] [facility] History of tobacco use VA-TOBACCO QUIT 15 YRS OR MORE 05/23/2019 [facility] [place] [facility] History of tobacco use VA-TOBACCO NEVER USED 05/26/2018 [facility] [place] [facility] History of tobacco use QUIT TOBACCO USE > 7 YEARS AGO 05/26/2018 [facility] [place] History of tobacco use QUIT TOBACCO USE > 7 YEARS AGO 04/19/2017 [facility] [place] [facility] History of tobacco use QUIT TOBACCO USE > 7 YEARS AGO 04/15/2016 . [place] [facility] History of tobacco use QUIT TOBACCO USE > 7 YEARS AGO 03/16/2014 quit 40 years ago [facility] Plan of Care List of future care activities from Department of [facility] Affairs facilities. Additional future care activities may be listed in the Assessment and Plan section. Date/Time Care Activity Care Activity Detail Facili ty 02/21/2025 AMBULATORY - MEDICINE AMBULATORY - MEDICI [facility] 04/17/2025 AMBULATORY - REHAB MEDICINE AMBULATORY - REHAB MEDICINE [facility] 04/23/2025 AMBULATORY - MEDICINE AMBULATORY - MEDICI [facility]
--- OUTSIDE RECORDS SUMMARY | 2025-01-10 06:39 | XMS_ITS | Encounter Summary ---
Author Name [facility] Address [address] [place] [id number] Care Team Providers Care Pipe Caulker Name Role Phone CAMILLA SOLIZ Primary Care [...] SUPPLEMEN DG MEDEX CORE Nov 08, 2019 [id number] LIZA MANYARD PATIENT [place] SUPPLEMEN DG MEDEX SAPPH HUEY Nov 08, 2022 [id number] LIZA MAYNARD PATIENT [place] MED[place] SUPPLEMEN DG WTW MDX B HEAR AND V Nov 08, 2019 [id number] LIZA MAYNARD PATIENT CIG[employer] PREFERRED PROVIDER ORGANIZAT ION (PPO) BUILD ING SERVI CE Nov 08, 2011 [id number] [phone] LIZA MAYNARD PATIENT [employer] ([id number]) PRESCRIPT ION May 08, 2007 [id number] [phone] LIZA MAYNARD PATIENT MEDICARE (WNR) MEDICARE (M) PART B Jun 08, 2015 PART B [id number] LIZA MAYNARD PATIENT MEDICARE (WNR) MEDICARE (M) PART A Jun 08, 2015 PART A [id number] [phone] LIZA MAYNARD PATIENT MEDICARE (WNR) MEDICARE (M) PART B Jun 08, 2015 PART B [id number] LIZA MAYNARD PATIENT MEDICARE (WNR) MEDICARE (M) PART A Jun 08, 2015 PART A [id number] LIZA MAYNARD PATIENT MEDICARE (WNR) MEDICARE (M) PART B Jun 08, 2015 PART B [id number] LIZA MAYNARD PATIENT MEDICARE (WNR) MEDICARE (M) PART A Jun 08, 2015 PART A [id number] LIZA MAYNARD PATIENT Selected Encounter This section includes the information on record at [place] for the Encounter. Date/Time Encounter Type Encounter Description Reason Provider Source Oct 24, 2024 08:00 AM OFFICE O/P EST MOD 30 MIN PRIMARY CARE/MEDICINE ICD-10-CM Z77.29 Contact with and exposure to other hazardous substances FURCOLO,CAMILLA E Encounter Template Text not used by [place] Assessments - Encounter Diagnoses This section includes the primary and secondary diagnoses documented for the Encounter. Date/Time Primary/Secondary Diagnosis Diagnosis Name Provider Source Nov 19, 2024 09:25 AM PRIMARY Contact with and exposure to other hazardous substances FURCOLO,CAMILLA [facility] [place] [facility] Nov 19, 2024 09:25 AM SECONDARY Acute ischemic heart disease, unspecified FURCOLO,CAMILLA [facility] [place] [facility] Nov 19, 2024 09:25 AM SECONDARY Benign prostatic hyperplasia without lower urinry tract symp FURCOLO,CAMILLA [facility] [place] [facility] Nov 19, 2024 09:25 AM SECONDARY Cervicalgia FURCOLO,CAMILLA [facility] [place] [facility] Nov 19, 2024 09:25 AM SECONDARY Essential (primary) hypertension FURCOLO,CAMILLA [facility] [place] [facility] Nov 19, 2024 09:25 AM SECONDARY Gastro-esophageal reflux disease without esophagitis FURCOLO,CAMILLA [facility] [place] [facility] Nov 19, 2024 09:25 AM SECONDARY Low back pain, unspecified FURCOLO,CAMILLA [facility] [place] [facility] Nov 19, 2024 09:25 AM SECONDARY Pure hypercholesterolem ia, unspecified FURCOLO,CAMILLA [facility] [place] [facility] Nov 19, 2024 09:25 AM SECONDARY Sensorineural hearing loss, bilateral FURCOLO,CAMILLA [facility] [place] [facility] Nov 19, 2024 09:25 AM SECONDARY Tinnitus, bilateral FURCOLO,CAMILLA [facility] [place] [facility] Plan of Treatment: Future Appointments (+ 6 months) and Future Tests (+/- 45 days) The Plan of Treatment section includes future care activities for the patient from all [place] [facility]. This section includes future appointments and future orders which are active, pending or scheduled. Future Appointments This section includes appointments that were scheduled to occur 6 months from the date of the Encounter, up to a maximum of 20 appointments. The data comes from all [place] treatment facilities. Appointment Date/Time Appointment Type Appointme nt Facility Name Feb 21, 2025 07:30 AM AMBULATORY - MEDICINE [facility] [place] [facility] Apr 17, 2025 08:30 AM AMBULATORY - REHAB MEDICIN E [facility] [place] [facility] Apr 23, 2025 08:30 AM [facility]AT[facility] - [facility]INE [facility] Lab Results: +/- 30 days of the encounter This section includes the Chemistry and Hematology Lab Results on record with [place] for the patient. Radiology Reports and Pathology Reports are provided separately, in subsequent sections. Lab Results This section contains the Chemistry/Hematology Results that were resulted 30 days before or 30 daysafter the date of the Encounter. Date/Time Source Result Type Result - Unit Interpretation Reference Range Comment Oct 17, 2024 08:35 AM [facility] [place] [facility] PSA Specimen Type: SERUM No comment entered. Ordering Provider: CAMILLA SOLIZ Report Released Date/Time: Apr 24, 2024 09:20 AM Reporting [facility] [address] [address] Performing Lab: [facility] [place] [facility] [address] [facility] [id number] PSA 2.76 ng/mL 0.00-4.00 Vital Signs: All taken on the encounter date This section contains inpatient and outpatient Vital Signs collected on the date of the Encounter. Date/Time Temperature Pulse Blood Pressure Respiratory Rate SP02 Pain Height Weight Body Mass Index Source Oct 24, 2024 08:22 AM 138/72 [facility] [place] [facility] Oct 24, 2024 07:57 AM 98 58 158/79 16 98 6 195 32 [facility] [place] [facility] Social History: Smoking Status (Most current) and Tobacco Use (All prior to encounter date) This section includes the most current, and the historical, smoking and tobacco- related health factors from the [place] facility where the Encounter took place. Current Smoking Status This section includes the most current smoking, or tobacco-related health factor, from the [place] facility where the Encounter took place. Date/Time Current Smoking Status Comment [facility] Oct 24, 2024 08:00 AM VA-TOBACCO USE FOR CITLALLI CIGARETTES [facility] [place] [facility] Tobacco Use History This section includes a history of the smoking, or tobacco-related health factors, that were collected on or before the date of the Encounter. The data comes from the [place] facility where the Encounter took place. Date/Time Smoking Status/Tobac co Use Comment Facility Oct 24, 2024 08:00 AM VA-TOBACCO USE FORMER CIGARETTES [facility] [place] [facility] Oct 27, 2023 09:00 AM VA-TOBACCO FORMER USER [facility] [place] [facility] Oct 27, 2023 09:00 AM VA-TOBACCO QUIT 15 YRS OR MORE [facility] [place] [facility] Oct 13, 2022 09:30 AM VA-TOBACCO FORMER USER [facility] [place] [facility] Oct 13, 2022 09:30 AM VA-TOBACCO QUIT 15 YRS OR MORE [facility] [place] [facility] Sep 25, 2021 09:00 AM VA-TOBACCO FORMER USER [facility] [place] [facility] Sep 25, 2021 09:00 AM VA-TOBACCO QUIT 15 YRS OR MORE [facility] [place] [facility] May 23, 2019 08:36 AM VA-TOBACCO FORMER USER [facility] [place] [facility] May 23, 2019 08:36 AM VA-TOBACCO QUIT 15 YRS OR MORE [facility] [place] [facility] May 26, 2018 08:24 AM VA-TOBACCO NEVER USED [facility] [place] [facility] May 26, 2018 07:54 AM QUIT TOBACCO USE > 7 YEARS AGO [facility] [place] [facility] Apr 19, 2017 08:50 AM QUIT TOBACCO USE > 7 YEARS AGO [facility] [place] [facility] Apr 15, 2016 09:36 AM QUIT TOBACCO USE > 7 YEARS AGO . [facility] [place] [facility] March 16, 2014 02:49 PM QUIT TOBACCO USE > 7 YEARS AGO quit 40 years ago [facility] [place] [facility] Encounter Notes: All associated encounter notes This [...] Provider: Lexie Marks (retiring in Spring 2023) [place] Specialists: audiology [facility] Specialists: Cardiology: Dr. Sanjana Barba urology: Dr. Van HISTORY PERIOD OF SERVICE - [place] [facility] CONNECTED % - 10 Rated Disabilities: TINNITUS (10%-SC) IMPAIRED HEARING (0%-SC) HISTORY OF PRESENT ILLNESS Patient presents today for routine follow-up. stable health. his pcp to retire next spring- woudl like all his care to come though [place]- does not need any meds yet. verified dosages. uses tramadol sparingly- last used once last year for back pain RELEVANT PAST MEDICAL HISTORY Active problems - Computerized Problem List is the source for the followin. Exposure to potentially hazardous substance (SCT [id number]) Entered automatically through [facility] Problem List documentation program 2. Hernia of anterior abdominal wall 3. Ischemic heart disease S/p drug eluting Sent in [facility] on 03/28/19 4. Hypercholesterolemia 5. Benign prostatic hyperplasia 6. Tinnitus 7. Hearing loss (SNOMED CT 46589548) 8. Low back pain (SNOMED CT 234822226) 9. Neck pain (SNOMED CT 26810150) 10. Tension headache 11. Obesity (SNOMED CT 666792045) 12. Essential hypertension (SNOMED CT 53378311) 13. Gastroesophageal reflux disease (SNOMED CT 526797002) 14. Hiatal hernia (SNOMED CT 67946791) 15. 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 Exposure to potentially hazardous substance (SCT 899154560884519) Entered automatically through [facility] Problem List documentation program 2. Ischemic heart disease S/p drug eluting Sent in [facility] on 03/28/19 3. Hypercholesterolemia able to tolerate low dose atorvastatin 20 mg every other day 4. Benign prostatic hyperplasia- not on any meds- sees Dr. Van yearly- stable PSA 5. Tinnitus 6. Hearing loss (SNOMED CT 57119786) 7. Low back pain (SNOMED CT 326187837) chronic in nature, uses tramadol sparingly only 1-2 times per year with flare up 8. Neck pain (SNOMED CT 74204968) 9. Essential hypertension (SNOMED CT 15668381)- mildly elevated today- if persistent elevattion- will chnage losartan to valsartan. on low dose almodipien and metoprolol 10. Gastroesophageal reflux disease (SNOMED CT 726073586) HEALTH MAINTENANCE Colonoscopy - stool cards Abdominal [...] of active outpatient [facility] and dispensed from another [place] or [facility] facility (remote) as well as [...] D.O. PHYSICIAN Signed: 10/24/2024 08:28 CAMILLA SOLIZ [facility] [place] [facility] Oct 24, 2024 07:53 AM PREVENTIVE MEDICINE [...] guard, watchful, or easily startled? YES 5. Kelley numb or detached from people, activities, or your surroundings? YES 6. Kelley guilty or unable to stop blaming yourself [...] to forward a copy to his/her clinician. /myles/ SANDRA JALLOH LPN License Practical Nurse Signed: 10/24/2024 08:05 10/24/2024 ADDENDUM STATUS: COMPLETED Influenza Immunization: The patient has received the seasonal influenza vaccine for the current season at another location. Documented: INFLUENZA, UNSPECIFIED FORMULATION Historical Date Administered: Aug 17, 2024 Series: Complete Outside Location: Outside Healthcare Provider Information Source: FROM PATIENT'S RECALL /rafi JALLOH LPN License Practical Nurse Signed: 10/24/2024 08:06 SANDRA JALLOH [facility]
--- OUTSIDE RECORDS SUMMARY | 2025-01-10 06:39 | XMS_ITS | Encounter Summary ---
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 ORGANIZAT ION (PPO) BUILD ING SERVI CE Nov 08, 2011 [id number] [phone] LIZA MAYNARD PATIENT [employer] ([id number]) PRESCRIPT ION May 08, 2007 [id number] LIZA MAYNARD PATIENT MEDICARE (WNR) MEDICARE (M) PART A Jun 08, 2015 PART A [id number] [phone] LIZA MAYNARD PATIENT MEDICARE (WNR) MEDICARE (M) PART B Jun 08, 2015 PART B [id number] LIZA MAYNARD PATIENT MEDICARE (WNR) MEDICARE (M) PART A Jun 08, 2015 PART A [id number] LIZA MAYNARD PATIENT MEDICARE (WNR) MEDICARE (M) PART B Jun 08, 2015 PART B [id number] LIZA MAYNARD PATIENT MEDICARE (WNR) MEDICARE (M) PART A Jun 08, 2015 PART A [id number] LIZA MAYNARD PATIENT MEDICARE (WNR) MEDICARE (M) PART B Jun 08, 2015 PART B [id number] LIZA MAYNARD PATIENT Selected Encounter This section includes the information on record at [place] for the Encounter. Date/Time Encounter Type Encounter Description Reason Provider Source Feb 17, 2024 08:00 AM COMPRE OPH EXAM EST PT 1/> OPTOMETRY ICD-10-CM H40.013 Open angle with borderline findings, low risk, bilateral MERHAR,RANDOLPH B E Encounter Template Text not used by [place] Assessments - Encounter Diagnoses This section includes the primary and secondary diagnoses documented for the Encounter. Date/Time Primary/Secondary Diagnosis Diagnosis Name Provider Source March 09, 2024 11:26 AM PRIMARY Open angle with borderline findings, low risk, bilateral MERHAR,RANDOLPH B [facility] [place] [facility] March 09, 2024 11:26 AM SECONDARY Benign neoplasm of left choroid MERHAR,RANDOLPH B [facility] [place] [facility] March 09, 2024 11:26 AM SECONDARY Combined forms of age-related cataract, bilateral MERHAR,RANDOLPH B [facility] [place] [facility] March 09, 2024 11:26 AM SECONDARY Dry eye syndrome of bilateral lacrimal glands MERHAR,RANDOLPH B [facility] [place] [facility] March 09, 2024 11:26 AM SECONDARY Hypermetropia, bilateral MERHAR,RANDOLPH B [facility] [place] [facility] Plan of Treatment: Future Appointments (+ 6 months) and Future Tests (+/- 45 days) The Plan of Treatment section includes future care activities for the patient from all [place] [facility]. This section includes future appointments and future orders which are active, pending or scheduled. Future Appointments This section includes appointments that were scheduled to occur 6 months from the date of the Encounter, up to a maximum of 20 appointments. The data comes from all [place] treatment facilities. Appointment Date/Time Appointment Type Appointme nt Facility Name March 30, 2024 08:00 AM AMBULATORY - REHAB MEDICIN E [facility] [place] [facility] Apr 21, 2024 08:00 AM AMBULATORY - REHAB MEDICIN E [facility] [place] [facility] Apr 24, 2024 08:30 AM AMBULATORY - MEDICINE [facility] [place] [facility] Social History: Smoking Status (Most current) and Tobacco Use (All prior to encounter date) This section includes the most current, and the historical, smoking and tobacco- related health factors from the [place] facility where the Encounter took place. Current Smoking Status This section includes the most current smoking, or tobacco-related health factor, from the VA facility where the Encounter took place. Date/Time Current Smoking Status Comment [facility] Oct 27, 2023 09:00 AM VA-TOBACCO FORMER USER [facility] [place] [facility] Tobacco Use History This section includes a history of the smoking, or tobacco-related health factors, that were collected on or before the date of the Encounter. The data comes from the [place] facility where the Encounter took place. Date/Time Smoking Status/Tobac co Use Comment Facility Oct 27, 2023 09:00 AM VA-TOBACCO QUIT 15 YRS OR MORE [facility] [place] [facility] Oct 13, 2022 09:30 AM VA-TOBACCO FORMER USER [facility] [place] [facility] Oct 13, 2022 09:30 AM VA-TOBACCO QUIT 15 YRS OR MORE [facility] [place] [facility] Sep 25, 2021 09:00 AM VA-TOBACCO FORMER USER [facility] [place] [facility] Sep 25, 2021 09:00 AM VA-TOBACCO QUIT 15 YRS OR MORE [facility] [place] [facility] May 23, 2019 08:36 AM VA-TOBACCO FORMER USER [facility] [place] [facility] May 23, 2019 08:36 AM VA-TOBACCO QUIT 15 YRS [facility] May 26, 2018 08:24 AM VA-TOBACCO NEVER USED [facility] May 26, 2018 07:54 AM QUIT TOBACCO USE > 7 YEARS AGO [facility] [place] [facility] Apr 19, 2017 08:50 AM QUIT TOBACCO USE > 7 YEARS AGO [facility] Apr 15, 2016 09:36 AM QUIT TOBACCO USE > 7 YEARS AGO . [facility] [place] [facility] March 16, 2014 02:49 PM QUIT TOBACCO USE > 7 YEARS AGO quit [facility] Encounter Notes: All associated encounter notes This section contains the clinical notes associated to the Encounter. Date/Time Encounter Note(s) Provider Source Feb 17, 2024 07:49 AM OPTOMETRY NOTE: LOCAL TITLE: OPTOMETRY NOTE STANDARD TITLE: OPTOMETRY NOTE DATE OF NOTE: FEB 17, 2024@07:49 ENTRY DATE: FEB 17, 2024@07:49:18 AUTHOR: LUIS DOWELL COSIGNER: RANDOLPH ESPINOZA URGENCY: STATUS: COMPLETED OPTOMETRY NOTE Has ADDENDA Active problems - Computerized Problem List is the source for the followin. Exposure to potentially hazardous substance ([facility] [id number]) 2. Hernia of anterior abdominal wall 3. Ischemic heart disease 4. Hypercholesterolemia 5. Benign prostatic hyperplasia 6. Tinnitus 7. Hearing loss (SNOMED CT 91628265) 8. Low back pain (SNOMED CT 472694058) 9. Neck pain (SNOMED CT 72673316) 10. Tension headache 11. Obesity (SNOMED CT 227379894) 12. Essential hypertension (SNOMED CT 24076061) 13. Gastroesophageal reflux disease (SNOMED CT 171083499) 14. Hiatal hernia (SNOMED CT 78234476) 15. Dysthymia (SNOMED CT 20988135) Active Outpatient Medications (including Supplies): Active Outpatient Medications Status 1) LIDOCAINE 5% PATCH APPLY 1 PATCH TOPICALLY ONCE DAILY ACTIVE FOR NERVE PAIN (LEAVE PATCH ON FOR 12 HOURS, THEN REMOVE PATCH) Active Non-VA Medications Status 1) Non-VA ACETAMINOPHEN [...] BY MOUTH EVERY 6 ACTIVE HOURS NEEDED 15 Total Medications Allergies: ATORVASTATIN, PRAVASTATIN, ZETIA All medications including those prescribed by outside VA's, community providers, and all OTC meds were reviewed and reconciled with patient to the best of their abilities. This 73 year old MALE is seen today for comprehensive eye exam Chief Complaint: Patient was admitted for 5 weeks at the hospital and was give Antibiotics, patient reports having severe burning and pain behind the eye. Patient reports prior to hospitalization, he had difficulty reading and needed more illumination in order to see. Patient uses ATs as needed for dry eye relief. OHx: 1. 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 Dry Eyes OU 3. Nuclear Sclerotic Cataracts OU 4. Epiretinal Membrane OD 5. 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 Refractive error with presbyopia OU (-) Pain: (-) ORTEGA: (-) Diplopia: (-) Flashes: (+) Floaters: longstanding, occassional (-) Amaurosis Fugax/Tia's: (-) Eye Injury: (-) Eye Surgery: (-) TBI FOHx: (-) Glaucoma/ARMD/Blindness (-) Smoker/Length of Time/PPD: quit 50 years ago Last eye exam: 02-15-23 Current Rx with last BCVA: OD: +1.25 -1.25 x 115 20/20 OS: +1.00 -1.75 x 075 20/20 Add: +2.50 DVA ( )sc ( x )cc OD: 20/20- OS: 20/20 Pupils: PERRL (-)APD EOMs: SAFE OU, (-)Pain/Diplopia CVF (facial, peripheral): FTFC OU Subjective Refraction: BCVA OD: +1.25 -1.25 x 115 20/20- OS: +1.00 -1.75 x 075 20/20 Add: +2.50 All the above performed by student, reviewed by attending Anterior segment: Performed by student, repeated by attending Lids: clear OU Conj: pinguecula nasal and temporal OU Cornea: Harry-Stahli line OU OU AC: 4x4 OU Iris: flat and clear OU, nevi inf nasal @ 7 o'clock OS (-)TID OU Lens: 1+ NSC, 1+ ACC OD, 1-2+ ACC OS (-)PXF OU Tonometry: Goldmann Performed by student, reviewed by attending OD: 16 mmHg OS: 14 mmHg Time: 8:10 am Last IOP: OD: 19 mmHg OS: 19 mmHg Previous Pachymetry: OD 575 OS 582 Previous Gonioscopy: open to CB 360 OU without angle recession or excessive pigment OU Fundus exam: Dilated: 8:14am Dilating Drops: 1GTT 1 % Tropicamide OU & 1GTT 2.5% Phenylephrine OU (Pt. ed. on side effects, dilation warning given and verbal consent obtained) Patient advised not to drive if they feel they have any symptoms which could affect their ability to drive safely. Patient advised not to engage in any activities which could put themselves or others at risk if they feel they have any symptoms which could affect their ability to perform those activities safely. Performed by student, repeated by attending Vit: Syneresis OU C/D: 0.40/0.40 OD, 0.40/0.40 OS (-)drance heme/notching OU Macula: trace ERM OU, small chorioretinal scar nasally,drusen sup OD PPole: clear OD, 1DD choroidal nevus OS (-)lipofuscin A/V: 2/3 Vessels: normal caliber OU Periph: flat and intact (-)holes, tears, detachments 360 OU Assessment/Plan: 1. 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 No known family history of glaucoma. Previous pachymetry thicker than average CCT. No evidence of pseudoexfoliation or pigment dispersion -Pt ed re today's findings -Pt ed re glaucoma as well as the natural history of this diagnosis including prognosis. -Stress importance of continued follow-up appointments - repeated back the plan and education. -RTC 1 year for CEE 2. Combined cataracts OU - not visually significant -Pt ed re today's findings and the importance of UV protection -Pt ed cataracts may cause reduction of BCVA and symptoms of glare -RTC sooner if vision declines or interferes with ADLs - repeated back the plan and education. -Monitor 3. Dry eye syndrome OU - Patient was educated and understanding on findings. Currently symptomatic therefore, the use of lubricating drops BID-QID OU, warm compresses and lid hygiene were recommended. - Monitor during next CEE. 4. Choroidal nevus OS - no high characteristics, stable -Monitor 5. Hyperopia with Astigmatism with presbyopia OU -Patient educated on findings, Rx updated -New RX ordered -Monitor Return to Clinic 1 year or earlier PRN Patient Education: Glaucoma: Patient was educated regarding glaucoma/glaucoma suspect as well as the natural history of this diagnosis including prognosis. Stress importance of compliance and persistency with glaucoma medication when prescribed, timely follow up as well as the role of ancillary testing. Exclusion criteria for ancillary testing include significantly reduced acuity, mental status changes affecting the patient's ability to attend to the test or other physical limitations that would prohibit the patient's ability to participate in testing. /myles/ LUIS DOWELL OPTOMETRY STUDENT Signed: 02/17/2024 11:55 /myles/ RANDOLPH ESPINOZA OD [employer] Cosigned: 02/18/2024 12:46 02/18/2024 ADDENDUM STATUS: COMPLETED The optometry architectural intern participated in this exam, I saw this in conjunction with the optometry student. The entrance tests and refraction were performed by the student and reviewed by me. I personally met with the patient, confirmed the history, complaints and the student's findings, and performed slit lamp and fundus evaluation as indicated. I reviewed and agree with the stated findings, assessment and plan. I have added/edited the documentation to reflect my exam findings and changes to the assessment and plan. patient offered and declined printed medication list Medication Reconciliation: Outpatient: Has the patient been taking medications as documented in the EMLR? YES: The patient has been taking medications as documented in the EMLR. Essential Medication List for Review used to complete this medication reconciliation. INCLUDED IN THIS LIST: Alphabetical list of active outpatient prescriptions dispensed from this [facility] (local) and dispensed from another [place] or [facility] facility (remote) as well as inpatient orders [...] whether with a VA or non-VA provider. JLV Link Data on this list may not be complete. Please check JLV. Allergies/ADRs (Tool #5) FACILITY ALLERGY/ADR -------- No Remote Allergy/ADR Data available for this patient [facility] ATORVASTATIN [facility] PRAVASTATIN [facility] [place] [facility] ZETIA Med Recon NoGlossary (Tool #1) INCLUDED IN THIS LIST: Alphabetical list of active outpatient prescriptions dispensed from this VA (local) and dispensed from another [place] or [facility] facility (remote) as well as inpatient orders (local pending and active), local clinic medications, locally documented non-VA medications, and local prescriptions that have or been discontinued in the past 90 days. Non-VA Meds Last Documented On: Jan 21, 2022 NOTE The display of VA prescriptions dispensed from another [place] or [facility] facility (remote) is limited to active outpatient prescription entries matched to National Drug File at the originating site and may not include some items such as investigational drugs, compounds, etc. NOT INCLUDED IN THIS LIST: Medications self-entered by the patient into personal health records (i.e. My [facility]) are NOT included in this list. Non-VA medications documented outside this [place], remote inpatient orders (regardless of status) and remote clinic medications are NOT included in this list. The patient and provider must always discuss medications the patient is taking, regardless of where the medication was dispensed or obtained. Non-VA ACETAMINOPHEN 325MG TAB TAKE TWO TABLETS BY MOUTH EVERY 6 HOURS Non-VA AMLODIPINE BESYLATE 5MG TAB TAKE ONE TABLET BY MOUTH ONCE DAILY Non-VA ASPIRIN 81MG EC TAB TAKE ONE TABLET BY MOUTH EVERY DAY Non-VA ATORVASTATIN CALCIUM 20MG TAB TAKE ONE-HALF TABLET BY MOUTH EVERY OTHER DAY Jan 21, 2022 Medication prescribed by Non-VA provider. OUTPT CARBOXYMETHYLCELLULOSE NA 0.5% OPH SOLN (Status = Discontinued) INSTILL 1 DROP INTO EACH EYE FOUR TIMES DAILY NEEDED FOR DRY EYE Rx# [id number] Last Released: 07/24/23 Qty/Days Supply: Rx Expiration Date: 02/16/24 Refills Remainin Indication: FOR DRY EYE OUTPT CARBOXYMETHYLCELLULOSE NA 0.5% OPH SOLN (Status = Active) INSTILL 1 DROP INTO EACH EYE FOUR TIMES DAILY NEEDED FOR DRY EYE Rx# [id number] Last Released: Qty/Days Supply: Rx Expiration Date: 02/17/25 Refills Remainin Indication: FOR DRY EYE Non-VA CHOLECALCIF 25MCG (D3-1,000UNIT) TAB TAKE ONE TABLET BY MOUTH EVERY DAY Non-VA CYANOCOBALAMIN TAB TAKE 3000MG BY MOUTH EVERY DAY Non-VA FISH OIL 1000MG (500MG DHA/EPA) CAP TAKE 1 CAPSULE BY MOUTH EVERY DAY Non-VA FLAXSEED CAP,ORAL TAKE SOME BY MOUTH EVERY DAY Non-VA GLUCOSAMINE/CHONDROITIN CAP/TAB TAKE ONE BY MOUTH EVERY DAY OUTPT LIDOCAINE 5% PATCH (Status = Active) APPLY 1 PATCH TOPICALLY ONCE DAILY FOR NERVE PAIN (LEAVE PATCH ON FOR 12 HOURS, THEN REMOVE PATCH) Rx# [id number] Last Released: 04/28/23 Qty/Days Supply: Rx Expiration Date: 04/22/24 Refills Remainin Indication: FOR NERVE PAIN Non-VA LOSARTAN 100MG TAB TAKE ONE TABLET BY MOUTH ONCE DAILY Non-VA MAGNESIUM OXIDE 420MG TAB TAKE ONE TABLET BY MOUTH EVERY DAY Non-VA METOPROLOL TARTRATE 25MG TAB TAKE ONE TABLET BY MOUTH TWICE DAILY Non-VA OMEPRAZOLE 20MG EC CAP TAKE 2 CAPSULES BY MOUTH EVERY MORNING 30 MINUTES BEFORE BREAKFAST Non-VA TRAMADOL HCL 50MG TAB TAKE ONE TABLET BY MOUTH EVERY 6 HOURS NEEDED SUPPLIES /myles/ RANDOLPH ESPINOZA OD [employer] Signed: 02/18/2024 12:46 LUIS DOWELL [facility] [place] [facility]
--- OUTSIDE RECORDS SUMMARY | 2025-01-10 06:39 | XMS_ITS | Patient Health Record ---
Author Organization [facility] Address [address] [place] [address] Care Team Providers Care Machine Tool Technician Instructor Name Role Phone Sebas BOSTON, Agustin Primary Care Provider Unavailab Albina Adams, Thai Unavailable Results Component Value Reference Range Notes Complete Blood Count Auto Di ff Reviewed date:02/19/2024 12:54:01 AM Interpretation: Performing Lab:[facility], [address] [place] [place] [phone] Notes/Report: White Blood Count 12.9 4.8-10.8 X10*3/uL Red Blood Count 4.16 4.60-5.80 X10*6/uL Hemoglobin 13.4 14.0-18.0 g/dl Hematocrit 38.4 42.0-52.0 % Mean Corpuscular Volume 92.3 80.0-98.0 fL Mean Corpuscular Hemoglobin 32.2 27.0-33.0 pg Mean Corpuscular HGB Conc 34.9 31.0-36.0 g/dl Red Cell Distribution Width 15.7 11.0-16.0 % Platelet Count 165 160-400 X10*3/uL Mean Platelet Volume 9.5 9.4-12.4 fL Neutrophils Percent Auto 89.8 45-73 % Imm Gran Pct Auto 0.9 0.0-0.4 % Lymphocytes Percent Auto 3.1 20-40 % Monocytes Percent Auto 6.0 2-11 % Eosinophils Percent Auto 0.0 0-4 % Basophils Percent Auto 0.2 0-2 % NRBC Pct Auto 0.0 0.0-0.2 /100WBC Neutrophils Absolute Auto 11.6 2.0-8.3 x10*3/u L Imm Gran Abs Auto 0.12 0.00-0.03 X10*3/uL Lymphocytes Absolute Auto 0.4 1.2-4.9 X10*3/u L Monocytes Absolute Auto 0.8 0.1-1.2 X10*3/uL Eosinophils Absolute Auto 0.0 0.0-0.4 X10*3/u L Basophils Absolute Auto 0.0 0.0-0.2 X10*3/uL NRBC Abs Auto 0.000 0.0-0.012 X10*3/uL Prothrombin Time INR Reviewed date:02/19/2024 12:54:27 AM Interpretation: Performing Lab:[address] [phone] Notes/Report: Unable to obtain. PT in MRI. 0928 -lacroil Prothrombin Time 16.0 11.1-13.3 SEC INTERNATIONAL NORM RATIO 1.3 0.9-1.1 INTERNATIONAL NORMALIZED RATIO (INR) REFERENCE RANGES Reference Range For patients not on anticoagulant therapy: 0.9 - 1.1 INR ranges for oral anticoagulant therapy: For prevention and treatment of venous thrombosis and pulmonary embolism: 2.0 - 3.0 For acute myocardial infarction with aspirin therapy: 2.0 - 3.0 For acute myocardial infarction without aspirin therapy: 3.0 - 4.0 For patients with mechanical prosthetic heart valves: 2.5 - 3.5 Liver Panel Reviewed date:02/19/2024 12:54:09 AM Interpretation: Performing Lab:[address] [phone] Notes/Report: Bilirubin Total 7.1 0.0-1.0 mg/dL Bilirubin Direct 3.4 0.0-0.5 mg/dL Aspartate Amino Transferase 197 5-37 U/L Alanine Aminotransferase 274 0-40 U/L Total Protein 6.2 6.5-8.0 g/dL Albumin Level 3.3 3.5-5.0 g/dL Alkaline Phosphatase 149 39-117 U/L Lipase Reviewed date:02/19/2024 12:54:19 AM Interpretation: Performing Lab:[address] [phone] Notes/Report: Lipase 1587 8-78 U/L Comprehensive Met. Panel Reviewed date:02/19/2024 12:02:37 PM Interpretation: Performing Lab:[address] [place] [address] Notes/Report: Sodium 139 135-145 mmol/L Potassium 3.6 3.3-5.1 mmol/L Chloride 106 96-108 mmol/L Carbon Dioxide 24 22-29 mmol/L Anion Gap 13 12-20 Blood Urea Nitrogen 19 9-16 mg/dL Creatinine 0.71 0.5-1.4 mg/dL Creatinine Clr Calc Pharmacy 93.6 eGFR (calculated from the MDRD study equation) and eCrCl (calculated from the Cockcroft-Gault equation) are based on different parameters and may not yield comparable results. If eCrCl result is absurd, please check patient's height/weight. Estimated Glomerular Filt Rate > 60 NOTE: For -[place] individuals, multiply the result by 1.210. Chronic Kidney Disease: Estimated GFR < 60 mL/min/1.73m2 Severe Kidney Disease: Estimated GFR < 15 mL/min/1.73m2 Glucose Random 94 60-115 mg/dL Calcium 8.8 8.4-10.2 mg/dL Bilirubin Total 5.6 0.0-1.0 mg/dL Aspartate Amino Transferase 128 5-37 U/L Alanine Aminotransferase 202 0-40 U/L Total Protein 6.1 6.5-8.0 g/dL Albumin Level 3.1 3.5-5.0 g/dL Alkaline Phosphatase 160 39-117 U/L Lipase Reviewed date:02/19/2024 12:01:57 PM Interpretation: Performing Lab:[facility], [address] [place] [phone] Notes/Report: Lipase 565 8-78 U/L Complete Blood Count Auto Di ff Reviewed date:02/20/2024 12:08:49 PM Interpretation: Performing Lab:[facility], [address] [place] [place] [phone] Notes/Report: White Blood Count 12.5 4.8-10.8 X10*3/uL Red Blood Count 3.76 4.60-5.80 X10*6/uL Hemoglobin 12.0 14.0-18.0 g/dl Hematocrit 34.4 42.0-52.0 % Mean Corpuscular Volume 91.5 80.0-98.0 fL Mean Corpuscular Hemoglobin 31.9 27.0-33.0 pg Mean Corpuscular HGB Conc 34.9 31.0-36.0 g/dl Red Cell Distribution Width 14.6 11.0-16.0 % Platelet Count 147 160-400 X10*3/uL Mean Platelet Volume 9.8 9.4-12.4 fL Neutrophils Percent Auto 87.6 45-73 % Imm Gran Pct Auto 1.0 0.0-0.4 % Lymphocytes Percent Auto 4.1 20-40 % Monocytes Percent Auto 7.1 2-11 % Eosinophils Percent Auto 0.1 0-4 % Basophils Percent Auto 0.1 0-2 % NRBC Pct Auto 0.0 0.0-0.2 /100WBC Neutrophils Absolute Auto 10.9 2.0-8.3 x10*3/u L Imm Gran Abs Auto 0.12 0.00-0.03 X10*3/uL Lymphocytes Absolute Auto 0.5 1.2-4.9 X10*3/u L Monocytes Absolute Auto 0.9 0.1-1.2 X10*3/uL Eosinophils Absolute Auto 0.0 0.0-0.4 X10*3/u L Basophils Absolute Auto 0.0 0.0-0.2 X10*3/uL NRBC Abs Auto 0.000 0.0-0.012 X10*3/uL Prothrombin Time INR Reviewed date:02/20/2024 12:08:58 PM Interpretation: Performing Lab:[address] [phone] Notes/Report: Prothrombin Time 13.5 11.1-13.3 SEC INTERNATIONAL NORM RATIO 1.1 0.9-1.1 INTERNATIONAL NORMALIZED RATIO (INR) REFERENCE RANGES Reference Range For patients not on anticoagulant therapy: 0.9 - 1.1 INR ranges for oral anticoagulant therapy: For prevention and treatment of venous thrombosis and pulmonary embolism: 2.0 - 3.0 For acute myocardial infarction with aspirin therapy: 2.0 - 3.0 For acute myocardial infarction without aspirin therapy: 3.0 - 4.0 For patients with mechanical prosthetic heart valves: 2.5 - 3.5 Liver Panel Reviewed date:02/20/2024 12:09:11 PM Interpretation: Performing Lab:[address] [phone] Notes/Report: Bilirubin Total 3.1 0.0-1.0 mg/dL Bilirubin Direct 1.5 0.0-0.5 mg/dL Aspartate Amino Transferase 58 5-37 U/L Alanine Aminotransferase 122 0-40 U/L Total Protein 6.2 6.5-8.0 g/dL Albumin Level 3.1 3.5-5.0 g/dL Alkaline Phosphatase 161 39-117 U/L Basic Metabolic Panel Fastin g Reviewed date:02/20/2024 12:11:11 PM Interpretation: Performing Lab:[address] [address] Notes/Report: Sodium 137 135-145 mmol/L Potassium 3.2 3.3-5.1 mmol/L Chloride 103 96-108 mmol/L Carbon Dioxide 25 22-29 mmol/L Anion Gap 12 12-20 Blood Urea Nitrogen 15 9-16 mg/dL Creatinine 0.59 0.5-1.4 mg/dL Creatinine Clr Calc Pharmacy 112.7 eGFR (calculated from the MDRD study equation) and eCrCl (calculated from the Cockcroft-Gault equation) are based on different parameters and may not yield comparable results. If eCrCl result is absurd, please check patient's height/weight. Estimated Glomerular Filt Rate > 60 NOTE: For -[place] individuals, multiply the result by 1.210. Chronic Kidney Disease: Estimated GFR < 60 mL/min/1.73m2 Severe Kidney Disease: Estimated GFR < 15 mL/min/1.73m2 Glucose Fasting 86 60-99 mg/dL Calcium 8.9 8.4-10.2 mg/dL Lipase Reviewed date:02/20/2024 12:11:25 PM Interpretation: Performing Lab:[facility], [address] [place] [phone] Notes/Report: Lipase 114 8-78 U/L Complete Blood Count Auto Di ff Reviewed date:02/21/2024 09:44:10 AM Interpretation: Performing Lab:[facility], [address] [place] [phone] Notes/Report: White Blood Count 13.4 4.8-10.8 X10*3/uL Red Blood Count 3.68 4.60-5.80 X10*6/uL Hemoglobin 11.9 14.0-18.0 g/dl Hematocrit 33.5 42.0-52.0 % Mean Corpuscular Volume 91.0 80.0-98.0 fL Mean Corpuscular Hemoglobin 32.3 27.0-33.0 pg Mean Corpuscular HGB Conc 35.5 31.0-36.0 g/dl Red Cell Distribution Width 14.2 11.0-16.0 % Platelet Count 180 160-400 X10*3/uL Mean Platelet Volume 9.7 9.4-12.4 fL Neutrophils Percent Auto 87.8 45-73 % Imm Gran Pct Auto 0.5 0.0-0.4 % Lymphocytes Percent Auto 4.7 20-40 % Monocytes Percent Auto 6.8 2-11 % Eosinophils Percent Auto 0.1 0-4 % Basophils Percent Auto 0.1 0-2 % NRBC Pct Auto 0.0 0.0-0.2 /100WBC Neutrophils Absolute Auto 11.7 2.0-8.3 x10*3/u L Imm Gran Abs Auto 0.07 0.00-0.03 X10*3/uL Lymphocytes Absolute Auto 0.6 1.2-4.9 X10*3/u L Monocytes Absolute Auto 0.9 0.1-1.2 X10*3/uL Eosinophils Absolute Auto 0.0 0.0-0.4 X10*3/u L Basophils Absolute Auto 0.0 0.0-0.2 X10*3/uL NRBC Abs Auto 0.000 0.0-0.012 X10*3/uL Liver Panel Reviewed date:02/21/2024 09:44:40 AM Interpretation: Performing Lab:[facility], [address] [place] [phone] Notes/Report: Bilirubin Total 1.8 0.0-1.0 mg/dL Bilirubin Direct 0.8 0.0-0.5 mg/dL Aspartate Amino Transferase 32 5-37 U/L Alanine Aminotransferase 83 0-40 U/L Total Protein 6.4 6.5-8.0 g/dL Albumin Level 3.1 3.5-5.0 g/dL Alkaline Phosphatase 135 39-117 U/L Basic Metabolic Panel Fastin g Reviewed date:02/21/2024 09:44:54 AM Interpretation: Performing Lab:[facility], [address] [place] [phone] Notes/Report: Sodium 137 135-145 mmol/L Potassium 3.0 3.3-5.1 mmol/L Chloride 103 96-108 mmol/L Carbon Dioxide 25 22-29 mmol/L Anion Gap 12 12-20 Blood Urea Nitrogen 12 9-16 mg/dL Creatinine 0.65 0.5-1.4 mg/dL Creatinine Clr Calc Pharmacy 102.3 eGFR (calculated from the MDRD study equation) and eCrCl (calculated from the Cockcroft-Gault equation) are based on different parameters and may not yield comparable results. If eCrCl result is absurd, please check patient's height/weight. Estimated Glomerular Filt Rate > 60 NOTE: For -[place] individuals, multiply the result by 1.210. Chronic Kidney Disease: Estimated GFR < 60 mL/min/1.73m2 Severe Kidney Disease: Estimated GFR < 15 mL/min/1.73m2 Glucose Fasting 106 60-99 mg/dL A fasting glucose from 100-125 mg/dl is considered impaired (pre-diabetes). Calcium 9.0 8.4-10.2 mg/dL Lipase Reviewed date:02/21/2024 09:45:02 AM Interpretation: Performing Lab:[facility], [address] [place] [phone] Notes/Report: Lipase 27 8-78 U/L Reason For Referral No Information Plan Of Treatment No Information Insurance Providers Payer Name Payer Address Payer Phone Subscriber Number Group Number Insured Name Patient Relationship to Insured Coverage Start Date Coverage End Date MEDICARE OF [place] [address] [place] [id number] MADISON MAYNARD Self - patient is the insured MEDEX ATTN CLAIMS [address] [place] [phone] [id number] MADISON MAYNARD Self - patient is the insured
--- OUTSIDE RECORDS SUMMARY | 2025-01-10 06:39 | XMS_ITS ---
Author Name [facility] [place] [facility] [place] Address [address] [place] [address] Care Team Providers Care Bellows Filler Name Role Phone CAMILLA SOLIZ Primary Care [...] SUPPLEMEN DG MEDEX CORE Nov 08, 2019 [id number] [phone] LIZA MAYNARD PATIENT [place] SUPPLEMEN DG MEDEX SAPPH HUEY Nov 08, 2022 [id number] LIZA MAYNARD PATIENT [place] SUPPLEMEN DG WTW MDX B HEAR AND V Nov 08, 2019 [id number] [phone] LIZA MAYNARD PATIENT CIGNA PREFERRED PROVIDER ORGANIZAT ION (PPO) BUILD ING SERVI CE Nov 08, 2011 [id number] [phone] LIZA MAYNARD PATIENT EXPRESS SCRIPTS ([id number]) PRESCRIPT ION May 08, 2007 [id number] LIZA MAYNARD PATIENT MEDICARE (WNR) MEDICARE (M) PART B Jun 08, 2015 PART B [id number] LIZA MAYNARD PATIENT MEDICARE (WNR) MEDICARE (M) PART A Jun 08, 2015 PART A [id number] LIZA MAYNARD PATIENT MEDICARE (WNR) MEDICARE (M) PART B Jun 08, 2015 PART B [id number] [phone] LIZA MAYNARD PATIENT MEDICARE (WNR) MEDICARE (M) PART A Jun 08, 2015 PART A [id number] [phone] LIZA MAYNARD PATIENT MEDICARE (WNR) MEDICARE (M) PART B Jun 08, 2015 PART B [id number] LIZA MAYNARD PATIENT MEDICARE (WNR) MEDICARE (M) PART A Jun 08, 2015 PART A [id number] [phone] LIZA MAYNARD PATIENT Selected Encounter This section includes the information on record at [place] for the Encounter. Date/Time Encounter Type Encounter Description Reason Provider Source March 30, 2024 08:00 AM HEARING AID REPAIR/MODIFYIN G AUDIOLOGY ICD-10-CM H90.3 Sensorineural hearing loss, bilateral PRAKASHJOSÉPJ Shade BLOCKE Ana Encounter Template Text not used by [place] Assessments - Encounter Diagnoses This section includes the primary and secondary diagnoses documented for the Encounter. Date/Time Primary/Secondary Diagnosis Diagnosis Name Provider Source March 30, 2024 09:35 AM PRIMARY Sensorineural hearing loss, bilateral PRAKASHJOSÉPJ Shade MENDEZ [facility] [place] [facility] March 30, 2024 09:35 AM SECONDARY Encounter for fitting and adjustment of hearing aid MUSHTAQ RANDALL Shade [facility] [place] [facility] March 30, 2024 09:35 AM SECONDARY Tinnitus, bilateral [facility] [place] [facility] Plan of Treatment: Future Appointments (+ [...] 20 appointments. The data comes from all [facility] treatment [facility]. Appointment Date/Time Appointment Type Appointme nt Facility Name Apr 21, 2024 08:00 AM AMBULATORY - [facility] Apr 24, 2024 08:30 AM [facility] Active, Pending, and Scheduled Orders This section includes a listing of several types of active, pending, and scheduled orders, including clinic medications orders, diagnostic test orders, procedure orders and consult orders; where the start date of the order is 45 days before the date of the Encounter or 45 days after the date of theEncounter. The data comes from all [facility]. Test Date/Time Test Type Test Details Facility Name Apr 24, 2024 12:00 AM Laboratory - Chemi stry Order BASIC METABOLIC PANEL (fasting) BLOOD (SST-SERUM) [facility] Apr 24, 2024 12:00 AM Laboratory - Chemi stry Order LIPID PANEL FASTING BLOOD (SST-SERUM) [facility] Lab Results: +/- 30 days of the encounter This section includes the Chemistry and Hematology Lab Results on record with [place] for the patient. Radiology Reports and Pathology Reports are provided separately, in subsequent sections. Lab Results This section contains the Chemistry/Hematology Results that were resulted 30 days before or 30 daysafter the date of the Encounter. Date/Time Source Result Type Result - Unit Interpretation Reference Range Comment Apr 28, 2024 01:00 AM [facility] OCCULT BLOOD FIT X1 SCREEN(IN-HOUSE) Specimen Type: FECES No comment entered. Ordering Provider: CAMILLA SOLIZ Report Released Date/Time: Apr 24, 2024 08:48 AM Reporting Lab: [facility] [address] [facility] [address] Performing Lab: [address] [address] OCCULT BLOOD (FIT)#1 OF 1 Negative NEG Apr 18, 2024 07:48 AM [facility] BASIC METABOLIC PANEL (fasting) Specimen Type: SERUM No comment entered. Ordering Provider: CAMILLA SOLIZ Report Released Date/Time: Apr 11, 2024 11:41 AM Reporting Lab: [facility] [address] [facility] [address] Performing Lab: [address] [address] UREA NITROGEN 12 mg/dL 7-25 GLUCOSE 100 mg/dL 65-100 SODIUM 141 mmol/L 135-145 POTASSIUM 4.2 mmol/L 3.5-5.0 CHLORIDE 106 mmol/L 100-110 CO2 25 meq/L 20-30 CREATININE, Serum 0.88 mg/dL 0.50-1.40 eGFR(CKD-EPI 2020) 90 mL/min >60 Apr 18, 2024 07:48 AM [facility] LIPID PANEL FASTING Specimen Type: SERUM No comment entered. Ordering Provider: CAMILLA SOLIZ Report Released Date/Time: Apr 11, 2024 11:41 AM Reporting Lab: [address] [address] Performing Lab: [address] [address] CHOLESTEROL 141 mg/dL TRIGLYCERIDE 159 mg/dL H 0-150 LDL calculated 64 mg/dL 0-129 CHOL/HDL 3.1 HDL CHOLESTEROL 45 mg/dL 40-60 Apr 18, 2024 07:48 AM [facility] LIVER FUNCTION Specimen Type: SERUM No comment entered. Ordering Provider: CAMILLA SOLIZ Report Released Date/Time: Apr 11, 2024 11:41 AM Reporting Lab: [address] [address] Performing Lab: [address] [address] PROTEIN,TOTAL 7.0 g/dL 6.0-8.3 ALBUMIN 4.0 g/dL 3.5-5.0 ALKALINE PHOSPHATASE 83 U/L 40-150 AST 24 U/L 5-34 ALT 22 U/L BILIRUBIN, TOTAL 1.5 mg/dL H 0.2-1.2 BILIRUBIN, DIRECT 0.5 mg/dL 0-0.5 Social History: Smoking Status (Most current) and [...] place. Date/Time Current Smoking Status Comment Facil [facility] Oct 27, 2023 09:00 AM VA-TOBACCO FORMER USER [place] [facility] [place] [facility] Tobacco Use History This section includes a history of the smoking, or tobacco-related health factors, that were collected on or before the date of the Encounter. The data comes from the [place] facility where the Encounter took place. Date/Time Smoking Status/Tobac co Use Comment Facility Oct 27, 2023 09:00 AM VA-TOBACCO QUIT 15 YRS OR MORE [place] [facility] [place] [facility] Oct 13, 2022 09:30 AM VA-TOBACCO FORMER USER [facility] [place] [facility] Oct 13, 2022 09:30 AM VA-TOBACCO QUIT 15 YRS OR MORE [facility] [place] [facility] Sep 25, 2021 09:00 AM VA-TOBACCO FORMER USER [place] [facility] [place] [facility] Sep 25, 2021 09:00 AM VA-TOBACCO QUIT 15 YRS OR MORE [place] [facility] [place] [facility] May 23, 2019 08:36 AM VA-TOBACCO FORMER USER [place] [facility] [place] [facility] May 23, 2019 08:36 AM VA-TOBACCO QUIT 15 YRS OR MORE [place] [facility] [place] [facility] May [...] YEARS AGO . [facility] [place] [facility] March 16, 2014 02:49 PM QUIT TOBACCO USE > 7 YEARS AGO quit 40 years ago [place] [facility] [place] [facility] Encounter Notes: All associated encounter notes This section contains the clinical notes associated to the Encounter. Date/Time Encounter Note(s) Provider Source March 30, 2024 07:15 AM AUDIOLOGY E & M NOTE: LOCAL TITLE: AUDIOLOGY CLINIC STANDARD TITLE: AUDIOLOGY E & M NOTE DATE OF NOTE: MARCH 30, 2024@07:15 ENTRY DATE: MARCH 30, 2024@07:15:50 AUTHOR: KIRAN RANDALL COSIGNER: URGENCY: STATUS: COMPLETED AUDIOLOGY CLINIC Has ADDENDA Dx CODE: H90.3-Sensorineural Hearing Loss, Bilateral APPOINTMENT TYPE: Hearing Re-Evaluation and Hearing Aid Selection BACKGROUND/HISTORY: Haven was seen 03/30/24 for a hearing re-evaluation and hearing aid selection appointment, unaccompanied. He was fit with [employer]se AI RICs on 04/23/21, and reports he prefers his previously issued mini BTEs. He continues to have issues with the fit of the right earmold despite new impression and impressions on file being used. He is eligible for new [facility] aids through the [facility] due to the age of the current devices. His last hearing evaluation was on 04/04/21 and he believes his hearing has declined since then. He reports longstanding constant bilateral tinnitus and denies concerns of vertigo. ASSESMENT: Results of today's testing are as follows: Otoscopy was WNL bilaterally. Could not maintain seals for tympanograms bilaterally. Pure tone audiometric testing under headphones in the right ear revealed hearing WNL through 2 kHz sloping to profound SNHL. Testing in the left ear revealed a moderate SNHL rising to WNL at 1 kHz sloping to severe SNHL. SRT WORD RECOGNITION (Recorded [place] CNC 1/2 Word List) Right 10dBHL 92% @ 70dBHL/40dBm Left 20dBHL 68% @ 70dBHL/40dBm No significant changes were found when compared to the 04/04/21 audiological evaluation. HEARING AID CHECK: Both hearing aids were cleaned and checked, and found to be in good working order. Microphone covers and wax guards were replaced. 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 Recommending sending these aids out for repair at time of upcoming HAF. HEARING AID SELECTION: Different hearing aid options were discussed. Haven reports he did not like the sound quality/fit of the MICHAEL hearing aids and would like his new hearing aids to be similar as possible to his [place] miniBTEs. He does not have a pacemaker and agreed to rechargeable devices. Discussed trialing a skeleton earmold for the right hearing aid and agreed. Farhad Carrol AI BTE Rs were selected and ordered in [facility]. Impressions were taken without incident and with 's verbal consent for earmolds to be used with thin tubes. EDUCATION/COUNSELING: The patient was counseled re: today's hearing test results. He demonstrated satisfactory understanding of the education and plan, and was given the opportunity to ask questions throughout today's visit. PLAN: 1. RTC on 04/21/24 at 8AM for 60 minute hearing aid fitting appointment. 2. Hearing re-evaluation in 3-5 years, or sooner if change in hearing occurs. * Patient Education Education provided on the following topics: Hearing test results Education provided to: P Response to Education: VU [place] Patient P Family F Significant Other SO Verbalizes Understanding VU Returns Demonstration RD Performs Independently PI Lacks Comprehension LC Refused Education RE Not Applicable NA * /myles/ KIRAN RANDALL STAFF SPORTS DEVELOPMENT OFFICER Signed: 03/30/2024 09:35 Receipt Acknowledged By: 03/30/2024 10:15 /myles/ AUBRIE MCADAMS LEAD SKIP LOCATOR 04/13/2024 ADDENDUM STATUS: COMPLETED Hearing aids received and certified, upcoming appointment scheduled on 04/21/2024. /myels/ GUILHERME GILLILAND Audiology Health Senior Human Resources Representative Signed: 04/13/2024 08:07 KIRAN RANDALL [facility]
[2025-01-10 06:49] LABS: MANUAL DIFF FLAG NO
[2025-01-10 07:04] LABS: Basophils Percent Auto 0.7 % (0-2); Eosinophils Absolute Auto 0.2 X10*3/uL (0.0-0.4); Eosinophils Percent Auto 2.9 % (0-4); Hematocrit 45.2 % (42.0-52.0); Hemoglobin 15.4 g/dl (14.0-18.0); Imm Gran Abs Auto 0.03 X10*3/uL (0.00-0.03); Imm Gran Pct Auto 0.5 % (0.0-0.4); Lymphocytes Absolute Auto 1.5 X10*3/uL (1.2-4.9); Mean Corpuscular HGB Conc 34.1 g/dl (31.0-36.0); Mean Corpuscular Hemoglobin 32.8 pg (27.0-33.0); Mean Corpuscular Volume 96.2 fL (80.0-98.0); Mean Platelet Volume 10.3 fL (9.4-12.4); Monocytes Absolute Auto 0.6 X10*3/uL (0.1-1.2); Monocytes Percent Auto 9.3 % (2-11); Neutrophils Absolute Auto 3.8 x10*3/uL (2.0-8.3); Neutrophils Percent Auto 61.6 % (45-73); Platelet Count 152 X10*3/uL (160-400); Red Cell Distribution Width 13.5 % (11.0-16.0); White Blood Count 6.1 X10*3/uL (4.8-10.8)
[2025-01-10 07:36] LABS: Alanine Aminotransferase 37 U/L (0-40); Anion Gap 13 (12-20); Aspartate Amino Transferase 49 U/L (5-37); Blood Urea Nitrogen 18 mg/dL (9-16); Carbon Dioxide 25 mmol/L (22-29); Chloride 108 mmol/L (96-108); Cholesterol 177 mg/dL (<200); Estimated Glomerular Filt Rate > 60; HDL Cholesterol 41 mg/dL (>40); LDL Cholesterol Calculated 76 mg/dL (<100); Potassium 4.7 mmol/L (3.3-5.1); Sodium 141 mmol/L (135-145); Triglycerides 303 mg/dL (<150)
== END 2025-01-10 06:35 | disposition home or self-care (01) ==
LOC: HO.LAB 06:34
PROVIDERS: PCP Family Medicine; Visit Provider Family Medicine
DX: I10 Essential (primary) hypertension (principal); E78.00 Pure hypercholesterolemia, unspecified; D72.819 Decreased white blood cell count, unspecified
CPT/HCPCS: 36415; 80051; 80061; 82550; 82565; 84450; 84460; 84520; 85025

== ENCOUNTER 2025-07-02 13:02 | Outpatient (REF) | payer MEDICARE, SELFPAY ==
[2025-07-02 14:57] LABS: Hemoglobin A1C 151.1900 umol/L; Total Hemoglobin (HGBA1C) 3975.8646 umol/L
[2025-07-02 15:19] LABS: PSA,Total (Free>4and<10) 3.71 ng/mL (0.00-4.00)
== END 2025-07-02 13:03 | disposition home or self-care (01) ==
LOC: HO.LAB 13:02
PROVIDERS: PCP Student in an Organized Health Care Education/Training Program; Visit Provider Student in an Organized Health Care Education/Training Program
DX: Z12.5 Encounter for screening for malignant neoplasm of prostate (principal); M54.50 Low back pain, unspecified; R53.83 Other fatigue; I25.10 Atherosclerotic heart disease of native coronary artery without angina pectoris; I10 Essential (primary) hypertension; I82.443 Acute embolism and thrombosis of tibial vein, bilateral
CPT/HCPCS: 36415; 82306; 83036; 84153; 84443; 96127; 99212

== ENCOUNTER 2025-07-02 13:02 | Outpatient (AMB) | payer MEDICARE, SELFPAY ==
--- OUTSIDE RECORDS SUMMARY | 2024-10-17 04:00 | XMS_ITS | Encounter Summary ---
Author Name [facility] [place] [facility] [place] Address [address] [place] [address] Care Team Providers Care Superintendent Stevedoring Name Role Phone CAMILLA SOLIZ Primary Care Provider Unavailabl e Insurance Providers: All historical and current Section Date Range: From patient's date of to the date document was created. This section includes the names of all active insurance providers for the patient. Insurance Provider Type of Coverage Plan Name Start of Policy Coverage End of Policy Coverage Group Number Member ID Insurance Provider's Telephone Number Policy Cantor's Name Patient's Relationship to Policy Cantor [place] MEDICARE SUPPLEMEN DG MEDEX CORE Nov 08, 2019 [id number] LIZA MAYNARD PATIENT [place] MED[place] SUPPLEMEN DG MEDEX SAPPH HUEY Nov 08, 2022 [id number] LIZA MAYNARD PATIENT [place] SUPPLEMEN DG WTW MDX B HEAR AND V Nov 08, 2019 [id number] [phone] LIZA MAYNARD PATIENT CIG[employer] PREFERRED PROVIDER ORGANIZAT ION (PPO) BUILD ING SERVI CE Nov 08, 2011 [id number] LIZA MAYNARD PATIENT EXPRESS S[employer]IPTS ([id number]) PRESCRIPT ION May 08, 2007 [id number] [phone] LIZA MAYNARD PATIENT MEDICARE (WNR) MEDICARE (M) PART A Jun 08, 2015 PART A [id number] LIZA MAYNARD PATIENT MEDICARE (WNR) MEDICARE (M) PART B Jun 08, 2015 PART B [id number] LIZA MAYNARD PATIENT MEDICARE (WNR) MEDICARE (M) PART A Jun 08, 2015 PART A [id number] LIZA MAYNARD PATIENT MEDICARE (WNR) MEDICARE (M) PART B Jun 08, 2015 PART B [id number] LIZA MAYNARD PATIENT MEDICARE (WNR) MEDICARE (M) PART A Jun 08, 2015 PART A [id number] LIZA MAYNARD PATIENT MEDICARE (WNR) MEDICARE (M) PART B Jun 08, 2015 PART B [id number] LIZA MAYNARD PATIENT Selected Encounter This section includes the information on record at [place] for the Encounter. Date/Time Encounter Type Encounter Description Reason Provider Source Oct 17, 2024 08:00 AM HEARING AID REPAIR/MODIFYING AUDIOLOGY ICD-10-CM Z46.1 Encounter for fitting and adjustment of hearing aid AVA ALLEN Encounter Template Text not used by [place] Assessments - Encounter Diagnoses This section includes the primary and secondary diagnoses documented for the Encounter. Date/Time Primary/Secondary Diagnosis Diagnosis Name Provider Source Oct 17, 2024 08:20 AM PRIMARY Encounter for fitting and adjustment of hearing aid ANGELES GILLILAND [facility] Oct 17, 2024 08:20 AM SECONDARY Sensorineural hearing loss, bilateral ANGELES GILLILAND [facility] Plan of Treatment: Future Appointments (+ 6 months) and Future Tests (+/- 45 days) The Plan of Treatment section includes future care activities for the patient from all [place] treatmentfacilities. This section includes future appointments and future orders which are active, pending or scheduled. Future Appointments This section includes appointments that were scheduled to occur 6 months from the date of the Encounter, up to a maximum of 20 appointments. The data comes from all [place] treatment facilities. Appointment Date/Time Appointment Type Appointme nt Facility Name Oct 24, 2024 08:00 AM [facility] [place] [facility] Feb 21, 2025 07:30 AM [facility] [place] [facility] Feb 21, 2025 09:00 AM [facility] [place] [facility] Apr 17, 2025 10:00 AM AMBULATORY - REHAB MEDICIN E [facility] Lab Results: +/- 30 days of the encounter This section includes the Chemistry and Hematology Lab Results on record with [place] for the patient. Radiology Reports and Pathology Reports are provided separately, in subsequent sections. Lab Results This section contains the Chemistry/Hematology Results that were resulted 30 days before or 30 daysafter the date of the Encounter. Date/Time Source Result Type Result - Unit Interpretation Reference Range Specimen Type Comment Oct 17, 2024 08:35 AM [facility] PSA SERUM Specimen Type: SERUM No comment entered. Ordering Provider: CAMILLA SOLIZ Report Released Date/Time: Apr 24, 2024 09:20 AM Reporting Lab: [facility] [address] [facility] [id number] Performing Lab: [address] [id number] PSA 2.76 ng/mL 0.00-4.00 Social History: Smoking Status (Most current) and Tobacco Use (All prior to encounter date) This section includes the most current, and the historical, smoking and tobacco- related health factors from the [place] facility where the Encounter took place. Current Smoking Status This section includes the most current smoking, or tobacco-related health factor, from the [place] facility where the Encounter took place. Date/Time Current Smoking Status Comment Steffi golden Oct 27, 2023 09:00 AM VA-TOBACCO FORMER USER [facility] Tobacco Use History This section includes a history of the smoking, or tobacco-related health factors, that were collected on or before the date of the Encounter. The data comes from the [place] facility where the Encounter took place. Date/Time Smoking Status/Tobac co Use Comment Facility Oct 27, 2023 09:00 AM VA-TOBACCO QUIT 15 YRS OR MORE [facility] Oct 13, 2022 09:30 AM VA-TOBACCO FORMER USER [facility] [place] Oct 13, 2022 09:30 AM VA-TOBACCO QUIT 15 YRS OR MORE [facility] [place] Sep 25, 2021 09:00 AM VA-TOBACCO FORMER USER [facility] [place] [facility] Sep 25, 2021 09:00 AM VA-TOBACCO QUIT 15 YRS OR MORE [facility] [place] May 23, 2019 08:36 AM VA-TOBACCO FORMER USER [facility] [place] [facility] May 23, 2019 08:36 AM VA-TOBACCO QUIT 15 YRS OR MORE [facility] [place] [facility] May 26, 2018 08:24 AM VA-TOBACCO NEVER USED [facility] [place] [facility] May 26, 2018 07:54 AM QUIT TOBACCO USE > 7 YEARS AGO [facility] [place] Apr 19, 2017 08:50 AM QUIT TOBACCO USE > 7 YEARS AGO [facility] [place] [facility] Apr 15, 2016 09:36 AM QUIT TOBACCO USE > 7 YEARS AGO . [place] [facility] [place] [facility] March 16, 2014 02:49 PM QUIT TOBACCO USE > 7 YEARS AGO quit 40 years ago [place] [facility] [place] [facility] Encounter Notes: All associated encounter notes This section contains the clinical notes associated to the Encounter. Date/Time Encounter Note(s) Provider Source Oct 17, 2024 07:47 AM AUDIOLOGY NOTE: LOCAL TITLE: AUDIOLOGY [facility] STANDARD TITLE: AUDIOLOGY NOTE DATE OF NOTE: OCT 17, 2024@07:47 ENTRY DATE: OCT 17, 2024@07:47:11 AUTHOR: GUILHERME GILLILAND COSIGNER: AVA ALLEN URGENCY: STATUS: COMPLETED October 17, 2024 History/Background: Speed was seen for a hearing aid follow up, unaccompanied. The presented today for routine maintenance on his hearing aids. Hearing aids: [employer]had EVOLV AI BTEs Serial Numbers: [id number] Battery size: Rechargeable Date Issued: 04/21/2024 Hearing aid check: Both hearing aids were cleaned and checked. Replaced size 4 thin tubes and yuimko covers. Biologic check was good. Plan: The was scheduled for routine maintenance on 04/17/2025 @ 0830. RTC order entered. Suicide Screen: C-SSRS Screening [place]-Suicide Severity Rating Scale (C-SSRS Screener) 1. Over the past month, have you wished you were or wished you could go to sleep and not wake up? No 2. Over the past month, have you had any actual thoughts of killing yourself? No 3. Over the past month, have you been thinking about how you might do this? Response not required due to responses to other questions. 4. Over the past month, have you had these thoughts and had some intention of acting on them? Response not required due to responses to other questions. 5. Over the past month, have you started to work out or worked out the details of how to kill yourself? Response not required due to responses to other questions. 6. If yes, at any time in the past month did you intend to carry out this plan? Response not required due to responses to other questions. 7. In your lifetime, have you ever done anything, started to do anything, or prepared to do anything to end your life (for example, collected pills, obtained a gun, gave away valuables, went to the roof but didn't jump)? No 8. If YES, was this within the past 3 months? Response not required due to responses to other questions. /myles/ GUILHERME GILLILAND Audiology Health Trauma Registrar Signed: 10/17/2024 08:21 /myles/ AVA Guo CCC-A CHIEF, AUDIOLOGY/TECHNICAL SERVICE SPECIALIST Cosigned: 10/17/2024 08:50 Receipt Acknowledged By: 10/17/2024 09:33 /myles/ MANUEL FENG [employer]PER[employer]ORY [employer] CUSTODIAN GUILHERME GILLILAND [facility]
--- OUTSIDE RECORDS SUMMARY | 2024-10-24 04:00 | XMS_ITS | Encounter Summary ---
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 Name Role Phone CAMILLA SOLIZ Primary Care [...] Cantor's Name Patient's Relationship to Policy Cantor KRISTINAEM [place] OF [place] MEDICARE SUPPLEMEN DG MEDEX CORE Nov 08, 2019 [id number] LIZA MAYNARD PATIENT [place] MED[place] SUPPLEMEN DG MEDEX SAPPH HUEY Nov 08, 2022 [id number] [phone] LIZA MAYNARD PATIENT [place] MED[place] SUPPLEMEN DG WTW MDX B HEAR AND V Nov 08, 2019 [id number] [phone] LIZA MAYNARD PATIENT CIGNA PREFERRED PROVIDER ORGANIZAT ION (PPO) BUILD ING SERVI CE Nov 08, 2011 [id number] LIZA MAYNARD PATIENT EXPRESS SCRIPTS ([id number]) PRESCRIPT ION May 08, 2007 [id number] LIZA MAYNARD PATIENT MEDICARE (WNR) MEDICARE (M) PART B Jun 08, 2015 PART B [id number] LIZA MAYNARD PATIENT MEDICARE (WNR) MEDICARE (M) PART A Jun 08, 2015 PART A [id number] [phone] LIZA MAYNARD PATIENT MEDICARE (WNR) MEDICARE (M) PART B Jun 08, 2015 PART B [id number] LIZA MAYNARD PATIENT MEDICARE (WNR) MEDICARE (M) PART A Jun 08, 2015 PART A [id number] LIZA MAYNARD PATIENT MEDICARE (WNR) MEDICARE (M) PART B Jun 08, 2015 PART B [id number] LIZA MAYNARD PATIENT MEDICARE (WNR) MEDICARE (M) PART A Jun 08, 2015 PART A [id number] [phone] LIZA MAYNARD PATIENT Selected Encounter This section includes the information on record at ME for the Encounter. Date/Time Encounter Type Encounter Description Reason Provider Source Oct 24, 2024 08:00 AM OFFICE O/P EST MOD 30 MIN PRIMARY CARE/MEDICINE ICD-10-CM Z77.29 Contact with and exposure to other hazardous substances ANA SOLIZA Ana Encounter Template Text not used by ME Assessments - Encounter Diagnoses This section includes the primary and secondary diagnoses documented for the Encounter. Date/Time Primary/Secondary Diagnosis Diagnosis Name Provider Source Nov 19, 2024 09:25 AM PRIMARY Contact with and exposure to other hazardous substances FURCOLO,CAMILLA [facility] [place] [facility] Nov 19, 2024 09:25 AM SECONDARY Acute ischemic heart disease, unspecified FURCOLO,CAMILLA [facility] [place] [facility] Nov 19, 2024 09:25 AM SECONDARY Benign prostatic hyperplasia without lower urinry tract symp FURCOLO,CAMILLA [facility] [place] [facility] Nov 19, 2024 09:25 AM SECONDARY Cervicalgia FURCOLO,CAMILLA [facility] [place] [facility] Nov 19, 2024 09:25 AM SECONDARY Essential (primary) hypertension FURCOLO,CAMILLA [facility] [place] [facility] Nov 19, 2024 09:25 AM SECONDARY Gastro-esophageal reflux disease without esophagitis FURCOLO,CAMILLA [facility] [place] [facility] Nov 19, 2024 09:25 AM SECONDARY Low back pain, unspecified FURCOLO,CAMILLA [facility] [place] [facility] Nov 19, 2024 09:25 AM SECONDARY Pure hypercholesterolem ia, unspecified [facility]COLO[facility] Nov 19, 2024 09:25 AM SECONDARY Sensorineural hearing loss, bilateral FURCOLO,CAMILLA [facility] [place] [facility] Nov 19, 2024 09:25 AM SECONDARY Tinnitus, bilateral [facility]URCOLO,[facility]ILLA [facility] Plan of Treatment: Future Appointments (+ 6 months) and Future Tests (+/- 45 days) The Plan of Treatment section includes future care activities for the patient from all [place] treatmentcilities. This section includes future appointments and future orders which are active, pending or scheduled. Future Appointments This section includes appointments that were scheduled to occur 6 months from the date of the Encounter, up to a maximum of 20 appointments. The data comes from all ME treatment facilities. Appointment Date/Time Appointment Type Appointme nt Facility Name Feb 21, 2025 07:30 AM [facility] Feb 21, 2025 09:00 AM [facility] Apr 17, 2025 10:00 AM [facility] Apr 23, 2025 08:30 AM [facility] Lab Results: +/- 30 days of the encounter This section includes the Chemistry and Hematology Lab Results on record with ME for the patient. Radiology Reports and Pathology Reports are provided separately, in subsequent sections. Lab Results This section contains the Chemistry/Hematology Results that were resulted 30 days before or 30 daysafter the date of the Encounter. Date/Time Source Result Type Result - Unit Interpretation Reference Range Specimen Type Comment Oct 17, 2024 08:35 AM [facility] PSA SERUM Specimen Type: SERUM No comment entered. Ordering Provider: CAMILLA SOLIZ Report Released Date/Time: Apr 24, 2024 09:20 AM Reporting Lab: [facility] [place] [facility] [address] [id number] Performing Lab: [facility] [place] [facility] [address] [address] PSA 2.76 ng/mL 0.00-4.00 Vital Signs: All taken on the encounter date This section contains inpatient and outpatient Vital Signs collected on the date of the Encounter. Date/Time Temperature Pulse Blood Pressure Respiratory Rate SP02 Pain Height Weight Body Mass Index Source Oct 24, 2024 08:22 AM 138/72 [facility] [place] [facility] Oct 24, 2024 07:57 AM 98 58 158/79 16 98 6 195 32 [facility] [place] [facility] Social History: Smoking Status (Most current) and Tobacco Use (All prior to encounter date) This section includes the most current, and the historical, smoking and tobacco- related health factors from the ME facility where the Encounter took place. Current Smoking Status This section includes the most current smoking, or tobacco-related health factor, from the ME facility where the Encounter took place. Date/Time Current Smoking Status Comment [facility] it Oct 24, 2024 08:00 AM VA-TOBACCO USE FOR CITLALLI CIGARETTES [facility] [place] [facility] Tobacco Use History This section includes a history of the smoking, or tobacco-related health factors, that were collected on or before the date of the Encounter. The data comes from the ME facility where the Encounter took place. Date/Time Smoking Status/Tobac co Use Comment Facility Oct 24, 2024 08:00 AM VA-TOBACCO USE FORMER CIGARETTES [facility] [place] [facility] Oct 27, 2023 09:00 AM VA-TOBACCO FORMER USER [facility] [place] [facility] Oct 27, 2023 09:00 AM VA-TOBACCO QUIT 15 YRS OR MORE [facility] [place] [facility] Oct 13, 2022 09:30 AM VA-TOBACCO FORMER USER [facility] [place] [facility] Oct 13, 2022 09:30 AM VA-TOBACCO QUIT 15 YRS OR MORE [facility] [place] [facility] Sep 25, 2021 09:00 AM VA-TOBACCO FORMER USER [facility] [place] [facility] Sep 25, 2021 09:00 AM VA-TOBACCO QUIT 15 YRS OR MORE [facility] [place] [facility] May 23, 2019 08:36 AM VA-TOBACCO FORMER USER [facility] [place] [facility] May 23, 2019 08:36 AM VA-TOBACCO QUIT 15 YRS OR MORE [facility] [place] [facility] May 26, 2018 08:24 AM VA-TOBACCO NEVER USED [facility] [place] [facility] May 26, 2018 07:54 AM QUIT TOBACCO USE > 7 YEARS AGO [facility] [place] [facility] Apr 19, 2017 08:50 AM QUIT TOBACCO USE > 7 YEARS AGO [facility] [place] [facility] Apr 15, 2016 09:36 AM QUIT TOBACCO USE > 7 YEARS AGO . [facility] [place] [facility] March 16, 2014 02:49 PM QUIT TOBACCO USE > 7 YEARS AGO quit 40 years ago [facility] [place] [facility] Encounter Notes: All associated encounter notes This section contains the clinical notes associated to the Encounter. Date/Time Encounter Note(s) Provider Source Oct 24, 2024 07:54 AM PHYSICIAN NOTE: LOCAL TITLE: MD NOTE STANDARD TITLE: PHYSICIAN NOTE DATE OF NOTE: OCT 24, 2024@07:54 ENTRY DATE: OCT 24, 2024@07:54:19 AUTHOR: CAMILLA SOLIZ COSIGNER: URGENCY: STATUS: MADISON GARCIA is a 74 year old WHITE MALE who is being seen today in primary care for routine follow up. CARE TEAM Community Primary Care Provider: Lexie Marks (retiring in Spring 2023) [place] Specialists: audiology Community Specialists: Cardiology: Dr. Sanjana Barba urology: Dr. Van HISTORY PERIOD OF SERVICE - [place] [facility] CONNECTED % - 10 Rated Disabilities: TINNITUS (10%-SC) IMPAIRED HEARING (0%-SC) HISTORY OF PRESENT ILLNESS Patient presents today for routine follow-up. stable health. his pcp to retire next spring- woudl like all his care to come though [place]- does not need any meds yet. verified dosages. uses tramadol sparingly- last used once last year for back pain RELEVANT PAST MEDICAL HISTORY Active problems - Computerized Problem List is the source for the followin. Exposure to potentially hazardous substance ([facility] [id number]) Entered automatically through [facility] Problem List documentation program 2. Hernia of anterior abdominal wall 3. Ischemic heart disease S/p drug eluting Sent in [facility] on 03/28/19 4. Hypercholesterolemia 5. Benign prostatic hyperplasia 6. Tinnitus 7. Hearing loss (SNOMED CT 15466248) 8. Low back pain (SNOMED CT 631468259) 9. Neck pain (SNOMED CT 22886361) 10. Tension headache 11. Obesity (SNOMED CT 726098924) 12. Essential hypertension (SNOMED CT 94147132) 13. Gastroesophageal reflux disease (SNOMED CT 448272144) 14. Hiatal hernia (SNOMED CT 10822605) 15. 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 Active and Recently Outpatient Medications (excluding Supplies): Active Outpatient Medications Status 1) CARBOXYMETHYLCELLULOSE NA 0.5% OPH SOLN INSTILL 1 DROP INTO ACTIVE EACH EYE FOUR TIMES DAILY NEEDED Indication: FOR DRY EYE Active Non-VA Medications Status 1) Non-VA ACETAMINOPHEN 325MG TAB 650MG BY MOUTH EVERY 6 HOURS ACTIVE 2) Non-VA AMLODIPINE BESYLATE 5MG TAB 5MG BY MOUTH ONCE DAILY ACTIVE 3) Non-VA ASPIRIN 81MG EC TAB 81MG BY MOUTH EVERY DAY ACTIVE 4) Non-VA ATORVASTATIN CALCIUM 40MG TAB 20MG BY MOUTH EVERY ACTIVE OTHER DAY 5) Non-VA CHOLECALCIF 25MCG (D3-1,000UNIT) TAB 1000UNIT BY ACTIVE MOUTH EVERY DAY 6) Non-VA CYANOCOBALAMIN TAB 3000MG BY MOUTH EVERY DAY ACTIVE 7) Non-VA FISH OIL 1000MG (500MG DHA/EPA) CAP 1000MG BY MOUTH ACTIVE EVERY DAY 8) Non-VA FLAXSEED CAP,ORAL SOME BY MOUTH EVERY DAY ACTIVE 9) Non-VA GLUCOSAMINE/CHONDROITIN CAP/TAB ONE BY MOUTH EVERY ACTIVE DAY 10) Non-VA LOSARTAN 100MG TAB 100MG BY MOUTH ONCE DAILY ACTIVE 11) Non-VA MAGNESIUM OXIDE 420MG TAB 420MG BY MOUTH EVERY DAY ACTIVE 12) Non-VA METOPROLOL TARTRATE 25MG TAB 25MG BY MOUTH TWICE ACTIVE DAILY 13) Non-VA OMEPRAZOLE 20MG EC CAP 40MG BY MOUTH EVERY MORNING 30 ACTIVE MINUTES BEFORE BREAKFAST 14) Non-VA TRAMADOL HCL 50MG TAB 50MG BY MOUTH EVERY 6 HOURS ACTIVE NEEDED 15 Total Medications REVIEW OF SYMPTOMS POSITIVE FOR: NEGATIVE FOR: CONSTITUTION: no weight loss/gain, fatigue, fevers, night sweats HEENT: no vision problems, hearing loss,swallowing difficulties, sinus pain CV: no chest pain, palpitations, dyspnea on exertion, orthopnea RESP: no cough, shortness of breath, wheezing GI: no abdominal pain, N/V/D, constipation, blood in stool, normal appetite : no urinary frequency, nocturia, hematuria MUSC: no joint pain, joint swelling, muscle aches NEURO: no headaches, dizziness, memory loss, tremor, weakness PSYCH: no depression, anxiety, suicidal or homicidal thoughts SKIN: no rash, new skin lesions PHYSICAL EXAM Vitals: - - - - - - - B/P: 158/79 (10/24/2024 07:57)- repeat improved, home BP readings brought also good pulse: 58 (10/24/2024 07:57) resp: 16 (10/24/2024 07:57) temp: 98 F [36.7 C] (10/24/2024 07:57) Ht: 66 in [167.6 cm] (04/22/2023 09:21) Wgt: 195 lb [88.45 kg] (10/24/2024 07:57) BMI: BMI: 31.5 Exam: - - - - - - - General: A&O x 3, no acute distress, normal affect and mood Neck: normal thyroid, normal carotids- no bruits CV: RRR S1S2, no murmur Resp: LCTA bilat, no wheezing, rales or rhonchi Neuro: grossly intact, no visible tremor, normal memory and speech Extremities: normal movement of extremities, normal gait, normal strength no LE edema RECENT LABS BMP (FASTING) Collection DT Specimen Test Name Result Units Ref Range 04/18/2024 07:48 SERUM UREA NITROGEN 12 mg/dL 7 - 25 04/18/2024 07:48 SERUM GLUCOSE 100 mg/dL 65 - 100 04/18/2024 07:48 SERUM SODIUM 141 mmol/L 135 - 145 04/18/2024 07:48 SERUM POTASSIUM 4.2 mmol/L 3.5 - 5.0 04/18/2024 07:48 SERUM CHLORIDE 106 mmol/L 100 - 110 04/18/2024 07:48 SERUM CO2 25 mEq/L 20 - 30 04/18/2024 07:48 SERUM CREATININE, Serum 0.88 mg/dL 0.50 - 1.40 05/19/2021 08:01 SERUM eGFR (IDMS) >60 Ref: >=60 LIVER PANEL TREND Collection DT Spec AST ALT T BILI ALK REBEKAH T. PROT ALBUMIN 04/18/2024 07:48 SERUM 24 22 1.5 H 83 7.0 4.0 10/19/2023 08:15 SERUM 31 56 H 1.1 107 7.3 4.1 04/08/2023 07:41 SERUM 27 32 1.7 H 88 7.3 4.2 09/30/2022 07:24 SERUM 20 20 1.5 H 79 7.2 4.1 03/31/2022 07:49 SERUM 27 29 1.8 H 76 7.2 4.0 LIPID PANEL TREND Collection DT Spec CHOL HDL CHO/HDL LDL-d LDL-c TRIG 04/18/2024 07:48 SERUM 141 45 3.1 64 159 H 10/19/2023 08:15 SERUM 152 40 3.8 73 195 H 04/08/2023 07:41 SERUM 153 41 3.7 79 167 H 09/30/2022 07:24 SERUM 146 40 3.7 75 156 H 03/31/2022 07:49 SERUM 177 35 L 5.1 92 250 H CBC TREND Collection DT Spec WBC RBC HGB HCT MCV MCH PLT 10/19/2023 08:15 BLOOD 5.60 4.68 15.3 45.1 96.4 32.7 H 234 04/08/2023 07:41 BLOOD 5.16 4.65 15.1 44.7 96.1 32.5 212 09/30/2022 07:24 BLOOD 5.67 4.27 14.1 41.0 96.0 33.0 H 218 03/31/2022 07:49 BLOOD 5.59 4.49 14.9 43.5 96.9 33.2 H 216 05/19/2021 08:01 BLOOD 5.51 4.51 14.7 43.8 97.1 32.6 202 PSA TREND Collection DT Spec PSA SR- 10/17/2024 08:35 SERUM 2.76 HEMOGLOBIN A1C TREND Collection DT Spec HGBA1c 04/08/2023 07:41 BLOOD 5.4 05/16/2018 07:49 BLOOD 5.5 ASSESSMENT AND PLAN Active problems - Computerized Problem List is the source for the followin. Exposure to potentially hazardous substance ([facility] [id number]) Entered automatically through [facility] Problem List documentation program 2. Ischemic heart disease S/p drug eluting Sent in [facility] on 03/28/19 3. Hypercholesterolemia able to tolerate low dose atorvastatin 20 mg every other day 4. Benign prostatic hyperplasia- not on any meds- sees Dr. Vna yearly- stable PSA 5. Tinnitus 6. Hearing loss (SNOMED CT 97628011) 7. Low back pain (SNOMED CT 227347121) chronic in nature, uses tramadol sparingly only 1-2 times per year with flare up 8. Neck pain (SNOMED CT 46067194) 9. Essential hypertension (SNOMED CT 11805190)- mildly elevated today- if persistent elevattion- will chnage losartan to valsartan. on low dose almodipien and metoprolol 10. Gastroesophageal reflux disease (SNOMED CT 430210472) HEALTH MAINTENANCE Colonoscopy - stool cards Abdominal Aortic Aneurysm Screening - done throught pcp Prostate screening - 2023 Tetanus: due every 10 years Pneumonia Vacccine: Flu Vaccine: due yearly Covid Vaccine: due yearly FOLLOW UP 6 months with labs VISIT TYPE: a MODERATE complexity visit where 30 minutes was spent in direct patient care, review of records and documentation. Upcoming Appointments: 02/21/2025 07:30 CWM/NO/OPTOMETRY 1 AM 04/17/2025 08:30 CWM NO AUDIO MAINT Medication Reconciliation: Outpatient: Has the patient been taking medications as documented in the EMLR? YES: The patient has been taking medications as documented in the EMLR. Essential Medication List for Review used to complete this medication reconciliation. INCLUDED IN THIS LIST: Alphabetical list of active outpatient prescriptions dispensed from this [place] (local) and dispensed from another VA or [facility]D facility (remote) as well as inpatient orders (local, pending and active), local clinic medications, locally documented non-VA medications, and local prescriptions that have or been discontinued in the past 90 days. - All changes in medications, including all non-VA/Herbal/OTC medications were entered into [facility]. - If there were any medications the patient should no longer take, they were discontinued. - The patient/caregiver was instructed to update this list, discard old lists, and take this list to the next appointment, whether with a VA or non-VA provider. Assess Statin Use - Lipids (CVD/DM): The patient is currently on a moderate or high dose statin. The patient is on the highest dose of statin that they can tolerate. /myles/ CAMILLA SOLIZ D.O. PHYSICIAN Signed: 10/24/2024 08:28 CAMILLA SOLIZ [facility] [place] [facility] Oct 24, 2024 07:53 AM PREVENTIVE MEDICINE NURSING NOTE: LOCAL TITLE: CLINICAL REMINDERS/NURSING STANDARD TITLE: PREVENTIVE MEDICINE NURSING NOTE DATE OF NOTE: OCT 24, 2024@07:53 ENTRY DATE: OCT 24, 2024@07:53:07 AUTHOR: SANDRA JALLOH EXP COSIGNER: URGENCY: STATUS: COMPLETED CLINICAL REMINDERS/NURSING Has ADDENDA Depression Screening: Perform PHQ-2 A PHQ-2 screen was performed. The score was 0 which is a negative screen for depression. Over the past two weeks, how often have you been bothered by the following problems? 1. Little interest or pleasure in doing things Not at all 2. Feeling down, depressed, or hopeless Not at all PTSD Screening: PC-PTSD-5 A PTSD screening test (PC-PTSD-5) was negative (score=3). IN THE PAST MONTH, have you ever had any experience that was so frightening, horrible or traumatic. For example: A serious accident or fire a physical or sexual assault or abuse An earthquake or flood A war Seeing someone be killed or seriously injured Having a loved one through homicide or suicide 1. Have you ever experienced this kind of event? YES 2. Had nightmares about the event(s) or thought about the event(s) when you did not want to? YES 3. Tried hard not to think about the event(s) or went out of your way to avoid situations that reminded you of the event(s)? NO 4. Been constantly on guard, watchful, or easily startled? YES 5. [place] numb or detached from people, activities, or your surroundings? YES 6. [place] guilty or unable to stop blaming yourself or others for the event(s) or any problems the event(s) may have caused? NO Alcohol Use Screen (AUDIT-C): Alcohol Screen: SCREEN FOR ALCOHOL (AUDIT-C) An alcohol screening test (AUDIT-C) was negative (score=0). 1. How often did you have a drink containing alcohol in the past year? Consider a drink to be a 12 ounce can or bottle of regular beer, 8 ounces of malt liquor, a 5 ounce glass of table wine, or a 1.5 ounce shot of liquor (like scotch, gin, or vodka). Never 2. How many drinks containing alcohol did you have on a typical day when you were drinking in the past year? Response not required due to responses to other questions. 3. How often did you have six or more drinks on one occasion in the past year? Response not required due to responses to other questions. Sexual Orientation: The patient thinks of their sexual orientation as: Straight or Heterosexual Td / Tdap Immunization: Prior Td vaccination The patient has previously received the Tetanus, Diphtheria vaccine (Td). Documented: TD(ADULT) UNSPECIFIED FORMULATION Historical Date Administered: Aug 17, 2024 Series: Complete Outside Location: Outside Healthcare Provider Information Source: FROM PATIENT'S RECALL Tobacco Use Screening: The patient is a former cigarette smoker. Quit smoking GREATER THAN OR EQUAL to 15 years. The patient has never used other types of tobacco. Advance Directive Screen MH AD: Patient has an up-to-date Advance Directive at an outside, non-va facility and was asked to forward a copy to his/her clinician. /rafi JALLOH LPN License Practical Nurse Signed: 10/24/2024 08:05 10/24/2024 ADDENDUM STATUS: COMPLETED Influenza Immunization: The patient has received the seasonal influenza vaccine for the current season at another location. Documented: INFLUENZA, UNSPECIFIED FORMULATION Historical Date Administered: Aug 17, 2024 Series: Complete Outside Location: Outside Healthcare Provider Information Source: FROM PATIENT'S RECALL /es/ SANDRA JALLOH LPN License Practical Nurse Signed: 10/24/2024 08:06 SANDRA JALLOHRL [facility]
--- OUTSIDE RECORDS SUMMARY | 2025-02-21 03:30 | XMS_ITS | Encounter Summary ---
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 ORGANIZAT ION (PPO) BUILD ING SERVI CE Nov 08, 2011 [id number] LIZA MAYNARD PATIENT EXPRESS SCRIPTS ([id number]) PRESCRIPT ION May 08, 2007 [id number] LIZA MAYNARD PATIENT MEDICARE (WNR) MEDICARE (M) PART B Jun 08, 2015 PART B [id number] LIZA MAYNARD PATIENT MEDICARE (WNR) MEDICARE (M) PART A Jun 08, 2015 PART A [id number] LIZA MAYNARD PATIENT MEDICARE (WNR) MEDICARE (M) PART B Jun 08, 2015 PART B [id number] [phone] LIZA MAYNARD PATIENT MEDICARE (WNR) MEDICARE (M) PART A Jun 08, 2015 PART A [id number] [phone] LIZA MAYNARD PATIENT MEDICARE (WNR) MEDICARE (M) PART B Jun 08, 2015 PART B [id number] LIZA MAYNARD PATIENT MEDICARE (WNR) MEDICARE (M) PART A Jun 08, 2015 PART A [id number] LIZA MAYNARD PATIENT Selected Encounter This section includes the information on record at [place] for the Encounter. 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 Date/Time Primary/Secondary Diagnosis Diagnosis Name Provider Source May 04, 2025 12:24 PM PRIMARY Benign neoplasm of right choroid MERHAR,RANDOLPH B [facility] May 04, 2025 12:24 PM SECONDARY Benign neoplasm of left choroid MERHAR,RANDOLPH B [facility] May 04, 2025 12:24 PM SECONDARY Combined forms of age-related cataract, bilateral MERHAR,RANDOLPH B [facility] May 04, 2025 12:24 PM SECONDARY Dry eye syndrome of bilateral lacrimal glands MERHAR,RANDOLPH B [facility] May 04, 2025 12:24 PM SECONDARY Hypermetropia, bilateral MERHAR,RANDOLPH B [facility] May 04, 2025 12:24 PM SECONDARY Ocular hypertension, right eye RANDOLPH ESPINOZA [facility] Plan of Treatment: Future Appointments (+ 6 months) and Future Tests (+/- 45 days) The Plan of Treatment section includes future care activities for the [facility] [place] [facility] This section includes future appointments and future orders which are active, pending or scheduled. Future Appointments This section includes appointments that were scheduled to occur 6 months from the date of the Encounter, up to a maximum of 20 appointments. The data comes from all [place] treatment facilities. Appointment Date/Time Appointment Type Appointme nt Facility Name Apr 17, 2025 10:00 AM AMBULATORY - REHAB MEDICIN E [facility] Apr 23, 2025 08:30 AM AMBULATORY - MEDICINE [facility] Social History: Smoking Status (Most current) and Tobacco Use (All prior to encounter date) This section includes the most current, and the historical, smoking and tobacco- related health factors from the VA facility where the Encounter took place. Current Smoking Status This section includes the most current smoking, or tobacco-related health factor, from the VA facility where the Encounter took place. Date/Time Current Smoking Status Comment [facility] Oct 24, 2024 08:00 AM VA-TOBACCO USE FOR [facility] Tobacco Use History This section includes a history of the smoking, or tobacco-related health factors, that were collected on or before the date of the Encounter. The data comes from the [place] facility where the Encounter took place. Date/Time Smoking Status/Tobac co Use Comment Facility Oct 24, 2024 08:00 AM VA-TOBACCO USE FORMER CIGARETTES [facility] Oct 27, 2023 09:00 AM VA-TOBACCO FORMER USER [facility] Oct 27, 2023 09:00 AM VA-TOBACCO QUIT 15 YRS OR MORE [facility] Oct 13, 2022 09:30 AM VA-TOBACCO FORMER USER [facility] Oct 13, 2022 09:30 AM VA-TOBACCO QUIT 15 YRS OR MORE [facility] Sep 25, 2021 09:00 AM VA-TOBACCO FORMER USER [facility] Sep 25, 2021 09:00 AM VA-TOBACCO QUIT 15 YRS OR MORE [facility] May 23, 2019 08:36 AM VA-TOBACCO FORMER USER [facility] May 23, 2019 08:36 AM VA-TOBACCO QUIT 15 YRS OR MORE [facility] May 26, 2018 08:24 AM VA-TOBACCO NEVER USED [facility] May 26, 2018 07:54 AM QUIT TOBACCO USE > 7 YEARS AGO [facility] Apr 19, 2017 08:50 AM QUIT TOBACCO USE > 7 YEARS AGO [facility] Apr 15, 2016 09:36 AM QUIT TOBACCO USE > 7 YEARS AGO . [facility] March 16, 2014 02:49 PM QUIT TOBACCO USE > 7 YEARS AGO quit 40 years ago [facility] Encounter Notes: All associated encounter notes This section contains the clinical notes associated to the Encounter. Date/Time Encounter Note(s) Provider Source Feb 21, 2025 04:06 PM ADDENDUM: LOCAL TITLE: Addendum STANDARD TITLE: ADDENDUM DATE OF NOTE: FEB 21, 2025@16:06:12 ENTRY DATE: FEB 21, 2025@16:06:13 AUTHOR: RANDOLPH ESPINOZA EXP COSIGNER: URGENCY: STATUS: COMPLETED please assist in ordering duplicate glasses: RX INFORMATION OD +1.00 -1.50 X115 Add:+2.50 Pzm:0.00 Dir: Prz2:0.00 Dir2: OS +1.00 -1.75 X75 Add:+2.50 Pzm:0.00 Dir: Prz2:0.00 Dir2: FITTING INFORMATION FPD: NPD: [place]:R:33 L:31 SEG HT:R:20 L:20 Tint:None Shade:None VA Billable Items FRAME: ASHLEY SVETLANABEE ZALDIVAR [id number] Right Lens: PLASTIC VA PROGRESSIVE 1.498 PLASTIC CR39 Left Lens: PLASTIC VA PROGRESSIVE 1.498 PLASTIC CR39 KLEAR ANTI-REFLECTIVE COATING RX INFORMATION OD +1.00 -1.50 X115 Add:+2.50 Pzm:0.00 Dir: Prz2:0.00 Dir2: OS +1.00 -1.75 X75 Add:+2.50 Pzm:0.00 Dir: Prz2:0.00 Dir2: FITTING INFORMATION FPD: NPD: [place]:R:33 L:31 SEG HT:R:20 L:20 Tint:OTERO Shade:3 VA Billable Items FRAME: ASHLEY ZALDIVAR [id number] Right Lens: PLASTIC VA PROGRESSIVE 1.498 PLASTIC CR39 Left Lens: PLASTIC VA PROGRESSIVE 1.498 PLASTIC CR39 UV400 SOLID TINT /myles/ RANDOLPH ESPNIOZA OD Water Purification Chemist Signed: 02/21/2025 16:07 Receipt Acknowledged By: 02/22/2025 09:44 /myles/ STANTON TURNER OPTOMETRY TECH --- Original Document --- 02/21/25 OPTOMETRY NOTE: 74 WHITE MALE NOT OR Last eye exam: 02/17/24 Reason for Visit/CC: patient here for a comprehensive eye exam. Current glasses distance is a little blurry, reading isn't bad uses artificial tears BID - eyes feel better, doesn't need to rub eyes as much OHx: 1. 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 Dry Eyes OU 3. Nuclear Sclerotic Cataracts OU 4. Epiretinal Membrane OD 5. 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 Refractive error with presbyopia OU (-) Pain: (-) ORTEGA: (-) Diplopia: (-) Flashes: (-) Floaters: (-) Amaurosis Fugax/Tia's: (-) Eye Injury: (-) Eye Surgery: (-) TBI (-) FOHx: MHx: Code Description Z77.29 Exposure to potentially hazardous substance ([facility] [id number]) I24.9 Ischemic heart disease ([facility] [id number]) E78.00 Hypercholesterolemia ([facility] [id number]) N40.0 Benign prostatic hyperplasia ([facility] [id number]) H93.13 Tinnitus ([facility] [id number]) H90.3 Hearing loss ([facility] [id number]) M54.50 Low back pain ([facility] [id number]) M54.2 Neck pain ([facility] [id number]) I10. Essential hypertension ([facility] [id number]) K21.9 Gastroesophageal reflux disease ([facility] [id number]) Other: SYSTEMIC MEDICATIONS/OCULAR MEDICATIONS: Active and Recently Outpatient Medications (excluding Supplies): Inactive Outpatient Medications Status 1) CARBOXYMETHYLCELLULOSE NA 0.5% OPH SOLN INSTILL 1 DROP INTO EACH EYE FOUR TIMES DAILY NEEDED Indication: [...] BY MOUTH EVERY DAY ACTIVE 7) Non-VA GLUCOSAMINE/CHONDROITIN CAP/TAB ONE BY MOUTH EVERY ACTIVE DAY 8) Non-VA LOSARTAN 100MG TAB 100MG BY MOUTH ONCE DAILY ACTIVE 9) Non-VA MAGNESIUM OXIDE 420MG TAB 420MG BY MOUTH EVERY DAY ACTIVE 10) Non-VA METOPROLOL TARTRATE 25MG TAB 25MG BY MOUTH TWICE ACTIVE DAILY 11) Non-VA OMEPRAZOLE 20MG EC CAP 40MG BY MOUTH EVERY MORNING 30 ACTIVE MINUTES BEFORE BREAKFAST 12) Non-VA TRAMADOL HCL 50MG TAB 50MG BY MOUTH EVERY 6 HOURS ACTIVE NEEDED 13 Total Medications ALLERGIES: PRAVASTATIN, ZETIA LAST BP: 138/72 (10/24/2024 08:22) PERTINENT LABS: HEMOGLOBIN A1C; BLOOD Leti. Date: 04/08/23 07:41 Test Name Result Units Range HEMOGLOBIN A1C 5.4 % 4.0 - 5.6 Current Rx with last BCVA: OD: +1.25 -1.25 x 115 20/20- OS: +1.00 -1.75 x 075 20/20 Add: +2.50 DVA ( )sc ( x )cc OD 20/20-1 blurry OS 20/20 blurry Pupils: PERRL (-)APD EOM: Full all meridia OU, (-) pain/diplopia Confrontation Visual Kumar: Full all meridia OU Subjective: OD +1.25 -1.50 x 115 20/20-1 OS +1.25 -1.75 x 075 20/20 Add: +2.50 20/20 OU TF in [place], preferred less plus Final Rx: OD +1.00 -1.50 x 115 20/20-1 OS +1.00 -1.75 x 075 20/20 Add: +2.50 SLE: Lids/Lashes: dermatochalasis OU Conjunctiva: white and quiet OU Corneas: Harry-stahli line OU Iris: flat and clear OD, small nevus 7:00 OS Anterior Chamber: deep and quiet OU Angles: open OU Lens: 1+ NS OU, 1+ ACC OU TAP @ 7:40am Mo, rechecked with iCare OD 23,18 mm Hg OS 16,17 mm Hg Tmax 28/26 Previous Pachymetry: OD 575 OS 582 Previous Gonioscopy: open to CB 360 OU without angle recession or excessive pigment OU Dilating Drops: 1 gtt 1% Tropicamide OU, 2.5% phenylephrine OU (Pt. ed. on side effects) Vitreous: Syneresis OU C/D (Size and Rim Description) OD 0.40 pink & healthy OS 0.40 pink & healthy Macula OD flat and clear OS flat and clear A/V: normal caliber OU Posterior Pole: few scattered drusen in arcades OD, 1DD choroidal nevus OS inferior arcade, tr ERM OS Periphery: Flat and intact (-)holes, tears, detachments 360 OU 2.5DD x 2.5DD choroidal nevus inferior temp OD with overlying drusen Assessment/Plan: 1. choroidal nevus OU - OS previously noted and stable. OD nevus not previously documented but with significant overlying drusen which indicates likely longstanding and stable. Pt ed on findings. Will recheck in 6 months. 2. borderline ocular hypertension OD - some prior measurements that were high OU (Tmax 28/26). Pachymetry thicker than average OU. Cupping appears stable OU. Prior RNFL OCT WNL OU and visual kumar clear OU. Concern for glaucoma remains low. Will continue to monitor IOP. 3. Combined cataracts OU, not visually significant. Monitor 4. dry eye OU - continue artificial tears prn 5. hyperopia OU, regular astigmatism OU, presbyopia OU - order new PALs clear and sun RTC 6 months or earlier PRN Total time: 35 minutes *This includes time spent before the visit reviewing the chart, time spent during visit (not including procedures coded separately), and time spent on documentation after the visit on the same date of service. Patient Education: Glaucoma: Patient was educated regarding [...] the patient's ability to participate in testing. patient offered and declined printed medication list Medication Reconciliation: Outpatient: Has the patient been taking medications as documented in the EMLR? YES: The patient has been taking medications as documented in the EMLR. Essential Medication List for Review used to complete this medication reconciliation. INCLUDED IN THIS LIST: Alphabetical list of active outpatient prescriptions dispensed from this VA (local) and dispensed from another VA or [...] Remote Allergy/ADR Data available for this patient [facility] PRAVASTATIN [facility] ZETIA Med Recon NoGlossary (Tool #1) INCLUDED IN THIS LIST: Alphabetical list of active outpatient prescriptions dispensed from this VA (local) and dispensed from another VA or DoD facility (remote) as well as inpatient orders (local pending and active), local clinic medications, locally documented non-VA medications, and local prescriptions that have or been discontinued in the past 90 days. Non-VA Meds Last Documented On: Apr 24, 2024 NOTE The display of VA prescriptions dispensed from another VA or DoD facility (remote) is limited to active outpatient prescription entries matched to National Drug File at the originating site and may not include some items such as investigational drugs, compounds, etc. NOT INCLUDED IN THIS LIST: Medications self-entered by the patient into personal health records (i.e. [employer]) are NOT included in this list. Non-VA medications documented outside this [place], remote inpatient orders (regardless of status) and remote clinic medications are NOT included in this list. The patient and provider must always discuss medications the patient is taking, regardless of where the medication was dispensed or obtained. -------- Non-VA ACETAMINOPHEN 325MG TAB TAKE TWO TABLETS BY MOUTH EVERY 6 HOURS Non-VA AMLODIPINE BESYLATE 5MG TAB TAKE ONE TABLET BY MOUTH ONCE DAILY Non-VA ASPIRIN 81MG EC TAB TAKE ONE TABLET BY MOUTH EVERY DAY Non-VA ATORVASTATIN CALCIUM 40MG TAB TAKE ONE-HALF TABLET BY MOUTH EVERY OTHER DAY Jan 21, 2022 Medication prescribed by Non-VA provider. OUTPT CARBOXYMETHYLCELLULOSE NA 0.5% OPH SOLN (Status = ) INSTILL 1 DROP INTO EACH EYE FOUR TIMES DAILY NEEDED FOR DRY EYE Rx# [id number] Last Released: 10/19/24 Qt/Days Supply: Rx Expiration Date: 02/17/25 Refills Remainin Indication: FOR DRY EYE Non-VA CHOLECALCIF 25MCG (D3-1,000UNIT) TAB TAKE ONE TABLET BY MOUTH EVERY DAY Non-VA CYANOCOBALAMIN TAB TAKE 3000MG BY MOUTH EVERY DAY Non-VA GLUCOSAMINE/CHONDROITIN CAP/TAB TAKE ONE BY MOUTH EVERY DAY Non-VA LOSARTAN 100MG TAB TAKE ONE TABLET [...] TABLET BY MOUTH EVERY 6 HOURS NEEDED -------- SUPPLIES -------- /myles/ RANDOLPH ESPINOZA OD Water Purification Chemist Signed: 02/21/2025 16:06 RANDOLPH ESPINOZA [facility] Feb 21, 2025 07:23 AM OPTOMETRY NOTE: LOCAL TITLE: OPTOMETRY NOTE STANDARD TITLE: OPTOMETRY NOTE DATE OF NOTE: FEB 21, 2025@07:23 ENTRY DATE: FEB 21, 2025@07:23:59 AUTHOR: RANDOLPH ESPINOZA EXP COSIGNER: URGENCY: STATUS: COMPLETED OPTOMETRY NOTE Has ADDENDA 74 WHITE MALE NOT OR Last eye exam: 02/17/24 Reason for Visit/CC: patient here for a comprehensive eye exam. Current glasses distance is a little blurry, reading isn't bad uses artificial tears BID - eyes feel better, doesn't need to rub eyes as much OHx: 1. 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 Dry Eyes OU 3. Nuclear Sclerotic Cataracts OU 4. Epiretinal Membrane OD 5. 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 Refractive error with presbyopia OU (-) Pain: (-) ORTEGA: (-) Diplopia: (-) Flashes: (-) Floaters: (-) Amaurosis Fugax/Tia's: (-) Eye Injury: (-) Eye Surgery: (-) TBI (-) FOHx: MHx: Code Description Z77.29 Exposure to potentially hazardous substance ([facility] [id number]) I24.9 Ischemic heart disease ([facility] [id number]) E78.00 Hypercholesterolemia ([facility] [id number]) N40.0 Benign prostatic hyperplasia ([facility] [id number]) H93.13 Tinnitus ([facility] [id number]) H90.3 Hearing loss ([facility] [id number]) M54.50 Low back pain ([facility] [id number]) M54.2 Neck pain ([facility] [id number]) I10. Essential hypertension ([facility] [id number]) K21.9 Gastroesophageal reflux disease ([facility] [id number]) Other: SYSTEMIC MEDICATIONS/OCULAR MEDICATIONS: Active and Recently Outpatient Medications (excluding Supplies): Inactive Outpatient Medications Status 1) CARBOXYMETHYLCELLULOSE NA 0.5% OPH SOLN INSTILL 1 DROP INTO EACH EYE FOUR TIMES DAILY NEEDED Indication: [...] BY MOUTH EVERY DAY ACTIVE 7) Non-VA GLUCOSAMINE/CHONDROITIN CAP/TAB ONE BY MOUTH EVERY ACTIVE DAY 8) Non-VA LOSARTAN 100MG TAB 100MG BY MOUTH ONCE DAILY ACTIVE 9) Non-VA MAGNESIUM OXIDE 420MG TAB 420MG BY MOUTH EVERY DAY ACTIVE 10) Non-VA METOPROLOL TARTRATE 25MG TAB 25MG BY MOUTH TWICE ACTIVE DAILY 11) Non-VA OMEPRAZOLE 20MG EC CAP 40MG BY MOUTH EVERY MORNING 30 ACTIVE MINUTES BEFORE BREAKFAST 12) Non-VA TRAMADOL HCL 50MG TAB 50MG BY MOUTH EVERY 6 HOURS ACTIVE NEEDED 13 Total Medications ALLERGIES: PRAVASTATIN, ZETIA LAST BP: 138/72 (10/24/2024 08:22) PERTINENT LABS: HEMOGLOBIN A1C; BLOOD Leti. Date: 04/08/23 07:41 Test Name Result Units Range HEMOGLOBIN A1C 5.4 % 4.0 - 5.6 Current Rx with last BCVA: OD: +1.25 -1.25 x 115 20/20- OS: +1.00 -1.75 x 075 20/20 Add: +2.50 DVA ( )sc ( x )cc OD 20/20-1 blurry OS 20/20 blurry Pupils: PERRL (-)APD EOM: Full all meridia OU, (-) pain/diplopia Confrontation Visual Kumar: Full all meridia OU Subjective: OD +1.25 -1.50 x 115 20/20-1 OS +1.25 -1.75 x 075 20/20 Add: +2.50 20/20 OU TF in [place], preferred less plus Final Rx: OD +1.00 -1.50 x 115 20/20-1 OS +1.00 -1.75 x 075 20/20 Add: +2.50 SLE: Lids/Lashes: dermatochalasis OU Conjunctiva: white and quiet OU Corneas: Harry-stahli line OU Iris: flat and clear OD, small nevus 7:00 OS Anterior Chamber: deep and quiet OU Angles: open OU Lens: 1+ NS OU, 1+ ACC OU TAP @ 7:40am Mo, rechecked with iCare OD 23,18 mm Hg OS 16,17 mm Hg Tmax 28/26 Previous Pachymetry: OD 575 OS 582 Previous Gonioscopy: open to CB 360 OU without angle recession or excessive pigment OU Dilating Drops: 1 gtt 1% Tropicamide OU, 2.5% phenylephrine OU (Pt. ed. on side effects) Vitreous: Syneresis OU C/D (Size and Rim Description) OD 0.40 pink & healthy OS 0.40 pink & healthy Macula OD flat and clear OS flat and clear A/V: normal caliber OU Posterior Pole: few scattered drusen in arcades OD, 1DD choroidal nevus OS inferior arcade, tr ERM OS Periphery: Flat and intact (-)holes, tears, detachments 360 OU 2.5DD x 2.5DD choroidal nevus inferior temp OD with overlying drusen Assessment/Plan: 1. choroidal nevus OU - OS previously noted and stable. OD nevus not previously documented but with significant overlying drusen which indicates likely longstanding and stable. Pt ed on findings. Will recheck in 6 months. 2. borderline ocular hypertension OD - some prior measurements that were high OU (Tmax 28/26). Pachymetry thicker than average OU. Cupping appears stable OU. Prior RNFL OCT WNL OU and visual kumar clear OU. Concern for glaucoma remains low. Will continue to monitor IOP. 3. Combined cataracts OU, not visually significant. Monitor 4. dry eye OU - continue artificial tears prn 5. hyperopia OU, regular astigmatism OU, presbyopia OU - order new PALs clear and sun RTC 6 months or earlier PRN Total time: 35 minutes *This includes time spent before the visit reviewing the chart, time spent during visit (not including procedures coded separately), and time spent on documentation after the visit on the same date of service. Patient Education: Glaucoma: Patient was educated regarding [...] the patient's ability to participate in testing. patient offered and declined printed medication list Medication Reconciliation: Outpatient: Has the patient been taking medications as documented in the EMLR? YES: The patient has been taking medications as documented in the EMLR. Essential Medication List for Review used to complete this medication reconciliation. INCLUDED IN THIS LIST: Alphabetical list of active outpatient prescriptions dispensed from this VA (local) and dispensed from another VA or [facility] facility (remote) as well as inpatient orders [...] Remote Allergy/ADR Data available for this patient [facility] PRAVASTATIN [facility] [place]ET[place] Med Recon Rosaura (Tool #1) INCLUDED IN THIS LIST: Alphabetical list of active outpatient prescriptions dispensed from this [place] (local) and dispensed from another [place] or [facility] facility (remote) as well as inpatient orders (local pending and active), local clinic medications, locally documented non-VA medications, and local prescriptions that have or been discontinued in the past 90 days. Non-VA Meds Last Documented On: Apr 24, 2024 NOTE The display of VA prescriptions dispensed from another [place] or [facility] facility (remote) is limited to active outpatient prescription entries matched to National Drug File at the originating site and may not include some items such as investigational drugs, compounds, etc. NOT INCLUDED IN THIS LIST: Medications self-entered by the patient into personal health records (i.e. [employer]) are NOT included in this list. Non-VA medications documented outside this [place], remote inpatient orders (regardless of status) and remote clinic medications are NOT included in this list. The patient and provider must always discuss medications the patient is taking, regardless of where the medication was dispensed or obtained. -------- Non-VA ACETAMINOPHEN 325MG TAB TAKE TWO TABLETS BY MOUTH EVERY 6 HOURS Non-VA AMLODIPINE BESYLATE 5MG TAB TAKE ONE TABLET BY MOUTH ONCE DAILY Non-VA ASPIRIN 81MG EC TAB TAKE ONE TABLET BY MOUTH EVERY DAY Non-VA ATORVASTATIN CALCIUM 40MG TAB TAKE ONE-HALF TABLET BY MOUTH EVERY OTHER DAY Jan 21, 2022 Medication prescribed by Non-VA provider. OUTPT CARBOXYMETHYLCELLULOSE NA 0.5% OPH SOLN (Status = ) INSTILL 1 DROP INTO EACH EYE FOUR TIMES DAILY NEEDED FOR DRY EYE Rx# [id number] Last Released: 10/19/24 Qty/Days Supply: Rx Expiration Date: 02/17/25 Refills Remainin Indication: FOR DRY EYE Non-VA CHOLECALCIF 25MCG (D3-1,000UNIT) TAB TAKE ONE TABLET BY MOUTH EVERY DAY Non-VA CYANOCOBALAMIN TAB TAKE 3000MG BY MOUTH EVERY DAY Non-VA GLUCOSAMINE/CHONDROITIN CAP/TAB TAKE ONE BY MOUTH EVERY DAY Non-VA LOSARTAN 100MG TAB TAKE ONE TABLET [...] TABLET BY MOUTH EVERY 6 HOURS NEEDED -------- SUPPLIES -------- /rafi ESPINOZA OD Water Purification Chemist Signed: 02/21/2025 16:06 02/21/2025 ADDENDUM STATUS: COMPLETED please assist in ordering duplicate glasses: RX INFORMATION OD +1.00 -1.50 X115 Add:+2.50 Pzm:0.00 Dir: Prz2:0.00 Dir2: OS +1.00 -1.75 X75 Add:+2.50 Pzm:0.00 Dir: Prz2:0.00 Dir2: FITTING INFORMATION FPD: NPD: [place]:R:33 L:31 SEG HT:R:20 L:20 Tint:None Shade:None VA Billable Items FRAME: ASHLEY ZALDIVAR 145 Right Lens: PLASTIC VA PROGRESSIVE 1.498 PLASTIC CR39 Left Lens: PLASTIC VA PROGRESSIVE 1.498 PLASTIC CR39 KLEAR ANTI-REFLECTIVE COATING RX INFORMATION OD +1.00 -1.50 X115 Add:+2.50 Pzm:0.00 Dir: Prz2:0.00 Dir2: OS +1.00 -1.75 X75 Add:+2.50 Pzm:0.00 Dir: Prz2:0.00 Dir2: FITTING INFORMATION FPD: NPD: [place]:R:33 L:31 SEG HT:R:20 L:20 Tint:OTERO Shade:3 VA Billable Items FRAME: ASHLEY ZALDIVAR Right Lens: PLASTIC VA PROGRESSIVE 1.498 PLASTIC CR39 Left Lens: PLASTIC VA PROGRESSIVE 1.498 PLASTIC CR39 UV400 SOLID TINT /myles/ RANDOLPH ESPINOZA OD Water Purification Chemist Signed: 02/21/2025 16:07 Receipt Acknowledged By: 02/22/2025 09:44 /rafi TURNER OPTOMETRY TECH 02/22/2025 ADDENDUM STATUS: COMPLETED Optometry Health Glue Sprayer ordered patient 2 pair(s) of PAL eyeglasses on 02/21/2025 as directed by provider. OPT HT entered consult(s) for order on behalf of provider. /myles/ STANTON TURNER OPTOMETRY TECH Signed: 02/22/2025 09:47 RANDOLPH ESPINOZA [facility]
--- OUTSIDE RECORDS SUMMARY | 2025-02-21 05:00 | XMS_ITS ---
Author Name [facility] [place] [facility] [place] Address [address] [place] [address] Care Team Providers Care Floor Tech Name Role Phone CAMILLA SOLIZ Primary Care [...] SUPPLEMEN DG MEDEX CORE Nov 08, 2019 [id number] LIZA MAYNARD PATIENT [place] SUPPLEMEN DG MEDEX SAPPH HUEY Nov 08, 2022 [id number] LIZA MAYNARD PATIENT [place] SUPPLEMEN DG WTW MDX B HEAR AND V Nov 08, 2019 [id number] LIZA MAYNARD PATIENT CIGNA PREFERRED PROVIDER ORGANIZAT ION (PPO) BUILD ING SERVI CE Nov 08, 2011 [id number] [phone] LIZA MAYNARD PATIENT EXPRESS SCRIPTS ([id number]) PRESCRIPT ION May 08, 2007 [id number] LIZA MAYNARD PATIENT MEDICARE (WNR) MEDICARE (M) PART B Jun 08, 2015 PART B [id number] LIZA MAYNARD PATIENT MEDICARE (WNR) MEDICARE (M) PART A Jun 08, 2015 PART A [id number] LIZA MAYNARD PATIENT MEDICARE (WNR) MEDICARE (M) PART B Jun 08, 2015 PART B [id number] LIZA MAYNARD PATIENT MEDICARE (WNR) MEDICARE (M) PART A Jun 08, 2015 PART A [id number] LIZA MAYNARD PATIENT MEDICARE (WNR) MEDICARE (M) PART B Jun 08, 2015 PART B [id number] [phone] LIZA MAYNARD PATIENT MEDICARE (WNR) MEDICARE (M) PART A Jun 08, 2015 PART A [id number] LIZA MAYNARD PATIENT Selected Encounter This section includes the information on record at [place] for the Encounter. 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 Date/Time Primary/Secondary Diagnosis Diagnosis Name Provider Source May 04, 2025 01:38 PM PRIMARY Benign neoplasm of right choroid MERHAR,RANDOLPH B [facility] [place] [facility] May 04, 2025 01:38 PM SECONDARY Benign neoplasm of left choroid MERHAR,RANDOLPH B [facility] Plan of Treatment: Future Appointments (+ 6 months) and Future Tests (+/- 45 days) The Plan of Treatment section includes future care activities for the patient from all [place] treatmentfacilities. This section includes future appointments and future orders which are active, pending or scheduled. Future Appointments This section includes appointments that were scheduled to occur 6 months from the date of the Encounter, up to a maximum of 20 appointments. The data comes from all [place] treatment facilities. Appointment Date/Time Appointment Type Appointme nt Facility Name Apr 17, 2025 10:00 AM AMBULATORY - [facility] MEDICIN E [facility] [place] [facility] Apr 23, 2025 08:30 AM AMBULATORY - MEDICINE [facility] [place] [facility] Social History: Smoking Status (Most current) and Tobacco Use (All prior to encounter date) This section includes the most current, and the historical, smoking and tobacco- related health factors from the [place] facility where the Encounter took place. Current Smoking Status This section includes the most current smoking, or tobacco-related health factor, from the [place] facility where the Encounter took place. Date/Time Current Smoking Status Comment [facility] Oct 24, 2024 08:00 AM VA-TOBACCO USE FOR CITLALLI CIGARETTES [place] [facility] [place] [facility] Tobacco Use History This section includes a history of the smoking, or tobacco-related health factors, that were collected on or before the date of the Encounter. The data comes from the [place] facility where the Encounter took place. Date/Time Smoking Status/Tobac co Use Comment [facility] Oct 24, 2024 08:00 AM VA-TOBACCO USE FORMER CIGARETTES [facility] [place] [facility] Oct 27, 2023 09:00 AM VA-TOBACCO FORMER USER [place] [facility] [place] [facility] Oct 27, 2023 09:00 AM VA-TOBACCO QUIT 15 YRS OR MORE [facility] [place] [facility] Oct 13, 2022 09:30 AM VA-TOBACCO FORMER USER [facility] [place] [facility] Oct 13, 2022 09:30 AM VA-TOBACCO QUIT 15 YRS OR MORE [place] [facility] [place] [facility] Sep 25, 2021 09:00 AM VA-TOBACCO FORMER USER [facility] [place] [facility] Sep 25, 2021 09:00 AM VA-TOBACCO QUIT 15 YRS OR MORE [facility] [place] [facility] May 23, 2019 08:36 AM VA-TOBACCO FORMER USER [facility] [place] [facility] May 23, 2019 08:36 AM VA-TOBACCO QUIT 15 YRS OR MORE [facility] [place] [facility] May 26, 2018 08:24 AM VA-TOBACCO NEVER USED [place] [facility] [place] [facility] May 26, 2018 07:54 AM QUIT TOBACCO USE > 7 YEARS AGO [facility] [place] [facility] Apr 19, 2017 08:50 AM QUIT TOBACCO USE > 7 YEARS AGO [facility] [place] [facility] Apr 15, 2016 09:36 AM QUIT TOBACCO USE > 7 YEARS AGO . [facility] [place] [facility] March 16, 2014 02:49 PM QUIT TOBACCO USE > 7 YEARS AGO quit 40 years ago [facility] Encounter Notes: All associated encounter notes This section contains the clinical notes associated to the Encounter. 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 The vasculature is of normal caliber. Macula is clear. There is a 2.5DDx2.5DD choroidal nevus inferior temp with overlying drusen OS: optic disc shows normal cupping with distinct margins and healthy rim tissue. The vasculature is of normal caliber. Macula is clear. 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 OD nevus not previously documented but with significant overlying drusen which indicates likely longstanding and stable. Pt ed on findings. Will recheck in 6 months. /myles/ RANDOLPH ESPINOZA OD Sales Demonstrator Signed: 02/21/2025 15:51 RANDOLPH ESPINOZA [facility]
--- OUTSIDE RECORDS SUMMARY | 2025-04-17 06:00 | XMS_ITS | Encounter Summary ---
Author Name [facility] [place] [facility] [place] [facility] [place] Address [address] [place] [address] Care Team Providers Care Adjunct Faculty Mathematics Department Name Role Phone CAMILLA SOLIZ Primary Care [...] SUPPLEMEN DG MEDEX CORE Nov 08, 2019 [id number] LIZA MAYNARD PATIENT [place] SUPPLEMEN DG MEDEX SAPPH HUEY Nov 08, 2022 [id number] LIZA MAYNARD PATIENT [place] SUPPLEMEN DG WTW MDX B HEAR AND V Nov 08, 2019 [id number] LIZA MAYNARD PATIENT CIGNA PREFERRED PROVIDER ORGANIZAT ION (PPO) BUILD ING SERVI CE Nov 08, 2011 [id number] [phone] LIZA MAYNARD PATIENT EXPRESS SCRIPTS ([id number]) PRESCRIPT ION May 08, 2007 [id number] [phone] LIZA MAYNARD PATIENT MEDICARE (WNR) MEDICARE (M) PART B Jun 08, 2015 PART B [id number] [phone] LIZA MAYNARD PATIENT MEDICARE (WNR) MEDICARE (M) PART A Jun 08, 2015 PART A [id number] [phone] LIZA MAYNARD PATIENT MEDICARE (WNR) MEDICARE (M) PART B Jun 08, 2015 PART B [id number] LIZA MAYNARD PATIENT MEDICARE (WNR) MEDICARE (M) PART A Jun 08, 2015 PART A [id number] LIZA MAYNARD PATIENT MEDICARE (WNR) MEDICARE (M) PART B Jun 08, 2015 PART B [id number] [phone] LIZA MAYNARD PATIENT MEDICARE (WNR) MEDICARE (M) PART A Jun 08, 2015 PART A [id number] LIZA MAYNARD PATIENT Selected Encounter This section includes the information on record at [place] for the Encounter. Date/Time Encounter Type Encounter Description Reason Provider Source Apr 17, 2025 10:00 AM HEARING AID REPAIR/MODIFYING AUDIOLOGY ICD-10-CM Z46.1 Encounter for fitting and adjustment of hearing aid AVA ALLEN Encounter Template Text not used by [place] Assessments - Encounter Diagnoses This section includes the primary and secondary diagnoses documented for the Encounter. Date/Time Primary/Secondary Diagnosis Diagnosis Name Provider Source Apr 17, 2025 10:06 AM PRIMARY Encounter for fitting and adjustment of hearing aid ANGELES GILLILAND [facility] Apr 17, 2025 10:06 AM SECONDARY Sensorineural hearing loss, bilateral ANGELES GILLILAND [facility] Plan of Treatment: Future Appointments (+ 6 months) and Future Tests (+/- 45 days) The Plan of Treatment section includes future care activities for the patient from all [place] treatmentfacilities. This section includes future appointments and future orders which are active, pending or scheduled. Future Appointments This section includes appointments that were scheduled to occur 6 months from the date of the Encounter, up to a maximum of 20 appointments. The data comes from all [place] treatment facilities. Appointment Date/Time Appointment Type Appointme nt Facility Name Apr 23, 2025 08:30 AM AMBULATORY - MEDICINE [place] [facility] [place] [facility] Sep 24, 2025 08:30 AM AMBULATORY - MEDICINE [facility] [place] [facility] Oct 15, 2025 08:30 AM AMBULATORY - RE[facility]AB MEDICIN E [facility] Lab Results: +/- 30 days of the encounter This section includes the Chemistry and Hematology Lab Results on record with [place] for the patient. Radiology Reports and Pathology Reports are provided separately, in subsequent sections. Lab Results This section contains the Chemistry/Hematology Results that were resulted 30 days before or 30 daysafter the date of the Encounter. Date/Time Source Result Type Result - Unit Interpretation Reference Range Specimen Type Comment Apr 17, 2025 08:37 [facility] LIPID PANEL FASTING SERUM Specimen Type: SERUM No comment entered. Ordering Provider: CAMILLA SOLIZ Report Released Date/Time: Oct 24, 2024 08:21 AM Reporting [facility] [address] [address] Performing Lab: [facility] [address] [address] CHOLESTEROL 154 mg/dL TRIGLYCERIDE 233 mg/dL H 0-150 LDL calculated 68 mg/dL 0-129 CHOL/HDL 3.9 HDL CHOLESTEROL 39 mg/dL L >40 Apr 17, 2025 08:37 [facility] LIVER FUNCTION SERUM Specimen Type: SERUM No comment entered. Ordering Provider: CAMILLA SOLIZ Report Released Date/Time: Oct 24, 2024 08:21 AM Reporting [facility] [address] [facility] [address] Performing Lab: [facility] [address] PROTEIN,TOTAL 7.7 g/dL 6.4-8.3 ALBUMIN 4.9 g/dL H 3.2-4.6 ALKALINE PHOSPHATASE 94 U/L 40-150 AST 32 U/L 5-34 ALT 36 U/L 0-55 BILIRUBIN, TOTAL 1.7 mg/dL H 0.2-1.2 BILIRUBIN, DIRECT 0.4 mg/dL 0-0.5 Apr 17, 2025 08:37 AM [facility] BASIC METABOLIC PANEL (fasting) SERUM Specime n Type: SERUM No comment entered. Ordering Provider: CAMILLA SOLIZ Report Released Date/Time: Oct 24, 2024 08:21 AM Reporting Lab: [facility] [address] [facility] [address] Performing Lab: [facility] [address] [address] UREA NITROGEN 16 mg/dL 8-26 GLUCOSE 102 mg/dL H 65-100 SODIUM 140 mmol/L 136-145 POTASSIUM 5.4 mmol/L H 3.5-5.1 CHLORIDE 103 mmol/L 98-107 CO2 28 meq/L 23-31 CALCIUM 9.8 mg/dL 8.8-10 CREATININE, Serum 0.96 mg/dL 0.72-1.25 eGFR(CKD-EPI 2020) 82 mL/min >60 Social History: Smoking Status (Most current) and Tobacco Use (All prior to encounter date) This section includes the most current, and the historical, smoking and tobacco- related health factors from the [place] facility where the Encounter took place. Current Smoking Status This section includes the most current smoking, or tobacco-related health factor, from the [place] facility where the Encounter took place. Date/Time Current Smoking Status Comment [facility] Oct 24, 2024 08:00 AM VA-TOBACCO USE FOR CITLALLI CIGARETTES [facility] Tobacco Use History This section includes a history of the smoking, or tobacco-related health factors, that were collected on or before the date of the Encounter. The data comes from the [place] facility where the Encounter took place. Date/Time Smoking Status/Tobac co Use Comment Facility Oct 24, 2024 08:00 AM VA-TOBACCO USE FORMER CIGARETTES [facility] Oct 27, 2023 09:00 AM VA-TOBACCO FORMER USER [facility] Oct 27, 2023 09:00 AM ID-TOBACCO QUIT 15 YRS OR MORE [facility] Oct 13, 2022 09:30 AM VA-TOBACCO FORMER USER [facility] Oct 13, 2022 09:30 AM VA-TOBACCO QUIT 15 YRS OR MORE [facility] [place] [facility] Sep 25, 2021 09:00 AM VA-TOBACCO FORMER USER [facility] [place] [facility] Sep 25, 2021 09:00 AM VA-TOBACCO QUIT 15 YRS OR MORE [facility] [place] [facility] May 23, 2019 08:36 AM VA-TOBACCO FORMER USER [facility] [place] [facility] May 23, 2019 08:36 AM VA-TOBACCO QUIT 15 YRS OR MORE [facility] [place] [facility] May 26, 2018 08:24 AM VA-TOBACCO NEVER USED [facility] [place] [facility] May 26, 2018 07:54 AM QUIT TOBACCO USE > 7 YEARS AGO [facility] [place] [facility] Apr 19, 2017 08:50 AM QUIT TOBACCO USE > 7 YEARS AGO [facility] [place] [facility] Apr 15, 2016 09:36 AM QUIT TOBACCO USE > 7 YEARS AGO . [facility] [place] [facility] March 16, 2014 02:49 PM QUIT TOBACCO USE > 7 YEARS AGO quit 40 years ago [facility] Encounter Notes: All associated encounter notes This section contains the clinical notes associated to the Encounter. Date/Time Encounter Note(s) Provider Source Apr 17, 2025 07:23 AM AUDIOLOGY NOTE: LOCAL TITLE: AUDIOLOGY [facility] STANDARD TITLE: AUDIOLOGY NOTE DATE OF NOTE: APR 17, 2025@07:23 ENTRY DATE: APR 17, 2025@07:23:32 AUTHOR: GUILHERME GILLILAND COSIGNER: AVA ALLEN URGENCY: STATUS: COMPLETED April 17, 2025 History/Background: Cunningham was seen for a hearing aid follow up, unaccompanied. The Cunningham presented today for routine hearing aid maintenance. Hearing aids: Farhad EVOLV AI BTEs Serial Numbers: [id number] Battery size: Rechargeable Date Issued: 04/21/2024 Hearing aid check: Both hearing aids were cleaned and checked. Replaced size 4 thin tubes and yumiko covers. Biologic check was good. Otoscopy: Clear canals. The Cunningham was given several packs of desiccant pucks Plan: The will return in 6 months for routine hearing aid maintenance. /myles/ GUILHERME GILLILAND Audiology Health Buffing And Sueding Machine Operator Signed: 04/17/2025 10:09 /myles/ AVA Guo CCC-A CHIEF, AUDIOLOGY/DETECTIVE [place] Cosigned: 04/17/2025 10:43 GUILHERME GILLILAND [facility]
--- OUTSIDE RECORDS SUMMARY | 2025-04-23 04:30 | XMS_ITS | Encounter Summary ---
Author Name [facility] [place] [facility] [place] Address [address] [place] [address] Care Team Providers Care Ecosystem Ecology Professor Name Role Phone CAMILLA SOLIZ Primary Care [...] SUPPLEMEN DG MEDEX CORE Nov 08, 2019 [id number] LIZA MAYNARD PATIENT [place] SUPPLEMEN DG MEDEX SAPPH HUEY Nov 08, 2022 [id number] LIZA MAYNARD PATIENT [place] SUPPLEMEN DG WTW MDX B HEAR AND V Nov 08, 2019 [id number] LIZA MAYNARD PATIENT CIGNA PREFERRED PROVIDER ORGANIZAT ION (PPO) BUILD ING SERVI CE Nov 08, 2011 [id number] LIZA MAYNARD PATIENT EXPRESS SCRIPTS ([id number]) PRESCRIPT ION May 08, 2007 [id number] LIZA MAYNARD PATIENT MEDICARE (WNR) MEDICARE (M) PART B Jun 08, 2015 PART B [id number] [phone] LIZA MAYNARD PATIENT MEDICARE (WNR) MEDICARE (M) PART A Jun 08, 2015 PART A [id number] [phone] LIZA MAYNRAD PATIENT MEDICARE (WNR) MEDICARE (M) PART B Jun 08, 2015 PART B [id number] LIZA MAYNARD PATIENT MEDICARE (WNR) MEDICARE (M) PART A Jun 08, 2015 PART A [id number] LIZA MAYNARD PATIENT MEDICARE (WNR) MEDICARE (M) PART B Jun 08, 2015 PART B [id number] [phone] LIZA MAYNARD PATIENT MEDICARE (WNR) MEDICARE (M) PART A Jun 08, 2015 PART A [id number] LIZA MAYNARD PATIENT Selected Encounter This section includes the information on record at [place] for the Encounter. Date/Time Encounter Type Encounter Description Reason Provider Source Apr 23, 2025 08:30 AM OFFICE O/P EST MOD 30 MIN PRIMARY CARE/MEDICINE ICD-10-CM Z23 Encounter for immunization FURCOLO,CAMILLA E Encounter Template Text not used by [place] Assessments - Encounter Diagnoses This section includes the primary and secondary diagnoses documented for the Encounter. Date/Time Primary/Secondary Diagnosis Diagnosis Name Provider Source Apr 23, 2025 09:11 AM PRIMARY Encounter for immunization FURCOLO,CAMILLA [facility] [place] [facility] Apr 23, 2025 09:11 AM SECONDARY Acute ischemic heart disease, unspecified FURCOLO,CAMILLA [facility] [place] [facility] Apr 23, 2025 09:11 AM SECONDARY Benign prostatic hyperplasia without lower urinry tract symp FURCOLO,CAMILLA [facility] [place] [facility] Apr 23, 2025 09:11 AM SECONDARY Cervicalgia FURCOLO,CAMILLA [facility] [place] [facility] Apr 23, 2025 09:11 AM SECONDARY Contact with and exposure to other hazardous substances FURCOLO,CAMILLA [facility] [place] [facility] Apr 23, 2025 09:11 AM SECONDARY Essential (primary) hypertension FURCOLO,CAMILLA [facility] [place] [facility] Apr 23, 2025 09:11 AM SECONDARY Gastro-esophageal reflux disease without esophagitis FURCOLO,CAMILLA [facility] [place] [facility] Apr 23, 2025 09:11 AM SECONDARY Low back pain, unspecified FURCOLO,CAMILLA [facility] [place] [facility] Apr 23, 2025 09:11 AM SECONDARY Pure hypercholesterolem ia, unspecified FURCOLO,CAMILLA [facility] [place] [facility] Apr 23, 2025 09:11 AM SECONDARY Sensorineural hearing loss, bilateral FURCOLO,CAMILLA [facility] [place] [facility] Apr 23, 2025 09:11 AM SECONDARY Tinnitus, bilateral FURCOLO,CAMILLA [facility] [place] [facility] Plan of Treatment: Future Appointments (+ 6 months) and Future Tests (+/- 45 days) The Plan of Treatment section includes future care activities for the patient from [facility] [place] [facility] This section includes future appointments and future orders which are active, pending or scheduled. Future Appointments This section includes appointments that were scheduled to occur 6 months from the date of the Encounter, up to a maximum of 20 appointments. The data comes from all [place] treatment facilities. Appointment Date/Time Appointment Type Appointme nt Facility Name Sep 24, 2025 08:30 AM AMBULATORY - MEDICINE [facility] NTR [facility] Oct 15, 2025 08:30 AM AMBULATORY - REHAB MEDICIN E [facility] Oct 22, 2025 08:30 AM AMBULAT[facility] - [facility] Lab Results: +/- 30 days of the encounter This section includes the Chemistry and Hematology Lab Results on record with [place] for the patient. Radiology Reports and Pathology Reports are provided separately, in subsequent sections. Lab Results This section contains the Chemistry/Hematology Results that were resulted 30 days before or 30 daysafter the date of the Encounter. Date/Time Source Result Type Result - Unit Interpretation Reference Range Specimen Type Comment Apr 17, 2025 08:37 AM [facility] LIPID PANEL FASTING SERUM Specimen Type: SERUM No comment entered. Ordering Provider: CAMILLA SOLIZ Report Released Date/Time: Oct 24, 2024 08:21 AM Reporting Lab: [facility] [address] [facility] [address] Performing Lab: [address] [address] CHOLESTEROL 154 mg/dL TRIGLYCERIDE 233 mg/dL H 0-150 LDL calculated 68 mg/dL 0-129 CHOL/HDL 3.9 HDL CHOLESTEROL 39 mg/dL L >40 Apr 17, 2025 08:37 AM [facility] LIVER FUNCTION SERUM Specimen Type: SERUM No comment entered. Ordering Provider: CAMILLA SOLIZ Report Released Date/Time: Oct 24, 2024 08:21 AM Reporting Lab: [address] [address] Performing Lab: [address] [address] PROTEIN,TOTAL 7.7 g/dL 6.4-8.3 ALBUMIN 4.9 g/dL H 3.2-4.6 ALKALINE PHOSPHATASE 94 U/L 40-150 AST 32 U/L 5-34 ALT 36 U/L 0-55 BILIRUBIN, TOTAL 1.7 mg/dL H 0.2-1.2 BILIRUBIN, DIRECT 0.4 mg/dL 0-0.5 Apr 17, 2025 08:37 AM [facility] BASIC METABOLIC PANEL (fasting) SERUM Specime n Type: SERUM No comment entered. Ordering Provider: CAMILLA SOLIZ Report Released Date/Time: Oct 24, 2024 08:21 AM Reporting Lab: [facility] [address] [facility] [facility] [address] Performing Lab: [address] [address] UREA NITROGEN 16 mg/dL 8-26 GLUCOSE 102 mg/dL H 65-100 SODIUM 140 mmol/L 136-145 POTASSIUM 5.4 mmol/L H 3.5-5.1 CHLORIDE 103 mmol/L 98-107 CO2 28 meq/L 23-31 CALCIUM 9.8 mg/dL 8.8-10 CREATININE, Serum 0.96 mg/dL 0.72-1.25 eGFR(CKD-EPI 2020) 82 mL/min >60 Vital Signs: All taken on the encounter date This section contains inpatient and outpatient Vital Signs collected on the date of the Encounter. Date/Time Temperature Pulse Blood Pressure Respiratory Rate SP02 Pain Height Weight Body Mass Index Source Apr 23, 2025 08:37 AM 161/74 mm[Hg] [facility] Apr 23, 2025 08:30 AM 97.8 F 54 /min 16 /min 96 % 5 198 lb 32 [facility] Immunizations: All administered on the encounter date This section contains immunizations associated to the Encounter. Immunization Series Date Issued Administered By Site Reaction Lot Number CVX Code Drug Senior Oracle Adf Developer Comment(s) Source RSV, RECOMBINANT, PROTEIN SUBUNIT RSVPREF3, ADJUVANT RECONSTITUTED , 0.5 ML, PF Apr 23, 2025 SANDRA JALLOH LEFT DELTO ID [id number] [facility] Completed Series, ADMINISTERE D AT [place], [facility] Social History: Smoking Status (Most current) and Tobacco Use (All prior to encounter date) This section includes the most current, and the historical, smoking and tobacco- related health factors from the [place] facility where the Encounter took place. Current Smoking Status This section includes the most current smoking, or tobacco-related health factor, from the [place] facility where the Encounter took place. Date/Time Current Smoking Status Comment [facility] Oct 24, 2024 08:00 AM VA-TOBACCO USE FOR [place] CIGARETTES [facility] Tobacco Use History This section includes a history of the smoking, or tobacco-related health factors, that were collected on or before the date of the Encounter. The data comes from the [place] facility where the Encounter took place. Date/Time Smoking Status/Tobac co Use Comment [facility] Oct 24, 2024 08:00 AM VA-TOBACCO USE FORMER CIGARETTES [place] [facility] [place] [facility] Oct 27, 2023 09:00 AM VA-TOBACCO FORMER USER [place] [facility] [place] [facility] Oct 27, 2023 09:00 AM [place]-TO[place]ACCO QUIT 15 YRS OR MORE [facility] Oct 13, 2022 09:30 AM VA-TOBACCO FORMER USER [facility] [place] [facility] Oct 13, 2022 09:30 AM VA-TOBACCO QUIT 15 YRS OR MORE [facility] [place] [facility] Sep 25, 2021 09:00 AM VA-TOBACCO FORMER USER [facility] [place] [facility] Sep 25, 2021 09:00 AM VA-TOBACCO QUIT 15 YRS OR MORE [place] [facility] [place] [facility] May 23, 2019 08:36 AM VA-TOBACCO FORMER USER [facility] [place] [facility] May 23, 2019 08:36 AM VA-TOBACCO QUIT 15 YRS OR MORE [facility] [place] [facility] May 26, 2018 08:24 AM VA-TOBACCO NEVER USED [facility] [place] [facility] May 26, 2018 07:54 AM QUIT TOBACCO USE > 7 YEARS AGO [facility] [place] [facility] Apr 19, 2017 08:50 AM QUIT TOBACCO USE > 7 YEARS AGO [facility] [place] [facility] Apr 15, 2016 09:36 AM QUIT TOBACCO USE > 7 YEARS AGO . [facility] [place] [facility] March 16, 2014 02:49 PM QUIT TOBACCO USE > 7 YEARS AGO quit 40 years ago [place] [facility] [place] [facility] Encounter Notes: All associated encounter notes This section contains the clinical notes associated to the Encounter. Date/Time Encounter Note(s) Provider Source Apr 23, 2025 08:29 AM PHYSICIAN NOTE: LOCAL TITLE: MD NOTE STANDARD TITLE: PHYSICIAN NOTE DATE OF NOTE: APR 23, 2025@08:29 ENTRY DATE: APR 23, 2025@08:29:32 AUTHOR: CAMILLA SOLIZ COSIGNER: URGENCY: STATUS: MADISON GARCIA is a 74 year old WHITE MALE who is being seen today in primary care for routine follow up. CARE TEAM Community Primary Care Provider: Lexie Marks (retired- to be re- assigned) [place] Specialists: audiology [place] Specialists: Cardiology: Dr. Sanjana Barba urology: Dr. Van HISTORY PERIOD OF SERVICE - [place] [facility] CONNECTED % - 10 Rated Disabilities: TINNITUS (10%-SC) IMPAIRED HEARING (0%-SC) HISTORY OF PRESENT ILLNESS Patient presents today for routine follow-up. doing well overall- no setbacks home BP readings sligthly elevate. will be seeing his outside PCP in upcoming months RELEVANT PAST MEDICAL HISTORY Active problems - Computerized Problem List is the source for the followin. Exposure to potentially hazardous substance ([facility] [id number]) Entered automatically through [employer] Problem List documentation program 2. Ischemic heart disease S/p drug eluting Sent in [facility] on 03/28/19 3. Hypercholesterolemia able to tolerate low dose atorvastatin 20 mg every other day 4. Benign prostatic hyperplasia 5. Tinnitus 6. Hearing loss (SNOMED CT 21854513) 7. Low back pain (SNOMED CT 466966277) chronic in nature, uses tramadol sparingly only 1-2 times per year with flare up 8. Neck pain (SNOMED CT 08210662) 9. Essential hypertension (SNOMED CT 74725757) 10. 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 Exercise: walking 6-7 acres of property- active ALLERGIES ATORVASTATIN, PRAVASTATIN, ZETIA MEDICATIONS Active and Recently Outpatient Medications (excluding Supplies): [...] 6 HOURS ACTIVE NEEDED 13 Total Medications REVIEW OF SYMPTOMS POSITIVE FOR: [...] - - - - - - B/P: 161/74 (04/23/2025 08:37) pulse: 54 (04/23/2025 08:30) resp: 16 (04/23/2025 08:30) temp: 97.8 F [36.6 C] (04/23/2025 08:30) Ht: 66 in [167.6 cm] (04/22/2023 09:21) Wgt: 198 lb [89.81 kg] (04/23/2025 08:30) BMI: BMI: 32.0 Exam: - - - - - - - General: A&O x 3, no acute distress, normal affect and mood CV: RRR S1S2, no murmur Resp: LCTA bilat, no wheezing, rales or rhonchi Extremities: normal movement of extremities, normal gait, normal strength no LE edema RECENT LABS LAB CHEMISTRY & HEMATOLOGY Collection DT Specimen Test Name Result Units Ref Range 04/17/2025 08:37 SERUM CALCIUM 9.8 mg/dL 8.8 - 10 CREATININE, Serum 0.96 mg/dL 0.72 - 1.25 eGFR(CKD-EPI 2020 82 mL/min Ref: >=60 SODIUM 140 mmol/L 136 - 145 POTASSIUM 5.4 H mmol/L 3.5 - 5.1 CHLORIDE 103 mmol/L 98 - 107 CO2 28 mEq/L 23 - 31 UREA NITROGEN 16 mg/dL 8 - 26 GLUCOSE 102 H mg/dL 65 - 100 PROTEIN,TOTAL 7.7 g/dL 6.4 - 8.3 ALBUMIN 4.9 H g/dL 3.2 - 4.6 ALK REBEKAH 94 U/L 40 - 150 AST 32 U/L 5 - 34 BILIRUBIN, TOTAL 1.7 H mg/dL 0.2 - 1.2 BILIRUBIN, DIRECT 0.4 mg/dL 0 - 0.5 CHOLESTEROL 154 mg/dL <7 - 199 TRIGLYCERIDE 233 H mg/dL 0 - 150 LDL calculated 68 mg/dL 0 - 129 CHOL/HDL 3.9 ALT 36 U/L 0 - 55 HDL CHOLESTEROL 39 L mg/dL Ref: >=40 ASSESSMENT AND PLAN Active problems - Computerized Problem List is the source for the followin. Exposure to potentially hazardous substance ([facility] [id number]) Entered automatically through [employer] Problem List documentation program 2. Ischemic heart disease S/p drug eluting Sent in [facility] on 03/28/19. no angina- walks his 4[place] acre property / uphill daily 3. Hypercholesterolemia able to tolerate low dose atorvastatin 20 mg every other day 4. Benign prostatic hyperplasia- not on any meds- sees Dr. Van yearly- stable PSA 5. Tinnitus 6. Hearing loss (SNOMED CT 79140303) 7. Low back pain (SNOMED CT 160217669) chronic in nature, uses acetaminophen BID, tramadol sparingly only 1-2 times per year with flare up 8. Neck pain (SNOMED CT 92534690) 9. Essential hypertension (SNOMED CT 77360781)- mildly elevated today- seeing new PCP in upcoming month, all meds through PCP- recommend switching losartan to valsartan. advised NO EXTRA potassium- has been taking some supplements 10. Gastroesophageal reflux disease (SNOMED CT 209368840) HEALTH MAINTENANCE Colonoscopy - stool cards- given Abdominal Aortic Aneurysm Screening - done throught pcp Prostate screening - 2023 Tetanus: due every 10 years Pneumonia Vacccine: Flu Vaccine: due yearly Covid Vaccine: due yearly FOLLOW UP 6 months with labs VISIT TYPE: a MODERATE complexity visit where 30 minutes was spent in direct patient care, review of records and documentation. HTN Assess for Elevated BP>=140/90: Other Reason: outside pcp manages medications /es/ CAMILLA FURCOLO, D.O. PHYSICIAN Signed: 04/23/2025 09:11 CAMILLA SOLIZ [facility] [place] Apr 23, 2025 08:28 AM PREVENTIVE MEDICINE NURSING NOTE: LOCAL TITLE: CLINICAL REMINDERS/NURSING STANDARD TITLE: PREVENTIVE MEDICINE NURSING NOTE DATE OF NOTE: APR 23, 2025@08:28 ENTRY DATE: APR 23, 2025@08:28:49 AUTHOR: SANDRA JALLOH EXP COSIGNER: URGENCY: STATUS: COMPLETED Advance Directive Screen MH AD: Patient has an up-to-date Advance Directive at an outside, non-va facility and was asked to forward a copy to his/her clinician. Homelessness/Food Insecurity Screen: In the past 2 months, have you been living in stable housing that you own, rent, or stay in as part of a household? Yes - Living in stable housing. Are you worried or concerned that in the next 2 months you may NOT have stable housing that you own, rent, or stay in as part of a household? No - Not worried about housing near future [facility] [place] reports the following: Within the past 12 months, you worried whether your food would run out before you got money to buy more. Never true Within the past 12 months, the food you bought just didn't last and you didn't have money to get more. Never true RSV Immunization: Respiratory Syncytial Virus (RSV) Vaccine: RSV vaccine administered today. Administered: RSV, RECOMBINANT, PROTEIN SUBUNIT RSVPREF3, ADJUVANT RECONSTITUTED, 0.5 ML, PF Date Administered: Apr 23, 2025 08:30 Series: Complete Senior Oracle Adf Developer: [employer] Lot: [id number] Exp Date: Sep 26, 2025 [facility]: [id number] Admin Route/Site: INTRAMUSCULAR/LEFT DELTOID Dosage: 0.5mL Vaccine Information Statement(s): RSV (RESPIRATORY SYNCYTIAL VIRUS) VACCINE VIS Dec 08, 2024 ([facility]INC[facility]IAN) Order By: Policy Administered By: Sandra Jalloh Vaccine Information Sheet (VIS) was given to the patient/caregiver, education regarding adverse reactions was discussed, as well as barriers to learning, if any, were acknowledged. /myles/ SANDRA JALLOH LPN License Practical Nurse Signed: 04/23/2025 08:43 SANDRA JALLOH [facility]
--- OUTSIDE RECORDS SUMMARY | 2025-07-02 09:14 | XMS_ITS | Continuity of Care Document ---
Author Name [facility] Organization [facility] Care Team Providers Care Physician/Internist Name Role Phone [facility] Unavailable Unavailable Problems Combined list of problems from Department of Defense and Veterans Affairs facilities. It does not include entries that were removed or entered in error. Problem Status Onset Date Problem Type Date of Resolution Comments Source Benign prostatic hyperplasia Active Condition [facility] Essential hypertension (SNOMED CT 39087218) Active Condition [facility] Exposure to potentially hazardous substance ([facility] [id number]) Active Condition Feb 15 Entered By: SHAHRAM KNOX Comment: Entered automatically through [employer]EEP[facility] Problem List documentation program [facility] Gastroesophageal reflux disease (SNOMED CT 240236624) Active Condition [facility] Hearing loss (SNOMED CT 11939472) Active Condition [facility] Low back pain (SNOMED CT 453418405) Active Condition Oct 24, 2024 Entered By: CAMILLA SOLIZ Comment: chronic in nature, uses tramadol sparingly only 1-2 times per year with flare up [facility] Neck pain (SNOMED CT 08960090) Active Condition [facility] Tinnitus Active Condition [facility] Knee pain (SNOMED CT 98051757) Inactive Condition 05/26/2018 [facility] Diagnosis: ICD-10-CM Z23 Encounter for immunization Active Diagnosis [facility] Diagnosis: ICD-10-CM Z46.1 Encounter for fitting and adjustment of hearing aid Active Diagnosis [facility] Diagnosis: ICD-10-CM 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 [facility] Diagnosis: ICD-10-CM Z77.29 Contact with and exposure to other hazardous substances Active Diagnosis [facility] Diagnosis: ICD-10-CM I24.9 Acute ischemic heart disease, unspecified Active Diagnosis [facility] Diagnosis: ICD-10-CM H90.3 Sensorineural hearing loss, bilateral Active Diagnosis [facility] Diagnosis: ICD-10-CM Z46.0 Encounter for fit/adjst of spectacles and contact lenses Active Diagnosis [facility] Diagnosis: ICD-10-CM H40.013 Open angle with borderline findings, low risk, bilateral Active Diagnosis [facility] Medications Combined list of outpatient medications [...] ACTIVE MARIA DOLORES SHAY AMMED [facility]ED [facility] AMLODIPINE BESYLATE 5MG TAB TAKE ONE TABLET BY MOUTH ONCE DAILY ORAL ACTIVE AHMEDMARIA DOLORES AMMED JAWED 2018 [facility] ASPIRIN 81MG TAB,EC TAKE ONE TABLET BY MOUTH EVERY DAY ORAL ACTIVE AHMARIA DOLORES [place] AMMED JAWED 2016 [facility] ATORVASTATI N CA 40MG TAB TAKE ONE-HALF TABLET BY MOUTH EVERY OTHER DAY ORAL ACTIVE FURCOLO,T HECTOR 2021 [facility] CARBOXYMETH YLCELLULOSE NA 0.5% SOLN,OPH INSTILL 1 DROP INTO EACH EYE FOUR TIMES DAILY NEEDED FOR DRY EYE OPHTHA LMIC ACTIVE 02/22/2026 [id number] 5 MERHAR,NO AH B 2024 45 [facility] CARBOXYMETH YLCELLULOSE NA 0.5% SOLN,OPH INSTILL 1 DROP INTO EACH EYE FOUR TIMES DAILY NEEDED FOR DRY EYE OPHTHA LMIC DISCONT INUED 02/17/2025 [id number] 4 MERHAR,NO AH B 2023 45 [facility] CHOLECALCIF NORBERTO 25MCG (1,000UNIT) TAB TAKE ONE TABLET BY MOUTH EVERY DAY ORAL ACTIVE [facility] [place] CYANOCOBALA MIN TAB TAKE 3000MG BY MOUTH EVERY DAY ORAL ACTIVE [facility] JAWED 2016 [facility] GLUCOSAMINE /CHONDROITI N CAP/TAB TAKE ONE BY MOUTH EVERY DAY ORAL ACTIVE [facility] [place]AN POTASSIUM 100MG TAB TAKE ONE TABLET BY MOUTH ONCE DAILY [facility] MAGNESIUM OXIDE 420MG TAB TAKE ONE TABLET BY MOUTH EVERY DAY [facility] METOPROLOL TARTRATE 25MG TAB TAKE ONE TABLET BY MOUTH TWICE DAILY ORAL ACTIVE [facility] OMEPRAZOLE 20MG CAP,EC TAKE 2 CAPSULES BY MOUTH EVERY MORNING 30 MINUTES BEFORE BREAKFAS T ORAL ACTIVE [facility] AMMED JAWED 2016 [facility] TRAMADOL HCL 50MG TAB TAKE ONE TABLET BY MOUTH EVERY 6 HOURS NEEDED ORAL ACTIVE [facility] 2019 [facility] Allergies, Adverse Reactions, Alerts Combined list of allergies from Department of Defense and Veterans Affairs facilities. It does not include entries that were removed or entered in error. Substance Category Reaction Severity Reaction type Status Date Reported Comments Source PRAVASTATIN Propensity to adverse reactions to drug (finding) Muscle pain active 7 [facility] ZETIA Propensity to adverse reactions to drug (finding) Sedated active 7 [facility] Immunizations Combined list of available immunizations from the Department of Defense and Veterans Affairs facilities. Immunization Series Date Given Administered By Site Reaction Lot Number CVX Code Drug Coagulating Drying Supervisor Status Comments Source RSV, RECOMBINANT, PROTEIN SUBUNIT RSVPREF3, ADJUVANT RECONSTITUTED , 0.5 ML, PF 2024 YEIMISANDRA LEFT DELTO ID [id number] complet ed Completed Series, [place], [facility] INFLUENZA, UNSPECIFIED FORMULATION 2023 88 complet ed Completed Series, HISTORICA L INFORMATI ON - FROM PATIENT'S RECALL, [facility] TD(ADULT) UNSPECIFIED FORMULATION 2023 139 complet ed Completed Series, HISTORICA L INFORMATI ON - FROM PATIENT'S RECALL, [facility] SETS [facility] INFLUENZA, UNSPECIFIED FORMULATION 2022 88 complet ed HISTORICA L INFORMATI ON - FROM PATIENT'S RECALL, [facility] COVID-19 (MODERNA), MRNA, LNP-S, BIVALENT BOOSTER, PF, 50 MCG/0.5 ML OR 25MCG/0.25 ML DOSE 5 2021 229 complet ed HISTORICA L INFORMATI ON - SOURCE UNSPECIFI ED, Lot#: [id number] Mfr: [employer] Expiratio n Date: 04/21/23 [facility] INFLUENZA, UNSPECIFIED FORMULATION 2021 88 complet ed HISTORICA L INFORMATI ON - SOURCE UNSPECIFI ED, [facility] COVID-19 (MODERNA), MRNA, LNP-S, PF, 100 [...] POLYSACCHARID E PPV23 2017 33 complet ed [facility] PNEUMOCOCCAL CONJUGATE PCV 13 2015 133 complet ed reports as having prevnar 13 through Jackelin mancini on [facility]. [facility] FLU,3 [...] Reference Range Date Interpretation Specimen Comments Source LIPID PANEL FASTING CHOLESTERO L [MASS/VOLU ME] IN SERUM OR PLASMA 154 mg/dL 04/17 Specimen Type: SERUM No comment entered. Ordering Provider: ANA SOLIZ Report Released Date/Time: Oct 24, 2024 08:21 AM Reporting Lab: [facility] [place] [address] [address] Performing Lab: [place] [facility] [address] [facility] [address] [facility] LIPID PANEL FASTING TRIGLYCERI DE [MASS/VOLU ME] IN SERUM OR PLASMA 233 mg/dL 0 - 150 04/17 H Specimen Type: SERUM No comment entered. Ordering Provider: ANA SOLIZ Report Released Date/Time: Oct 24, 2024 08:21 AM Reporting Lab: [facility] [place] [facility] [address] [facility] [address] Performing Lab: [facility] [address] [address] [facility] LIPID PANEL FASTING CHOLESTERO L IN LDL [MASS/VOLU ME] IN SERUM OR PLASMA BY CALCULAEVANO N 68 mg/dL 0 - 129 04/17 Specimen Type: SERUM No comment entered. Ordering Provider: ANA SOLIZ Report Released Date/Time: Oct 24, 2024 08:21 AM Reporting Lab: [facility] [place] [facility] [address] [facility] [address] Performing Lab: [facility] [address] [address] [facility] LIPID PANEL FASTING CHOLESTERO L.TOTAL/CH OLESTEROL IN HDL [MASS RATIO] IN SERUM OR PLASMA 3.9 04/17 Specimen Type: SERUM No comment entered. Ordering Provider: ANA SOLIZ Report Released Date/Time: Oct 24, 2024 08:21 AM Reporting Lab: [facility] [place] [facility] [address] [facility] [address] Performing Lab: [facility] [place] [facility] [address] [facility] [address] [facility] LIPID PANEL FASTING CHOLESTERO L IN HDL [MASS/VOLU ME] IN SERUM OR PLASMA 39 mg/dL 40 04/17 L Specimen Type: SERUM No comment entered. Ordering Provider: NAA SOLIZ Report Released Date/Time: Oct 24, 2024 08:21 AM Reporting Lab: [facility] [place] [facility] [address] [facility] [address] Performing Lab: [facility] [address] [facility] [address] [facility] BASIC METABOLI C PANEL (fasting ) UREA NITROGEN [MASS/VOLU ME] IN SERUM OR PLASMA 16 mg/dL 8 - 26 04/17 Specimen Type: SERUM No comment entered. Ordering Provider: ANA SOLIZ Report Released Date/Time: Oct 24, 2024 08:21 AM Reporting Lab: [facility] [place] [facility] [address] [facility] [address] Performing Lab: [facility] [address] [facility] [address] [facility] BASIC METABOLI C PANEL (fasting ) GLUCOSE [MASS/VOLU ME] IN SERUM OR PLASMA 102 mg/dL 65 - 100 04/17 H Specimen Type: SERUM No comment entered. Ordering Provider: ANA SOLIZ Report Released Date/Time: Oct 24, 2024 08:21 AM Reporting Lab: [facility] [place] [facility] [address] [facility] [address] Performing Lab: [facility] [place] [facility] [address] [facility] [address] [facility] [place] [facility] BASIC METABOLI C PANEL (fasting ) SODIUM [MOLES/VOL UME] IN SERUM OR PLASMA 140 mmol/L 136 - 145 04/17 Specimen Type: SERUM No comment entered. Ordering Provider: FURCOLO,TIN A Report Released Date/Time: Oct 24, 2024 08:21 AM Reporting Lab: [facility] [place] [facility] [address] [facility] [address] Performing Lab: [facility] [place] [facility] [address] [facility] [address] [facility] [place] [facility] BASIC METABOLI C PANEL (fasting ) POTASSIUM [MOLES/VOL UME] IN SERUM OR PLASMA 5.4 mmol/L 3.5 - 5.1 04/17 H Specimen Type: SERUM No comment entered. Ordering Provider: ANA SOLIZ Report Released Date/Time: Oct 24, 2024 08:21 AM Reporting Lab: [facility] [place] [facility] [address] [facility] [address] Performing Lab: [facility] [place] [address] [address] [place] [facility] [place] [facility] BASIC METABOLI C PANEL (fasting ) CHLORIDE [MOLES/VOL UME] IN SERUM OR PLASMA 103 mmol/L 98 - 107 04/17 Specimen Type: SERUM No comment entered. Ordering Provider: ANA SOLIZ Report Released Date/Time: Oct 24, 2024 08:21 AM Reporting Lab: [facility] [place] [facility] [address] [facility] [address] Performing Lab: [facility] [place] [address] [address] [facility] [place] [facility] BASIC METABOLI C PANEL (fasting ) CARBON DIOXIDE, TOTAL [MOLES/VOL UME] IN SERUM OR PLASMA 28 meq/L 23 - 31 04/17 Specimen Type: SERUM No comment entered. Ordering Provider: ANA SOLIZ Report Released Date/Time: Oct 24, 2024 08:21 AM Reporting Lab: [facility] [place] [facility] [address] [facility] [address] Performing Lab: [facility] [place] [address] [address] [facility] [place] [facility] BASIC METABOLI C PANEL (fasting ) CALCIUM [MASS/VOLU ME] IN SERUM OR PLASMA 9.8 mg/dL 8.8 - 10 04/17 Specimen Type: SERUM No comment entered. Ordering Provider: ANA SOLIZ Report Released Date/Time: Oct 24, 2024 08:21 AM Reporting Lab: [place] [facility] [place] [address] [address] Performing Lab: [facility] [address] [facility]TONTRN [facility]ITALUSE [facility] BASIC METABOLI C PANEL (fasting ) CREATININE [MASS/VOLU ME] IN SERUM OR PLASMA 0.96 mg/dL 0.72 - 1.25 04/17 Specimen Type: SERUM No comment entered. Ordering Provider: ANA SOLIZ Report Released Date/Time: Oct 24, 2024 08:21 AM Reporting Lab: [facility] TRN [address] [address] Performing Lab: [facility] TRN [facility]ITALUSE[address] [address] [facility]ERN [facility] BASIC METABOLI C PANEL (fasting ) GLOMERULAR FILTRATION RATE/1.73 SQ M.PREDICTE D [VOLUME RATE/AREA] IN SERUM, PLASMA OR BLOOD BY CREATININE -BASED FORMULA (CKD-EPI 2020) 82 mL/min 60 04/17 Specimen Type: SERUM No comment entered. Ordering Provider: ANA SOLIZ Report Released Date/Time: Oct 24, 2024 08:21 AM Reporting Lab: [facility] WSTRN [address] [address] Performing Lab: [facility] TRN [facility]ITAL[facility] [address] [facility]ENTERN [facility] LIVER FUNCTION PROTEIN [MASS/VOLU ME] IN SERUM OR PLASMA 7.7 g/dL 6.4 - 8.3 04/17 Specimen Type: SERUM No comment entered. Ordering Provider: ANA SOLIZ Report Released Date/Time: Oct 24, 2024 08:21 AM Reporting Lab: [facility] [address] Performing Lab: [facility]N [facility]ITALUSE[facility] [address] [facility] [address] [facility] LIVER FUNCTION ALBUMIN [MASS/VOLU ME] IN SERUM OR PLASMA BY BROMOCRESO L PURPLE (BCP) DYE BINDING METHOD 4.9 g/dL 3.2 - 4.6 04/17 H Specimen Type: SERUM No comment entered. Ordering Provider: ANA SOLIZ Report Released Date/Time: Oct 24, 2024 08:21 AM Reporting Lab: [facility]TR[facility] [address] [facility] [address] Performing Lab: [facility]VER[facility]ERN [facility] [address] [facility] [address] [facility] LIVER FUNCTION ALKALINE PHOSPHATAS E [ENZYMATIC ACTIVITY/V OLUME] IN SERUM OR PLASMA 94 U/L 40 - 150 04/17 Specimen Type: SERUM No comment entered. Ordering Provider: ANA SOLIZ Report Released Date/Time: Oct 24, 2024 08:21 AM Reporting Lab: [facility]VER[facility]ERN [facility] [address] [facility] [address] Performing Lab: [facility] [address] [facility] [address] [facility] LIVER FUNCTION ASPARTATE AMINOTRANS FERASE [ENZYMATIC ACTIVITY/V OLUME] IN SERUM OR PLASMA BY WITH P-5'-P 32 U/L 5 - 34 04/17 Specimen Type: SERUM No comment entered. Ordering Provider: ANA SOLIZ Report Released Date/Time: Oct 24, 2024 08:21 AM Reporting Lab: [facility]ITAL[facility] [address] [facility] [address] Performing Lab: [facility]TONTRN [facility]ITALUSE[address] [address] [facility] LIVER FUNCTION ALANINE AMINOTRANS FERASE [ENZYMATIC ACTIVITY/V OLUME] IN SERUM OR PLASMA BY WITH P-5'-P 36 U/L 0 - 55 04/17 Specimen Type: SERUM No comment entered. Ordering Provider: ANA SOLIZ Report Released Date/Time: Oct 24, 2024 08:21 AM Reporting Lab: [facility] [place] [facility] [address] [facility] [address] Performing Lab: [facility] [place] [facility] [address] [facility] [address] [facility] [place] [facility] LIVER FUNCTION BILIRUBIN. TOTAL [MASS/VOLU ME] IN SERUM OR PLASMA 1.7 mg/dL 0.2 - 1.2 04/17 H Specimen Type: SERUM No comment entered. Ordering Provider: ANA SOLIZ Report Released Date/Time: Oct 24, 2024 08:21 AM Reporting Lab: [place] [facility] [place] [address] [address] Performing Lab: [place] [facility] [place] [address] [address] [facility] [place] [facility] LIVER FUNCTION BILIRUBIN. DIRECT [MASS/VOLU ME] IN SERUM OR PLASMA 0.4 mg/dL 0 - 0.5 04/17 Specimen Type: SERUM No comment entered. Ordering Provider: ANA SOLIZ Report Released Date/Time: Oct 24, 2024 08:21 AM Reporting Lab: [place] [facility] [place] [address] [address] Performing Lab: [place] [facility] [place] [address] [address] [facility] [place] [facility] PSA PROSTATE SPECIFIC AG [MASS/VOLU ME] IN SERUM OR PLASMA 2.76 ng/mL 0.00 - 4.00 10/17 Specimen Type: SERUM No comment entered. Ordering Provider: ANA SOLIZ Report Released Date/Time: Apr 24, 2024 09:20 AM Reporting Lab: [place] [facility] [place] [address] [address] Performing Lab: [place] [facility]ITALCH[facility]ETS [address] [address] [facility] [place] [facility] OCCULT BLOOD FIT X1 SCREEN(I N-HOUSE) HEMOGLOBIN .GASTROINT ESTINAL.LO WER [PRESENCE] IN STOOL BY IMMUNOASSA Y Negative 04/28 Specimen Type: FECES No comment entered. Ordering Provider: ANA SOLIZ Report Released Date/Time: Apr 24, 2024 08:48 AM Reporting Lab: [facility] CHILTONTRN [address] [address] Performing Lab: [facility] [address] [address] [facility]ERN [facility]ITALUSE [facility] BASIC METABOLI C PANEL (fasting ) UREA NITROGEN [MASS/VOLU ME] IN SERUM OR PLASMA 12 mg/dL 7 - 25 04/18 Specimen Type: SERUM No comment entered. Ordering Provider: ANA SOLIZ Report Released Date/Time: Apr 11, 2024 11:41 AM Reporting Lab: [facility] [address] [address] Performing Lab: [facility]VER[facility]ENTERN [address] [address] [facility] BASIC METABOLI C PANEL (fasting ) GLUCOSE [MASS/VOLU ME] IN SERUM OR PLASMA 100 mg/dL 65 - 100 04/18 Specimen Type: SERUM No comment entered. Ordering Provider: ANA SOLIZ Report Released Date/Time: Apr 11, 2024 11:41 AM Reporting Lab: [facility] [address] [address] Performing Lab: [facility]REVER[facility]ENTERN [facility]ITALUSE[address] [address] [facility]ITALUSE [facility] BASIC METABOLI C PANEL (fasting ) SODIUM [MOLES/VOL UME] IN SERUM OR PLASMA 141 mmol/L 135 - 145 04/18 Specimen Type: SERUM No comment entered. Ordering Provider: ANA SOLIZ Report Released Date/Time: Apr 11, 2024 11:41 AM Reporting Lab: [facility] [address] [address] Performing Lab: [facility]VER[facility]ENTERN [facility]ITALUSE[address] [address] [place] [facility] [facility] BASIC METABOLI C PANEL (fasting ) POTASSIUM [MOLES/VOL UME] IN SERUM OR PLASMA 4.2 mmol/L 3.5 - 5.0 04/18 Specimen Type: SERUM No comment entered. Ordering Provider: ANA SOLIZ Report Released Date/Time: Apr 11, 2024 11:41 AM Reporting Lab: [facility] [place] [facility] [address] [facility] [address] Performing Lab: [facility] [place] [facility] [address] [facility] [address] [place] [facility] [place] [facility] BASIC METABOLI C PANEL (fasting ) CHLORIDE [MOLES/VOL UME] IN SERUM OR PLASMA 106 mmol/L 100 - 110 04/18 Specimen Type: SERUM No comment entered. Ordering Provider: ANA SOLIZ Report Released Date/Time: Apr 11, 2024 11:41 AM Reporting Lab: [facility] [place] [address] [address] Performing Lab: [facility] [place] [address] [address] [place] [facility] [place] [facility] BASIC METABOLI C PANEL (fasting ) CARBON DIOXIDE, TOTAL [MOLES/VOL UME] IN SERUM OR PLASMA 25 meq/L 20 - 30 04/18 Specimen Type: SERUM No comment entered. Ordering Provider: ANA SOLIZ Report Released Date/Time: Apr 11, 2024 11:41 AM Reporting Lab: [facility] [place] [facility] [address] [facility] [address] Performing Lab: [facility] [place] [address] [address] [place] [facility] [place] [facility] BASIC METABOLI C PANEL (fasting ) CREATININE [MASS/VOLU ME] IN SERUM OR PLASMA 0.88 mg/dL 0.50 - 1.40 04/18 Specimen Type: SERUM No comment entered. Ordering Provider: ANA SOLIZ Report Released Date/Time: Apr 11, 2024 11:41 AM Reporting Lab: [facility] [place] [facility] [address] [facility] [address] Performing Lab: [place] [facility] [place] [facility] [address] [facility] [address] [place] [facility] [place] [facility] BASIC METABOLI C PANEL (fasting ) GLOMERULAR FILTRATION RATE/1.73 SQ M.PREDICTE D [VOLUME RATE/AREA] IN SERUM, PLASMA OR BLOOD BY CREATININE -BASED FORMULA (CKD-EPI 2020) 90 mL/min 60 04/18 Specimen Type: SERUM No comment entered. Ordering Provider: ANA SOLIZ Report Released Date/Time: Apr 11, 2024 11:41 AM Reporting Lab: [facility] [place] [facility] [address] [facility] [address] Performing Lab: [facility] [address] [facility] [phone] [facility] LIVER FUNCTION PROTEIN [MASS/VOLU ME] IN SERUM OR PLASMA 7.0 g/dL 6.0 - 8.3 04/18 Specimen Type: SERUM No comment entered. Ordering Provider: ANA SOLIZ Report Released Date/Time: Apr 11, 2024 11:41 AM Reporting Lab: [place] [facility] [facility] [address] [facility] [address] Performing Lab: [place] [facility] [place] [facility] [address] [facility] [phone] [facility] LIVER FUNCTION ALBUMIN [MASS/VOLU ME] IN SERUM OR PLASMA 4.0 g/dL 3.5 - 5.0 04/18 Specimen Type: SERUM No comment entered. Ordering Provider: ANA SOLIZ Report Released Date/Time: Apr 11, 2024 11:41 AM Reporting Lab: [facility] [place] [facility] [address] [facility] [address] Performing Lab: [facility] [address] [address] [facility] LIVER FUNCTION ALKALINE PHOSPHATAS E [ENZYMATIC ACTIVITY/V OLUME] IN SERUM OR PLASMA 83 U/L 40 - 150 04/18 Specimen Type: SERUM No comment entered. Ordering Provider: ANA SOLIZ Report Released Date/Time: Apr 11, 2024 11:41 AM Reporting Lab: [facility] [place] [facility] [address] [facility] [address] Performing Lab: [facility] [place] [facility] [address] [facility] [address] [facility] [place] [facility] LIVER FUNCTION ASPARTATE AMINOTRANS FERASE [ENZYMATIC ACTIVITY/V OLUME] IN SERUM OR PLASMA 24 U/L 5 - 34 04/18 Specimen Type: SERUM No comment entered. Ordering Provider: ANA SOLIZ Report Released Date/Time: Apr 11, 2024 11:41 AM Reporting Lab: [facility] [place] [facility] [address] [facility] [address] Performing Lab: [facility] [place] [address] [address] [facility] LIVER FUNCTION ALANINE AMINOTRANS FERASE [ENZYMATIC ACTIVITY/V OLUME] IN SERUM OR PLASMA 22 U/L 04/18 Specimen Type: SERUM No comment entered. Ordering Provider: ANA SOLIZ Report Released Date/Time: Apr 11, 2024 11:41 AM Reporting Lab: [facility] [place] [facility] [address] [facility] [address] Performing Lab: [facility] [place] [address] [address] [facility] LIVER FUNCTION BILIRUBIN. TOTAL [MASS/VOLU ME] IN SERUM OR PLASMA 1.5 mg/dL 0.2 - 1.2 04/18 H Specimen Type: SERUM No comment entered. Ordering Provider: ANA SOLIZ Report Released Date/Time: Apr 11, 2024 11:41 AM Reporting Lab: [facility] [place] [facility] [address] [facility] [address] Performing Lab: [facility] [place] [address] [address] [facility] LIVER FUNCTION BILIRUBIN. DIRECT [MASS/VOLU ME] IN SERUM OR PLASMA 0.5 mg/dL 0 - 0.5 04/18 Specimen Type: SERUM No comment entered. Ordering Provider: ANA SOLIZ Report Released Date/Time: Apr 11, 2024 11:41 AM Reporting Lab: [facility] [address] [facility] [address] Performing Lab: [facility] [address] [facility] LIPID PANEL FASTING CHOLESTERO L [MASS/VOLU ME] IN SERUM OR PLASMA 141 mg/dL 04/18 Specimen Type: SERUM No comment entered. Ordering Provider: ANA SOLIZ Report Released Date/Time: Apr 11, 2024 11:41 AM Reporting Lab: [facility] [address] Performing Lab: [facility] [address] [facility] LIPID PANEL FASTING TRIGLYCERI DE [MASS/VOLU ME] IN SERUM OR PLASMA 159 mg/dL 0 - 150 04/18 H Specimen Type: SERUM No comment entered. Ordering Provider: ANA SOLIZ Report Released Date/Time: Apr 11, 2024 11:41 AM Reporting Lab: [facility] [address] Performing Lab: [facility] [address] [facility] LIPID PANEL FASTING CHOLESTERO L IN LDL [MASS/VOLU ME] IN SERUM OR PLASMA BY CALCULATIO N 64 mg/dL 0 - 129 04/18 Specimen Type: SERUM No comment entered. Ordering Provider: ANA SOLIZ Report Released Date/Time: Apr 11, 2024 11:41 AM Reporting Lab: [facility] [address] Performing Lab: [facility] [address] [facility] [place] [facility] LIPID PANEL FASTING CHOLESTERO L.TOTAL/CH OLESTEROL IN HDL [MASS RATIO] IN SERUM OR PLASMA 3.1 04/18 Specimen Type: SERUM No comment entered. Ordering Provider: ANA SOLIZ Report Released Date/Time: Apr 11, 2024 11:41 AM Reporting Lab: [facility] [place] [facility] [address] [facility] [address] Performing Lab: [facility] [place] [facility] [address] [facility] [address] [facility] [place] [facility] LIPID PANEL FASTING CHOLESTERO L IN HDL [MASS/VOLU ME] IN SERUM OR PLASMA 45 mg/dL 40 - 60 04/18 Specimen Type: SERUM No comment entered. Ordering Provider: ANA SOLIZ Report Released Date/Time: Apr 11, 2024 11:41 AM Reporting Lab: [facility] [place] [address] [address] Performing Lab: [facility] [place] [address] [address] [facility] [place] [facility] BASIC METABOLI C PANEL (fasting ) UREA NITROGEN [MASS/VOLU ME] IN SERUM OR PLASMA 9 mg/dL 7 - 25 10/19 Specimen Type: SERUM No comment entered. Ordering Provider: MIKAELA SHAY Report Released Date/Time: Oct 08, 2023 11:59 AM Reporting Lab: [facility] [place] [facility] [address] [facility] [address] Performing Lab: [facility] [place] [address] [address] [facility] [place] [facility] BASIC METABOLI C PANEL (fasting ) GLUCOSE [MASS/VOLU ME] IN SERUM OR PLASMA 111 mg/dL 65 - 100 10/19 H Specimen Type: SERUM No comment entered. Ordering Provider: MIKAELA SHAY Report Released Date/Time: Oct 08, 2023 11:59 AM Reporting Lab: [facility] [place] [facility] [address] [facility] [address] Performing Lab: [facility] [place] [facility] [address] [facility] [address] [facility] [place] [facility] BASIC METABOLI C PANEL (fasting ) SODIUM [MOLES/VOL UME] IN SERUM OR PLASMA 140 mmol/L 135 - 145 10/19 Specimen Type: SERUM No comment entered. Ordering Provider: MIKAELA SHAY Report Released Date/Time: Oct 08, 2023 11:59 AM Reporting Lab: [facility] [place] [facility] [address] [facility] [address] Performing Lab: [facility] [place] [facility] [address] [facility] [address] [facility] [facility] BASIC METABOLI C PANEL (fasting ) POTASSIUM [MOLES/VOL UME] IN SERUM OR PLASMA 4.8 mmol/L 3.5 - 5.0 10/19 Specimen Type: SERUM No comment entered. Ordering Provider: MIKAELA SHAY Report Released Date/Time: Oct 08, 2023 11:59 AM Reporting Lab: [facility] [place] [facility] [address] [facility] [address] Performing Lab: [facility] [place] [facility] [address] [facility] [address] [facility] [facility] BASIC METABOLI C PANEL (fasting ) CHLORIDE [MOLES/VOL UME] IN SERUM OR PLASMA 106 mmol/L 100 - 110 10/19 Specimen Type: SERUM No comment entered. Ordering Provider: MIKAELA SHAY Report Released Date/Time: Oct 08, 2023 11:59 AM Reporting Lab: [facility] [place] [facility] [address] [facility] [address] Performing Lab: [facility] [place] [facility] [address] [facility] [address] [facility] [place] [facility] BASIC METABOLI C PANEL (fasting ) CARBON DIOXIDE, TOTAL [MOLES/VOL UME] IN SERUM OR PLASMA 27 meq/L 20 - 30 10/19 Specimen Type: SERUM No comment entered. Ordering Provider: MIKAELA SHAY Report Released Date/Time: Oct 08, 2023 11:59 AM Reporting Lab: [facility] [place] [facility] [address] [facility] [address] Performing Lab: [facility] [facility] [address] [facility] [address] [facility] [place] [facility] BASIC METABOLI C PANEL (fasting ) CREATININE [MASS/VOLU ME] IN SERUM OR PLASMA 0.83 mg/dL 0.50 - 1.40 10/19 Specimen Type: SERUM No comment entered. Ordering Provider: MIKAELA SHAY Report Released Date/Time: Oct 08, 2023 11:59 AM Reporting Lab: [facility] [place] [address] [address] Performing Lab: [facility] [place] [address] [address] [facility] [facility] BASIC METABOLI C PANEL (fasting ) GLOMERULAR FILTRATION RATE/1.73 SQ M.PREDICTE D [VOLUME RATE/AREA] IN SERUM, PLASMA OR BLOOD BY CREATININE -BASED FORMULA (CKD-EPI 2020) >90mL/mi n 60 10/19 Specimen Type: SERUM No comment entered. Ordering Provider: MIKAELA SHAY Report Released Date/Time: Oct 08, 2023 11:59 AM Reporting Lab: [facility] [place] [address] [address] Performing Lab: [facility] [place] [address] [address] [facility] [facility] CBC AND DIFF (AUTO) LEUKOCYTES [#/VOLUME] IN BLOOD BY AUTOMATED COUNT 5.60 10*3/uL 4.50 - 11.00 10/19 Specimen Type: BLOOD No comment entered. Ordering Provider: MIKAELA SHAY Report Released Date/Time: Oct 08, 2023 11:59 AM Reporting Lab: [facility] [address] [address] Performing Lab: [facility] [place] [facility] [address] [facility] [address] [facility] [place] [facility] CBC AND DIFF (AUTO) ERYTHROCYT ES [#/VOLUME] IN BLOOD BY AUTOMATED COUNT 4.68 10*6/uL 4.23 - 5.66 10/19 Specimen Type: BLOOD No comment entered. Ordering Provider: MIKAELA SHAY Report Released Date/Time: Oct 08, 2023 11:59 AM Reporting Lab: [facility] [place] [facility] [address] [facility] [address] Performing Lab: [facility] [place] [facility] [address] [facility] [address] [facility] [place] [facility] CBC AND DIFF (AUTO) HEMOGLOBIN [MASS/VOLU ME] IN BLOOD 15.3 g/dL 12.8 - 17 10/19 Specimen Type: BLOOD No comment entered. Ordering Provider: MIKAELA SHAY Report Released Date/Time: Oct 08, 2023 11:59 AM Reporting Lab: [facility] [place] [facility] [address] [facility] [address] Performing Lab: [facility] [place] [facility] [address] [facility] [address] [facility] [place] [facility] CBC AND DIFF (AUTO) HEMATOCRIT [VOLUME FRACTION] OF BLOOD BY AUTOMATED COUNT 45.1 39.2 - 50.4 10/19 Specimen Type: BLOOD No comment entered. Ordering Provider: MIKAELA SHAY Report Released Date/Time: Oct 08, 2023 11:59 AM Reporting Lab: [facility] [place] [facility] [address] [facility] [address] Performing Lab: [facility] [place] [facility] [address] [facility] [address] [facility] [place] [facility] CBC AND DIFF (AUTO) MCV [ENTITIC VOLUME] BY AUTOMATED COUNT 96.4 fL 82 - 99 10/19 Specimen Type: BLOOD No comment entered. Ordering Provider: MIKAELA SHAY Report Released Date/Time: Oct 08, 2023 11:59 AM Reporting Lab: [facility] [place] [facility] [address] [facility] [address] Performing Lab: [facility] [place] [facility] [address] [facility] [address] [facility] [place] [facility] CBC AND DIFF (AUTO) MCHC [MASS/VOLU ME] BY AUTOMATED COUNT 33.9 g/dL 30.8 - 35.1 10/19 Specimen Type: BLOOD No comment entered. Ordering Provider: MIKAELA SHAY Report Released Date/Time: Oct 08, 2023 11:59 AM Reporting Lab: [facility] [place] [facility] [address] [facility] [address] Performing Lab: [facility] [place] [place] [facility] [address] [facility] [address] [facility] [place] [facility] CBC AND DIFF (AUTO) PLATELETS [#/VOLUME] IN BLOOD BY AUTOMATED COUNT 234 10*3/uL 140 - 360 10/19 Specimen Type: BLOOD No comment entered. Ordering Provider: MIKAELA SHAY Report Released Date/Time: Oct 08, 2023 11:59 AM Reporting Lab: [facility] [place] [facility] [address] [facility] [address] Performing Lab: [facility] [place] [facility] [address] [facility] [address] [facility] [place] [facility] CBC AND DIFF (AUTO) ERYTHROCYT E DISTRIBUTI ON WIDTH [RATIO] BY AUTOMATED COUNT 12.9 12.0 - 16.0 10/19 Specimen Type: BLOOD No comment entered. Ordering Provider: MIKAELA SHAY Report Released Date/Time: Oct 08, 2023 11:59 AM Reporting Lab: [facility] [place] [facility] [address] [facility] [address] Performing Lab: [facility] [place] [facility] [address] [facility] [address] [facility] [place] [facility] CBC AND DIFF (AUTO) MONOCYTES [#/VOLUME] IN BLOOD BY AUTOMATED COUNT 0.49 10*3/uL 0.30 - 1.10 10/19 Specimen Type: BLOOD No comment entered. Ordering Provider: MIKAELA SHAY Report Released Date/Time: Oct 08, 2023 11:59 AM Reporting Lab: [facility] [place] [facility] [address] [facility] [address] Performing Lab: [facility] [place] [facility] [address] [facility] [address] [facility] [place] [facility] CBC AND DIFF (AUTO) MCH [ENTITIC MASS] BY AUTOMATED COUNT 32.7 pg 26.2 - 32.6 10/19 H Specimen Type: BLOOD No comment entered. Ordering Provider: MIKAELA SHAY Report Released Date/Time: Oct 08, 2023 11:59 AM Reporting Lab: [facility] [place] [facility] [address] [facility] [address] Performing Lab: [facility] [place] [facility] [address] [facility] [address] [facility] [place] [facility] CBC AND DIFF (AUTO) NEUTROPHIL S/100 LEUKOCYTES IN BLOOD BY AUTOMATED COUNT 63.0 43.7 - 75.8 10/19 Specimen Type: BLOOD No comment entered. Ordering Provider: MIKAELA SHAY Report Released Date/Time: Oct 08, 2023 11:59 AM Reporting Lab: [facility] [place] [facility] [address] [facility] [address] Performing Lab: [facility] [place] [facility] [address] [facility] [address] [facility] [place] [facility] CBC AND DIFF (AUTO) LYMPHOCYTE S/100 LEUKOCYTES IN BLOOD BY AUTOMATED COUNT 23.2 14.0 - 42.3 10/19 Specimen Type: BLOOD No comment entered. Ordering Provider: MIKAELA SHAY Report Released Date/Time: Oct 08, 2023 11:59 AM Reporting Lab: [facility] [place] [facility] [address] [facility] [address] Performing Lab: [facility] [place] [facility] [address] [facility] [address] [facility] [place] [facility] CBC AND DIFF (AUTO) MONOCYTES/ 100 LEUKOCYTES IN BLOOD BY AUTOMATED COUNT 8.8 5.1 - 13.7 10/19 Specimen Type: BLOOD No comment entered. Ordering Provider: MIKAELA SHAY Report Released Date/Time: Oct 08, 2023 11:59 AM Reporting Lab: [facility] [place] [facility] [address] [facility] [address] Performing Lab: [facility] [place] [facility] [address] [facility] [address] [facility] [place] [facility] CBC AND DIFF (AUTO) EOSINOPHIL S/100 LEUKOCYTES IN BLOOD BY AUTOMATED COUNT 3.9 0.4 - 6.8 10/19 Specimen Type: BLOOD No comment entered. Ordering Provider: MIKAELA SHAY Report Released Date/Time: Oct 08, 2023 11:59 AM Reporting Lab: [facility] [place] [address] [address] Performing Lab: [facility] [place] [address] [address] [facility] [place] [facility] CBC AND DIFF (AUTO) BASOPHILS/ 100 LEUKOCYTES IN BLOOD BY AUTOMATED COUNT 0.7 0.1 - 2.0 10/19 Specimen Type: BLOOD No comment entered. Ordering Provider: MIKAELA SHAY Report Released Date/Time: Oct 08, 2023 11:59 AM Reporting Lab: [facility] [place] [address] [address] Performing Lab: [facility] [place] [facility] [address] [place] [address] [facility] [place] [facility] CBC AND DIFF (AUTO) NEUTROPHIL S [#/VOLUME] IN BLOOD BY AUTOMATED COUNT 3.53 10*3/uL 2.20 - 7.60 10/19 Specimen Type: BLOOD No comment entered. Ordering Provider: MIKAELA SHAY Report Released Date/Time: Oct 08, 2023 11:59 AM Reporting Lab: [facility] [place] [address] [address] Performing Lab: [facility] [place] [facility] [address] [facility] [address] [facility] [place] [facility] CBC AND DIFF (AUTO) LYMPHOCYTE S [#/VOLUME] IN BLOOD BY AUTOMATED COUNT 1.30 10*3/uL 1.00 - 3.20 10/19 Specimen Type: BLOOD No comment entered. Ordering Provider: MIKAELA SHAY Report Released Date/Time: Oct 08, 2023 11:59 AM Reporting Lab: [facility] [place] [facility] [address] [facility] [address] Performing Lab: [facility] [place] [facility] [address] [facility] [address] [facility] [place] [facility] CBC AND DIFF (AUTO) EOSINOPHIL S [#/VOLUME] IN BLOOD BY AUTOMATED COUNT 0.22 10*3/uL 0.03 - 0.44 10/19 Specimen Type: BLOOD No comment entered. Ordering Provider: MIKAELA SHAY Report Released Date/Time: Oct 08, 2023 11:59 AM Reporting Lab: [facility] [place] [facility] [address] [facility] [address] Performing Lab: [facility] [place] [facility] [address] [facility] [address] [facility] [place] [facility] CBC AND DIFF (AUTO) BASOPHILS [#/VOLUME] IN BLOOD BY AUTOMATED COUNT 0.04 10*3/uL 0.01 - 0.13 10/19 Specimen Type: BLOOD No comment entered. Ordering Provider: MIKAELA SHAY Report Released Date/Time: Oct 08, 2023 11:59 AM Reporting Lab: [facility] [place] [facility] [address] [facility] [address] Performing Lab: [facility] [place] [facility] [address] [facility] [address] [facility] CBC AND DIFF (AUTO) IMMATURE GRANULOCYT ES/100 LEUKOCYTES IN BLOOD BY AUTOMATED COUNT 0.4 0.0 - 0.7 10/19 Specimen Type: BLOOD No comment entered. Ordering Provider: MIKAELA SHAY Report Released Date/Time: Oct 08, 2023 11:59 AM Reporting Lab: [facility] [place] [facility] [address] [facility] [address] Performing Lab: [facility] [place] [facility] [address] [facility] [address] [facility] [place] [facility] CBC AND DIFF (AUTO) IMMATURE GRANULOCYT ES [#/VOLUME] IN BLOOD 0.02 10*3/uL 0.00 - 0.06 10/19 Specimen Type: BLOOD No comment entered. 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 Vital Sign Value Date Comments Source PULSE OXIMETRY 96 % 04/23/2025 08:30:06 [facility] WEIGHT 198 04/23/2025 08:30:06 [facility] BMI 32 kg/m2 04/23/2025 08:30:06 [facility] PAIN 5 04/23/2025 08:30:06 [facility] TEMPERATURE 97.8 04/23/2025 08:30:06 [facility] PULSE 54 04/23/2025 08:30:06 [facility] RESPIRATION 16 04/23/2025 08:30:06 [facility] SYSTOLIC BLOOD PRESSURE 158 10/24/20 24 07:57:57 [...] 10/24/2024 07:57:57 [facility] Encounters Combined [...] Source [facility] HEARING AID REPAIR/MOD IFYING [id number] Diagnos is: ICD-10- CM Z46.1 Encount er for fitting and adjustm ent of hearing aid GARFIELD PICHARDO L 02/03 [facility] [place] 1/ [id number] Diagnos is: ICD-10- CM H40.013 Open angle with borderl ine finding s, low risk, bilater al MERJOVI,ADRIENNE H B 02/16 [facility] FIT SPECTACLES MULTIFOCAL [id number] Diagnos is: ICD-10- CM Z46.0 Encount er for fit/adj st of spectac les and contact lenses MERJOVI,ADRIENNE H B 02/16 [facility] HEARING AID REPAIR/MOD IFYING [id number] Diagnos is: ICD-10- CM H90.3 Sensori neural hearing loss, ATIF Robison 03/30 [facility] HEARING SERVICE [id number] Diagnos is: ICD-10- CM Z46.1 Encount er for fitting and adjustm ent of hearing aid TITUS STORY L 04/21 [facility] Outpatient Encounter [id number] 04/24 [facility] OFFICE O/P EST HI 40 MIN [id number] Diagnos is: ICD-10- CM I24.9 Acute ischemi c heart disease , unspeci fied FURCOLO,TI NA 04/24 [facility] En[facility] [id number] 1.08/17 [facility] Encounter [id number] 10/13 [facility] HEARING AID REPAIR/MOD IFYING [id number] 1. Diagnos is: ICD-10- CM Z46.1 Encount er for fitting and adjustm ent of hearing aid TIFFANYJULIA 10/17 [facility] OFFICE O/P EST MOD 30 MIN [id number] 1. 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 MERHAR,ADRIENNE H B 02/21 [facility] FUNDUS PHOTOGRAPH Y W/I&R [id number] Diagnos is: ICD-10- CM 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 MERHAR,ADRIENNE H B 02/21 [facility] Outpatient Encounter [id number] 04/13 [facility] HEARING AID REPAIR/MOD IFYING [id number] Diagnos is: ICD-10- CM Z46.1 Encount er for fitting and adjustm ent of hearing aid JULIA ALLEN Ashley 04/17 [facility] OFFICE O/P EST MOD 30 MIN [id number] Diagnos is: ICD-10- CM Z23 Encount er for immuniz ation FURCOLO,TI NA 04/23 [facility] Social History Combined list of available smoking, tobacco, and other social history from Department of Defense and Veterans Affairs facilities. Social History Type Response Date Comment Source Tobacco smoking status [facility]-TOBACCO USE FORMER CIGARETTES 10/24/2024 [facility] History of tobacco use VA-TOBACCO NEVER USED OTHER TYPE 10/24/2024 [facility] [place] of tobacco use [place] FOR[place] [facility] [place] [facility] tobacco use [place] [facility] [facility] [place] [facility] [place] use [place] 09[facility]25[facility]20[facility] [facility] of [facility] History of tobacco use QUIT TOBACCO USE > 7 YEARS AGO 05/26/2018 [facility] History of tobacco use QUIT TOBACCO USE > 7 YEARS AGO 04/19/2017 [facility] History of tobacco use QUIT TOBACCO USE > 7 YEARS AGO 04/15/2016 . [facility] History of tobacco use QUIT TOBACCO USE > 7 YEARS AGO 03/16/2014 quit 40 years ago [facility] Plan of Care List of future care activities from [facility] facilities. Additional future care activities may be listed in the Assessment and Plan section. Date/Time Care Activity Care Activity Detail Facili ty 09/24/2025 AMBULATORY - MEDICINE [facility]
--- NOTE | 2025-07-02 13:06 | A.OFFPC_ITS ---
Vital Signs 07/02/25 13:12 Height 5 ft 6 in Weight 197 lb BMI 31.8 BP 168/80 H Blood Pressure Location Rt brachial Position Sitting Respiration 16 Pulse 64 Temp 96.7 F L Temp Source Temporal Artery Scan Pulse Oximetry (%) 97 Oxygen Delivery Method Room Air Intake Visit Reasons: Routine / Dr Mullen - see comments Take Out Waitress Required: No Accompanied by: Self / Same As Patient Allergies No Known Allergies Allergy (Verified 07/02/25 13:09) Tobacco use date assessed: 07/02/25 HPI HPI Comments History of Present Illness Details The patient is a 74-year-old male presenting with chronic low back pain and multiple other chronic conditions. He reports experiencing soreness and fatigue, with significant discomfort in his lower back due to previous trauma to the L4 region. Regular use of Tylenol (500 mg, 4-6 times daily) for pain relief is noted, with additional use of tramadol as needed. The patient also has a history of high blood pressure, controlled with medications including amlodipine, losartan, and metoprolol, maintaining blood pressure readings under the 130s. Essential hypertension is managed with current pharmacotherapy, and he denies any recent cardiovascular symptoms since previous myocardial infarction. A previous neck fracture at the C2 level resulted from a fall, with a history of alignment work and dehydration. This has contributed to his chronic pain syndromes, including carpal tunnel syndrome and scoliosis. He mentions a prior intervention for a blood clot in his leg, for which an Inferior Vena Cava (IVC) filter is in place post-pulmonary embolism. Hyperlipidemia is suggested by past lab results showing triglyceride levels of 233 and LDL borderline at 60. He remains on statin therapy. The patient reports symptoms consistent with PTSD, including difficulty sleeping due to nightmares and night sweats. However, he denies current depressive symptoms or feelings of hopelessness. He has a past medical history of GERD, managed with omeprazole, and denies active acid reflux currently. He also reports experiencing cataracts, for which he is under ophthalmologic care. Medical History: - Essential Hypertension - Chronic Low Back Pain - Scoliosis - Carpal Tunnel Syndrome - Gastroesophageal Reflux Disease (GERD) - History of Deep Vein Thrombosis - Coronary Artery Disease - Neck Fracture at C2 - PTSD - Cataracts - Hyperlipidemia Surgical History: - IVC filter placement for DVT and to pr event pulmonary embolism Medications: - Amlodipine for hypertension - Losartan for hypertension - Metoprolol for hypertension - Aspirin prophylactically for coronary artery disease - Omeprazole for GERD - Tylenol 500 mg, 4-6 times daily for ch ronic pain - Tramadol as needed for pain PFSH Medical History Pulmonary embolism Postoperative anemia due to acute blood loss [place] disease Hematoma GERD (gastroesophageal reflux disease) Elevated cholesterol Low back pain Depression CAD (coronary artery disease) Stable angina Gallstones Scoliosis Carpal tunnel syndrome C2 cervical fracture Arthritis Hypertension Surgical History S/P laparoscopic cholecystectomy Hx of carpal tunnel repair History of esophagogastroduodenoscopy (EGD) H/O colonoscopy History of cardiac cath Family History Father HTN (hypertension) Cardiac arrest Mother HTN (hypertension) Stroke Sister HTN (hypertension) Cancer Social History Household Members: Spouse Household Members Other:: tereza Housing: House Are you a primary career guidance counselor to a significant other at home: No Do you presently have visiting nurse or other home services: No Unable to assess alcohol history related to: Unable to respond Alcohol intake: never Patient Tobacco Use Status: Former Tobacco user Tobacco use type: Cigarette Years Smoked: 3 +/- e-Cigarette/Vaping Use: Never Used service: No Questionnaire PHQ-9 Over the last 2 weeks, how often have you been bothered by any of the following problems? 1. Little interest or pleasure in doing things: not at all 2. Feeling down, depressed, or hopeless: not at all 3. Trouble falling or staying asleep, or sleeping too much: several days 4. Feeling tired or having little energy: several days 5. Poor appetite or overeating: not at all 6. Feeling bad about yourself - or that you are a failure or have let yourself or your family down: not at all 7. Trouble concentrating on things, such as reading the newspaper or watching television: not at all 8. Moving or speaking so slowly that other people could have noticed. Or the opposite - being so fidgety or restless that you have been moving around a lot more than usual: not at all 9. Thoughts that you would be better off or of hurting yourself in some way: not at all Total score: 2 Depression Screening Interpretation: Negative Depression Screening Done: Yes 61184 - PHQ-9 Billing: Yes Source: Developed by Drs. Alexi Tariq, Rebeka Rowe, Clay Campos and colleagues, with an educational samir from [employer]. Thrive Questionnaire Date Thrive assessed: 02/19/24 AUDIT C Alcohol Use Questionnaire (AUDIT-C) 1. How often do you have a drink containing alcohol?: Never 3. How often do you have six or more drinks on one occasion?: Never Total Score: 0 Score Reviewed/Action Taken: Yes JOB-7 AMB Questionnaire JOB-7 Feeling nervous, anxious, or on edge: 1 = Several days Not being able to stop or control worryin = Several days Worrying too much about different things: 0 = Not at all Trouble relaxin = Several days Being so restless that it is hard to sit still: 0 = Not at all Becoming easily annoyed or irritable: 0 = Not at all Feeling afraid as if something awful might happen: 0 = Not at all Total JOB-7 score (0-4 normal; 5-9 mild; 10-14 moderate; 15-21 severe): 3 Source: Developed by Drs. Alexi Tariq, Rebeka Rowe, Clay Campos and colleagues, with an educational samir from [employer]. JOB-7 Assessment Billing JOB-7 Assessment Tool: JOB-7 Assessment 77478 Review of Systems Const Details: - General: Reports fatigue and tiredness. - Musculoskeletal: Reports chronic low back pain and back soreness. - Neurological: Denies recent headaches, but reports history of neck injury. - Cardiovascular: Denies chest pain or cardiac symptoms currently. - Respiratory: Denies shortness of breath. - Gastrointestinal: Denies current acid reflux symptoms; reports consistent GERD management. - Ophthalmologic: Reports cataracts, seeing an slab depiler operator regularly. - Psychological: Reports PTSD symptoms, including sleep disturbances; denies depressive symptoms. Constitutional: No fever, chills, sweats, weakness, or fatigue. Appetite is normal. Eye: No blurring of vision or double vision. No icterus. Ear/Nose/Mouth/Throat: No sore throat or nasal congestion. Respiratory: No shortness of breath, cough, wheezing. Cardiovascular: No chest pain, palpitations or peripheral edema. Gastrointestinal: No nausea, vomiting, diarrhea, constipation, or abdominal pain Genitourinary: no dysuria, hematuria, urgency or incontinence of urine. Endocrine: denies excessive thirst or polyuria, cold or heat intolerance Musculoskeletal: No back pain, joint pain or stiffness, joint swelling Integumentary: No rash or pruritis. Neurologic: No confusion, numbness, tingling, or headache. Psychiatric: No anxiety. No depression. All systems reviewed & are unremarkable except as noted in HPI and below Physical exam (Primary Care) Vital Signs: Last Vital Signs Temp 96.7 F L 07/02/25 13:12 Pulse 64 07/02/25 13:12 Resp 16 07/02/25 13:12 BP 168/80 H 07/02/25 13:12 Pulse Ox 97 07/02/25 13:12 Oxygen Delivery Method Room Air 07/02/25 13:12 BMI result Body Mass Index 31.8 Tobacco/Smoking Status: Tobacco use Status Tobacco use date assessed 07/02/25 07/02/25 13:09 Patient Tobacco Use Status Former Tobacco user 07/02/25 13:07 Tobacco use type Cigarette 07/02/25 13:07 e-Cigarette/Vaping Use Never Used 07/02/25 13:09 Depression Screening Interpretation: Negative Thrive Assessment: Date of Thrive Assessment Date Thrive assessed 02/19/24 07/02/25 13:07 Const Other: General: Alert and oriented, Well nourished, No acute distress. Eye: Pupils are equal, round and reactive to light, Intact accommodation, Extraocular movements are intact, Normal conjunctiva, Vision unchanged, Cataracts noted. HENT: Normocephalic, Atraumatic, Tympanic membranes are clear, Normal hearing, Oral mucosa is moist, No pharyngeal erythema, Ear canals patent. Respiratory: Lungs CTA bilaterally, No wheeze, Respirations are non-labored. Cardiovascular: Regular rate, Regular rhythm, S1 auscultated, S2 auscultated, No murmur, Good pulses equal in all extremities, Normal peripheral perfusion, No edema. Gastrointestinal: Soft, Non-tender, Non-distended, Normal bowel sounds, No organomegaly. Musculoskeletal: Normal range of motion, Normal strength, No tenderness, No swelling, No deformity, Normal gait, History of lower back pain, History of neck fracture, Scoliosis of the upper back, Carpal tunnel syndrome. Integumentary: Warm, Dry, [place], Intact. Neurologic: Alert, Oriented, Normal sensory, Normal motor function, No focal defects, Cranial Nerves II-XII are grossly intact, Normal deep tendon reflexes. Psychiatric: Cooperative, Appropriate mood & affect, Normal judgment, History of PTSD, Trouble staying asleep, Feeling tired or having less energy, Some difficulty relaxing, Easily annoyed or irritable. Results Reviewed Results Reviewed: - Labs: Triglycerides at 233, LDL cholesterol at borderline 60, last A1c was 5.4 - Tests: PSA test performed with levels under significant threshold - High triglyceride levels noted at 233 - LDL cholesterol level borderline at 60 - Last A1c level was 5.4 - PSA test was below significant levels; follow-up PSA testing recommended - IVC filter involvement due in 2023 COVID: Tetanus (Every 10 years): Shingrix (50+): Colonoscopy (45-75): HIV (15-65), Syphillis, Hep C: Pap Smear: LDCT: Coding Level of Care Code Est Pt Level 4 (43080) Est Pt Prev Care >65y(55283) Diagnoses Essential hypertension I10 Coronary artery disease I25.10 Fatigue R53.83 Low back pain M54.50 Acute deep vein thrombosis (DVT) of tibial vein of both lower extremities I82.443 DVT location: lower extremity Affected thrombotic vein of extremity: tibial Chronicity: acute Laterality: bilateral Additional Codes PHQ-9 - 29859 - PHQ-9 Billing: Yes ([id number]) JOB-7 Assessment Billing - JOB-7 Assessment Tool: JOB-7 Assessment 79436 ([id number]) Time Spent (min) 45 Assessment & Plan Assessment & Plan (1) Essential hypertension: Comment: Blood pressure is well controlled per home records, with pressures below 130 on amlodipine and metoprolol in addition to losartan 100 however patient does have elevated pressures in clinic today but does endorse having history of white coat hypertension. At this time I have reinforced continuous blood pressure mon itoring at home and will re-evaluate Neck visit Code(s): I10 - Essential (primary) hypertension Category: Medical Plan: Continue losartan 100 mg daily -continue metoprolol tartrate 25 mg. -continue amlodipine 5 mg q.h.s. (2) Coronary artery disease: Comment: Stable (stenting with [place] scientific stent) Currently on aspirin 81 mg for primary prophylaxis Code(s): I25.10 - Atherosclerotic heart disease of [place] coronary artery without angina pectoris Category: Medical Plan: Continue follow-up with Cardiology Continue aspirin 81 mg daily (3) Fatigue: Comment: Snores at night. Never had sleep study. Did reinforce possibility of repeat sleep study however did express not be interested at this time. We will obtain TSH levels suture no underlying hypothyroidism Code(s): R53.83 - Other fatigue Category: Medical Plan: Discussed sleep study at next clinic visit Order TSH (4) Low back pain: Comment: Has an extensive history of low back pain dating back from when he had a neck fracture in addition to being admitted to the hospital previously. Currently uses Tylenol and tramadol for pain control however does endorse spasms. At this time will add cyclobenzaprine p.r.n. to system with spasms. It strictly advised patient to not use tramadol and cyclobenzaprine together in addition to not using heavy machinery. Did explain the possible sedative properties of cycl obenzaprine Code(s): M54.50 - Low back pain, unspecified Category: Medical Plan: Limit Tylenol use Continue tramadol p.r.n. (avoid with cyclobenzaprine) Start cyclobenzaprine p.r.n. 5 mg (5) DVT (deep venous thrombosis): Comment: Prior history of DVTs and underwent IVC filter placement in 2023 Code(s): I82.409 - Acute embolism and thrombosis of unspecified deep veins of unspecified lower extremity Category: Medical Qualifiers: DVT location: lower extremity Affected thrombotic vein of extremity: tibial Chronicity: acute Laterality: bilateral Qualified Code(s): I82.443 - Acute embolism and thrombosis of tibial vein, bilateral Plan - Recommend continuation of current antihypertensive medications, ensuring monitoring of home blood pressure readings. - Advise reducing Tylenol intake to no more than 6 per day to mitigate liver risks. - Prescribe Flexeril 5 mg at night for three days to manage muscular spasms associated with back pain. - Continued use of omeprazole to manage GERD symptoms, considering patient reports no active acid reflux. - Discuss follow-up PSA testing and lipid panel monitoring due breast risk assessment. - Address cataracts with regular ophthalmology evaluations as planned. - Recommend exploration of pain management options if chronic pain persists beyond current regimen. - Encourage consistent follow-up for PTSD management, with implied consultation as necessary. Patient was informed and verbally consented to the use of an ambient scribe for clinic note documentation during this visit. During our conversation, I discussed with the patient the current management plan for his chronic pain, particularly focusing on limiting the use of Tylenol to prevent potential liver damage. The introduction of Flexeril as a trial for muscle spasm relief was agreed upon, underlining the importance of caution due to potential sedation effects. I detailed the need for consistent antihypertensive medication adherence and highlighted the stable control of blood pressure as favorable. For his elevated triglycerides and hyperlipidemia, statin therapy remains appropriate at the current dosage. We also talked about obtaining scheduled lab work to monitor lipid levels, PSA levels, and thyroid function, considering his symptoms of fatigue. Further, we touched on his regular eye exams due to cataracts, along with the importance of continuing current GERD treatment. We outlined home blood pressure monitoring and encouraged the patient to maintain scheduled follow-ups. The patient is aware of the necessity of revisiting care strategies, especially for his pain management and PTSD symptoms, as needed. Orders: Orders Hemoglobin A1c Today I10 - Essential (primary) hypertension TSH reflex Free T4 Today I10 - Essential (primary) hypertension PSA,Total (Free>4and<10) Today I10 - Essential (primary) hypertension Vitamin D 25-OH Total Today I10 - Essential (primary) hypertension Referrals Gastroenterology Referral I10 - Essential (primary) hypertension, Z12.11 - Encounter for screening for malignant neoplasm of colon Medications: New cyclobenzaprine 5 mg PO BEDTIME PRN 10 tabs 0RF muscle spasm 10 days M54.50 - Low back pain, unspecified Patient Instructions: - Take Flexeril as prescribed for managing muscle spasms; avoid operating heavy machinery. - Continue antihypertensive medication regimen as directed. - Limit Tylenol intake to no more than 6 tablets per day. - Follow up with regular ophthalmology appointments for cataract evaluation. - Adhere to PSA and blood pressure monitoring schedules. - Schedule follow-up visit in three months or as recommended. - Monitor and report any worsening symptoms or concerns immediately. - Consider pain management options if current measures become ineffective. - Maintain healthy lifestyle choices to support overall wellness.
[2025-07-02 13:12] VITALS: BP 168/80; PULSE 64; RESP 16; TEMP 35.9; O2SAT 97; BMI 31.8
--- OUTSIDE RECORDS SUMMARY | 2025-07-02 14:16 | XMS_ITS | Patient Health Record ---
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 Name Role Phone Sebas (RETIRED) Agustin BOSTON Primary Care Provider Unavailable Thai Camp Jr Unavailable [phone] Reason For Referral No Information Plan Of Treatment No Information Insurance Providers Payer Name Payer Address Payer Phone Subscriber Number Group Number Insured Name Patient Relationship to Insured Coverage Start Date Coverage End Date MEDICARE OF [place] [address] [place] [address] [phone] [id number] [place] MAYNARD Self - patient is the insured [employer] CLAIMS [address] [place] [address] [phone] [id number] MADISON MAYNARD Self - patient is the insured
== END 2025-07-02 14:59 | disposition home or self-care (01) ==
LOC: HO.HMCHD 13:02
PROVIDERS: PCP Student in an Organized Health Care Education/Training Program; Visit Provider Student in an Organized Health Care Education/Training Program
DX: I10 Essential (primary) hypertension (principal); I25.10 Atherosclerotic heart disease of native coronary artery without angina pectoris; R53.83 Other fatigue; M54.50 Low back pain, unspecified; I82.443 Acute embolism and thrombosis of tibial vein, bilateral; Z00.00 Encounter for general adult medical examination without abnormal findings

== ENCOUNTER 2025-08-27 13:21 | Outpatient (AMB) | payer MEDICARE, SELFPAY ==
--- NOTE | 2025-08-27 13:24 | MHC.OFFVIS ---
Vital Signs 08/27/25 13:26 Height 5 ft 6 in Weight 193 lb 1.999 oz BMI 31.2 BP 150/72 H Blood Pressure Location Lt brachial Position Sitting Pulse 61 Pulse Source Monitor Intake Visit Reasons: 1 yr f/up Teresar/s 07-23-25 Maintenance Instructor Required: No Accompanied by: Self / Same As Patient Allergies No Known Allergies Allergy (Verified 07/02/25 13:09) Medication List - Last Reconciled 08/27/25 by Te Monzon MD acetaminophen 500 mg PO Q6H PRN amlodipine 5 mg PO BEDTIME aspirin (Adult Low Dose Aspirin) 81 mg PO DAILY atorvastatin 20 mg PO Q OTHER DAY 90 days cholecalciferol (vitamin D3) 25 mcg PO DAILY cyclobenzaprine 5 mg PO BEDTIME PRN 10 days glucosamine-chondroitin 500-400 mg 1 cap PO DAILY losartan 100 mg PO BEDTIME magnesium oxide 500 mg PO DAILY mecobalamin (vitamin B12) 3,000 mcg PO DAILY metoprolol tartrate 25 mg See Protocol PO BID 90 days omeprazole 40 mg PO BID@0630,1630 90 days tramadol 50 mg PO BID PRN HPI Comments Details: Pleasant 75-year-old gentleman here for follow-up. He has known history of coronary artery disease and previous distal RCA into PDA PCI complicated by side branch occlusion which was PLV. He did well since then. He has no chest discomfort. Blood pressure is well controlled on the current regimen. He has stopped taking the Plavix. He is taking baby aspirin. No bleeding issues. He is limited due to arthritis but denying any significant chest discomfort shortness of breath. 08/02/23: He returns for follow-up. He is denying any chest discomfort shortness of breath. His main complaints in the are related to arthritis involving his lower back and hands. He is saying he continues to work and exercise and has no exertional symptoms. 07/31/24: Here for f/u. He was admitted to [facility] with the last year with cholecystitis and had a rough postsurgical course. He subsequently was readmitted with pancreatitis 2. He said he was in the hospital and rehab for approximately 2 months. He has recovered since then. Continues to get back pain and arthritis issues which limit him. He continues to exercise and do activities and is currently building a deck. 08/2025: Here for yearly follow-up. Continues to have aches and pains due to arthritis. His blood pressure is elevated in the office. It appears he had blood pressure checked on July 02 which was 168/80. No new symptoms to report otherwise. He does not drink alcohol. He takes Tylenol for arthritis and does not use any NSAIDs. [facility] Medical History Pulmonary embolism Postoperative anemia due to acute blood loss Karthaus disease Hematoma GERD (gastroesophageal reflux disease) Elevated cholesterol Low back pain Depression CAD (coronary artery disease) Stable angina Gallstones Scoliosis Carpal tunnel syndrome C2 cervical fracture Arthritis Hypertension Surgical History S/P laparoscopic cholecystectomy Hx of carpal tunnel repair History of esophagogastroduodenoscopy (EGD) H/O colonoscopy History of cardiac cath Family History Father HTN (hypertension) Cardiac arrest Mother HTN (hypertension) Stroke Sister HTN (hypertension) Cancer Social History Household Members: Spouse Household Members Other:: tereza Housing: House Are you a primary manager intensive care unit to a significant other at home: No Do you presently have visiting nurse or other home services: No Alcohol intake: never Patient Tobacco Use Status: Former Tobacco user Tobacco use type: Cigarette Years Smoked: 3 +/- e-Cigarette/Vaping Use: Never Used service: No Review of Systems Const Denies chills, Denies fatigue, Denies fever(s), Denies frequent falls, Denies weakness, Denies weight gain and Denies weight loss ENT Denies dizziness Card Denies chest pain, Denies leg edema, Denies lightheadedness, Denies palpitations, Denies dyspnea and Denies dyspnea on exertion Resp Denies cough, Denies dyspnea and Denies dyspnea on exertion GI Denies hematochezia Musc Denies abnormal gait, Denies muscle weakness, Denies numbness, Denies radiating pain into limb and Denies tingling Neuro Denies abnormal gait, Denies dizziness, Denies frequent falls, Denies numbness, Denies tingling and Denies weakness Endo Denies fatigue and Denies palpitations Physical Exam Vital Signs: Last Vital Signs Pulse 61 08/27/25 13:26 BP 150/72 H 08/27/25 13:26 BMI result Body Mass Index 31.2 GENERAL APPEARANCE: in no acute distress, well developed, well nourished. NECK/THYROID: no carotid bruit, no jugular venous distention. SKIN: no suspicious lesions, warm and dry. HEART: no murmurs, regular rate and rhythm, S1, S2 normal. LUNGS: clear to auscultation bilaterally. ABDOMEN: normal, bowel sounds present, soft, nontender, nondistended. EXTREMITIES: no clubbing, cyanosis, or edema. PERIPHERAL PULSES: equal. NEUROLOGIC: nonfocal, alert and oriented. PSYCH: mood/affect full range. Office Procedures EKG Details: Sinus rhythm 61 beats per minute, normal axis, anteroseptal infarct, inferior T-wave inversion, QTC 392 milliseconds. [id number], Complete Assessment & Plan Assessment & Plan (1) Essential hypertension: Comment: Blood pressure is well controlled per home records, with pressures below 130 on amlodipine and metoprolol in addition to losartan 100 however patient does have elevated pressures in clinic today but does endorse having history of white coat hypertension. At this time I have reinforced continuous blood pressure monitoring at home and will re-evaluate Neck visit Code(s): I10 - Essential (primary) hypertension Category: Medical (2) Coronary artery disease: Comment: Stable (stenting with [place] scientific stent) Currently on aspirin 81 mg for primary prophylaxis Code(s): I25.10 - Atherosclerotic heart disease of [place] coronary artery without angina pectoris Category: Medical Plan [age] gentleman who is here for follow-up. He has background history of coronary disease with previous RCA PCI. He has been doing well and has no anginal symptoms. His blood pressure is significantly elevated. He is taking amlodipine 5 mg, losartan 100 mg and metoprolol tartrate 25 mg twice a day. Adding hydrochlorothiazide and spironolactone combination. We will check blood workup in 2 weeks and the same day he will have blood pressure check with the nurse in our office. He will continue to follow up with us once a year. If his blood pressure is elevated at 2 weeks visit then we will adjust medications. Thank you for allowing me to participate in the care of your patient. Please feel free to contact me if you have any questions. Orders: Orders Basic Metabolic Panel Today I10 - Essential (primary) hypertension Medications: New spironolacton-hydrochlorothiaz 25-25 mg 1 tab PO DAILY 90 tabs 3RF Coding Level of Care Code Est Pt Level 4 (82628) Diagnoses Essential hypertension I10 Coronary artery disease I25.10 CPT Codes EKG - CPT: 79439-[id number], Complete ([id number])
[2025-08-27 13:26] VITALS: BP 150/72; PULSE 61; BMI 31.2
--- OUTSIDE RECORDS SUMMARY | 2025-08-27 16:25 | XMS_ITS | Patient Health Record ---
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 Name Role Phone Sebas (RETIRED) Agustin BOSTON Primary Care Provider Unavailable Thai Camp Jr Unavailable [phone] Reason For Referral No Information Plan Of Treatment No Information Insurance Providers Payer Name Payer Address Payer Phone Subscriber Number Group Number Insured Name Patient Relationship to Insured Coverage Start Date Coverage End Date MEDICARE OF [place] [address] [place] [address] [phone] [id number] MADISON MAYNARD Self - patient is the insured MED[employer] ATTN CLAIMS [address] [place] [address] [phone] [id number] MADIOSN MAYNARD Self - patient is the insured
== END 2025-08-27 13:48 | disposition home or self-care (01) ==
LOC: HO.HCS 13:22
PROVIDERS: PCP Student in an Organized Health Care Education/Training Program; Visit Provider Internal Medicine Cardiovascular Disease
DX: I10 Essential (primary) hypertension (principal); I25.10 Atherosclerotic heart disease of native coronary artery without angina pectoris
CPT/HCPCS: 93010; 99214

== ENCOUNTER → 2025-08-27 13:21 | Outpatient (BNVA) | payer MEDICARE, SELFPAY | PROVIDERS: PCP Student in an Organized Health Care Education/Training Program; Visit Provider Internal Medicine Cardiovascular Disease | DX: I25.10 Atherosclerotic heart disease of native coronary artery without angina pectoris (principal); I10 Essential (primary) hypertension; R94.31 Abnormal electrocardiogram [ECG] [EKG] | CPT/HCPCS: 93005; 99212 ==

== ENCOUNTER 2025-09-10 08:23 | Outpatient (REF) | payer MEDICARE, SELFPAY ==
--- OUTSIDE RECORDS SUMMARY | 2025-09-10 08:41 | XMS_ITS | Patient Health Record ---
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
[2025-09-10 09:36] LABS: Anion Gap 9 (12-20); Blood Urea Nitrogen 16 mg/dL (9-16); Calcium 9.6 mg/dL (8.4-10.2); Carbon Dioxide 29 mmol/L (22-29); Chloride 103 mmol/L (96-108); Estimated Glomerular Filt Rate > 60; Potassium 4.2 mmol/L (3.3-5.1); Sodium 137 mmol/L (135-145)
== END 2025-09-10 08:24 | disposition home or self-care (01) ==
LOC: HO.LAB 08:23
PROVIDERS: PCP Student in an Organized Health Care Education/Training Program; Visit Provider Internal Medicine Cardiovascular Disease
DX: I10 Essential (primary) hypertension (principal)
CPT/HCPCS: 36415; 80048

== ENCOUNTER 2025-10-02 08:08 | Outpatient (AMB) | payer MEDICARE, SELFPAY ==
--- OUTSIDE RECORDS SUMMARY | 2022-07-14 09:00 | XMS_ITS | Continuity of Care Document ---
Author Organization [facility] e Address [address] [place] [address] Phone Care Team Providers Care Poultryman Name Role Phone Leonard OD, Heather Unavailable Unavailable Allergies, Adverse Reactions, Alerts Substance Reaction Status Criticality No Known Allergies Active No Inform ation Medications Medication Instructions Dosage Effective Dates (start - stop) Status Comments aspirin 325 mg tablet - Active dapsone 100 mg tablet - Active Procedures Procedure Date Refraction Complete Eye Exam Refraction Complete Eye Exam Postop /Global At No g Postop /[facility] Post[facility] Postop /[facility] Sunglasses Extracapsular Cataract Remov I 19 Cataract Extraction With IOL NT IOL Optical Coherence Biometry Postop /Global At No g Postop /Global At No [facility] Optical Coherence Biometry Extracapsular Cataract Remov I 19 Cataract Extraction With IOL NT IOL Refraction Optical Coherence Biometry Complete Eye Exam Refraction Complete Eye Exam Refraction New Patient; CEX Advance Directives Directive Yes / No Effective Date File Name No Information Encounters Encounter Description Practice Location Reason(s) For Visit Diagnoses Date Provider Providers Copied on Encounter [facility], [address], [place], [place], [id number], [place] tel:[phone] [facility] LEELA (chief complaint) Vitreous degeneration, bilateral Sep-0 6-202 2 Leonard Heather. [address], [place], [place], [id number], [place]. tel:[phone] Referring Provider: Heather Persaud, [address], [place], [address] . tel:[phone] [facility], [address], [place], [place], [id number], [place] tel:[phone] [facility] routine exam (chief complaint) Vitreous degeneration, bilateral Nov-2 3-202 0 Leonard Heather. [address], [place], [place], [id number], [place]. tel:[phone] Referring Provider: Heather Persaud, [address], [place], [address] . tel:[phone] [facility], [address], [place], [place], [id number], [place] tel:[phone] [facility] POW # 3 OD (chief complaint) Presence of intraocular lens Apr-0 1-201 9 Mamta [place]. [address], [place], [place], [id number], [place]. tel:[phone] [facility], [address], [place], [place], [id number], [place] tel:[phone] [facility] 1 WKPO OD (chief complaint) Presence of intraocular lens Mar-1 5-201 9 Mamta [place]. [address], [place], [place], [id number], [place]. tel:[phone] Referring Provider: Ravi Ramirez, [address], [place], [address] . tel:[phone] [facility], [address], [place], [place], [id number], [place] tel:[phone] [facility] No Information Mar-[address] [facility]. [address], [place], [place], [id number], [place]. tel:[phone] Referring Provider: Ravi Ramirez, [address], [place], [address] . tel:[phone] [facility], [address], [place], [place], [id number], [place] tel:[phone] [facility] No Information Jan-0 9 [facility] [address], [place], [place], [id number], [place]. tel:[phone] Referring Provider: Ravi Ramirez, [address], [place], [address] . tel:[phone] [facility], [address], [place], [place], [id number], [place] tel:[phone] [facility] No Information Mar-0 [facility]. [address], [place], [place], [id number], [place]. tel:[phone] Referring Provider: Ravi Ramirez, [address], [place], [address] . tel:[phone] [facility], [address], [place], [place], [id number], [place] tel:[phone] [facility] 1 week PO OS (chief complaint) trouble with OD (chief complaint) Presence of intraocular lensAge-relate d nuclear cataract, left eye Mar-[address] [facility]. [address], [place], [place], [id number], [place]. tel:[phone] [facility], [address], [place], [place], [id number], [place] tel:[phone] [facility] No Information Mamta [place]ar[place]. [address], [place], [place], [id number], [place]. tel:[phone] Referring Provider: Ravi Ramirez, [address], [place], [address] . tel:[phone] [facility], [address], [place], [place], [id number], [place] tel:[phone] [facility] No Information [facility]. [address], [place], [place], [id number], [place]. tel:[phone] Referring Provider: Ravi Ramirez, [address], [place], [address] . tel:[phone] [facility], [address], [place], [place], [id number], [place] tel:[phone] [facility] No Information [facility] [address], [place], [place], [id number], [place]. tel:[phone] Referring Provider: Ravi Ramirez, [address], [place], [address] . tel:[phone] [facility], [address], [place], [place], [id number], [place] tel:[phone] [facility] trouble seeing to drive (chief complaint) Age-related nuclear cataract, bilateralPoste rior subcapsular polar age-related cataract, bilateral Dec-3 Mamta Rodrigues. [address], [place], [place], [address], [place]. tel:[phone] Referring Provider: Ravi Ramirez, [address], [place], [address] . tel:[phone] [facility], [address], [place], [place], [id number], tel:[phone] [facility] NS OU (chief complaint) Combined forms of age-related cataract, bilateral 7 No Information [facility], [address], [place], [place], [id number], tel:[phone] [facility] c/o diff seeing to read (chief complaint) Combined forms of age-related cataract, bilateral 6 No Information Family History Family Member Type Diagnosis Age At Onset No Information Immunizations Vaccine Date Status Comments Flu (split) (3 yrs or older) administered Source: Other Provider Flu (split) (3 yrs or older) administered Source: Other Provider Pneumo (2 yrs or older)(PPV) administered Note: refuses ; Source: Other Provider Flu (split) (3 yrs or older) administered Note: refuses ; Source: Other Provider Payers Payer name Insurance type Covered alliance party ID Authoriza tijessica(s) Medicare Part B [id number] [facility] [id number] Social History Type Description Quantity Date Captured Comments Alcohol Use Details No Caffeine Use Details No Tobacco Use Status Current non-smoker Smoking Status Never smoker Non-Smoking Tobacco Use Details : No Details Available : No Details Available Sex Male Chief Complaint And Reason For Visit From encounter dated '07/14/2022 14:00'. LEELA (chief complaint). Description: The 72 year old male presents for evaluation of LEELA. Patient states that his vision is unchanged. He denies using any drops. He also denies any pain or irritation.He states that his glasses are still doing well for him. Reason For Referral Reason For Referral No Information Plan Of Treatment Date Type Action Status Goal Tobacco cessation counseling completed Patient Education Cataracts: Care Instruc tions completed History Of Present Illness Encounter Date Complaint History Of Prese nt Illness LEELA The 72 year old male presents for evaluation of LEELA. Patient states that his vision is unchanged. He denies using any drops. He also denies any pain or irritation. He states that his glasses are still doing well for him. routine exam The 70 year old male presents for evaluation of routine exam. Patient states that vision is doing well. He is not using any drops. POW # 3 OD The 68 year old male presents for evaluation of POW # 3 OD. Pt states that his vision is doing good but he still has flashes of light in his OD while driving. Pt states that every once in a while it will feel like there is something in his eyes. Pt is currently using Pred Bladimir BID OD. 1 WKPO OD The 68 year old male presents for evaluation of 1 WKPO OD. Pt states his VA is doing great, He is pretty happy with the results. Pt D/C Besivance OS, is taking Durezol BID OS.And QID OD Durezol, Besivance bid OD. trouble with OD The patient is p resent for evaluation of trouble with OD. Pt states his distance vision is really blurry and is having trouble reading road signs out of his OS. 1 week PO OS The 68 year old male presents for evaluation of 1 week PO OS. Pt states his VA has improved and has no complaints with his OS. Pt is taking Vigamox TID, and Pred bladimir QID (but has not taken it today). 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 Says during the day he really has a hard time. No gtts at this time. NS OU The 67 year old male presents for evaluation of NS OU. Pt states that he has noticed some change in his distance vision. He states that he does not distingish things like he used to in the distance, like shooting and seeing colors . He states that he does not have problems driving at night, he states he does all the night driving because the sun light really bothers him. He states that he is real light sensitive. He states that he does not have any problems with his NVA. He does not use any gtts at this time. c/o diff seeing to read The 66 y ear old male presents for evaluation of c/o diff seeing to read. He was referred by his . He is c/o a gradual decrease in vision OU when reading. OS has always been a better eye. He denies any cataracts, eye surgery, prior eye problems. Its been about 5 years since his last eye exam. He denies any health problems and does not take any medications or use any eye drops. Functional Status Date Functional Assessmen t No Information Instructions Date Instruction Additional Infor carolyn RTC in 1 year for CE X with Dr. Valle/scribed by SS Related to Vitreous degeneration, bilateral Impression/Plan Related to Vitre ous degeneration, bilateral RTC in 1 year for CEX with KP/As h. Related to Vitreous degeneration, bilateral Impression/Plan Related to Vitre ous degeneration, bilateral Impression/Plan Related to Prese nce of intraocular lens Impression/Plan Related to Prese nce of intraocular lens Impression/Plan Related to Prese nce of intraocular lens Return in /as scheduled or prn R elated to Age-related nuclear cataract, bilateral Impression/Plan Related to Poste rior subcapsular polar age-related cataract, bilateral Impression/Plan Related to Age-r elated nuclear cataract, bilateral Return in 1 yr for C AT CEX. Seen by Dr. Pozo/momo Related to Combined forms of age-related cataract, bilateral Impression/Plan - Wi ll continue to watch, no change in Rx so pt will continue with current Rx for now. Related to Combined forms of age-related cataract, bilateral Follow up - Return i n 1 yr for CAT CEX. Seen by Dr. Pozo/momo Related to Combined forms of age-related cataract, bilateral Return in [address] Bulmaro Pozo for Cataract Complete , /scribed by Related to Combined forms of age-related cataract, bilateral Impression/Plan - Ca taracts account for the patient's complaints. No treatment currently recommended. The patient will monitor vision changes and contact us with any decrease in vision. New glasses Rx was given today. Related to Combined forms of age-related cataract, bilateral Follow up - Return i n [address] Bulmaro Pozo for Cataract Complete , /scribed by LG Related to Combined forms of age-related cataract, bilateral Assessments Type Assessment Date assessment Vitreous degeneration, bilateral impression Vitreous degeneration, bilateral : H43.813 Patient Care Teams Name Effective Dates (start - stop) Status Members No Information
--- NOTE | 2025-10-02 08:09 | A.OFFPC_ITS ---
Vital Signs 10/02/25 08:15 BP 136/68 Blood Pressure Location Lt brachial Position Sitting Respiration 18 Pulse 58 Pulse Source Pulse Oximeter Temp 96.6 F L Temp Source Temporal Artery Scan Pulse Oximetry (%) 98 Oxygen Delivery Method Room Air Intake Visit Reasons: 3 month f/u labs prior Financial Services Consultant Required: No Accompanied by: Spouse Allergies No Known Allergies Allergy (Verified 10/02/25 08:10) Medication List - Last Reconciled 10/02/25 by Brenden Rader MD acetaminophen 500 mg PO Q6H PRN amlodipine 5 mg PO BEDTIME aspirin (Adult Low Dose Aspirin) 81 mg PO DAILY atorvastatin 20 mg PO Q OTHER DAY 90 days cholecalciferol (vitamin D3) 25 mcg PO DAILY glucosamine-chondroitin 500-400 mg 1 cap PO DAILY losartan 100 mg PO BEDTIME magnesium oxide 500 mg PO DAILY mecobalamin (vitamin B12) 3,000 mcg PO DAILY metoprolol tartrate 25 mg See Protocol PO BID 90 days omeprazole 40 mg PO BID@0630,1630 90 days spironolacton-hydrochlorothiaz 25-25 mg 1 tab PO DAILY tramadol 50 mg PO BID PRN Tobacco use date assessed: 07/02/25 HPI HPI Comments History of Present Illness Details History of Present Illness The patient is a 75 year old individual presenting for medication management and evaluation of fatigue, cramps, and hoarseness. The patient was recently started on spironolactone-hydrochlorothiazide for hypertension by another provider after a blood pressure reading of 160s, which had been slowly increasing over the last year and a half. Today's blood pressure is 136, an improvement from 150s at the last visit on the , and home blood pressure readings are in the 120s-130s. The patient's current antihypertensive regimen also includes amlodipine 5 mg, losartan 100 mg, and metoprolol tartrate 25 mg twice a day. The patient reports experiencing extreme fatigue and a cough with hoarseness since starting the spironolactone-hydrochlorothiazide. The patient's partner notes that it has become an effort for the patient to get up and do things, and the patient now falls asleep in the recliner after coming inside. The patient has a history of GERD and peptic ulcers, for which the patient takes omeprazole. The patient has been taking it at night for 30 years and attempted to stop it in the past but could not. There was confusion over a recent prescription change that suggested taking it twice a day, but this was clarified to be once daily. The patient reports muscle cramps and was concerned they may be related to low magnesium from omeprazole use. The cramps primarily affect the legs, specifically the calf area, and can be severe enough to wake the patient from sleep. The patient has been using a heating pad at night for relief. For hyperlipidemia, the patient takes atorvastatin 20 mg every other day, with labs from January showing triglycerides of 76 and total cholesterol of 177. The patient has a history of intermittent back pain that started after being hospitalized for five weeks following an operation two years ago, which tweaked the back. The patient has tramadol and Tylenol available but has not used tramadol in 6-7 months. 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 Medical History: - Essential Hypertension - Gastroesophageal Reflux Disease (GERD) - History of peptic ulcers - Hyperlipidemia - Coronary Artery Disease with prior aníbal nt placement - Chronic back pain with history of dege nerative disc disease at L5-6 - Arthritis - History of sleep apnea Surgical History: - History of coronary stent placement - Unspecified operation two years ago wi th a five-week hospitalization Medications: - Spironolactone-hydrochlorothiazide 25- 25 mg for hypertension - Omeprazole for GERD, to be taken once daily - Amlodipine 5 mg for hypertension - Losartan 100 mg for hypertension - Metoprolol tartrate 25 mg twice a day for hypertension - Atorvastatin 20 mg every other day for hyperlipidemia - Magnesium oxide 500 mg, taking 2-4 pil ls per day - Tramadol as needed for back pain (not used in 6-7 months) - Tylenol as needed for back pain - Aspirin (implied for status post coron david stent) Diagnostic Results: - Labs (from January): Triglycerides 76 mg /dL, Total Cholesterol 177 mg/dL. - Vital Signs: Today's blood pressure is 136 mmHg systolic, improved from 150s mmHg on the . - Labs (Recent): Electrolytes were check ed and were normal. 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 - Activity Level: Reports being active a nd doing a lot outside. - Substance Use: Reports a past history of drinking gallons of coffee per day. - Sleep: Typically gets 5 to 7 hours of sleep per night, awakens at 4 or 5 a.m. feeling rested. - Nutrition: Notes irregular eating antonia erns and heavy coffee consumption in the past. [facility] Medical History (Updated 10/02/25 @ 08:49 by Brenden Rader MD) Muscle cramps GERD without esophagitis Pulmonary embolism Postoperative anemia due to acute blood loss [place] disease Hematoma GERD (gastroesophageal reflux disease) Elevated cholesterol Low back pain Depression CAD (coronary artery disease) Stable angina Gallstones Scoliosis Carpal tunnel syndrome C2 cervical fracture Arthritis Hypertension Surgical History S/P laparoscopic cholecystectomy Hx of carpal tunnel repair History of esophagogastroduodenoscopy (EGD) H/O colonoscopy History of cardiac cath Family History Father HTN (hypertension) Cardiac arrest Mother HTN (hypertension) Stroke Sister HTN (hypertension) Cancer Social History Household Members: Spouse Household Members Other:: tereza Housing: House Are you a primary childcare director to a significant other at home: No Do you presently have visiting nurse or other home services: No Alcohol intake: never Patient Tobacco Use Status: Former Tobacco user Tobacco use type: Cigarette Years Smoked: 3 +/- e-Cigarette/Vaping Use: Never Used service: No Questionnaire Thrive Questionnaire Date Thrive assessed: 02/19/24 Review of Systems Narrative Review of Systems - Constitutional: Reports extreme fatigue and feeling weakened. - Respiratory: Reports a cough and hoarseness that has worsened since starting a new medication. - Gastrointestinal: Reports acid reflux, especially when going to bed. - Musculoskeletal: Reports muscle cramps, primarily in the legs and calves, which can disrupt sleep. - Reports intermittent back pain. - Reports arthritis and joint pain in the hands. - Neurological: Reports waking up feeling rested. - Denies significant snoring. All systems reviewed & are unremarkable except as reviewed in HPI and above Physical exam (Primary Care) Vital Signs: Last Vital Signs Temp 96.6 F L 10/02/25 08:15 Pulse 58 10/02/25 08:15 Resp 18 10/02/25 08:15 BP 136/68 10/02/25 08:15 Pulse Ox 98 10/02/25 08:15 Oxygen Delivery Method Room Air 10/02/25 08:15 Tobacco/Smoking Status: Tobacco use Status Tobacco use date assessed 07/02/25 10/02/25 08:14 Patient Tobacco Use Status Former Tobacco user 10/02/25 08:14 Tobacco use type Cigarette 10/02/25 08:14 e-Cigarette/Vaping Use Never Used 10/02/25 08:14 Thrive Assessment: Date of Thrive Assessment Date Thrive assessed 02/19/24 10/02/25 08:14 Narrative Physical Exam General: +Alert and oriented, Well nourished, No acute distress. Eye: Pupils are equal, round and reactive to light, Intact accommodation, Extraocular movements are intact, Normal conjunctiva, Vision unchanged. HENT: Normocephalic, Atraumatic, Tympanic membranes are clear, Normal hearing, Oral mucosa is moist, No pharyngeal erythema, Ear canals patent. Respiratory: Lungs CTA bilaterally, No wheeze, Respirations are non-labored. Cardiovascular: Regular rate, Regular rhythm, S1 auscultated, S2 auscultated, No murmur, Good pulses equal in all extremities, Normal peripheral perfusion, No edema. Gastrointestinal: Soft, Non-tender, Non-distended, Normal bowel sounds, No organomegaly. Musculoskeletal: Normal range of motion, Normal strength, No tenderness, No swelling, No deformity, Normal gait. Integumentary: Warm, Dry, [place], Intact. Neurologic: Alert, Oriented, Normal sensory, Normal motor function, No focal defects, Cranial Nerves II-XII are grossly intact, Normal deep tendon reflexes. Psychiatric: Cooperative, Appropriate mood & affect, Normal judgment. Coding Level of Care Code Est Pt Level 4 (75231) Complex visit Add On G2211 Diagnoses Essential hypertension I10 Coronary artery disease involving [place] coronary artery of [place] heart without angina pectoris I25.10 Coronary Disease-Associated Artery/Lesion type: [place] artery [place] vs. transplanted heart: [place] heart Associated angina: without angina GERD without esophagitis K21.9 Chronic fatigue R53.82 Fatigue type: chronic, unspecified Chronic low back pain without sciatica, unspecified back pain laterality M54.50; G89.29 Chronicity: chronic Back pain laterality: unspecified Sciatica presence: without sciatica Acute deep vein thrombosis (DVT) of tibial vein of both lower extremities I82.443 DVT location: lower extremity Affected thrombotic vein of extremity: tibial Chronicity: acute Laterality: bilateral Muscle cramps R25.2 Assessment & Plan Assessment & Plan (1) Essential hypertension: Comment: - The patient's blood pressure is improving on the new regimen of spironolactone-hydrochlorothiazide, in addition to amlodipine, losartan, and metoprolol. - However, the patient is experiencing significant fatigue and hoarseness, which are likely side effects. - The plan is to split the spironolactone-hydrochlorothiazide tablet in half and take it twice daily to mitigate side effects while maintaining blood pressure control. - The importance of spironolactone for its cardioprotective effects in preventing cardiac remodeling post-stent was discussed. Code(s): I10 - Essential (primary) hypertension Category: Medical (2) Coronary artery disease: Comment: Stable (stenting with [place] [employer] stent) Currently on aspirin 81 mg for primary prophylaxis Code(s): I25.10 - Atherosclerotic heart disease of [place] coronary artery without angina pectoris Category: Medical Qualifiers: Coronary Disease-Associated Artery/Lesion type: [place] artery [place] vs. transplanted heart: [place] heart Associated angina: without angina Qualified Code(s): I25.10 - Atherosclerotic heart disease of [place] coronary artery without angina pectoris (3) GERD without esophagitis: Comment: - The patient has been taking omeprazole incorrectly. - The plan includes providing education on the proper administration of omeprazole: take one pill daily, 30-40 minutes before the first meal on an empty stomach, to improve efficacy. - The prescription was clarified to be for once-daily dosing. Code(s): K21.9 - Gastro-esophageal reflux disease without esophagitis Category: Medical (4) Fatigue: Comment: - The fatigue is attributed to the body acclimatizing to normal blood pressure levels and is expected to resolve over the next few weeks. - Splitting the diuretic medication may also alleviate this symptom. Code(s): R53.83 - Other fatigue Category: Medical Qualifiers: Fatigue type: chronic, unspecified Qualified Code(s): R53.82 - Chronic fatigue, unspecified (5) Low back pain: Comment: Continues to have occasional low back pain that he treats with Tylenol and as needed tramadol. He reports using tramadol sparingly. Did not use cyclobenzaprine previously prescribed Code(s): M54.50 - Low back pain, unspecified Category: Medical Qualifiers: Chronicity: chronic Back pain laterality: unspecified Sciatica presence: without sciatica Qualified Code(s): M54.50 - Low back pain, unspecified; G89.29 - Other chronic pain (6) DVT (deep venous thrombosis): Comment: Prior history of DVTs and underwent IVC filter placement in 2023 Code(s): I82.409 - Acute embolism and thrombosis of unspecified deep veins of unspecified lower extremity Category: Medical Qualifiers: DVT location: lower extremity Affected thrombotic vein of extremity: tibial Chronicity: acute Laterality: bilateral Qualified Code(s): I82.443 - Acute embolism and thrombosis of tibial vein, bilateral (7) Muscle cramps: Comment: - The cramps are likely multifactorial, with potential contributions from atorvastatin and omeprazole-induced magnesium depletion. - The plan is to move atorvastatin administration to nighttime. - Advised to limit magnesium supplementation to one 500 mg pill per day. - A new prescription for cyclobenzaprine was sent for as-needed use for severe cramps. Code(s): R25.2 - Cramp and spasm Category: Medical Plan: Health Maintenance: - Medication counseling provided regarding the appropriate timing of omeprazole (morning, empty stomach) and atorvastatin (nighttime). - Discussed dietary importance for managing GERD. - Advised limiting magnesium supplementation to one pill daily. - Future labs ordered to monitor cholesterol, sugars, and other markers, to be completed before the next visit in 3 months. - Patient scheduled for a follow-up and physical exam in 3 months. Patient was informed and verbally consented to the use of an ambient scribe for clinic note documentation during this visit. Plan I discussed with the patient and the patient's partner the rationale for the recent changes in the medication regimen and the management of current symptoms. I explained that the new-onset fatigue is a common side effect of blood pressure normalization and should improve over time; to help with this, I recommended splitting the spironolactone-hydrochlorothiazide dose. I also emphasized the cardioprotective benefit of spironolactone in preventing cardiac remodeling, suggesting the benefit outweighs the side effect of hoarseness. I provided extensive education regarding the proper administration of omeprazole for GERD, instructing the patient to take it 30-40 minutes before the first meal of the day on an empty stomach for it to be effective. We discussed that the muscle cramps could be related to atorvastatin, and I advised moving the dose to nighttime. I also recommended limiting magnesium intake to one pill a day and provided a prescription for cyclobenzaprine to be t aken only as needed for severe, disruptive cramps. The patient initially expressed hesitation about adding another pill but agreed to the as-needed plan. I have ordered blood work to be done the week prior to the follow-up visit in three months, at which time we will have a comprehensive discussion of the results. Orders: Orders Complete Blood Count Auto Diff 3 Months Z00.00 - Encounter for general adult medical examination without abnormal findings Hemoglobin A1c 3 Months Z00.00 - Encounter for general adult medical examination without abnormal findings Lipid Panel 3 Months Z00.00 - Encounter for general adult medical examination without abnormal findings Microalbumin, Random (w Creat) 3 Months Z00.00 - Encounter for general adult medical examination without abnormal findings Syphilis Screen 3 Months Z00.00 - Encounter for general adult medical examination without abnormal findings Magnesium 3 Months Z00.00 - Encounter for general adult medical examination without abnormal findings Phosphorus 3 Months Z00.00 - Encounter for general adult medical examination without abnormal findings Comprehensive Met. Panel 3 Months Z00.00 - Encounter for general adult medical examination without abnormal findings Hepatitis A,B,C Profile 3 Months Z00.00 - Encounter for general adult medical examination without abnormal findings HIV Ab/Ag 3 Months Z00.00 - Encounter for general adult medical examination without abnormal findings TSH reflex Free T4 3 Months Z00.00 - Encounter for general adult medical examination without abnormal findings Vitamin D 25-OH Total 3 Months Z00.00 - Encounter for general adult medical examination without abnormal findings Medications: New cyclobenzaprine 5 mg PO BEDTIME PRN 30 tabs 0RF muscle spasm Discontinued cyclobenzaprine Discontinued Reason: Doctor's Order 5 mg PO BEDTIME 10 days PRN 10 tabs 0RF muscle spasm M54.50 - Low back pain, unspecified Patient Instructions: - Take your omeprazole pill once a day, in the morning, about 30-40 minutes before you eat anything on an empty stomach. - Split your new blood pressure pill (spironolactone-hydrochlorothiazide) in half. - Take the two halves at different times during the day. - Continue to check your blood pressure at home and keep a record. - Take your atorvastatin (cholesterol pill) at night instead of during the day. - Take only one magnesium pill per day. - You have a new prescription for a muscle relaxant called cyclobenzaprine. - This is an as needed medication, meaning you should only take a pill if you have severe muscle cramps that wake you up or cause major discomfort. - Get blood work done at the lab one week before your next appointment. - Follow up in the clinic in three months for your annual physical.
[2025-10-02 08:15] VITALS: BP 136/68; PULSE 58; RESP 18; TEMP 35.9; O2SAT 98
== END 2025-10-02 08:40 | disposition home or self-care (01) ==
LOC: HO.HMCHD 08:08
PROVIDERS: PCP Student in an Organized Health Care Education/Training Program; Visit Provider Student in an Organized Health Care Education/Training Program
DX: I10 Essential (primary) hypertension (principal); I25.10 Atherosclerotic heart disease of native coronary artery without angina pectoris; K21.9 Gastro-esophageal reflux disease without esophagitis; R53.82 Chronic fatigue, unspecified; M54.50 Low back pain, unspecified; G89.29 Other chronic pain; I82.443 Acute embolism and thrombosis of tibial vein, bilateral; R25.2 Cramp and spasm

== ENCOUNTER → 2025-10-02 08:08 | Outpatient (BNVA) | payer MEDICARE, SELFPAY | PROVIDERS: PCP Student in an Organized Health Care Education/Training Program; Visit Provider Student in an Organized Health Care Education/Training Program | DX: I10 Essential (primary) hypertension (principal); I25.10 Atherosclerotic heart disease of native coronary artery without angina pectoris; K21.9 Gastro-esophageal reflux disease without esophagitis; R53.82 Chronic fatigue, unspecified; R25.2 Cramp and spasm; R49.0 Dysphonia; E78.5 Hyperlipidemia, unspecified; M54.50 Low back pain, unspecified; G89.29 Other chronic pain; I82.443 Acute embolism and thrombosis of tibial vein, bilateral; Z87.11 Personal history of peptic ulcer disease; Z95.5 Presence of coronary angioplasty implant and graft; Z79.82 Long term (current) use of aspirin; Z79.899 Other long term (current) drug therapy | CPT/HCPCS: 99212 ==